=== PATIENT | female | born 1935 | race Caucasian/White ===

== ENCOUNTER 2020-11-15 09:23 | Outpatient (CLI) | payer MEDICARE, SELFPAY ==
[2020-11-15 12:41] LABS: Hemoglobin A1C 5.8 % (<5.7)
== END 2020-11-15 09:24 | disposition home or self-care (01) ==
LOC: ANHLAB 09:34
DX: R73.9 Hyperglycemia, unspecified (principal)
CPT/HCPCS: 36415; 83036

== ENCOUNTER 2021-12-11 09:38 | Emergency (ER) | payer MEDICARE, SELFPAY ==
[2021-12-11 09:46] VITALS: BP 108/72; PULSE 91; RESP 16; TEMP 36.6; O2SAT 99
--- NOTE | 2021-12-11 10:39 | ED.GENADULT ---
HPI - General Adult General Chief complaint: Skin/Abscess/Foreign Body Stated complaint: rash Time Seen by Provider: 12/11/21 10:08 History of Present Illness HPI narrative: Patient is an 86-year-old female presenting with intermittent urticaria. Patient states that for the last several weeks she will randomly develop a couple of itchy hives which she then scratches until they become scabs. Patient states that she was given steroids by her PCP which did not provide relief. Patient was concerned that these lesions are bug bites so she came in for evaluation. She denies fevers or chills, headache, chest pain, shortness of breath, abdominal pain, nausea or vomiting, diarrhea, dysuria, leg swelling. She denies blistering. She denies any new detergents or lotions or other exposures. Patient states that she does have a product coordinator but she has not yet made an appointment with them regarding this issue. Related Data Home Medications Medication Instructions Recorded Confirmed amlodipine 5 mg tablet 5 mg PO DAILY 01/06/19 01/12/19 atorvastatin 20 mg tablet 20 mg PO DAILY 01/06/19 01/06/19 biotin 1,000 mcg chewable tablet 1,000 mcg PO DAILY 01/06/19 01/06/19 clonazepam 0.5 mg tablet 0.5 mg PO BID 01/06/19 01/12/19 duloxetine 60 mg capsule,delayed 60 mg PO BID 01/06/19 01/06/19 release hydrochlorothiazide 12.5 mg capsule 12.5 mg PO DAILY 01/06/19 01/06/19 levothyroxine 50 mcg tablet 50 mcg PO DAILY 01/06/19 01/06/19 (Synthroid) potassium chloride 10 mEq 10 meq PO DAILY 01/06/19 01/06/19 tablet,extended release Allergies Allergy/AdvReac Type Severity Reaction Status Date / Time ciprofloxacin Allergy Intermediate Other Verified 12/11/21 09:46 sulfamethoxazole Allergy Unknown UPSET Verified 12/11/21 09:46 STOMACH trimethoprim Allergy Unknown UPSET Verified 12/11/21 09:46 STOMACH valsartan Allergy Unknown Other Verified 12/11/21 09:46 nitrofurantoin AdvReac Mild Nausea Verified 12/11/21 09:46 MACROBID=V/D Allergy Mild Unknown Uncoded 12/11/21 09:46 Review of Systems Review of Systems: All systems reviewed & are unremarkable except as noted in HPI and below PMFSH Past Medical History Medical History Hyperlipidemia Hypertension Hypothyroid Migraine Spinal stenosis Social History Social History Gender identity (if verbalized by the patient): Female Exam Narrative: GENERAL: Well-appearing, well-nourished, and in no acute distress. HEAD: Normocephalic, atraumatic. EYES: PERRLA and EOMI. ENT: Nares clear, no rhinorrhea or epistaxis. Mucous membranes moist. NECK: Supple. CHEST: Clear to auscultation. No respiratory distress. HEART: Regular rate and rhythm. No murmur heard. Normal peripheral pulses. ABDOMEN: Soft, nontender, nondistended, normal active bowel sounds. EXTREMITIES: Normal range of motion. No edema. SKIN: Small erythematous lesion anterior left thigh that is consistent with urticaria, she has several scattered small scabs on her legs and upper back that she states started as hives, no evidence of surrounding erythema or drainage, no blistering NEURO: No focal deficits. Alert and oriented x3. PSYCH: Normal mood and affect. Course Course Emergency Course: Patient is an 86-year-old female with history as above presenting with intermittent urticaria. Vitals are within normal limits. Patient is well-appearing and in no acute distress. Exam is remarkable for the above. Patient points to a small lesion on her anterior left thigh as an example of how these lesions began. It appears to be a hive. Patient states that they then become scabs after she scratches them. I discussed with the patient about trying to abstain from scratching as much as possible. We will trial some loratadine for symptomatic control. Advised that she follow-up with her product coordinator. Appropriate return precaution
[2021-12-11] MEDS: LORATADINE 10 MG TABLET PO (11:05)
== END 2021-12-11 11:12 | disposition home or self-care (01) ==
PROVIDERS: Emergency Provider Emergency Medicine
DX: L50.9 Urticaria, unspecified (principal); E78.5 Hyperlipidemia, unspecified; I10 Essential (primary) hypertension; E03.9 Hypothyroidism, unspecified
CPT/HCPCS: 99283; A9270

== ENCOUNTER 2022-05-13 07:02 | Emergency (ER) | payer MEDICARE, SELFPAY ==
--- NOTE | ~2022-05-13 | CT_ITS ---
CT head without contrast Indication: Headache Technique: Serial scans were obtained through the brain without the administration of contrast. Dose reduction technique was used on this scan by utilizing automated exposure control and iterative recon struction technique. The dose-length product (DLP) was 605.33 mGy-cm. Findings: There is no evidence of intracranial hemorrhage, mass lesion, or acute infarct. The ventri cles and subarachnoid spaces are dilated, consistent with mild atrophy. Low attenuation regions are seen within the periventricular white matter bilaterally, likely representing changes from chronic mi crovascular ischemic disease. There is no evidence of edema, mass effect or midline shift. The visu alized paranasal sinuses and mastoid air cells are clear. Impression: No intracranial hemorrhage, mass, or acute infarct. Atrophy and chronic white matter changes, as above. Reviewed, dictated and finalized at location . Impression: No intracranial hemorrhage, mass, or acute infarct. Atrophy and chronic white matter changes, as above.
--- NOTE | ~2022-05-13 | CT_ITS ---
Noncontrast CT scan of the cervical spine Technique: Multiple contiguous axial [address] images of the cervical spine were obtained and rec onstructed in 2D sagittal and coronal planes on the acquisition scanner. Dose reduction technique was used on this scan by utilizing automated exposure control, adjustment of the mA and/or kV according to patient size. Clinical History: Pain Findings: No fracture identified. Minimal grade 1 anterolisthesis of C3 over C4 noted. There is advan josephine degenerative change at the articulation of the odontoid process with the anterior arch of C1. The re is moderate degenerative disc narrowing at C4-C5 and C5-C6. There is mild to moderate facet arthro miguel throughout the cervical spine. There is probable right neural foraminal narrowing at C3-C4 and C4-C5. No prevertebral soft tissue swelling. Impression: No fracture. Minimal grade 1 anterolisthesis of C3 over C4. Degenerative spondylosis, as above. Reviewed, dictated and finalized at [facility]. Impression: No fracture. Minimal grade 1 anterolisthesis of C3 over C4. Degenerative spondylosis, as above.
[2022-05-13 07:05] VITALS: BP 128/78; PULSE 80; RESP 16; TEMP 36.4; O2SAT 98
--- NOTE | 2022-05-13 07:15 | ED.GENADULT ---
HPI - General Adult General Chief complaint: Unspecified Stated complaint: neck/head pain History of Present Illness HPI narrative: 87-year-old female with history of chronic lower back pain presented to the emergency department for evaluation of upper back pain and neck pain that radiated to her head. Patient states over the last few weeks she has had lower back pain and has had a follow-up at [facility] for this pain. Patient was unsure of the results of her imaging. Patient has been taking tramadol and aspirin for her pain control. Patient states that last night her back pain radiated up to her upper back and into her neck and posterior scalp. Patient does have a burn to her right forehead that she states was from using a heating pad on her head while she was sleeping. Patient states that she is concerned about having a stroke this morning due to the level of pain so she presented to the emergency department by EMS for evaluation. Patient has no prior history of CVA. Patient denies any recent falls or injuries. Patient denies any cough colds or fevers. Patient reports no associated numbness or weakness with this. Related Data Home Medications Medication Instructions Recorded Confirmed amlodipine 5 mg tablet 5 mg PO DAILY 01/06/19 01/12/19 atorvastatin 20 mg tablet 20 mg PO DAILY 01/06/19 01/06/19 biotin 1,000 mcg chewable tablet 1,000 mcg PO DAILY 01/06/19 01/06/19 clonazepam 0.5 mg tablet 0.5 mg PO BID 01/06/19 01/12/19 duloxetine 60 mg capsule,delayed 60 mg PO BID 01/06/19 01/06/19 release hydrochlorothiazide 12.5 mg capsule 12.5 mg PO DAILY 01/06/19 01/06/19 levothyroxine 50 mcg tablet 50 mcg PO DAILY 01/06/19 01/06/19 (Synthroid) potassium chloride 10 mEq 10 meq PO DAILY 01/06/19 01/06/19 tablet,extended release Allergies Allergy/AdvReac Type Severity Reaction Status Date / Time ciprofloxacin Allergy Intermediate Other Verified 12/11/21 09:46 valsartan Allergy Unknown Other Verified 12/11/21 09:46 nitrofurantoin AdvReac Mild Nausea,Vomiting, Verified 05/13/22 07:14 Diarrhea sulfamethoxazole AdvReac Unknown UPSET Verified 05/13/22 07:14 STOMACH trimethoprim AdvReac Unknown UPSET Verified 05/13/22 07:14 STOMACH Review of Systems Review of Systems: All systems reviewed & are unremarkable except as noted in HPI and below PMFSH Past Medical History Medical History Hyperlipidemia Hypertension Hypothyroid Migraine Spinal stenosis Social History Social History Gender identity (if verbalized by the patient): Female Exam Narrative: APPEARANCE: Well appearing, no pain, no distress, well-nourished. HEAD: normocephalic, atraumatic. EYES: PERRLA/EOMI, conjunctivae clear. NOSE: Normal no drainage EARS:TMS clear with good light reflex. THROAT: Pharynx clear, no exudate. NECK: Supple. No adenopathy, no masses. RESPIRATORY: Airway patent, respirations nonlabored. Clear to auscultation bilaterally, no rales, rhonchi, wheezing. CARDIOVASCULAR: Regular rate and rhythm without murmurs rubs or gallops. ABDOMINAL: Soft, nontender, nondistended, normal bowel sounds MUSCULOSKELETAL: Moves all extremities. Cervical spine tenderness with tenderness of the paraspinal muscles. Tenderness into the right shoulder. NEURO: Alert. Cranial nerves II through XII intact. Good gait. Good coordination. No paresthesias or weakness SKIN: Healing burn to right forehead with associated ecchymosis but no erythema or concern for underlying cellulitis or infection Course Course Emergency Course: 87-year-old female with neck and posterior headache. CT cervical spine and CT brain were ordered to rule out for acute fracture dislocation or intracranial abnormality. CT C-spine did show a minimal grade 1 anterolisthesis of C3 on C4. Patient is neurovascular intact and denies any associated numbness or weakn
[2022-05-13] MEDS: CYCLOBENZAPRINE HCL 10 MG TABLET PO (07:22)
[2022-05-13 10:07] VITALS: BP 103/67; O2SAT 96
[2022-05-13] MEDS: HYDROcodone/acetaminophen (*CRX) 5-325 MG TABLET 1 TAB PO (10:10)
[2022-05-13 10:16] VITALS: BP 118/102; O2SAT 94
[2022-05-13 10:32] VITALS: BP 104/50; O2SAT 97
== END 2022-05-13 10:33 | disposition home or self-care (01) ==
PROVIDERS: Emergency Provider Emergency Medicine
DX: M43.12 Spondylolisthesis, cervical region (principal); M54.2 Cervicalgia; E78.5 Hyperlipidemia, unspecified; I10 Essential (primary) hypertension; E03.9 Hypothyroidism, unspecified; M47.812 Spondylosis without myelopathy or radiculopathy, cervical region
CPT/HCPCS: 70450; 72125; 99284; A9270

== ENCOUNTER 2022-08-03 09:17 | Emergency (ER) | payer MEDICARE, MEDICAID, SELFPAY ==
--- NOTE | ~2022-08-03 | CT_ITS ---
EXAMINATION: CT abdomen pelvis wo con DATE: 08/03/2022 10:44 INDICATION: Right flank pain, dysuria. TECHNIQUE: Computed tomography (CT) of the abdomen and pelvis was performed without intravenous contr ast. Automated exposure control and iterative reconstruction technique were employed. Exam dose: 467 .82 mGy-cm total exam DLP. COMPARISON: None. FINDINGS: There is by basilar atelectasis, primarily involving the lower lobes. Cardiomegaly. No pericardial or pleural effusion. There is some aortic valvular calcification Moderately large sliding hiatal hernia. The gallbladder is apparently surgically absent. No hepatic space-occupying mass lesion or bile duct dilatation. There are some calcified splenic and hepatic granulomas. No splenomegaly. There is pancre atic atrophy. No pancreatic duct dilatation or pancreatic calcification is noted. Normal morphology of the adrenal glands. There is a 6 mm hypodensity exophytic cortical cyst of the l eft kidney with attenuation of the 100 Hounsfield units. No suspicious renal mass lesion is evident o n this limited noncontrast examination. No urinary tract calculus or hydroureteronephrosis. There is prominent diffuse thickening of the urinary bladder wall with prominent perivesical fat stra nding, consistent with cystitis. There are multiple sigmoid colon diverticula. There is increased density in the fat between adjacent sections of the sigmoid colon which may be due to diverticulitis. No bowel obstruction, bowel wall thickening, pneumatosis or intraperitoneal free air is detected. There is extensive calcification of the included descending thoracic aorta as well as the abdominal a kiki, prominent calcification at the origins of the celiac, superior mesenteric and renal arteries in addition to the iliac and femoral artery calcifications. No abdominal aortic aneurysm. No intraperit helm or retroperitoneal or pelvic mass lesion or adenopathy or ascites. Small fat-containing umbilical hernia. There is diffuse osteopenia. There is degenerative change of the lower thoracic spine including particularly severe degenerative d isc disease and mild retrolisthesis at T12-L1. There is prominent degenerative changes apophyseal reymundo nts of the lumbar and lumbosacral spine with associated grade 1 anterolisthesis at L4-5 and to a slig ht extent L3-4. IMPRESSION: Prominent diffuse thickening of the right bladder wall without perivesical fat stranding consistent with cystitis Diverticulosis sigmoid colon with suggestion of sigmoid mild diverticulitis, without abscess Moderately large sliding hiatal hernia Status post cholecystectomy Reviewed, dictated and finalized at [facility]. Reviewed, dictated and finalized at [facility]. IMPRESSION: Prominent diffuse thickening of the right bladder wall without per ivesical fat stranding consistent with cystitis Diverticulosis sigmoid colon with suggestion of sigmoid mild diverticulitis, wi thout abscess Moderately large sliding hiatal hernia Status post cholecystectomy
[2022-08-03 09:31] VITALS: BP 127/60; PULSE 84; RESP 17; TEMP 36.6; O2SAT 97
[2022-08-03 09:54] LABS: Basophils Percent Auto 0.3 % (0.2-1.2); Eosinophils Absolute Auto 0.2 K/mm3 (0-0.3); Hematocrit 38.6 % (37.0-47.0); Immature Granulocyte Absolute 0.07 K/mm3 (0.00-0.031); Immature Granulocyte Percent A 0.6 % (0-0.5); Lymphocytes Absolute Auto 2.54 K/mm3 (0.9-3.2); Lymphocytes Percent Auto 21.7 % (18.3-44.2); Mean Corpuscular HGB Conc 33.7 g/dl (32-36); Mean Corpuscular Hemoglobin 32.2 pg (26-34); Mean Corpuscular Volume 95.5 fl (80-100); Mean Platelet Volume 10.4 fl (7.4-10.4); Monocytes Absolute Auto 1.1 K/mm3 (0.1-0.6); Monocytes Percent Auto 9.1 % (2.6-8.5); Neutrophils Absolute Auto 7.7 K/mm3 (1.3-6.7); Neutrophils Percent Auto 66.3 % (45.5-73.1); Platelet Count Result 215 k/mm3 (150-375); Red Blood Count 4.04 M/mm3 (4.2-5.4); Red Cell Distribution Width 14.3 % (11.5-14.5); White Blood Count 11.7 K/mm3 (4.5-10.0)
[2022-08-03 10:05] LABS: Alanine Aminotransferase 18 U/L (6-35); Alkaline Phosphatase 74 U/L (38-126); Anion Gap 6 mmol/L (8-16); Aspartate Amino Transferase 23 U/L (14-36); Bilirubin,Total 0.9 mg/dL (0.2-1.3); Blood Urea Nitrogen 13 mg/dL (7-17); Calcium 9.3 mg/dL (8.4-10.2); Carbon Dioxide 36 mmol/L (22-30); Chloride 95 mmol/L (98-107); Estimated CRCL calculation 43 ml/min; Estimated Glomerular Filt Rate > 60; Glucose 148 mg/dL (65-110); Lipase 31 U/L (23-300); Sodium 137 mmol/L (137-145)
[2022-08-03 10:14] LABS: Appearance Urine Cloudy (Clear); Bacteria Urine None Seen /hpf; Bilirubin Urine 2+ (Negative); Blood Urine 2+ (Negative); Color Urine Orange (Yellow); Glucose Urine UA Trace mg/dL (Negative); Ketones Urine Negative (Negative); Leukocyte Esterase Ur 2+ LEU/UL (Negative); Need Manual Microscopic Reviewed; Nitrate Urine Positive (Negative); Non Pathogenic Casts 0-2; Protein Urine 4+ mg/dL (Negative); RBC Urine 51-100 /hpf (0-2); Specific Grav Ur 1.026 (1.001-1.035); Squamous Epithelial Cell Urine None seen /hpf (Few); WBC Clumps Urine Present /HPF; WBC Urine >100 /hpf; pH Urine 6.5 (5.0-9.0)
[2022-08-03 10:18] LABS: Add Urine Microscopic? YES
--- NOTE | 2022-08-03 10:21 | ED.FEMALEGU ---
HPI - Female Genitourinary General Chief complaint: Urogenital-Female Stated complaint: URINARY ISSUES Time Seen by Provider: 08/03/22 09:32 Source: patient and RN notes reviewed Mode of arrival: ambulatory Limitations: no limitations History of Present Illness HPI Narrative: This is an 87 year old female with history of hypertension who presents for evaluation of a urinary tract infection. Patient developed burning with urination last night. She has been taking pyridium for her symptoms. She also reports intermittent right lower abdominal pain. She also reports low back pain but she is unsure if this is her chronic back pain. She denies nausea, vomiting, fever or hematuria. She has not been on antibiotics in past 90 days. She denies history of kidney stones. She denies abdominal pain but she took tramadol last night. Related Data Home Medications Medication Instructions Recorded Confirmed amlodipine 5 mg tablet 5 mg PO DAILY 01/06/19 01/12/19 atorvastatin 20 mg tablet 20 mg PO DAILY 01/06/19 01/06/19 biotin 1,000 mcg chewable tablet 1,000 mcg PO DAILY 01/06/19 01/06/19 clonazepam 0.5 mg tablet 0.5 mg PO BID 01/06/19 01/12/19 duloxetine 60 mg capsule,delayed 60 mg PO BID 01/06/19 01/06/19 release hydrochlorothiazide 12.5 mg capsule 12.5 mg PO DAILY 01/06/19 01/06/19 levothyroxine 50 mcg tablet 50 mcg PO DAILY 01/06/19 01/06/19 (Synthroid) potassium chloride 10 mEq 10 meq PO DAILY 01/06/19 01/06/19 tablet,extended release Allergies Allergy/AdvReac Type Severity Reaction Status Date / Time ciprofloxacin Allergy Intermediate Other Verified 08/03/22 09:36 valsartan Allergy Unknown Other Verified 08/03/22 09:36 nitrofurantoin AdvReac Mild Nausea,Vomiting, Verified 08/03/22 09:36 Diarrhea sulfamethoxazole AdvReac Unknown UPSET Verified 08/03/22 09:36 STOMACH trimethoprim AdvReac Unknown UPSET Verified 08/03/22 09:36 STOMACH Review of Systems Constitutional: Constitutional: Denies weakness Cardiovascular: Cardiovascular: Denies syncope, Denies rapid heart rate, Denies irregular heart rhythm, Denies leg edema and Denies dyspnea Respiratory: Respiratory: Denies chest congestion, Denies hemoptysis, Denies excessive phlegm production and Denies dyspnea Gastrointestinal: Gastrointestinal: Reports abdominal pain, Denies hematochezia, Denies diarrhea and Denies vomiting Genitourinary: Genitourinary: Denies hematuria and Reports dysuria Musculoskeletal: Musculoskeletal: Reports back pain (chronic), Denies joint swelling, Denies loss of height and Denies muscle weakness Neurologic: Denies syncope, Denies focal weakness and Denies weakness PMFSH Past Medical History Medical History (Updated 08/03/22 @ 18:00 by Luciana Clemons MD) Hyperlipidemia Hypertension Hypothyroid Migraine Spinal stenosis Surgical History Surgical History (Updated 08/03/22 @ 10:24 by Luciana Clemons MD) History of hysterectomy Social History Social History (Updated 08/03/22 @ 10:25 by Luciana Clemons MD) Smoking status: Never smoker Gender identity (if verbalized by the patient): Female Exam Const: General: no acute distress and alert Nutritional Appearance: well nourished Orientation/consciousness: patient oriented x3 HENMT: Head: normal to inspection Eyes: EOM: EOMs intact bilaterally Neck: Neck: normal visual inspection Chest: Chest palpation & inspection: normal inspection of the chest Resp: Effort & Inspection: normal respiratory effort Auscultation: clear to auscultation bilaterally Cardio: Rate: regular rate Rhythm: regular rhythm Heart sounds: no murmurs GI: GI Palp: Yes Soft to palpation, Yes Tenderness to palpation present (GI) (RLQ, RUQ), No Guarding due to palpation present (GI) and No Rigid due to palpation Auscultation: normal bowel sounds Back/Spine/Pelvis: Back: no CVA tenderness Skin: General skin exam: normal color Rashes: no rashes Wounds: no wounds Neuro: Genera
[2022-08-03 11:14] VITALS: BP 137/88; PULSE 73; RESP 16; O2SAT 96
[2022-08-03] MEDS: POTASSIUM CHLORIDE 20 MEQ TABLET 40 MEQ PO (12:35)
[2022-08-03 12:42] VITALS: BP 102/80; PULSE 77; RESP 18; O2SAT 96
== END 2022-08-03 12:43 | disposition home or self-care (01) ==
PROVIDERS: Emergency Provider General Practice
DX: N30.90 Cystitis, unspecified without hematuria (principal); K57.92 Diverticulitis of intestine, part unspecified, without perforation or abscess without bleeding; E87.6 Hypokalemia; I10 Essential (primary) hypertension; E78.5 Hyperlipidemia, unspecified; E03.9 Hypothyroidism, unspecified
CPT/HCPCS: 36415; 74176; 80053; 81001; 83690; 85025; 87086; 96365; 99284; A9270; J0696

== ENCOUNTER 2022-10-12 12:11 | Emergency (ER) | payer MEDICARE, MEDICAID, SELFPAY ==
[2022-10-12 12:12] VITALS: BP 144/89; PULSE 97; RESP 18; TEMP 36.5; O2SAT 98
--- NOTE | 2022-10-12 13:17 | ED.GENADULT ---
HPI - General Adult General Chief complaint: Skin/Abscess/Foreign Body Stated complaint: rash Time Seen by Provider: 10/12/22 13:09 History of Present Illness HPI narrative: Patient is an 87-year-old female with history of degenerative disc disease, recurrent UTIs following with urology here with a rash. She states that the rash started 2 days ago near her right ear and progress to cover her right face, left forehead and left upper extremity. She notes that the rash has been itchy and she has been using topical treatment only with oil of wintergreen and oil of peppermint which are mildly helping. She denies any hearing changes or ringing of the ears. She denies any outdoor exposure to plants or wildlife. She denies any changes in soaps, detergents, foods or medications. Her only known allergy is to couple of antibiotics which causes her GI upset. She denies chest pain, shortness of breath, throat swelling. No fever or chills. Related Data Home Medications Medication Instructions Recorded Confirmed amlodipine 5 mg tablet 5 mg PO DAILY 01/06/19 01/12/19 atorvastatin 20 mg tablet 20 mg PO DAILY 01/06/19 01/06/19 biotin 1,000 mcg chewable tablet 1,000 mcg PO DAILY 01/06/19 01/06/19 clonazepam 0.5 mg tablet 0.5 mg PO BID 01/06/19 01/12/19 duloxetine 60 mg capsule,delayed 60 mg PO BID 01/06/19 01/06/19 release hydrochlorothiazide 12.5 mg capsule 12.5 mg PO DAILY 01/06/19 01/06/19 levothyroxine 50 mcg tablet 50 mcg PO DAILY 01/06/19 01/06/19 (Synthroid) potassium chloride 10 mEq 10 meq PO DAILY 01/06/19 01/06/19 tablet,extended release Allergies Allergy/AdvReac Type Severity Reaction Status Date / Time ciprofloxacin Allergy Intermediate Other Verified 08/03/22 09:36 valsartan Allergy Unknown Other Verified 08/03/22 09:36 nitrofurantoin AdvReac Mild Nausea,Vomiting, Verified 08/03/22 09:36 Diarrhea sulfamethoxazole AdvReac Unknown UPSET Verified 08/03/22 09:36 STOMACH trimethoprim AdvReac Unknown UPSET Verified 08/03/22 09:36 STOMACH Review of Systems Review of Systems: All systems reviewed & are unremarkable except as noted in HPI and below Constitutional: Constitutional: Reports no additional constitutional complaints Eyes: Comments: no vision changes PMFSH Past Medical History Medical History (Updated 10/12/22 @ 14:23 by Angela Coleman MD) Hyperlipidemia Hypertension Hypothyroid Migraine Spinal stenosis Surgical History Surgical History (Updated 08/03/22 @ 10:24 by Luciana Clemons MD) History of hysterectomy Social History Social History (Updated 08/03/22 @ 10:25 by Luciana Clemons MD) Smoking status: Never smoker Gender identity (if verbalized by the patient): Female Exam Narrative: GENERAL: Well-appearing, well-nourished, and in no acute distress. HEAD: Normocephalic, atraumatic. She has a maculopapular raised rash present posterior to the right ear and over the right face. The rash is also present over the left forehead. No vesicles appreciated EYES: PERRLA and EOMI. ENT: Nares clear. Mucous membranes moist. No lesions appreciated over the TM on the left or right. No nares involvement NECK: Supple. CHEST: Clear to auscultation. No respiratory distress. HEART: Regular rate and rhythm. Normal peripheral pulses. ABDOMEN: Soft, nontender, nondistended. EXTREMITIES: Normal range of motion. No edema. SKIN: Warm, dry. rash over face as described above which is also present in a 4x4 cm patch on her left AC. NEURO: No focal deficits. Alert and oriented x3. PSYCH: Normal mood and affect. Course Course Emergency Course: Chart review performed. Nursing note states that patient is here for a rash on her face right ear and left arm. Triage vitals was grossly within normal limits. Last ED visit note reviewed. She was seen here on 08/03/2022 and diagnosed with cystitis and mild diverticulitis for which she was treated for outpatient. Patient is se
[2022-10-12 13:52] LABS: Basophils Absolute Auto 0.1 K/mm3 (0.0-0.1); Basophils Percent Auto 0.8 % (0.2-1.2); Eosinophils Absolute Auto 0.2 K/mm3 (0-0.3); Eosinophils Percent Auto 3.8 % (0-4.4); Hematocrit 40.1 % (37.0-47.0); Hemoglobin 13.2 g/dL (12.0-15.0); Immature Granulocyte Absolute 0.03 K/mm3 (0.00-0.031); Immature Granulocyte Percent A 0.5 % (0-0.5); Lymphocytes Absolute Auto 1.87 K/mm3 (0.9-3.2); Lymphocytes Percent Auto 30.7 % (18.3-44.2); Mean Corpuscular HGB Conc 32.9 g/dl (32-36); Mean Corpuscular Hemoglobin 32.4 pg (26-34); Mean Corpuscular Volume 98.5 fl (80-100); Mean Platelet Volume 9.8 fl (7.4-10.4); Monocytes Absolute Auto 0.6 K/mm3 (0.1-0.6); Monocytes Percent Auto 9.9 % (2.6-8.5); Neutrophils Absolute Auto 3.3 K/mm3 (1.3-6.7); Neutrophils Percent Auto 54.3 % (45.5-73.1); Platelet Count Result 189 k/mm3 (150-375); Red Blood Count 4.07 M/mm3 (4.2-5.4); Red Cell Distribution Width 13.1 % (11.5-14.5); White Blood Count 6.1 K/mm3 (4.5-10.0)
[2022-10-12 14:03] LABS: Alanine Aminotransferase 19 U/L (6-35); Albumin Level 4.1 g/dL (3.5-5.1); Alkaline Phosphatase 103 U/L (38-126); Anion Gap 4 mmol/L (8-16); Aspartate Amino Transferase 27 U/L (14-36); Bilirubin,Total 0.7 mg/dL (0.2-1.3); Blood Urea Nitrogen 14 mg/dL (7-17); Calcium 8.8 mg/dL (8.4-10.2); Carbon Dioxide 31 mmol/L (22-30); Chloride 98 mmol/L (98-107); Estimated CRCL calculation 49 ml/min; Estimated Glomerular Filt Rate > 60; Glucose 120 mg/dL (65-110); Potassium 3.9 mmol/L (3.4-5.0); Sodium 133 mmol/L (137-145)
[2022-10-12] MEDS: predniSONE 20 MG TABLET 40 MG PO (14:05)
[2022-10-12] MEDS: hydrOXYzine HCL 25 MG TABLET PO (14:05)
[2022-10-12 14:07] LABS: Salicylate < 1.0 mg/dL (2-20)
[2022-10-12 14:34] VITALS: BP 132/78; PULSE 88; RESP 16; TEMP 36.8; O2SAT 98
== END 2022-10-12 14:37 | disposition home or self-care (01) ==
PROVIDERS: Emergency Provider Student in an Organized Health Care Education/Training Program
DX: R21 Rash and other nonspecific skin eruption (principal); E78.5 Hyperlipidemia, unspecified; I10 Essential (primary) hypertension; E03.9 Hypothyroidism, unspecified; Z87.440 Personal history of urinary (tract) infections; Z90.710 Acquired absence of both cervix and uterus; Z79.899 Other long term (current) drug therapy
CPT/HCPCS: 36415; 80053; 80307; 85025; 99283; A9270; J7512

== ENCOUNTER 2023-02-20 13:41 | Emergency (ER) | payer MEDICARE, MEDICAID, SELFPAY ==
--- NOTE | ~2023-02-20 | XR_ITS ---
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 RESULT: Lines, tubes, and devices: Right shoulder arthroplasty. Right axillary surgical clips. Lungs and pleura: Senescent change, minimal basilar scar, otherwise clear. Cardiomediastinal silhouette: Stable. Other: No acute osseous or upper abdominal finding. IMPRESSION: No acute cardiopulmonary process. Reviewed, dictated and finalized at location K. NG AND BORING MACHINE FEEDER
[2023-02-20 13:43] VITALS: BP 114/72; PULSE 93; RESP 16; TEMP 36.4; O2SAT 97
[2023-02-20 15:15] VITALS: BP 125/81; PULSE 77; RESP 16; O2SAT 99
--- NOTE | 2023-02-20 15:33 | ECG_ITS ---
Measurements Intervals [place] Rate: 75 P: 4 RI: 128 QRS: -12 QRSD: 83 T: 95 QT: 327 QTc: 365 Interpretive Statements SINUS RHYTHM NONSPECIFIC ST & T-WAVE ABNORMALITY ABNORMAL ECG NO PREVIOUS ECG AVAILABLE FOR COMPARISON Electronically Signed On 02-20-2023 18:09:49 SLIP COVER MAKER by Pranay Brennan M.D.
--- NOTE | 2023-02-20 15:33 | ED.GENADULT ---
HPI - General Adult General Chief complaint: Recheck/Abnormal Lab/Rx Stated complaint: low BP Time Seen by Provider: 02/20/23 15:24 Source: patient Limitations: no limitations History of Present Illness HPI narrative: this is a 88-year-old who states yesterday she started feeling on the bowel with decreased energy and decreased appetite. Today, she had 2 episodes of nonbloody diarrhea and 1 episode of nonbloody nonbilious emesis. She also has chronic back pain secondary to degenerative disc disease. She had low back pain yesterday that became mid back pain today. She states this is not unusual for her however it has been associated with myalgias. she took her blood pressure and it was low at 8 7/68. She lives alone so she Did not want to take her tramadol. She feels like she has been dehydrated so she has been trying to drink some water. She does endorse occasional cough. She has had some chest pain as well though she can not tell whether it was her back pain radiating to her front. No shortness of breath or fevers. She describes abdominal pain just before diarrhea otherwise not at rest. Related Data Home Medications Medication Instructions Recorded Confirmed amlodipine 5 mg tablet 5 mg PO DAILY 01/06/19 01/12/19 atorvastatin 20 mg tablet 20 mg PO DAILY 01/06/19 01/06/19 biotin 1,000 mcg chewable tablet 1,000 mcg PO DAILY 01/06/19 01/06/19 clonazepam 0.5 mg tablet 0.5 mg PO BID 01/06/19 01/12/19 duloxetine 60 mg capsule,delayed 60 mg PO BID 01/06/19 01/06/19 release hydrochlorothiazide 12.5 mg capsule 12.5 mg PO DAILY 01/06/19 01/06/19 levothyroxine 50 mcg tablet 50 mcg PO DAILY 01/06/19 01/06/19 (Synthroid) potassium chloride 10 mEq 10 meq PO DAILY 01/06/19 01/06/19 tablet,extended release Allergies Allergy/AdvReac Type Severity Reaction Status Date / Time ciprofloxacin Allergy Intermediate Other Verified 08/03/22 09:36 valsartan Allergy Unknown Other Verified 08/03/22 09:36 nitrofurantoin AdvReac Mild Nausea,Vomiting, Verified 08/03/22 09:36 Diarrhea sulfamethoxazole AdvReac Unknown UPSET Verified 08/03/22 09:36 STOMACH trimethoprim AdvReac Unknown UPSET Verified 08/03/22 09:36 STOMACH PMFSH Past Medical History Medical History Degenerative disc disease Hyperlipidemia Hypertension Hypothyroid Migraine Spinal stenosis Surgical History Surgical History (Updated 08/03/22 @ 10:24 by Luciana Clemons MD) History of hysterectomy Social History Social History (Updated 08/03/22 @ 10:25 by Luciana Clemons MD) Smoking status: Never smoker Gender identity (if verbalized by the patient): Female Exam Narrative: GENERAL: Well-appearing, well-nourished, and in no acute distress. HEAD: Normocephalic, atraumatic. EYES: Non injected, non icteric ENT: Nares clear, no rhinorrhea or epistaxis. NECK: Supple. CHEST: Speaking in full sentences. No respiratory distress. HEART: Regular rate and rhythm. . ABDOMEN: Soft, nondistended. EXTREMITIES: Normal range of motion. No edema. SKIN: Warm, dry, no rash. NEURO: No focal deficits. Alert and oriented x3. PSYCH: Normal mood and affect. Course Vital Signs Vital signs: Vital Signs Temperature 97.6 F 02/20/23 13:43 Pulse Rate 93 02/20/23 13:43 Respiratory Rate 16 02/20/23 13:43 Blood Pressure 114/72 02/20/23 13:43 Pulse Oximetry 97 02/20/23 13:43 Oxygen Delivery Room Air 02/20/23 13:43 Temperature 97.6 F 02/20/23 13:43 Pulse Rate 77 02/20/23 15:15 Respiratory Rate 16 02/20/23 15:15 Blood Pressure 129/82 02/20/23 18:39 Pulse Oximetry 99 02/20/23 15:15 Oxygen Delivery Room Air 02/20/23 13:43 Medical Decision Making MDM Narrative Medical decision making narrative: Patient presents with decreased energy, decreased appetite as well as myalgias and an episode of vomiting and diarrhea. VS within normal limits in ED and
[2023-02-20 16:03] LABS: Basophils Percent Auto 0.4 % (0.2-1.2); Eosinophils Absolute Auto 0.1 K/mm3 (0-0.3); Eosinophils Percent Auto 0.9 % (0-4.4); Hematocrit 40.9 % (37.0-47.0); Hemoglobin 13.3 g/dL (12.0-15.0); Immature Granulocyte Absolute 0.03 K/mm3 (0.00-0.031); Immature Granulocyte Percent A 0.3 % (0-0.5); Lymphocytes Absolute Auto 2.61 K/mm3 (0.9-3.2); Lymphocytes Percent Auto 27.3 % (18.3-44.2); Mean Corpuscular HGB Conc 32.5 g/dl (32-36); Mean Corpuscular Hemoglobin 31.4 pg (26-34); Mean Corpuscular Volume 96.5 fl (80-100); Mean Platelet Volume 10.7 fl (7.4-10.4); Monocytes Absolute Auto 0.9 K/mm3 (0.1-0.6); Monocytes Percent Auto 9.3 % (2.6-8.5); Neutrophils Absolute Auto 5.9 K/mm3 (1.3-6.7); Neutrophils Percent Auto 61.8 % (45.5-73.1); Platelet Count Result 200 k/mm3 (150-375); Red Blood Count 4.24 M/mm3 (4.2-5.4); Red Cell Distribution Width 14.1 % (11.5-14.5); White Blood Count 9.6 K/mm3 (4.5-10.0)
[2023-02-20] MEDS: SODIUM CHLORIDE 0.9% IV 1,000 ML 999 ML IV CONT (16:05)
[2023-02-20 16:11] LABS: Alanine Aminotransferase 19 U/L (6-35); Albumin Level 4.2 g/dL (3.5-5.1); Alkaline Phosphatase 78 U/L (38-126); Anion Gap 6 mmol/L (8-16); Aspartate Amino Transferase 34 U/L (14-36); Bilirubin,Total 0.8 mg/dL (0.2-1.3); Blood Urea Nitrogen 16 mg/dL (7-17); Calcium 9.6 mg/dL (8.4-10.2); Carbon Dioxide 32 mmol/L (22-30); Chloride 98 mmol/L (98-107); Creatine Kinase 84 U/L (30-135); Estimated CRCL calculation 42 ml/min; Estimated Glomerular Filt Rate > 60; Glucose 111 mg/dL (65-110); Lipase 47 U/L (23-300); Potassium 3.3 mmol/L (3.4-5.0); Sodium 136 mmol/L (137-145)
[2023-02-20 16:23] LABS: Troponin I < 0.012 ng/mL (0.000-0.034)
[2023-02-20 16:48] LABS: Influenza A QL RT-PCR Negative (Negative); Influenza B QL RT-PCR Negative (Negative); RSV RNA, RT-PCR Negative (Negative); SARS-CoV-2 RNA PCR Negative (Negative)
[2023-02-20] MEDS: ACETAMINOPHEN 500 MG TABLET 1000 MG PO (17:08)
[2023-02-20] MEDS: POTASSIUM PHOS/SODIUM PHOS 250 MG TABLET PO (17:08)
[2023-02-20 18:08] LABS: Appearance Urine Cloudy (Clear); Bacteria Urine None Seen /hpf; Bilirubin Urine Negative (Negative); Color Urine Yellow (Yellow); Glucose Urine UA Negative (Negative); Ketones Urine Negative (Negative); Leukocyte Esterase Ur 3+ LEU/UL (Negative); Nitrate Urine Negative (Negative); Non Pathogenic Casts 0-2; Protein Urine 1+ mg/dL (Negative); RBC Urine 0-2 /hpf (0-2); Specific Grav Ur 1.013 (1.001-1.035); Squamous Epithelial Cell Urine None seen /hpf (Few); WBC Urine >100 /hpf; pH Urine 7.5 (5.0-9.0)
[2023-02-20 18:22] LABS: Add Urine Microscopic? YES
[2023-02-20] MEDS: CEPHALEXIN 500 MG CAPSULE PO (18:31)
[2023-02-20] MEDS: KETOROLAC 15 MG/ML VIAL (*BKC) IV PUSH (18:31)
[2023-02-20 18:39] VITALS: BP 129/82
== END 2023-02-20 18:40 | disposition home or self-care (01) ==
PROVIDERS: Emergency Provider Student in an Organized Health Care Education/Training Program
DX: N39.0 Urinary tract infection, site not specified (principal); E87.6 Hypokalemia; Z20.822 Contact with and (suspected) exposure to COVID-19; E78.5 Hyperlipidemia, unspecified; I10 Essential (primary) hypertension; E03.9 Hypothyroidism, unspecified; M51.36 Other intervertebral disc degeneration, lumbar region; Z90.710 Acquired absence of both cervix and uterus
CPT/HCPCS: 36415; 71046; 80053; 81001; 82550; 83690; 84484; 85025; 87086; 87088; 87637; 93005; 96361; 96374; 99284; A9270; J1885; J7030

== ENCOUNTER 2023-03-26 08:29 | Emergency (ER) | payer MEDICARE, MEDICAID, SELFPAY ==
--- NOTE | ~2023-03-26 | XR_ITS ---
XR shoulder LT min 2V 03/26/2023 10:03 INDICATION: Trauma. Left shoulder pain. PROCEDURE: 4 views left shoulder COMPARISON: No prior studies for comparison. FINDINGS: Fracture, dislocation or subluxation is not identified. The soft tissues appear within norm al limits. No foreign bodies are identified. IMPRESSION: 1: NO ACUTE BONE OR JOINT ABNORMALITY IDENTIFIED. Reviewed, dictated and finalized at location B. PRESIDENT OF MANUFACTURING
--- NOTE | ~2023-03-26 | CT_ITS ---
Noncontrast CT scan of the cervical spine Technique: Multiple contiguous axial [address] images of the cervical spine were obtained and rec onstructed in 2D sagittal and coronal planes on the acquisition scanner. Dose reduction technique was used on this scan by utilizing automated exposure control, adjustment of the mA and/or kV according to patient size. The dose-length product (DLP) was 264.65 mGy-cm. Clinical History: Pain COMPARISON: 05/13/2022 Findings: No fracture identified. If there is stable minimal grade 1 anterolisthesis of C3 over C4. T here is stable degenerative disc changes in the cervical spine. There are stable degenerative change at the articulation of the odontoid process with the anterior arch of C1. There is stable extensive f acet arthropathy throughout cervical spine. There is bilateral neural foraminal narrowing at C3-C4. T here is right neural foraminal narrowing at C5-C6. No prevertebral soft tissue swelling. Impression: No acute fracture. Stable minimal grade 1 anterolisthesis of C3 over C4. Degenerative spondylosis. Reviewed, dictated and finalized at [facility]. R FULFILLMENT SPECIALIST Impression: No acute fracture. Stable minimal grade 1 anterolisthesis of C3 over C4. Degenerative spondylosis.
--- NOTE | ~2023-03-26 | CT_ITS ---
CT head without contrast Indication: Trauma COMPARISON: 05/13/2022 Technique: Serial scans were obtained through the brain without the administration of contrast. Dose reduction technique was used on this scan by utilizing automated exposure control and iterative recon struction technique. The dose-length product (DLP) was 605.33 mGy-cm. Findings: There is no evidence of intracranial hemorrhage, mass lesion, or acute infarct. The ventri cles and subarachnoid spaces are dilated, consistent with mild atrophy. Low attenuation regions are seen within the periventricular white matter bilaterally, likely representing changes from chronic mi crovascular ischemic disease. There is no evidence of edema, mass effect or midline shift. The visu alized paranasal sinuses and mastoid air cells are clear. Impression: No intracranial hemorrhage, mass, or acute infarct. Atrophy and chronic white matter changes, as above. Reviewed, dictated and finalized at [facility]. NICAL SALES REPRESENTATIVES Impression: No intracranial hemorrhage, mass, or acute infarct. Atrophy and chronic white matter changes, as above.
--- NOTE | ~2023-03-26 | XR_ITS ---
XR wrist LT min 3V 03/26/2023 10:03 Indication: Left wrist pain Procedure: 4 views left wrist Comparison: No prior studies for comparison. Findings: There is polyarticular osteoarthritis of the first carpometacarpal and triscaphe joints. Th ere is chondrocalcinosis. Osteopenia. No fracture or traumatic malalignment. No focal soft tissue abn ormality. Impression: 1: Moderate polyarticular osteoarthritis. Reviewed, dictated and finalized at location B. TIVE ART DIRECTOR Impression: 1: Moderate polyarticular osteoarthritis.
[2023-03-26 08:49] VITALS: BP 106/70; PULSE 96; RESP 18; TEMP 36.7; O2SAT 100
--- NOTE | 2023-03-26 09:37 | ED.FALL ---
HPI - Fall General Chief Complaint: Fall Stated Complaint: Fall Time Seen by Provider: 03/26/23 08:54 History of Present Illness HPI Narrative: 88-year-old female presenting to the emergency department for evaluation after having a ground level fall this morning. Patient reports she was attempting to walk to the bathroom and while sitting at edge of the bed at 4:00 a.m. she fell forward and injured her left shoulder. Patient did strike her head but denies any loss of consciousness. Patient is complaining of left shoulder left elbow and head/ neck pain. Patient denies any other pain or injury. Related Data Home Medications Medication Instructions Recorded Confirmed amlodipine 5 mg tablet 5 mg PO DAILY 01/06/19 01/12/19 atorvastatin 20 mg tablet 20 mg PO DAILY 01/06/19 01/06/19 biotin 1,000 mcg chewable tablet 1,000 mcg PO DAILY 01/06/19 01/06/19 clonazepam 0.5 mg tablet 0.5 mg PO BID 01/06/19 01/12/19 duloxetine 60 mg capsule,delayed 60 mg PO BID 01/06/19 01/06/19 release hydrochlorothiazide 12.5 mg capsule 12.5 mg PO DAILY 01/06/19 01/06/19 levothyroxine 50 mcg tablet 50 mcg PO DAILY 01/06/19 01/06/19 (Synthroid) potassium chloride 10 mEq 10 meq PO DAILY 01/06/19 01/06/19 tablet,extended release Allergies Allergy/AdvReac Type Severity Reaction Status Date / Time ciprofloxacin Allergy Intermediate Other Verified 03/26/23 10:04 valsartan Allergy Unknown Other Verified 03/26/23 10:04 nitrofurantoin AdvReac Mild Nausea,Vomiting, Verified 03/26/23 10:04 Diarrhea sulfamethoxazole AdvReac Unknown UPSET Verified 03/26/23 10:04 STOMACH trimethoprim AdvReac Unknown UPSET Verified 03/26/23 10:04 STOMACH Review of Systems Review of Systems: All systems reviewed & are unremarkable except as noted in HPI and below PMFSH Past Medical History Medical History Degenerative disc disease Hyperlipidemia Hypertension Hypothyroid Migraine Spinal stenosis Surgical History Surgical History (Updated 08/03/22 @ 10:24 by Luciana Clemons MD) History of hysterectomy Social History Social History (Updated 08/03/22 @ 10:25 by Luciana Clemons MD) Smoking status: Never smoker Gender identity (if verbalized by the patient): Female Exam Narrative: APPEARANCE: Well appearing, no pain, no distress, well-nourished. HEAD: normocephalic, atraumatic. EYES: PERRLA/EOMI, conjunctivae clear. NOSE: Normal no drainage NECK: Supple. No adenopathy, no masses. RESPIRATORY: Airway patent, respirations nonlabored. Clear to auscultation bilaterally, no rales, rhonchi, wheezing. CARDIOVASCULAR: Regular rate and rhythm without murmurs rubs or gallops. ABDOMINAL: Soft, nontender, nondistended, normal bowel sounds MUSCULOSKELETAL: Decreased range of motion of left shoulder with anterior tenderness to palpation, no crepitus or deformity NEURO: Alert. Cranial nerves II through XII intact. Grossly intact SKIN: Warm, dry. Normal Color Course Course Emergency Course: 88-year-old female presenting to the emergency department for evaluation after having a ground level fall bed. Patient did strike her head had no loss of consciousness. CT head neck was ordered to evaluate for cervical or intracranial injury. Patient is also having decreased range of motion at the left shoulder Prior to discharge patient mentioned concern about a possible urinary tract infection. UA was concerning for UTI and patient was treated with a dose of Keflex in the emergency department discharged home with Keflex. Patient was encouraged to have close follow-up with primary care physician. Vital Signs Vital signs: Vital Signs Temperature 98.1 F 03/26/23 08:49 Pulse Rate 96 03/26/23 08:49 Respiratory Rate 18 03/26/23 08:49 Blood Pressure 106/70 03/26/23 08:49 Pulse Oximetry 100 03/26/23 08:49 Temperature 98.1 F 03/26/23 08:49 Pulse Rate 74 03/26/23 10:52
--- NOTE | 2023-03-26 09:42 | PC.NURSE ---
Pt to Xray
[2023-03-26] MEDS: ACETAMINOPHEN 325 MG TABLET 650 MG PO (10:01)
[2023-03-26 10:02] VITALS: BP 116/73; O2SAT 97
[2023-03-26 10:03] VITALS: BP 116/73; PULSE 74; RESP 18; O2SAT 97
[2023-03-26 10:52] VITALS: BP 121/87; PULSE 74; RESP 18; O2SAT 99
[2023-03-26 11:12] LABS: Appearance Urine Turbid (Clear); Bacteria Urine 4+ /hpf; Bilirubin Urine Negative (Negative); Blood Urine 2+ (Negative); Color Urine Yellow (Yellow); Glucose Urine UA Negative (Negative); Ketones Urine Negative (Negative); Leukocyte Esterase Ur 3+ LEU/UL (Negative); Need Manual Microscopic Reviewed; Nitrate Urine Positive (Negative); Non Pathogenic Casts 0-2; Protein Urine 2+ mg/dL (Negative); Specific Grav Ur 1.013 (1.001-1.035); Squamous Epithelial Cell Urine Occasional /hpf (Few); WBC Urine >100 /hpf; pH Urine 7.5 (5.0-9.0)
[2023-03-26 11:13] LABS: Add Urine Microscopic? YES
[2023-03-26] MEDS: CEPHALEXIN 500 MG CAPSULE PO (11:36)
== END 2023-03-26 11:38 | disposition home or self-care (01) ==
PROVIDERS: Emergency Provider Emergency Medicine
DX: S49.92XA Unspecified injury of left shoulder and upper arm, initial encounter (principal); S09.90XA Unspecified injury of head, initial encounter; M25.532 Pain in left wrist; N39.0 Urinary tract infection, site not specified; E78.5 Hyperlipidemia, unspecified; I10 Essential (primary) hypertension; E03.9 Hypothyroidism, unspecified; W06.XXXA Fall from bed, initial encounter
CPT/HCPCS: 70450; 72125; 73030; 73110; 81001; 87077; 87086; 87186; 99284; A4565; A9270

== ENCOUNTER 2023-11-17 00:12 | Emergency (ER) | payer MEDICARE, MEDICAID, SELFPAY ==
--- NOTE | ~2023-11-17 | XR_ITS ---
Right Shoulder Technique: AP and scapular Y views were obtained. Clinical History: Pain Findings: No fracture or dislocation is seen. Right shoulder arthroplasty in place. No hardware compl ication is evident. Soft tissues are unremarkable. Impression: No acute abnormality. Right shoulder arthroplasty in place. Reviewed, dictated and finalized at location . Impression: No acute abnormality. Right shoulder arthroplasty in place.
--- NOTE | ~2023-11-17 | XR_ITS ---
Portable chest x-ray Comparison: 02/20/2023 Clinical History: Syncope Findings: Possible mild central congestive change. Cardiomediastinal silhouette is otherwise stable . Bones and soft tissues are unremarkable, aside from right shoulder arthroplasty. Impression: Mild central congestive changes. Reviewed, dictated and finalized at [facility]. Impression: Mild central congestive changes.
--- NOTE | ~2023-11-17 | XR_ITS ---
Right elbow Technique: AP, oblique, and lateral views were obtained. Clinical History: Pain Findings: No acute fracture or dislocation is seen. Osseous alignment is anatomic. Joint spaces are p reserved. There is no displacement of the fat pads, and soft tissues are unremarkable. Impression: Unremarkable radiographs. Reviewed, dictated and finalized at location . Impression: Unremarkable radiographs.
--- NOTE | ~2023-11-17 | CT_ITS ---
CT head without contrast Indication: Head injury COMPARISON: 03/26/2023 Technique: Serial scans were obtained through the brain without the administration of contrast. Dose reduction technique was used on this scan by utilizing automated exposure control and iterative recon struction technique. The dose-length product (DLP) was 681.00 mGy-cm. Findings: There is no evidence of intracranial hemorrhage, mass lesion, or acute infarct. The ventri cles and subarachnoid spaces are dilated, consistent with mild atrophy. Low attenuation regions are seen within the periventricular white matter bilaterally, likely representing changes from chronic mi crovascular ischemic disease. There is no evidence of edema, mass effect or midline shift. The visu alized paranasal sinuses and mastoid air cells are clear. Impression: No intracranial hemorrhage, mass, or acute infarct. Atrophy and chronic white matter changes, as above. Reviewed, dictated and finalized at [facility]. Impression: No intracranial hemorrhage, mass, or acute infarct. Atrophy and chronic white matter changes, as above.
--- NOTE | ~2023-11-17 | CT_ITS ---
Noncontrast CT scan of the cervical spine Technique: Multiple contiguous axial [address] images of the cervical spine were obtained and rec onstructed in 2D sagittal and coronal planes on the acquisition scanner. Dose reduction technique was used on this scan by utilizing automated exposure control, adjustment of the mA and/or kV according to patient size. The dose-length product (DLP) was 223.39 mGy-cm. Clinical History: Pain COMPARISON: 03/26/2023 Findings: No fractures or dislocations. There is moderate degenerative disc disease throughout the c ervical spine. There is advanced facet arthropathy throughout cervical spine. There is advanced degen erative change at the articulation of the odontoid process with the anterior arch of C1. There is mil d right neural foraminal narrowing at C2-C3. There is right neural foraminal narrowing at C3-C4. Ther e is right neural foraminal narrowing at C4-C5. There is bilateral neural foraminal narrowing, right worse than left, at C5-C6 and C6-C7. No prevertebral soft tissue swelling. Impression: No fracture or subluxation of the cervical spine. Degenerative change, as above. Reviewed, dictated and finalized at location . Impression: No fracture or subluxation of the cervical spine. Degenerative change, as above.
[2023-11-17 00:13] VITALS: BP 104/63; PULSE 69; RESP 14; TEMP 36.7; O2SAT 97
--- NOTE | 2023-11-17 00:39 | ECG_ITS ---
Test Date: 2023-11-17 01:26:18 Measurements Intervals [place] Rate: 60 P: -21 VT: 116 QRS: 10 QRSD: 93 T: 92 QT: 443 QTc: 443 Interpretive Statements SINUS RHYTHM WITH SHORT VT INTERVAL CONSIDER INFERIOR INFARCT, AGE INDETERMINATE ANTEROSEPTAL INFARCT, AGE INDETERMINATE BORDERLINE ST-T WAVE ABNORMALITY- ANTEROLAT/HIGH LAT LEADS ABNORMAL ECG No previous ECG available for comparison Electronically Signed On 11-17-2023 06:26:24 CDT by Zach Cannon D.O.
[2023-11-17] MEDS: TETANUS,DIPHTHERIA,AC PERTUSSIS ADULT (0.5 ML) BOOSTRIX IM (01:41)
[2023-11-17 01:53] LABS: Basophils Absolute Auto 0.1 K/mm3 (0.0-0.1); Eosinophils Absolute Auto 0.5 K/mm3 (0-0.3); Eosinophils Percent Auto 8.7 % (0-4.4); Hematocrit 38.2 % (37.0-47.0); Hemoglobin 12.5 g/dL (12.0-15.0); Immature Granulocyte Absolute 0.02 K/mm3 (0.00-0.031); Immature Granulocyte Percent A 0.3 % (0-0.5); Lymphocytes Percent Auto 38.7 % (18.3-44.2); Mean Corpuscular HGB Conc 32.7 g/dl (32-36); Mean Corpuscular Hemoglobin 32.2 pg (26-34); Mean Corpuscular Volume 98.5 fl (80-100); Mean Platelet Volume 10.4 fl (7.4-10.4); Monocytes Absolute Auto 0.6 K/mm3 (0.1-0.6); Monocytes Percent Auto 10.6 % (2.6-8.5); Neutrophils Absolute Auto 2.4 K/mm3 (1.3-6.7); Neutrophils Percent Auto 40.7 % (45.5-73.1); Platelet Count Result 187 k/mm3 (150-375); Red Blood Count 3.88 M/mm3 (4.2-5.4); Red Cell Distribution Width 13.2 % (11.5-14.5)
[2023-11-17 01:54] VITALS: BP 136/72; PULSE 74; RESP 16; O2SAT 100
[2023-11-17 02:03] LABS: Alanine Aminotransferase 14 U/L (6-35); Albumin Level 3.8 g/dL (3.5-5.1); Alkaline Phosphatase 63 U/L (38-126); Anion Gap 11 mmol/L (4-12); Aspartate Amino Transferase 27 U/L (14-36); Bilirubin,Total 0.4 mg/dL (0.2-1.3); Blood Urea Nitrogen 16 mg/dL (7-17); Calcium 9.1 mg/dL (8.4-10.2); Carbon Dioxide 28 mmol/L (22-30); Chloride 100 mmol/L (98-107); Estimated CRCL calculation 42 ml/min; Estimated Glomerular Filt Rate > 60; Glucose 105 mg/dL (65-110); Magnesium 1.8 mg/dL (1.6-2.3); Potassium 3.5 mmol/L (3.4-5.0); Sodium 139 mmol/L (137-145)
[2023-11-17 02:05] LABS: Lactic Acid Reflex 1.6 mmol/L (0.7-2.0)
[2023-11-17 02:14] LABS: Troponin I < 0.012 ng/mL (0.000-0.034)
--- NOTE | 2023-11-17 02:25 | ED.GENADULT ---
HPI - General Adult General Chief complaint: Fall Stated complaint: Fall, hit head Time Seen by Provider: 11/17/23 00:34 History of Present Illness HPI narrative: Patient is a 88-year-old female who presents emergency department with chief complaint of fall. The patient reports she was on the toilet and got up she then reports that she fell striking her right forehead reports that she also struck her right arm and shoulder the patient reports a prior shoulder replacement reports that she does not think she lost consciousness but is unsure Related Data Home Medications Medication Instructions Recorded Confirmed amlodipine 5 mg tablet 5 mg PO DAILY 01/06/19 01/12/19 atorvastatin 20 mg tablet 20 mg PO DAILY 01/06/19 01/06/19 biotin 1,000 mcg chewable tablet 1,000 mcg PO DAILY 01/06/19 01/06/19 clonazepam 0.5 mg tablet 0.5 mg PO BID 01/06/19 01/12/19 duloxetine 60 mg capsule,delayed 60 mg PO BID 01/06/19 01/06/19 release hydrochlorothiazide 12.5 mg capsule 12.5 mg PO DAILY 01/06/19 01/06/19 levothyroxine 50 mcg tablet 50 mcg PO DAILY 01/06/19 01/06/19 (Synthroid) potassium chloride 10 mEq 10 meq PO DAILY 01/06/19 01/06/19 tablet,extended release Allergies Allergy/AdvReac Type Severity Reaction Status Date / Time ciprofloxacin Allergy Intermediate Other Verified 11/17/23 00:21 valsartan Allergy Unknown Other Verified 11/17/23 00:21 nitrofurantoin AdvReac Mild Nausea,Vomiting, Verified 11/17/23 00:21 Diarrhea sulfamethoxazole AdvReac Unknown UPSET Verified 11/17/23 00:21 STOMACH trimethoprim AdvReac Unknown UPSET Verified 11/17/23 00:21 STOMACH Review of Systems Review of Systems: A 10 system review of systems was completed on the patient and is negative except for what is stated in the HPI. Nursing and ancillary documentation was reviewed. [facility] Past Medical History Medical History Degenerative disc disease Hyperlipidemia Hypertension Hypothyroid Migraine Spinal stenosis Surgical History Surgical History History of hysterectomy Social History Social History Smoking status: Never smoker Gender identity (if verbalized by the patient): Female Exam Narrative: GENERAL: Well-appearing, well-nourished, and in no acute distress. HEAD: Normocephalic, abrasion present to the right forehead. EYES: PERRLA and EOMI. ENT: Nares clear, no rhinorrhea or epistaxis. Mucous membranes moist. NECK: Supple. CHEST: Clear to auscultation. No respiratory distress. HEART: Regular rate and rhythm. No murmur heard. Normal peripheral pulses. ABDOMEN: Soft, nontender, nondistended tenderness to palpation in the right shoulder and right elbow small skin tear present in the right upper extremity, normal active bowel sounds. EXTREMITIES: Normal range of motion. No edema. SKIN: Warm, dry, no rash. NEURO: No focal deficits. Alert and oriented x3. PSYCH: Normal mood and affect. Course Vital Signs Vital signs: Vital Signs Temperature 36.7 C 11/17/23 00:13 Pulse Rate 69 11/17/23 00:13 Respiratory Rate 14 11/17/23 00:13 Blood Pressure 104/63 11/17/23 00:13 Pulse Oximetry 97 11/17/23 00:13 Oxygen Delivery Room Air 11/17/23 00:13 Temperature 36.7 C 11/17/23 00:13 Pulse Rate 74 11/17/23 01:54 Respiratory Rate 16 11/17/23 01:54 Blood Pressure 136/72 11/17/23 01:54 Pulse Oximetry 100 11/17/23 01:54 Oxygen Delivery Room Air 11/17/23 00:13 Procedures Laceration Laceration 1: Date: 11/17/23 Time: 03:30 Site: face Side (If applicable): right Size (cm): 1 Description: linear Depth: simple, single layer Local Anesthetic: none Pre-repair: wound explored and irrigated ====== Skin Level ====== Skin la
[2023-11-17 02:26] LABS: Add Urine Microscopic? YES; Appearance Urine Clear (Clear); Bacteria Urine None Seen /hpf; Bilirubin Urine Negative (Negative); Blood Urine Negative (Negative); Color Urine Yellow (Yellow); Glucose Urine UA Negative (Negative); Ketones Urine Negative (Negative); Leukocyte Esterase Ur 2+ LEU/UL (Negative); Need Manual Microscopic Reviewed; Nitrate Urine Negative (Negative); Non Pathogenic Casts 0-2; Protein Urine Negative (Negative); RBC Urine 0-2 /hpf (0-2); Specific Grav Ur 1.007 (1.001-1.035); Squamous Epithelial Cell Urine None Seen /hpf (Few); Urobilinogen Urine 0.2 mg/dL (<2.0); WBC Urine 0-5 /hpf (0-3); pH Urine 6.5 (5.0-9.0)
[2023-11-17] MEDS: HYDROcodone/acetaminophen (*CRX) 5-325 MG TABLET 1 TAB PO (02:39)
== END 2023-11-17 04:42 ==
PROVIDERS: Emergency Provider Emergency Medicine
DX: S01.81XA Laceration without foreign body of other part of head, initial encounter (principal); S51.011A Laceration without foreign body of right elbow, initial encounter; R55 Syncope and collapse; Z23 Encounter for immunization; I10 Essential (primary) hypertension; E78.5 Hyperlipidemia, unspecified; E03.9 Hypothyroidism, unspecified; Z90.710 Acquired absence of both cervix and uterus; Z79.899 Other long term (current) drug therapy; Z96.611 Presence of right artificial shoulder joint; R94.31 Abnormal electrocardiogram [ECG] [EKG]; W18.39XA Other fall on same level, initial encounter
CPT/HCPCS: 12011; 36415; 70450; 71045; 72125; 73030; 73080; 80053; 81001; 83605; 83735; 84484; 85025; 87086; 90471; 90715; 93005; 99284; A9270

== ENCOUNTER 2024-08-03 11:23 | Emergency (ER) | payer MEDICARE, MEDICAID, SELFPAY ==
--- OUTSIDE RECORDS SUMMARY | 2024-08-03 11:32 | XMS_ITS | Encounter Summary ---
Author Organization [facility] Healthcare Address [address] [place] [address] Care Team Providers Care University Intern Name Role Phone Matt Painting MD Primary Care Provider [phone] Yesi Cook DPT Unavailable Unavailable Vernon Hernandez RN Unavailable Renetta Pearl MA Unavailable Shanna Oakes CONTRACT NEGOTIATOR Primary Care Provider Tracy Hernández CONTRACT NEGOTIATOR Primary Care Provider [phone] Encounter Details Date Type Department Care Team (Late st Contact Info) Description 06/24/2018 Documentation [facility] Case Management [address] [place] [id number] Opal Marsh MSW Social History Tobacco Use Types Packs/Day Years Used Date Smoking Tobacco: Never Smokeless Tobacco: Never Alcohol Use Standard Drinks/Week Comments No 0 (1 standard drink = 0.6 oz pur e alcohol) Comments No Sex and Gender Information Value Date Recorded Sex Assigned at Not on file Legal Sex Female 11:38 PM OPERATIONS AND INTELLIGENCE ASSISTANT Gender Identity Female 08/02/2019 9:59 AM CDT Sexual Orientation Straight 06/03/2018 6: 51 PM CDT documented as of this encounter Miscellaneous Notes * Plan of Care - Opal Marsh MSW - 06/24/2018 4:17 PM CDT SW called to meet with pt down in the SEC. Pt has surgery scheduled for a LTK on 07/15/[address] Mccauley. Discussed dc planning after surgery. Pt verbalized interest in going to a SNF. SNF list innetwork with pt's insurance provider was provided. Pt encouraged to tour SNFs prior to admission. [facility] Secondary choice is the [facility] in [place]. Pt informed that the referral will be sent upon admission for placement if PT recs SNF. SW will followafter surgery. documented in this encounter Plan of Treatment Not on file documented as of this encounter Visit Diagnoses Not on filedocumented in this encounter Care Teams University Intern Relationship Specialty Start Date End Date Matt Painting MD [address] [facility] [address] [address] PCP - General 05/31/16 12/08/19 Shanna Oakes NP [address] [place] [address] [address] [place] [address] PCP - General Internal Medicine 12/09/19 07/21/24 Tracy Hernández NP [address] [facility] [address] [place] [address] PCP - General Family Medicine 07/22/24 Yesi Cook DPT Physical Therapist Physical Therapy 07/30/17 03/06/20 Vernon Hernandez RN [address] [place], [place] [address]Rafael [address] [address] CJR Outpatient Beauty School Instructor 07/20/18 10/15/18 Renetta Pearl, SONIA [address] [place] [address] ACO Care Program Arranger 07/21/18 07/21/18 documented as of this encounter
--- OUTSIDE RECORDS SUMMARY | 2024-08-03 11:32 | XMS_ITS | Encounter Summary ---
Author Organization [facility] Address [address] [place] [address] Phone Care Team Providers Care Offline Cutter Name Role Phone Matt Painting MD Primary Care Provider [phone] Tyesha Abarca DPT Unavailable Unavailable Yesi Cook DPT Unavailable Unavailable Renetta Pearl MA Unavailable [phone] Vernon Hernandez RN Unavailable [phone] Vernon Hernandez RN Unavailable [phone] Renetta Pearl MA Unavailable [phone] Shanna Oakes SCIENTIFIC SOFTWARE ENGINEER Primary Care Provider [phone] Tracy Hernández SCIENTIFIC SOFTWARE ENGINEER Primary Care Provider [phone] Encounter Details Date Type Department Care Team (Late st Contact Info) Description 04/15/2017 Orders Only [facility] ProviderChente MD [facility] [place] [address] Social History Tobacco Use Types Packs/Day Years Used Date Smoking Tobacco: Never Smokeless Tobacco: Never Alcohol Use Standard Drinks/Week Comments No 0 (1 standard drink = 0.6 oz pur e alcohol) Comments Unknown Sex and Gender Information Value Date Recorded Sex Assigned at Not on file Legal Sex Female 11:38 PM PACKAGING MACHINE SUPPLIES DISTRIBUTOR Gender Identity Female 08/02/2019 9:59 AM CDT Sexual Orientation Straight 06/03/2018 6: 51 PM CDT documented as of this encounter Plan of Treatment Not on file documented as of this encounter Procedures Procedure Name Priority Date/Time Associated Diagnosis Comments DISCHARGE LABORATORY CUMULATIVE REPORT 04/15/2017 12:00 AM PACKAGING MACHINE SUPPLIES DISTRIBUTOR documented in this encounter Results * DISCHARGE LABORATORY CUMULATIVE REPORT (04/15/2017 12:00 AM PACKAGING MACHINE SUPPLIES DISTRIBUTOR) Narrative 04/15/2017 12:00 AM PACKAGING MACHINE SUPPLIES DISTRIBUTOR Ordered by an unspecified provider. us Historical Provider LAB BLOOD ORDERABLES Arline l Result documented in this encounter Visit Diagnoses Not on filedocumented in this encounter Care Teams Offline Cutter Relationship Specialty Start Date End Date Matt Painting MD [address] [facility] [address] [place] [address] PCP - General 05/31/16 12/08/19 Shanna Oakes NP [address] [place] [address] [address] [place] [address] PCP - General Internal Medicine 12/09/19 07/21/24 Tracy Hernández NP [address] [facility] [address] [place] [address] PCP - General Family Medicine 07/22/24 Tyesha Abarca DPT Physical Therapist Physical Therapy 04/30/17 02/08/18 Yesi Cook DPT Physical Therapist Physical Therapy 07/30/17 03/06/20 Renetta Pearl MA [address] [place] [address] [address] [place] [address] ACO Care Felt Hat Pouncing Operator Hand 12/15/17 12/31/17 Vernon Hernandez, OPHELIA [address] [place] [address] [address] [place] [address] Pain Management Physician 01/01/18 02/11/18 Vernon Hernandez RN [address] [facility] [address] [place], [place] [id number] CJR Outpatient House Father 07/20/18 10/15/18 Renetta Pearl MA [address] [facility] [address] [place], [place] [id number] ACO Care Felt Hat Pouncing Operator Hand 07/21/18 07/21/18 documented as of this encounter
--- OUTSIDE RECORDS SUMMARY | 2024-08-03 11:32 | XMS_ITS | Encounter Summary ---
Author Organization [facility] Address [address] [place] [address] Phone Care Team Providers Care Re Dye Hand Name Role Phone Matt Painting MD Primary Care Provider [phone] Tyesha Abarca DPT Unavailable Unavailable Yesi Cook DPT Unavailable Unavailable Renetta Pearl MA Unavailable [phone] Vernon Hernandez RN Unavailable [phone] Vernon Hernandez RN Unavailable [phone] Renetta Pearl MA Unavailable [phone] Shanna Oakes THERMAL CUTTING MACHINE OPERATOR Primary Care Provider [phone] Tracy Hernández THERMAL CUTTING MACHINE OPERATOR Primary Care Provider [phone] Encounter Details Date Type Department Care Team (Late st Contact Info) Description 06/12/2017 Orders Only [facility] ProviderChente MD [facility], [facility] [place] [address] Social History Tobacco Use Types Packs/Day Years Used Date Smoking Tobacco: Never Smokeless Tobacco: Never Alcohol Use Standard Drinks/Week Comments No 0 (1 standard drink = 0.6 oz pur e alcohol) Comments Unknown Sex and Gender Information Value Date Recorded Sex Assigned at Not on file Legal Sex Female 11:38 PM CANCER PROGRAM COORDINATOR Gender Identity Female 08/02/2019 9:59 AM CDT Sexual Orientation Straight 06/03/2018 6: 51 PM CDT documented as of this encounter Plan of Treatment Not on file documented as of this encounter Procedures Procedure Name Priority Date/Time Associated Diagnosis Comments DISCHARGE LABORATORY CUMULATIVE REPORT 06/12/2017 12:00 AM CDT documented in this encounter Results * DISCHARGE LABORATORY CUMULATIVE REPORT (06/12/2017 12:00 AM CDT) Narrative 06/12/2017 12:00 AM CDT Ordered by an unspecified provider. us Historical Provider LAB BLOOD ORDERABLES Arline l Result documented in this encounter Visit Diagnoses Not on filedocumented in this encounter Care Teams Re Dye Hand Relationship Specialty Start Date End Date Matt Painting MD [address] [facility] [address] [place] [address] PCP - General 05/31/16 12/08/19 Shanna Oakes NP [address] [facility] [address] [place] [address] PCP - General Internal Medicine 12/09/19 07/21/24 Tracy Hernández NP [address] [facility] [address] [place] [address] PCP - General Family Medicine 07/22/24 Tyesha Abarca DPT Physical Therapist Physical Therapy 04/30/17 02/08/18 Yesi Cook DPT Physical Therapist Physical Therapy 07/30/17 03/06/20 Renetta Pearl MA [address] [facility] [address] [place] [address] ACO Care Sprinkler Fitter Helper 12/15/17 12/31/17 Vernon Hernandez, OPHELIA [address] [facility] [address] [place] [address] Game Farm Helper 01/01/18 02/11/18 Vernon Hernandez RN [address] [facility] [address] [place] [address] CJR Outpatient Air Vice Marshal 07/20/18 10/15/18 Renetta Pearl MA [address] [facility] [address] [place], [place] [id number] ACO Care Sprinkler Fitter Helper 07/21/18 07/21/18 documented as of this encounter
--- OUTSIDE RECORDS SUMMARY | 2024-08-03 11:32 | XMS_ITS | Encounter Summary ---
Author Organization [facility] Healthcare Address [address] [place] [address] Care Team Providers Care Nutritionists Name Role Phone Tracy Hernández NP Primary Care Provider [phone] Reason for Visit * Reason Onset Date Comments Medical Question/Miscellaneous 07/22/2024 Encounter Details Date Type Department Care Team (Late st Contact Info) Description 07/22/[address] [facility] [address] [facility] [address] [place] [address] Shanna Oakes NP [address] [facility] [address] [address] Medical Question/Miscellaneous Social History Tobacco Use Types Packs/Day Years Used Date Smoking Tobacco: Never Smokeless Tobacco: Never Alcohol Use Standard Drinks/Week Comments No 0 (1 standard drink = 0.6 oz pur e alcohol) PHQ-2 Answer Date Recorded PHQ-2 Total Score (If total score is 3 or more points, staff should administer the PHQ-9) 2 07/22/2024 Comments No Sex and Gender Information Value Date Recorded Sex Assigned at Not on file Legal Sex Female 11:38 PM SHIPYARD LABORER Gender Identity Female 08/02/2019 9:59 AM CDT Sexual Orientation Straight 06/03/2018 6: 51 PM CDT documented as of this encounter Miscellaneous Notes * Telephone Encounter - Shanna Oakes NP - 07/22/2024 1:25 PM CDT Noted. * Telephone Encounter - Betty Thurston - 07/22/2024 10:37 AM CDT Medical Question/Miscellaneous. Caller???s Concern: Patient is calling to give a message to COFFEE WEIGHER Shanna Oakes. She stated I cannot get current dependable transportation to [place]. I have switched to Dr. Hernández through [facility] in [place]. I am sorry I had to change. I love you. Thank you. Does message need to be routed? Yes-Action Needed documented in this encounter Plan of Treatment Not on file documented as of this encounter Visit Diagnoses Not on filedocumented in this encounter Care Teams Nutritionists Relationship Specialty Start Date End Date Tracy Hernández NP [address] [address] PCP - General Family Medicine 07/22/24 documented as of this encounter
--- OUTSIDE RECORDS SUMMARY | 2024-08-03 11:32 | XMS_ITS | Encounter Summary ---
Author Organization [facility] Healthcare Address [address] [place] [address] Care Team Providers Care Quality Control Checker Name Role Phone Yesi Cook DPT Unavailable Unavailable Shanna Oakes NP Primary Care Provider [phone] Tracy Hernández HULL AND DECK REMOVER Primary Care Provider [phone] Encounter Details Date Type Department Care Team (Late st Contact Info) Description 12/28/2019 Telephone [facility] [address] [place] [address] Melanie Del Rio, Social History Tobacco Use Types Packs/Day Years Used Date Smoking Tobacco: Never Smokeless Tobacco: Never Alcohol Use Standard Drinks/Week Comments No 0 (1 standard drink = 0.6 oz pur e alcohol) PHQ-2 Answer Date Recorded PHQ-2 Total Score (If total score is 3 or more points, staff should administer the PHQ-9) 2 12/20/2019 Comments No Sex and Gender Information Value Date Recorded Sex Assigned at Not on file Legal Sex Female 11:38 PM METAL TRIMMER Gender Identity Female 08/02/2019 9:59 AM CDT Sexual Orientation Straight 06/03/2018 6: 51 PM CDT documented as of this encounter Plan of Treatment Not on file documented as of this encounter Visit Diagnoses Not on filedocumented in this encounter Care Teams Quality Control Checker Relationship Specialty Start Date End Date Shanna Oakes NP PCP - General Internal Medicine 12/09/19 07/21/24 Tracy Hernández NP [address] [address] PCP - General Family Medicine 07/22/24 Yesi Cook, VENITAT Physical Therapist Physical Therapy 07/30/17 03/06/20 documented as of this encounter
--- NOTE | 2024-08-03 11:33 | PC.NURSE ---
pt ambulated to bathroom to provide a urine sample at this time, declined a straight cath.
--- OUTSIDE RECORDS SUMMARY | 2024-08-03 11:33 | XMS_ITS | Encounter Summary ---
Author Organization [facility] Healthcare Address [address] [place] [address] Care Team Providers Care Experimental Outboard Motors Mechanic Name Role Phone Shanna Oakes NP Primary Care Provider [phone] Tracy Hernández PROP WORKER Primary Care Provider [phone] Encounter Details Date Type Department Care Team (Late st Contact Info) Description 12/20/2020 Telephone [facility] - Interventional Radiology [address] [place] [address] Juanis Mejia RN Social History Tobacco Use Types Packs/Day Years Used Date Smoking Tobacco: Never Smokeless Tobacco: Never Alcohol Use Standard Drinks/Week Comments No 0 (1 standard drink = 0.6 oz pur e alcohol) PHQ-2 Answer Date Recorded PHQ-2 Total Score (If total score is 3 or more points, staff should administer the PHQ-9) 2 05/23/2020 Comments No Sex and Gender Information Value Date Recorded Sex Assigned at Not on file Legal Sex Female 11:38 PM FLIGHT TOWER DISPATCHER Gender Identity Female 08/02/2019 9:59 AM CDT Sexual Orientation Straight 06/03/2018 6: 51 PM CDT documented as of this encounter Plan of Treatment Not on file documented as of this encounter Visit Diagnoses Not on filedocumented in this encounter Care Teams Experimental Outboard Motors Mechanic Relationship Specialty Start Date End Date Shanna Oakes NP PCP - General Internal Medicine 12/09/19 07/21/24 Tracy Hernández NP [address] [address] PCP - General Family Medicine 07/22/24 documented as of this encounter
--- OUTSIDE RECORDS SUMMARY | 2024-08-03 11:33 | XMS_ITS | Encounter Summary ---
Author Organization [facility] Healthcare Address [address] [place] [address] Care Team Providers Care Export Clerk Name Role Phone Tarcy Hernández NP Primary Care Provider [phone] Reason for Visit * Reason Onset Date Comments Dysuria 08/02/2024 IV Antibiotics 08/02/2024 Encounter Details Date Type Department Care Team (Late st Contact Info) Description 08/02/2024 Nurse Triage [facility] Medical Group Primary Care at [address] [address] Tracy Hernández NP [address] [place] [address] [address] [place] [address] Social History Tobacco Use Types Packs/Day Years [...] on file Legal Sex Female 11:38 PM GEOGRAPHIC INFORMATION SYSTEMS ENGINEER Gender Identity Female 08/02/2019 9:59 AM CDT Sexual Orientation Straight 06/03/2018 6: 51 PM CDT documented as of this encounter Miscellaneous Notes * Telephone Encounter - Yasmine Bolden - 08/03/2024 9:14 AM CDT Call Back Caller???s Concern: Yeimy calling back stating she got disconnected from practice. Warm transferred to practice. Does message need to be routed? No Reason for Warm Transfer: Provider to Provider Calls Practice Accepted the Warm Transfer? Yes Additional Comments If YES above, and no barriers. * Telephone Encounter - Mulu Sanford - 08/03/2024 9:02 AM CDT Medical Question/Miscellaneous Caller???s Concern: Yeimy, staffing operations manager with the [facility], calling in to get further clarification on instructions for patient to go to the ED. Warm transferred. Does message need to be routed? No Reason for Warm Transfer: Symptoms: Patient has Red flag symptoms, calender tender evaluated patient and directed patient to call 911 or go to ED. Patient agreed to do so and called back later indicating they did not follow disposition. OR Patient agrees to go to ED, but is calling back with clarifying questions. Practice Accepted the Warm Transfer? Yes Additional Comments If YES above, and no barriers. * Telephone Encounter - Mulu Alonso MA - 08/03/2024 8:40 AM CDT Called patient and advised she go to the ER. Verbalized understanding. * Telephone Encounter - Tracy Hernández NP - 08/03/2024 8:17 AM CDT She needs to go to the ER * Telephone Encounter - Odette Zimmer RN - 08/02/2024 11:04 AM CDT Reason for Conversation Dysuria and IV Antibiotics Background Latasha Menard calling about ongoing dysuria, frequency and flank pain after completing antibiotic Friday. OV 07/22. Dysuria is still present but is better. Pt however is now having left flank pain 5/10 and is feeling more fatigued and overall weak. Thinks she may be running a low grade fever Pt is getting around with her walker. Pt was out at the store this morning and going out for lunch. Pt states she has been having episodes where she feels she may pass out, last episode this morning. Trying to drink Able to get around with her walker. Sometimes when she is up feels like she is going to pass out, last episode this morning while she was getting dressed. Trying to drink enough water. No office appts available today. Tasking update to the office for advice and follow up with pt about next steps. Home care reviewed. Advised pt to call back if symptoms worsen or with any other concerns/questions. Pt verbalized understanding. Disposition Go to Office Now Reason for Disposition Side (flank) or lower back pain and new-onset since starting antibiotics No Initial Assessment on file. No Additional Information on file. Protocols Used Urinary Tract Infection on Antibiotic Follow-up Call - [id number] * Telephone Encounter - Odette Zimmer RN - 08/02/2024 10:45 AM CDT Regarding: UTI symptoms -Still having frequency and discomfort. Pain in kidney area ----- Message from Lilly Zamudio sent at 08/02/2024 9:33 AM CDT ----- Symptom Based Call Chief Complaint(s): UTI symptoms did not go away after treatment. Still having frequency and discomfort. Pain in kidney area Duration: Over ten days What type of symptom(s) is the patient experiencing? Non-Emergent. Is this a new or reoccurring symptom(s)? Reoccurring What have you tried to help your symptom(s)? Cefdinir Why was appointment not scheduled? Appointment availability did not meet the patient's need. Additional Comments: The patient was seen on 07.22.24 for a UTI and took Cefdinir. Symptoms never went away. She was hoping to be seen but there are no openings this week. Does message need to be routed? Yes-Action Needed documented in this encounter Plan of Treatment Not on file documented as of this encounter Visit Diagnoses Not on filedocumented in this encounter Care Teams Export Clerk Relationship Specialty Start Date End Date Tracy Hernández NP [address] [address] PCP - General Family Medicine 07/22/24 documented as of this encounter
--- OUTSIDE RECORDS SUMMARY | 2024-08-03 11:33 | XMS_ITS | Encounter Summary ---
Author Organization [facility] Healthcare Address [address] [place] [address] Care Team Providers Care Supervisor Packing Room Name Role Phone Matt Painting MD Primary Care Provider [phone] Tyesha Abarca DPT Unavailable Unavailable Yesi Cook DPT Unavailable Unavailable Renetta Pearl MA Unavailable [phone] Vernon Hernandez RN Unavailable [phone] Vernon Hernandez RN Unavailable [phone] Renetta Pearl MA Unavailable [phone] Shanna Oakes DECONTAMINATION TECHNICIAN Primary Care Provider [phone] Tracy Hernández DECONTAMINATION TECHNICIAN Primary Care Provider [phone] Encounter Details Date Type Department Care Team (Late st Contact Info) Description 11/28/2017 Documentation [facility] Case Management [address] [place] [address] Opal Marsh MSW Social History Tobacco Use Types Packs/Day Years Used Date Smoking Tobacco: Never Smokeless Tobacco: Never Alcohol Use Standard Drinks/Week Comments No 0 (1 standard drink = 0.6 oz pur e alcohol) Comments Unknown Sex and Gender Information Value Date Recorded Sex Assigned at Not on file Legal Sex Female 11:38 PM WOUND SPECIALIST Gender Identity Female 08/02/2019 9:59 AM CDT Sexual Orientation Straight 06/03/2018 6: 51 PM CDT documented as of this encounter Miscellaneous Notes * Plan of Care - Opal Marsh MSW - 11/28/2017 4:04 PM CDT SW called to meet with pt down in the SEC today. Pt has surgery scheduled for a Right Shoulder Reveral on 12/10/[address] Murray. Discussed dc planning after surgery. Pt verbalized interest in goingto a SNF. SNF list in network with pt's insurance provider was provided. Pt encouraged to tour SNFsprior to admission. Pt is not sure where she wants to go for therapy, but will call SW with a SNF ch oice. Pt informed that the referral will be sent upon admission for placement if PT recs SNF. SW will follow after surgery. documented in this encounter Plan of Treatment Not on file documented as of this encounter Visit Diagnoses Not on filedocumented in this encounter Care Teams Supervisor Packing Room Relationship Specialty Start Date End Date Matt Painting MD [address] [facility] [address] [address] PCP - General 05/31/16 12/08/19 Shanna Oakes NP [address] [place] [address] [address] [place] [address] PCP - General Internal Medicine 12/09/19 07/21/24 Tracy Hernández NP [address] [facility] [address] [place] [address] PCP - General Family Medicine 07/22/24 Tyesha Abarca, KIMBERLY Physical Therapist Physical Therapy 04/30/17 02/08/18 Joyce, Yesi E., DPT Physical Therapist Physical Therapy 07/30/17 03/06/20 Renetta Pearl MA [address] [facility] [address] [place] [address] ACO Care Lead Database Administrator 12/15/17 12/31/17 Vernon Hernandez RN [address] [place] [address] [address] [place], [place] [id number] Skating Carhop 01/01/18 02/11/18 Vernon Hernandez RN [address] [place] [address] [address] [place], [place] [id number] CJR Outpatient Net Software Architect 07/20/18 10/15/18 Renetta Pearl MA [address] [facility] [address] [place] [address] ACO Care Lead Database Administrator 07/21/18 07/21/18 documented as of this encounter
--- OUTSIDE RECORDS SUMMARY | 2024-08-03 11:33 | XMS_ITS | Clinical Summary ---
Author Organization [facility] Address [address] [place] [address] Care Team Providers Care Water Resource Project Manager Name Role Phone Tracy Hernández NP Primary Care Provider [phone] Allergies Active Allergy Reactions Criticality Noted Date Comments Ciprofloxacin Other (See comments) Low Reaction: LIVER CONTRACTIONS Nitrofurantoin Nausea only Low Nitrofurantoin Monohyd/M-Cryst Other (See comments) Low 11/20/2016 Affects liver per pt Sulfa (Sulfonamide Antibiotics) Other (See comments) Low Reaction: GI macrobid, nitrofurantin, Nausea and tears up my Liver Sulfamethoxazole-Trimet hoprim Valsartan Angioedema High 08/08/2017 Medications aspirin 81 mg enteric coated tabletIndicati ons:Atheroscle rosis of both carotid arteries Take 1 tablet (81 mg total) by mouth daily 30 tablet 11 0 Active mometasone (ELOCON) 0.1 % solution 3 drops to affected ear canal daily for 1 week, then use M-W-F (every other day) 30 mL 1 1 Active triamcinolone (KENALOG) 0.1 % cream APPLY TOPICALLY TO AREAS OF ITCHING WITHOUT RASH TWICE DAILY FOR UP TO 4 WEEKS, THEN TAKE A 2 WEEK BREAK. DO NOT USE ON FACE 3 Active clobetasoL (TEMOVATE) 0.05 % external solution APPLY TO SCALP AND EARS TWICE DAILY NEEDED FOR FLAKING,SCALI NG,OR ITCHING. 3 Active loratadine (Allergy Relief, loratadine,) 10 mg tablet TAKE 1 TABLET BY MOUTH ONCE DAILY NEEDED FOR ALLERGIES 90 tablet 3 4 Active gabapentin (NEURONTIN) 300 mg capsule Take 1 capsule by mouth once daily 90 capsule [address] (CYMBALTA) 60 mg capsule Take 2 capsules by mouth once daily 180 capsule 1 4 Active amLODIPine (NORVASC) 5 mg tablet Take 1 tablet by mouth once daily 90 tablet 1 4 Active atorvastatin (LIPITOR) 40 mg tablet Take 1 tablet by mouth once daily 90 tablet 4 Active omeprazole (PriLOSEC) 20 mg capsule Take 1 capsule by mouth once daily 90 capsule 4 Active potassium chloride ER 20 mEq CR tablet Take 1 tablet by mouth once daily 90 tablet 4 Active hydroCHLOROthi azide (MICROZIDE) 12.5 mg capsule Take 1 capsule by mouth once daily 90 capsule 1 4 Active busPIRone (BUSPAR) 5 mg tabletIndicati ons:Generalize d Anxiety Disorder Take 1 tablet (5 mg total) by mouth 2 (two) times a day 180 tablet 3 5 Active zolpidem CR (AMBIEN CR) 6.25 mg CR tablet TAKE 1 TABLET BY MOUTH AT BEDTIME NEEDED FOR SLEEP 30 tablet 2 5 Active LORazepam (ATIVAN) 0.5 mg tablet TAKE 1 TABLET BY MOUTH TWICE DAILY NEEDED FOR ANXIETY 60 tablet 1 5 Active traMADoL (ULTRAM) 50 mg tablet Take 1 tablet (50 mg total) by mouth every 6 (six) hours as needed for pain 60 tablet 5 Active levothyroxine (SYNTHROID) 100 mcg tablet Take 1 tablet (100 mcg total) by mouth lathe spotter before breakfast 90 tablet 5 Active acetaminophen- codeine (TYLENOL with CODEINE #3) 300-30 mg per tablet Take by mouth every 12 (twelve) hours as needed 3 07/23/19 25 Discontinue d(Therapy completed) methenamine (HIPREX) 1 gram tablet 4 07/23/19 25 Discontinue d(Patient Reported) levothyroxine (SYNTHROID) 75 mcg tablet TAKE 1 TABLET BY MOUTH ONCE DAILY IN THE MORNING BEFORE BREAKFAST 90 tablet 4 07/24/19 25 Discontinue d(Reorder) cefdinir (OMNICEF) 300 mg capsuleIndicat ions:Urinary Tract/Genitour inary Infection Take 1 capsule (300 mg total) by mouth 2 (two) times a day for 5 days 10 capsule 5 07/29/19 25 Active Problems Problem Noted Date Diagnosed Date 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 Assessment & Plan (03/30/2024 12:53 PM [employer]): Stable, continue Zolpidem Assessment & Plan (12/29/2023 1:26 PM CDT): Worse. Will switch to an ER Zolpidem. Dermatochalasis of both upper eyelids 10/15/2022 Assessment & Plan (10/16/2023 4:47 PM CDT): Pt not bothered, monitor Assessment & Plan (10/15/2022 12:55 PM CDT): Not v/s, monitor Atherosclerosis of aorta 05/09/2022 Overview (05/09/2022): 05/09/21- xray Assessment & Plan (03/30/2024 12:52 PM [employer]): Stable, continue aspirin and Atorvastatin Assessment & Plan (09/16/2023 10:46 AM CDT): Stable, continue Atorvastatin and aspirin. Assessment & Plan (01/13/2023 10:31 AM [employer]): Stable, continue aspirin and Atorvastatin Encounter for Medicare annual wellness exam 05/02 Assessment & Plan (03/30/2024 12:49 PM [employer]): Please see below for a list of your medical conditions and recommendations. Assessment & Plan (01/13/2023 10:30 AM [employer]): Please see below for a list of your medical conditions and recommendations. Assessment & Plan (01/03/2022 1:23 PM CDT): Please see below for a list of your medical conditions and recommendations. Assessment & Plan (05/23/2020 10:33 AM CDT): Please see below for a list of your medical conditions and recommendations. Right shoulder pain 02/29/2020 Atherosclerosis of both carotid arteries 020 Assessment & Plan (03/30/2024 12:53 PM [employer]): Stable, continue aspirin and Atorvastatin Assessment & Plan (09/16/2023 10:47 AM CDT): Stable, continue Atorvastatin and aspirin Assessment & Plan (01/13/2023 10:32 AM [employer]): Stable, continue aspirin and Atorvastatin Assessment & Plan (01/03/2022 1:32 PM CDT): Stable, continue aspirin and Atorvastatin. Assessment & Plan (05/03/2021 11:10 AM [employer]): Stable, continue Atorvastatin and aspirin Assessment & Plan (11/08/2020 5:25 PM CDT): Stable, continue Atorvastatin and aspirin Assessment & Plan (05/22/2020 8:02 PM CDT): Stable, continue aspirin and Atorvastatin Assessment & Plan (12/20/2019 9:49 AM CDT): Continue the statin and add aspirin 81mg daily Urinary frequency 04/15/2017 Assessment & Plan (09/10/2022 3:17 PM CDT): Is considering Botox treatments Assessment & Plan (06/12/2017 11:24 AM CDT): Will check UA theresa UTI Assessment & Plan (04/15/2017 12:43 PM [employer]): Having increased urinary frequency but no pain, feels similar to UTIs in the past. UA today with just trace blood, negative for leuks and nitrites Advised to keep hydrated and will send UA for culture BMI 28.0-28.9,adult 04/15/2017 Assessment & Plan (10/08/2017 11:47 AM CDT): Try to cut back on calories. Most people should eat between 8724-1768 calories to lose weight. Decrease your carbohydrate intake to less than 150 grams per day if possible and increase protein to help with hunger. Increase activity to 30 min 4-5 days a week and add strength training 2 times weekly. If you need further help with weight loss please let me know. I would be happy to help. Assessment & Plan (04/15/2017 11:14 AM [employer]): BMI Follow-up includes: nutrition counseling and exercise counseling. Chronic bilateral low back pain with sciatica Assessment & Plan (09/16/2023 10:55 AM CDT): Chronic and unchanged. Seeing Addie Shah NP ortho. Assessment & Plan (09/10/2022 3:20 PM CDT): Chronic and unchanged. Continue Tramadol and is using to be able to participate in her ADLs. Assessment & Plan (01/03/2022 1:31 PM CDT): Chronic and unchanged. Continue injections with pain management. Assessment & Plan (05/03/2021 11:10 AM [employer]): Stable, continue Gabapentin and Duloxetine Assessment & Plan (12/19/2019 7:35 PM CDT): Stable, continue duloxetine Assessment & Plan (06/14/2019 8:10 AM CDT): Requires chronic duloxetine and gabapentin therapy. Does see pain management at times. Assessment & Plan (04/15/2017 12:40 PM [employer]): Improved and using lidocaine patches which help. Suspect this is more from bulging disc than it is from UTI and patient agrees. Major depression single episode, in partial amanda ssion 08/28/2016 Assessment & Plan (03/30/2024 12:53 PM [employer]): Stable, continue Duloxetine Assessment & Plan (12/29/2023 1:26 PM CDT): Stable, continue Duloxetine Assessment & Plan (01/13/2023 10:33 AM [employer]): Stable, continue Duloxetine Assessment & Plan (09/10/2022 3:17 PM CDT): Improved. Continue Duloxetine Assessment & Plan (05/03/2022 2:59 PM [employer]): Stable, continue Duloxetine Assessment & Plan (01/03/2022 1:30 PM CDT): Intermittent. Continue Duloxetine. Assessment & Plan (05/03/2021 11:09 AM [employer]): Chronic and unchanged. Continue Duloxetine Assessment & Plan (11/08/2020 5:24 PM CDT): Stable, continue Duloxetine and Gabapentin Assessment & Plan (05/22/2020 8:00 PM CDT): Stable, continue Duloxetine. There's a great resource for anxiety and depression called The Feeling Good Book by Anthony Pereira. Please let us know if you are feeling worse or need any further support for this. Assessment & Plan (12/19/2019 7:35 PM CDT): Stable, continue Duloxetine Assessment & Plan (02/16/2018 1:25 PM [employer]): Doing well with the clonazepam and duloxetine Assessment & Plan (04/15/2017 12:42 PM [employer]): Still teary in the room over the loss of her last year. 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 Ideally, I want it below 130/80. Will continue with the same prescription medications as prescribed. Salt intake needs to be restricted to keep the sodium level at less than 2000 mg a day. Regular exercise is also important and should be at least four days a week. Continue to manage your stress in a healthy way. Assessment & Plan (12/29/2023 1:24 PM CDT): The blood pressure is adequately controlled. Ideally, I want it below 130/80. Will continue with the same prescription medications as prescribed. Salt intake needs to be restricted to keep the sodium level at less than 2000 mg a day. Regular exercise is also important and should be at least four days a week. Continue to manage your stress in a healthy way. Assessment & Plan (09/16/2023 10:45 AM CDT): The blood pressure is adequately controlled. Ideally, I want it below 130/80. Will continue with the same prescription medications as prescribed. Salt intake needs to be restricted to keep the sodium level at less than 2000 mg a day. Regular exercise is also important and should be at least four days a week. Continue to manage your stress in a healthy way. Assessment & Plan (01/13/2023 10:30 AM [employer]): The blood pressure is adequately controlled. Ideally, I want it below 130/80. Will continue with the same prescription medications as prescribed. Salt intake needs to be restricted to keep the sodium level at less than 2000 mg a day. Regular exercise is also important and should be at least four days a week. Continue to manage your stress in a healthy way. Assessment & Plan (05/03/2022 2:57 PM [employer]): The blood pressure is adequately controlled. Ideally, I want it below 130/80. Will continue with the same prescription medications as prescribed. Salt intake needs to be restricted to keep the sodium level at less than 2000 mg a day. Regular exercise is also important and should be at least four days a week. Continue to manage your stress in a healthy way. Assessment & Plan (01/03/2022 1:28 PM CDT): The blood pressure is adequately controlled. Ideally, I want it below 130/80. Will continue with the same medications as prescribed. Salt intake needs to be restricted to keep the sodium level at less than 2000 mg a day. Regular exercise is also important and should be at least four days a week. Continue to manage your stress in a healthy way. Assessment & Plan (05/03/2021 11:08 AM [employer]): The blood pressure is adequately controlled. Ideally, I want it below 130/80. Will continue with the same medications as prescribed. Salt intake needs to be restricted to keep the sodium level at less than 2000 mg a day. Regular exercise is also important and should be at least four days a week. Continue to manage your stress in a healthy way. Assessment & Plan (11/08/2020 5:23 PM CDT): The blood pressure is adequately controlled. Ideally, I want it below 130/80. Will continue with the same medications as prescribed. Salt intake needs to be restricted to keep the sodium level at less than 2000 mg a day. Regular exercise is also important and should be at least four days a week. Continue to manage your stress in a healthy way. Assessment & Plan (05/22/2020 7:59 PM CDT): The blood pressure is adequately controlled. Ideally, I want it below 130/80. Will continue with the same medications as prescribed. Salt intake needs to be restricted to keep the sodium level at less than 2000 mg a day. Regular exercise is also important and should be at least four days a week. Continue to manage your stress in a healthy way. Assessment & Plan (12/19/2019 7:36 PM CDT): The blood pressure is adequately controlled. Ideally, I want it below 130/80. Will continue with the same medications as prescribed. Salt intake needs to be restricted to keep the sodium level at less than 2000 mg a day. Regular exercise is also important and should be at least four days a week. Continue to manage your stress in a healthy way. Assessment & Plan (06/15/2018 1:59 PM CDT): This is stable. Medications reviewed and will continue. Continue with proper diet and exercise as tolerated with follow up as directed. Hypothyroidism 02/03/2012 Overview (06/07/2016): Hypothyroidism Assessment & Plan (03/30/2024 12:50 PM [employer]): Stable, continue levothyroxine Assessment & Plan (12/29/2023 1:24 PM CDT): Stable, continue levothyroxine Assessment & Plan (09/16/2023 10:46 AM CDT): Stable? Will recheck today. Assessment & Plan (01/13/2023 10:31 AM [employer]): Stable, continue levothyroxine. Assessment & Plan (09/10/2022 3:15 PM CDT): Stable? Will recheck today. Assessment & Plan (05/03/2022 2:57 PM [employer]): Stable? Will recheck today. Assessment & Plan (01/03/2022 1:24 PM CDT): Stable, continue levothyroxine Assessment & Plan (05/03/2021 11:08 AM [employer]): Stable? Continue levothyroxine. Assessment & Plan (11/08/2020 5:23 PM CDT): Stable, continue levothyroxine Assessment & Plan (05/22/2020 7:58 PM CDT): Stable? Will recheck today. Chronic pain 02/03/2012 Overview (06/08/2016): Chronic pain Assessment & Plan (09/10/2022 3:16 PM CDT): Chronic and unchanged. Continue Tramadol as needed. Assessment & Plan (06/12/2017 11:27 AM CDT): On 4 per day from 6 per day after shoulder is better and for athritis In low back pain and continue cutting back Hypercholesterolemia 11/29/2010 Assessment & Plan (07/26/2024 9:28 PM CDT): Lipid abnormalities are stable, reviewed previous lipid levels in [facility]. Continue statin therapy. Lipitor (atorvastatin) Order for lipid panel was given today to be obtained. Pt voiced understanding of lab drawn and continuation of current medication regimen. Assessment & Plan (03/30/2024 12:49 PM [employer]): Continue low fat eating- limit fried foods, white starches, sweets and alcohol if applicable. Try to increase your activity and increase fruits and vegetables to 5 servings a day. Continue prescription medication (if applicable) as prescribed. Assessment & Plan (12/29/2023 1:23 PM CDT): Continue low fat eating- limit fried foods, white starches, sweets and alcohol if applicable. Try to increase your activity and increase fruits and vegetables to 5 servings a day. Continue prescription medication (if applicable) as prescribed. Assessment & Plan (09/16/2023 10:45 AM CDT): Continue low fat eating- limit fried foods, white starches, sweets and alcohol if applicable. Try to increase your activity and increase fruits and vegetables to 5 servings a day. Continue prescription medication (if applicable) as prescribed. Assessment & Plan (01/13/2023 10:30 AM [employer]): Continue low fat eating- limit fried foods, white starches, sweets and alcohol if applicable. Try to increase your activity and increase fruits and vegetables to 5 servings a day. Continue prescription medication (if applicable) as prescribed. Assessment & Plan (09/10/2022 3:16 PM CDT): Continue low fat eating- limit fried foods, white starches, sweets and alcohol if applicable. Try to increase your activity and increase fruits and vegetables to 5 servings a day. Continue prescription medication (if applicable) as prescribed. Assessment & Plan (05/03/2022 2:58 PM [employer]): Continue low fat eating- limit fried foods, white starches, sweets and alcohol if applicable. Try to increase your activity and increase fruits and vegetables to 5 servings a day. Continue prescription medication (if applicable) as prescribed. Assessment & Plan (01/03/2022 1:28 PM CDT): Continue low fat eating- limit fried foods, white starches, sweets and alcohol if applicable. Try to increase your activity and increase fruits and vegetables to 5 servings a day. Assessment & Plan (05/03/2021 11:09 AM [employer]): Continue low fat eating- limit fried foods, white starches, sweets and alcohol if applicable. Try to increase your activity and increase fruits and vegetables to 5 servings a day. Assessment & Plan (11/08/2020 5:23 PM CDT): Continue low fat eating- limit fried foods, white starches, sweets and alcohol if applicable. Try to increase your activity and increase fruits and vegetables to 5 servings a day. Assessment & Plan (05/22/2020 7:59 PM CDT): Continue low fat eating- limit fried foods, white starches, sweets and alcohol if applicable. Try to increase your activity and increase fruits and vegetables to 5 servings a day. Assessment & Plan (12/19/2019 7:33 PM CDT): Continue low fat eating- limit fried foods, white starches, sweets and alcohol if applicable. Try to increase your activity and increase fruits and vegetables to 5 servings a day. Diverticulosis Overview (11/28/2017): per imaging 2018 Generalized anxiety disorder with panic attacks Assessment & Plan (03/30/2024 1:37 PM [employer]): Not controlled, continue Lorazepam as needed Assessment & Plan (01/13/2023 10:32 AM [employer]): Stable, continue Duloxetine and Lorazepam as needed. Assessment & Plan (09/10/2022 3:18 PM CDT): Improved. Continue Duloxetine and uses Lorazepam as needed. Try not take this medication daily or manager long term care is at all possible as it can lead to dependence/addiction/tolerance, memory issues and may cause depression fci. Keep this medication out of the reach of other people. Do not drive or drink alcohol with this medication. Assessment & Plan (05/03/2022 3:00 PM [employer]): Chronic and unchanged. Continue Lorazepam as needed. Assessment & Plan (01/03/2022 1:31 PM CDT): Stable, continue Lorazepam as needed Assessment & Plan (11/08/2020 5:25 PM CDT): Stable, continue Clonazepam Assessment & Plan (05/22/2020 8:01 PM CDT): Stable, continue Clonazepam as needed. Do not take this medication daily or manager long term care is at all possible as it can lead to dependence/addiction/tolerance, memory issues and may cause depression manager long term care. Keep this medication out of the reach of other people. Do not drive or drink alcohol with this medication. Assessment & Plan (06/14/2019 8:09 AM CDT): Present requires chronic clonazepam and duloxetine treatment. Assessment & Plan (12/22/2018 1:32 PM CDT): On clonazepam for control and is doing so Assessment & Plan (06/15/2018 2:00 PM CDT): This is stable. Medications reviewed and will continue. Continue with proper diet and exercise as tolerated with follow up as directed. GERD (gastroesophageal reflux disease) Assessment & Plan (03/30/2024 12:53 PM [employer]): Try to eat smaller more frequent meals. Limit fatty foods which can make reflux worse. Try to stay upright after eating for 30-45 minutes. Avoid foods which cause acid (citrus, tomato based, spicy, coffee, alcohol, chocolate). Achieve a healthy weight. Assessment & Plan (12/29/2023 1:25 PM CDT): Try to eat smaller more frequent meals. Limit fatty foods which can make reflux worse. Try to stay upright after eating for 30-45 minutes. Avoid foods which cause acid (citrus, tomato based, spicy, coffee, alcohol, chocolate). Achieve a healthy weight. Assessment & Plan (01/13/2023 10:32 AM [employer]): Try to eat smaller more frequent meals. Limit fatty foods which can make reflux worse. Try to stay upright after eating for 30-45 minutes. Avoid foods which cause acid (citrus, tomato based, spicy, coffee, alcohol, chocolate). Achieve a healthy weight. Assessment & Plan (09/10/2022 3:17 PM CDT): Try to eat smaller more frequent meals. Limit fatty foods which can make reflux worse. Try to stay upright after eating for 30-45 minutes. Avoid foods which cause acid (citrus, tomato based, spicy, coffee, alcohol, chocolate). Achieve a healthy weight. Assessment & Plan (05/03/2022 2:59 PM [employer]): Try to eat smaller more frequent meals. Limit fatty foods which can make reflux worse. Try to stay upright after eating for 30-45 minutes. Avoid foods which cause acid (citrus, tomato based, spicy, coffee, alcohol, chocolate). Achieve a healthy weight. Assessment & Plan (01/03/2022 1:30 PM CDT): Try to eat smaller more frequent meals. Limit fatty foods which can make reflux worse. Try to stay upright after eating for 30-45 minutes. Avoid foods which cause acid (citrus, tomato based, spicy, coffee, alcohol, chocolate). Achieve a healthy weight. Assessment & Plan (05/03/2021 11:09 AM [employer]): Try to eat smaller more frequent meals. Limit fatty foods which can make reflux worse. Try to stay upright after eating for 30-45 minutes. Avoid foods which cause acid (citrus, tomato based, spicy, coffee, alcohol, chocolate). Achieve a healthy weight. Assessment & Plan (11/08/2020 5:24 PM CDT): Try to eat smaller more frequent meals. Limit fatty foods which can make reflux worse. Try to stay upright after eating for 30-45 minutes. Avoid foods which cause acid (citrus, tomato based, spicy, coffee, alcohol, chocolate). Achieve a healthy weight. Assessment & Plan (05/22/2020 8:01 PM CDT): Try to eat smaller more frequent meals. Limit fatty foods which can make reflux worse. Try to stay upright after eating for 30-45 minutes. Avoid foods which cause acid (citrus, tomato based, spicy, coffee, alcohol, chocolate). Achieve a healthy weight. CKD (chronic kidney disease) stage 3, GFR 30-59 ml/min Assessment & Plan (07/26/2024 9:29 PM CDT): Lab Results Component Value Date GFRNAA 75 07/22/2024 GFRNAA 48 (L) 03/30/2024 GFRNAA 65 12/29/2023 Improved. Gfr rechecked with labs today. Assessment & Plan (03/30/2024 12:53 PM [employer]): Continue to increase water intake. Limit use of NSAIDs including Ibuprofen, Aleve, Motrin, etc. Continue aerobic exercise and maintain a healthy weight. Assessment & Plan (12/29/2023 1:24 PM CDT): Continue to increase water intake. Limit use of NSAIDs including Ibuprofen, Aleve, Motrin, etc. Continue aerobic exercise and maintain a healthy weight. Assessment & Plan (09/16/2023 10:47 AM CDT): Continue to increase water intake. Limit use of NSAIDs including Ibuprofen, Aleve, Motrin, etc. Continue aerobic exercise and maintain a healthy weight. Assessment & Plan (01/13/2023 10:32 AM [employer]): Continue to increase water intake. Limit use of NSAIDs including Ibuprofen, Aleve, Motrin, etc. Continue aerobic exercise and maintain a healthy weight. Assessment & Plan (09/10/2022 3:20 PM CDT): Continue to increase water intake. Limit use of NSAIDs including Ibuprofen, Aleve, Motrin, etc. Continue aerobic exercise and maintain a healthy weight. Assessment & Plan (05/03/2022 3:00 PM [employer]): Continue to increase water intake. Limit use of NSAIDs including Ibuprofen, Aleve, Motrin, etc. Continue aerobic exercise and maintain a healthy weight. Assessment & Plan (01/03/2022 1:31 PM CDT): Continue to increase water intake. Limit use of NSAIDs including Ibuprofen, Aleve, Motrin, etc. Continue aerobic exercise and maintain a healthy weight. Assessment & Plan (05/03/2021 11:10 AM [employer]): Continue to increase water intake. Limit use of NSAIDs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 Trimethoprim with Sulfamethoxazole IN TERPRETATION Susceptible Escherichia coli Meropenem INTERPRETATION Susceptible Escherichia coli Cefepime INTERPRETATION Susceptible Escherichia coli Ciprofloxacin INTERPRETATION Resistant Escherichia coli Ceftazidime INTERPRETATION Susceptible Escherichia coli Ceftriaxone INTERPRETATION Susceptible Escherichia coli Piperacillin/Tazobactam INTERPRETATIO N Susceptible Escherichia coli Cephalexin INTERPRETATION Susceptible Escherichia coli Cefuroxime-axetil INTERPRETATION Susceptible Escherichia coli Cefdinir INTERPRETATION Susceptible us Tracy Hernández NP LAB MICROBIOLOGY - GENERAL OR DERABLES Final Result Performing Organization Address [facility] Co de Phone Number OSMARVIC ALAS [phone] [address] [facility] [place] [address] * T4, free (07/22/2024 10:12 AM CDT) Free T4 1.09 0.90 - 1.70 ng/dL Blood 07/22/2024 10:1 2 AM CDT 07/22/2024 9:30 PM CDT Tracy Hernández NP LAB BLOOD ORDERABLES Final Re sult Performing Organization Address [facility] de Phone Number AAMIR ALAS [address] [address] [facility] [place] [address] * (ABNORMAL) Hemoglobin A1c (07/22/2024 10:12 AM CDT) Hgb A1C 5.9(H) 4.0 - 5.6 % Estimated Average Glucose 123 mg/dL AAMIR ALAS Comment: The ADA recommends reporting an estimated Average Glucose (eAG) with all Hemoglobin A1c results using the equation derived from a study of 507 normal and diabetic adults. Minority populations were underrepresented and children were not included. (Diabetes Care 31:8249-3703, 2008). The eAG is not equivalent to a fasting glucose. Blood 07/22/2024 10:1 2 AM CDT 07/22/2024 9:19 PM CDT Tracy Hernández NP LAB BLOOD ORDERABLES Final Re sult Performing Organization Address [facility] Co de Phone Number OSMARVIC [id number] [address] [facility] [place] [address] * (ABNORMAL) Lipid panel (07/22/2024 10:12 AM CDT) Cholesterol 195 30 - 199 mg/dL Comment: Interpretive Data Ages < or = 19 years Acceptable: <170 mg/dL Borderline high: 170-199 mg/dL High: >or= 200 mg/dL Ages > or = 20 years Desirable: <200 mg/dL Borderline high: 200-239 mg/dL High: >or= 240 mg/dL Literature References: 1. Expert Panel on Integrated Guidelines for Cardiovascular Health and Risk Reduction in Children and Adolescents. Pediatrics 2011;128:S213 2. NCEP Expert Panel. Circulation 2004;110:227 Current Interpretive Data was last revised on 2017. Triglycerides 177(H) <=149 mg/dL AAMIR Comment: Interpretive Data Ages < or = 9 years Acceptable: <75 mg/dL Borderline high: 75-99 mg/dL High: >or= 100 mg/dL Ages 10 to 20 years Acceptable: <90 mg/dL Borderline high: 90-129 mg/dL High: >or= 130 mg/dL Ages > or = 20 years Desirable: <150 mg/dL Borderline high: 150-199 mg/dL High: 200-499 mg/dL Very high: >or= 499 mg/dL Literature References: 1. Expert Panel on Integrated Guidelines for Cardiovascular Health and Risk Reduction in Children and Adolescents. Pediatrics 2011;128:S213 2. NCEP Expert Panel. Circulation 2004;110:227 Current Interpretive Data was last revised on 2017. HDL 69 >=40 mg/dL AAMIR ALAS Comment: Interpretive Data Ages < or = 19 years Acceptable: >45 mg/dL Borderline low: 40-45 mg/dL Low: <40 mg/dL Ages > or = 20 years Desirable: >or= 60 mg/dL Low: <40 mg/dL Literature References: 1. Expert Panel on Integrated Guidelines for Cardiovascular Health and Risk Reduction in Children and Adolescents. Pediatrics 2011;128:S213 2. NCEP Expert Panel. Circulation 2004;110:227 Current Interpretive Data was last revised on 2017. LDL, calculated 96 <=129 mg/dL AAMIR Comment: Interpretive Data Ages < or = 19 years Acceptable: <110 mg/dL Borderline high: 110-129 mg/dL High: >or= 130 mg/dL Ages > or = 20 years Optimal: <100 mg/dL Near optimal: 100-129 mg/dL Borderline high: 130-159 mg/dL High: >160 mg/dL Calculated using the Cabrera LDL-C estimating equation. This equation was implemented on 2023. Prior to this date LDL-C was estimated using the Friedewald equation. Literature References: 1. Expert Panel on Integrated Guidelines for Cardiovascular Health and Risk Reduction in Children and Adolescents. Pediatrics 2011;128:S213 2. NCEP Expert Panel. Circulation 2004;110:227 3. Rick Burgos et al. KANA Cardiol. 2020 July 01;5(5):540-548. doi: 10.1001/jamacardio.2020.0013 Current Interpretive Data was last revised on 2023. Non-HDL Cholesterol 126 mg/dL [facility] Comment: Interpretive Data Ages < or = 19 years Acceptable: <120 mg/dL Borderline high: 120-144 mg/dL High: >145 mg/dL Ages > or = 20 years When triglycerides are >200 mg/dL, Non-HDL cholesterol is a secondary target of therapy with treatment goals that are 30 mg/dL greater than the LDL cholesterol target. Literature References: 1. Expert Panel on Integrated Guidelines for Cardiovascular Health and Risk Reduction in Children and Adolescents. Pediatrics 2011;128:S213 2. NCEP Expert Panel. Circulation 2004;110:227 Current Interpretive Data was last revised on 2017. Chol/HDL ratio 3 [facility] Blood 07/22/2024 10:1 2 AM CDT 07/22/2024 9:19 PM CDT Tracy Hernández NP LAB BLOOD ORDERABLES Final Re sult [facility] [id number] [address] Department [place] [address] * Comprehensive metabolic panel (07/22/2024 10:12 AM CDT) Sodium 140 135 - 145 mmol/L Potassium, pl 3.9 3.3 - 4.9 mmol/L [facility] Chloride 99 97 - 110 mmol/L [facility] CO2 28 22 - 32 mmol/L [facility] Anion gap 13 2 - 15 mmol/L [facility] BUN 14 6 - 25 mg/dL [facility] Creatinine 0.76 0.60 - 1.10 mg/dL [facility] Glucose 107 70 - 199 mg/dL [facility] Comment: Interpretive Data Fasting glucose >/= 126 mg/dl is diagnostic for diabetes. Fasting is defined as no caloric intake for at least 8 hours. Fasting glucose between 100 mg/dl to 125 mg/dl is diagnostic of prediabetes. In a patient with classic symptoms of hyperglycemia or hyperglycemic crisis, a random glucose >/= 200 mg/dl is diagnostic for diabetes. In the absence of unequivocal hyperglycemia, results should be confirmed by repeat testing. The classification and Diagnosis of Diabetes Diabetes Care 2021; 46: S19-S40. Current interpretive data was last revised 2022. Calcium 9.6 8.5 - 10.3 mg/dL [facility] Bilirubin, total 0.6 0.1 - 1.2 mg/dL [facility] Protein, pl 7.3 6.5 - 8.5 g/dL [facility] Albumin 4.2 3.5 - 5.0 g/dL [facility] Alk phos 79 40 - 130 Units/L [facility] ALT 17 7 - 45 Units/L [facility] AST 35 10 - 45 Units/L [facility] Blood 07/22/2024 10:1 2 AM CDT 07/22/2024 9:19 PM CDT Tracy Hernández NP LAB BLOOD ORDERABLES Final Re sult AAMIR ALAS [id number] [address] Department [place] [address] * Dexa Axial Skeleton Bone Density 1 or 2 Site (12/29/2019 9:59 AM CDT) Anatomical Region Laterality Modality Body N/A Other 12/29/2019 10:0 2 AM CDT Impressions 12/29/2019 10:14 AM CDT According to the World Health Organization criteria, based upon the left femoral neck bone mineral density (T score value of -1.2), the patient has low bone mass (osteopenia). In this patient with low bone mass not currently on biphosphonate therapy, the 10 year probability for major osteoporotic fracture is 18% and for hip fracture is 5.1%. According to the World Health Organization, biphosphonate therapy is indicated if 10 year risk for a major osteoporotic fracture is greater than or equal to 20% or the 10 year risk for hip fracture is greater than or equal to 3%. General Recommendations: 1. Consider an evaluation for secondary causes of osteoporosis in patients with low bone density. 2. All patients should be counseled on adequate intake of calcium (1200 mg/day), vitamin D (600-800 IU daily) and exercise. 3. The National Osteoporosis Foundation (NOF) guidelines recommend initiating pharmacological therapy, in addition to calcium, vitamin D and exercise, to reduce fracture risk when: a. T-score less than or equal to -2.5 after secondary causes excluded. b. T-score between -1.0 and -2.5 with secondary causes associated with high risk of fracture. c. 10-year probability of hip fracture more than or equal to 3% (based on FRAX score). d. 10-year probability of major osteoporosis related fracture more than or equal to 20% (based on FRAX score). Followup: People with diagnosed cases of osteoporosis or at high risk for fracture should have regular bone mineral density tests. For patients eligible for Medicare, routine testing is allowed once every 2 years. The testing frequency can be increased to one year for patients who have rapidly progressive disease or those who are receiving long-term steroid therapy. Electronically signed by: Pranay Zavala M.D. Narrative 12/29/2019 10:14 AM CDT STUDY DESCRIPTION: DEXA AXIAL SKELETON BONE DENSITY 1 OR MORE SITES CLINICAL INDICATIONS: Bone density screening, asymptomatic. Postmenopausal COMPARISON: None TECHNIQUE: Dual x-ray absorptiometry (DEXA) was performed using [employer] system. GENERAL GUIDELINES: According to WHO guidelines, a T score of -1.0 or greater is normal, between -1.0 to -2.4 is osteopenia, and -2.5 or less is osteoporosis. Z score (instead of T score) is preferred for pediatric, young adults, premenopausal women and men under age of 50 years. In these patients, a Z score greater than or equal to -2.0 is considered to be in the expected range. FINDINGS: LEFT FEMORAL NECK: T-score -1.2. Bone mineral density 0.715 g/sq/cm. LEFT TOTAL HIP: T-score -0.9. Bone mineral density 0.826 g/sq/cm. LUMBAR SPINE: T-score 0.1. Bone mineral density 1.054 g/sq/cm. Procedure Note Pranay Zavala MD - 12/29/2019 STUDY DESCRIPTION: DEXA AXIAL SKELETON BONE DENSITY 1 OR MORE SITES CLINICAL INDICATIONS: Bone density screening, asymptomatic. Postmenopausal COMPARISON: None TECHNIQUE: Dual x-ray absorptiometry (DEXA) was performed using [employer] system. GENERAL GUIDELINES: According to WHO guidelines, a T score of -1.0 or greater is normal, between -1.0 to -2.4 is osteopenia, and -2.5 or less is osteoporosis. Z score (instead of T score) is preferred for pediatric, young adults, premenopausal women and men under age of 50 years. In these patients, a Z score greater than or equal to -2.0 is considered to be in the expected range. FINDINGS: LEFT FEMORAL NECK: T-score -1.2. Bone mineral density 0.715 g/sq/cm. LEFT TOTAL HIP: T-score -0.9. Bone mineral density 0.826 g/sq/cm. LUMBAR SPINE: T-score 0.1. Bone mineral density 1.054 g/sq/cm. IMPRESSION: According to the World Health Organization criteria, based upon the left femoral neck bone mineral density (T score value of -1.2), the patient has low bone mass (osteopenia). In this patient with low bone mass not currently on biphosphonate therapy, the 10 year probability for major osteoporotic fracture is 18% and for hip fracture is 5.1%. According to the World Health Organization, biphosphonate therapy is indicated if 10 year risk for a major osteoporotic fracture is greater than or equal to 20% or the 10 year risk for hip fracture is greater than or equal to 3%. General Recommendations: 1. Consider an evaluation for secondary causes of osteoporosis in patients with low bone density. 2. All patients should be counseled on adequate intake of calcium (1200 mg/day), vitamin D (600-800 IU daily) and exercise. 3. The National Osteoporosis Foundation (NOF) guidelines recommend initiating pharmacological therapy, in addition to calcium, vitamin D and exercise, to reduce fracture risk when: a. T-score less than or equal to -2.5 after secondary causes excluded. b. T-score between -1.0 and -2.5 with secondary causes associated with high risk of fracture. c. 10-year probability of hip fracture more than or equal to 3% (based on FRAX score). d. 10-year probability of major osteoporosis related fracture more than or equal to 20% (based on FRAX score). Followup: People with diagnosed cases of osteoporosis or at high risk for fracture should have regular bone mineral density tests. For patients eligible for Medicare, routine testing is allowed once every 2 years. The testing frequency can be increased to one year for patients who have rapidly progressive disease or those who are receiving long-term steroid therapy. Electronically signed by: Pranay Zavala M.D. Shanna Oakes NP IMG DXA PROCEDURES Final Resul t from Last 3 Months or Most Recently Relevant to Health Maintenance Insurance MEDICARE COMMERCIAL GENERIC [facility] MEDICARE COMMERCIAL GENERIC MEDICARE COMMERCIAL GENERIC Advance Directives For more information, please contact: [phone] Documents on File Type Date Recorded Patient Cat And Dog Bather Expl anation ADVANCE DIRECTIVE 08/20/2019 2:35 PM Power of Oncology Social Worker-Medical ADVANCE DIRECTIVE 07/15/2018 11:14 AM ADVANCE DIRECTIVE 12/10/2017 10:57 AM ADVANCE DIRECTIVE 11/28/2017 11:12 AM * Full Code (Latest Code Status on File) Date Activated Date Inactivated Comments 07/15/2018 6:28 PM 07/18/2018 4:54 PM * Full Code Date Activated Date Inactivated Comments 04/03/2018 7:41 AM 04/05/2018 8:11 PM * Full Code Date Activated Date Inactivated Comments 12/10/2017 3:25 PM 12/13/2017 4:26 PM Care Teams 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
--- OUTSIDE RECORDS SUMMARY | 2024-08-03 11:33 | XMS_ITS | Referral Summary ---
Author Organization [facility] Address [address] [place] [address] Care Team Providers Care Furniture Assembler And Installer Name Role Phone Tracy Hernández NP Primary Care Provider [phone] Encounters Date Type Department Care Team Description 08/02/2024 Nurse Triage [facility] Medical [facility] Primary Care at [address] [address] Tracy Hernández NP 07/23/2024 Results Follow-Up [facility] Primary Care at [address] [address] Tracy Hernández NP Comprehensive metabolic panel, Thyroid Function [place], Hemoglobin A1c, Additional followed-up results: 8 07/22/2024 10:12 AM CDT - 07/22/2024 11:59 PM CDT Hospital Encounter [facility] [address] [place] [address] Hypertensive renal disease; Acquired hypothyroidism; Elevated glucose; Hypercholesterolemia Discharge Disposition: Discharge to home or self care 07/22/2024 Telephone [facility] [address] [address] Shanna Oakes NP Medical Question/Miscellaneous 07/22/2024 10:15 AM CDT Lab [facility] Outpatient Lab at [address] [address] 07/22/2024 9:30 AM CDT Office Visit [facility] Primary Care at [address] [address] Tracy Hernández NP Acquired hypothyroidism (Primary Dx); Hypertensive renal disease; Hypercholesterolemia; Elevated glucose; Gastroesophageal reflux disease without esophagitis; Stage 3a chronic kidney disease (HCC); Generalized anxiety disorder with panic attacks; Major depression single episode, in partial remission; Primary insomnia 07/05/2024 Telephone [facility] [address] [place] [phone] Shanna Oakes NP Referral Request from Last 3 Months Allergies Active Allergy Reactions Criticality Noted Date [...] 1 tablet (100 mcg total) by mouth manager water wastewater before breakfast 90 tablet 5 Active acetaminophen- codeine (TYLENOL with CODEINE #3) 300-30 mg per tablet Take by mouth every 12 (twelve) hours as needed 3 07/23/19 Discontinue d(Therapy completed) methenamine (HIPREX) 1 gram [...] zolpidem. Assessment & Plan (03/30/2024 12:53 PM COLLAR PADDER BLINDSTITCH): Stable, continue Zolpidem Assessment & Plan (12/29/2023 1:26 PM CDT): Worse. Will switch to an ER Zolpidem. Dermatochalasis of both upper eyelids 10/15/2022 Assessment & Plan (10/16/2023 4:47 PM CDT): Pt not bothered, monitor Assessment & Plan (10/15/2022 12:55 PM CDT): Not v/s, monitor Atherosclerosis of aorta 05/09/2022 Overview (05/09/2022): 05/09/21- xray Assessment & Plan (03/30/2024 12:52 PM COLLAR PADDER BLINDSTITCH): Stable, continue aspirin and Atorvastatin Assessment & Plan (09/16/2023 10:46 AM CDT): Stable, continue Atorvastatin and aspirin. Assessment & Plan (01/13/2023 10:31 AM COLLAR PADDER BLINDSTITCH): Stable, continue aspirin and Atorvastatin Encounter for Medicare annual wellness exam 05/02 Assessment & Plan (03/30/2024 12:49 PM COLLAR PADDER BLINDSTITCH): Please see below for a list of your medical conditions and recommendations. Assessment & Plan (01/13/2023 10:30 AM COLLAR PADDER BLINDSTITCH): Please see below for a list of [...] 020 Assessment & Plan (03/30/2024 12:53 PM COLLAR PADDER BLINDSTITCH): Stable, continue aspirin and Atorvastatin Assessment & Plan (09/16/2023 10:47 AM CDT): Stable, continue Atorvastatin and aspirin Assessment & Plan (01/13/2023 10:32 AM COLLAR PADDER BLINDSTITCH): Stable, continue aspirin and Atorvastatin Assessment & Plan (01/03/2022 1:32 PM CDT): Stable, continue aspirin and Atorvastatin. Assessment & Plan (05/03/2021 11:10 AM COLLAR PADDER BLINDSTITCH): Stable, continue Atorvastatin and aspirin Assessment & [...] UTI Assessment & Plan (04/15/2017 12:43 PM COLLAR PADDER BLINDSTITCH): Having increased urinary frequency but no pain, feels similar to UTIs in the past. UA today with just trace blood, negative for leuks and nitrites Advised to keep hydrated and will send UA for culture BMI 28.0-28.9,adult 04/15/2017 Assessment & Plan (10/08/2017 11:47 AM CDT): Try to cut back on calories. Most people should eat between 2310-4643 calories to lose weight. Decrease your carbohydrate [...] help. Assessment & Plan (04/15/2017 11:14 AM COLLAR PADDER BLINDSTITCH): BMI Follow-up includes: nutrition counseling and exercise counseling. Chronic bilateral low back pain with sciatica Assessment & Plan (09/16/2023 10:55 AM CDT): Chronic and unchanged. Seeing ELLE Fung. Assessment & Plan (09/10/2022 3:20 PM CDT): Chronic and unchanged. Continue Tramadol and is using to be able to participate in her ADLs. Assessment & Plan (01/03/2022 1:31 PM CDT): Chronic and unchanged. Continue injections with pain management. Assessment & Plan (05/03/2021 11:10 AM COLLAR PADDER BLINDSTITCH): Stable, continue Gabapentin and Duloxetine Assessment & Plan (12/19/2019 7:35 PM CDT): Stable, continue duloxetine Assessment & Plan (06/14/2019 8:10 AM CDT): Requires chronic duloxetine and gabapentin therapy. Does see pain management at times. Assessment & Plan (04/15/2017 12:40 PM COLLAR PADDER BLINDSTITCH): Improved and using lidocaine patches which help. Suspect this is more from bulging disc than it is from UTI and patient agrees. Major depression single episode, in partial amanda ssion 08/28/2016 Assessment & Plan (03/30/2024 12:53 PM COLLAR PADDER BLINDSTITCH): Stable, continue Duloxetine Assessment & Plan (12/29/2023 1:26 PM CDT): Stable, continue Duloxetine Assessment & Plan (01/13/2023 10:33 AM COLLAR PADDER BLINDSTITCH): Stable, continue Duloxetine Assessment & Plan (09/10/2022 3:17 PM CDT): Improved. Continue Duloxetine Assessment & Plan (05/03/2022 2:59 PM COLLAR PADDER BLINDSTITCH): Stable, continue Duloxetine Assessment & Plan (01/03/2022 1:30 PM CDT): Intermittent. Continue Duloxetine. Assessment & Plan (05/03/2021 11:09 AM COLLAR PADDER BLINDSTITCH): Chronic and unchanged. Continue Duloxetine Assessment & [...] Duloxetine Assessment & Plan (02/16/2018 1:25 PM COLLAR PADDER BLINDSTITCH): Doing well with the clonazepam and duloxetine Assessment & Plan (04/15/2017 12:42 PM COLLAR PADDER BLINDSTITCH): Still teary in the room over the [...] disease Assessment & Plan (03/30/2024 12:49 PM COLLAR PADDER BLINDSTITCH): The blood pressure is adequately controlled. Ideally, [...] way. Assessment & Plan (01/13/2023 10:30 AM COLLAR PADDER BLINDSTITCH): The blood pressure is adequately controlled. Ideally, [...] way. Assessment & Plan (05/03/2022 2:57 PM COLLAR PADDER BLINDSTITCH): The blood pressure is adequately controlled. Ideally, [...] way. Assessment & Plan (05/03/2021 11:08 AM COLLAR PADDER BLINDSTITCH): The blood pressure is adequately controlled. Ideally, [...] Hypothyroidism Assessment & Plan (03/30/2024 12:50 PM COLLAR PADDER BLINDSTITCH): Stable, continue levothyroxine Assessment & Plan (12/29/2023 1:24 PM CDT): Stable, continue levothyroxine Assessment & Plan (09/16/2023 10:46 AM CDT): Stable? Will recheck today. Assessment & Plan (01/13/2023 10:31 AM COLLAR PADDER BLINDSTITCH): Stable, continue levothyroxine. Assessment & Plan (09/10/2022 3:15 PM CDT): Stable? Will recheck today. Assessment & Plan (05/03/2022 2:57 PM COLLAR PADDER BLINDSTITCH): Stable? Will recheck today. Assessment & Plan (01/03/2022 1:24 PM CDT): Stable, continue levothyroxine Assessment & Plan (05/03/2021 11:08 AM COLLAR PADDER BLINDSTITCH): Stable? Continue levothyroxine. Assessment & Plan (11/08/2020 [...] are stable, reviewed previous lipid levels in [facility]. Continue statin therapy. Lipitor (atorvastatin) Order for lipid panel was given today to be obtained. Pt voiced understanding of lab drawn and continuation of current medication regimen. Assessment & Plan (03/30/2024 12:49 PM COLLAR PADDER BLINDSTITCH): Continue low fat eating- limit fried foods, [...] prescribed. Assessment & Plan (01/13/2023 10:30 AM COLLAR PADDER BLINDSTITCH): Continue low fat eating- limit fried foods, [...] prescribed. Assessment & Plan (05/03/2022 2:58 PM COLLAR PADDER BLINDSTITCH): Continue low fat eating- limit fried foods, [...] day. Assessment & Plan (05/03/2021 11:09 AM COLLAR PADDER BLINDSTITCH): Continue low fat eating- limit fried foods, [...] attacks Assessment & Plan (03/30/2024 1:37 PM COLLAR PADDER BLINDSTITCH): Not controlled, continue Lorazepam as needed Assessment & Plan (01/13/2023 10:32 AM COLLAR PADDER BLINDSTITCH): Stable, continue Duloxetine and Lorazepam as needed. Assessment & Plan (09/10/2022 3:18 PM CDT): Improved. Continue Duloxetine and uses Lorazepam as needed. Try not take this medication daily or snf is at all possible as it can lead to dependence/addiction/tolerance, memory issues and may cause depression buttermaker. Keep this medication out of the reach of other people. Do not drive or drink alcohol with this medication. Assessment & Plan (05/03/2022 3:00 PM COLLAR PADDER BLINDSTITCH): Chronic and unchanged. Continue Lorazepam as needed. Assessment & Plan (01/03/2022 1:31 PM CDT): Stable, continue Lorazepam as needed Assessment & Plan (11/08/2020 5:25 PM CDT): Stable, continue Clonazepam Assessment & Plan (05/22/2020 8:01 PM CDT): Stable, continue Clonazepam as needed. Do not take this medication daily or snf is at all possible as it can lead to dependence/addiction/tolerance, memory issues and may cause depression snf. Keep this medication out of the reach [...] disease) Assessment & Plan (03/30/2024 12:53 PM COLLAR PADDER BLINDSTITCH): Try to eat smaller more frequent meals. [...] weight. Assessment & Plan (01/13/2023 10:32 AM COLLAR PADDER BLINDSTITCH): Try to eat smaller more frequent meals. [...] weight. Assessment & Plan (05/03/2022 2:59 PM COLLAR PADDER BLINDSTITCH): Try to eat smaller more frequent meals. [...] weight. Assessment & Plan (05/03/2021 11:09 AM COLLAR PADDER BLINDSTITCH): Try to eat smaller more frequent meals. [...] today. Assessment & Plan (03/30/2024 12:53 PM COLLAR PADDER BLINDSTITCH): Continue to increase water intake. Limit use [...] weight. Assessment & Plan (01/13/2023 10:32 AM COLLAR PADDER BLINDSTITCH): Continue to increase water intake. Limit use of NSAIDs including Ibuprofen, Aleve, Motrin, etc. Continue aerobic exercise and maintain a healthy weight. Assessment & Plan (09/10/2022 3:20 PM CDT): Continue to increase water intake. Limit use of NSAIDs including Ibuprofen, Aleve, Motrin, etc. Continue aerobic exercise and maintain a healthy weight. Assessment & Plan (05/03/2022 3:00 PM COLLAR PADDER BLINDSTITCH): Continue to increase water intake. Limit use of NSAIDs including Ibuprofen, Aleve, Motrin, etc. Continue aerobic exercise and maintain a healthy weight. Assessment & Plan (01/03/2022 1:31 PM CDT): Continue to increase water intake. Limit use of NSAIDs including Ibuprofen, Aleve, Motrin, etc. Continue aerobic exercise and maintain a healthy weight. Assessment & Plan (05/03/2021 11:10 AM COLLAR PADDER BLINDSTITCH): Continue to increase water intake. Limit use [...] (06/12/2018): Added automatically from request for surgery [id number] Encounter for weight management 06/05/2018 07/22/2024 Dyslipidemia [...] needed Assessment & Plan (04/10/2018 4:07 PM COLLAR PADDER BLINDSTITCH): The patient has done very well overall [...] x-rays. Assessment & Plan (02/18/2018 11:58 AM COLLAR PADDER BLINDSTITCH): Treatment options were discussed. The patient would [...] on calories. Most people should eat between 0875-9332 calories to lose weight. Decrease your carbohydrate [...] on calories. Most people should eat between 4414-2342 calories to lose weight. 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 Rice - doing well; no [...] AM CDT): Stable RTC 1 yr w/ Demetrulius Assessment & Plan (06/05/2018 10:41 AM CDT): Stable RTC 1 yr Acute colitis 12/22/2018 Immunizations Immunization Administration Dates Next Due Influenza, [...] Bi valent, Original/omicron Ba.1 02/16/2024 Tdap 08/22/2020,03/21/2014 Social History Tobacco Use Types Packs/Day Years [...] on file Legal Sex Female 11:38 PM COLLAR PADDER BLINDSTITCH Gender Identity Female 08/02/2019 9:59 AM CDT Sexual Orientation Straight 06/03/2018 6: 51 PM CDT Last Filed Vital Signs Vital Sign Reading [...] 07/22/2024 9:31 AM CDT Plan of Treatment Not on file Medical Devices Implanted Type Area Customer Care Specialist Device Identifier Shelf Expiration Date Model / Serial / Lot [employer] 6191-1-010 Simplex P Radiopaque Full Dose Cement Bone Sterile - [id number] Implanted:Qty: 1 on 07/15/2018 by Irving Mccauley MD at [facility] Bone Cement Left: Knee [employer] 07/31/2020 6191-1-010 / / [id number] [employer] 6191-1-010 Simplex P Radiopaque Full Dose Cement Bone Sterile - [id number] Implanted:Qty: 1 on 07/15/2018 by Irving Mccauley MD at [facility] Bone Cement Left: Knee [employer] 07/31/2020 6191-1-010 / / [id number] Baseplate Shoulder 15mm Length - [id number] Implanted:Qty: 1 on 12/10/2017 by Tayo Murray DO at [facility] Right: Shoulder [employer] Rhea 09/30/2022 GBP-0960-0 30-15 / / [id number] Screw 5.5mm 20mm Length Shoulder - [id number] Implanted:Qty: 1 on 12/10/2017 by Tayo Murray DO at [facility] Right: Shoulder [employer] Rhea 07/29/2022 SCW-0960-0 55-20 / / [id number] Screw And Cap 4.5mm 15mm Shoulder - [id number] Implanted:Qty: 2 on 12/10/2017 by Tayo Murray DO at [facility] Right: Shoulder [employer] Rhea 08/28/2020 SSC-0960-0 45-15 / / [id number] Screw And Cap 4.5mm 20mm Shoulder - [id number] Implanted:Qty: 1 on 12/10/2017 by Tayo Murray DO at [facility] Right: Shoulder [employer] Rhea 06/01/2022 SSC-0960-0 45-20 / / [id number] Screw And Cap 4.5mm 25mm Shoulder - [id number] Implanted:Qty: 1 on 12/10/2017 by Tayo Murray DO at [facility] Right: Shoulder [employer] Rhea 05/30/2022 SSC-0960-0 45-25 / / [id number] Glenosphere Shoulder 5mm Eccentric - [id number] Implanted:Qty: 1 on 12/10/2017 by Tayo Murray DO at [facility] Right: Shoulder [employer] Rhea 11/30/2021 GLS-0960-0 5E / / [id number] [employer] Rhea [id number] 1 Titan 16.5mm 12.1mm 90.4mm Press Fit 12 Spline Modular - [id number] Implanted:Qty: 1 on 12/10/2017 by Tayo Murray DO at [facility] Right: Shoulder [employer] Rhea 09/30/2021 STEM-0920- 025-11 / / [id number] Body Shoulder Small Reverse [id number] - [id number] Implanted:Qty: 1 on 12/10/2017 by Tayo Murray DO at [facility] Right: Shoulder [employer] Rhea 04/02/2022 BBS-0960-2 1SML / / [id number] Liner +0mm 9.6mm Standard 20mm 2.7mm 38.7mm Shoulder Humeral - [id number] - [id number] Implanted:Qty: 1 on 12/10/2017 by Tayo Murray DO at [facility] Right: Shoulder [employer] Rhea 04/30/2021 LNR-0960-0 0S / LNR-0960-0 0S / [id number] [employer]/O rtho [id number] Shannan Ii [id number] Knee Oval Component Patellar Uhmwpe - [id number] Implanted:Qty: 1 on 07/15/2018 by Irving Mccauley MD at [facility] Left: Knee [employer]/ Ortho [id number] 04/25/2028 [id number] / / [id number] [employer]/O rtho [id number] Journey Knee Left 3 Baseplate Tibial - [id number] Implanted:Qty: 1 on 07/15/2018 by Irving Mccauley MD at [facility] Left: Knee [employer]/ Ortho [id number] 09/23/2027 [id number] / / [id number] [employer]/O rtho [id number] Journey Ii Cruciate Retain Knee Left 4 Component Femoral Cocr - [id number] Implanted:Qty: 1 on 07/15/2018 by Irving Mccauley MD at [facility] Left: Knee [employer]/ Ortho [id number] 12/06/2027 [id number] / / [id number] [employer]/O rtho [id number] Journey Ii Left 3-4 Deep [facility] Insert Articular Xlpe - [id number] Implanted:Qty: 1 on 07/15/2018 by Irving Mccauley MD at [facility] Left: Knee [employer]/ Ortho [id number] 03/09/2026 [id number] / / [id number] Explanted Type Area Customer Care Specialist Device Identifier Shelf Expiration Date Model / Serial / Lot [employer] [id number] 2mm 150mm Elbow Shoulder Guide Pin Orthopedic - [id number] Explanted:Qty: 2 on 12/10/2017 at [facility] Right: Shoulder [employer] [id number] / / Procedures Procedure Name Priority [...] NP LAB BLOOD ORDERABLES Final Re sult [facility] [address] Department [place] [address] * (ABNORMAL) Differential, auto (07/22/2024 10:12 AM CDT) Neutrophil abs 4.47 1.50 - 6.50 K/cumm Imm gran abs 0.03 0.00 - 0.10 K/cumm [facility] Lymphocyte abs 2.26 0.80 - 3.30 K/cumm [facility] Monocyte abs 0.86(H) 0.20 - 0.80 K/cumm [facility] Eosinophil abs 0.16 0.00 - 0.50 K/cumm [facility] Basophil abs 0.05 0.00 - 0.10 K/cumm [facility] Neutrophil pct 57.1 % [facility] Comment: Interpretive Data Percent cell count reference ranges are not reported, since discordance with absolute values may lead to misinterpretation of CBC data. Current Interpretive Data was last revised on 2017. Imm gran pct 0.4 % [facility] Comment: Interpretive Data Percent cell count reference ranges are not reported, since discordance with absolute values may lead to misinterpretation of CBC data. Current Interpretive Data was last revised on 2017. Lymphocyte pct 28.9 % [facility] Comment: Interpretive Data Percent cell count reference ranges are not reported, since discordance with absolute values may lead to misinterpretation of CBC data. Current Interpretive Data was last revised on 2017. Monocyte pct 11.0 % [facility] Comment: Interpretive Data Percent cell count reference ranges are not reported, since discordance with absolute values may lead to misinterpretation of CBC data. Current Interpretive Data was last revised on 2017. Eosinophil pct 2.0 % [facility] Comment: Interpretive Data Percent cell count reference ranges are not reported, since discordance with absolute values may lead to misinterpretation of CBC data. Current Interpretive Data was last revised on 2017. Basophil pct 0.6 % [facility] Comment: Interpretive Data Percent cell count reference ranges are not reported, since discordance with absolute values may lead to misinterpretation of CBC data. Current Interpretive Data was last revised on 2017. Blood 07/22/2024 10:1 2 AM CDT 07/22/2024 9:19 PM CDT Tracy Hernández NP LAB BLOOD ORDERABLES Final Re sult Performing Organization Address [facility] Co de Phone Number AAMIR ALAS [phone] [place], [place] [id number] * (ABNORMAL) Thyroid Function [place] (07/22/2024 10:12 AM CDT) TSH 20.00(H) 0.30 - 4.20 mcIUnit/mL Blood 07/22/2024 10:1 2 AM CDT 07/22/2024 9:19 PM CDT Tracy Hernández NP LAB BLOOD ORDERABLES Final Re sult Performing Organization Address City/[facility] Co de Phone Number AAMIR ALAS [phone] [address] [place] [address] * (ABNORMAL) Urinalysis reflex to microscopic and culture Urine, clean voided (07/22/2024 10:12 AM CDT) Color, ur Yellow Yellow Clarity, ur Turbid(A) Clear [facility] Specific gravity, ur 1.013 1.003 - 1.030 [facility] pH, urine 6.5 [facility] Comment: Interpretive Data U rine pH is affected by diet, medications, systemic acid-base disturbances, and renal tubular function. pH may affect urinary stone formation. For example, urine pH below 6.0 may help reduce the tendency for calcium phosphate stones and pH greater than 6.0 may reduce the tendency for uric acid stone formation. Source: [facility] Current Interpretive Data was last revised on [...] Reflex to microscopic UA will be performed. [facility] Urine, clean voided 07/22/2024 10:12 AM CDT 07/22/2024 9:19 PM CDT Tracy Hernández NP LAB MICROBIOLOGY - GENERAL OR DERABLES Final Result [facility] [address] [place] [address] * (ABNORMAL) CBC with auto differential (07/22/2024 10:12 AM CDT) WBC 7.83 3.80 - 9.90 K/cumm Hgb 13.2 11.9 - 15.5 g/dL [facility] Hct 42.3 35.6 - 45.5 % [facility] Plt 212 150 - 400 K/cumm [facility] MPV 10.6 9.1 - 12.3 fL [facility] RBC 4.01 3.90 - 5.20 M/cumm [facility] MCV 105.5(H) 81.3 - 96.4 fL [facility] MCH 32.9 27.1 - 33.3 pg [facility] MCHC 31.2(L) 32.3 - 35.7 g/dL [facility] RDW CV 13.8 11.1 - 14.9 % [facility] RDW SD 54.0(H) 35.7 - 48.1 fL [facility] NRBC abs 0.00 0.00 - 0.01 K/cumm [facility] Blood 07/22/2024 10:1 2 AM CDT 07/22/2024 9:19 PM CDT Tracy Hernández RN HOSPITAL LAB BLOOD ORDERABLES Final Re sult Performing Organization Address [facility] Co de Phone Number AAMIR [phone] [address] [place] [address] * (ABNORMAL) Urinalysis, microscopic only (07/22/2024 10:12 AM CDT) WBC, ur >50(A) 0 - 5 /HPF RBC, ur 21-50(A) 0 - 2 /HPF [facility] Bacteria, ur 4+(A) [facility] Amorphous crystals, ur 1+(A) [facility] Culture Reflex Comment Reflex to urine culture will be performed. [facility] Urine, clean voided 07/22/2024 10:12 AM CDT 07/22/2024 9:19 PM CDT Tracy Hernández NP LAB URINE ORDERABLES Final Re sult Performing Organization Address [facility] de Phone Number AAMIR [phone] [address] Department [place], [place] [id number] * (ABNORMAL) Urine culture Urine, clean voided (07/22/2024 10:12 AM CDT) Report Final Report: Greater than or equal to 100,000 colonies/mL of Escherichia coli Plus growth of clinically insignificant bacterial lashonda. (.) Comment:Testing performed by : [facility], [address], [place]., [address] Organism ESCHERICHIA COLI [facility] Organism PLUS GROWTH OF CLINICALLY INSIGNIFICANT LASHONDA. [facility] Urine, clean voided 07/22/2024 10:12 AM CDT 07/23/2024 2:19 AM CDT Narrative AAMIR ALAS - 07/25/2024 12:17 PM CDT Urine culture reflexed based upon urinalysis results. Testing performed by [facility] Microbiology Laboratory ([phone]) Organism Antibiotic Method Susceptibility Escherichia coli Ampicillin [...] INTERPRETATION Susceptible Escherichia coli Cefdinir INTERPRETATION Susceptible Tracy Hernández NP LAB MICROBIOLOGY - GENERAL OR DERABLES Final Result Performing Organization Address [facility] Co de Phone Number AAMIR [phone] [address] [place] [address] * T4, free (07/22/2024 10:12 AM CDT) Free T4 1.09 0.90 - 1.70 ng/dL Blood 07/22/2024 10:1 2 AM CDT 07/22/2024 9:30 PM CDT Tracy Hernández NP LAB BLOOD ORDERABLES Final Re sult Performing Organization Address [facility] Co de Phone Number AAMIR [phone] [address] [place] [address] * (ABNORMAL) Hemoglobin A1c (07/22/2024 10:12 AM CDT) Hgb A1C 5.9(H) 4.0 - 5.6 % Estimated Average Glucose 123 mg/dL AAMIR ALAS Comment: The ADA recommends reporting an estimated Average Glucose (eAG) with all Hemoglobin A1c results using the equation derived from a study of 507 normal and diabetic adults. Minority populations were underrepresented and children were not included. (Diabetes Care 31:0321-0318, 2008). The eAG is not equivalent to a fasting glucose. Blood 07/22/2024 10:1 2 AM CDT 07/22/2024 9:19 PM CDT us Tracy Hernández NP LAB BLOOD ORDERABLES Final Re sult AAMIR [id number] Department [place] [address] * (ABNORMAL) Lipid panel (07/22/2024 10:12 AM [...] on 2017. Triglycerides 177(H) <=149 mg/dL AAMIR ALAS Comment: Interpretive Data Ages [...] 2017. LDL, calculated 96 <=129 mg/dL AAMIR ALAS Comment: Interpretive Data Ages < or = 19 years Acceptable: <110 mg/dL Borderline high: 110-129 mg/dL High: >or= 130 mg/dL Ages > or = 20 years Optimal: <100 mg/dL Near optimal: 100-129 mg/dL Borderline high: 130-159 mg/dL High: >160 mg/dL Calculated using the Rick LDL-C estimating equation. This equation was implemented on 2023. Prior to this date LDL-C was estimated using the Friedewald equation. Literature References: 1. Expert Panel on Integrated Guidelines for Cardiovascular Health and Risk Reduction in Children and Adolescents. Pediatrics 2011;128:S213 2. NCEP Expert Panel. Circulation 2004;110:227 3. Rick Hanson al. KANA Cardiol. 2019July 01;5(5):540-548. doi: 10.1001/jamacardio.2020.0013 Current Interpretive Data was last revised on 2023. Non-HDL Cholesterol 126 mg/dL AAMIR ALAS Comment: Interpretive Data Ages [...] last revised on 2017. Chol/HDL ratio 3 AAMIR ALAS Blood 07/22/2024 10:1 2 AM CDT 07/22/2024 9:19 PM CDT Tracy Hernández RN HOSPITAL LAB BLOOD ORDERABLES Final [facility] [address] [place] [address] * Comprehensive metabolic panel (07/22/2024 10:12 AM [...] classification and Diagnosis of Diabetes Diabetes Care 202; 46: S19-S40. Current interpretive data was last [...] BLOOD ORDERABLES Final Re sult AAMIR ALAS [address] [place] [address] * Dexa Axial Skeleton Bone Density 1 [...] receiving long-term steroid therapy. Electronically signed by: Gianna Pearson 12/29/2019 10:14 AM CDT STUDY DESCRIPTION: DEXA [...] by: Pranay Zavala M.D. Shanna Oakes NP IM DXA PROCEDURES Final Resul t from Last 3 Months or Most Recently Relevant to Health Maintenance Insurance MEDICARE COMMERCIAL GENERIC IDPR MEDICARE COMMERCIAL GENERIC MEDICARE COMMERCIAL GENERIC Advance Directives For more information, please contact: [phone] Documents on File Type Date Recorded Patient Registration Coordinator Expl anation ADVANCE DIRECTIVE 08/20/2019 2:35 PM Power of Car [employer] ADVANCE DIRECTIVE 07/15/2018 11:14 AM ADVANCE DIRECTIVE [...] 3:25 PM 12/13/2017 4:26 PM Care Teams Furniture Assembler And Installer Relationship Specialty Start Date End Date Tracy Hernández NP [address] [address] PCP - General Family Medicine 07/22/24
[2024-08-03 11:48] VITALS: BP 127/89; PULSE 95; RESP 18; O2SAT 99
[2024-08-03 12:07] LABS: Add Urine Microscopic? YES; Appearance Urine Clear (Clear); Bacteria Urine None Seen /hpf; Bilirubin Urine Negative (Negative); Blood Urine Negative (Negative); Color Urine Yellow (Yellow); Glucose Urine UA Negative (Negative); Ketones Urine Negative (Negative); Leukocyte Esterase Ur 2+ LEU/UL (Negative); Nitrate Urine Negative (Negative); Protein Urine Negative (Negative); RBC Urine 0-2 /hpf (0-2); Specific Grav Ur 1.011 (1.001-1.035); Squamous Epithelial Cell Urine None Seen /hpf (Few); pH Urine 7.5 (5.0-9.0)
[2024-08-03] MEDS: SODIUM CHLORIDE 0.9% IV 1,000 ML 999 ML IV CONT (12:42)
--- OUTSIDE RECORDS SUMMARY | 2024-08-03 12:43 | XMS_ITS | Encounter Summary ---
Author Organization [facility] Address [address] [place] [address] Phone Care Team Providers Care Double End Chucking Machine Operator Name Role Phone Matt Painting MD Primary Care Provider [phone] Tyesha Abarca DPT Unavailable Unavailable Yesi Cook DPT Unavailable Unavailable Renetta Pearl MA Unavailable [phone] Vernon Hernandez RN Unavailable [phone] Vernon Hernandez RN Unavailable [phone] Renetta Pearl MA Unavailable [phone] Shanna Oakes NUT ROASTER HELPER Primary Care Provider [phone] Tracy Hernández NUT ROASTER HELPER Primary Care Provider [phone] Encounter Details Date Type Department Care Team (Late st Contact Info) Description 06/12/2017 Orders Only [facility] ProviderChente MD [facility] [place] [address] Social History Tobacco Use Types Packs/Day Years Used Date Smoking Tobacco: Never Smokeless Tobacco: Never Alcohol Use Standard Drinks/Week Comments No 0 (1 standard drink = 0.6 oz pur e alcohol) Comments Unknown Sex and Gender Information Value Date Recorded Sex Assigned at Not on file Legal Sex Female 11:38 PM LAB REP Gender Identity Female 08/02/2019 9:59 AM CDT [...] on filedocumented in this encounter Care Teams Double End Chucking Machine Operator Relationship Specialty Start Date End Date Matt Painting MD [address] [facility] [address] [place] [address] PCP - General 05/31/16 12/08/19 Shanna Oakes NP [address] [facility] [address] [place] [address] PCP - General Internal Medicine 12/09/19 07/21/24 Tracy Hernández NP [address] [facility] [address] [place] [address] PCP - General Family Medicine 07/22/24 Tyesha Abarca DPT Physical Therapist Physical Therapy 04/30/17 02/08/18 Yesi Cook DPT Physical Therapist Physical Therapy 07/30/17 03/06/20 Renetta Pearl MA [address] [facility] [address] [place] [address] ACO Care Auto Body Repair Technician 12/15/17 12/31/17 Vernon Hernandez, OPHELIA [address] [facility] [address] [place] [address] Research Professor Of Biostatistics 01/01/18 02/11/18 Vernon Hernandez RN [address] [facility] [address] [place] [address] CJR Outpatient Tuber Helper 07/20/18 10/15/18 Renetta Pearl MA [address] [facility] [address] [place], [place] [id number] ACO Care Auto Body Repair Technician 07/21/18 07/21/18 documented as of this encounter
--- OUTSIDE RECORDS SUMMARY | 2024-08-03 12:43 | XMS_ITS | Encounter Summary ---
Author Organization [facility] Healthcare Address [address] [place] [address] Care Team Providers Care Slip Seat Coverer Name Role Phone Yesi Cook DPT Unavailable Unavailable Shanna Oakes NP Primary Care Provider [phone] Tracy Hernández CAN FILLING AND CLOSING MACHINE TENDER Primary Care Provider Encounter Details Date Type Department Care Team (Late st Contact Info) Description 12/28/2019 Telephone [facility] [address] [place] [id number] Melanie Del Rio, Social History Tobacco Use [...] on file Legal Sex Female 11:38 PM BROADCASTER Gender Identity Female 08/02/2019 9:59 AM CDT Sexual Orientation Straight 06/03/2018 6: 51 PM CDT documented as of this encounter Plan of Treatment Not on file documented as of this encounter Visit Diagnoses Not on filedocumented in this encounter Care Teams Slip Seat Coverer Relationship Specialty Start Date End Date Shanna Oakes NP PCP - General Internal Medicine 12/09/19 07/21/24 Tracy Hernández NP [address] [address] PCP - General Family Medicine 07/22/24 Yesi Cook, VENITAT Physical Therapist Physical Therapy 07/30/17 03/06/20 documented as of this encounter
--- OUTSIDE RECORDS SUMMARY | 2024-08-03 12:43 | XMS_ITS | Encounter Summary ---
Author Organization [facility] Address [address] [place] [address] Phone Care Team Providers Care Field Service Poultry Technician Name Role Phone Matt Painting MD Primary Care Provider [phone] Tyesha Abarca DPT Unavailable Unavailable Yesi Cook DPT Unavailable Unavailable Renetta Pearl MA Unavailable [phone] Vernon Hernandez RN Unavailable [phone] Vernon Hernandez RN Unavailable [phone] Renetta Pearl MA Unavailable [phone] Shanna Oakes EPIDEMIOLOGIST Primary Care Provider [phone] Tracy Hernández EPIDEMIOLOGIST Primary Care Provider [phone] Encounter Details Date Type Department Care Team (Late st Contact Info) Description 04/15/2017 Orders Only [facility] ProviderChente MD [facility] [place] [address] Social History Tobacco Use Types Packs/Day Years Used Date Smoking Tobacco: Never Smokeless Tobacco: Never Alcohol Use Standard Drinks/Week Comments No 0 (1 standard drink = 0.6 oz pur e alcohol) Comments Unknown Sex and Gender Information Value Date Recorded Sex Assigned at Not on file Legal Sex Female 11:38 PM SPOT CLEANER Gender Identity Female 08/02/2019 9:59 AM CDT Sexual Orientation Straight 06/03/2018 6: 51 PM CDT documented as of this encounter Plan of Treatment Not on file documented as of this encounter Procedures Procedure Name Priority Date/Time Associated Diagnosis Comments DISCHARGE LABORATORY CUMULATIVE REPORT 04/15/2017 12:00 AM SPOT CLEANER documented in this encounter Results * DISCHARGE LABORATORY CUMULATIVE REPORT (04/15/2017 12:00 AM SPOT CLEANER) Narrative 04/15/2017 12:00 AM SPOT CLEANER Ordered by an unspecified provider. us Historical Provider LAB BLOOD ORDERABLES Arline l Result documented in this encounter Visit Diagnoses Not on filedocumented in this encounter Care Teams Field Service Poultry Technician Relationship Specialty Start Date End Date Matt Painting MD [address] [facility] [address] [place] [address] PCP - General 05/31/16 12/08/19 Shanna Oakes NP [address] [place] [address] [address] [place] [address] PCP - General Internal Medicine 12/09/19 07/21/24 Tracy Hernández NP [address] [facility] [address] [place] [address] PCP - General Family Medicine 07/22/24 Tyesha Abarca DPT Physical Therapist Physical Therapy 04/30/17 02/08/18 Yesi Cook DPT Physical Therapist Physical Therapy 07/30/17 03/06/20 Renetta Pearl MA [address] [place] [address] [address] [place] [address] ACO Care Presser Machine 12/15/17 12/31/17 Vernon Hernandez, OPHELIA [address] [place] [address] [address] [place] [address] Objects Conservator 01/01/18 02/11/18 Vernon Hernandez RN [address] [facility] [address] [place], [place] [id number] CJR Outpatient Sole Rougher 07/20/18 10/15/18 Renetta Pearl MA [address] [facility] [address] [place], [place] [id number] ACO Care Presser Machine 07/21/18 07/21/18 documented as of this encounter
--- OUTSIDE RECORDS SUMMARY | 2024-08-03 12:43 | XMS_ITS | Encounter Summary ---
Author Organization [facility] Healthcare Address [address] [place] [address] Care Team Providers Care Towel Weaver Name Role Phone Tracy Hernández NP Primary Care Provider [phone] Reason for Visit * Reason Onset Date Comments Medical Question/Miscellaneous 07/22/2024 Encounter Details Date Type Department Care Team (Late st Contact Info) Description 07/22/2024 Telephone [facility] [address] [facility] [address] [place] [id number] Shanna Oakes NP [address] [facility] [address] [address] Medical Question/Miscellaneous Social History Tobacco [...] on file Legal Sex Female 11:38 PM BEAVER TRAPPER Gender Identity Female 08/02/2019 9:59 AM CDT Sexual Orientation Straight 06/03/2018 6: 51 PM CDT documented as of this encounter Miscellaneous Notes * Telephone Encounter - Shanna Oakes NP - 07/22/2024 1:25 PM CDT Noted. * Telephone Encounter - Betty Thurston - 07/22/2024 10:37 AM CDT Medical Question/Miscellaneous. Caller???s Concern: Patient is calling to give a message to HEAVY FORGER HELPER Shanna Oakes. She stated I cannot get current dependable transportation to [place]. I have switched to Dr. Hernández through [facility] in [place]. I am sorry I had to change. I love you. Thank you. Does message need to be routed? Yes-Action Needed documented in this encounter Plan of Treatment Not on file documented as of this encounter Visit Diagnoses Not on filedocumented in this encounter Care Teams Towel Weaver Relationship Specialty Start Date End Date Tracy Hernández NP [address] [address] PCP - General Family Medicine 07/22/24 documented as of this encounter
--- OUTSIDE RECORDS SUMMARY | 2024-08-03 12:43 | XMS_ITS | Encounter Summary ---
Author Organization [facility] Healthcare Address [address] [place] [address] Care Team Providers Care Bag Adjuster Name Role Phone Matt Painting MD Primary Care Provider [phone] Yesi Cook DPT Unavailable Unavailable Vernon Hernandez RN Unavailable [phone] Renetta Pearl MA Unavailable Shanna Oakes DISPENSARY ATTENDANT Primary Care Provider [phone] Tracy Hernández DISPENSARY ATTENDANT Primary Care Provider [phone] Encounter Details Date Type Department Care Team (Late st Contact Info) Description 06/24/2018 Documentation [facility] Case Management [address] [place] [id number] Opal Marsh MSW Social History Tobacco Use Types Packs/Day Years Used Date Smoking Tobacco: Never Smokeless Tobacco: Never Alcohol Use Standard Drinks/Week Comments No 0 (1 standard drink = 0.6 oz pur e alcohol) Comments No Sex and Gender Information Value Date Recorded Sex Assigned at Not on file Legal Sex Female 11:38 PM CLASSROOM MONITOR Gender Identity Female 08/02/2019 9:59 AM CDT [...] [facility] a [facility] in [place]. Pt informed that the referral will be sent upon admission for placement if PT recs SNF. SW will followafter surgery. documented in this encounter Plan of Treatment Not on file documented as of this encounter Visit Diagnoses Not on filedocumented in this encounter Care Teams Bag Adjuster Relationship Specialty Start Date End Date Matt Painting MD [address] [facility] [address], [place] [address] PCP - General 05/31/16 12/08/19 Shanna Oakes NP [address] [place] [address] [address] [place] [address] PCP - General Internal Medicine 12/09/19 07/21/24 Tracy Hernández NP [address] [facility] [address] [place] [address] PCP - General Family Medicine 07/22/24 Yesi Cook DPT Physical Therapist Physical Therapy 07/30/17 03/06/20 Vernon Hernandez RN [address] [place], [place] [address] [address] CJR Outpatient Asbestos Abatement Technician 07/20/18 10/15/18 Renetta Pearl, SONIA [address] [place] [address] ACO Care Spray Mixer 07/21/18 07/21/18 documented as of this encounter
--- OUTSIDE RECORDS SUMMARY | 2024-08-03 12:44 | XMS_ITS | Referral Summary ---
Author Organization [facility] Address [address] [place] [address] Care Team Providers Care Umbrella Mender Name Role Phone Tracy Hernández NP Primary Care Provider [phone] Encounters Date Type Department Care Team Description 08/02/2024 Nurse Triage [facility] Medical [facility] Primary Care at [address] [address] Tracy Hernández NP 07/23/2024 Results Follow-Up [facility] Primary Care at [address] [address] Tracy Hernández NP Comprehensive metabolic panel, Thyroid Function [place], Hemoglobin A1c, Additional followed-up results: 8 07/22/2024 10:12 AM CDT - 07/22/2024 11:59 PM CDT Hospital Encounter [facility] [address] [place] [address] Hypertensive renal disease; Acquired hypothyroidism; Elevated glucose; Hypercholesterolemia Discharge Disposition: Discharge to home or self care 07/22/2024 Telephone [facility] [address] [address] Shanna Oakes NP Medical Question/Miscellaneous 07/22/2024 10:15 AM CDT Lab [facility] Outpatient Lab at [address] [address] 07/22/2024 9:30 AM CDT Office Visit [facility] Primary Care at [address] [address] Tracy Hernández NP Acquired hypothyroidism (Primary Dx); Hypertensive renal disease; Hypercholesterolemia; Elevated glucose; Gastroesophageal reflux disease without esophagitis; Stage 3a chronic kidney disease (HCC); Generalized anxiety disorder with panic attacks; Major depression single episode, in partial remission; Primary insomnia 07/05/2024 Telephone [facility] [address] [place] [phone] Shanna Oakes NP Referral Request from [...] 1 tablet (100 mcg total) by mouth slip tender before breakfast 90 tablet 5 Active acetaminophen- [...] zolpidem. Assessment & Plan (03/30/2024 12:53 PM CHUCKING LATHE OPERATOR): Stable, continue Zolpidem Assessment & Plan (12/29/2023 1:26 PM CDT): Worse. Will switch to an ER Zolpidem. Dermatochalasis of both upper eyelids 10/15/2022 Assessment & Plan (10/16/2023 4:47 PM CDT): Pt not bothered, monitor Assessment & Plan (10/15/2022 12:55 PM CDT): Not v/s, monitor Atherosclerosis of aorta 05/09/2022 Overview (05/09/2022): 05/09/21- xray Assessment & Plan (03/30/2024 12:52 PM CHUCKING LATHE OPERATOR): Stable, continue aspirin and Atorvastatin Assessment & Plan (09/16/2023 10:46 AM CDT): Stable, continue Atorvastatin and aspirin. Assessment & Plan (01/13/2023 10:31 AM CHUCKING LATHE OPERATOR): Stable, continue aspirin and Atorvastatin Encounter for Medicare annual wellness exam 05/02 Assessment & Plan (03/30/2024 12:49 PM CHUCKING LATHE OPERATOR): Please see below for a list of your medical conditions and recommendations. Assessment & Plan (01/13/2023 10:30 AM CHUCKING LATHE OPERATOR): Please see below for a list of [...] 020 Assessment & Plan (03/30/2024 12:53 PM CHUCKING LATHE OPERATOR): Stable, continue aspirin and Atorvastatin Assessment & Plan (09/16/2023 10:47 AM CDT): Stable, continue Atorvastatin and aspirin Assessment & Plan (01/13/2023 10:32 AM CHUCKING LATHE OPERATOR): Stable, continue aspirin and Atorvastatin Assessment & Plan (01/03/2022 1:32 PM CDT): Stable, continue aspirin and Atorvastatin. Assessment & Plan (05/03/2021 11:10 AM CHUCKING LATHE OPERATOR): Stable, continue Atorvastatin and aspirin Assessment & [...] UTI Assessment & Plan (04/15/2017 12:43 PM CHUCKING LATHE OPERATOR): Having increased urinary frequency but no pain, feels similar to UTIs in the past. UA today with just trace blood, negative for leuks and nitrites Advised to keep hydrated and will send UA for culture BMI 28.0-28.9,adult 04/15/2017 Assessment & Plan (10/08/2017 11:47 AM CDT): Try to cut back on calories. Most people should eat between 1680-9210 calories to lose weight. Decrease your carbohydrate [...] help. Assessment & Plan (04/15/2017 11:14 AM CHUCKING LATHE OPERATOR): BMI Follow-up includes: nutrition counseling and exercise [...] management. Assessment & Plan (05/03/2021 11:10 AM CHUCKING LATHE OPERATOR): Stable, continue Gabapentin and Duloxetine Assessment & Plan (12/19/2019 7:35 PM CDT): Stable, continue duloxetine Assessment & Plan (06/14/2019 8:10 AM CDT): Requires chronic duloxetine and gabapentin therapy. Does see pain management at times. Assessment & Plan (04/15/2017 12:40 PM CHUCKING LATHE OPERATOR): Improved and using lidocaine patches which help. Suspect this is more from bulging disc than it is from UTI and patient agrees. Major depression single episode, in partial amanda ssion 08/28/2016 Assessment & Plan (03/30/2024 12:53 PM CHUCKING LATHE OPERATOR): Stable, continue Duloxetine Assessment & Plan (12/29/2023 1:26 PM CDT): Stable, continue Duloxetine Assessment & Plan (01/13/2023 10:33 AM CHUCKING LATHE OPERATOR): Stable, continue Duloxetine Assessment & Plan (09/10/2022 3:17 PM CDT): Improved. Continue Duloxetine Assessment & Plan (05/03/2022 2:59 PM CHUCKING LATHE OPERATOR): Stable, continue Duloxetine Assessment & Plan (01/03/2022 1:30 PM CDT): Intermittent. Continue Duloxetine. Assessment & Plan (05/03/2021 11:09 AM CHUCKING LATHE OPERATOR): Chronic and unchanged. Continue Duloxetine Assessment & [...] Duloxetine Assessment & Plan (02/16/2018 1:25 PM CHUCKING LATHE OPERATOR): Doing well with the clonazepam and duloxetine Assessment & Plan (04/15/2017 12:42 PM CHUCKING LATHE OPERATOR): Still teary in the room over the [...] disease Assessment & Plan (03/30/2024 12:49 PM CHUCKING LATHE OPERATOR): The blood pressure is adequately controlled. Ideally, [...] way. Assessment & Plan (01/13/2023 10:30 AM CHUCKING LATHE OPERATOR): The blood pressure is adequately controlled. Ideally, [...] way. Assessment & Plan (05/03/2022 2:57 PM CHUCKING LATHE OPERATOR): The blood pressure is adequately controlled. Ideally, [...] way. Assessment & Plan (05/03/2021 11:08 AM CHUCKING LATHE OPERATOR): The blood pressure is adequately controlled. Ideally, [...] Hypothyroidism Assessment & Plan (03/30/2024 12:50 PM CHUCKING LATHE OPERATOR): Stable, continue levothyroxine Assessment & Plan (12/29/2023 1:24 PM CDT): Stable, continue levothyroxine Assessment & Plan (09/16/2023 10:46 AM CDT): Stable? Will recheck today. Assessment & Plan (01/13/2023 10:31 AM CHUCKING LATHE OPERATOR): Stable, continue levothyroxine. Assessment & Plan (09/10/2022 3:15 PM CDT): Stable? Will recheck today. Assessment & Plan (05/03/2022 2:57 PM CHUCKING LATHE OPERATOR): Stable? Will recheck today. Assessment & Plan (01/03/2022 1:24 PM CDT): Stable, continue levothyroxine Assessment & Plan (05/03/2021 11:08 AM CHUCKING LATHE OPERATOR): Stable? Continue levothyroxine. Assessment & Plan (11/08/2020 [...] stable, reviewed previous lipid levels in [facility]. Continue statin therapy. Lipitor (atorvastatin) Order for lipid panel was given today to be obtained. Pt voiced understanding of lab drawn and continuation of current medication regimen. Assessment & Plan (03/30/2024 12:49 PM CHUCKING LATHE OPERATOR): Continue low fat eating- limit fried foods, [...] prescribed. Assessment & Plan (01/13/2023 10:30 AM CHUCKING LATHE OPERATOR): Continue low fat eating- limit fried foods, [...] prescribed. Assessment & Plan (05/03/2022 2:58 PM CHUCKING LATHE OPERATOR): Continue low fat eating- limit fried foods, [...] day. Assessment & Plan (05/03/2021 11:09 AM CHUCKING LATHE OPERATOR): Continue low fat eating- limit fried foods, [...] attacks Assessment & Plan (03/30/2024 1:37 PM CHUCKING LATHE OPERATOR): Not controlled, continue Lorazepam as needed Assessment & Plan (01/13/2023 10:32 AM CHUCKING LATHE OPERATOR): Stable, continue Duloxetine and Lorazepam as needed. Assessment & Plan (09/10/2022 3:18 PM CDT): Improved. Continue Duloxetine and uses Lorazepam as needed. Try not take this medication daily or longterm is at all possible as it can lead to dependence/addiction/tolerance, memory issues and may cause depression polisher brass. Keep this medication out of the reach of other people. Do not drive or drink alcohol with this medication. Assessment & Plan (05/03/2022 3:00 PM CHUCKING LATHE OPERATOR): Chronic and unchanged. Continue Lorazepam as needed. Assessment & Plan (01/03/2022 1:31 PM CDT): Stable, continue Lorazepam as needed Assessment & Plan (11/08/2020 5:25 PM CDT): Stable, continue Clonazepam Assessment & Plan (05/22/2020 8:01 PM CDT): Stable, continue Clonazepam as needed. Do not take this medication daily or longterm is at all possible as it can lead to dependence/addiction/tolerance, memory issues and may cause depression longterm. Keep this medication out of the reach [...] disease) Assessment & Plan (03/30/2024 12:53 PM CHUCKING LATHE OPERATOR): Try to eat smaller more frequent meals. [...] weight. Assessment & Plan (01/13/2023 10:32 AM CHUCKING LATHE OPERATOR): Try to eat smaller more frequent meals. [...] weight. Assessment & Plan (05/03/2022 2:59 PM CHUCKING LATHE OPERATOR): Try to eat smaller more frequent meals. [...] weight. Assessment & Plan (05/03/2021 11:09 AM CHUCKING LATHE OPERATOR): Try to eat smaller more frequent meals. [...] today. Assessment & Plan (03/30/2024 12:53 PM CHUCKING LATHE OPERATOR): Continue to increase water intake. Limit use [...] weight. Assessment & Plan (01/13/2023 10:32 AM CHUCKING LATHE OPERATOR): Continue to increase water intake. Limit use of NSAIDs including Ibuprofen, Aleve, Motrin, etc. Continue aerobic exercise and maintain a healthy weight. Assessment & Plan (09/10/2022 3:20 PM CDT): Continue to increase water intake. Limit use of NSAIDs including Ibuprofen, Aleve, Motrin, etc. Continue aerobic exercise and maintain a healthy weight. Assessment & Plan (05/03/2022 3:00 PM CHUCKING LATHE OPERATOR): Continue to increase water intake. Limit use of NSAIDs including Ibuprofen, Aleve, Motrin, etc. Continue aerobic exercise and maintain a healthy weight. Assessment & Plan (01/03/2022 1:31 PM CDT): Continue to increase water intake. Limit use of NSAIDs including Ibuprofen, Aleve, Motrin, etc. Continue aerobic exercise and maintain a healthy weight. Assessment & Plan (05/03/2021 11:10 AM CHUCKING LATHE OPERATOR): Continue to increase water intake. Limit use [...] (06/12/2018): Added automatically from request for surgery [id number] Encounter for weight management 06/05/2018 07/22/2024 Dyslipidemia [...] needed Assessment & Plan (04/10/2018 4:07 PM CHUCKING LATHE OPERATOR): The patient has done very well overall [...] x-rays. Assessment & Plan (02/18/2018 11:58 AM CHUCKING LATHE OPERATOR): Treatment options were discussed. The patient would [...] on calories. Most people should eat between 8591-6183 calories to lose weight. Decrease your carbohydrate [...] on calories. Most people should eat between 5319-0721 calories to lose weight. Decrease your carbohydrate [...] 07/22/2024 Assessment & Plan (04/15/2017 12:41 PM CHUCKING LATHE OPERATOR): Will do ambulatory PT as she is [...] on file Legal Sex Female 11:38 PM CHUCKING LATHE OPERATOR Gender Identity Female 08/02/2019 9:59 AM CDT [...] on file Medical Devices Implanted Type Area Spectroscopist Device Identifier Shelf Expiration Date Model / Serial / Lot [employer] 6191-1-010 Simplex P Radiopaque Full Dose Cement Bone Sterile - [id number] Implanted:Qty: 1 on 07/15/2018 by Irving Mccauley MD at [facility] Bone Cement Left: Knee [employer] 07/31/2020 6191-1-010 / / [id number] [employer] 6191-1-010 Simplex P Radiopaque Full Dose Cement Bone Sterile - [id number] Implanted:Qty: 1 on 07/15/2018 by Irving Mccauley MD at [facility] Bone Cement Left: Knee [employer] 07/31/2020 6191-1-010 / / [id number] Baseplate Shoulder 15mm Length - [id number] Implanted:Qty: 1 on 12/10/2017 by Tayo Murray DO at [facility] Right: Shoulder [employer] Rhea 09/30/2022 GBP-0960-0 30-15 / / [id number] Screw 5.5mm 20mm Length Shoulder - [id number] Implanted:Qty: 1 on 12/10/2017 by Tayo Murray DO at [facility] Right: Shoulder [employer] Rhea 07/29/2022 SCW-0960-0 55-20 / / [id number] Screw And Cap 4.5mm 15mm Shoulder - [id number] Implanted:Qty: 2 on 12/10/2017 by Tayo Murray DO at [facility] Right: Shoulder [employer] Rhea 08/28/2020 SSC-0960-0 45-15 / / [id number] Screw And Cap 4.5mm 20mm Shoulder - [id number] Implanted:Qty: 1 on 12/10/2017 by Tayo Murray DO at [facility] Right: Shoulder [employer] R[employer] 06/01/2022 SSC-0960-0 45-20 / / [id number] Screw And Cap 4.5mm 25mm Shoulder - [id number] Implanted:Qty: 1 on 12/10/2017 by Tayo Murray DO at [facility] Right: Shoulder [employer] Rhea 05/30/2022 SSC-0960-0 45-25 / / [id number] Glenosphere Shoulder 5mm Eccentric - [id number] Implanted:Qty: 1 on 12/10/2017 by Tyao Murray DO at [facility] Right: Shoulder [employer] Rhea 11/30/2021 GLS-0960-0 5E / / [id number] [employer] Rhea [id number] 1 Titan 16.5mm 12.1mm 90.4mm Press Fit 12 Spline Modular - [id number] Implanted:Qty: 1 on 12/10/2017 by Tayo Murray DO at [facility] Right: Shoulder [employer] Rhea 09/30/2021 STEM-0920- 025-11 / / [id number] Body Shoulder Small Reverse [id number]-6524-00bup - [id number] Implanted:Qty: 1 on 12/10/2017 by Tayo Murray DO at [facility] Right: Shoulder [employer] 04/02/2022 BBS-0960-2 1SML / / [id number] Liner +0mm 9.6mm Standard 20mm 2.7mm 38.7mm Shoulder Humeral - [id number] - [id number] Implanted:Qty: 1 on 12/10/2017 by Tayo Murray DO at [facility] Right: Shoulder [employer] R[employer] 04/30/2021 LNR-0960-0 0S / LNR-0960-0 0S / [id number] [employer]/O rtho [id number] Shannan Ii [id number] Knee Oval Component Patellar Uhmwpe - [id number] Implanted:Qty: 1 on 07/15/2018 by Irving Mccauley MD at [facility] Left: Knee [employer]/ Ortho [id number] 04/25/2028 [id number] / / [id number] [employer]/O rtho [id number] Journey Knee Left 3 Baseplate Tibial - [id number] Implanted:Qty: 1 on 07/15/2018 by Irving Mccauley MD at [facility] Left: Knee [employer]/ Ortho [id number] 09/23/2027 [id number] / / [id number] [employer]/O rtho [id number] Journey Ii Cruciate Retain Knee Left 4 Component Femoral Cocr - [id number] Implanted:Qty: 1 on 07/15/2018 by Irving Mccauley MD at [facility] Left: Knee [employer]/ Ortho [id number] 12/06/2027 [id number] / / [id number] [employer]/O rtho [id number] Journey Ii Left 3-4 Deep [facility] Insert Articular Xlpe - [id number] Implanted:Qty: 1 on 07/15/2018 by Irving Mccauley MD at [facility] Left: Knee [employer]/ Ortho [id number] 03/09/2026 [id number] / / [id number] Explanted Type Area Spectroscopist Device Identifier Shelf Expiration Date Model / Serial / Lot [employer] [id number] 2mm 150mm Elbow Shoulder Guide Pin Orthopedic - [id number] Explanted:Qty: 2 on 12/10/2017 at [facility] Right: Shoulder [employer] [id number] / / Procedures Procedure Name Priority [...] NP LAB BLOOD ORDERABLES Final Re sult [facility] [id number] Department [place] [address] * (ABNORMAL) Differential, auto (07/22/2024 10:12 AM CDT) Neutrophil abs 4.47 1.50 - 6.50 K/cumm Imm gran abs 0.03 0.00 - 0.10 K/cumm [facility] Lymphocyte abs 2.26 0.80 - 3.30 K/cumm [facility] Monocyte abs 0.86(H) 0.20 - 0.80 K/cumm [facility] Eosinophil abs 0.16 0.00 - 0.50 K/cumm [facility] Basophil abs 0.05 0.00 - 0.10 K/cumm [facility] Neutrophil pct 57.1 % [facility] Comment: Interpretive Data Percent cell count reference ranges are not reported, since discordance with absolute values may lead to misinterpretation of CBC data. Current Interpretive Data was last revised on 2017. Imm gran pct 0.4 % [facility] Comment: Interpretive Data Percent cell count reference ranges are not reported, since discordance with absolute values may lead to misinterpretation of CBC data. Current Interpretive Data was last revised on 2017. Lymphocyte pct 28.9 % [facility] Comment: Interpretive Data Percent cell count reference ranges are not reported, since discordance with absolute values may lead to misinterpretation of CBC data. Current Interpretive Data was last revised on 2017. Monocyte pct 11.0 % [facility] Comment: Interpretive Data Percent cell count reference ranges are not reported, since discordance with absolute values may lead to misinterpretation of CBC data. Current Interpretive Data was last revised on 2017. Eosinophil pct 2.0 % [facility] Comment: Interpretive Data Percent cell count reference ranges are not reported, since discordance with absolute values may lead to misinterpretation of CBC data. Current Interpretive Data was last revised on 2017. Basophil pct 0.6 % [facility] Comment: Interpretive Data Percent cell count reference ranges are not reported, since discordance with absolute values may lead to misinterpretation of CBC data. Current Interpretive Data was last revised on 2017. Blood 07/22/2024 10:1 2 AM CDT 07/22/2024 9:19 PM CDT Tracy Hernández NP LAB BLOOD ORDERABLES Final Re sult Performing Organization Address [facility] Co de Phone Number AAMIR ALAS [address] Department [place], [place] [id number] * (ABNORMAL) Thyroid Function [place] (07/22/2024 10:12 AM CDT) TSH 20.00(H) 0.30 - 4.20 mcIUnit/mL Blood 07/22/2024 10:1 2 AM CDT 07/22/2024 9:19 PM CDT Tracy Hernández NP LAB BLOOD ORDERABLES Final Re sult Performing Organization Address City/[facility] Co de Phone Number AAMIR ALAS [address] [place] [address] * (ABNORMAL) Urinalysis reflex to microscopic and [...] for uric acid stone formation. Source: [facility] Current Interpretive Data was last revised on [...] - GENERAL OR DERABLES Final Result CERNER [address] [place] [address] * (ABNORMAL) CBC with auto differential (07/22/2024 [...] NRBC abs 0.00 0.00 - 0.01 K/cumm [facility] Blood 07/22/2024 10:1 2 AM CDT 07/22/2024 9:19 PM CDT Tracy Hernández CRUSHING FOREMAN LAB BLOOD ORDERABLES Final Re sult Performing Organization Address [facility] Co de Phone Number AAMIR [address] [address] [place] [address] * (ABNORMAL) Urinalysis, microscopic only (07/22/2024 10:12 AM CDT) WBC, ur >50(A) 0 - 5 /HPF RBC, ur 21-50(A) 0 - 2 /HPF [facility] Bacteria, ur 4+(A) CERNER CH Amorphous crystals, ur 1+(A) [facility] Culture Reflex Comment Reflex to urine culture will be performed. [facility] Urine, clean voided 07/22/2024 10:12 AM CDT 07/22/2024 9:19 PM CDT Tracy Hernández NP LAB URINE ORDERABLES Final Re sult Performing Organization Address [facility] de Phone Number AAMIR [address] [address] Department of [place], [place] [id number] * (ABNORMAL) Urine culture Urine, clean voided (07/22/2024 10:12 AM CDT) Report Final Report: Greater than or equal to 100,000 colonies/mL of Escherichia coli Plus growth of clinically insignificant bacterial lashonda. (.) Comment:Testing performed by : [facility], [address], [place]., [address] Organism [facility] Organism PLUS GROWTH OF CLINICALLY INSIGNIFICANT LASHONDA. [facility] Urine, clean voided 07/22/2024 10:12 AM CDT 07/23/2024 2:19 AM CDT Narrative AAMIR ALAS - 07/25/2024 12:17 PM CDT Urine culture reflexed based upon urinalysis results. Testing performed by [facility] Laboratory ([phone]) Organism Antibiotic Method Susceptibility Escherichia coli Ampicillin [...] OR DERABLES Final Result Performing Organization Address [facility] Co de Phone Number AAMIR [address] [address] Department [place] [address] * T4, free (07/22/2024 10:12 AM CDT) Free T4 1.09 0.90 - 1.70 ng/dL Blood 07/22/2024 10:1 2 AM CDT 07/22/2024 9:30 PM CDT Tracy Hernández NP LAB BLOOD ORDERABLES Final Re sult Performing Organization Address [facility] Co de Phone Number AAMIR [address] [address] [place] [address] * (ABNORMAL) Hemoglobin A1c (07/22/2024 10:12 AM CDT) Hgb A1C 5.9(H) 4.0 - 5.6 % Estimated Average Glucose 123 mg/dL AAMIR ALAS Comment: The ADA recommends reporting an estimated Average Glucose (eAG) with all Hemoglobin A1c results using the equation derived from a study of 507 normal and diabetic adults. Minority populations were underrepresented and children were not included. (Diabetes Care 31:3766-5193, 2008). The eAG is not equivalent to a fasting glucose. Blood 07/22/2024 10:1 2 AM CDT 07/22/2024 9:19 PM CDT us Tracy Hernández NP LAB BLOOD ORDERABLES Final Re sult AAMIR [address] [address] [place] [address] * (ABNORMAL) Lipid panel (07/22/2024 10:12 AM [...] revised on 2017. Chol/HDL ratio 3 AAMIR LAAS Blood 07/22/2024 10:1 2 AM CDT 07/22/2024 9:19 PM CDT Tracy Hernández CRUSHING FOREMAN LAB BLOOD ORDERABLES Final Re sult [facility] [address] [address] [place] [address] * Comprehensive metabolic panel (07/22/2024 10:12 AM [...] BLOOD ORDERABLES Final Re sult AAMIR ALAS [address] [address] [place] [address] * Dexa Axial Skeleton Bone Density 1 [...] to Health Maintenance Insurance MEDICARE COMMERCIAL GENERIC IDND MEDICARE COMMERCIAL GENERIC MEDICARE COMMERCIAL GENERIC Advance Directives For more information, please contact: [phone] Documents on File Type Date Recorded Patient General Dentist Expl anation ADVANCE DIRECTIVE 08/20/2019 2:35 PM Power of Pattern Grader C[employer] ADVANCE DIRECTIVE 07/15/2018 11:14 AM ADVANCE DIRECTIVE [...] 3:25 PM 12/13/2017 4:26 PM Care Teams Umbrella Mender Relationship Specialty Start Date End Date Tracy Hernández NP [address] [address] PCP - General Family Medicine 07/22/24
--- OUTSIDE RECORDS SUMMARY | 2024-08-03 12:44 | XMS_ITS | Encounter Summary ---
Author Organization [facility] Address [address] [place] [address] Care Team Providers Care President [place] Name Role Phone Shanna Oakes NP Primary Care Provider [phone] Tracy Hernándze UNDERWATER WELDER Primary Care Provider [phone] Encounter Details Date Type Department Care Team (Late st Contact Info) Description 12/20/2020 Telephone [facility] - Interventional Radiology [address] [place] [address] Juanis Mejia RN Social History [...] on file Legal Sex Female 11:38 PM CORRECTIONS SPECIALIST Gender Identity Female 08/02/2019 9:59 AM CDT Sexual Orientation Straight 06/03/2018 6: 51 PM CDT documented as of this encounter Plan of Treatment Not on file documented as of this encounter Visit Diagnoses Not on filedocumented in this encounter Care Teams President [place] Relationship Specialty Start Date End Date Shanna Oakes NP PCP - General Internal Medicine 12/09/19 07/21/24 Tracy Hernández NP [address] [address] PCP - General Family Medicine 07/22/24 documented as of this encounter
--- OUTSIDE RECORDS SUMMARY | 2024-08-03 12:44 | XMS_ITS | Encounter Summary ---
Author Organization [facility] Healthcare Address [address] [place] [address] Care Team Providers Care Auto Tune Up Mechanic Name Role Phone Tracy Hernández NP Primary Care Provider [phone] Reason for Visit * Reason Onset Date Comments Dysuria 08/02/2024 IV Antibiotics 08/02/2024 Encounter Details Date Type Department Care Team (Late st Contact Info) Description 08/02/2024 Nurse Triage [facility] Medical Group Primary Care at [address] [address] Tracy Hernández NP [address] [place] [address] [address] [place] [address] Social History Tobacco Use Types [...] on file Legal Sex Female 11:38 PM FINANCIAL ADVISOR TRAINEE Gender Identity Female 08/02/2019 9:59 AM CDT [...] AM CDT Medical Question/Miscellaneous Caller???s Concern: Yeimy, curing room worker with the [facility], calling in to get further clarification on instructions for patient to go to the ED. Warm transferred. Does message need to be routed? No Reason for Warm Transfer: Symptoms: Patient has Red flag symptoms, stock shaper evaluated patient and directed patient to call [...] Tract Infection on Antibiotic Follow-up Call - [id number] * Telephone Encounter - Odette Zimmer RN [...] on filedocumented in this encounter Care Teams Auto Tune Up Mechanic Relationship Specialty Start Date End Date Tracy Hernández NP [address] [address] PCP - General Family Medicine 07/22/24 documented as of this encounter
--- OUTSIDE RECORDS SUMMARY | 2024-08-03 12:44 | XMS_ITS | Encounter Summary ---
Author Organization [facility] Healthcare Address [address] [place] [address] Care Team Providers Care Supervisor Harvesting Name Role Phone Matt Painting MD Primary Care Provider [phone] Tyesha Abarca DPT Unavailable Unavailable Yesi Cook DPT Unavailable Unavailable Renetta Pearl MA Unavailable [phone] Vernon Hernandez RN Unavailable [phone] Vernon Hernandez RN Unavailable [phone] Renetta Pearl MA Unavailable [phone] Shanna Oakes MEDICAL EDUCATION COORDINATOR Primary Care Provider [phone] Tracy Hernández MEDICAL EDUCATION COORDINATOR Primary Care Provider [phone] Encounter Details Date Type Department Care Team (Late st Contact Info) Description 11/28/2017 Documentation [facility] Case Management [address] [place] [address] Opal Marsh MSW Social History Tobacco Use Types Packs/Day Years Used Date Smoking Tobacco: Never Smokeless Tobacco: Never Alcohol Use Standard Drinks/Week Comments No 0 (1 standard drink = 0.6 oz pur e alcohol) Comments Unknown Sex and Gender Information Value Date Recorded Sex Assigned at Not on file Legal Sex Female 11:38 PM SUPERVISOR [employer] Gender Identity Female 08/02/2019 9:59 AM CDT [...] filedocumented in this encounter Care Teams Supervisor Harvesting Relationship Specialty Start Date End Date Matt Painting MD [address] [facility] [address], [place] [address] PCP - General 05/31/16 12/08/19 Shanna Oakes NP [address] [place] [address] [address] [place] [address] PCP - General Internal Medicine 12/09/19 07/21/24 Tracy Hernández NP [address] [facility] [facility] [address] [place] [address] PCP - General Family Medicine 07/22/24 Tyesha Abarca, KIMBERLY Physical Therapist Physical Therapy 04/30/17 02/08/18 Joyce, Yesi E., DPT Physical Therapist Physical Therapy 07/30/17 03/06/20 Renetta Pearl MA [address] [place] [address] [employer] Care Washing Machine Installer 12/15/17 12/31/17 Vernon Hernandez RN [address] [place] [address] [address] [place], [place] [id number] Varnish Blender 01/01/18 02/11/18 Vernon Hernandez RN [address] [place] [address] [address] [place], [place] [id number] [employer] Outpatient Newspaper Editor Managing 07/20/18 10/15/18 Renetta Pearl MA [address] [place] [address] ACO Care Washing Machine Installer 07/21/18 07/21/18 documented as of this encounter
--- OUTSIDE RECORDS SUMMARY | 2024-08-03 12:44 | XMS_ITS | Clinical Summary ---
Author Organization [facility] Address [address] [place] [address] Care Team Providers Care Concrete Pouring Supervisor Name Role Phone Tracy Hernández NP Primary Care Provider [phone] Allergies Active Allergy Reactions Criticality Noted Date [...] 1 tablet (100 mcg total) by mouth channel lip wetter before breakfast 90 tablet 5 Active acetaminophen- [...] zolpidem. Assessment & Plan (03/30/2024 12:53 PM VESSEL SCRAPPER HELPER): Stable, continue Zolpidem Assessment & Plan (12/29/2023 1:26 PM CDT): Worse. Will switch to an ER Zolpidem. Dermatochalasis of both upper eyelids 10/15/2022 Assessment & Plan (10/16/2023 4:47 PM CDT): Pt not bothered, monitor Assessment & Plan (10/15/2022 12:55 PM CDT): Not v/s, monitor Atherosclerosis of aorta 05/09/2022 Overview (05/09/2022): 05/09/21- xray Assessment & Plan (03/30/2024 12:52 PM VESSEL SCRAPPER HELPER): Stable, continue aspirin and Atorvastatin Assessment & Plan (09/16/2023 10:46 AM CDT): Stable, continue Atorvastatin and aspirin. Assessment & Plan (01/13/2023 10:31 AM VESSEL SCRAPPER HELPER): Stable, continue aspirin and Atorvastatin Encounter for Medicare annual wellness exam 05/02 Assessment & Plan (03/30/2024 12:49 PM VESSEL SCRAPPER HELPER): Please see below for a list of your medical conditions and recommendations. Assessment & Plan (01/13/2023 10:30 AM VESSEL SCRAPPER HELPER): Please see below for a list of [...] 020 Assessment & Plan (03/30/2024 12:53 PM VESSEL SCRAPPER HELPER): Stable, continue aspirin and Atorvastatin Assessment & Plan (09/16/2023 10:47 AM CDT): Stable, continue Atorvastatin and aspirin Assessment & Plan (01/13/2023 10:32 AM VESSEL SCRAPPER HELPER): Stable, continue aspirin and Atorvastatin Assessment & Plan (01/03/2022 1:32 PM CDT): Stable, continue aspirin and Atorvastatin. Assessment & Plan (05/03/2021 11:10 AM VESSEL SCRAPPER HELPER): Stable, continue Atorvastatin and aspirin Assessment & [...] UTI Assessment & Plan (04/15/2017 12:43 PM VESSEL SCRAPPER HELPER): Having increased urinary frequency but no pain, feels similar to UTIs in the past. UA today with just trace blood, negative for leuks and nitrites Advised to keep hydrated and will send UA for culture BMI 28.0-28.9,adult 04/15/2017 Assessment & Plan (10/08/2017 11:47 AM CDT): Try to cut back on calories. Most people should eat between 2377-5230 calories to lose weight. Decrease your carbohydrate [...] help. Assessment & Plan (04/15/2017 11:14 AM VESSEL SCRAPPER HELPER): BMI Follow-up includes: nutrition counseling and exercise [...] management. Assessment & Plan (05/03/2021 11:10 AM VESSEL SCRAPPER HELPER): Stable, continue Gabapentin and Duloxetine Assessment & Plan (12/19/2019 7:35 PM CDT): Stable, continue duloxetine Assessment & Plan (06/14/2019 8:10 AM CDT): Requires chronic duloxetine and gabapentin therapy. Does see pain management at times. Assessment & Plan (04/15/2017 12:40 PM VESSEL SCRAPPER HELPER): Improved and using lidocaine patches which help. Suspect this is more from bulging disc than it is from UTI and patient agrees. Major depression single episode, in partial amanda ssion 08/28/2016 Assessment & Plan (03/30/2024 12:53 PM VESSEL SCRAPPER HELPER): Stable, continue Duloxetine Assessment & Plan (12/29/2023 1:26 PM CDT): Stable, continue Duloxetine Assessment & Plan (01/13/2023 10:33 AM VESSEL SCRAPPER HELPER): Stable, continue Duloxetine Assessment & Plan (09/10/2022 3:17 PM CDT): Improved. Continue Duloxetine Assessment & Plan (05/03/2022 2:59 PM VESSEL SCRAPPER HELPER): Stable, continue Duloxetine Assessment & Plan (01/03/2022 1:30 PM CDT): Intermittent. Continue Duloxetine. Assessment & Plan (05/03/2021 11:09 AM VESSEL SCRAPPER HELPER): Chronic and unchanged. Continue Duloxetine Assessment & [...] Duloxetine Assessment & Plan (02/16/2018 1:25 PM VESSEL SCRAPPER HELPER): Doing well with the clonazepam and duloxetine Assessment & Plan (04/15/2017 12:42 PM VESSEL SCRAPPER HELPER): Still teary in the room over the [...] disease Assessment & Plan (03/30/2024 12:49 PM VESSEL SCRAPPER HELPER): The blood pressure is adequately controlled. Ideally, [...] way. Assessment & Plan (01/13/2023 10:30 AM VESSEL SCRAPPER HELPER): The blood pressure is adequately controlled. Ideally, [...] way. Assessment & Plan (05/03/2022 2:57 PM VESSEL SCRAPPER HELPER): The blood pressure is adequately controlled. Ideally, [...] way. Assessment & Plan (05/03/2021 11:08 AM VESSEL SCRAPPER HELPER): The blood pressure is adequately controlled. Ideally, [...] Hypothyroidism Assessment & Plan (03/30/2024 12:50 PM VESSEL SCRAPPER HELPER): Stable, continue levothyroxine Assessment & Plan (12/29/2023 1:24 PM CDT): Stable, continue levothyroxine Assessment & Plan (09/16/2023 10:46 AM CDT): Stable? Will recheck today. Assessment & Plan (01/13/2023 10:31 AM VESSEL SCRAPPER HELPER): Stable, continue levothyroxine. Assessment & Plan (09/10/2022 3:15 PM CDT): Stable? Will recheck today. Assessment & Plan (05/03/2022 2:57 PM VESSEL SCRAPPER HELPER): Stable? Will recheck today. Assessment & Plan (01/03/2022 1:24 PM CDT): Stable, continue levothyroxine Assessment & Plan (05/03/2021 11:08 AM VESSEL SCRAPPER HELPER): Stable? Continue levothyroxine. Assessment & Plan (11/08/2020 [...] are stable, reviewed previous lipid levels in [facility]. Continue statin therapy. Lipitor (atorvastatin) Order for lipid panel was given today to be obtained. Pt voiced understanding of lab drawn and continuation of current medication regimen. Assessment & Plan (03/30/2024 12:49 PM VESSEL SCRAPPER HELPER): Continue low fat eating- limit fried foods, [...] prescribed. Assessment & Plan (01/13/2023 10:30 AM VESSEL SCRAPPER HELPER): Continue low fat eating- limit fried foods, [...] prescribed. Assessment & Plan (05/03/2022 2:58 PM VESSEL SCRAPPER HELPER): Continue low fat eating- limit fried foods, [...] day. Assessment & Plan (05/03/2021 11:09 AM VESSEL SCRAPPER HELPER): Continue low fat eating- limit fried foods, [...] attacks Assessment & Plan (03/30/2024 1:37 PM VESSEL SCRAPPER HELPER): Not controlled, continue Lorazepam as needed Assessment & Plan (01/13/2023 10:32 AM VESSEL SCRAPPER HELPER): Stable, continue Duloxetine and Lorazepam as needed. Assessment & Plan (09/10/2022 3:18 PM CDT): Improved. Continue Duloxetine and uses Lorazepam as needed. Try not take this medication daily or terminal block assembler is at all possible as it can lead to dependence/addiction/tolerance, memory issues and may cause depression retirement. Keep this medication out of the reach of other people. Do not drive or drink alcohol with this medication. Assessment & Plan (05/03/2022 3:00 PM VESSEL SCRAPPER HELPER): Chronic and unchanged. Continue Lorazepam as needed. Assessment & Plan (01/03/2022 1:31 PM CDT): Stable, continue Lorazepam as needed Assessment & Plan (11/08/2020 5:25 PM CDT): Stable, continue Clonazepam Assessment & Plan (05/22/2020 8:01 PM CDT): Stable, continue Clonazepam as needed. Do not take this medication daily or terminal block assembler is at all possible as it can lead to dependence/addiction/tolerance, memory issues and may cause depression terminal block assembler. Keep this medication out of the reach [...] disease) Assessment & Plan (03/30/2024 12:53 PM VESSEL SCRAPPER HELPER): Try to eat smaller more frequent meals. [...] weight. Assessment & Plan (01/13/2023 10:32 AM VESSEL SCRAPPER HELPER): Try to eat smaller more frequent meals. [...] weight. Assessment & Plan (05/03/2022 2:59 PM VESSEL SCRAPPER HELPER): Try to eat smaller more frequent meals. [...] weight. Assessment & Plan (05/03/2021 11:09 AM VESSEL SCRAPPER HELPER): Try to eat smaller more frequent meals. [...] today. Assessment & Plan (03/30/2024 12:53 PM VESSEL SCRAPPER HELPER): Continue to increase water intake. Limit use [...] weight. Assessment & Plan (01/13/2023 10:32 AM VESSEL SCRAPPER HELPER): Continue to increase water intake. Limit use of NSAIDs including Ibuprofen, Aleve, Motrin, etc. Continue aerobic exercise and maintain a healthy weight. Assessment & Plan (09/10/2022 3:20 PM CDT): Continue to increase water intake. Limit use of NSAIDs including Ibuprofen, Aleve, Motrin, etc. Continue aerobic exercise and maintain a healthy weight. Assessment & Plan (05/03/2022 3:00 PM VESSEL SCRAPPER HELPER): Continue to increase water intake. Limit use of NSAIDs including Ibuprofen, Aleve, Motrin, etc. Continue aerobic exercise and maintain a healthy weight. Assessment & Plan (01/03/2022 1:31 PM CDT): Continue to increase water intake. Limit use of NSAIDs including Ibuprofen, Aleve, Motrin, etc. Continue aerobic exercise and maintain a healthy weight. Assessment & Plan (05/03/2021 11:10 AM VESSEL SCRAPPER HELPER): Continue to increase water intake. Limit use [...] (06/12/2018): Added automatically from request for surgery [id number] Encounter for weight management 06/05/2018 07/22/2024 Dyslipidemia [...] needed Assessment & Plan (04/10/2018 4:07 PM VESSEL SCRAPPER HELPER): The patient has done very well overall [...] x-rays. Assessment & Plan (02/18/2018 11:58 AM VESSEL SCRAPPER HELPER): Treatment options were discussed. The patient would [...] on calories. Most people should eat between 8455-3645 calories to lose weight. Decrease your carbohydrate [...] on calories. Most people should eat between 9831-1927 calories to lose weight. Decrease your carbohydrate [...] 07/22/2024 Assessment & Plan (04/15/2017 12:41 PM VESSEL SCRAPPER HELPER): Will do ambulatory PT as she is [...] Department Care Team Description 08/02/2024 Nurse Triage [facility] Primary Care at [address] [phone] Tracy Hernández NP 07/23/2024 Results Follow-Up [facility] Primary Care at [address] [phone] Tracy Hernández NP Comprehensive metabolic panel, Thyroid Function [place], Hemoglobin A1c, Additional followed-up results: 8 07/22/2024 10:15 AM CDT Lab [facility] Outpatient Lab at [address] [address] 07/22/2024 10:12 AM CDT - 07/22/2024 11:59 PM CDT Hospital Encounter [address] [id number] Hypertensive renal disease; Acquired hypothyroidism; Elevated glucose; Hypercholesterolemia Discharge Disposition: Discharge to home or self care 07/22/2024 9:30 AM CDT Office Visit [facility] Primary Care at [address] [phone] Tracy Hernández NP Acquired hypothyroidism (Primary Dx); Hypertensive renal disease; Hypercholesterolemia; Elevated glucose; Gastroesophageal reflux disease without esophagitis; Stage 3a chronic kidney disease (HCC); Generalized anxiety disorder with panic attacks; Major depression single episode, in partial remission; Primary insomnia 07/22/[address] [address] Shanna Oakes NP Medical Question/Miscellaneous 07/05/[address] [place] [phone] Shanna Oakes, ELLE Referral Request from Last [...] kidney disease) stage 3, GFR 30-59 ml/min ([facility]) Ocular migraine 03/13/2015 Cataract removed [...] y Miguel age 63 Heart disease Mother Sowmya Cline y Rivera Hypertension Mother Sowmya Cline [...] on file Legal Sex Female 11:38 PM VESSEL SCRAPPER HELPER Gender Identity Female 08/02/2019 9:59 AM CDT [...] history exists Medical Devices Implanted Type Area Crew Member Device Identifier Shelf Expiration Date Model / Serial / Lot [employer] 6191-1-010 Simplex P Radiopaque Full Dose Cement Bone Sterile - [id number] Implanted:Qty: 1 on 07/15/2018 by Irving Mccauley MD at [facility] Bone Cement Left: Knee [employer] 07/31/2020 6191-1-010 / / [id number] [employer] 61911-010 Simplex P Radiopaque Full Dose Cement Bone Sterile - [id number] Implanted:Qty: 1 on 07/15/2018 by Irving Mccauley MD at [facility] Bone Cement Left: Knee [employer] 07/31/2020 6191-1-010 / / [id number] Baseplate Shoulder 15mm Length - [id number] Implanted:Qty: 1 on 12/10/2017 by Tayo Murray DO at [facility] Right: Shoulder [employer] Rhea 09/30/2022 GBP-0960-0 30-15 / / [id number] Screw 5.5mm 20mm Length Shoulder - [id number] Implanted:Qty: 1 on 12/10/2017 by Tayo Murray DO at [facility] Right: Shoulder [employer] Rhea 07/29/2022 SCW-0960-0 55-20 / / [id number] Screw And Cap 4.5mm 15mm Shoulder - [id number] Implanted:Qty: 2 on 12/10/2017 by Tayo Murray DO at [facility] Right: Shoulder [employer] Rhea 08/28/2020 SSC-0960-0 45-15 / / [id number] Screw And Cap 4.5mm 20mm Shoulder - [id number] Implanted:Qty: 1 on 12/10/2017 by Tayo Murray DO at [facility] Right: Shoulder [employer] Rhea 06/01/2022 SSC-0960-0 45-20 / / [id number] Screw And Cap 4.5mm 25mm Shoulder - [id number] Implanted:Qty: 1 on 12/10/2017 by Tayo Murray DO at [facility] Right: Shoulder [employer] Rhea 05/30/2022 SSC-0960-0 45-25 / / [id number] Glenosphere Shoulder 5mm Eccentric - [id number] Implanted:Qty: 1 on 12/10/2017 by Tayo Murray DO at [facility] Right: Shoulder [employer] 11/30/2021 GLS-0960-0 5E / / [id number] [employer] [id number] 1 Titan 16.5mm 12.1mm 90.4mm Press Fit 12 Spline Modular - [id number] Implanted:Qty: 1 on 12/10/2017 by Tayo Murray DO at [facility] Right: Shoulder [employer] R[employer] 09/30/2021 STEM-20- 025-11 / / [id number] Body Shoulder Small Reverse [id number] - [id number] Implanted:Qty: 1 on 12/10/2017 by Tayo Murray DO at [facility] Right: Shoulder [employer] 04/02/2022 BBS-0960-2 1SML / / [id number] Liner +0mm 9.6mm Standard 20mm 2.7mm 38.7mm Shoulder Humeral - [id number] - [id number] Implanted:Qty: 1 on 12/10/2017 by Tayo Murray DO at [facility] Right: Shoulder [employer] R[employer] 04/30/2021 LNR-0960-0 0S / LNR-0960-0 0S / [id number] [employer]/O rtho [id number] Shannan Ii [id number] Knee Oval Component Patellar Uhmwpe - [id number] Implanted:Qty: 1 on 07/15/2018 by Irving Mccauley MD at [facility] Left: Knee [employer]/ Ortho [id number] 04/25/2028 [id number] / / [id number] [employer]/O rtho [id number] Journey Knee Left 3 Baseplate Tibial - [id number] Implanted:Qty: 1 on 07/15/2018 by Irving Mccauley MD at [facility] Left: Knee [employer]/ Ortho [id number] 09/23/2027 [id number] / / [id number] [employer]/O rtho [id number] Journey Ii Cruciate Retain Knee Left 4 Component Femoral Cocr - [id number] Implanted:Qty: 1 on 07/15/2018 by Irving Mccauley MD at [facility] Left: Knee [employer]/ Ortho [id number] 12/06/2027 [id number] / / [id number] [employer]/O rtho [id number] Journey Ii Left 3-4 Deep [facility] Insert Articular Xlpe - [id number] Implanted:Qty: 1 on 07/15/2018 by Irving Mccauley MD at [facility] Left: Knee [employer]/ Ortho [id number] 03/09/2026 [id number] / / [id number] Explanted Type Area Crew Member Device Identifier Shelf Expiration Date Model / Serial / Lot organgir.am [id number] 2mm 150mm Elbow Shoulder Guide Pin Orthopedic - [id number] Explanted:Qty: 2 on 12/10/2017 at [facility] Right: Shoulder organgir.am [id number] / / Procedures Procedure Name Priority [...] LAB BLOOD ORDERABLES Final Re sult AAMIR [address] [facility] [place] [address] * (ABNORMAL) Differential, auto (07/22/2024 10:12 AM CDT) Neutrophil abs 4.47 1.50 - 6.50 K/cumm Imm gran abs 0.03 0.00 - 0.10 K/cumm [facility] Lymphocyte abs 2.26 0.80 - 3.30 K/cumm [facility] Monocyte abs 0.86(H) 0.20 - 0.80 K/cumm [facility] Eosinophil abs 0.16 0.00 - 0.50 K/cumm [facility] Basophil abs 0.05 0.00 - 0.10 K/cumm [facility] Neutrophil pct 57.1 % [facility] Comment: Interpretive Data Percent cell count reference ranges are not reported, since discordance with absolute values may lead to misinterpretation of CBC data. Current Interpretive Data was last revised on 2017. Imm gran pct 0.4 % [facility] Comment: Interpretive Data Percent cell count reference ranges are not reported, since discordance with absolute values may lead to misinterpretation of CBC data. Current Interpretive Data was last revised on 2017. Lymphocyte pct 28.9 % [facility] Comment: Interpretive Data Percent cell count reference ranges are not reported, since discordance with absolute values may lead to misinterpretation of CBC data. Current Interpretive Data was last revised on 2017. Monocyte pct 11.0 % [facility] Comment: Interpretive Data Percent cell count reference ranges are not reported, since discordance with absolute values may lead to misinterpretation of CBC data. Current Interpretive Data was last revised on 2017. Eosinophil pct 2.0 % [facility] Comment: Interpretive Data Percent cell count reference ranges are not reported, since discordance with absolute values may lead to misinterpretation of CBC data. Current Interpretive Data was last revised on 2017. Basophil pct 0.6 % [facility] Comment: Interpretive Data Percent cell count reference ranges are not reported, since discordance with absolute values may lead to misinterpretation of CBC data. Current Interpretive Data was last revised on 2017. Blood 07/22/2024 10:1 2 AM CDT 07/22/2024 9:19 PM CDT Tracy Hernández IAP DISPLAYS ANALYST LAB BLOOD ORDERABLES Final Re sult Performing Organization Address [facility] Co de Phone Number AAMIR ALAS [address] [place] [address] * (ABNORMAL) Thyroid Function [place] (07/22/2024 10:12 AM CDT) TSH 20.00(H) 0.30 - 4.20 mcIUnit/mL Blood 07/22/2024 10:1 2 AM CDT 07/22/2024 9:19 PM CDT Tracy Hernández NP LAB BLOOD ORDERABLES Final Re sult Performing Organization Address [facility] de Phone Number AAMIR ALAS [address] [facility] [place] [place] [address] * (ABNORMAL) Urinalysis reflex to microscopic and [...] tendency for uric acid stone formation. Source: [facility] [employer] Current Interpretive Data was last revised on [...] Reflex to microscopic UA will be performed. [facility] Urine, clean voided 07/22/2024 10:12 AM CDT 07/22/2024 9:19 PM CDT Tracy Hernández NP LAB MICROBIOLOGY - GENERAL OR DERABLES Final Result Performing Organization Address City/[facility]/ZIP Co de Phone Number AAMIR [address] Department [place] [employer] [place] [place] [address] * (ABNORMAL) CBC with auto differential (07/22/2024 10:12 AM CDT) WBC 7.83 3.80 - 9.90 K/cumm Hgb 13.2 11.9 - 15.5 g/dL [facility] Hct 42.3 35.6 - 45.5 % [facility] Plt 212 150 - 400 K/cumm [facility] MPV 10.6 9.1 - 12.3 fL [facility] RBC 4.01 3.90 - 5.20 M/cumm [facility] MCV 105.5(H) 81.3 - 96.4 fL [facility] MCH 32.9 27.1 - 33.3 pg [facility] MCHC 31.2(L) 32.3 - 35.7 g/dL [facility] RDW CV 13.8 11.1 - 14.9 % [facility] RDW SD 54.0(H) 35.7 - 48.1 fL [facility] NRBC abs 0.00 0.00 - 0.01 K/cumm [facility] Blood 07/22/2024 10:1 2 AM CDT 07/22/2024 9:19 PM CDT Tracy Hernández NP LAB BLOOD ORDERABLES Final Re sult Performing Organization Address City/[facility]/ZIP Co de Phone Number AAMIR [address] [facility] Department [place] [employer] [place] [address] * (ABNORMAL) Urinalysis, microscopic only [...] NP LAB URINE ORDERABLES Final Re sult BANNERVIC [address] [address] [place] [address] * (ABNORMAL) Urine culture Urine, clean voided (07/22/2024 10:12 AM CDT) Report Final Report: Greater than or equal to 100,000 colonies/mL of Escherichia coli Plus growth of clinically insignificant bacterial lashonda. (.) Comment:Testing performed by : [facility], [address] [place]., [address] Organism ESCHERICHIA COLI [facility] Organism PLUS GROWTH OF CLINICALLY INSIGNIFICANT LASHONDA. BANNERNER Urine, clean voided 07/22/2024 10:12 AM CDT 07/23/2024 2:19 AM CDT Narrative CERNER CH - 07/25/2024 12:17 PM CDT Urine culture reflexed based upon urinalysis results. Testing performed by [facility] Microbiology Laboratory ([phone]) Organism Antibiotic Method Susceptibility Escherichia coli Ampicillin [...] OR DERABLES Final Result Performing Organization Address [facility] Co de Phone Number OSMARVIC ALAS [address] [facility] [employer] [place] [address] * T4, free (07/22/2024 10:12 AM CDT) Free T4 1.09 0.90 - 1.70 ng/dL Blood 07/22/2024 10:1 2 AM CDT 07/22/2024 9:30 PM CDT Tracy Hernández NP LAB BLOOD ORDERABLES Final Re sult Performing Organization Address [facility] de Phone Number AAMIR ALAS [address] [facility] [employer] [place] [address] * (ABNORMAL) Hemoglobin A1c (07/22/2024 10:12 AM CDT) Hgb A1C 5.9(H) 4.0 - 5.6 % Estimated Average Glucose 123 mg/dL AAMIR ALAS Comment: The ADA recommends reporting an estimated Average Glucose (eAG) with all Hemoglobin A1c results using the equation derived from a study of 507 normal and diabetic adults. Minority populations were underrepresented and children were not included. (Diabetes Care 31:4189-0348, 2008). The eAG is not equivalent to a fasting glucose. Blood 07/22/2024 10:1 2 AM CDT 07/22/2024 9:19 PM CDT Tracy Hernández NP LAB BLOOD ORDERABLES Final Re sult Performing Organization Address [facility] Co de Phone Number OSMARVIC [address] [facility] [employer] [place] [address] * (ABNORMAL) Lipid panel (07/22/2024 10:12 AM [...] NP LAB BLOOD ORDERABLES Final Re sult [facility] [address] [address] [place] [address] * Comprehensive metabolic panel (07/22/2024 [...] BLOOD ORDERABLES Final Re sult AAMIR ALAS [address] [address] [place] [address] * Dexa Axial Skeleton Bone Density 1 [...] Dual x-ray absorptiometry (DEXA) was performed using HoloGoGoPin system. GENERAL GUIDELINES: According to WHO guidelines, [...] to Health Maintenance Insurance MEDICARE COMMERCIAL GENERIC [facility] MEDICARE COMMERCIAL GENERIC MEDICARE COMMERCIAL GENERIC Advance Directives For more information, please contact: [phone] Documents on File Type Date Recorded Patient Lasting Room Machine Operator Expl anation ADVANCE DIRECTIVE 08/20/2019 2:35 PM Power of Renal Dialysis Technician-Medical ADVANCE DIRECTIVE 07/15/2018 11:14 AM ADVANCE DIRECTIVE [...] 3:25 PM 12/13/2017 4:26 PM Care Teams Concrete Pouring Supervisor Relationship Specialty Start Date End Date Tracy Hernández NP [address] [place] [address] PCP - General Family Medicine 07/22/24
--- NOTE | 2024-08-03 13:37 | ED_ITS ---
HPI - Female Genitourinary General Chief complaint: Urogenital-Female Stated complaint: UTI NOT IMPROVING Time Seen by Provider: 08/03/24 11:43 History of Present Illness HPI Narrative: Pt having dysuria, increased frequency, ongoing for almost a month; tried 1wk of cefdinir the but symptoms still persist. She has no flank pain but does report some chills and nausea. Related Data Home Medications ?Medication ?Instructions ?Recorded ?Confirmed ?Last Taken ?Type amlodipine 5 mg tablet 5 mg PO DAILY 01/06/19 07/28/24 01/12/19 05:00 History 5 MG atorvastatin 20 mg tablet 20 mg PO DAILY 01/06/19 07/28/24 Unknown History biotin 1,000 mcg chewable tablet 1,000 mcg PO DAILY 01/06/19 07/28/24 Unknown History clonazepam 0.5 mg tablet 0.5 mg PO BID 01/06/19 07/28/24 01/12/19 05:00 History 0.5MG duloxetine 60 mg capsule,delayed 60 mg PO BID 01/06/19 07/28/24 Unknown History release hydrochlorothiazide 12.5 mg capsule 12.5 mg PO DAILY 01/06/19 07/28/24 Unknown History potassium chloride 10 mEq 10 meq PO DAILY 01/06/19 07/28/24 Unknown History tablet,extended release levothyroxine 50 mcg tablet 100 mcg PO DAILY 07/28/24 07/28/24 Unknown History (Synthroid) Allergies Allergy/AdvReac Type Severity Reaction Status Date / Time ciprofloxacin Allergy Intermediate Other Verified 07/28/24 10:54 valsartan Allergy Unknown Other Verified 07/28/24 10:54 nitrofurantoin AdvReac Mild Nausea,Vomiting, Verified 07/28/24 10:54 Diarrhea sulfamethoxazole AdvReac Unknown UPSET Verified 07/28/24 10:54 STOMACH trimethoprim AdvReac Unknown UPSET Verified 07/28/24 10:54 STOMACH Review of Systems Review of Systems: All systems reviewed & are unremarkable except as noted in HPI and below PMFSH Past Medical History Medical History (Updated 08/03/24 @ 12:22 by Aminata Drew MD) Abdominal pain Bloating Constipation Degenerative disc disease Hypothyroid Hyperlipidemia Migraine Hypertension Spinal stenosis Surgical History Surgical History History of hysterectomy Social History Social History Smoking status: Never smoker Gender identity (if verbalized by the patient): Female Exam Narrative: EXAMINATION OF ORGAN SYSTEMS/BODY AREAS: Constitutional: Vital signs per nursing GENERAL:[No acute distress, non-toxic appearing.] HEAD: Normal with no signs of head trauma. EYES: EOMI, conjunctiva normal ENT: Hearing grossly intact LUNGS: Nonlabored breathing. HEART: [Regular rate and rhythm] ABD: [Soft], [nontender to palpation] EXT: Normal range of motion SKIN: [No rashes or lesions.] NEURO: [Alert and oriented x 3. No gross focal sensory or strength deficits.] PSYCH: Normal affect Course Vital Signs Vital signs: Vital Signs Pulse Rate 95 08/03/24 11:48 Respiratory Rate 18 08/03/24 11:48 Blood Pressure 127/89 08/03/24 11:48 Pulse Oximetry 99 08/03/24 11:48 Pulse Rate 95 08/03/24 11:48 Respiratory Rate 18 08/03/24 11:48 Blood Pressure 127/89 08/03/24 11:48 Pulse Oximetry 99 08/03/24 11:48 MDM - Female Genitourinary MDM Narrative Medical decision making narrative: 89F year-old patient presenting with suprapubic pressure and urinary symptoms consistent with UTI. Urinalysis is obtained and positive for signs of infection. Urine culture sent. I did check prior culture and will give dose of ceftriaxone here, Patient started on Augmentin, and strongly advised to return for any increasing or worsening pain, fevers or vomiting. They expressed understanding of instructions and is discharged in stable condition. Lab Data Labs: Lab Results 08/03/24 Range/Units 11:50 Urine Color Yellow (Yellow) Urine Appearance Clear (Clear) Urine pH 7.5 (5.0-9.0) Ur Specific [place] 1.011 (1.001-1.035) Urine Protein Negative (Negative) mg/dL Urine Glucose (UA) Negative (Negative) mg/dL Urine Ketones Negative (Negative) mg/dL Ur Blood (Man) Negative (Negative) Urine Nitrate Negative (Negative) Urine Bilirubin Negative (Negative) Urine Urobilinogen 1.0 (<2.0) mg/dL Leukocyte Esterase Rfl 2+ H (Negative) MICHELLE/UL Urine RBC 0-2 (0-2) /hpf Urine WBC 11-20 H (0-3) /hpf Ur Squamous Epith Cells None seen (Few) /hpf Urine Bacteria None seen /hpf Urine Casts 3-5 Discharge Plan Discharge Clinical Impression: Urinary tract infection Patient Disposition: Home Condition: Stable Instructions: Antibiotic Form, Urinary Tract Infection in Women (ED) Additional Instructions: Please try taking the antibiotics as prescribed and follow-up with your doctor regarding the results of your urine culture in case we need to switch to a different antibiotic. You can always return to the emergency room for any further issues. Patient Language: Persian Prescriptions: New amoxicillin-pot clavulanate 875-125 mg tablet 1 tablet PO Q12H Qty: 14 0RF No Action linaclotide 72 mcg capsule 72 mcg capsule 0RF atorvastatin 20 mg Tablet 20 mg PO DAILY clonazepam 0.5 mg Tablet 0.5 mg PO BID amlodipine 5 mg Tablet 5 mg PO DAILY potassium chloride 10 mEq Tablet Extended Release 10 meq PO DAILY hydrochlorothiazide 12.5 mg Capsule 12.5 mg PO DAILY duloxetine 60 mg Capsule,Delayed Release(Dr/Ec) 60 mg PO BID biotin 1,000 mcg Tablet,Chewable 1,000 mcg PO DAILY levothyroxine [Synthroid] 50 mcg tablet 100 mcg PO DAILY loratadine 10 mg tablet 10 mg PO DAILY Qty: 20 0RF hydroxyzine HCl 25 mg tablet 25 mg PO BID PRN (Reason: itching) Qty: 14 0RF tramadol 50 mg tablet 50 mg PO Q8H PRN (Reason: pain) Qty: 14 0RF Follow-up/Referrals: Mary,ALEKSANDRA Hunter [Primary Care Provider] -
[2024-08-03 14:23] VITALS: BP 121/81; PULSE 73; RESP 18; O2SAT 97
== END 2024-08-03 14:25 | disposition home or self-care (01) ==
LOC: ANHED 12:41
PROVIDERS: Emergency Provider Emergency Medicine; PCP Nurse Practitioner Family
DX: N39.0 Urinary tract infection, site not specified (principal)
CPT/HCPCS: 81001; 87086; 96361; 96365; 99284; J0696; J7030

== ENCOUNTER 2024-08-12 08:45 | Outpatient (CLI) | payer MEDICARE, MEDICAID, SELFPAY ==
--- NOTE | ~2024-08-12 | XR_ITS ---
XR abdomen/kub 1V Ordering provider: MARIBELL Nuñez History: . K59.00 - Constipation, unspecified . Comparison: None. FINDINGS: BOWEL: Nonobstructive bowel gas pattern. ORGANOMEGALY: None. SIGNIFICANT PATHOLOGIC CALCIFICATIONS: None. OTHER: No free air is seen under the diaphragm. Bilateral hip osteoarthritic changes. Pubic symphysit is. Bilateral sacroiliacs. Degenerative changes of the spine. IMPRESSION: NO ACUTE ABDOMINAL FINDINGS. Reviewed, dictated and finalized at location A.
--- NOTE | ~2024-08-12 | CT_ITS ---
CT of the Abdomen and Pelvis: Indication: Abdominal pain Technique: 2.5 mm axial scans were obtained through the abdomen and pelvis following intravenous adm inistration of 100 cc of Omnipaque 350. Dose reduction technique was used on this scan by utilizing a utomated exposure control and iterative reconstruction technique. The dose-length product (DLP) was 5 23.91 mGy-cm. COMPARISON: 08/03/2022 Findings: Scans through the lung bases are clear. Moderate to large hiatal hernia present. The liver, spleen, pancreas, adrenals and kidneys are within normal limits. Gallbladder absent. There are atherosclerotic calcifications of the aorta. No lymphadenopathy. Questionable mild extensive wall thickening of large bowel. No bowel obstruction. No abscess or free air. Small fat-containing umbilical hernia noted. Images through the pelvis were performed. Urinary bladder unremarkable. Status post hysterectomy. No pelvic mass. No ascites. Impression: Questionable mild infectious/inflammatory colitis. Correlate clinically. Moderate to large hiatal hernia. Small fat-containing umbilical hernia. Reviewed, dictated and finalized at [facility]. Impression: Questionable mild infectious/inflammatory colitis. Correlate clinically. Moderate to large hiatal hernia. Small fat-containing umbilical hernia.
--- OUTSIDE RECORDS SUMMARY | 2024-08-12 09:02 | XMS_ITS | Encounter Summary ---
Author Organization [facility] Healthcare Address [address] [place] [address] Care Team Providers Care Casino Cashier Manager Name Role Phone Tracy Hernández NP Primary Care Provider [phone] Reason for Visit * Reason Onset Date Comments Medical Question/Miscellaneous 07/22/2024 Encounter Details Date Type Department Care Team (Late st Contact Info) Description 07/22/2024 Telephone [facility] [address] [facility] [address] [place] [id number] Shanna Oakes NP [address] [facility] [address] [address] Medical Question/Miscellaneous Social History Tobacco [...] on file Legal Sex Female 11:38 PM 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 * Telephone Encounter - Betty Thurston - 07/22/2024 10:37 AM CDT Medical Question/Miscellaneous. Caller???s Concern: Patient is calling to give a message to CAPITAL EQUIPMENT SPECIALIST Shanna Oakes. She stated I cannot get current dependable transportation to [place]. I have switched to Dr. Hernández through [facility] in [place]. I am sorry I had to change. I love you. Thank you. Does message need to be routed? Yes-Action Needed documented in this encounter Plan of Treatment Not on file documented as of this encounter Visit Diagnoses Not on filedocumented in this encounter Care Teams Casino Cashier Manager Relationship Specialty Start Date End Date Tracy Hernández NP [address] [address] PCP - General Family Medicine 07/22/24 documented as of this encounter
--- OUTSIDE RECORDS SUMMARY | 2024-08-12 09:02 | XMS_ITS | Encounter Summary ---
Author Organization [facility] Address [address] [place] [address] Phone Care Team Providers Care Staffing Director Name Role Phone Matt Painting MD Primary Care Provider [phone] Tyesha Abarca DPT Unavailable Unavailable Yesi Cook DPT Unavailable Unavailable Renetta Pearl MA Unavailable [phone] Vernon Hernandez RN Unavailable [phone] Vernon Hernandez RN Unavailable [phone] Renetta Pearl MA Unavailable [phone] Shanna Oakes GOLF CART ATTENDANT Primary Care Provider [phone] Tracy Hernández GOLF CART ATTENDANT Primary Care Provider [phone] Encounter Details Date Type Department Care Team (Late st Contact Info) Description 04/15/2017 Orders Only [facility] ProviderChente MD [facility] [place] [address] Social History Tobacco Use Types Packs/Day Years Used Date Smoking Tobacco: Never Smokeless Tobacco: Never Alcohol Use Standard Drinks/Week Comments No 0 (1 standard drink = 0.6 oz pur e alcohol) Comments Unknown Sex and Gender Information Value Date Recorded Sex Assigned at Not on file Legal 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 us Historical Provider LAB BLOOD ORDERABLES Arline l Result documented in this encounter Visit Diagnoses Not on filedocumented in this encounter Care Teams Staffing Director Relationship Specialty Start Date End Date Matt Painting MD [address] [facility] [address] [place] [address] PCP - General 05/31/16 12/08/19 Shanna Oakes NP [address] [place] [address] [address] [place] [address] PCP - General Internal Medicine 12/09/19 07/21/24 Tracy Hernández NP [address] [facility] [address] [place] [address] PCP - General Family Medicine 07/22/24 Tyesha Abarca DPT Physical Therapist Physical Therapy 04/30/17 02/08/18 Yesi Cook DPT Physical Therapist Physical Therapy 07/30/17 03/06/20 Renetta Pearl MA [address] [place] [address] [address] [place] [address] ACO Care Band Log Mill And Carriage Operator 12/15/17 12/31/17 Vernon Hernandez, OPHELIA [address] [place] [address] [address] [place] [address] Inspector And Mender 01/01/18 02/11/18 Vernon Hernandez RN [address] [facility] [address] [place], [place] [id number] [facility] Outpatient Artificial Pearl Maker 07/20/18 10/15/18 Renetta Pearl MA [address] [facility] [address] [place], [place] [id number] ACO Care Band Log Mill And Carriage Operator 07/21/18 07/21/18 documented as of this encounter
--- OUTSIDE RECORDS SUMMARY | 2024-08-12 09:02 | XMS_ITS | Encounter Summary ---
Author Organization [facility] Healthcare Address [address] [place] [address] Care Team Providers Care Neurology Teacher Name Role Phone Matt Painting MD Primary Care Provider [phone] Yesi Cook DPT Unavailable Unavailable Vernon Hernandez RN Unavailable Renetta Pearl MA Unavailable Shanna Oakes WATER AND FIRE TECHNICIAN Primary Care Provider Tracy Hernández WATER AND FIRE TECHNICIAN Primary Care Provider [phone] Encounter Details Date Type Department Care Team (Late st Contact Info) Description 06/24/2018 Documentation [facility] Case Management [address] [place] [id number] Opal Marsh MSW Social History Tobacco Use Types Packs/Day Years Used Date Smoking Tobacco: Never Smokeless Tobacco: Never Alcohol Use Standard Drinks/Week Comments No 0 (1 standard drink = 0.6 oz pur e alcohol) Comments No Sex and Gender Information Value Date Recorded Sex Assigned at Not on file Legal Sex Female 11:38 PM WARP DRAWER Gender Identity Female 08/02/2019 9:59 AM CDT [...] [facility] in [place]. Pt informed that the referral will be sent upon admission for placement if PT recs SNF. SW will followafter surgery. documented in this encounter Plan of Treatment Not on file documented as of this encounter Visit Diagnoses Not on filedocumented in this encounter Care Teams Neurology Teacher Relationship Specialty Start Date End Date Matt Painting MD [address] [facility] [address], [place] [address] PCP - General 05/31/16 12/08/19 Shanna Oakes NP [address] [place] [address] [address] [place] [address] PCP - General Internal Medicine 12/09/19 07/21/24 Tracy Hernández NP [address] [facility] [address] [place] [address] PCP - General Family Medicine 07/22/24 Yesi Cook DPT Physical Therapist Physical Therapy 07/30/17 03/06/20 Vernon Hernandez RN [address] [place], [place] [address]R[address] [address] [facility] Outpatient Knitter Machine 07/20/18 10/15/18 Renetta Pearl, SONIA [address] [place] [address] ACO Care Marketing Graphics Specialist 07/21/18 07/21/18 documented as of this encounter
--- OUTSIDE RECORDS SUMMARY | 2024-08-12 09:02 | XMS_ITS | Referral Summary ---
Author Organization [facility] Address [address] [place] [address] Care Team Providers Care Teacher Visually Impaired Name Role Phone Tracy Hernández YOUTH SPECIALIST Primary Care Provider [phone] Encounters Date Type Department Care Team Description 08/09/2024 Orders Only [facility] Primary Care at [address] [phone] Tracy Hernández, YOUTH SPECIALIST 08/02/2024 Nurse Triage [facility] Primary Care at [address] [phone] Tracy Hernández YOUTH SPECIALIST 07/23/2024 Results Follow-Up [facility] Primary Care at [address] [phone] Tracy Hernández YOUTH SPECIALIST Comprehensive metabolic panel, Thyroid Function [place], Hemoglobin A1c, Additional followed-up results: 8 07/22/2024 10:12 AM CDT - 07/22/2024 11:59 PM CDT Hospital Encounter [address] [address] Hypertensive renal disease; Acquired hypothyroidism; Elevated glucose; Hypercholesterolemia Discharge Disposition: Discharge to home or self care 07/22/2024 Telephone [facility] [address], [place] [phone] Shanna Oakes NP Medical Question/Miscellaneous 07/22/2024 10:15 AM CDT Lab [facility] Outpatient Lab at [address] [phone] 07/22/2024 9:30 AM CDT Office Visit [facility] Primary Care at [address] [phone] Tracy Hernández NP Acquired hypothyroidism (Primary Dx); Hypertensive renal disease; Hypercholesterolemia; Elevated glucose; Gastroesophageal reflux disease without esophagitis; Stage 3a chronic kidney disease (HCC); Generalized anxiety disorder with panic attacks; Major depression single episode, in partial remission; Primary insomnia 07/05/2024 Telephone [facility] [address] [phone] Shanna Oakes NP Referral Request from Last [...] a day 180 tablet 3 5 Active LORazepam (ATIVAN) 0.5 mg tablet TAKE 1 TABLET BY MOUTH TWICE DAILY NEEDED FOR ANXIETY 60 tablet 1 5 Active traMADoL (ULTRAM) 50 mg tablet Take 1 tablet (50 mg total) by mouth every 6 (six) hours as needed for pain 60 tablet 5 Active levothyroxine (SYNTHROID) 100 mcg tablet Take 1 tablet (100 mcg total) by mouth composition instructor before breakfast 90 tablet 5 Active zolpidem CR (AMBIEN CR) 6.25 mg CR tabletIndicati ons:Insomnia Take 1 tablet (6.25 mg total) by mouth nightly as needed for sleep 30 tablet 5 5 02/06/20 25 Active acetaminophen- codeine (TYLENOL with CODEINE #3) 300-30 mg per tablet Take by mouth every 12 (twelve) hours as needed 3 07/23/19 25 Discontinue d(Therapy completed) methenamine (HIPREX) 1 gram tablet 4 07/23/19 25 Discontinue d(Patient Reported) levothyroxine (SYNTHROID) 75 mcg tablet TAKE 1 TABLET BY MOUTH ONCE DAILY IN THE MORNING BEFORE BREAKFAST 90 tablet 4 07/24/19 25 Discontinue d(Reorder) zolpidem CR (AMBIEN CR) 6.25 mg CR tablet TAKE 1 TABLET BY MOUTH AT BEDTIME NEEDED FOR SLEEP 30 tablet 2 5 08/10/19 25 Discontinue d(Duplicate order) cefdinir (OMNICEF) 300 mg capsuleIndicat ions:Urinary Tract/Genitour inary Infection Take 1 capsule (300 mg total) by mouth 2 (two) times a day for 5 days 10 capsule 5 07/29/19 25 Active Problems Problem Noted Date Diagnosed Date 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 Assessment & Plan (03/30/2024 12:53 PM FIBERGLASSER): Stable, continue Zolpidem Assessment & Plan (12/29/2023 1:26 PM CDT): Worse. Will switch to an ER Zolpidem. Dermatochalasis of both upper eyelids 10/15/2022 Assessment & Plan (10/16/2023 4:47 PM CDT): Pt not bothered, monitor Assessment & Plan (10/15/2022 12:55 PM CDT): Not v/s, monitor Atherosclerosis of aorta 05/09/2022 Overview (05/09/2022): 05/09/21- xray Assessment & Plan (03/30/2024 12:52 PM FIBERGLASSER): Stable, continue aspirin and Atorvastatin Assessment & Plan (09/16/2023 10:46 AM CDT): Stable, continue Atorvastatin and aspirin. Assessment & Plan (01/13/2023 10:31 AM FIBERGLASSER): Stable, continue aspirin and Atorvastatin Encounter for Medicare annual wellness exam 05/02 Assessment & Plan (03/30/2024 12:49 PM FIBERGLASSER): Please see below for a list of your medical conditions and recommendations. Assessment & Plan (01/13/2023 10:30 AM FIBERGLASSER): Please see below for a list of [...] 020 Assessment & Plan (03/30/2024 12:53 PM FIBERGLASSER): Stable, continue aspirin and Atorvastatin Assessment & Plan (09/16/2023 10:47 AM CDT): Stable, continue Atorvastatin and aspirin Assessment & Plan (01/13/2023 10:32 AM FIBERGLASSER): Stable, continue aspirin and Atorvastatin Assessment & Plan (01/03/2022 1:32 PM CDT): Stable, continue aspirin and Atorvastatin. Assessment & Plan (05/03/2021 11:10 AM FIBERGLASSER): Stable, continue Atorvastatin and aspirin Assessment & [...] UTI Assessment & Plan (04/15/2017 12:43 PM FIBERGLASSER): Having increased urinary frequency but no pain, feels similar to UTIs in the past. UA today with just trace blood, negative for leuks and nitrites Advised to keep hydrated and will send UA for culture BMI 28.0-28.9,adult 04/15/2017 Assessment & Plan (10/08/2017 11:47 AM CDT): Try to cut back on calories. Most people should eat between 7171-9681 calories to lose weight. Decrease your carbohydrate [...] help. Assessment & Plan (04/15/2017 11:14 AM FIBERGLASSER): BMI Follow-up includes: nutrition counseling and exercise [...] management. Assessment & Plan (05/03/2021 11:10 AM FIBERGLASSER): Stable, continue Gabapentin and Duloxetine Assessment & Plan (12/19/2019 7:35 PM CDT): Stable, continue duloxetine Assessment & Plan (06/14/2019 8:10 AM CDT): Requires chronic duloxetine and gabapentin therapy. Does see pain management at times. Assessment & Plan (04/15/2017 12:40 PM FIBERGLASSER): Improved and using lidocaine patches which help. Suspect this is more from bulging disc than it is from UTI and patient agrees. Major depression single episode, in partial amanda ssion 08/28/2016 Assessment & Plan (03/30/2024 12:53 PM FIBERGLASSER): Stable, continue Duloxetine Assessment & Plan (12/29/2023 1:26 PM CDT): Stable, continue Duloxetine Assessment & Plan (01/13/2023 10:33 AM FIBERGLASSER): Stable, continue Duloxetine Assessment & Plan (09/10/2022 3:17 PM CDT): Improved. Continue Duloxetine Assessment & Plan (05/03/2022 2:59 PM FIBERGLASSER): Stable, continue Duloxetine Assessment & Plan (01/03/2022 1:30 PM CDT): Intermittent. Continue Duloxetine. Assessment & Plan (05/03/2021 11:09 AM FIBERGLASSER): Chronic and unchanged. Continue Duloxetine Assessment & [...] Duloxetine Assessment & Plan (02/16/2018 1:25 PM FIBERGLASSER): Doing well with the clonazepam and duloxetine Assessment & Plan (04/15/2017 12:42 PM FIBERGLASSER): Still teary in the room over the [...] disease Assessment & Plan (03/30/2024 12:49 PM FIBERGLASSER): The blood pressure is adequately controlled. Ideally, [...] way. Assessment & Plan (01/13/2023 10:30 AM FIBERGLASSER): The blood pressure is adequately controlled. Ideally, [...] way. Assessment & Plan (05/03/2022 2:57 PM FIBERGLASSER): The blood pressure is adequately controlled. Ideally, [...] way. Assessment & Plan (05/03/2021 11:08 AM FIBERGLASSER): The blood pressure is adequately controlled. Ideally, [...] Hypothyroidism Assessment & Plan (03/30/2024 12:50 PM FIBERGLASSER): Stable, continue levothyroxine Assessment & Plan (12/29/2023 1:24 PM CDT): Stable, continue levothyroxine Assessment & Plan (09/16/2023 10:46 AM CDT): Stable? Will recheck today. Assessment & Plan (01/13/2023 10:31 AM FIBERGLASSER): Stable, continue levothyroxine. Assessment & Plan (09/10/2022 3:15 PM CDT): Stable? Will recheck today. Assessment & Plan (05/03/2022 2:57 PM FIBERGLASSER): Stable? Will recheck today. Assessment & Plan (01/03/2022 1:24 PM CDT): Stable, continue levothyroxine Assessment & Plan (05/03/2021 11:08 AM FIBERGLASSER): Stable? Continue levothyroxine. Assessment & Plan (11/08/2020 [...] are stable, [facility] Continue statin therapy. Lipitor (atorvastatin) Order for lipid panel was given today to be obtained. Pt voiced understanding of lab drawn and continuation of current medication regimen. Assessment & Plan (03/30/2024 12:49 PM FIBERGLASSER): Continue low fat eating- limit fried foods, [...] prescribed. Assessment & Plan (01/13/2023 10:30 AM FIBERGLASSER): Continue low fat eating- limit fried foods, [...] prescribed. Assessment & Plan (05/03/2022 2:58 PM FIBERGLASSER): Continue low fat eating- limit fried foods, [...] day. Assessment & Plan (05/03/2021 11:09 AM FIBERGLASSER): Continue low fat eating- limit fried foods, [...] attacks Assessment & Plan (03/30/2024 1:37 PM FIBERGLASSER): Not controlled, continue Lorazepam as needed Assessment & Plan (01/13/2023 10:32 AM FIBERGLASSER): Stable, continue Duloxetine and Lorazepam as needed. Assessment & Plan (09/10/2022 3:18 PM CDT): Improved. Continue Duloxetine and uses Lorazepam as needed. Try not take this medication daily or intermediate is at all possible as it can lead to dependence/addiction/tolerance, memory issues and may cause depression middle or intermediate school principal. Keep this medication out of the reach of other people. Do not drive or drink alcohol with this medication. Assessment & Plan (05/03/2022 3:00 PM FIBERGLASSER): Chronic and unchanged. Continue Lorazepam as needed. Assessment & Plan (01/03/2022 1:31 PM CDT): Stable, continue Lorazepam as needed Assessment & Plan (11/08/2020 5:25 PM CDT): Stable, continue Clonazepam Assessment & Plan (05/22/2020 8:01 PM CDT): Stable, continue Clonazepam as needed. Do not take this medication daily or middle or intermediate school principal is at all possible as it can lead to dependence/addiction/tolerance, memory issues and may cause depression middle or intermediate school principal. Keep this medication out of the reach [...] disease) Assessment & Plan (03/30/2024 12:53 PM FIBERGLASSER): Try to eat smaller more frequent meals. [...] weight. Assessment & Plan (01/13/2023 10:32 AM FIBERGLASSER): Try to eat smaller more frequent meals. [...] weight. Assessment & Plan (05/03/2022 2:59 PM FIBERGLASSER): Try to eat smaller more frequent meals. [...] weight. Assessment & Plan (05/03/2021 11:09 AM FIBERGLASSER): Try to eat smaller more frequent meals. [...] today. Assessment & Plan (03/30/2024 12:53 PM FIBERGLASSER): Continue to increase water intake. Limit use [...] weight. Assessment & Plan (01/13/2023 10:32 AM FIBERGLASSER): Continue to increase water intake. Limit use of NSAIDs including Ibuprofen, Aleve, Motrin, etc. Continue aerobic exercise and maintain a healthy weight. Assessment & Plan (09/10/2022 3:20 PM CDT): Continue to increase water intake. Limit use of NSAIDs including Ibuprofen, Aleve, Motrin, etc. Continue aerobic exercise and maintain a healthy weight. Assessment & Plan (05/03/2022 3:00 PM FIBERGLASSER): Continue to increase water intake. Limit use of NSAIDs including Ibuprofen, Aleve, Motrin, etc. Continue aerobic exercise and maintain a healthy weight. Assessment & Plan (01/03/2022 1:31 PM CDT): Continue to increase water intake. Limit use of NSAIDs including Ibuprofen, Aleve, Motrin, etc. Continue aerobic exercise and maintain a healthy weight. Assessment & Plan (05/03/2021 11:10 AM FIBERGLASSER): Continue to increase water intake. Limit use [...] (06/12/2018): Added automatically from request for surgery [id number] Encounter for weight management 06/05/2018 07/22/2024 Dyslipidemia [...] needed Assessment & Plan (04/10/2018 4:07 PM FIBERGLASSER): The patient has done very well overall [...] x-rays. Assessment & Plan (02/18/2018 11:58 AM FIBERGLASSER): Treatment options were discussed. The patient would [...] on calories. Most people should eat between 5455-3529 calories to lose weight. Decrease your carbohydrate [...] on calories. Most people should eat between 3371-8387 calories to lose weight. Decrease your carbohydrate [...] 07/22/2024 Assessment & Plan (04/15/2017 12:41 PM FIBERGLASSER): Will do ambulatory PT as she is [...] on file Legal Sex Female 11:38 PM FIBERGLASSER Gender Identity Female 08/02/2019 9:59 AM CDT [...] on file Medical Devices Implanted Type Area Air And Hydronic Balancing Technician Device Identifier Shelf Expiration Date Model / Serial / Lot [employer] 6191-1-010 Simplex P Radiopaque Full Dose Cement Bone Sterile - [id number] Implanted:Qty: 1 on 07/15/2018 by Irving Mccauley MD at [facility] Bone Cement Left: Knee [employer] 07/31/2020 6191-1-010 / / [id number] [employer] 6191-1-010 Simplex P Radiopaque Full Dose Cement Bone Sterile - [id number] Implanted:Qty: 1 on 07/15/2018 by Irving Mccauley MD at [facility] Bone Cement Left: Knee [employer] 07/31/2020 6191-1-010 / / [id number] Baseplate Shoulder 15mm Length - [id number] Implanted:Qty: 1 on 12/10/2017 by Tayo Murray DO at [facility] Right: Shoulder [employer] Rhea 09/30/2022 GBP-0960-0 30-15 / / [id number] Screw 5.5mm 20mm Length Shoulder - [id number] Implanted:Qty: 1 on 12/10/2017 by Tayo Murray DO at [facility] Right: Shoulder [employer] Rhea 07/29/2022 SCW-0960-0 55-20 / / [id number] Screw And Cap 4.5mm 15mm Shoulder - [id number] Implanted:Qty: 2 on 12/10/2017 by Tayo Murray DO at [facility] Right: Shoulder [employer] Rhea 08/28/2020 SSC-0960-0 45-15 / / [id number] Screw And Cap 4.5mm 20mm Shoulder - [id number] Implanted:Qty: 1 on 12/10/2017 by Tayo Murray DO at [facility] Right: Shoulder [employer] Rhea 06/01/2022 SSC-0960-0 45-20 / / [id number] Screw And Cap 4.5mm 25mm Shoulder - [id number] Implanted:Qty: 1 on 12/10/2017 by Tayo Murray DO at [facility] Right: Shoulder [employer] Rhea 05/30/2022 SSC-0960-0 45-25 / / [id number] Glenosphere Shoulder 5mm Eccentric - [id number] Implanted:Qty: 1 on 12/10/2017 by Tayo Murray DO at [facility] Right: Shoulder [employer] Rhea 11/30/2021 GLS-0960-0 5E / / [id number] [employer] Rhea [id number] Titan 16.5mm 12.1mm 90.4mm Press Fit 12 Spline Modular - [id number] Implanted:Qty: 1 on 12/10/2017 by Tayo Murray DO at [facility] Right: Shoulder [employer] Rhea 09/30/2021 STEM-0920- 025-11 / / [id number] Body Shoulder Small Reverse [id number] - [id number] Implanted:Qty: 1 on 12/10/2017 by Tayo Murray DO at [facility] Right: Shoulder [employer] Rhea 04/02/2022 BBS-0960-2 1SML / / [id number] Liner +0mm 9.6mm Standard 20mm 2.7mm 38.7mm Shoulder Humeral - [id number] - [id number] Implanted:Qty: 1 on 12/10/2017 by Tayo Murray DO at [facility] Right: Shoulder Integra [employer] Rhea 04/30/2021 LNR-0960-0 0S / LNR-0960-0 0S / [id number] [employer]hew[employer]Rich[employer]/O rtho [id number] Shannan Ii [id number] Knee Oval Component Patellar Uhmwpe - [id number] Implanted:Qty: 1 on 07/15/2018 by Irving Mccauley MD at [facility] Left: Knee [employer]/ Ortho [id number] 04/25/2028 [id number] / / [id number] [employer]Rich[employer]/O rtho [id number] Journey Knee Left 3 Baseplate Tibial - [id number] Implanted:Qty: 1 on 07/15/2018 by Irving Mccauley MD at [facility] Left: Knee [employer]/ Ortho [id number] 09/23/2027 [id number] / / [id number] [employer]/Rich[employer]/O rtho [id number] Journey Ii Cruciate Retain Knee Left 4 Component Femoral Cocr - [id number] Implanted:Qty: 1 on 07/15/2018 by Irving Mccauley MD at [facility] Left: Knee [employer]/ Ortho [id number] 12/06/2027 [id number] / / [id number] [employer]/O rtho [id number] Journey Ii Left 3-4 Deep [facility] [facility] Insert Articular Xlpe - [id number] Implanted:Qty: 1 on 07/15/2018 by Irving Mccauley MD at [facility] Left: Knee [employer]/ Ortho [id number] 03/09/2026 [id number] / / [id number] Explanted Type Area Air And Hydronic Balancing Technician Device Identifier Shelf Expiration Date Model / Serial / Lot [employer] [id number] 2mm 150mm Elbow Shoulder Guide Pin Orthopedic - [id number] Explanted:Qty: 2 on 12/10/2017 at [facility] Right: Shoulder Integra [employer] [id number] / / Procedures Procedure Name Priority [...] Results * eGFR (07/22/2024 10:12 AM CDT) Pathologist [facility] eGFR 75 >=60 mL/min/1. 73 m2 Comment: [...] NP LAB BLOOD ORDERABLES Final Re sult [facility] [address] Department [place] [address] * (ABNORMAL) Differential, auto (07/22/2024 10:12 AM CDT) Pathologist [facility] Neutrophil abs 4.47 1.50 - 6.50 K/cumm Imm gran abs 0.03 0.00 - 0.10 K/cumm [facility] Lymphocyte abs 2.26 0.80 - 3.30 K/cumm [facility] Monocyte abs 0.86(H) 0.20 - 0.80 K/cumm [facility] Eosinophil abs 0.16 0.00 - 0.50 K/cumm [facility] Basophil abs 0.05 0.00 - 0.10 K/cumm [facility] Neutrophil pct 57.1 % [facility] Comment: Interpretive Data Percent cell count reference ranges are not reported, since discordance with absolute values may lead to misinterpretation of CBC data. Current Interpretive Data was last revised on 2017. Imm gran pct 0.4 % [facility] Comment: Interpretive Data Percent cell count reference ranges are not reported, since discordance with absolute values may lead to misinterpretation of CBC data. Current Interpretive Data was last revised on 2017. Lymphocyte pct 28.9 % [facility] Comment: Interpretive Data Percent cell count reference ranges are not reported, since discordance with absolute values may lead to misinterpretation of CBC data. Current Interpretive Data was last revised on 2017. Monocyte pct 11.0 % [facility] Comment: Interpretive Data Percent cell count reference ranges are not reported, since discordance with absolute values may lead to misinterpretation of CBC data. Current Interpretive Data was last revised on 2017. Eosinophil pct 2.0 % [facility] Comment: Interpretive Data Percent cell count reference ranges are not reported, since discordance with absolute values may lead to misinterpretation of CBC data. Current Interpretive Data was last revised on 2017. Basophil pct 0.6 % [facility] Comment: Interpretive Data Percent cell count reference ranges are not reported, since discordance with absolute values may lead to misinterpretation of CBC data. Current Interpretive Data was last revised on 2017. Blood 07/22/2024 10:1 2 AM CDT 07/22/2024 9:19 PM CDT Tracy Hernández NP LAB BLOOD ORDERABLES Final Re sult [facility] [address] Department of Laboratories [place], [place] [id number] * (ABNORMAL) Thyroid Function [place] (07/22/2024 10:12 AM CDT) TSH 20.00(H) 0.30 - 4.20 mcIUnit/mL Blood 07/22/2024 10:1 2 AM CDT 07/22/2024 9:19 PM CDT Tracy Hernández NP LAB BLOOD ORDERABLES Final Re sult [facility] [address] Department [place] [address] * (ABNORMAL) Urinalysis reflex to microscopic and [...] for uric acid stone formation. Source: [facility] Current Interpretive Data was last revised on [...] MICROBIOLOGY - GENERAL OR DERABLES Final Result [facility] [address] Department [place] [address] * (ABNORMAL) CBC with auto [...] NRBC abs 0.00 0.00 - 0.01 K/cumm [facility] Blood 07/22/2024 10:1 2 AM CDT 07/22/2024 9:19 PM CDT Tracy Hernández NP LAB BLOOD ORDERABLES Final Re sult Performing Organization Address [facility] de Phone Number [facility] ALAS [address] Department [place] [address] * (ABNORMAL) Urinalysis, microscopic only (07/22/2024 10:12 AM CDT) WBC, ur >50(A) 0 - 5 /HPF RBC, ur 21-50(A) 0 - 2 /HPF [facility] Bacteria, ur 4+(A) [facility] Amorphous crystals, ur 1+(A) [facility] CH Culture Reflex Comment Reflex to urine culture will be performed. [facility] Urine, clean voided 07/22/2024 10:12 AM CDT 07/22/2024 9:19 PM CDT Tracy Hernández NP LAB URINE ORDERABLES Final Re sult Performing Organization Address [facility] Co de Phone Number [facility] ALAS [address] Department of [employer] [place], [place] [id number] * (ABNORMAL) Urine culture Urine, clean voided (07/22/2024 10:12 AM CDT) Report Final Report: Greater than or equal to 100,000 colonies/mL of Escherichia coli Plus growth of clinically insignificant bacterial lashonda. (.) Comment:Testing performed by : [facility], [address] [place]., [address] Organism ESCHERICHIA COLI [facility] Organism PLUS GROWTH OF CLINICALLY INSIGNIFICANT LASHONDA. [facility] Urine, clean voided 07/22/2024 10:12 AM CDT 07/23/2024 2:19 AM CDT Narrative [facility] - 07/25/2024 12:17 PM CDT Urine culture reflexed based upon urinalysis results. Testing performed by [facility] ([phone]) Organism Antibiotic Method Susceptibility Escherichia coli Ampicillin [...] INTERPRETATION Susceptible Escherichia coli Cefdinir INTERPRETATION Susceptible Tarcy Hernández NP LAB MICROBIOLOGY - GENERAL OR DERABLES Final Result Performing Organization Address City/[facility]/ZIP Co de Phone Number [facility] ALAS [address] [employer] [place], [place] [id number] * T4, free (07/22/2024 10:12 AM CDT) Free T4 1.09 0.90 - 1.70 ng/dL Blood 07/22/2024 10:1 2 AM CDT 07/22/2024 9:30 PM CDT Tracy Hernández NP LAB BLOOD ORDERABLES Final Re sult Performing Organization Address City/[facility] Co de Phone Number [facility] ALAS [address] [place] [address] * (ABNORMAL) Hemoglobin A1c (07/22/2024 10:12 AM CDT) Hgb A1C 5.9(H) 4.0 - 5.6 % Estimated Average Glucose 123 mg/dL [facility] Comment: The ADA recommends reporting an estimated Average Glucose (eAG) with all Hemoglobin A1c results using the equation derived from a study of 507 normal and diabetic adults. Minority populations were underrepresented and children were not included. (Diabetes Care 31:9373-8907, 2008). The eAG is not equivalent to a fasting glucose. Blood 07/22/2024 10:1 2 AM CDT 07/22/2024 9:19 PM CDT Tracy Hernández NP LAB BLOOD ORDERABLES Final Re sult [facility] [address] Department [place] [address] * (ABNORMAL) Lipid panel (07/22/2024 10:12 AM [...] 2004;110:227 3. Rick Hanson al. KANA Cardiol. 2020 July 01;5(5):540-548. doi: [...] NP LAB BLOOD ORDERABLES Final Re sult [facility] [address] Department [place] [address] * Comprehensive metabolic panel (07/22/2024 10:12 AM [...] BLOOD ORDERABLES Final Re sult [facility] [address] Department [place] [address] * Dexa Axial Skeleton Bone Density 1 [...] Dual x-ray absorptiometry (DEXA) was performed using Vupen system. GENERAL GUIDELINES: According to WHO guidelines, [...] Dual x-ray absorptiometry (DEXA) was performed using Vupen system. GENERAL GUIDELINES: According to WHO guidelines, [...] to Health Maintenance Insurance MEDICARE COMMERCIAL GENERIC [facility] MEDICARE COMMERCIAL GENERIC MEDICARE COMMERCIAL GENERIC Advance Directives For more information, please contact: [phone] Documents on File Type Date Recorded Patient Drafting Clerk Expl anation ADVANCE DIRECTIVE 08/20/2019 2:35 PM Power of Advance [employer] ADVANCE DIRECTIVE 07/15/2018 11:14 AM ADVANCE DIRECTIVE [...] 3:25 PM 12/13/2017 4:26 PM Care Teams Teacher Visually Impaired Relationship Specialty Start Date End Date Tracy Hernández NP [address] [facility] [address] [place] [address] PCP - General Family Medicine 07/22/24
--- OUTSIDE RECORDS SUMMARY | 2024-08-12 09:02 | XMS_ITS | Encounter Summary ---
Author Organization [facility] Healthcare Address [address] [place] [address] Care Team Providers Care White Sugar Pan Tank Operator Name Role Phone Yesi Cook DPT Unavailable Unavailable Shanna Oakes NP Primary Care Provider [phone] Tracy Hernández QC CHEMIST Primary Care Provider [phone] Encounter Details Date Type Department Care Team (Late st Contact Info) Description 12/28/2019 Telephone [facility] [address] [place] [address] Melanie Del Rio, Social History Tobacco Use [...] on file Legal Sex Female 11:38 PM SCIENCES DEAN Gender Identity Female 08/02/2019 9:59 AM CDT Sexual Orientation Straight 06/03/2018 6: 51 PM CDT documented as of this encounter Plan of Treatment Not on file documented as of this encounter Visit Diagnoses Not on filedocumented in this encounter Care Teams White Sugar Pan Tank Operator Relationship Specialty Start Date End Date Shanna Oakes NP PCP - General Internal Medicine 12/09/19 07/21/24 Tracy Hernández NP [address] [address] PCP - General Family Medicine 07/22/24 Yesi Cook, VENITAT Physical Therapist Physical Therapy 07/30/17 03/06/20 documented as of this encounter
--- OUTSIDE RECORDS SUMMARY | 2024-08-12 09:02 | XMS_ITS | Encounter Summary ---
Author Organization [facility] Healthcare Address [address] [place] [address] Care Team Providers Care Wall Attendant Name Role Phone Matt Painting MD Primary Care Provider [phone] Tyesha Abarca DPT Unavailable Unavailable Yesi Cook DPT Unavailable Unavailable Renetta Pearl MA Unavailable [phone] Vernon Hernandez RN Unavailable [phone] Vernon Hernandez RN Unavailable [phone] Renetta Pearl MA Unavailable [phone] Shanna Oakes TILE TRIMMER Primary Care Provider [phone] Tracy Hernández TILE TRIMMER Primary Care Provider [phone] Encounter Details Date Type Department Care Team (Late st Contact Info) Description 11/28/2017 Documentation [facility] Case Management [address] [place] [address] Opal Marsh MSW Social History Tobacco Use Types Packs/Day Years Used Date Smoking Tobacco: Never Smokeless Tobacco: Never Alcohol Use Standard Drinks/Week Comments No 0 (1 standard drink = 0.6 oz pur e alcohol) Comments Unknown Sex and Gender Information Value Date Recorded Sex Assigned at Not on file 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 [place] [address] PCP - General Internal Medicine 12/09/19 07/21/24 Tracy Hernández NP [address] [facility] [address] [place] [address] PCP - General Family Medicine 07/22/24 Tyesha Abarca, KIMBERLY Physical Therapist Physical Therapy 04/30/17 02/08/18 Joyce, Yesi E., DPT Physical Therapist Physical Therapy 07/30/17 03/06/20 Renetta Pearl MA [address] [place] [address] ACO Care Cafeteria Or Lunchroom Checker 12/15/17 12/31/17 Vernon Hernandez RN [address] [place] [address] [address] [place], [place] [id number] Safety Assistant 01/01/18 02/11/18 Vernon Hernandez RN [address] [place] [address] [address] [place], [place] [id number] [facility] Outpatient Trade Mark Examiner 07/20/18 10/15/18 Renetta Pearl MA [address] [place] [address] ACO Care Cafeteria Or Lunchroom Checker 07/21/18 07/21/18 documented as of this encounter
--- OUTSIDE RECORDS SUMMARY | 2024-08-12 09:02 | XMS_ITS | Encounter Summary ---
Author Organization [facility] Healthcare Address [address] [place] [address] Care Team Providers Care Gum Maker Name Role Phone Tracy Hernández NP Primary Care Provider Reason for Visit * Reason Onset Date Comments Dysuria 08/02/2024 IV Antibiotics 08/02/2024 Encounter Details Date Type Department Care Team (Late st Contact Info) Description 08/02/[address] 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 Warm transferred. Does message need to be routed? No Reason for Warm Transfer: Symptoms: Patient has Red flag symptoms, surveyor oil well directional evaluated patient and directed patient to call [...] for Conversation Dysuria and IV Antibiotics Background Latsaha Menard calling about ongoing dysuria, frequency and [...] Tract Infection on Antibiotic Follow-up Call - [id number] * Telephone Encounter - Odette Zimmer RN [...] on filedocumented in this encounter Care Teams Gum Maker Relationship Specialty Start Date End Date Tracy Hernández NP [address] [address] PCP - General Family Medicine 07/22/24 documented as of this encounter
--- OUTSIDE RECORDS SUMMARY | 2024-08-12 09:02 | XMS_ITS | Encounter Summary ---
Author Organization [facility] Address [address] [place] [address] Phone Care Team Providers Care Museum Specialist Name Role Phone Matt Painting MD Primary Care Provider [phone] Tyesha Abarca DPT Unavailable Unavailable Yesi Cook DPT Unavailable Unavailable Renetta Pearl MA Unavailable [phone] Vernon Hernandez RN Unavailable [phone] Vernon Hernandez RN Unavailable [phone] Renetta Pearl MA Unavailable [phone] Shanna Oakes CORNICE MAKER Primary Care Provider [phone] Tracy Hernández CORNICE MAKER Primary Care Provider [phone] Encounter Details Date Type Department Care Team (Late st Contact Info) Description 06/12/2017 Orders Only [facility] ProviderChente MD [facility] [place] [address] Social History Tobacco Use Types Packs/Day Years Used Date Smoking Tobacco: Never Smokeless Tobacco: Never Alcohol Use Standard Drinks/Week Comments No 0 (1 standard drink = 0.6 oz pur e alcohol) Comments Unknown Sex and Gender Information Value Date Recorded Sex Assigned at Not on file 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 [address] [place] [address] PCP - General 05/31/16 12/08/19 Shanna Oakes NP [address] [facility] [address] [place] [address] PCP - General Internal Medicine 12/09/19 07/21/24 Tracy Hernández NP [address] [facility] [address] [place] [address] PCP - General Family Medicine 07/22/24 Tyesha Abarca DPT Physical Therapist Physical Therapy 04/30/17 02/08/18 Yesi Cook DPT Physical Therapist Physical Therapy 07/30/17 03/06/20 Renetta Pearl MA [address] [facility] [address] [place] [address] ACO Care Traveling Plant Operator 12/15/17 12/31/17 Vernon Hernandez, OPHELIA [address] [facility] [address] [place] [address] Quitline Counselor 01/01/18 02/11/18 Vernon Hernandez RN [address] [facility] [address] [place] [address] [facility] Outpatient Jewel Bearing Turner 07/20/18 10/15/18 Renetta Pearl MA [address] [facility] [address] [place], [place] [id number] ACO Care Traveling Plant Operator 07/21/18 07/21/18 documented as of this encounter
--- OUTSIDE RECORDS SUMMARY | 2024-08-12 09:02 | XMS_ITS | Encounter Summary ---
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
--- OUTSIDE RECORDS SUMMARY | 2024-08-12 09:02 | XMS_ITS | Clinical Summary ---
Author Organization [facility] Address [address] [place] [address] Care Team Providers Care Dipping Machine Operator Name Role Phone Tracy Hernández NP Primary Care Provider [phone] Allergies Active Allergy Reactions Criticality Noted Date [...] 1 tablet (100 mcg total) by mouth calender roll press operator before breakfast 90 tablet 5 Active zolpidem [...] zolpidem. Assessment & Plan (03/30/2024 12:53 PM METAL BONDER): Stable, continue Zolpidem Assessment & Plan (12/29/2023 1:26 PM CDT): Worse. Will switch to an ER Zolpidem. Dermatochalasis of both upper eyelids 10/15/2022 Assessment & Plan (10/16/2023 4:47 PM CDT): Pt not bothered, monitor Assessment & Plan (10/15/2022 12:55 PM CDT): Not v/s, monitor Atherosclerosis of aorta 05/09/2022 Overview (05/09/2022): 05/09/21- xray Assessment & Plan (03/30/2024 12:52 PM METAL BONDER): Stable, continue aspirin and Atorvastatin Assessment & Plan (09/16/2023 10:46 AM CDT): Stable, continue Atorvastatin and aspirin. Assessment & Plan (01/13/2023 10:31 AM METAL BONDER): Stable, continue aspirin and Atorvastatin Encounter for Medicare annual wellness exam 05/02 Assessment & Plan (03/30/2024 12:49 PM METAL BONDER): Please see below for a list of your medical conditions and recommendations. Assessment & Plan (01/13/2023 10:30 AM METAL BONDER): Please see below for a list of [...] 020 Assessment & Plan (03/30/2024 12:53 PM METAL BONDER): Stable, continue aspirin and Atorvastatin Assessment & Plan (09/16/2023 10:47 AM CDT): Stable, continue Atorvastatin and aspirin Assessment & Plan (01/13/2023 10:32 AM METAL BONDER): Stable, continue aspirin and Atorvastatin Assessment & Plan (01/03/2022 1:32 PM CDT): Stable, continue aspirin and Atorvastatin. Assessment & Plan (05/03/2021 11:10 AM METAL BONDER): Stable, continue Atorvastatin and aspirin Assessment & [...] UTI Assessment & Plan (04/15/2017 12:43 PM METAL BONDER): Having increased urinary frequency but no pain, feels similar to UTIs in the past. UA today with just trace blood, negative for leuks and nitrites Advised to keep hydrated and will send UA for culture BMI 28.0-28.9,adult 04/15/2017 Assessment & Plan (10/08/2017 11:47 AM CDT): Try to cut back on calories. Most people should eat between 4037-3044 calories to lose weight. Decrease your carbohydrate [...] help. Assessment & Plan (04/15/2017 11:14 AM METAL BONDER): BMI Follow-up includes: nutrition counseling and exercise [...] management. Assessment & Plan (05/03/2021 11:10 AM METAL BONDER): Stable, continue Gabapentin and Duloxetine Assessment & Plan (12/19/2019 7:35 PM CDT): Stable, continue duloxetine Assessment & Plan (06/14/2019 8:10 AM CDT): Requires chronic duloxetine and gabapentin therapy. Does see pain management at times. Assessment & Plan (04/15/2017 12:40 PM METAL BONDER): Improved and using lidocaine patches which help. Suspect this is more from bulging disc than it is from UTI and patient agrees. Major depression single episode, in partial amanda ssion 08/28/2016 Assessment & Plan (03/30/2024 12:53 PM METAL BONDER): Stable, continue Duloxetine Assessment & Plan (12/29/2023 1:26 PM CDT): Stable, continue Duloxetine Assessment & Plan (01/13/2023 10:33 AM METAL BONDER): Stable, continue Duloxetine Assessment & Plan (09/10/2022 3:17 PM CDT): Improved. Continue Duloxetine Assessment & Plan (05/03/2022 2:59 PM METAL BONDER): Stable, continue Duloxetine Assessment & Plan (01/03/2022 1:30 PM CDT): Intermittent. Continue Duloxetine. Assessment & Plan (05/03/2021 11:09 AM METAL BONDER): Chronic and unchanged. Continue Duloxetine Assessment & [...] Duloxetine Assessment & Plan (02/16/2018 1:25 PM METAL BONDER): Doing well with the clonazepam and duloxetine Assessment & Plan (04/15/2017 12:42 PM METAL BONDER): Still teary in the room over the [...] disease Assessment & Plan (03/30/2024 12:49 PM METAL BONDER): The blood pressure is adequately controlled. Ideally, [...] way. Assessment & Plan (01/13/2023 10:30 AM METAL BONDER): The blood pressure is adequately controlled. Ideally, [...] way. Assessment & Plan (05/03/2022 2:57 PM METAL BONDER): The blood pressure is adequately controlled. Ideally, [...] way. Assessment & Plan (05/03/2021 11:08 AM METAL BONDER): The blood pressure is adequately controlled. Ideally, [...] Hypothyroidism Assessment & Plan (03/30/2024 12:50 PM METAL BONDER): Stable, continue levothyroxine Assessment & Plan (12/29/2023 1:24 PM CDT): Stable, continue levothyroxine Assessment & Plan (09/16/2023 10:46 AM CDT): Stable? Will recheck today. Assessment & Plan (01/13/2023 10:31 AM METAL BONDER): Stable, continue levothyroxine. Assessment & Plan (09/10/2022 3:15 PM CDT): Stable? Will recheck today. Assessment & Plan (05/03/2022 2:57 PM METAL BONDER): Stable? Will recheck today. Assessment & Plan (01/03/2022 1:24 PM CDT): Stable, continue levothyroxine Assessment & Plan (05/03/2021 11:08 AM METAL BONDER): Stable? Continue levothyroxine. Assessment & Plan (11/08/2020 [...] are stable, reviewed previous lipid levels in [facility]. Continue statin therapy. Lipitor (atorvastatin) Order for lipid panel was given today to be obtained. Pt voiced understanding of lab drawn and continuation of current medication regimen. Assessment & Plan (03/30/2024 12:49 PM METAL BONDER): Continue low fat eating- limit fried foods, [...] prescribed. Assessment & Plan (01/13/2023 10:30 AM METAL BONDER): Continue low fat eating- limit fried foods, [...] prescribed. Assessment & Plan (05/03/2022 2:58 PM METAL BONDER): Continue low fat eating- limit fried foods, [...] day. Assessment & Plan (05/03/2021 11:09 AM METAL BONDER): Continue low fat eating- limit fried foods, [...] attacks Assessment & Plan (03/30/2024 1:37 PM METAL BONDER): Not controlled, continue Lorazepam as needed Assessment & Plan (01/13/2023 10:32 AM METAL BONDER): Stable, continue Duloxetine and Lorazepam as needed. Assessment & Plan (09/10/2022 3:18 PM CDT): Improved. Continue Duloxetine and uses Lorazepam as needed. Try not take this medication daily or shelter is at all possible as it can lead to dependence/addiction/tolerance, memory issues and may cause depression shelter. Keep this medication out of the reach of other people. Do not drive or drink alcohol with this medication. Assessment & Plan (05/03/2022 3:00 PM METAL BONDER): Chronic and unchanged. Continue Lorazepam as needed. Assessment & Plan (01/03/2022 1:31 PM CDT): Stable, continue Lorazepam as needed Assessment & Plan (11/08/2020 5:25 PM CDT): Stable, continue Clonazepam Assessment & Plan (05/22/2020 8:01 PM CDT): Stable, continue Clonazepam as needed. Do not take this medication daily or superintendent container terminal is at all possible as it can lead to dependence/addiction/tolerance, memory issues and may cause depression superintendent container terminal. Keep this medication out of the reach [...] disease) Assessment & Plan (03/30/2024 12:53 PM METAL BONDER): Try to eat smaller more frequent meals. [...] weight. Assessment & Plan (01/13/2023 10:32 AM METAL BONDER): Try to eat smaller more frequent meals. [...] weight. Assessment & Plan (05/03/2022 2:59 PM METAL BONDER): Try to eat smaller more frequent meals. [...] weight. Assessment & Plan (05/03/2021 11:09 AM METAL BONDER): Try to eat smaller more frequent meals. [...] today. Assessment & Plan (03/30/2024 12:53 PM METAL BONDER): Continue to increase water intake. Limit use [...] weight. Assessment & Plan (01/13/2023 10:32 AM METAL BONDER): Continue to increase water intake. Limit use of NSAIDs including Ibuprofen, Aleve, Motrin, etc. Continue aerobic exercise and maintain a healthy weight. Assessment & Plan (09/10/2022 3:20 PM CDT): Continue to increase water intake. Limit use of NSAIDs including Ibuprofen, Aleve, Motrin, etc. Continue aerobic exercise and maintain a healthy weight. Assessment & Plan (05/03/2022 3:00 PM METAL BONDER): Continue to increase water intake. Limit use of NSAIDs including Ibuprofen, Aleve, Motrin, etc. Continue aerobic exercise and maintain a healthy weight. Assessment & Plan (01/03/2022 1:31 PM CDT): Continue to increase water intake. Limit use of NSAIDs including Ibuprofen, Aleve, Motrin, etc. Continue aerobic exercise and maintain a healthy weight. Assessment & Plan (05/03/2021 11:10 AM METAL BONDER): Continue to increase water intake. Limit use [...] (06/12/2018): Added automatically from request for surgery [id number] Encounter for weight management 06/05/2018 07/22/2024 Dyslipidemia [...] needed Assessment & Plan (04/10/2018 4:07 PM METAL BONDER): The patient has done very well overall [...] x-rays. Assessment & Plan (02/18/2018 11:58 AM METAL BONDER): Treatment options were discussed. The patient would [...] on calories. Most people should eat between 1289-7407 calories to lose weight. Decrease your carbohydrate [...] on calories. Most people should eat between 2861-5949 calories to lose weight. Decrease your carbohydrate [...] 07/22/2024 Assessment & Plan (04/15/2017 12:41 PM METAL BONDER): Will do ambulatory PT as she is [...] Department Care Team Description 08/09/2024 Orders Only [facility] Primary Care at [address] [phone] Tarcy Hernández NP 08/02/2024 Nurse Triage [facility] Primary Care at [address] [phone] Tracy Hernández NP 07/23/2024 Results Follow-Up [facility] Primary Care at [address] [phone] Tracy Hernández NP Comprehensive metabolic panel, Thyroid Function [place], Hemoglobin A1c, Additional followed-up results: 8 07/22/2024 10:15 AM CDT Lab [facility] Outpatient Lab at [address] [phone] 07/22/2024 10:12 AM CDT - 07/22/2024 11:59 PM CDT Hospital Encounter [address] [address] Hypertensive renal disease; Acquired hypothyroidism; Elevated glucose; Hypercholesterolemia Discharge Disposition: Discharge to home or self care 07/22/2024 9:30 AM CDT Office Visit [facility] Primary Care at [address] [phone] Tracy Hernández NP Acquired hypothyroidism (Primary Dx); Hypertensive renal disease; Hypercholesterolemia; Elevated glucose; Gastroesophageal reflux disease without esophagitis; Stage 3a chronic kidney disease (HCC); Generalized anxiety disorder with panic attacks; Major depression single episode, in partial remission; Primary insomnia 07/22/2024 Telephone [facility] [address] [address] Shanna Oakes TRAVELIFT OPERATOR Medical Question/Miscellaneous 07/05/[address] [address] Shanna Oakes NP Referral Request from Last 3 Months Immunizations [...] SINUS SURGERY 03/03/1992 - 03/02/1993 CATARACT EXTRACTION 2004, 2005 HYSTERECTOMY OVARIAN CYSTECTOMY 1982, 2003 ERCP 03/03/2002 - 03/02/2003 x 2 EYE [...] with panic attacks GERD (gastroesophageal reflux disease) 2016 CKD (chronic kidney disease) stage 3, GFR 30-59 ml/min ([facility]) Ocular migraine 03/13/2015 Cataract removed Brain concussion [...] Baljit Oral Rivera Arthritis Maternal Grandfather Raúl Kennymathieu Diabetes Maternal Grandmother Daisha Saba Heart attack [...] living age 57 Alzheimer's disease Son 3 anageovani webber jr. Relation Name Status Comments Father Baljit Oral Rivera Maternal Grandfather Raúl Kennymathieu Alive Maternal Grandmother Daisha Saba Alive Mother Sowmya Rivera Other Paternal Grandfather Costa Rivera Alive Paternal Grandmother Stephany Mercedez Rivera Alive Son 1 Alive Son 2 Alive Son 3 anageovani webber jr. Alive Social History Tobacco Use Types Packs/Day [...] file Legal Sex Female 11:38 PM METAL BONDER Gender Identity Female 08/02/2019 9:59 AM CDT [...] 02/06/1953 Zoster Vaccine (1 of 2) 02/06/1986 Osteoporosis Screening-Bone Density Scan 12/28/2021 12/29/2019, 04/01/2014, 04/01/2014 Covid-19 Vaccine (7 - 2023-2 5 season) 2024 02/16/2024, 02/16/2024, 01/20/2023, Additional history exists Well Visit 65+ 03/30/2025 03/30/2024, 01/01, 01/03/2022, Additional history exists Depression Screening 07/22/2025 07/22/2024, 03/30/2024, 01/13/2023, Additional history exists Fall Risk Assessment 07/22/2025 07/22/2024, 01/13/2023, 01/03/2022, Additional history exists DTaP/Tdap/Td Vaccine (3 - Td or Tdap) 08/22/2030 08/22/2020, 03/21/2014 Pneumococcal vaccine 65+ Completed 12/22/2014, 05/01 Influenza Vaccine Completed 12/29/2023, , 01/03/2022, Additional history exists Medical Devices Implanted Type Area Mobile Home Lot Utility Worker Device Identifier Shelf Expiration Date Model / Serial / Lot [employer] 6191-1-010 Simplex P Radiopaque Full Dose Cement Bone Sterile - [id number] Implanted:Qty: 1 on 07/15/2018 by Irving Mccauley MD at [facility] Bone Cement Left: Knee [employer] 07/31/2020 6191-1-010 / / [id number] [employer] 6191-1-010 Simplex P Radiopaque Full Dose Cement Bone Sterile - [id number] Implanted:Qty: 1 on 07/15/2018 by Irving Mccauley MD at [facility] Bone Cement Left: Knee [employer] 07/31/2020 6191-1-010 / / [id number] Baseplate Shoulder 15mm Length - [id number] Implanted:Qty: 1 on 12/10/2017 by Tayo Murray DO at [facility] Right: Shoulder [employer] Rhea 09/30/2022 GBP-0960-0 30-15 / / [id number] Screw 5.5mm 20mm Length Shoulder - [id number] Implanted:Qty: 1 on 12/10/2017 by Tayo Murray DO at [facility] Right: Shoulder [employer] Rhea 07/29/2022 SCW-0960-0 55-20 / / [id number] Screw And Cap 4.5mm 15mm Shoulder - [id number] Implanted:Qty: 2 on 12/10/2017 by Tayo Murray DO at [facility] Right: Shoulder [employer] Rhea 08/28/2020 SSC-0960-0 45-15 / / [id number] Screw And Cap 4.5mm 20mm Shoulder - [id number] Implanted:Qty: 1 on 12/10/2017 by Tayo Murray DO at [facility] Right: Shoulder [employer] Rhea 06/01/2022 SSC-0960-0 45-20 / / [id number] Screw And Cap 4.5mm 25mm Shoulder - [id number] Implanted:Qty: 1 on 12/10/2017 by Tayo Murray DO at [facility] Right: Shoulder [employer] Rhea 05/30/2022 SSC-0960-0 45-25 / / [id number] Glenosphere Shoulder 5mm Eccentric - [id number] Implanted:Qty: 1 on 12/10/2017 by Tayo Murray DO at [facility] Right: Shoulder [employer] Rhea 11/30/2021 GLS-0960-0 5E / / [id number] [employer] Rhea [id number] 1 Titan 16.5mm 12.1mm 90.4mm Press Fit 12 Spline Modular - [id number] Implanted:Qty: 1 on 12/10/2017 by Tayo Murray DO at [facility] Right: Shoulder [employer] Rhea 09/30/2021 STEM-0920- 025-11 / / [id number] Body Shoulder Small Reverse [id number] - [id number] Implanted:Qty: 1 on 12/10/2017 by Tayo Murray DO at [facility] Right: Shoulder [employer] Rhea 04/02/2022 BBS-0960-2 1SML / / [id number] Liner +0mm 9.6mm Standard 20mm 2.7mm 38.7mm Shoulder Humeral - [id number] - [id number] Implanted:Qty: 1 on 12/10/2017 by Tayo Murray DO at [facility] Right: Shoulder [employer]gra [employer] Rhea 04/30/2021 LNR-0960-0 0S / LNR-0960-0 0S / [id number] [employer]Rich[employer]/O rtho [id number] Shannan Ii [id number] Knee Oval Component Patellar Uhmwpe - [id number] Implanted:Qty: 1 on 07/15/2018 by Irving Mccauley MD at [facility] Left: Knee [employer]/ Ortho [id number] 04/25/2028 [id number] / / [id number] [employer]/O rtho [id number] Journey Knee Left 3 Baseplate Tibial - [id number] Implanted:Qty: 1 on 07/15/2018 by Irving Mccauley MD at [facility] Left: Knee [employer]/ Ortho [id number] 09/23/2027 [id number] / / [id number] [employer]/Rich[employer]/O rtho [id number] [facility] Ii Cruciate Retain Knee Left 4 Component Femoral Cocr - [id number] Implanted:Qty: 1 on 07/15/2018 by Irving Mccauley MD at [facility] Left: Knee [employer]/ Ortho [id number] 12/06/2027 [id number] / / [id number] [employer]/O rtho [id number] [facility] Ii Left 3-4 Deep [facility] Insert Articular Xlpe - [id number] Implanted:Qty: 1 on 07/15/2018 by Irving Mccauley MD at [facility] Left: Knee [employer]/ Ortho [id number] 03/09/2026 [id number] / / [id number] Explanted Type Area Mobile Home Lot Utility Worker Device Identifier Shelf Expiration Date Model / Serial / Lot [employer] [id number] 2mm 150mm Elbow Shoulder Guide Pin Orthopedic - [id number] Explanted:Qty: 2 on 12/10/2017 at [facility] Right: Shoulder Integra [employer] [id number] / / Procedures Procedure Name Priority [...] NP LAB BLOOD ORDERABLES Final Re sult [facility] [address] [address] Department [place] [address] * (ABNORMAL) Differential, auto (07/22/2024 10:12 AM CDT) Neutrophil abs 4.47 1.50 - 6.50 K/cumm Imm gran abs 0.03 0.00 - 0.10 K/cumm [facility] Lymphocyte abs 2.26 0.80 - 3.30 K/cumm [facility] Monocyte abs 0.86(H) 0.20 - 0.80 K/cumm [facility] Eosinophil abs 0.16 0.00 - 0.50 K/cumm [facility] Basophil abs 0.05 0.00 - 0.10 K/cumm [facility] Neutrophil pct 57.1 % [facility] Comment: Interpretive Data Percent cell count reference ranges are not reported, since discordance with absolute values may lead to misinterpretation of CBC data. Current Interpretive Data was last revised on 2017. Imm gran pct 0.4 % [facility] Comment: Interpretive Data Percent cell count reference ranges are not reported, since discordance with absolute values may lead to misinterpretation of CBC data. Current Interpretive Data was last revised on 2017. Lymphocyte pct 28.9 % [facility] Comment: Interpretive Data Percent cell count reference ranges are not reported, since discordance with absolute values may lead to misinterpretation of CBC data. Current Interpretive Data was last revised on 2017. Monocyte pct 11.0 % [facility] Comment: Interpretive Data Percent cell count reference ranges are not reported, since discordance with absolute values may lead to misinterpretation of CBC data. Current Interpretive Data was last revised on 2017. Eosinophil pct 2.0 % [facility] Comment: Interpretive Data Percent cell count reference ranges are not reported, since discordance with absolute values may lead to misinterpretation of CBC data. Current Interpretive Data was last revised on 2017. Basophil pct 0.6 % [facility] Comment: Interpretive Data Percent cell count reference ranges are not reported, since discordance with absolute values may lead to misinterpretation of CBC data. Current Interpretive Data was last revised on 2017. Blood 07/22/2024 10:1 2 AM CDT 07/22/2024 9:19 PM CDT Tracy Hernández NP LAB BLOOD ORDERABLES Final Re sult Performing Organization Address [facility] Co de Phone Number AAMIR [address] [address] [place] [address] * (ABNORMAL) Thyroid Function [place] (07/22/2024 10:12 AM CDT) TSH 20.00(H) 0.30 - 4.20 mcIUnit/mL Blood 07/22/2024 10:1 2 AM CDT 07/22/2024 9:19 PM CDT Tracy Hernández NP LAB BLOOD ORDERABLES Final Re sult Performing Organization Address [facility] Co de Phone Number AAMIR [address] [address] [place] [address] * (ABNORMAL) Urinalysis reflex to microscopic and culture Urine, clean voided (07/22/2024 10:12 AM CDT) Color, ur Yellow Yellow Clarity, ur Turbid(A) Clear [facility] Specific gravity, ur 1.013 1.003 - 1.030 [facility] pH, urine 6.5 [facility] Comment: Interpretive Data U rine pH is affected by diet, medications, systemic acid-base disturbances, and renal tubular function. pH may affect urinary stone formation. For example, urine pH below 6.0 may help reduce the tendency for calcium phosphate stones and pH greater than 6.0 may reduce the tendency for uric acid stone formation. Source: [facility] Current Interpretive Data was last revised on [...] MICROBIOLOGY - GENERAL OR DERABLES Final Result [facility] [address] [address] Department [place] [address] * (ABNORMAL) CBC with auto differential (07/22/2024 10:12 AM CDT) WBC 7.83 3.80 - 9.90 K/cumm Hgb 13.2 11.9 - 15.5 g/dL [facility] Hct 42.3 35.6 - 45.5 % [facility] Plt 212 150 - 400 K/cumm [facility] MPV 10.6 9.1 - 12.3 fL [facility] RBC 4.01 3.90 - 5.20 M/cumm [facility] MCV 105.5(H) 81.3 - 96.4 fL [facility] MCH 32.9 27.1 - 33.3 pg [facility] MCHC 31.2(L) 32.3 - 35.7 g/dL [facility] CH RDW CV 13.8 11.1 - 14.9 % [facility] CH RDW SD 54.0(H) 35.7 - 48.1 fL [facility] CH NRBC abs 0.00 0.00 - 0.01 K/cumm [facility] Blood 07/22/2024 10:1 2 AM CDT 07/22/2024 9:19 PM CDT Tracy Hernández NP LAB BLOOD ORDERABLES Final Re sult Performing Organization Address [facility] de Phone Number AAMIR ALAS [address] [address] [facility] [place] [address] * (ABNORMAL) Urinalysis, microscopic only (07/22/2024 10:12 AM CDT) WBC, ur >50(A) 0 - 5 /HPF RBC, ur 21-50(A) 0 - 2 /HPF [facility] CH Bacteria, ur 4+(A) [facility] CH Amorphous crystals, ur 1+(A) [facility] CH Culture Reflex Comment Reflex to urine culture will be performed. [facility] Urine, clean voided 07/22/2024 10:12 AM CDT 07/22/2024 9:19 PM CDT Tracy Hernández NP LAB URINE ORDERABLES Final Re sult Performing Organization Address [facility] de Phone Number AAMIR ALAS [address] [address] [place] [address] * (ABNORMAL) Urine culture Urine, clean voided (07/22/2024 10:12 AM CDT) Report Final Report: Greater than or equal to 100,000 colonies/mL of Escherichia coli Plus growth of clinically insignificant bacterial lashonda. (.) Comment:Testing performed by : [facility], [address] [place]., [address] Organism ESCHERICHIA COLI [facility] Organism PLUS GROWTH OF CLINICALLY INSIGNIFICANT LASHONDA. [facility] Urine, clean voided 07/22/2024 10:12 AM CDT 07/23/2024 2:19 AM CDT Narrative [facility] CH - 07/25/2024 12:17 PM CDT Urine culture reflexed based upon urinalysis results. Testing performed by [facility] ([phone]) Organism Antibiotic Method Susceptibility Escherichia coli Ampicillin [...] OR DERABLES Final Result Performing Organization Address [facility] Co de Phone Number [facility] [address] [address] [place] [address] * T4, free (07/22/2024 10:12 AM CDT) Free T4 1.09 0.90 - 1.70 ng/dL Blood 07/22/2024 10:1 2 AM CDT 07/22/2024 9:30 PM CDT Tracy Hernández NP LAB BLOOD ORDERABLES Final Re sult Performing Organization Address [facility] Phone Number [facility] [address] [address] [place] [address] * (ABNORMAL) Hemoglobin A1c (07/22/2024 10:12 AM CDT) Hgb A1C 5.9(H) 4.0 - 5.6 % Estimated Average Glucose 123 mg/dL AAMIR ALAS Comment: The ADA recommends reporting an estimated Average Glucose (eAG) with all Hemoglobin A1c results using the equation derived from a study of 507 normal and diabetic adults. Minority populations were underrepresented and children were not included. (Diabetes Care 31:9732-7634, 2008). The eAG is not equivalent to a fasting glucose. Blood 07/22/2024 10:1 2 AM CDT 07/22/2024 9:19 PM CDT Tracy Hernández NP LAB BLOOD ORDERABLES Final Re sult [facility] [address] [address] Department [place] [address] * (ABNORMAL) Lipid panel (07/22/2024 10:12 AM [...] 3. Rick Burgos et al. KANA Cardiol. 2019July 01;5(5):540-548. doi: 10.1001/[email or web address] [...] revised on 2017. Chol/HDL ratio 3 AAMIR Blood 07/22/2024 10:1 2 AM CDT 07/22/2024 9:19 PM CDT Tracy Hernández NP LAB BLOOD ORDERABLES Final Re sult AAMIR [address] Department [place] [address] * Comprehensive metabolic panel (07/22/2024 10:12 AM [...] BLOOD ORDERABLES Final Re sult AAMIR ALAS [address] [address] Department [place] [address] * Dexa Axial Skeleton Bone Density 1 [...] Dual x-ray absorptiometry (DEXA) was performed using [employer] system. GENERAL GUIDELINES: According to WHO guidelines, [...] Dual x-ray absorptiometry (DEXA) was performed using [employer] system. GENERAL GUIDELINES: According to WHO guidelines, [...] to Health Maintenance Insurance MEDICARE COMMERCIAL GENERIC IDDE MEDICARE COMMERCIAL GENERIC MEDICARE COMMERCIAL GENERIC Advance Directives For more information, please contact: [phone] Documents on File Type Date Recorded Patient Interior Assemblies Installer Expl anation ADVANCE DIRECTIVE 08/20/2019 2:35 PM Power of Metal Flow Coordinator-Medical ADVANCE DIRECTIVE 07/15/2018 11:14 AM ADVANCE DIRECTIVE [...] 3:25 PM 12/13/2017 4:26 PM Care Teams Dipping Machine Operator Relationship Specialty Start Date End Date Tracy Heránndez NP [address] [facility] [address] [place] [address] PCP - General Family Medicine 07/22/24
[2024-08-12 09:15] LABS: Estimated Glomerular Filt Rate 59
== END 2024-08-12 08:46 | disposition home or self-care (01) ==
PROVIDERS: PCP Nurse Practitioner Family; Visit Provider Nurse Practitioner Family
DX: K44.9 Diaphragmatic hernia without obstruction or gangrene (principal); K59.00 Constipation, unspecified
CPT/HCPCS: 74018; 74177; Q9967

== ENCOUNTER 2024-08-16 10:05 | Outpatient (CLI) | payer MEDICARE, MEDICAID, SELFPAY ==
[2024-08-16 10:30] LABS: Hematocrit 39.4 % (37.0-47.0); Mean Corpuscular Hemoglobin 32.9 pg (26-34); Mean Corpuscular Volume 99.7 fl (80-100); Mean Platelet Volume 10.3 fl (7.4-10.4); Platelet Count Result 190 k/mm3 (150-375); Red Blood Count 3.95 M/mm3 (4.2-5.4); Red Cell Distribution Width 13.3 % (11.5-14.5); White Blood Count 8.2 K/mm3 (4.5-10.0)
[2024-08-16 10:54] LABS: Alanine Aminotransferase 21 U/L (6-35); Albumin Level 4.2 g/dL (3.5-5.1); Alkaline Phosphatase 71 U/L (38-126); Aspartate Amino Transferase 38 U/L (14-36); Bilirubin,Total 0.7 mg/dL (0.2-1.3); Blood Urea Nitrogen 18 mg/dL (7-17); CRP < 0.5 mg/dL (<1.0); Calcium 9.5 mg/dL (8.4-10.2); Carbon Dioxide 27 mmol/L (22-30); Chloride 100 mmol/L (98-107); Estimated Glomerular Filt Rate > 60; Glucose 146 mg/dL (65-110); Potassium 3.8 mmol/L (3.4-5.0); Total Protein 7.3 g/dL (6.3-8.2)
--- OUTSIDE RECORDS SUMMARY | 2024-08-16 10:56 | XMS_ITS | Encounter Summary ---
Author Organization [facility] Healthcare Address [address] [place] [address] Care Team Providers Care Process Safety Engineering Technologist Name Role Phone Tracy Hernández NP Primary Care Provider [phone] Reason for Visit * Reason Onset Date Comments Medical Question/Miscellaneous 07/22/2024 Encounter Details Date Type Department Care Team (Late st Contact Info) Description 07/22/[address] [facility] [address] [facility] [address] [place] [id number] Shanna Oakes NP [address] [facility] [address], [place] [address] Medical Question/Miscellaneous Social History Tobacco [...] on file Legal Sex Female 11:38 PM LICENSE EXAMINER Gender Identity Female 08/02/2019 9:59 AM CDT Sexual Orientation Straight 06/03/2018 6: 51 PM CDT documented as of this encounter Miscellaneous Notes * Telephone Encounter - Shanna Oakes NP - 07/22/2024 1:25 PM CDT Noted. * Telephone Encounter - Betty Thurston - 07/22/2024 10:37 AM CDT Medical Question/Miscellaneous. Caller???s Concern: Patient is calling to give a message to WATCH ASSEMBLER Shanna Oakes. She stated I cannot get current dependable transportation to [place]. I have switched to Dr. Hernández through [facility] in [place]. I am sorry I had to change. I love you. Thank you. Does message need to be routed? Yes-Action Needed documented in this encounter Plan of Treatment Not on file documented as of this encounter Visit Diagnoses Not on filedocumented in this encounter Care Teams Process Safety Engineering Technologist Relationship Specialty Start Date End Date Tracy Hernández NP [address] [address] PCP - General Family Medicine 07/22/24 documented as of this encounter
--- OUTSIDE RECORDS SUMMARY | 2024-08-16 10:56 | XMS_ITS | Encounter Summary ---
Author Organization [facility] Address [address] [place] [address] Phone Care Team Providers Care Returned Telephone Equipment Appraiser Name Role Phone Matt Painting MD Primary Care Provider [phone] Tyesha Abarca DPT Unavailable Unavailable Yesi Cook DPT Unavailable Unavailable Renetta Pearl MA Unavailable [phone] Vernon Hernandez RN Unavailable [phone] Vernon Hernandez RN Unavailable [phone] Renetta Pearl MA Unavailable [phone] Shanna Oakes MEDICAL FEE CLERK Primary Care Provider [phone] Tracy Hernández MEDICAL FEE CLERK Primary Care Provider [phone] Encounter Details Date Type Department Care Team (Late st Contact Info) Description 06/12/2017 Orders Only [facility] ProviderChente MD [facility] [place] [address] Social History Tobacco Use Types Packs/Day Years Used Date Smoking Tobacco: Never Smokeless Tobacco: Never Alcohol Use Standard Drinks/Week Comments No 0 (1 standard drink = 0.6 oz pur e alcohol) Comments Unknown Sex and Gender Information Value Date Recorded Sex Assigned at Not on file Legal Sex Female 11:38 PM CHANGE RELEASE MANAGER Gender Identity Female 08/02/2019 9:59 AM CDT [...] on filedocumented in this encounter Care Teams Returned Telephone Equipment Appraiser Relationship Specialty Start Date End Date Matt Painting MD [address] [facility] [address] [place] [address] PCP - General 05/31/16 12/08/19 Shanna Oakes NP [address] [facility] [address] [place] [address] PCP - General Internal Medicine 12/09/19 07/21/24 Tracy Hernández NP [address] [facility] [address] [place] [address] PCP - General Family Medicine 07/22/24 Tyesha Abarca DPT Physical Therapist Physical Therapy 04/30/17 02/08/18 Yesi Cook DPT Physical Therapist Physical Therapy 07/30/17 03/06/20 Renetta Pearl MA [address] [facility] [address] [facility] [address] [place] [address] ACO Care Field Administrative Assistant 12/15/17 12/31/17 Vernon Hernandez, OPHELIA [address] [facility] [address] [place] [address] Railway Signal Operator 01/01/18 02/11/18 Vernon Hernandez RN [address] [facility] [address] [place] [address] [facility] Outpatient Fast Food Fry Cook 07/20/18 10/15/18 Renetta Pearl MA [address] [facility] [address] [place], [place] [id number] ACO Care Field Administrative Assistant 07/21/18 07/21/18 documented as of this encounter
--- OUTSIDE RECORDS SUMMARY | 2024-08-16 10:56 | XMS_ITS | Encounter Summary ---
Author Organization [facility] Healthcare Address [address] [place] [address] Care Team Providers Care Hay Stacker Operator Name Role Phone Yesi Cook DPT Unavailable Unavailable Shanna Oakes NP Primary Care Provider [phone] Tracy Hernández HR ADMINISTRATOR Primary Care Provider [phone] Encounter Details Date Type Department Care Team (Late st Contact Info) Description 12/28/2019 Telephone [facility] [address] [place] [id number] Melanie Del [place], Social History Tobacco Use [...] on file Legal Sex Female 11:38 PM RISK ADJUSTMENT SPECIALIST Gender Identity Female 08/02/2019 9:59 AM CDT Sexual Orientation Straight 06/03/2018 6: 51 PM CDT documented as of this encounter Plan of Treatment Not on file documented as of this encounter Visit Diagnoses Not on filedocumented in this encounter Care Teams Hay Stacker Operator Relationship Specialty Start Date End Date Shanna Oakes NP PCP - General Internal Medicine 12/09/19 07/21/24 Tracy Hernández NP [address] [address] PCP - General Family Medicine 07/22/24 Yesi Cook, VENITAT Physical Therapist Physical Therapy 07/30/17 03/06/20 documented as of this encounter
--- OUTSIDE RECORDS SUMMARY | 2024-08-16 10:56 | XMS_ITS | Encounter Summary ---
Author Organization [facility] Address [address] [place] [address] Phone Care Team Providers Care Warpman Name Role Phone Matt Painting MD Primary Care Provider [phone] Tyesha Abarca DPT Unavailable Unavailable Yesi Cook DPT Unavailable Unavailable Renetta Pearl MA Unavailable [phone] Vernon Hernandez RN Unavailable [phone] Vernon Hernandez RN Unavailable [phone] Renetta Pearl MA Unavailable [phone] Shanna Oakes RING PACKER Primary Care Provider [phone] Tracy Hernández RING PACKER Primary Care Provider [phone] Encounter Details Date Type Department Care Team (Late st Contact Info) Description 04/15/2017 Orders Only [facility] ProviderChente MD [facility] [place] [address] Social History Tobacco Use Types Packs/Day Years Used Date Smoking Tobacco: Never Smokeless Tobacco: Never Alcohol Use Standard Drinks/Week Comments No 0 (1 standard drink = 0.6 oz pur e alcohol) Comments Unknown Sex and Gender Information Value Date Recorded Sex Assigned at Not on file Legal Sex Female 11:38 PM CUPOLA TAPPER HELPER Gender Identity Female 08/02/2019 9:59 AM CDT Sexual Orientation Straight 06/03/2018 6: 51 PM CDT documented as of this encounter Plan of Treatment Not on file documented as of this encounter Procedures Procedure Name Priority Date/Time Associated Diagnosis Comments DISCHARGE LABORATORY CUMULATIVE REPORT 04/15/2017 12:00 AM CUPOLA TAPPER HELPER documented in this encounter Results * DISCHARGE LABORATORY CUMULATIVE REPORT (04/15/2017 12:00 AM CUPOLA TAPPER HELPER) Narrative 04/15/2017 12:00 AM CUPOLA TAPPER HELPER Ordered by an unspecified provider. us Historical Provider LAB BLOOD ORDERABLES Arline l Result documented in this encounter Visit Diagnoses Not on filedocumented in this encounter Care Teams Warpman Relationship Specialty Start Date End Date Matt Painting MD [address] [facility] [address] [place] [address] PCP - General 05/31/16 12/08/19 Shanna Oakes NP [address] [place] [address] [address] [place] [address] PCP - General Internal Medicine 12/09/19 07/21/24 Tracy Hernández NP [address] [facility] [address] [place] [address] PCP - General Family Medicine 07/22/24 Tyesha Abarca DPT Physical Therapist Physical Therapy 04/30/17 02/08/18 Yesi Cook DPT Physical Therapist Physical Therapy 07/30/17 03/06/20 Renetta Pearl MA [address] [place] [address] [address] [place] [address] ACO Care Waiter/Waitress Cafeteria 12/15/17 12/31/17 Vernon Hernandez, OPHELIA [address] [place] [address] [address] [place] [address] Diesel Technician Mechanic 01/01/18 02/11/18 Vernon Hernandez RN [address] [facility] [address] [place], [place] [id number] [facility] Outpatient Supervisor Twisting Department 07/20/18 10/15/18 Renetta Pearl MA [address] [facility] [address] [place], [place] [id number] ACO Care Waiter/Waitress Cafeteria 07/21/18 07/21/18 documented as of this encounter
--- OUTSIDE RECORDS SUMMARY | 2024-08-16 10:56 | XMS_ITS | Encounter Summary ---
Author Organization [facility] Healthcare Address [address] [place] [address] Care Team Providers Care Mortar Mixer Operator Name Role Phone Matt Painting MD Primary Care Provider Yesi Cook DPT Unavailable Unavailable Vernon Hernandez RN Unavailable Renetta Pearl MA Unavailable Shanna Oakes BIOMASS POWER PLANT SUPERINTENDENT Primary Care Provider Tracy Hernández BIOMASS POWER PLANT SUPERINTENDENT Primary Care Provider [phone] Encounter Details Date Type Department Care Team (Late st Contact Info) Description 06/24/2018 Documentation [facility] Case Management [address] [place] [id number] Opal Marsh MSW Social History Tobacco Use Types Packs/Day Years Used Date Smoking Tobacco: Never Smokeless Tobacco: Never Alcohol Use Standard Drinks/Week Comments No 0 (1 standard drink = 0.6 oz pur e alcohol) Comments No Sex and Gender Information Value Date Recorded Sex Assigned at Not on file Legal Sex Female 11:38 PM MUSIC ENGRAVER Gender Identity Female 08/02/2019 9:59 AM CDT [...] [facility] a [facility] Secondary choice is the [facility] in [place]. Pt informed that the referral will be sent upon admission for placement if PT recs SNF. SW will followafter surgery. documented in this encounter Plan of Treatment Not on file documented as of this encounter Visit Diagnoses Not on filedocumented in this encounter Care Teams Mortar Mixer Operator Relationship Specialty Start Date End Date Matt Painting MD [address] [facility] [address] [address] PCP - General 05/31/16 12/08/19 Shanna Oakes NP [address] [place] [address] [address] [place] [address] PCP - General Internal Medicine 12/09/19 07/21/24 Tracy Hernández NP [address] [facility] [address] [place] [address] PCP - General Family Medicine 07/22/24 Yesi Cook DPT Physical Therapist Physical Therapy 07/30/17 03/06/20 Vernon Hernandez RN [address] [place], [place] [address]R[address] [address] [facility] Outpatient Mortgage Lender 07/20/18 10/15/18 Renetta Pearl, SONIA [address] [place] [address] ACO Care Shadowgraph Scale Operator 07/21/18 07/21/18 documented as of this encounter
--- OUTSIDE RECORDS SUMMARY | 2024-08-16 10:57 | XMS_ITS | Referral Summary ---
Author Organization [facility] Address [address] [place] [address] Care Team Providers Care Architectural Design Lecturer Name Role Phone Tracy Hernández EXECUTIVE MANAGER Primary Care Provider [phone] Encounters Date Type Department Care Team Description 08/12/2024 Telephone [facility] Primary Care at [address] [phone] Tracy Hernández NP Symptom Based Call; Medical Question/Miscellaneous 08/09/2024 Orders Only [facility] Primary Care at [address] [address] Tracy Hernández NP 08/02/2024 Nurse Triage [facility] Primary Care at [address] [phone] Tracy Hernández EXECUTIVE MANAGER 07/23/2024 Results Follow-Up [facility] Primary Care at [address] [phone] Tracy Hernández NP Comprehensive metabolic panel, Thyroid Function Flathead, Hemoglobin A1c, Additional followed-up results: 8 07/22/2024 10:12 AM CDT - 07/22/2024 11:59 PM CDT Hospital Encounter [address] [place] [address] Hypertensive renal disease; Acquired hypothyroidism; Elevated glucose; Hypercholesterolemia Discharge Disposition: Discharge to home or self care 07/22/2024 Telephone [facility] [address] [place] [phone] Shanna Oakes NP Medical Question/Miscellaneous 07/22/2024 10:15 AM CDT Lab [facility] Outpatient Lab at [address] [phone] 07/22/2024 9:30 AM CDT Office Visit [facility] Primary Care at [address] [phone] Tracy Hernández NP Acquired hypothyroidism (Primary Dx); Hypertensive renal disease; Hypercholesterolemia; Elevated glucose; Gastroesophageal reflux disease without esophagitis; Stage 3a chronic kidney disease (HCC); Generalized anxiety disorder with panic attacks; Major depression single episode, in partial remission; Primary insomnia 07/05/2024 Telephone [facility] [address] [place] [phone] Shanna Oakes NP Referral Request from [...] 1 tablet (100 mcg total) by mouth organic search lead before breakfast 90 tablet 5 Active zolpidem [...] zolpidem. Assessment & Plan (03/30/2024 12:53 PM [employer]ORT INTER[employer]IP): Stable, continue Zolpidem Assessment & Plan (12/29/2023 1:26 PM CDT): Worse. Will switch to an ER Zolpidem. Dermatochalasis of both upper eyelids 10/15/2022 Assessment & Plan (10/16/2023 4:47 PM CDT): Pt not bothered, monitor Assessment & Plan (10/15/2022 12:55 PM CDT): Not v/s, monitor Atherosclerosis of aorta 05/09/2022 Overview (05/09/2022): 05/09/21- xray Assessment & Plan (03/30/2024 12:52 PM [employer]): Stable, continue aspirin and Atorvastatin Assessment & Plan (09/16/2023 10:46 AM CDT): Stable, continue Atorvastatin and aspirin. Assessment & Plan (01/13/2023 10:31 AM [employer]): Stable, continue aspirin and Atorvastatin Encounter for Medicare annual wellness exam 05/02 Assessment & Plan (03/30/2024 12:49 PM [employer]): Please see below for a list of your medical conditions and recommendations. Assessment & Plan (01/13/2023 10:30 AM [employer]IP): Please see below for a list of [...] 020 Assessment & Plan (03/30/2024 12:53 PM [employer]IP): Stable, continue aspirin and Atorvastatin Assessment & Plan (09/16/2023 10:47 AM CDT): Stable, continue Atorvastatin and aspirin Assessment & Plan (01/13/2023 10:32 AM [employer]IP): Stable, continue aspirin and Atorvastatin Assessment & Plan (01/03/2022 1:32 PM CDT): Stable, continue aspirin and Atorvastatin. Assessment & Plan (05/03/2021 11:10 AM [employer]IP): Stable, continue Atorvastatin and aspirin Assessment & [...] UTI Assessment & Plan (04/15/2017 12:43 PM [employer]): Having increased urinary frequency but no pain, feels similar to UTIs in the past. UA today with just trace blood, negative for leuks and nitrites Advised to keep hydrated and will send UA for culture BMI 28.0-28.9,adult 04/15/2017 Assessment & Plan (10/08/2017 11:47 AM CDT): Try to cut back on calories. Most people should eat between 1892-6057 calories to lose weight. Decrease your carbohydrate [...] help. Assessment & Plan (04/15/2017 11:14 AM [employer]): BMI Follow-up includes: nutrition counseling and exercise [...] management. Assessment & Plan (05/03/2021 11:10 AM [employer]): Stable, continue Gabapentin and Duloxetine Assessment & Plan (12/19/2019 7:35 PM CDT): Stable, continue duloxetine Assessment & Plan (06/14/2019 8:10 AM CDT): Requires chronic duloxetine and gabapentin therapy. Does see pain management at times. Assessment & Plan (04/15/2017 12:40 PM [employer]): Improved and using lidocaine patches which help. Suspect this is more from bulging disc than it is from UTI and patient agrees. Major depression single episode, in partial amanda ssion 08/28/2016 Assessment & Plan (03/30/2024 12:53 PM [employer]): Stable, continue Duloxetine Assessment & Plan (12/29/2023 1:26 PM CDT): Stable, continue Duloxetine Assessment & Plan (01/13/2023 10:33 AM [employer]): Stable, continue Duloxetine Assessment & Plan (09/10/2022 3:17 PM CDT): Improved. Continue Duloxetine Assessment & Plan (05/03/2022 2:59 PM [employer]): Stable, continue Duloxetine Assessment & Plan (01/03/2022 1:30 PM CDT): Intermittent. Continue Duloxetine. Assessment & Plan (05/03/2021 11:09 AM [employer]): Chronic and unchanged. Continue Duloxetine Assessment & [...] Duloxetine Assessment & Plan (02/16/2018 1:25 PM [employer]): Doing well with the clonazepam and duloxetine Assessment & Plan (04/15/2017 12:42 PM [employer]IP): Still teary in the room over the [...] disease Assessment & Plan (03/30/2024 12:49 PM [employer]IP): The blood pressure is adequately controlled. Ideally, [...] way. Assessment & Plan (01/13/2023 10:30 AM [employer]IP): The blood pressure is adequately controlled. Ideally, [...] way. Assessment & Plan (05/03/2022 2:57 PM [employer]IP): The blood pressure is adequately controlled. Ideally, [...] way. Assessment & Plan (05/03/2021 11:08 AM [employer]IP): The blood pressure is adequately controlled. Ideally, [...] Hypothyroidism Assessment & Plan (03/30/2024 12:50 PM [employer]): Stable, continue levothyroxine Assessment & Plan (12/29/2023 1:24 PM CDT): Stable, continue levothyroxine Assessment & Plan (09/16/2023 10:46 AM CDT): Stable? Will recheck today. Assessment & Plan (01/13/2023 10:31 AM [employer]): Stable, continue levothyroxine. Assessment & Plan (09/10/2022 3:15 PM CDT): Stable? Will recheck today. Assessment & Plan (05/03/2022 2:57 PM [employer]): Stable? Will recheck today. Assessment & Plan (01/03/2022 1:24 PM CDT): Stable, continue levothyroxine Assessment & Plan (05/03/2021 11:08 AM [employer]): Stable? Continue levothyroxine. Assessment & Plan (11/08/2020 [...] are stable, reviewed previous lipid [facility] in [facility]. Continue statin therapy. Lipitor (atorvastatin) Order for lipid panel was given today to be obtained. Pt voiced understanding of lab drawn and continuation of current medication regimen. Assessment & Plan (03/30/2024 12:49 PM [employer]IP): Continue low fat eating- limit fried foods, [...] prescribed. Assessment & Plan (01/13/2023 10:30 AM [employer]IP): Continue low fat eating- limit fried foods, [...] prescribed. Assessment & Plan (05/03/2022 2:58 PM [employer]IP): Continue low fat eating- limit fried foods, [...] day. Assessment & Plan (05/03/2021 11:09 AM [employer]IP): Continue low fat eating- limit fried foods, [...] attacks Assessment & Plan (03/30/2024 1:37 PM [employer]IP): Not controlled, continue Lorazepam as needed Assessment & Plan (01/13/2023 10:32 AM [employer]IP): Stable, continue Duloxetine and Lorazepam as needed. Assessment & Plan (09/10/2022 3:18 PM CDT): Improved. Continue Duloxetine and uses Lorazepam as needed. Try not take this medication daily or snf is at all possible as it can lead to dependence/addiction/tolerance, memory issues and may cause depression extermination inspector. Keep this medication out of the reach of other people. Do not drive or drink alcohol with this medication. Assessment & Plan (05/03/2022 3:00 PM [employer]): Chronic and unchanged. Continue Lorazepam as needed. Assessment & Plan (01/03/2022 1:31 PM CDT): Stable, continue Lorazepam as needed Assessment & Plan (11/08/2020 5:25 PM CDT): Stable, continue Clonazepam Assessment & Plan (05/22/2020 8:01 PM CDT): Stable, continue Clonazepam as needed. Do not take this medication daily or extermination inspector is at all possible as it can [...] disease) Assessment & Plan (03/30/2024 12:53 PM [employer]IP): Try to eat smaller more frequent meals. [...] weight. Assessment & Plan (01/13/2023 10:32 AM [employer] INTER[employer]IP): Try to eat smaller more frequent meals. [...] weight. Assessment & Plan (05/03/2022 2:59 PM [employer] INTER[employer]HIP): Try to eat smaller more frequent meals. [...] weight. Assessment & Plan (05/03/2021 11:09 AM [employer] INTER[employer]HIP): Try to eat smaller more frequent meals. [...] today. Assessment & Plan (03/30/2024 12:53 PM [employer] INTER[employer]HIP): Continue to increase water intake. Limit use [...] weight. Assessment & Plan (01/13/2023 10:32 AM [employer]HIP): Continue to increase water intake. Limit use of NSAIDs including Ibuprofen, Aleve, Motrin, etc. Continue aerobic exercise and maintain a healthy weight. Assessment & Plan (09/10/2022 3:20 PM CDT): Continue to increase water intake. Limit use of NSAIDs including Ibuprofen, Aleve, Motrin, etc. Continue aerobic exercise and maintain a healthy weight. Assessment & Plan (05/03/2022 3:00 PM SPORT INTERNSHIP): Continue to increase water intake. Limit use of NSAIDs including Ibuprofen, Aleve, Motrin, etc. Continue aerobic exercise and maintain a healthy weight. Assessment & Plan (01/03/2022 1:31 PM CDT): Continue to increase water intake. Limit use of NSAIDs including Ibuprofen, Aleve, Motrin, etc. Continue aerobic exercise and maintain a healthy weight. Assessment & Plan (05/03/2021 11:10 AM SPORT INTERNSHIP): Continue to increase water intake. Limit use [...] (06/12/2018): Added automatically from request for surgery [id number] Encounter for weight management 06/05/2018 07/22/2024 Dyslipidemia [...] needed Assessment & Plan (04/10/2018 4:07 PM [employer]): The patient has done very well overall [...] x-rays. Assessment & Plan (02/18/2018 11:58 AM [employer]HIP): Treatment options were discussed. The patient would [...] on calories. Most people should eat between 7195-2515 calories to lose weight. Decrease your carbohydrate [...] on calories. Most people should eat between 6721-8985 calories to lose weight. Decrease your carbohydrate [...] 07/22/2024 Assessment & Plan (04/15/2017 12:41 PM [employer]): Will do ambulatory PT as she is [...] bilateral medial rectus recess [address] iRce - doing well; no diplopia -follow Asteatosis [...] on file Legal Sex Female 11:38 PM [employer] Gender Identity Female 08/02/2019 9:59 AM CDT [...] on file Medical Devices Implanted Type Area Paralegal Legal Secretary Device Identifier Shelf Expiration Date Model / Serial / Lot [employer] 6191-1-010 Simplex P Radiopaque Full Dose Cement Bone Sterile - [id number] Implanted:Qty: 1 on 07/15/2018 by Irving Mccauley MD at [facility] Bone Cement Left: Knee [employer] 07/31/2020 6191-1-010 / / [id number] [employer] 6191-1-010 Simplex P Radiopaque Full Dose Cement Bone Sterile - [id number] Implanted:Qty: 1 on 07/15/2018 by Irving Mccauley MD at [facility] Bone Cement Left: Knee [employer] 07/31/2020 6191-1-010 / / [id number] Baseplate Shoulder 15mm Length - [id number] Implanted:Qty: 1 on 12/10/2017 by Tayo Murray DO at [facility] Right: Shoulder [employer] Rhea 09/30/2022 GBP-0960-0 30-15 / / [id number] Screw 5.5mm 20mm Length Shoulder - [id number] Implanted:Qty: 1 on 12/10/2017 by Tayo Murray DO at [facility] Right: Shoulder [employer] Rhea 07/29/2022 SCW-0960-0 55-20 / / [id number] Screw And Cap 4.5mm 15mm Shoulder - [id number] Implanted:Qty: 2 on 12/10/2017 by Tayo Murray DO at [facility] Right: Shoulder [employer] Rhea 08/28/2020 SSC-0960-0 45-15 / / [id number] Screw And Cap 4.5mm 20mm Shoulder - [id number] Implanted:Qty: 1 on 12/10/2017 by Tayo Murray DO at [facility] Right: Shoulder [employer] Rhea 06/01/2022 SSC-0960-0 45-20 / / [id number] Screw And Cap 4.5mm 25mm Shoulder - [id number] Implanted:Qty: 1 on 12/10/2017 by Tayo Murray DO at [facility] Right: Shoulder [employer] Rhea 05/30/2022 SSC-0960-0 45-25 / / [id number] Glenosphere Shoulder 5mm Eccentric - [id number] Implanted:Qty: 1 on 12/10/2017 by Tayo Murray DO at [facility] Right: Shoulder [employer] Rhea 11/30/2021 GLS-0960-0 5E / / [id number] Inte[employer] Rhea [id number] Titan 16.5mm 12.1mm 90.4mm Press Fit 12 Spline Modular - [id number] Implanted:Qty: 1 on 12/10/2017 by Tayo Murray DO at [facility] Right: Shoulder [employer] Rhea 09/30/2021 STEM-0920- 025-11 / / [id number] Body Shoulder Small Reverse [id number] - [id number] Implanted:Qty: 1 on 12/10/2017 by Tayo Murray DO at [facility] Right: Shoulder [employer] Rhea 04/02/2022 BBS-0960-2 1SML / / [id number] Liner +0mm 9.6mm Standard 20mm 2.7mm 38.7mm Shoulder Humeral - [id number] - [id number] Implanted:Qty: 1 on 12/10/2017 by Tayo Murray DO at [facility] Right: Shoulder Integra [employer] Rhea 04/30/2021 LNR-0960-0 0S / LNR-0960-0 0S / [id number] [employer]/O rtho [id number] Shannan Ii [id number] Knee Oval Component Patellar Uhmwpe - [id number] Implanted:Qty: 1 on 07/15/2018 by Irving Mccauley MD at [facility] Left: Knee [employer]/ Ortho [id number] 04/25/2028 [id number] / / [id number] [employer]/O rtho [id number] Journey Knee Left 3 Baseplate Tibial - [id number] Implanted:Qty: 1 on 07/15/2018 by Irving Mccauley MD at [facility] Left: Knee [employer]/ Ortho [id number] 09/23/2027 [id number] / / [id number] [employer]/O rtho [id number] Journey Ii Cruciate Retain Knee Left 4 Component Femoral Cocr - [id number] Implanted:Qty: 1 on 07/15/2018 by Irving Mccauley MD at [facility] Left: Knee [employer]/ Ortho [id number] 12/06/2027 [id number] / / [id number] [employer]/O rtho [id number] Journey Ii Left 3-4 Deep [facility] Insert Articular Xlpe - [id number] Implanted:Qty: 1 on 07/15/2018 by Irving Mccauley MD at [facility] Left: Knee [employer]/ Ortho [id number] 03/09/2026 [id number] / / [id number] Explanted Type Area Paralegal Legal Secretary Device Identifier Shelf Expiration Date Model / Serial / Lot Integra [employer] [id number] 2mm 150mm Elbow Shoulder Guide Pin Orthopedic - [id number] Explanted:Qty: 2 on 12/10/2017 at [facility] Right: Shoulder [employer] [id number] / / Procedures Procedure Name Priority [...] BLOOD ORDERABLES Final Re sult AAMIR ALAS [address] Department [place] [address] * (ABNORMAL) Differential, auto (07/22/2024 10:12 AM CDT) Neutrophil abs 4.47 1.50 - 6.50 K/cumm Imm gran abs 0.03 0.00 - 0.10 K/cumm [facility] Lymphocyte abs 2.26 0.80 - 3.30 K/cumm [facility] Monocyte abs 0.86(H) 0.20 - 0.80 K/cumm [facility] Eosinophil abs 0.16 0.00 - 0.50 K/cumm [facility] Basophil abs 0.05 0.00 - 0.10 K/cumm [facility] Neutrophil pct 57.1 % [facility] Comment: Interpretive Data Percent cell count reference ranges are not reported, since discordance with absolute values may lead to misinterpretation of CBC data. Current Interpretive Data was last revised on 2017. Imm gran pct 0.4 % [facility] Comment: Interpretive Data Percent cell count reference ranges are not reported, since discordance with absolute values may lead to misinterpretation of CBC data. Current Interpretive Data was last revised on 2017. Lymphocyte pct 28.9 % [facility] Comment: Interpretive Data Percent cell count reference ranges are not reported, since discordance with absolute values may lead to misinterpretation of CBC data. Current Interpretive Data was last revised on 2017. Monocyte pct 11.0 % [facility] Comment: Interpretive Data Percent cell count reference ranges are not reported, since discordance with absolute values may lead to misinterpretation of CBC data. Current Interpretive Data was last revised on 2017. Eosinophil pct 2.0 % [facility] Comment: Interpretive Data Percent cell count reference ranges are not reported, since discordance with absolute values may lead to misinterpretation of CBC data. Current Interpretive Data was last revised on 2017. Basophil pct 0.6 % [facility] Comment: Interpretive Data Percent cell count reference ranges are not reported, since discordance with absolute values may lead to misinterpretation of CBC data. Current Interpretive Data was last revised on 2017. Blood 07/22/2024 10:1 2 AM CDT 07/22/2024 9:19 PM CDT us Tracy Hernández NP LAB BLOOD ORDERABLES Final Re sult AAMIR EVETTE [address] Department [place] [address] * (ABNORMAL) Thyroid Function Flathead (07/22/2024 10:12 AM CDT) TSH 20.00(H) 0.30 - 4.20 mcIUnit/mL Blood 07/22/2024 10:1 2 AM CDT 07/22/2024 9:19 PM CDT Tracy Hernández NP LAB BLOOD ORDERABLES Final Re sult Performing Organization Address City/[facility]/ZIP Co de Phone Number AAMIR [address] [address] Department [place] [address] * (ABNORMAL) Urinalysis reflex to microscopic and [...] tendency for uric acid stone formation. Source: [facility] M2M Solution Current Interpretive Data was last revised on [...] OR DERABLES Final Result Performing Organization Address City/[facility]/ZIP Co de Phone Number AAMIR ALAS [address] Department [place] [address] * (ABNORMAL) CBC with auto differential (07/22/2024 [...] BLOOD ORDERABLES Final Re sult AAMIR ALAS [address] Department [place] [address] * (ABNORMAL) Urinalysis, microscopic only (07/22/2024 10:12 AM CDT) Pathologist [facility] WBC, ur >50(A) 0 - 5 /HPF RBC, ur 21-50(A) 0 - 2 /HPF [facility] Bacteria, ur 4+(A) [facility] Amorphous crystals, ur 1+(A) [facility] Culture Reflex Comment Reflex to urine culture will be performed. [facility] Urine, clean voided 07/22/2024 10:12 AM CDT 07/22/2024 9:19 PM CDT us Tracy Hernández NP LAB URINE ORDERABLES Final Re sult AAMIR ALAS [address] Department [place] [address] * (ABNORMAL) Urine culture Urine, clean voided (07/22/2024 10:12 AM CDT) Report Final Report: Greater than or equal to 100,000 colonies/mL of Escherichia coli Plus growth of clinically insignificant bacterial lashonda. (.) Comment:Testing performed by : [facility], [address] [place]., [address] Organism ESCHERICHIA COLI AAMIR Organism PLUS GROWTH OF CLINICALLY INSIGNIFICANT LASHONDA. AAMIR Urine, clean voided 07/22/2024 10:12 AM CDT 07/23/2024 2:19 AM CDT Narrative AAMIR - 07/25/2024 12:17 PM CDT Urine culture reflexed based upon urinalysis results. Testing performed by [facility] ([phone]) Organism Antibiotic Method Susceptibility Escherichia coli Ampicillin [...] GENERAL OR DERABLES Final Result AAMIR ALAS [address] Department [place] [address] * T4, free (07/22/2024 10:12 AM CDT) Free T4 1.09 0.90 - 1.70 ng/dL Blood 07/22/2024 10:1 2 AM CDT 07/22/2024 9:30 PM CDT Tracy Hernández NP LAB BLOOD ORDERABLES Final Re sult Performing Organization Address [facility] de Phone Number AAMIR ALAS [address] [address] [facility] [place] [address] * (ABNORMAL) Hemoglobin A1c (07/22/2024 10:12 AM CDT) Hgb A1C 5.9(H) 4.0 - 5.6 % Estimated Average Glucose 123 mg/dL AAMIR ALAS Comment: The ADA recommends reporting an estimated Average Glucose (eAG) with all Hemoglobin A1c results using the equation derived from a study of 507 normal and diabetic adults. Minority populations were underrepresented and children were not included. (Diabetes Care 31:2988-6351, 2008). The eAG is not equivalent to a fasting glucose. Blood 07/22/2024 10:1 2 AM CDT 07/22/2024 9:19 PM CDT Tracy Hernández NP LAB BLOOD ORDERABLES Final Re sult Performing Organization Address [facility] de Phone Number AAMIR ALAS [address] [facility] [place] [address] * (ABNORMAL) Lipid panel (07/22/2024 10:12 AM [...] on 2017. HDL 69 >=40 mg/dL AAMIR Comment: Interpretive Data Ages < [...] on 2023. Non-HDL Cholesterol 126 mg/dL AAMIR Comment: Interpretive Data Ages < [...] NP LAB BLOOD ORDERABLES Final Re sult [facility] [address] [address] Department [place] [address] * Comprehensive metabolic panel (07/22/2024 10:12 AM CDT) Sodium 140 135 - 145 mmol/L Potassium, pl 3.9 3.3 - 4.9 mmol/L [facility] Chloride 99 97 - 110 mmol/L [facility] CO2 28 22 - 32 mmol/L [facility] Anion gap 13 2 - 15 mmol/L [facility] BUN 14 6 - 25 mg/dL [facility] Creatinine 0.76 0.60 - 1.10 mg/dL [facility] Glucose 107 70 - 199 mg/dL [facility] Comment: Interpretive Data Fasting glucose >/= 126 [...] BLOOD ORDERABLES Final Re sult AAMIR ALAS [address] Department [place] [address] * Dexa Axial Skeleton Bone Density 1 [...] Dual x-ray absorptiometry (DEXA) was performed using [employer] system. GENERAL GUIDELINES: According to WHO guidelines, [...] Dual x-ray absorptiometry (DEXA) was performed using [employer] system. GENERAL GUIDELINES: According to WHO guidelines, [...] signed by: Pranay Zavala M.D. Shanna Oakes EXECUTIVE MANAGER IMG DXA PROCEDURES Final Resul t from Last 3 Months or Most Recently Relevant to Health Maintenance Insurance MEDICARE COMMERCIAL GENERIC [facility] MEDICARE COMMERCIAL GENERIC MEDICARE COMMERCIAL GENERIC Advance Directives For more information, please contact: [phone] Documents on File Type Date Recorded Patient School Based Therapist Expl anation ADVANCE DIRECTIVE 08/20/2019 2:35 PM Power of [employer] Driver-Medical ADVANCE DIRECTIVE 07/15/2018 11:14 AM ADVANCE DIRECTIVE [...] 3:25 PM 12/13/2017 4:26 PM Care Teams Architectural Design Lecturer Relationship Specialty Start Date End Date Tracy Hernández NP [address] [facility] [address] [place] [address] PCP - General Family Medicine 07/22/24
--- OUTSIDE RECORDS SUMMARY | 2024-08-16 10:57 | XMS_ITS | Encounter Summary ---
Author Organization [facility] Healthcare Address [address] [place] [address] Care Team Providers Care Acetylene Torch Burner Name Role Phone Shanna Oakes NP Primary Care Provider [phone] Tracy Hernández HELPER DRIVER Primary Care Provider [phone] Encounter Details Date Type Department Care Team (Late st Contact Info) Description 12/20/[address] [facility] - Interventional Radiology [address] [place] [address] Juanis Mejia RN Social History [...] on file Legal Sex Female 11:38 PM SHIP OFFICER Gender Identity Female 08/02/2019 9:59 AM CDT Sexual Orientation Straight 06/03/2018 6: 51 PM CDT documented as of this encounter Plan of Treatment Not on file documented as of this encounter Visit Diagnoses Not on filedocumented in this encounter Care Teams Acetylene Torch Burner Relationship Specialty Start Date End Date Shanna Oakes NP PCP - General Internal Medicine 12/09/19 07/21/24 Tracy Hernández NP [address] [address] PCP - General Family Medicine 07/22/24 documented as of this encounter
--- OUTSIDE RECORDS SUMMARY | 2024-08-16 10:57 | XMS_ITS | Encounter Summary ---
Author Organization [facility] Healthcare Address [address] [place] [address] Care Team Providers Care Tire Man Name Role Phone Matt Painting MD Primary Care Provider [phone] Tyesha Abarca DPT Unavailable Unavailable Yesi Cook DPT Unavailable Unavailable Renetta Pearl MA Unavailable [phone] Vernon Hernandez RN Unavailable [phone] Vernon Hernandez RN Unavailable [phone] Renetta Pearl MA Unavailable [phone] Shanna Oakes MUFFLE OPERATOR Primary Care Provider [phone] Tracy Hernández MUFFLE OPERATOR Primary Care Provider [phone] Encounter Details Date Type Department Care Team (Late st Contact Info) Description 11/28/2017 Documentation [facility] Case Management [address] [place] [address] Opal Marsh MSW Social History Tobacco Use Types Packs/Day Years Used Date Smoking Tobacco: Never Smokeless Tobacco: Never Alcohol Use Standard Drinks/Week Comments No 0 (1 standard drink = 0.6 oz pur e alcohol) Comments Unknown Sex and Gender Information Value Date Recorded Sex Assigned at Not on file 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 [place] [address] PCP - General Internal Medicine 12/09/19 07/21/24 Tracy Hernández NP [address] [facility] [address] [place] [address] PCP - General Family Medicine 07/22/24 Tyesha Abarca, KIMBERLY Physical Therapist Physical Therapy 04/30/17 02/08/18 Joyce, Yesi E., DPT Physical Therapist Physical Therapy 07/30/17 03/06/20 Renetta Pearl MA [address] [place] [address] ACO Care Credit Report Checker 12/15/17 12/31/17 Vernon Hernandez RN [address] [place] [address] [address] [place], [place] [id number] Associate Director Of Sales 01/01/18 02/11/18 Vernon Hernandez RN [address] [place] [address] [address] [place], [place] [id number] CJR Outpatient Coal Digger 07/20/18 10/15/18 Renetta Pearl MA [address] [place] [address] ACO Care Credit Report Checker 07/21/18 07/21/18 documented as of this encounter
--- OUTSIDE RECORDS SUMMARY | 2024-08-16 10:57 | XMS_ITS | Encounter Summary ---
Author Organization [facility] Healthcare Address [address] [place] [address] Care Team Providers Care Compliance Analyst Name Role Phone Tracy Hernández NP Primary Care Provider [phone] Reason for Visit * Reason Onset Date Comments Symptom Based Call 08/12/2024 Medical Question/Miscellaneous 08/12/2024 Encounter Details Date Type Department Care Team (Late st Contact Info) Description 08/12/2024 Telephone [facility] Medical Group Primary Care at [address] [address] Tracy Hernández NP [address] [place] [address] [address] [place] [address] Symptom Based Call; Medical Question/Miscellaneous Social History Tobacco Use Types [...] on file 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 Does message need to be routed? Yes-FYI Only * Telephone Encounter - Tracy Hernández NP - 08/12/2024 10:18 AM CDT Who does she see? Can we try to reach out to them? Call her urologist. Does she have an appointment? I think she use to be on a preventative and now she's not? * Telephone Encounter - Mulu Alonso MA - 08/12/2024 9:44 AM CDT Patient has a urologist through [facility] it looks like * Telephone Encounter - Timothy Donahue - 08/12/2024 9:37 AM CDT Symptom Based Call Chief Complaint(s): UTI and dehydration Duration: 4 weeks What type of symptom(s) is the patient experiencing? Red Flag. Is the patient concerned they are experiencing a medical emergency requiring an ambulance? No Additional Comments: Patient prescribed antibiotics several times and still has the same UTI symptoms as noted in Nurse Triage message dated 08/02/24. She is requesting cristina back to discuss next steps or lab orders Sending high priority request Does message need to be routed? Yes-Action Needed documented in this encounter Plan of Treatment Not on file documented as of this encounter Visit Diagnoses Not on filedocumented in this encounter Care Teams Compliance Analyst Relationship Specialty Start Date End Date Tracy Hernández NP [address] [facility] [address] [place] [address] PCP - General Family Medicine 07/22/24 documented as of this encounter
--- OUTSIDE RECORDS SUMMARY | 2024-08-16 10:57 | XMS_ITS | Encounter Summary ---
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 Warm transferred. Does message need to be routed? No Reason for Warm Transfer: Symptoms: Patient has Red flag symptoms, shed hand evaluated patient and directed patient to call [...] Tract Infection on Antibiotic Follow-up Call - [id number] * Telephone Encounter - Odette Zimmer RN [...] on filedocumented in this encounter Care Teams Director Physical Therapy Relationship Specialty Start Date End Date Tracy Hernández NP [address] [address] PCP - General Family Medicine 07/22/24 documented as of this encounter
--- OUTSIDE RECORDS SUMMARY | 2024-08-16 10:57 | XMS_ITS | Clinical Summary ---
Author Organization [facility] Address [address] [place] [address] Care Team Providers Care Taxation Economist Name Role Phone Tracy Hernández NP Primary Care Provider [phone] Allergies Active Allergy Reactions Criticality Noted Date [...] 1 tablet (100 mcg total) by mouth game author before breakfast 90 tablet 5 Active zolpidem [...] zolpidem. Assessment & Plan (03/30/2024 12:53 PM FORMS ANALYSIS MANAGER): Stable, continue Zolpidem Assessment & Plan (12/29/2023 1:26 PM CDT): Worse. Will switch to an ER Zolpidem. Dermatochalasis of both upper eyelids 10/15/2022 Assessment & Plan (10/16/2023 4:47 PM CDT): Pt not bothered, monitor Assessment & Plan (10/15/2022 12:55 PM CDT): Not v/s, monitor Atherosclerosis of aorta 05/09/2022 Overview (05/09/2022): 05/09/21- xray Assessment & Plan (03/30/2024 12:52 PM FORMS ANALYSIS MANAGER): Stable, continue aspirin and Atorvastatin Assessment & Plan (09/16/2023 10:46 AM CDT): Stable, continue Atorvastatin and aspirin. Assessment & Plan (01/13/2023 10:31 AM FORMS ANALYSIS MANAGER): Stable, continue aspirin and Atorvastatin Encounter for Medicare annual wellness exam 05/02 Assessment & Plan (03/30/2024 12:49 PM FORMS ANALYSIS MANAGER): Please see below for a list of your medical conditions and recommendations. Assessment & Plan (01/13/2023 10:30 AM FORMS ANALYSIS MANAGER): Please see below for a list of [...] 020 Assessment & Plan (03/30/2024 12:53 PM FORMS ANALYSIS MANAGER): Stable, continue aspirin and Atorvastatin Assessment & Plan (09/16/2023 10:47 AM CDT): Stable, continue Atorvastatin and aspirin Assessment & Plan (01/13/2023 10:32 AM FORMS ANALYSIS MANAGER): Stable, continue aspirin and Atorvastatin Assessment & Plan (01/03/2022 1:32 PM CDT): Stable, continue aspirin and Atorvastatin. Assessment & Plan (05/03/2021 11:10 AM FORMS ANALYSIS MANAGER): Stable, continue Atorvastatin and aspirin Assessment & [...] UTI Assessment & Plan (04/15/2017 12:43 PM FORMS ANALYSIS MANAGER): Having increased urinary frequency but no pain, feels similar to UTIs in the past. UA today with just trace blood, negative for leuks and nitrites Advised to keep hydrated and will send UA for culture BMI 28.0-28.9,adult 04/15/2017 Assessment & Plan (10/08/2017 11:47 AM CDT): Try to cut back on calories. Most people should eat between 2537-3095 calories to lose weight. Decrease your carbohydrate [...] help. Assessment & Plan (04/15/2017 11:14 AM FORMS ANALYSIS MANAGER): BMI Follow-up includes: nutrition counseling and exercise [...] management. Assessment & Plan (05/03/2021 11:10 AM FORMS ANALYSIS MANAGER): Stable, continue Gabapentin and Duloxetine Assessment & Plan (12/19/2019 7:35 PM CDT): Stable, continue duloxetine Assessment & Plan (06/14/2019 8:10 AM CDT): Requires chronic duloxetine and gabapentin therapy. Does see pain management at times. Assessment & Plan (04/15/2017 12:40 PM FORMS ANALYSIS MANAGER): Improved and using lidocaine patches which help. Suspect this is more from bulging disc than it is from UTI and patient agrees. Major depression single episode, in partial amanda ssion 08/28/2016 Assessment & Plan (03/30/2024 12:53 PM FORMS ANALYSIS MANAGER): Stable, continue Duloxetine Assessment & Plan (12/29/2023 1:26 PM CDT): Stable, continue Duloxetine Assessment & Plan (01/13/2023 10:33 AM FORMS ANALYSIS MANAGER): Stable, continue Duloxetine Assessment & Plan (09/10/2022 3:17 PM CDT): Improved. Continue Duloxetine Assessment & Plan (05/03/2022 2:59 PM FORMS ANALYSIS MANAGER): Stable, continue Duloxetine Assessment & Plan (01/03/2022 1:30 PM CDT): Intermittent. Continue Duloxetine. Assessment & Plan (05/03/2021 11:09 AM FORMS ANALYSIS MANAGER): Chronic and unchanged. Continue Duloxetine Assessment & [...] Duloxetine Assessment & Plan (02/16/2018 1:25 PM FORMS ANALYSIS MANAGER): Doing well with the clonazepam and duloxetine Assessment & Plan (04/15/2017 12:42 PM FORMS ANALYSIS MANAGER): Still teary in the room over the [...] disease Assessment & Plan (03/30/2024 12:49 PM FORMS ANALYSIS MANAGER): The blood pressure is adequately controlled. Ideally, [...] way. Assessment & Plan (01/13/2023 10:30 AM FORMS ANALYSIS MANAGER): The blood pressure is adequately controlled. Ideally, [...] way. Assessment & Plan (05/03/2022 2:57 PM FORMS ANALYSIS MANAGER): The blood pressure is adequately controlled. Ideally, [...] way. Assessment & Plan (05/03/2021 11:08 AM FORMS ANALYSIS MANAGER): The blood pressure is adequately controlled. Ideally, [...] Hypothyroidism Assessment & Plan (03/30/2024 12:50 PM FORMS ANALYSIS MANAGER): Stable, continue levothyroxine Assessment & Plan (12/29/2023 1:24 PM CDT): Stable, continue levothyroxine Assessment & Plan (09/16/2023 10:46 AM CDT): Stable? Will recheck today. Assessment & Plan (01/13/2023 10:31 AM FORMS ANALYSIS MANAGER): Stable, continue levothyroxine. Assessment & Plan (09/10/2022 3:15 PM CDT): Stable? Will recheck today. Assessment & Plan (05/03/2022 2:57 PM FORMS ANALYSIS MANAGER): Stable? Will recheck today. Assessment & Plan (01/03/2022 1:24 PM CDT): Stable, continue levothyroxine Assessment & Plan (05/03/2021 11:08 AM FORMS ANALYSIS MANAGER): Stable? Continue levothyroxine. Assessment & Plan (11/08/2020 [...] are stable, reviewed previous lipid levels in [facility]. Continue statin therapy. Lipitor (atorvastatin) Order for lipid panel was given today to be obtained. Pt voiced understanding of lab drawn and continuation of current medication regimen. Assessment & Plan (03/30/2024 12:49 PM FORMS ANALYSIS MANAGER): Continue low fat eating- limit fried foods, [...] prescribed. Assessment & Plan (01/13/2023 10:30 AM FORMS ANALYSIS MANAGER): Continue low fat eating- limit fried foods, [...] prescribed. Assessment & Plan (05/03/2022 2:58 PM FORMS ANALYSIS MANAGER): Continue low fat eating- limit fried foods, [...] day. Assessment & Plan (05/03/2021 11:09 AM FORMS ANALYSIS MANAGER): Continue low fat eating- limit fried foods, [...] attacks Assessment & Plan (03/30/2024 1:37 PM FORMS ANALYSIS MANAGER): Not controlled, continue Lorazepam as needed Assessment & Plan (01/13/2023 10:32 AM FORMS ANALYSIS MANAGER): Stable, continue Duloxetine and Lorazepam as needed. Assessment & Plan (09/10/2022 3:18 PM CDT): Improved. Continue Duloxetine and uses Lorazepam as needed. Try not take this medication daily or assisted is at all possible as it can lead to dependence/addiction/tolerance, memory issues and may cause depression assisted. Keep this medication out of the reach of other people. Do not drive or drink alcohol with this medication. Assessment & Plan (05/03/2022 3:00 PM FORMS ANALYSIS MANAGER): Chronic and unchanged. Continue Lorazepam as needed. Assessment & Plan (01/03/2022 1:31 PM CDT): Stable, continue Lorazepam as needed Assessment & Plan (11/08/2020 5:25 PM CDT): Stable, continue Clonazepam Assessment & Plan (05/22/2020 8:01 PM CDT): Stable, continue Clonazepam as needed. 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 Keep this medication out of the reach [...] disease) Assessment & Plan (03/30/2024 12:53 PM FORMS ANALYSIS MANAGER): Try to eat smaller more frequent meals. [...] weight. Assessment & Plan (01/13/2023 10:32 AM FORMS ANALYSIS MANAGER): Try to eat smaller more frequent meals. [...] weight. Assessment & Plan (05/03/2022 2:59 PM FORMS ANALYSIS MANAGER): Try to eat smaller more frequent meals. [...] weight. Assessment & Plan (05/03/2021 11:09 AM FORMS ANALYSIS MANAGER): Try to eat smaller more frequent meals. [...] today. Assessment & Plan (03/30/2024 12:53 PM FORMS ANALYSIS MANAGER): Continue to increase water intake. Limit use [...] weight. Assessment & Plan (01/13/2023 10:32 AM FORMS ANALYSIS MANAGER): Continue to increase water intake. Limit use of NSAIDs including Ibuprofen, Aleve, Motrin, etc. Continue aerobic exercise and maintain a healthy weight. Assessment & Plan (09/10/2022 3:20 PM CDT): Continue to increase water intake. Limit use of NSAIDs including Ibuprofen, Aleve, Motrin, etc. Continue aerobic exercise and maintain a healthy weight. Assessment & Plan (05/03/2022 3:00 PM FORMS ANALYSIS MANAGER): Continue to increase water intake. Limit use of NSAIDs including Ibuprofen, Aleve, Motrin, etc. Continue aerobic exercise and maintain a healthy weight. Assessment & Plan (01/03/2022 1:31 PM CDT): Continue to increase water intake. Limit use of NSAIDs including Ibuprofen, Aleve, Motrin, etc. Continue aerobic exercise and maintain a healthy weight. Assessment & Plan (05/03/2021 11:10 AM FORMS ANALYSIS MANAGER): Continue to increase water intake. Limit use [...] (06/12/2018): Added automatically from request for surgery [id number] Encounter for weight management 06/05/2018 07/22/2024 Dyslipidemia [...] needed Assessment & Plan (04/10/2018 4:07 PM FORMS ANALYSIS MANAGER): The patient has done very well overall [...] x-rays. Assessment & Plan (02/18/2018 11:58 AM FORMS ANALYSIS MANAGER): Treatment options were discussed. The patient would [...] on calories. Most people should eat between 4978-7187 calories to lose weight. Decrease your carbohydrate [...] on calories. Most people should eat between 9192-1426 calories to lose weight. Decrease your carbohydrate [...] 07/22/2024 Assessment & Plan (04/15/2017 12:41 PM FORMS ANALYSIS MANAGER): Will do ambulatory PT as she is [...] Type Department Care Team Description 08/12/2024 Telephone [facility] Primary Care at [address] [phone] Tracy Hernández NP Symptom Based Call; Medical Question/Miscellaneous 08/09/2024 Orders Only [facility] Primary Care at [address] [phone] Tracy Hernández, HOTEL DIRECTOR 08/02/2024 Nurse Triage [facility] Primary Care at [address] [phone] Tracy Hernández, HOTEL DIRECTOR 07/23/2024 Results Follow-Up [facility] Primary Care at [address] [phone] Tracy Hernández HOTEL DIRECTOR Comprehensive metabolic panel, Thyroid Function [place], Hemoglobin A1c, Additional followed-up results: 8 07/22/2024 10:15 AM CDT Lab [facility] Outpatient Lab at [address] [phone] 07/22/2024 10:12 AM CDT - 07/22/2024 11:59 PM CDT Hospital Encounter [address] [address] Hypertensive renal disease; Acquired hypothyroidism; Elevated glucose; Hypercholesterolemia Discharge Disposition: Discharge to home or self care 07/22/2024 9:30 AM CDT Office Visit [facility] Primary Care at [address] [phone] Tracy Hernández NP Acquired hypothyroidism (Primary Dx); Hypertensive renal disease; Hypercholesterolemia; Elevated glucose; Gastroesophageal reflux disease without esophagitis; Stage 3a chronic kidney disease (HCC); Generalized anxiety disorder with panic attacks; Major depression single episode, in partial remission; Primary insomnia 07/22/2024 Telephone [facility] [address] [facility] [address] [place] [phone] Shanna Oakes NP Medical Question/Miscellaneous 07/05/[address] [place] [phone] Shanna Oakes NP Referral Request from [...] SURGERY 03/03/1992 - 03/02/1993 CATARACT EXTRACTION 2003, 2005 HYSTERECTOMY OVARIAN CYSTECTOMY 1981, 2002 ERCP 03/03/2002 [...] disease) stage 3, GFR 30-59 ml/min ([facility]) Ocular migraine 03/13/2015 Cataract removed [...] Miguel age 62 Heart disease Mother Sowmya Fraile y Rivera Hypertension Mother Sowmya Fraile y Rivera Alzheimer's disease Other Paternal aunt/uncle with Alzheimer's Cancer Paternal Grandfather Costa Rivera Kidney disease Paternal Grandmother Stephany Rivera Alzheimer's disease Son 1 living a ge 61 No Known Problems Son 2 living age 57 Alzheimer's disease Son 3 ana webber jr. Relation Name Status Comments Father Baljit Oral Rivera Maternal Grandfather Raúl Saba Alive Maternal Grandmother Daisha Saba Alive Mother Sowmya Rivera Other Paternal Grandfather Costa Rivera Alive Paternal Grandmother Stephany Rivera Alive Son 1 Alive Son 2 Alive Son 3 ana webber jr. Alive Social History Tobacco Use [...] on file Legal Sex Female 11:38 PM FORMS ANALYSIS MANAGER Gender Identity Female 08/02/2019 9:59 AM [...] Scan 12/28/2021 12/29/2019, 04/01/2014, 04/01/2014 Covid-19 Vaccine (2023-2 5 season) 2024 02/16/2024, [...] history exists Medical Devices Implanted Type Area Nutritional Health Coach Device Identifier Shelf Expiration Date Model / Serial / Lot [employer] 6191-1-010 Simplex P Radiopaque Full Dose Cement Bone Sterile - [id number] Implanted:Qty: 1 on 07/15/2018 by Irving Mccauley MD at [facility] Bone Cement Left: Knee [employer] 07/31/2020 6191-1-010 / / [id number] [employer] 6191-1-010 Simplex P Radiopaque Full Dose Cement Bone Sterile - [id number] Implanted:Qty: 1 on 07/15/2018 by Irving Mccauley MD at [facility] Bone Cement Left: Knee [employer] 07/31/2020 6191-1-010 / / [id number] Baseplate Shoulder 15mm Length - [id number] Implanted:Qty: 1 on 12/10/2017 by Tayo Murray DO at [facility] Right: Shoulder [employer] Rhea 09/30/2022 GBP-0960-0 30-15 / / [id number] Screw 5.5mm 20mm Length Shoulder - [id number] Implanted:Qty: 1 on 12/10/2017 by Tayo Murray DO at [facility] Right: Shoulder [employer] Rhea 07/29/2022 SCW-0960-0 55-20 / / [id number] Screw And Cap 4.5mm 15mm Shoulder - [id number] Implanted:Qty: 2 on 12/10/2017 by Tayo Murray DO at [facility] Right: Shoulder [employer] Rhea 08/28/2020 SSC-0960-0 45-15 / / [id number] Screw And Cap 4.5mm 20mm Shoulder - [id number] Implanted:Qty: 1 on 12/10/2017 by Tayo Murray DO at [facility] Right: Shoulder [employer] Rhea 06/01/2022 SSC-0960-0 45-20 / / [id number] Screw And Cap 4.5mm 25mm Shoulder - [id number] Implanted:Qty: 1 on 12/10/2017 by Tayo Murray DO at [facility] Right: Shoulder [employer] Rhea 05/30/2022 SSC-0960-0 45-25 / / [id number] Glenosphere Shoulder 5mm Eccentric - [id number] Implanted:Qty: 1 on 12/10/2017 by Tayo Murray DO at [facility] Right: Shoulder [employer] Rhea 11/30/2021 GLS-0960-0 5E / / [id number] [employer] Rhea [id number] 1 Titan 16.5mm 12.1mm 90.4mm Press Fit 12 Spline Modular - [id number] Implanted:Qty: 1 on 12/10/2017 by Tayo Murray DO at [facility] Right: Shoulder [employer] Rhea 09/30/2021 STEM-0920- 025-11 / / [id number] Body Shoulder Small Reverse [id number] - [id number] Implanted:Qty: 1 on 12/10/2017 by Tayo Murray DO at [facility] Right: Shoulder [employer] Rhea 04/02/2022 BBS-0960-2 1SML / / [id number] Liner +0mm 9.6mm Standard 20mm 2.7mm 38.7mm Shoulder Humeral - [id number] - [id number] Implanted:Qty: 1 on 12/10/2017 by Tayo Murray DO at [facility] Right: Shoulder [employer] Rhea 04/30/2021 LNR-0960-0 0S / LNR-0960-0 0S / [id number] [employer]Rich[employer]/O rtho [id number] Shannan Ii 75ftb0ed Knee Oval Component Patellar Uhmwpe - [id number] Implanted:Qty: 1 on 07/15/2018 by Irving Mccauley MD at [facility] Left: Knee [employer]/ Ortho [id number] 04/25/2028 [id number] / / [id number] [employer]/O rtho [id number] Journey Knee Left 3 Baseplate Tibial - [id number] Implanted:Qty: 1 on 07/15/2018 by Irving Mccauley MD at [facility] Left: Knee [employer]/ Ortho [id number] 09/23/2027 [id number] / / [id number] [employer]Rich[employer]/O rtho [id number] Journey Ii Cruciate Retain Knee Left 4 Component Femoral Cocr - [id number] Implanted:Qty: 1 on 07/15/2018 by Irving Mccauley MD at [facility] Left: Knee [employer]/ Ortho [id number] 12/06/2027 [id number] / / [id number] [employer]Rich[employer]/O rtho [id number] Journey Ii Left 3-4 Deep [facility] Insert Articular Xlpe - [id number] Implanted:Qty: 1 on 07/15/2018 by Irving Mccauley MD at [facility] Left: Knee [employer]/ Ortho [id number] 03/09/2026 [id number] / / [id number] Explanted Type Area Nutritional Health Coach Device Identifier Shelf Expiration Date Model / Serial / Lot [employer] Rhea [id number] 2mm 150mm Elbow Shoulder Guide Pin Orthopedic - [id number] Explanted:Qty: 2 on 12/10/2017 at [facility] Right: Shoulder [employer] [id number] / / Procedures Procedure Name Priority [...] LAB BLOOD ORDERABLES Final Re sult AAMIR [id number] [place] [address] * (ABNORMAL) Differential, auto (07/22/2024 10:12 AM CDT) Neutrophil abs 4.47 1.50 - 6.50 K/cumm Imm gran abs 0.03 0.00 - 0.10 K/cumm [facility] Lymphocyte abs 2.26 0.80 - 3.30 K/cumm [facility] Monocyte abs 0.86(H) 0.20 - 0.80 K/cumm [facility] Eosinophil abs 0.16 0.00 - 0.50 K/cumm [facility] Basophil abs 0.05 0.00 - 0.10 K/cumm [facility] Neutrophil pct 57.1 % AAMIR Comment: Interpretive Data Percent cell [...] revised on 2017. Monocyte pct 11.0 % [facility] Comment: Interpretive Data Percent cell count reference ranges are not reported, since discordance with absolute values may lead to misinterpretation of CBC data. Current Interpretive Data was last revised on 2017. Eosinophil pct 2.0 % [facility] Comment: Interpretive Data Percent cell count reference ranges are not reported, since discordance with absolute values may lead to misinterpretation of CBC data. Current Interpretive Data was last revised on 2017. Basophil pct 0.6 % [facility] Comment: Interpretive Data Percent cell count reference ranges are not reported, since discordance with absolute values may lead to misinterpretation of CBC data. Current Interpretive Data was last revised on 2017. Blood 07/22/2024 10:1 2 AM CDT 07/22/2024 9:19 PM CDT Tracy Hernández NP LAB BLOOD ORDERABLES Final Re sult Performing Organization Address [facility] de Phone Number AAMIR [id number] [place] [address] * (ABNORMAL) Thyroid Function [place] (07/22/2024 10:12 AM CDT) Pathologist [facility] TSH 20.00(H) 0.30 - 4.20 mcIUnit/mL Blood 07/22/2024 10:1 2 AM CDT 07/22/2024 9:19 PM CDT Tracy Hernández NP LAB BLOOD ORDERABLES Final Re sult Performing Organization Address [facility] de Phone Number AAMIR [phone] [place] [address] * (ABNORMAL) Urinalysis reflex to microscopic and culture Urine, clean voided (07/22/2024 10:12 AM CDT) Color, ur Yellow Yellow Clarity, ur Turbid(A) Clear [facility] Specific gravity, ur 1.013 1.003 - [...] tendency for uric acid stone formation. Source: [facility] Current Interpretive Data was last revised [...] Reflex to microscopic UA will be performed. [facility] Urine, clean voided 07/22/2024 10:12 AM CDT 07/22/2024 9:19 PM CDT Tracy Hernández NP LAB MICROBIOLOGY - GENERAL OR DERABLES Final Result [facility] [id number] [place] [address] * (ABNORMAL) CBC with auto [...] MCHC 31.2(L) 32.3 - 35.7 g/dL [facility] RDW CV 13.8 11.1 - 14.9 % [facility] CH RDW SD 54.0(H) 35.7 - 48.1 fL [facility] NRBC abs 0.00 0.00 - 0.01 K/cumm [facility] CH Blood 07/22/2024 10:1 2 AM CDT 07/22/2024 9:19 PM CDT Tracy Hernández NP LAB BLOOD ORDERABLES Final Re sult Performing Organization Address [facility] Co de Phone Number AAMIR ALAS [address] [place] [address] * (ABNORMAL) Urinalysis, microscopic only (07/22/2024 10:12 AM CDT) WBC, ur >50(A) 0 - 5 /HPF RBC, ur 21-50(A) 0 - 2 /HPF [facility] Bacteria, ur 4+(A) [facility] Amorphous crystals, ur 1+(A) [facility] CH Culture Reflex Comment Reflex to urine culture will be performed. [facility]IR Urine, clean voided 07/22/2024 10:12 AM CDT 07/22/2024 9:19 PM CDT Tracy Hernández HOTEL DIRECTOR LAB URINE ORDERABLES Final Re sult Performing Organization Address [facility] de Phone Number AAMIR ALAS [address] [place] [address] * (ABNORMAL) Urine culture Urine, clean voided (07/22/2024 10:12 AM CDT) Report Final Report: Greater than or equal to 100,000 colonies/mL of Escherichia coli Plus growth of clinically insignificant bacterial lashonda. (.) Comment:Testing performed by : [facility], [address] [facility], [place]., [address] Organism [facility]ERICHIA COL[facility] Organism PLUS GROWTH OF CLINICALLY INSIGNIFICANT LASHONDA. [facility] Urine, clean voided 07/22/2024 10:12 AM CDT 07/23/2024 2:19 AM CDT Narrative AAMIR - 07/25/2024 12:17 PM CDT Urine culture reflexed based upon urinalysis results. Testing performed by [facility] Microbiology Laboratory ([phone]) Organism Antibiotic Method Susceptibility Escherichia coli Ampicillin [...] OR DERABLES Final Result Performing Organization Address City/[facility]/ZIP Co de Phone Number AAMIR [address] [place] [address] * T4, free (07/22/2024 10:12 AM CDT) Free T4 1.09 0.90 - 1.70 ng/dL Blood 07/22/2024 10:1 2 AM CDT 07/22/2024 9:30 PM CDT Tracy Hernández NP LAB BLOOD ORDERABLES Final Re sult Performing Organization Address [facility] Co de Phone Number AAMIR [phone] [place] [address] * (ABNORMAL) Hemoglobin A1c (07/22/2024 10:12 AM CDT) Hgb A1C 5.9(H) 4.0 - 5.6 % Estimated Average Glucose 123 mg/dL AAMIR ALAS Comment: The ADA recommends reporting an estimated Average Glucose (eAG) with all Hemoglobin A1c results using the equation derived from a study of 507 normal and diabetic adults. Minority populations were underrepresented and children were not included. (Diabetes Care 31:6886-4069, 2008). The eAG is not equivalent to a fasting glucose. Blood 07/22/2024 10:1 2 AM CDT 07/22/2024 9:19 PM CDT Tracy Hernández NP LAB BLOOD ORDERABLES Final Re sult AAMIR [address] [place] [address] * (ABNORMAL) Lipid panel (07/22/2024 10:12 AM [...] Re sult Performing Organization Address [facility]/ZIP Co de Phone Number AAMIR ALAS [address] [place] [address] * Comprehensive metabolic panel (07/22/2024 10:12 AM [...] ORDERABLES Final Re sult Performing Organization Address City/[facility]/ZIP Co de Phone Number AAMIR ALAS [address] [place] [address] * Dexa Axial Skeleton Bone Density 1 [...] Dual x-ray absorptiometry (DEXA) was performed using HoloeTobb system. GENERAL GUIDELINES: According to WHO guidelines, [...] Dual x-ray absorptiometry (DEXA) was performed using Nala system. GENERAL GUIDELINES: According to WHO guidelines, [...] to Health Maintenance Insurance MEDICARE COMMERCIAL GENERIC [facility] MEDICARE COMMERCIAL GENERIC MEDICARE COMMERCIAL GENERIC Advance Directives For more information, please contact: [phone] Documents on File Type Date Recorded Patient [place] Expl anation ADVANCE DIRECTIVE 08/20/2019 2:35 PM Power of Principal Gifts Officer-Medical ADVANCE DIRECTIVE 07/15/2018 11:14 AM ADVANCE DIRECTIVE [...] 3:25 PM 12/13/2017 4:26 PM Care Teams Taxation Economist Relationship Specialty Start Date End Date Tracy Hernández NP [address] JIMENEZ [address] [address] PCP - General Family Medicine 07/22/24
[2024-08-16 11:30] LABS: Anion Gap 10 mmol/L (4-12); Sodium 137 mmol/L (137-145)
[2024-08-16 11:42] LABS: Erythrocyte Sedimentation Rate 22 mm/hr (0-20)
== END 2024-08-16 10:06 | disposition home or self-care (01) ==
LOC: ANHLAB 10:09
PROVIDERS: PCP Nurse Practitioner Family; Visit Provider Nurse Practitioner Family
DX: R93.89 Abnormal findings on diagnostic imaging of other specified body structures (principal); K59.00 Constipation, unspecified; R19.4 Change in bowel habit
CPT/HCPCS: 36415; 80053; 85027; 85652; 86140

== ENCOUNTER 2024-08-19 13:52 | Outpatient (CLI) | payer MEDICARE, MEDICAID, SELFPAY ==
[2024-08-26 23:52] LABS: Calprotectin, Stool. 650 mcg/g
== END 2024-08-19 13:53 | disposition home or self-care (01) ==
LOC: ANHLAB 13:53
PROVIDERS: PCP Nurse Practitioner Family; Visit Provider Nurse Practitioner Family
DX: R93.89 Abnormal findings on diagnostic imaging of other specified body structures (principal)
CPT/HCPCS: 83993; 87045; 87177; 87209; 87269; 87427; 87449

== ENCOUNTER 2024-08-23 09:34 | Emergency (ER) | payer MEDICARE, MEDICAID, SELFPAY ==
[2024-08-23 09:55] VITALS: BP 132/80; PULSE 101; RESP 20; TEMP 36.2; O2SAT 97
--- NOTE | 2024-08-23 12:47 | ED.FEMALEGU ---
HPI - Female Genitourinary General Chief complaint: Urogenital-Female Stated complaint: uti, urinary retention Time Seen by Provider: 08/23/24 12:01 History of Present Illness HPI Narrative: Pt says she has been battling a UTI for a month. Pt recently completed course of augmentin but says the symptoms have remained. Pt thinks she has felt warm at night but temp is 98. Pt denies chills or vomiting. Culture from 08/03 shows no growth. Pt has dysuria and frequency and some episodes of incontinence. Related Data Home Medications ?Medication ?Instructions ?Recorded ?Confirmed ?Last Taken ?Type amlodipine 5 mg tablet 5 mg PO DAILY 01/06/19 07/28/24 01/12/19 05:00 History 5 MG atorvastatin 20 mg tablet 20 mg PO DAILY 01/06/19 07/28/24 Unknown History biotin 1,000 mcg chewable tablet 1,000 mcg PO DAILY 01/06/19 07/28/24 Unknown History clonazepam 0.5 mg tablet 0.5 mg PO BID 01/06/19 07/28/24 01/12/19 05:00 History 0.5MG duloxetine 60 mg capsule,delayed 60 mg PO BID 01/06/19 07/28/24 Unknown History release hydrochlorothiazide 12.5 mg capsule 12.5 mg PO DAILY 01/06/19 07/28/24 Unknown History potassium chloride 10 mEq 10 meq PO DAILY 01/06/19 07/28/24 Unknown History tablet,extended release levothyroxine 50 mcg tablet 100 mcg PO DAILY 07/28/24 07/28/24 Unknown History (Synthroid) Allergies Allergy/AdvReac Type Severity Reaction Status Date / Time ciprofloxacin Allergy Intermediate Other Verified 08/23/24 12:41 valsartan Allergy Unknown Other Verified 08/23/24 12:41 nitrofurantoin AdvReac Mild Nausea,Vomiting, Verified 08/23/24 12:41 Diarrhea sulfamethoxazole AdvReac Unknown UPSET Verified 08/23/24 12:41 STOMACH trimethoprim AdvReac Unknown UPSET Verified 08/23/24 12:41 STOMACH Review of Systems Review of Systems: All systems reviewed & are unremarkable except as noted in HPI and below PMFSH Past Medical History Medical History (Updated 08/23/24 @ 15:47 by Antony Castanon III, DO) Abnormal CT scan Abdominal pain Bloating Constipation Degenerative disc disease Hypothyroid Hyperlipidemia Migraine Hypertension Spinal stenosis Surgical History Surgical History History of hysterectomy Social History Social History Smoking status: Never smoker Gender identity (if verbalized by the patient): Female Exam Const: General: healthy appearing and no acute distress Nutritional Appearance: well nourished Orientation/consciousness: patient oriented x3 Limitations: no limitations Resp: Effort & Inspection: normal respiratory effort Auscultation: clear to auscultation bilaterally Cardio: Rate: regular rate Rhythm: regular rhythm GI: GI Palp: Yes Soft to palpation and No Tenderness to palpation present (GI) Auscultation: normal bowel sounds : General: Yes bladder normal to palpation Back/Spine/Pelvis: Back: no CVA tenderness Skin: General skin exam: normal color Rashes: no rashes Neuro: General: patient oriented x3, moves all extremities and no focal motor deficits Extrem: General: normal to inspection and no clubbing, cyanosis or edema Psych: Appearance: grossly normal Mental Status: mental status grossly normal Affect: normal affect Attitude: cooperative Course Vital Signs Vital signs: Vital Signs Temperature 97.2 F L 08/23/24 09:55 Pulse Rate 101 H 08/23/24 09:55 Respiratory Rate 20 08/23/24 09:55 Blood Pressure 132/80 08/23/24 09:55 Pulse Oximetry 97 08/23/24 09:55 Temperature 98.4 F 08/23/24 16:02 Pulse Rate 91 08/23/24 16:02 Respiratory Rate 20 08/23/24 16:02 Blood Pressure 120/77 08/23/24 16:02 Pulse Oximetry 97 08/23/24 16:02 MDM - Female Genitourinary MDM Narrative Medical decision making narrative: Pt says she has been fighting UTI for a month. Pt still has dysuria and frequency. Old records reviewed that pt got shot of rocephin last time here and sent home on augmentin, urine cx no growth. Pt allergic to cipro but it was really nausea. her CT which was ordered outpatient shows some inflammation or infection of colon. pt thinks she is dehydrated and is requesting IV fluids. will give liter of fluids and will give levaquin IV and zofran for nausea. If tolerated will send home on levaquin and clinda. med stolerated well home on clinda and levaquin and pyridium Lab Data Labs: Lab Results 08/23/24 Range/Units 12:40 Urine Color Dark yellow (Yellow) Urine Appearance Turbid H (Clear) Urine pH 6.0 (5.0-9.0) Ur Specific [place] 1.020 (1.001-1.035) Urine Protein 3+ H (Negative) mg/dL Urine Glucose (UA) Negative (Negative) mg/dL Urine Ketones Trace H (Negative) mg/dL Ur Blood (Man) 2+ H (Negative) Urine Nitrate Positive H (Negative) Urine Bilirubin Negative (Negative) Urine Urobilinogen 1.0 (<2.0) mg/dL Leukocyte Esterase Rfl 3+ H (Negative) MICHELLE/UL Urine RBC 51-100 H (0-2) /hpf Urine WBC >100 H (0-3) /hpf Ur Squamous Epith Cells None seen (Few) /hpf Urine Bacteria 4+ /hpf Urine Casts 3-5 Discharge Plan Discharge Clinical Impression: Urinary tract infection, Colitis Patient Disposition: Home Condition: Improved Instructions: Antibiotic Form, Urinary Tract Infection in Women (ED) Patient Language: Grenadian Prescriptions: New levofloxacin 500 mg tablet 500 mg PO DAILY Qty: 14 0RF phenazopyridine [Pyridium] 100 mg tablet 100 mg PO TID Qty: 6 0RF clindamycin HCl [Cleocin HCl] 150 mg capsule 150 mg PO Q6H Qty: 40 0RF No Action linaclotide 72 mcg capsule 72 mcg capsule 0RF atorvastatin 20 mg Tablet 20 mg PO DAILY clonazepam 0.5 mg Tablet 0.5 mg PO BID amlodipine 5 mg Tablet 5 mg PO DAILY potassium chloride 10 mEq Tablet Extended Release 10 meq PO DAILY hydrochlorothiazide 12.5 mg Capsule 12.5 mg PO DAILY duloxetine 60 mg Capsule,Delayed Release(Dr/Ec) 60 mg PO BID biotin 1,000 mcg Tablet,Chewable 1,000 mcg PO DAILY levothyroxine [Synthroid] 50 mcg tablet 100 mcg PO DAILY loratadine 10 mg tablet 10 mg PO DAILY Qty: 20 0RF hydroxyzine HCl 25 mg tablet 25 mg PO BID PRN (Reason: itching) Qty: 14 0RF tramadol 50 mg tablet 50 mg PO Q8H PRN (Reason: pain) Qty: 14 0RF amoxicillin-pot clavulanate 875-125 mg tablet 1 tablet PO Q12H Qty: 14 0RF Follow-up/Referrals: Betty,Tracy Jimenez, LAUNDRY EQUIPMENT OPERATOR [Primary Care Provider] -
[2024-08-23 12:58] LABS: Add Urine Microscopic? YES; Appearance Urine Turbid (Clear); Bacteria Urine 4+ /hpf; Bilirubin Urine Negative (Negative); Blood Urine 2+ (Negative); Color Urine Dark Yellow (Yellow); Glucose Urine UA Negative (Negative); Ketones Urine Trace mg/dL (Negative); Leukocyte Esterase Ur 3+ LEU/UL (Negative); Nitrate Urine Positive (Negative); Protein Urine 3+ mg/dL (Negative); RBC Urine 51-100 /hpf (0-2); Squamous Epithelial Cell Urine None Seen /hpf (Few); WBC Urine >100 /hpf (0-3)
[2024-08-23] MEDS: SODIUM CHLORIDE 0.9% IV 1,000 ML 999 ML IV CONT (13:49)
[2024-08-23] MEDS: ONDANSETRON INJ 4 MG/2 ML VIAL IV PUSH (13:50)
[2024-08-23] MEDS: levoFLOXacin 500 MG/D5W 100 ML 500 MG/100 ML BAG 100 MG IVPB (13:53)
[2024-08-23 16:02] VITALS: BP 120/77; PULSE 91; RESP 20; TEMP 36.9; O2SAT 97
== END 2024-08-23 16:04 | disposition home or self-care (01) ==
PROVIDERS: Emergency Provider Emergency Medicine; PCP Nurse Practitioner Family
DX: N39.0 Urinary tract infection, site not specified (principal); K52.9 Noninfective gastroenteritis and colitis, unspecified
CPT/HCPCS: 81001; 87086; 87186; 96365; 96375; 99284; J1956; J2003; J2405; J7030

== ENCOUNTER 2024-09-28 13:13 | Emergency (ER) | payer MEDICARE, MEDICAID, SELFPAY ==
[2024-09-28 13:16] VITALS: BP 116/78; PULSE 67; RESP 20; TEMP 36.4; O2SAT 99
--- OUTSIDE RECORDS SUMMARY | 2024-09-28 13:21 | XMS_ITS | Encounter Summary ---
Author Organization 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
--- OUTSIDE RECORDS SUMMARY | 2024-09-28 13:21 | XMS_ITS | Encounter Summary ---
Author Organization [facility] Healthcare Address [address] [place] [address] Care Team Providers Care Recording Artist Name Role Phone Tracy Hernández NP Primary Care Provider [phone] Reason for Visit * Reason Onset Date Comments Med Refill 08/30/2024 Encounter Details Date Type Department Care Team (Late st Contact Info) Description 08/30/2024 Telephone [facility] Primary Care at [address] [address] Tracy Hernández NP [address] [place] [address] [address] [place] [address] Med Refill Social History Tobacco Use Types Packs/Day Years [...] on file 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 Verbalized understanding. * Telephone Encounter - Tracy Hernández NP - 08/30/2024 2:33 PM CDT I renewed the tramadol 50mg twice daily which is as it has always been ordered. I will not increaseit. * Telephone Encounter - Tri Faust - 08/30/2024 1:52 PM CDT Medication Question/Clarification Medication Name(s)/Dose: traMADoL (ULTRAM) 50 mg tablet What is the question or clarification needed? Patient has been out of medication for 5 days. Sending HP. Patient is needing Rx sent as soon as possible. If needed, Pharmacy(s) medication(s) should be sent to: [address] [address] Additional Comments: Patient says she is needing an increased dosage of the medication. She is needing Rx sent as soon as possible. Patient needs PCP to take over Rx. Does message need to be routed? Yes-Action Needed documented in this encounter Plan of Treatment Not on file documented as of this encounter Visit Diagnoses Not on filedocumented in this encounter Care Teams Recording Artist Relationship Specialty Start Date End Date Tracy Hernández NP [address] [facility] [address] [place] [address] PCP - General Family Medicine 07/22/24 documented as of this encounter
--- OUTSIDE RECORDS SUMMARY | 2024-09-28 13:21 | XMS_ITS | Encounter Summary ---
Author Organization [facility] Address [address] [place] [address] Phone Care Team Providers Care Software Development Engineer Name Role Phone Matt Painting MD Primary Care Provider [phone] Tyesha Abarca DPT Unavailable Unavailable Yesi Cook DPT Unavailable Unavailable Renetta Pearl MA Unavailable [phone] Vernon Hernandez RN Unavailable [phone] Vernon Hernandez RN Unavailable [phone] Renetta Pearl MA Unavailable [phone] Shanna Oakes HEMATOLOGIST Primary Care Provider [phone] Tracy Hernández HEMATOLOGIST Primary Care Provider [phone] Encounter Details Date Type Department Care Team (Late st Contact Info) Description 06/12/2017 Orders Only [facility] ProviderChente MD [facility] [place] [address] Social History Tobacco Use Types Packs/Day Years Used Date Smoking Tobacco: Never Smokeless Tobacco: Never Alcohol Use Standard Drinks/Week Comments No 0 (1 standard drink = 0.6 oz pur e alcohol) Comments Unknown Sex and Gender Information Value Date Recorded Sex Assigned at Not on file 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 [place] [address] PCP - General Internal Medicine 12/09/19 07/21/24 Tracy Hernández NP [address] [facility] [address] [place] [address] PCP - General Family Medicine 07/22/24 Tyesha Abarca DPT Physical Therapist Physical Therapy 04/30/17 02/08/18 Yesi Cook DPT Physical Therapist Physical Therapy 07/30/17 03/06/20 Renetta Pearl MA [address] [place] [address] ACO Care Drafter Directional Survey 12/15/17 12/31/17 Vernon Hernandez, OPHELIA [address] [facility] [address] [place] [address] Med Dir 01/01/18 02/11/18 Vernon Hernandez RN [address] [facility] [address] [place] [address] [facility] Outpatient Tea Plantation Worker 07/20/18 10/15/18 Renetta Pearl MA [address] [place], [place] [id number] ACO Care Drafter Directional Survey 07/21/18 07/21/18 documented as of this encounter
--- OUTSIDE RECORDS SUMMARY | 2024-09-28 13:21 | XMS_ITS | Encounter Summary ---
Author Organization [facility] Healthcare Address [address] [place] [address] Care Team Providers Care Chef Assistant Name Role Phone Matt Painting MD Primary Care Provider [phone] Yesi Cook DPT Unavailable Unavailable Vernon Hernandez RN Unavailable Renetta Pearl MA Unavailable [phone] Shanna Oakes TIP STITCHER Primary Care Provider [phone] Tracy Hernández TIP STITCHER Primary Care Provider Encounter Details Date Type Department Care Team (Late st Contact Info) Description 06/24/2018 Documentation [facility] [address] [place] [id number] Opal Marsh MSW Social History Tobacco Use Types Packs/Day Years Used Date Smoking Tobacco: Never Smokeless Tobacco: Never Alcohol Use Standard Drinks/Week Comments No 0 (1 standard drink = 0.6 oz pur e alcohol) Comments No Sex and Gender Information Value Date Recorded Sex Assigned at Not on file 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 Secondary choice is [facility] [place]. Pt informed that the referral will be sent upon admission for placement if PT recs SNF. SW will followafter surgery. documented in this encounter Plan of Treatment Not on file documented as of this encounter Visit Diagnoses Not on filedocumented in this encounter Care Teams Chef Assistant Relationship Specialty Start Date End Date Matt Painting MD [address] [facility] [address], [place] [address] PCP - General 05/31/16 12/08/19 Shanna Oakes NP [address] [place] [address] [address] [place] [address] PCP - General Internal Medicine 12/09/19 07/21/24 Tracy Hernández NP [address] [facility] [address] [place] [address] PCP - General Family Medicine 07/22/24 Yesi Cook DPT Physical Therapist Physical Therapy 07/30/17 03/06/20 Vernon Hernandez RN [address] [place], [place] [address]R[place] [address] [address] [facility] Outpatient Tack Puller Machine 07/20/18 10/15/18 Renetta Pearl, SONIA [address] [place] [address] ACO Care Ventilation Mechanic 07/21/18 07/21/18 documented as of this encounter
--- OUTSIDE RECORDS SUMMARY | 2024-09-28 13:21 | XMS_ITS | Clinical Summary ---
Author Organization [facility] Address [address] [place] [address] Care Team Providers Care Debridging Machine Operator Name Role Phone Tracy Hernández NP Primary Care Provider [phone] Allergies Active Allergy Reactions Criticality Noted Date Comments Nitrofurantoin Nausea only Low Nitrofurantoin Monohyd/M-Cryst Other (See comments) Low 11/20/2016 Affects liver per pt Sulfa (Sulfonamide Antibiotics) Other (See comments) Low Reaction: GI macrobid, nitrofurantin, Nausea and tears up my Liver Sulfamethoxazole-Trimeth oprim Valsartan Angioedema High 08/08/2017 Medications aspirin 81 mg enteric coated tabletIndicati ons:Atheroscle rosis of both carotid arteries Take 1 tablet (81 mg total) by mouth daily 30 tablet 11 12/20/19 20 Active mometasone (ELOCON) 0.1 % solution 3 drops to affected ear canal daily for 1 week, then use M-W-F (every other day) 30 mL 1 02/13/20 21 Active triamcinolone (KENALOG) 0.1 % cream APPLY TOPICALLY TO AREAS OF ITCHING WITHOUT RASH TWICE DAILY FOR UP TO 4 WEEKS, THEN TAKE A 2 WEEK BREAK. DO NOT USE ON FACE 12/12/19 23 Active clobetasoL (TEMOVATE) 0.05 % external solution APPLY TO SCALP AND EARS TWICE DAILY NEEDED FOR FLAKING,SCALI NG,OR ITCHING. 12/28/19 23 Active loratadine (Allergy Relief, loratadine,) 10 mg tablet TAKE 1 TABLET BY MOUTH ONCE DAILY NEEDED FOR ALLERGIES 90 tablet 3 06/05/19 24 Active gabapentin (NEURONTIN) 300 mg capsule Take 1 capsule by mouth once daily 90 capsule 07/29/[address] (CYMBALTA) 60 mg capsule Take 2 capsules by mouth once daily 180 capsule 1 08/08/19 24 Active amLODIPine (NORVASC) 5 mg tablet Take 1 tablet by mouth once daily 90 tablet 1 08/08/19 24 Active atorvastatin (LIPITOR) 40 mg tablet Take 1 tablet by mouth once daily 90 tablet 08/29/19 24 Active omeprazole (PriLOSEC) 20 mg capsule Take 1 capsule by mouth once daily 90 capsule 08/29/19 24 Active potassium chloride ER 20 mEq CR tablet Take 1 tablet by mouth once daily 90 tablet 09/22/19 24 Active hydroCHLOROthi azide (MICROZIDE) 12.5 mg capsule Take 1 capsule by mouth once daily 90 capsule 1 10/06/19 24 Active busPIRone (BUSPAR) 5 mg tabletIndicati ons:Generalize d Anxiety Disorder Take 1 tablet (5 mg total) by mouth 2 (two) times a day 180 tablet 3 03/30/19 25 Active LORazepam (ATIVAN) 0.5 mg tablet TAKE 1 TABLET BY MOUTH TWICE DAILY NEEDED FOR ANXIETY 60 tablet 1 06/22/19 25 Active levothyroxine (SYNTHROID) 100 mcg tablet Take 1 tablet (100 mcg total) by mouth paragliding instructor before breakfast 90 tablet 07/24/19 25 Active zolpidem CR (AMBIEN CR) 6.25 mg CR tabletIndicati ons:Insomnia Take 1 tablet (6.25 mg total) by mouth nightly as needed for sleep 30 tablet 5 08/10/19 25 025 Active clindamycin (CLEOCIN) 150 mg capsule Take 1 capsule (150 mg total) by mouth 4 (four) times a day 08/24/19 25 Active metroNIDAZOLE (FLAGYL) 500 mg tablet Take 1 tablet (500 mg total) by mouth 2 (two) times a day 08/28/19 25 Active Linzess 72 mcg capsule 09/10/19 25 Active traMADoL (ULTRAM) 50 mg tablet Take 1 tablet (50 mg total) by mouth 2 (two) times a day as needed for pain 60 tablet 09/22/19 25 Active traMADoL (ULTRAM) 50 mg tablet Take 1 tablet (50 mg total) by mouth every 6 (six) hours as needed for pain 60 tablet 07/01/19 25 025 Discontinued(Re order) traMADoL (ULTRAM) 50 mg tablet Take 1 tablet (50 mg total) by mouth every 6 (six) hours as needed for pain 60 tablet 08/31/19 25 025 Discontinued ciprofloxacin (CIPRO) 500 mg tablet Take 1 tablet (500 mg total) by mouth 2 (two) times a day for 5 days 10 tablet 09/21/19 25 025 Active Problems Problem Noted Date Diagnosed Date 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 Assessment & Plan (03/30/2024 12:53 PM ENGINE SPECIALIST): Stable, continue Zolpidem Assessment & Plan (12/29/2023 1:26 PM CDT): Worse. Will switch to an ER Zolpidem. Dermatochalasis of both upper eyelids 10/15/2022 Assessment & Plan (10/16/2023 4:47 PM CDT): Pt not bothered, monitor Assessment & Plan (10/15/2022 12:55 PM CDT): Not v/s, monitor Atherosclerosis of aorta 05/09/2022 Overview (05/09/2022): 05/09/21- xray Assessment & Plan (03/30/2024 12:52 PM ENGINE SPECIALIST): Stable, continue aspirin and Atorvastatin Assessment & Plan (09/16/2023 10:46 AM CDT): Stable, continue Atorvastatin and aspirin. Assessment & Plan (01/13/2023 10:31 AM ENGINE SPECIALIST): Stable, continue aspirin and Atorvastatin Encounter for Medicare annual wellness exam 05/02 Assessment & Plan (03/30/2024 12:49 PM ENGINE SPECIALIST): Please see below for a list of your medical conditions and recommendations. Assessment & Plan (01/13/2023 10:30 AM ENGINE SPECIALIST): Please see below for a list of [...] 020 Assessment & Plan (03/30/2024 12:53 PM ENGINE SPECIALIST): Stable, continue aspirin and Atorvastatin Assessment & Plan (09/16/2023 10:47 AM CDT): Stable, continue Atorvastatin and aspirin Assessment & Plan (01/13/2023 10:32 AM ENGINE SPECIALIST): Stable, continue aspirin and Atorvastatin Assessment & Plan (01/03/2022 1:32 PM CDT): Stable, continue aspirin and Atorvastatin. Assessment & Plan (05/03/2021 11:10 AM ENGINE SPECIALIST): Stable, continue Atorvastatin and aspirin Assessment & [...] UTI Assessment & Plan (04/15/2017 12:43 PM ENGINE SPECIALIST): Having increased urinary frequency but no pain, feels similar to UTIs in the past. UA today with just trace blood, negative for leuks and nitrites Advised to keep hydrated and will send UA for culture BMI 28.0-28.9,adult 04/15/2017 Assessment & Plan (10/08/2017 11:47 AM CDT): Try to cut back on calories. Most people should eat between 6241-1148 calories to lose weight. Decrease your carbohydrate [...] help. Assessment & Plan (04/15/2017 11:14 AM ENGINE SPECIALIST): BMI Follow-up includes: nutrition counseling and exercise [...] management. Assessment & Plan (05/03/2021 11:10 AM ENGINE SPECIALIST): Stable, continue Gabapentin and Duloxetine Assessment & Plan (12/19/2019 7:35 PM CDT): Stable, continue duloxetine Assessment & Plan (06/14/2019 8:10 AM CDT): Requires chronic duloxetine and gabapentin therapy. Does see pain management at times. Assessment & Plan (04/15/2017 12:40 PM ENGINE SPECIALIST): Improved and using lidocaine patches which help. Suspect this is more from bulging disc than it is from UTI and patient agrees. Major depression single episode, in partial amanda ssion 08/28/2016 Assessment & Plan (03/30/2024 12:53 PM ENGINE SPECIALIST): Stable, continue Duloxetine Assessment & Plan (12/29/2023 1:26 PM CDT): Stable, continue Duloxetine Assessment & Plan (01/13/2023 10:33 AM ENGINE SPECIALIST): Stable, continue Duloxetine Assessment & Plan (09/10/2022 3:17 PM CDT): Improved. Continue Duloxetine Assessment & Plan (05/03/2022 2:59 PM ENGINE SPECIALIST): Stable, continue Duloxetine Assessment & Plan (01/03/2022 1:30 PM CDT): Intermittent. Continue Duloxetine. Assessment & Plan (05/03/2021 11:09 AM ENGINE SPECIALIST): Chronic and unchanged. Continue Duloxetine Assessment & [...] Duloxetine Assessment & Plan (02/16/2018 1:25 PM ENGINE SPECIALIST): Doing well with the clonazepam and duloxetine Assessment & Plan (04/15/2017 12:42 PM ENGINE SPECIALIST): Still teary in the room over the [...] disease Assessment & Plan (03/30/2024 12:49 PM ENGINE SPECIALIST): The blood pressure is adequately controlled. Ideally, [...] way. Assessment & Plan (01/13/2023 10:30 AM ENGINE SPECIALIST): The blood pressure is adequately controlled. Ideally, [...] way. Assessment & Plan (05/03/2022 2:57 PM ENGINE SPECIALIST): The blood pressure is adequately controlled. Ideally, [...] way. Assessment & Plan (05/03/2021 11:08 AM ENGINE SPECIALIST): The blood pressure is adequately controlled. Ideally, [...] 02/03/2012 Overview (06/07/2016): Hypothyroidism Assessment & Plan (09/16/2024 2:56 PM CDT): Orders: TSH; Future Assessment & Plan (03/30/2024 12:50 PM ENGINE SPECIALIST): Stable, continue levothyroxine Assessment & Plan (12/29/2023 1:24 PM CDT): Stable, continue levothyroxine Assessment & Plan (09/16/2023 10:46 AM CDT): Stable? Will recheck today. Assessment & Plan (01/13/2023 10:31 AM ENGINE SPECIALIST): Stable, continue levothyroxine. Assessment & Plan (09/10/2022 3:15 PM CDT): Stable? Will recheck today. Assessment & Plan (05/03/2022 2:57 PM ENGINE SPECIALIST): Stable? Will recheck today. Assessment & Plan (01/03/2022 1:24 PM CDT): Stable, continue levothyroxine Assessment & Plan (05/03/2021 11:08 AM ENGINE SPECIALIST): Stable? Continue levothyroxine. Assessment & Plan (11/08/2020 [...] are stable, reviewed previous lipid levels in [facility]. Continue statin therapy. Lipitor (atorvastatin) Order for lipid panel was given today to be obtained. Pt voiced understanding of lab drawn and continuation of current medication regimen. Assessment & Plan (03/30/2024 12:49 PM ENGINE SPECIALIST): Continue low fat eating- limit fried foods, [...] prescribed. Assessment & Plan (01/13/2023 10:30 AM ENGINE SPECIALIST): Continue low fat eating- limit fried foods, [...] prescribed. Assessment & Plan (05/03/2022 2:58 PM ENGINE SPECIALIST): Continue low fat eating- limit fried foods, [...] day. Assessment & Plan (05/03/2021 11:09 AM ENGINE SPECIALIST): Continue low fat eating- limit fried foods, [...] attacks Assessment & Plan (03/30/2024 1:37 PM ENGINE SPECIALIST): Not controlled, continue Lorazepam as needed Assessment & Plan (01/13/2023 10:32 AM ENGINE SPECIALIST): Stable, continue Duloxetine and Lorazepam as needed. Assessment & Plan (09/10/2022 3:18 PM CDT): Improved. Continue Duloxetine and uses Lorazepam as needed. Try not take this medication daily or mcc is at all possible as it can lead to dependence/addiction/tolerance, memory issues and may cause depression terminal clerk. Keep this medication out of the reach of other people. Do not drive or drink alcohol with this medication. Assessment & Plan (05/03/2022 3:00 PM ENGINE SPECIALIST): Chronic and unchanged. Continue Lorazepam as needed. Assessment & Plan (01/03/2022 1:31 PM CDT): Stable, continue Lorazepam as needed Assessment & Plan (11/08/2020 5:25 PM CDT): Stable, continue Clonazepam Assessment & Plan (05/22/2020 8:01 PM CDT): Stable, continue Clonazepam as needed. Do not take this medication daily or terminal clerk is at all possible as it can lead to dependence/addiction/tolerance, memory issues and may cause depression terminal clerk. Keep this medication out of the reach [...] disease) Assessment & Plan (03/30/2024 12:53 PM ENGINE SPECIALIST): Try to eat smaller more frequent meals. [...] weight. Assessment & Plan (01/13/2023 10:32 AM ENGINE SPECIALIST): Try to eat smaller more frequent meals. [...] weight. Assessment & Plan (05/03/2022 2:59 PM ENGINE SPECIALIST): Try to eat smaller more frequent meals. [...] weight. Assessment & Plan (05/03/2021 11:09 AM ENGINE SPECIALIST): Try to eat smaller more frequent meals. [...] 3, GFR 30-59 ml/min Assessment & Plan (09/16/2024 2:56 PM CDT): Orders: Basic metabolic panel; Future Assessment & Plan (07/26/2024 9:29 PM CDT): Lab Results Component Value Date GFRNAA 75 07/22/2024 GFRNAA 48 (L) 03/30/2024 GFRNAA 65 12/29/2023 Improved. Gfr rechecked with labs today. Assessment & Plan (03/30/2024 12:53 PM ENGINE SPECIALIST): Continue to increase water intake. Limit use [...] weight. Assessment & Plan (01/13/2023 10:32 AM ENGINE SPECIALIST): Continue to increase water intake. Limit use of NSAIDs including Ibuprofen, Aleve, Motrin, etc. Continue aerobic exercise and maintain a healthy weight. Assessment & Plan (09/10/2022 3:20 PM CDT): Continue to increase water intake. Limit use of NSAIDs including Ibuprofen, Aleve, Motrin, etc. Continue aerobic exercise and maintain a healthy weight. Assessment & Plan (05/03/2022 3:00 PM ENGINE SPECIALIST): Continue to increase water intake. Limit use of NSAIDs including Ibuprofen, Aleve, Motrin, etc. Continue aerobic exercise and maintain a healthy weight. Assessment & Plan (01/03/2022 1:31 PM CDT): Continue to increase water intake. Limit use of NSAIDs including Ibuprofen, Aleve, Motrin, etc. Continue aerobic exercise and maintain a healthy weight. Assessment & Plan (05/03/2021 11:10 AM ENGINE SPECIALIST): Continue to increase water intake. Limit use [...] (06/12/2018): Added automatically from request for surgery [id number] Encounter for weight management 06/05/2018 07/22/2024 Dyslipidemia [...] needed Assessment & Plan (04/10/2018 4:07 PM ENGINE SPECIALIST): The patient has done very well overall [...] x-rays. Assessment & Plan (02/18/2018 11:58 AM ENGINE SPECIALIST): Treatment options were discussed. The patient would [...] on calories. Most people should eat between 8637-3120 calories to lose weight. Decrease your carbohydrate [...] on calories. Most people should eat between 0773-1270 calories to lose weight. Decrease your carbohydrate [...] 07/22/2024 Assessment & Plan (04/15/2017 12:41 PM ENGINE SPECIALIST): Will do ambulatory PT as she is [...] Encounters Date Type Department Care Team Description 09/20/2024 Orders Only [facility] Primary Care at [address] [phone] Tracy Hernández NP 09/20/[address] [facility] [address], [address] [facility] [place] [address] Jackie Mckeon, OD Encounter for observation for other suspected diseases and conditions ruled out (Primary Dx) 09/17/2024 12:32 PM CDT - 09/17/2024 11:59 PM CDT Hospital Encounter [facility] [id number] [place] [address] Frequent UTI Discharge Disposition: Discharge to home or self care 09/17/2024 12:30 PM CDT Lab [facility] Outpatient Lab at [address] [phone] 09/17/2024 Results Follow-Up [facility] Primary Care at [address] [phone] Tracy Hernández, WOODEN FRAME BUILDER Basic metabolic panel, TSH, eGFR, Urine culture Urine, clean voided 09/16/2024 3:06 PM CDT - 09/16/2024 11:59 PM CDT Hospital Encounter [facility] [address] [place] [address] Stage 3a chronic kidney disease (HCC); Acquired hypothyroidism Discharge Disposition: Discharge to home or self care 09/16/2024 3:00 PM CDT Lab [facility] Outpatient Lab at [address] [phone] 09/16/2024 2:00 PM CDT Office Visit [facility] Primary Care at [address] [phone] Tracy Hernández NP Stage 3a chronic kidney disease (HCC) (Primary Dx); Frequent UTI; Acquired hypothyroidism 08/30/2024 Nurse Triage [facility] Primary Care at [address] [phone] Tracy Hernández NP 08/30/2024 Orders Only [facility] Primary Care at [address] [phone] Tracy Hernández NP 08/30/2024 Telephone [facility] Primary Care at [address] [phone] Tracy Hernández NP Med Refill 08/30/2024 Telephone [facility] [address], [place] [address] Shanna Oakes NP 08/27/2024 Telephone [facility] [address] [place] [address] Manuela Shah NP 08/12/2024 Telephone [facility] Primary Care at [address] [phone] Tracy Hernández NP Symptom Based Call; Medical Question/Miscellaneou s 08/09/2024 Orders Only [facility] Primary Care at [address] [phone] Tracy Hernández NP 08/02/2024 Nurse Triage [facility] Primary Care at [address] [phone] Tracy Hernández NP 07/23/2024 Results Follow-Up [facility] Primary Care at [address] [phone] Tracy Hernández NP Comprehensive metabolic panel, Thyroid Function [place], Hemoglobin A1c, Additional followed-up results: 8 07/22/2024 10:15 AM CDT Lab [facility] Outpatient Lab at [address] [phone] 07/22/2024 10:12 AM CDT - 07/22/2024 11:59 PM CDT Hospital Encounter [address] [address] Hypertensive renal disease; Acquired hypothyroidism; Elevated glucose; Hypercholesterolemia Discharge Disposition: Discharge to home or self care 07/22/2024 9:30 AM CDT Office Visit [facility] Primary Care at [address] [phone] Tracy Hernández NP Acquired hypothyroidism (Primary Dx); Hypertensive renal disease; Hypercholesterolemia; Elevated glucose; Gastroesophageal reflux disease without esophagitis; Stage 3a chronic kidney disease (HCC); Generalized anxiety disorder with panic attacks; Major depression single episode, in partial remission; Primary insomnia 07/22/[address] [address] Shanna Oakes NP Medical Question/Miscellaneou s 07/05/[address] [address] Shanna Oakes NP Referral Request [...] kidney disease) stage 3, GFR 30-59 ml/min ([facility]) Ocular migraine 03/13/2015 Cataract removed Brain concussion History of strabismus surgery 10/16/2023 History of reverse total rep lacement of right shoulder joint 02/17/2018 Family History Medical History Relation Name Comments Abdominal Aortic Aneurysm Father Baljit Ayon Rivera s/p repair AAA age 55, of ruptured AAA age 65 Depression Father Baljit Oral Rivera Heart attack Father Baljit Oral Rivera Heart disease Father Baljit Oral Rivera Hypertension Father Baljit Oral Rivera Arthritis Maternal Grandfather Raúl Saba Diabetes Maternal Grandmother Daisha Saba Heart attack Mother Sowmya Cline y Rivera age 62 Heart disease Mother Sowmya Cline [...] Alive Son 2 Alive Son 3 ana artur webber jr. Alive Social History Tobacco Use [...] on file Legal Sex Female 11:38 PM ENGINE SPECIALIST Gender Identity Female 08/02/2019 9:59 AM CDT Sexual Orientation Straight 06/03/2018 6: 51 PM CDT Obstetrics History Last Filed Vital Signs Vital Sign Reading Time Taken Comments Blood Pressure 138/86 09/16/2024 2:21 PM CDT Pulse 102 09/16/2024 2:21 PM CDT Temperature 36.3 C (97.4 F) 09/16/2024 2:21 PM CDT Respiratory Rate 18 09/16/2024 2:21 PM CDT Oxygen Saturation 95% 09/16/2024 2:21 PM CDT Inhaled Oxygen Concentration - - Weight 75.3 kg (166 lb 1.6 oz) 09/16/2024 2:21 P M CDT Height 162.6 cm (5' 4) 09/16/2024 2:21 PM CDT Body Mass Index 28.51 09/16/2024 2:21 PM CDT Plan of Treatment Health Maintenance Due Date Last Done Comments Hepatitis B Screening 02/06/1953 Zoster Vaccine (1 of 2) 02/06/1986 Osteoporosis Screening-Bone Density Scan 12/28/2021 12/29/2019, 04/01/2014, 04/01/2014 Covid-19 Vaccine (2023-2 5 season) 2024 02/16/2024, 02/16/2024, 01/20/2023, Additional history exists Influenza Vaccine (#1) 2024 , 01/13/2023, 01/03/2022, Additional history exists Well Visit 65+ 03/30/2025 03/30/2024, 01/01, 01/03/2022, Additional history exists Depression Screening 07/22/2025 07/22/2024, 03/30/2024, 01/13/2023, Additional history exists Fall Risk Assessment 07/22/2025 07/22/2024, 01/13/2023, 01/03/2022, Additional history exists DTaP/Tdap/Td Vaccine (3 - Td or Tdap) 08/22/2030 08/22/2020, 03/21/2014 Pneumococcal vaccine 65+ Completed 12/22/2014, 05/01 Medical Devices Implanted Type Area Pelota Maker Device Identifier Shelf Expiration Date Model / Serial / Lot [employer] 6191-1-010 Simplex P Radiopaque Full Dose Cement Bone Sterile - [id number] Implanted:Qty: 1 on 07/15/2018 by Irving Mccauley MD at [facility] Bone Cement Left: Knee [employer] 07/31/2020 6191-1-010 / / [id number] [employer] 6191-1-010 Simplex P Radiopaque Full Dose Cement Bone Sterile - [id number] Implanted:Qty: 1 on 07/15/2018 by Irving Mccauley MD at [facility] Bone Cement Left: Knee [employer] 07/31/2020 6191-1-010 / / [id number] Baseplate Shoulder 15mm Length - [id number] Implanted:Qty: 1 on 12/10/2017 by Tayo Murray DO at [facility] Right: Shoulder [employer]hea 09/30/2022 GBP-0960-0 30-15 / / [id number] Screw 5.5mm 20mm Length Shoulder - [id number] Implanted:Qty: 1 on 12/10/2017 by Tayo Murray DO at [facility] Right: Shoulder [employer] Rhea 07/29/2022 SCW-0960-0 55-20 / / [id number] Screw And Cap 4.5mm 15mm Shoulder - [id number] Implanted:Qty: 2 on 12/10/2017 by Tayo Murray DO at [facility] Right: Shoulder [employer] Rhea 08/28/2020 SSC-0960-0 45-15 / / [id number] Screw And Cap 4.5mm 20mm Shoulder - [id number] Implanted:Qty: 1 on 12/10/2017 by Tayo Murray DO at [facility] Right: Shoulder [employer] R[employer] 06/01/2022 SSC-0960-0 45-20 / / [id number] Screw And Cap 4.5mm 25mm Shoulder - [id number] Implanted:Qty: 1 on 12/10/2017 by Tayo Murray DO at [facility] Right: Shoulder [employer] R[employer] 05/30/2022 SSC-0960-0 45-25 / / [id number] Glenosphere Shoulder 5mm Eccentric - [id number] Implanted:Qty: 1 on 12/10/2017 by Tayo Murray DO at [facility] Right: Shoulder [employer] 11/30/2021 GLS-0960-0 5E / / [id number] [employer] [id number] 1 Titan 16.5mm 12.1mm 90.4mm Press Fit 12 Spline Modular - [id number] Implanted:Qty: 1 on 12/10/2017 by Tayo Murray DO at [facility] Right: Shoulder [employer] R[employer] 09/30/2021 STEM-0920- 025-11 / / [id number] Body Shoulder Small Reverse [id number] - [id number] Implanted:Qty: 1 on 12/10/2017 by Tayo Murray DO at [facility] Right: Shoulder [employer] 04/02/2022 BBS-0960-2 1SML / / [id number] Liner +0mm 9.6mm Standard 20mm 2.7mm 38.7mm Shoulder Humeral - [id number] - [id number] Implanted:Qty: 1 on 12/10/2017 by Tayo Murray DO at [facility] Right: Shoulder [employer] 04/30/2021 LNR-0960-0 0S / LNR-0960-0 0S / [id number] [employer]/O rtho [id number] Shannan Ii [id number] Knee Oval Component Patellar Uhmwpe - [id number] Implanted:Qty: 1 on 07/15/2018 by Irving Mccauley MD at [facility] Left: Knee [employer]/ Ortho [id number] 04/25/2028 [id number] / / [id number] [employer]/O rtho [id number] Journey Knee Left 3 Baseplate Tibial - [id number] Implanted:Qty: 1 on 07/15/2018 by Irving Mccauley MD at [facility] Left: Knee [employer]/ Ortho [id number] 09/23/2027 [id number] / / [id number] [employer]/O rtho [id number] Journey Ii Cruciate Retain Knee Left 4 Component Femoral Cocr - [id number] Implanted:Qty: 1 on 07/15/2018 by Irving Mccauley MD at [facility] Left: Knee [employer]/ Ortho [id number] 12/06/2027 [id number] / / [id number] [employer]/O rtho [id number] Journey Ii Left 3-4 Deep [employer] Insert Articular Xlpe - [id number] Implanted:Qty: 1 on 07/15/2018 by Irving Mccauley MD at [facility] Left: Knee [employer]/ Ortho [id number] 03/09/2026 [id number] / / [id number] Explanted Type Area Pelota Maker Device Identifier Shelf Expiration Date Model / Serial / Lot [employer] 99Presents [id number] 2mm 150mm Elbow Shoulder Guide Pin Orthopedic - [id number] Explanted:Qty: 2 on 12/10/2017 at [facility] Right: Shoulder [employer]resents [id number] / / Procedures Procedure Name Priority Date/Time Associated Diagnosis Comments URINE CULTURE Routine 09/17/2024 12:32 PM CDT Frequent UTI EGFR Routine 09/16/2024 3:06 PM CDT Stage 3a chronic kidney disease (HCC) TSH Routine 09/16/2024 3:06 PM CDT Acquired hypothyroidism BASIC METABOLIC PANEL Routine 09/16/2024 3:06 PM CDT Stage 3a chronic kidney disease (HCC) URINALYSIS, MICROSCOPIC ONLY Routine 07/22/2024 10:12 AM [...] Recently Relevant to Health Maintenance Results * (ABNORMAL) Urine culture Urine, clean voided (09/17/2024 12:32 PM CDT) Report Final Report: Greater than or equal to 100,000 colonies/mL of Citrobacter freundii complex Plus growth of clinically insignificant bacterial lashonda. (.) Comment:Testing performed by : [facility], [address] [facility]., [address] Organism CITROBACTER FREUNDII [employer]PLEX [facility] Organism PLUS GROWTH OF CLINICALLY INSIGNIFICANT LASHONDA. [facility] Urine, clean voided 09/17/2024 12:32 PM CDT 09/18/2024 12:16 AM CDT Narrative [facility] - 09/19/2024 3:50 PM CDT Testing performed by [facility] Microbiology Laboratory ([phone]) Organism Antibiotic Method Susceptibility Citrobacter freundii complex Ampicillin INTERPRETATION Resistant Citrobacter freundii complex Cefazolin INTERPRETATION Resistant Citrobacter freundii complex Nitrofurantoin INTERPRETATION Susceptible Citrobacter freundii complex Gentamicin INTERPRETATION Susceptible Citrobacter freundii complex Trimethoprim with Sulfamethoxazole INTERPRETATION Susceptible Citrobacter freundii complex Meropenem INTERPRETATION Susceptible Citrobacter freundii complex Cefepime INTERPRETATION Susceptible Citrobacter freundii complex Ciprofloxacin INTERPRETATION Susceptible Citrobacter freundii complex Ceftazidime INTERPRETATION Resistant Citrobacter freundii complex Ceftriaxone INTERPRETATION Resistant Citrobacter freundii complex Piperacillin/Tazobactam INTERPRETATION Resistant Tracy Hernández NP LAB MICROBIOLOGY - GENERAL OR DERABLES Final Result Performing Organization Address City/[facility]/ZIP Co de Phone Number AAMIR ALAS [address] [place] [address] * eGFR (09/16/2024 3:06 PM CDT) eGFR 78 >=60 mL/min/1. 73 m2 Comment: Interpretive Data [...] interpretive data was last reviewed 2021. Blood 09/16/2024 3:06 PM CDT 09/16/2024 10:43 PM CDT Tracy Hernández NP LAB BLOOD ORDERABLES Final Re sult Performing Organization Address City/[facility]/ZIP Co de Phone Number AAMIR ALAS [address] [address] [place] [address] * TSH (09/16/2024 3:06 PM CDT) Thyroid Stimulating Hormone 3.35 0.30 - 4.20 mcIUnit/mL Blood 09/16/2024 3:06 PM CDT 09/16/2024 10:39 PM CDT Tracy Hernández NP LAB BLOOD ORDERABLES Final Re sult Performing Organization Address City/[facility] Co de Phone [place] [address] [address] [place] [address] * Basic metabolic panel (09/16/2024 3:06 PM CDT) Pathologist [facility] Sodium 139 135 - 145 mmol/L Potassium, pl 4.1 3.3 - 4.9 mmol/L [facility] Chloride 100 97 - 110 mmol/L [facility] CO2 26 22 - 32 mmol/L [facility] Anion gap 13 2 - 15 mmol/L [facility] BUN 24 6 - 25 mg/dL [facility] Creatinine 0.74 0.60 - 1.10 mg/dL [facility] Glucose 136 70 - 199 mg/dL [facility] Comment: [...] interpretive data was last revised 2022. Calcium 8.8 8.5 - 10.3 mg/dL [facility] Blood 09/16/2024 3:06 PM CDT 09/16/2024 10:39 PM CDT Tracy Hernández NP LAB BLOOD ORDERABLES Final Re sult Performing Organization Address City/[facility]/ZIP Co de Phone Number [facility] [address] [address] [place] [address] * eGFR (07/22/2024 10:12 AM CDT) Pathologist [facility] eGFR 75 >=60 mL/min/1. 73 m2 [...] NP LAB BLOOD ORDERABLES Final Re sult [facility] [address] [address] [place] [address] * (ABNORMAL) Differential, auto (07/22/2024 10:12 AM CDT) Pathologist [facility] Neutrophil abs 4.47 1.50 - 6.50 K/cumm Imm gran abs 0.03 0.00 - 0.10 K/cumm [facility] Lymphocyte abs 2.26 0.80 - 3.30 K/cumm [facility] Monocyte abs 0.86(H) 0.20 - 0.80 K/cumm [facility] Eosinophil abs 0.16 0.00 - 0.50 K/cumm [facility] Basophil abs 0.05 0.00 - 0.10 K/cumm [facility] Neutrophil pct 57.1 % [facility] Comment: Interpretive Data Percent cell count reference ranges are not reported, since discordance with absolute values may lead to misinterpretation of CBC data. Current Interpretive Data was last revised on 2017. Imm gran pct 0.4 % [facility] Comment: Interpretive Data Percent cell count reference ranges are not reported, since discordance with absolute values may lead to misinterpretation of CBC data. Current Interpretive Data was last revised on 2017. Lymphocyte pct 28.9 % [facility] Comment: Interpretive Data Percent cell count reference ranges are not reported, since discordance with absolute values may lead to misinterpretation of CBC data. Current Interpretive Data was last revised on 2017. Monocyte pct 11.0 % [facility] Comment: Interpretive Data Percent cell [...] revised on 2017. Basophil pct 0.6 % [facility] Comment: Interpretive Data Percent cell count reference ranges are not reported, since discordance with absolute values may lead to misinterpretation of CBC data. Current Interpretive Data was last revised on 2017. Blood 07/22/2024 10:1 2 AM CDT 07/22/2024 9:19 PM CDT us Tracy Hernándze NP LAB BLOOD ORDERABLES Final Re sult [facility] [address] [address] [place] [address] * (ABNORMAL) Thyroid Function [place] (07/22/2024 10:12 AM CDT) TSH 20.00(H) 0.30 - 4.20 mcIUnit/mL Blood 07/22/2024 10:1 2 AM CDT 07/22/2024 9:19 PM CDT us Tracy Hernández NP LAB BLOOD ORDERABLES Final Re sult AAMIR ALAS [address] [address] [place] [address] * (ABNORMAL) Urinalysis reflex to microscopic and [...] tendency for uric acid stone formation. Source: [facility] Current Interpretive Data was last [...] GENERAL OR DERABLES Final Result AAMIR ALAS [address] [address] [place] [address] * (ABNORMAL) CBC with auto differential (07/22/2024 [...] NRBC abs 0.00 0.00 - 0.01 K/cumm [facility] Blood 07/22/2024 10:1 2 AM CDT 07/22/2024 9:19 PM CDT Tracy Hernández NP LAB BLOOD ORDERABLES Final Re sult Performing Organization Address [facility] de Phone Number AAMIR ALAS [address] [address] [place] [address] * (ABNORMAL) Urinalysis, microscopic only (07/22/2024 10:12 AM CDT) WBC, ur >50(A) 0 - 5 /HPF RBC, ur 21-50(A) 0 - 2 /HPF [facility] Bacteria, ur 4+(A) [facility] Amorphous crystals, ur 1+(A) [facility] Culture Reflex Comment Reflex to urine culture will be performed. [facility] Urine, clean voided 07/22/2024 10:12 AM CDT 07/22/2024 9:19 PM CDT Tracy Hernández NP LAB URINE ORDERABLES Final Re sult Performing Organization Address [facility] Co de Phone Number AAMIR ALAS [address] [address] [facility] [place], [place] [id number] * (ABNORMAL) Urine culture Urine, clean voided (07/22/2024 10:12 AM CDT) Report Final Report: Greater than or equal to 100,000 colonies/mL of Escherichia coli Plus growth of clinically insignificant bacterial lashonda. (.) Comment:Testing performed by : [facility], [address] [place]., [address] Organism ESCHERICHIA COLI [facility] Organism PLUS GROWTH OF CLINICALLY INSIGNIFICANT LASHONDA. [facility] Urine, clean voided 07/22/2024 10:12 AM CDT 07/23/2024 2:19 AM CDT Narrative [facility] - 07/25/2024 12:17 PM CDT Urine culture reflexed based upon urinalysis results. Testing performed by [facility] Microbiology Laboratory ([phone]) Organism Antibiotic Method Susceptibility Escherichia coli Ampicillin [...] OR DERABLES Final Result Performing Organization Address City/[facility]/ZIP Co de Phone Number AAMIR ALAS [address] [address] [place] [address] * T4, free (07/22/2024 10:12 AM CDT) Free T4 1.09 0.90 - 1.70 ng/dL Blood 07/22/2024 10:1 2 AM CDT 07/22/2024 9:30 PM CDT Tracy Hernández NP LAB BLOOD ORDERABLES Final Re sult Performing Organization Address City/[facility]/ZIP Co de Phone Number AAMIR ALAS [address] [address] [place] [address] * (ABNORMAL) Hemoglobin A1c (07/22/2024 10:12 AM CDT) Hgb A1C 5.9(H) 4.0 - 5.6 % Estimated Average Glucose 123 mg/dL AAMIR ALAS Comment: The ADA recommends reporting an estimated Average Glucose (eAG) with all Hemoglobin A1c results using the equation derived from a study of 507 normal and diabetic adults. Minority populations were underrepresented and children were not included. (Diabetes Care 31:6876-1959, 2008). The eAG is not equivalent to a fasting glucose. Blood 07/22/2024 10:1 2 AM CDT 07/22/2024 9:19 PM CDT Tracy Hernández NP LAB BLOOD ORDERABLES Final Re sult AAMIR [address] [address] [place] [address] * (ABNORMAL) Lipid panel (07/22/2024 10:12 AM [...] revised on 2017. Triglycerides 177(H) <=149 mg/dL [facility]R ALAS Comment: Interpretive Data Ages < or [...] NP LAB BLOOD ORDERABLES Final Re sult [facility] [address] [place] [address] * Comprehensive metabolic panel (07/22/2024 [...] BLOOD ORDERABLES Final Re sult AAMIR ALAS [address] [address] [place] [address] * Dexa Axial Skeleton Bone Density 1 [...] Dual x-ray absorptiometry (DEXA) was performed using [employer] system. GENERAL GUIDELINES: According to WHO guidelines, [...] Dual x-ray absorptiometry (DEXA) was performed using [employer] system. GENERAL GUIDELINES: According to WHO guidelines, [...] to Health Maintenance Insurance MEDICARE COMMERCIAL GENERIC [facility] MEDICARE COMMERCIAL GENERIC MEDICARE COMMERCIAL GENERIC Advance Directives For more information, please contact: [phone] Documents on File Type Date Recorded Patient Executive Chairman Of The Board Expl anation ADVANCE DIRECTIVE 08/20/2019 2:35 PM Power of Drupal Developer-Medical ADVANCE DIRECTIVE 07/15/2018 11:14 AM ADVANCE DIRECTIVE [...] 3:25 PM 12/13/2017 4:26 PM Care Teams Debridging Machine Operator Relationship Specialty Start Date End Date Tracy Hernández NP [address] [address] PCP - General Family Medicine 07/22/24
--- OUTSIDE RECORDS SUMMARY | 2024-09-28 13:21 | XMS_ITS | Encounter Summary ---
Author Organization [facility] Address [address] [place] [address] Phone Care Team Providers Care Mill Manager Name Role Phone Matt Painting MD Primary Care Provider [phone] Tyesha Abarca DPT Unavailable Unavailable Yesi Cook DPT Unavailable Unavailable Renetta Pearl MA Unavailable [phone] Vernon Hernandez RN Unavailable [phone] Vernon Hernandez RN Unavailable [phone] Renetta Pearl MA Unavailable [phone] Shanna Oakes SENIOR IT BUSINESS ANALYST Primary Care Provider [phone] Tracy Hernández SENIOR IT BUSINESS ANALYST Primary Care Provider [phone] Encounter Details Date Type Department Care Team (Late st Contact Info) Description 04/15/2017 Orders Only [facility] ProviderChente MD [facility] [place] [address] Social History Tobacco Use Types Packs/Day Years Used Date Smoking Tobacco: Never Smokeless Tobacco: Never Alcohol Use Standard Drinks/Week Comments No 0 (1 standard drink = 0.6 oz pur e alcohol) Comments Unknown Sex and Gender Information Value Date Recorded Sex Assigned at Not on file Legal Sex Female 11:38 PM DENTAL 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 us Historical Provider LAB BLOOD ORDERABLES Arline l Result documented in this encounter Visit Diagnoses Not on filedocumented in this encounter Care Teams Mill Manager Relationship Specialty Start Date End Date Matt Painting MD [address] [facility] [[email or web address] [address] [place] [address] PCP - General 05/31/16 12/08/19 Shanna Oakes NP [address] [place] [address] [address] [place] [address] PCP - General Internal Medicine 12/09/19 07/21/24 Tracy Hernández NP [address] [facility] [[email or web address] [address] [place] [address] PCP - General Family Medicine 07/22/24 Tyesha Abarca DPT Physical Therapist Physical Therapy 04/30/17 02/08/18 Yesi Cook DPT Physical Therapist Physical Therapy 07/30/17 03/06/20 Renetta Pearl MA [address] [place] [address] [address] [place] [address] ACO Care Cytometry Technologist 12/15/17 12/31/17 Vernon Hernandez, OPHELIA [address] [place] [address] [address] [place] [address] Cloth Examiner Hand 01/01/18 02/11/18 Vernon Hernandez RN [address] [facility] [address] [place], [place] [id number] [facility] Outpatient Deli Bakery Clerk 07/20/18 10/15/18 Renetta Pearl MA [address] [facility] [address] [place], [place] [id number] ACO Care Cytometry Technologist 07/21/18 07/21/18 documented as of this encounter
--- OUTSIDE RECORDS SUMMARY | 2024-09-28 13:22 | XMS_ITS | Encounter Summary ---
Author Organization [facility] Address [address] [place] [address] Care Team Providers Care Radiation Oncologist Name Role Phone Matt Painting MD Primary Care Provider [phone] Tyesha Abarca DPT Unavailable Unavailable Yesi Cook DPT Unavailable Unavailable Renetta Pearl MA Unavailable [phone] Vernon Hernandez RN Unavailable [phone] Vernon Hernandez RN Unavailable [phone] Renetta Pearl MA Unavailable [phone] Shanna Oakes CDL DEDICATED TRUCK DRIVER Primary Care Provider [phone] Tracy Hernández CDL DEDICATED TRUCK DRIVER Primary Care Provider [phone] Encounter Details Date Type Department Care Team (Late st Contact Info) Description 11/28/2017 Documentation [facility] [address] [place] [address] Opal Marsh MSW Social History Tobacco Use Types Packs/Day Years Used Date Smoking Tobacco: Never Smokeless Tobacco: Never Alcohol Use Standard Drinks/Week Comments No 0 (1 standard drink = 0.6 oz pur e alcohol) Comments Unknown Sex and Gender Information Value Date Recorded Sex Assigned at Not on file Legal Sex Female 11:38 PM LOW PRESSURE KETTLE OPERATOR Gender Identity Female 08/02/2019 9:59 AM [...] on filedocumented in this encounter Care Teams Radiation Oncologist Relationship Specialty Start Date End Date Matt Painting MD [address] [facility] [address], [place] [address] PCP - General 05/31/16 12/08/19 Shanna Oakes NP [address] [place] [address] [address] [place] [address] PCP - General Internal Medicine 12/09/19 07/21/24 Tracy Hernández NP [address] [facility] [address] [place] [address] PCP - General Family Medicine 07/22/24 Tyesha Abarca, KIMBERLY Physical Therapist Physical Therapy 04/30/17 02/08/18 Joyce, Yesi E., DPT Physical Therapist Physical Therapy 07/30/17 03/06/20 Renetta Pearl MA [address] [place] [address] ACO Care Senior Science Consultant 12/15/17 12/31/17 Vernon Hernandez RN [address] [place] [address] [address] [place], [place] [id number] Law Firm Partner 01/01/18 02/11/18 Vernon Hernandez RN [address] [place] [address] [address] [place], [place] [id number] [facility] Outpatient Classroom Instructional Aide 07/20/18 10/15/18 Renetta Pearl MA [address] [place] [address] ACO Care Senior Science Consultant 07/21/18 07/21/18 documented as of this encounter
--- OUTSIDE RECORDS SUMMARY | 2024-09-28 13:22 | XMS_ITS | Referral Summary ---
Author Organization [facility] Address [address] [place] [address] Care Team Providers Care Preparation Room Manager Name Role Phone Tracy Hernández NP Primary Care Provider [phone] Encounters Date Type Department Care Team Description 09/20/2024 Orders Only [facility] Primary Care at [address] [phone] Tracy Hernández NP 09/20/2024 Orders Only [facility] Ophthalmology [address] 6th [address], [address] [place] [address] Jackie Mckeon OD Encounter for observation for other suspected diseases and conditions ruled out (Primary Dx) 09/17/2024 12:32 PM CDT - 09/17/2024 11:59 PM CDT Hospital Encounter [facility] [address] [place], [place] [phone] Frequent UTI Discharge Disposition: Discharge to home or self care 09/17/2024 Results Follow-Up [facility] Primary Care at [address] [phone] Tracy Hernández PILE TRIMMER Basic metabolic panel, TSH, eGFR, Urine culture Urine, clean voided 09/17/2024 12:30 PM CDT Lab [facility] Outpatient Lab at [address] [phone] 09/16/2024 3:06 PM CDT - 09/16/2024 11:59 PM CDT Hospital Encounter [facility] [address] [place] [address] Stage 3a chronic kidney disease (HCC); Acquired hypothyroidism Discharge Disposition: Discharge to home or self care 09/16/2024 3:00 PM CDT Lab [facility] Outpatient Lab at [address] [phone] 09/16/2024 2:00 PM CDT Office Visit [facility] Primary Care at [address] [phone] Tracy Hernández NP Stage 3a chronic kidney disease (HCC) (Primary Dx); Frequent UTI; Acquired hypothyroidism 08/30/2024 Nurse Triage [facility] Primary Care at [address] [phone] Tracy Hernández NP 08/30/2024 Orders Only [facility] Primary Care at [address] [phone] Tracy Hernández, PILE TRIMMER 08/30/2024 Telephone [facility] Primary Care at [address] [phone] Tracy Hernández, PILE TRIMMER Med Refill 08/30/2024 Telephone [facility] [address], [place] [address] Shanna Oakes NP 08/27/2024 Telephone [facility] [address] [place] [address] Manuela Shah NP 08/12/2024 Telephone [facility] Primary Care at [address] [phone] Hernández, Tracy A., PILE TRIMMER Symptom Based Call; Medical Question/Miscellaneou s 08/09/2024 Orders Only [facility] Primary Care at [address] [phone] Tracy Hernández NP 08/02/2024 Nurse Triage [facility] Primary Care at [address] [phone] Tracy Hernández NP 07/23/2024 Results Follow-Up [facility] Primary Care at [address] [phone] Tracy Hernández NP Comprehensive metabolic panel, Thyroid Function [place], Hemoglobin A1c, Additional followed-up results: 8 07/22/2024 10:12 AM CDT - 07/22/2024 11:59 PM CDT Hospital Encounter [address] [address] Hypertensive renal disease; Acquired hypothyroidism; Elevated glucose; Hypercholesterolemia Discharge Disposition: Discharge to home or self care 07/22/[address] [place] [phone] Shanna Oakes NP Medical Question/Miscellaneou s 07/22/2024 10:15 AM CDT Lab [facility] Outpatient Lab at [address] [phone] 07/22/2024 9:30 AM CDT Office Visit [facility] Primary Care at [address] [phone] Tracy Hernández NP Acquired hypothyroidism (Primary Dx); Hypertensive renal disease; Hypercholesterolemia; Elevated glucose; Gastroesophageal reflux disease without esophagitis; Stage 3a chronic kidney disease (HCC); Generalized anxiety disorder with panic attacks; Major depression single episode, in partial remission; Primary insomnia 07/05/2024 Telephone [place] [address] [facility] [address] [place] [phone] Shanna Oakes NP Referral Request from [...] 1 tablet (100 mcg total) by mouth hvac installer before breakfast 90 tablet 07/24/19 25 Active [...] zolpidem. Assessment & Plan (03/30/2024 12:53 PM RN NEONATAL): Stable, continue Zolpidem Assessment & Plan (12/29/2023 1:26 PM CDT): Worse. Will switch to an ER Zolpidem. Dermatochalasis of both upper eyelids 10/15/2022 Assessment & Plan (10/16/2023 4:47 PM CDT): Pt not bothered, monitor Assessment & Plan (10/15/2022 12:55 PM CDT): Not v/s, monitor Atherosclerosis of aorta 05/09/2022 Overview (05/09/2022): 05/09/21- xray Assessment & Plan (03/30/2024 12:52 PM RN NEONATAL): Stable, continue aspirin and Atorvastatin Assessment & Plan (09/16/2023 10:46 AM CDT): Stable, continue Atorvastatin and aspirin. Assessment & Plan (01/13/2023 10:31 AM RN NEONATAL): Stable, continue aspirin and Atorvastatin Encounter for Medicare annual wellness exam 05/02 Assessment & Plan (03/30/2024 12:49 PM RN NEONATAL): Please see below for a list of your medical conditions and recommendations. Assessment & Plan (01/13/2023 10:30 AM RN NEONATAL): Please see below for a list of [...] 020 Assessment & Plan (03/30/2024 12:53 PM RN NEONATAL): Stable, continue aspirin and Atorvastatin Assessment & Plan (09/16/2023 10:47 AM CDT): Stable, continue Atorvastatin and aspirin Assessment & Plan (01/13/2023 10:32 AM RN NEONATAL): Stable, continue aspirin and Atorvastatin Assessment & Plan (01/03/2022 1:32 PM CDT): Stable, continue aspirin and Atorvastatin. Assessment & Plan (05/03/2021 11:10 AM RN NEONATAL): Stable, continue Atorvastatin and aspirin Assessment & [...] UTI Assessment & Plan (04/15/2017 12:43 PM RN NEONATAL): Having increased urinary frequency but no pain, feels similar to UTIs in the past. UA today with just trace blood, negative for leuks and nitrites Advised to keep hydrated and will send UA for culture BMI 28.0-28.9,adult 04/15/2017 Assessment & Plan (10/08/2017 11:47 AM CDT): Try to cut back on calories. Most people should eat between 6220-9860 calories to lose weight. Decrease your carbohydrate [...] help. Assessment & Plan (04/15/2017 11:14 AM RN NEONATAL): BMI Follow-up includes: nutrition counseling and exercise [...] management. Assessment & Plan (05/03/2021 11:10 AM RN NEONATAL): Stable, continue Gabapentin and Duloxetine Assessment & Plan (12/19/2019 7:35 PM CDT): Stable, continue duloxetine Assessment & Plan (06/14/2019 8:10 AM CDT): Requires chronic duloxetine and gabapentin therapy. Does see pain management at times. Assessment & Plan (04/15/2017 12:40 PM RN NEONATAL): Improved and using lidocaine patches which help. Suspect this is more from bulging disc than it is from UTI and patient agrees. Major depression single episode, in partial amanda ssion 08/28/2016 Assessment & Plan (03/30/2024 12:53 PM RN NEONATAL): Stable, continue Duloxetine Assessment & Plan (12/29/2023 1:26 PM CDT): Stable, continue Duloxetine Assessment & Plan (01/13/2023 10:33 AM RN NEONATAL): Stable, continue Duloxetine Assessment & Plan (09/10/2022 3:17 PM CDT): Improved. Continue Duloxetine Assessment & Plan (05/03/2022 2:59 PM RN NEONATAL): Stable, continue Duloxetine Assessment & Plan (01/03/2022 1:30 PM CDT): Intermittent. Continue Duloxetine. Assessment & Plan (05/03/2021 11:09 AM RN NEONATAL): Chronic and unchanged. Continue Duloxetine Assessment & [...] Duloxetine Assessment & Plan (02/16/2018 1:25 PM RN NEONATAL): Doing well with the clonazepam and duloxetine Assessment & Plan (04/15/2017 12:42 PM RN NEONATAL): Still teary in the room over the [...] disease Assessment & Plan (03/30/2024 12:49 PM RN NEONATAL): The blood pressure is adequately controlled. Ideally, [...] way. Assessment & Plan (01/13/2023 10:30 AM RN NEONATAL): The blood pressure is adequately controlled. Ideally, [...] way. Assessment & Plan (05/03/2022 2:57 PM RN NEONATAL): The blood pressure is adequately controlled. Ideally, [...] way. Assessment & Plan (05/03/2021 11:08 AM RN NEONATAL): The blood pressure is adequately controlled. Ideally, [...] Future Assessment & Plan (03/30/2024 12:50 PM RN NEONATAL): Stable, continue levothyroxine Assessment & Plan (12/29/2023 1:24 PM CDT): Stable, continue levothyroxine Assessment & Plan (09/16/2023 10:46 AM CDT): Stable? Will recheck today. Assessment & Plan (01/13/2023 10:31 AM RN NEONATAL): Stable, continue levothyroxine. Assessment & Plan (09/10/2022 3:15 PM CDT): Stable? Will recheck today. Assessment & Plan (05/03/2022 2:57 PM RN NEONATAL): Stable? Will recheck today. Assessment & Plan (01/03/2022 1:24 PM CDT): Stable, continue levothyroxine Assessment & Plan (05/03/2021 11:08 AM RN NEONATAL): Stable? Continue levothyroxine. Assessment & Plan (11/08/2020 [...] regimen. Assessment & Plan (03/30/2024 12:49 PM RN NEONATAL): Continue low fat eating- limit fried foods, [...] prescribed. Assessment & Plan (01/13/2023 10:30 AM RN NEONATAL): Continue low fat eating- limit fried foods, [...] prescribed. Assessment & Plan (05/03/2022 2:58 PM RN NEONATAL): Continue low fat eating- limit fried foods, [...] day. Assessment & Plan (05/03/2021 11:09 AM RN NEONATAL): Continue low fat eating- limit fried foods, [...] attacks Assessment & Plan (03/30/2024 1:37 PM RN NEONATAL): Not controlled, continue Lorazepam as needed Assessment & Plan (01/13/2023 10:32 AM RN NEONATAL): Stable, continue Duloxetine and Lorazepam as needed. Assessment & Plan (09/10/2022 3:18 PM CDT): Improved. Continue Duloxetine and uses Lorazepam as needed. Try not take this medication daily or emt intermediate is at all possible as it can lead to dependence/addiction/tolerance, memory issues and may cause depression emt intermediate. Keep this medication out of the reach of other people. Do not drive or drink alcohol with this medication. Assessment & Plan (05/03/2022 3:00 PM RN NEONATAL): Chronic and unchanged. Continue Lorazepam as needed. Assessment & Plan (01/03/2022 1:31 PM CDT): Stable, continue Lorazepam as needed Assessment & Plan (11/08/2020 5:25 PM CDT): Stable, continue Clonazepam Assessment & Plan (05/22/2020 8:01 PM CDT): Stable, continue Clonazepam as needed. Do not take this medication daily or residential is at all possible as it can lead to dependence/addiction/tolerance, memory issues and may cause depression emt intermediate. Keep this medication out of the reach [...] disease) Assessment & Plan (03/30/2024 12:53 PM RN NEONATAL): Try to eat smaller more frequent meals. [...] weight. Assessment & Plan (01/13/2023 10:32 AM RN NEONATAL): Try to eat smaller more frequent meals. [...] weight. Assessment & Plan (05/03/2022 2:59 PM RN NEONATAL): Try to eat smaller more frequent meals. [...] weight. Assessment & Plan (05/03/2021 11:09 AM RN NEONATAL): Try to eat smaller more frequent meals. [...] today. Assessment & Plan (03/30/2024 12:53 PM RN NEONATAL): Continue to increase water intake. Limit use [...] weight. Assessment & Plan (01/13/2023 10:32 AM RN NEONATAL): Continue to increase water intake. Limit use of NSAIDs including Ibuprofen, Aleve, Motrin, etc. Continue aerobic exercise and maintain a healthy weight. Assessment & Plan (09/10/2022 3:20 PM CDT): Continue to increase water intake. Limit use of NSAIDs including Ibuprofen, Aleve, Motrin, etc. Continue aerobic exercise and maintain a healthy weight. Assessment & Plan (05/03/2022 3:00 PM RN NEONATAL): Continue to increase water intake. Limit use of NSAIDs including Ibuprofen, Aleve, Motrin, etc. Continue aerobic exercise and maintain a healthy weight. Assessment & Plan (01/03/2022 1:31 PM CDT): Continue to increase water intake. Limit use of NSAIDs including Ibuprofen, Aleve, Motrin, etc. Continue aerobic exercise and maintain a healthy weight. Assessment & Plan (05/03/2021 11:10 AM RN NEONATAL): Continue to increase water intake. Limit use [...] (06/12/2018): Added automatically from request for surgery [id number] Encounter for weight management 06/05/2018 07/22/2024 Dyslipidemia [...] needed Assessment & Plan (04/10/2018 4:07 PM RN NEONATAL): The patient has done very well overall [...] x-rays. Assessment & Plan (02/18/2018 11:58 AM RN NEONATAL): Treatment options were discussed. The patient would [...] on calories. Most people should eat between 3257-2280 calories to lose weight. Decrease your carbohydrate [...] on calories. Most people should eat between 0111-6009 calories to lose weight. Decrease your carbohydrate [...] 07/22/2024 Assessment & Plan (04/15/2017 12:41 PM RN NEONATAL): Will do ambulatory PT as she is [...] vascular dysfunction 02/27/2015 07/22/2024 Secondary cataract 11/11/2014 Ulcerative blepharitis 11/11/201407/22 Assessment & Plan (09/28/2019 [...] on file Legal Sex Female 11:38 PM RN NEONATAL Gender Identity Female 08/02/2019 9:59 AM CDT [...] 09/16/2024 2:21 PM CDT Plan of Treatment Not on file Medical Devices Implanted Type Area Auto Radiator Specialist Device Identifier Shelf Expiration Date Model / Serial / Lot [employer] 6191-1-010 Simplex P Radiopaque Full Dose Cement Bone Sterile - [id number] Implanted:Qty: 1 on 07/15/2018 by Irving Mccauley MD at [facility] Bone Cement Left: Knee [employer] 07/31/2020 6191-1-010 / / [id number] [employer] 6191-1-010 Simplex P Radiopaque Full Dose Cement Bone Sterile - [id number] Implanted:Qty: 1 on 07/15/2018 by Irving Mccauley MD at [facility] Bone Cement Left: Knee [employer] 07/31/2020 6191-1-010 / / [id number] Baseplate Shoulder 15mm Length - [id number] Implanted:Qty: 1 on 12/10/2017 by Tayo Murray DO at [facility] Right: Shoulder [employer] Rhea 09/30/2022 GBP-0960-0 30-15 / / [id number] Screw 5.5mm 20mm Length Shoulder - [id number] Implanted:Qty: 1 on 12/10/2017 by Tayo Murray DO at [facility] Right: Shoulder [employer] Rhea 07/29/2022 SCW-0960-0 55-20 / / [id number] Screw And Cap 4.5mm 15mm Shoulder - [id number] Implanted:Qty: 2 on 12/10/2017 by Tayo Murray DO at [facility] Right: Shoulder [employer] Rhea 08/28/2020 SSC-0960-0 45-15 / / [id number] Screw And Cap 4.5mm 20mm Shoulder - [id number] Implanted:Qty: 1 on 12/10/2017 by Tayo Murray DO at [facility] Right: Shoulder [employer] Rhea 06/01/2022 SSC-0960-0 45-20 / / [id number] Screw And Cap 4.5mm 25mm Shoulder - [id number] Implanted:Qty: 1 on 12/10/2017 by Tayo Murray DO at [facility] Right: Shoulder [employer] Rhea 05/30/2022 SSC-0960-0 45-25 / / [id number] [employer]osphere Shoulder 5mm Eccentric - [id number] Implanted:Qty: 1 on 12/10/2017 by Tayo Murray DO at [facility] Right: Shoulder [employer] Rhea 11/30/2021 GLS-0960-0 5E / / [id number] [employer] R[employer] [id number] 1 Titan 16.5mm 12.1mm 90.4mm Press Fit 12 Spline Modular - [id number] Implanted:Qty: 1 on 12/10/2017 by Tayo Murray DO at [facility] Right: Shoulder [employer] Rhea 09/30/2021 STEM-0920- 025-11 / / [id number] Body Shoulder Small Reverse Sip-[id number] - [id number] Implanted:Qty: 1 on 12/10/2017 by Tayo Murray DO at [facility] Right: Shoulder [employer] Rhea 04/02/2022 BBS-0960-2 1SML / / [id number] Liner +0mm 9.6mm Standard 20mm 2.7mm 38.7mm Shoulder Humeral - [id number] - [id number] Implanted:Qty: 1 on 12/10/2017 by Tayo Murray DO at [facility] Right: Shoulder Inte[employer] Rhea 04/30/2021 LNR-0960-0 0S / LNR-0960-0 0S / [id number] [employer]O rtho [id number] Shannan Ii [id number] Knee Oval Component Patellar Uhmwpe - [id number] Implanted:Qty: 1 on 07/15/2018 by Irving Mccauley MD at [facility] Left: Knee [employer]/ Ortho [id number] 04/25/2028 [id number] / / [id number] [employer]/O rtho [id number] Journey Knee Left 3 Baseplate Tibial - [id number] Implanted:Qty: 1 on 07/15/2018 by Irving Mccauley MD at [facility] Left: Knee [employer]/ Ortho [id number] 09/23/2027 [id number] / / [id number] [employer]/O rtho [id number] Journey Ii Cruciate Retain Knee Left 4 Component Femoral Cocr - [id number] Implanted:Qty: 1 on 07/15/2018 by Irving Mccauley MD at [facility] Left: Knee [employer]/ Ortho [id number] 12/06/2027 [id number] / / [id number] [employer]/O rtho [id number] Journey Ii Left 3-4 Deep [facility] Insert Articular Xlpe - [id number] Implanted:Qty: 1 on 07/15/2018 by Irving Mccauley MD at [facility] Left: Knee [employer]/ Ortho [id number] 03/09/2026 [id number] / / [id number] Explanted Type Area Auto Radiator Specialist Device Identifier Shelf Expiration Date Model / Serial / Lot Integra [employer] Rhea [id number] 2mm 150mm Elbow Shoulder Guide Pin Orthopedic - [id number] Explanted:Qty: 2 on 12/10/2017 at [facility] Right: Shoulder Dec[employer] [id number] / / Procedures Procedure Name Priority [...] bacterial lashonda. (.) Comment:Testing performed by : [facility], [address] [facility], [place]., [address] Organism CITROBACTER FREUNDII COMPLEX AAMIR ALAS Organism PLUS GROWTH OF CLINICALLY INSIGNIFICANT LASHONDA. AAMIR ALAS Urine, clean voided 09/17/2024 12:32 PM CDT 09/18/2024 12:16 AM CDT Narrative AAMIR ALAS - 09/19/2024 3:50 PM CDT Testing performed by [facility] Microbiology Laboratory ([phone]) Organism Antibiotic Method Susceptibility Citrobacter freundii complex [...] GENERAL OR DERABLES Final Result AAMIR ALAS [address] [address] Department [place] [address] * eGFR (09/16/2024 3:06 PM CDT) eGFR [...] Inclusion of Race in Diagnosing Kidney Disease, [place] 2020). The CKD-EPI equation should not be used for patients with unstable renal function and has not been validated in children and those over 70. Current interpretive data was last reviewed 2021. Blood 09/16/2024 3:06 PM CDT 09/16/2024 10:43 PM CDT Tracy Hernández NP LAB BLOOD ORDERABLES Final Re sult Performing Organization Address [facility] Co de Phone Number AAMIR [address] [address] [place] [address] * TSH (09/16/2024 3:06 PM CDT) Thyroid Stimulating Hormone 3.35 0.30 - 4.20 mcIUnit/mL Blood 09/16/2024 3:06 PM CDT 09/16/2024 10:39 PM CDT Tracy Hernández NP LAB BLOOD ORDERABLES Final Re sult Performing Organization Address [facility] de Phone Number [facility] [address] [address] [facility] [place] [employer] [place] [address] * Basic metabolic panel (09/16/2024 3:06 PM CDT) Sodium 139 135 - 145 mmol/L Potassium, pl 4.1 3.3 - 4.9 mmol/L [facility] Chloride 100 97 - 110 mmol/L [facility] CO2 26 22 - 32 mmol/L [facility] Anion gap 13 2 - 15 mmol/L [facility] BUN 24 6 - 25 mg/dL [facility] Creatinine 0.74 0.60 - 1.10 mg/dL [facility] Glucose 136 70 - 199 mg/dL [facility] Comment: Interpretive Data Fasting glucose >/= 126 [...] 2022. Calcium 8.8 8.5 - 10.3 mg/dL AAMIR ALAS Blood 09/16/2024 3:06 PM CDT 09/16/2024 10:39 PM CDT Tracy Hernández NP LAB BLOOD ORDERABLES Final Re sult Performing Organization Address [facility] Co de Phone Number [facility] [address] [address] [place] [address] * eGFR (07/22/2024 10:12 AM CDT) eGFR [...] ORDERABLES Final Re sult Performing Organization Address [facility] Co de Phone Number [facility] [address] [address] [address] * (ABNORMAL) Differential, auto (07/22/2024 10:12 AM CDT) Neutrophil abs 4.47 1.50 - 6.50 K/cumm Imm gran abs 0.03 0.00 - 0.10 K/cumm [facility] Lymphocyte abs 2.26 0.80 - 3.30 K/cumm [facility] Monocyte abs 0.86(H) 0.20 - 0.80 K/cumm [facility] Eosinophil abs 0.16 0.00 - 0.50 K/cumm [facility] Basophil abs 0.05 0.00 - 0.10 K/cumm [facility] CH Neutrophil pct 57.1 % C[facility]ER Comment: Interpretive Data Percent cell [...] revised on 2017. Basophil pct 0.6 % [facility] Comment: Interpretive Data Percent cell count reference ranges are not reported, since discordance with absolute values may lead to misinterpretation of CBC data. Current Interpretive Data was last revised on 2017. Blood 07/22/2024 10:1 2 AM CDT 07/22/2024 9:19 PM CDT Tracy Hernández NP LAB BLOOD ORDERABLES Final Re sult Performing Organization Address [facility] Co de Phone Number AAMIR ALAS [address] [place] [address] * (ABNORMAL) Thyroid Function [place] (07/22/2024 10:12 AM CDT) TSH 20.00(H) 0.30 - 4.20 mcIUnit/mL Blood 07/22/2024 10:1 2 AM CDT 07/22/2024 9:19 PM CDT Tracy Hernández NP LAB BLOOD ORDERABLES Final Re sult Performing Organization Address [facility] de Phone Number AAMIR ALAS [address] [address] [facility] [place] [employer] [place] [address] * (ABNORMAL) Urinalysis reflex to microscopic and culture Urine, clean voided (07/22/2024 10:12 AM CDT) Color, ur Yellow Yellow Clarity, ur Turbid(A) Clear [facility] Specific gravity, ur 1.013 1.003 - 1.030 [...] tendency for uric acid stone formation. Source: [facility] [employer] Current Interpretive Data was last revised on [...] to microscopic UA will be performed. [facility] CH Urine, clean voided 07/22/2024 10:12 AM CDT 07/22/2024 9:19 PM CDT Tracy Hernández NP LAB MICROBIOLOGY - GENERAL OR DERABLES Final Result Performing Organization Address [facility] Co de Phone Number AAMIR [address] Department [place] [employer] [place] [address] * (ABNORMAL) CBC with auto differential (07/22/2024 10:12 AM CDT) WBC 7.83 3.80 - 9.90 K/cumm Hgb 13.2 11.9 - 15.5 g/dL [facility] Hct 42.3 35.6 - 45.5 % [facility] Plt 212 150 - 400 K/cumm [facility] MPV 10.6 9.1 - 12.3 fL [facility] RBC 4.01 3.90 - 5.20 M/cumm [facility] MCV 105.5(H) 81.3 - 96.4 fL [facility] MCH 32.9 27.1 - 33.3 pg [facility] MCHC 31.2(L) 32.3 - 35.7 g/dL [facility] RDW CV 13.8 11.1 - 14.9 % [facility] RDW SD 54.0(H) 35.7 - 48.1 fL [facility] NRBC abs 0.00 0.00 - 0.01 K/cumm [facility] Blood 07/22/2024 10:1 2 AM CDT 07/22/2024 9:19 PM CDT Tracy Hernández NP LAB BLOOD ORDERABLES Final Re sult Performing Organization Address [facility] Co de Phone Number AAMIR ALAS [address] [address] [place] [employer] [place] [address] * (ABNORMAL) Urinalysis, microscopic only [...] LAB URINE ORDERABLES Final Re sult AAMIR [address] [address] Department [place] [address] * (ABNORMAL) Urine culture Urine, clean voided (07/22/2024 10:12 AM CDT) Report Final Report: Greater than or equal to 100,000 colonies/mL of Escherichia coli Plus growth of clinically insignificant bacterial lashonda. (.) Comment:Testing performed by : [facility], [address] [place]., [address] Organism ESCHERICHIA COLI [facility] Organism PLUS GROWTH OF CLINICALLY INSIGNIFICANT LASHONDA. [facility] Urine, clean voided 07/22/2024 10:12 AM CDT 07/23/2024 2:19 AM CDT Narrative [facility] - 07/25/2024 12:17 PM CDT Urine culture reflexed based upon urinalysis results. Testing performed by [facility] Microbiology Laboratory ([phone]) Organism Antibiotic Method Susceptibility Escherichia coli Ampicillin [...] GENERAL OR DERABLES Final Result AAMIR ALAS [address] [address] [facility] [place] [place] [address] * T4, free (07/22/2024 10:12 AM CDT) Free T4 1.09 0.90 - 1.70 ng/dL Blood 07/22/2024 10:1 2 AM CDT 07/22/2024 9:30 PM CDT Tracy Hernández NP LAB BLOOD ORDERABLES Final Re sult Performing Organization Address [facility] Co de Phone Number AAMIR ALAS [phone] [address] [facility] [place] [place] [address] * (ABNORMAL) Hemoglobin A1c (07/22/2024 10:12 AM CDT) Pathologist [facility] Hgb A1C 5.9(H) 4.0 - 5.6 % Estimated Average Glucose 123 mg/dL AAMIR ALAS Comment: The ADA recommends reporting an estimated Average Glucose (eAG) with all Hemoglobin A1c results using the equation derived from a study of 507 normal and diabetic adults. Minority populations were underrepresented and children were not included. (Diabetes Care 31:0419-4736, 2008). The eAG is not equivalent to a fasting glucose. Blood 07/22/2024 10:1 2 AM CDT 07/22/2024 9:19 PM CDT Tracy Hernández NP LAB BLOOD ORDERABLES Final Re sult Performing Organization Address [facility] Co de Phone Number AAMIR ALAS [id number] [address] [place] [address] * (ABNORMAL) Lipid panel (07/22/2024 10:12 AM CDT) Pathologist [facility] Cholesterol 195 30 - 199 mg/dL Comment: [...] NCEP Expert Panel. Circulation 2004;110:227 3. Rick M et al. KANA Cardiol. 2020 July 01;5(5):540-548. [...] NP LAB BLOOD ORDERABLES Final Re sult [facility] [address] [address] Department of Laboratories [place], [place] [id number] * Comprehensive metabolic panel (07/22/2024 10:12 AM CDT) Sodium 140 135 - 145 mmol/L Potassium, pl 3.9 3.3 - 4.9 mmol/L CERNER Chloride 99 97 - 110 mmol/L CERNER [...] LAB BLOOD ORDERABLES Final Re sult AAMIR [address] [address] [place] [address] * Dexa Axial Skeleton Bone Density 1 [...] Dual x-ray absorptiometry (DEXA) was performed using HoloBetter Walk system. GENERAL GUIDELINES: According to WHO guidelines, [...] Dual x-ray absorptiometry (DEXA) was performed using HoloBetter Walk system. GENERAL GUIDELINES: According to WHO guidelines, [...] to Health Maintenance Insurance MEDICARE COMMERCIAL GENERIC [place] MEDICARE COMMERCIAL GENERIC MEDICARE COMMERCIAL GENERIC Advance Directives For more information, please contact: [phone] Documents on File Type Date Recorded Patient Cover Seamer Expl anation ADVANCE DIRECTIVE 08/20/2019 2:35 PM Power of Automatic Quilling Machine Operator-Medical ADVANCE DIRECTIVE 07/15/2018 11:14 AM ADVANCE DIRECTIVE [...] 3:25 PM 12/13/2017 4:26 PM Care Teams Preparation Room Manager Relationship Specialty Start Date End Date Tracy Hernández NP [address] [place] [address] PCP - General Family Medicine 07/22/24
--- OUTSIDE RECORDS SUMMARY | 2024-09-28 13:22 | XMS_ITS | Encounter Summary ---
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
--- OUTSIDE RECORDS SUMMARY | 2024-09-28 13:22 | XMS_ITS | Encounter Summary ---
Author Organization [facility] Healthcare Address [address] [place] [address] Care Team Providers Care Editing Computer Publisher Name Role Phone Tracy Hernández NP Primary Care Provider [phone] Reason for Visit * Reason Onset Date Comments Dysuria 08/02/2024 IV Antibiotics 08/02/2024 Encounter Details Date Type Department Care Team (Late st Contact Info) Description 08/02/2024 Nurse Triage [facility] Primary Care at [address] [address] Tracy Hernández NP [address] [place] [address] [address] [place] [address] Social History Tobacco Use Types [...] on file 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 Warm transferred. Does message need to be routed? No Reason for Warm Transfer: Symptoms: Patient has Red flag symptoms, quality eng evaluated patient and directed patient to call [...] Tract Infection on Antibiotic Follow-up Call - [id number] * Telephone Encounter - Odette Zimmer RN [...] on filedocumented in this encounter Care Teams Editing Computer Publisher Relationship Specialty Start Date End Date Tracy Hernández NP [address] [address] PCP - General Family Medicine 07/22/24 documented as of this encounter
--- NOTE | 2024-09-28 15:15 | ED.FEMALEGU ---
HPI - Female Genitourinary General Chief complaint: Urogenital-Female <Priscilla Rosario PA-C - Last Filed: 09/28/24 19:17> Stated complaint: uti symptoms <Priscilla Rosario PA-C - Last Filed: 09/28/24 19:17> Time Seen by Provider: 09/28/24 15:21 <Priscilla Rosario PA-C - Last Filed: 09/28/24 19:17> Focused HPI: 89 y/o F presents to the ED for lower back pain x1 week. Patient states the pain is throughout her low back. No injury or trauma. She notes that she is recently been battling a urinary tract infection as well as several antibiotics. She does feel that her urinary symptoms have improved. She denies dysuria or hematuria. Is endorsing low-grade fevers. No vomiting or abdominal pain. GENERAL: Well-appearing, well-nourished, and in no acute distress. HEAD: Normocephalic, atraumatic. CHEST: ?No respiratory distress. HEART: Regular rate and rhythm.? NEURO: ?Alert and oriented x3. Patient screened in triage and initial orders placed.? ?Additional care and disposition to be based upon?diagnostic testing and treatment. <Priscilla Rosario PA-C - Last Filed: 09/28/24 19:17> History of Present Illness HPI Narrative: Agree with HPI <Tim Medellin MD - Last Filed: 09/28/24 17:16> Related Data Home medications: Home Medications ?Medication ?Instructions ?Recorded ?Confirmed ?Last Taken ?Type amlodipine 5 mg tablet 5 mg PO DAILY 01/06/19 09/09/24 01/12/19 05:00 History 5 MG atorvastatin 20 mg tablet 20 mg PO DAILY 01/06/19 09/09/24 Unknown History biotin 1,000 mcg chewable tablet 1,000 mcg PO DAILY 01/06/19 09/09/24 Unknown History duloxetine 60 mg capsule,delayed 60 mg PO BID 01/06/19 09/09/24 Unknown History release hydrochlorothiazide 12.5 mg capsule 12.5 mg PO DAILY 01/06/19 09/09/24 Unknown History potassium chloride 10 mEq 10 meq PO DAILY 01/06/19 09/09/24 Unknown History tablet,extended release levothyroxine 50 mcg tablet 100 mcg PO DAILY 07/28/24 09/09/24 Unknown History (Synthroid) zolpidem 10 mg tablet 10 mg PO QHS 09/09/24 Unknown History <Priscilla Rosario PA-C - Last Filed: 09/28/24 19:17> Allergies/Adverse reactions: Allergies Allergy/AdvReac Type Severity Reaction Status Date / Time ciprofloxacin Allergy Intermediate Other Verified 09/09/24 10:24 valsartan Allergy Unknown Other Verified 09/09/24 10:24 nitrofurantoin AdvReac Mild Nausea,Vomiting, Verified 09/09/24 10:24 Diarrhea sulfamethoxazole AdvReac Unknown UPSET Verified 09/09/24 10:24 STOMACH trimethoprim AdvReac Unknown UPSET Verified 09/09/24 10:24 STOMACH <Priscilla Rosario PA-C - Last Filed: 09/28/24 19:17> Review of Systems Review of Systems: All systems reviewed & are unremarkable except as noted in HPI and below <Tim Medellin MD - Last Filed: 09/28/24 17:16> Constitutional: Constitutional: Reports no additional constitutional complaints <Tim Medellin MD - Last Filed: 09/28/24 17:16> Gastrointestinal: Gastrointestinal: Reports no additional gastrointestinal complaints <Tim Medellin MD - Last Filed: 09/28/24 17:16> Genitourinary: Genitourinary: Reports no additional female genitourinary complaints <Tim Medellin MD - Last Filed: 09/28/24 17:16> Musculoskeletal: Musculoskeletal: Reports no additional musculoskeletal complaints <Tim Medellin MD - Last Filed: 09/28/24 17:16> [facility] Past Medical History Medical History: Medical History (Updated 09/28/24 @ 17:14 by Tim Medellin MD) History of recurrent UTIs Elevated fecal calprotectin Abnormal CT scan Abdominal pain Bloating Constipation Degenerative disc disease Hypothyroid Hyperlipidemia Migraine Hypertension Spinal stenosis <Priscilla Rosario PA-C - Last Filed: 09/28/24 19:17> Surgical History Surgical History: Surgical History History of hysterectomy <Priscilla Rosario PA-C - Last Filed: 09/28/24 19:17> Social History Social History: Social History Smoking status: Never smoker Gender identity (if verbalized by the patient): Female <Priscilla Rosario PA-C - Last Filed: 09/28/24 19:17> Exam Narrative: GENERAL: Well-appearing, well-nourished, and in no acute distress. HEAD: Normocephalic, atraumatic. ENT: Mucous membranes moist. CHEST: Clear to auscultation. No respiratory distress. HEART: Regular rate and rhythm. Normal peripheral pulses. ABDOMEN: Soft, nontender, nondistended. Back: No midline tenderness the T/L-spine. No significant reproducible tenderness the paraspinal musculature of the back or buttock. No rash/bruising. EXTREMITIES: Normal range of motion. No edema. SKIN: Warm, dry, no rash. NEURO: Alert and oriented x3. PSYCH: Normal mood and affect. <Tim Medellin MD - Last Filed: 09/28/24 17:16> Course Course Emergency Course: No UTI or pyelonephritis. Suspect back pain is muscular in nature. Discharge home. Follow-up with PCP. <Tim Medellin MD - Last Filed: 09/28/24 17:16> Vital Signs Vital signs: Vital Signs Temperature 97.6 F 09/28/24 13:16 Pulse Rate 67 09/28/24 13:16 Respiratory Rate 09/28/24 13:16 Blood Pressure 116/78 09/28/24 13:16 Pulse Oximetry 99 09/28/24 13:16 Temperature 97.6 F 09/28/24 13:16 Pulse Rate 67 09/28/24 13:16 Respiratory Rate 20 09/28/24 13:16 Blood Pressure 116/78 09/28/24 13:16 Pulse Oximetry 99 09/28/24 13:16 <Priscilla Rosario PA-C - Last Filed: 09/28/24 19:17> Vital Signs Temperature 97.6 F 09/28/24 13:16 Pulse Rate 09/28/24 13:16 Respiratory Rate 09/28/24 13:16 Blood Pressure 116/78 09/28/24 13:16 Pulse Oximetry 99 09/28/24 13:16 Temperature 97.6 F 09/28/24 13:16 Pulse Rate 67 09/28/24 13:16 Respiratory Rate 20 09/28/24 13:16 Blood Pressure 116/78 09/28/24 13:16 Pulse Oximetry 99 09/28/24 13:16 <Tim Medellin MD - Last Filed: 09/28/24 17:16> MDM - Female Genitourinary Lab Data Labs: Lab Results 09/28/24 Range/Units 16:36 Urine Color Yellow (Yellow) Urine Appearance Clear (Clear) Urine pH 7.5 (5.0-9.0) Ur Specific [place] 1.010 (1.001-1.035) Urine Protein Trace (Negative) mg/dL Urine Glucose (UA) Negative (Negative) mg/dL Urine Ketones Negative (Negative) mg/dL Ur Blood (Man) Negative (Negative) Urine Nitrate Negative (Negative) Urine Bilirubin Negative (Negative) Urine Urobilinogen 0.2 (<2.0) mg/dL Leukocyte Esterase Rfl Negative (Negative) MICHELLE/UL Urine RBC 0-2 (0-2) /hpf Urine WBC 0-5 (0-3) /hpf Ur Squamous Epith Cells None seen (Few) /hpf Urine Bacteria None seen /hpf Urine Casts 3-5 <Priscilla Rosario PA-C - Last Filed: 09/28/24 19:17> Lab Results 09/28/24 Range/Units 16:36 Urine Color Yellow (Yellow) Urine Appearance Clear (Clear) Urine pH 7.5 (5.0-9.0) Ur Specific [place] 1.010 (1.001-1.035) Urine Protein Trace (Negative) mg/dL Urine Glucose (UA) Negative (Negative) mg/dL Urine Ketones Negative (Negative) mg/dL Ur Blood (Man) Negative (Negative) Urine Nitrate Negative (Negative) Urine Bilirubin Negative (Negative) Urine Urobilinogen 0.2 (<2.0) mg/dL Leukocyte Esterase Rfl Negative (Negative) MICHELLE/UL Urine RBC 0-2 (0-2) /hpf Urine WBC 0-5 (0-3) /hpf Ur Squamous Epith Cells None seen (Few) /hpf Urine Bacteria None seen /hpf Urine Casts 3-5 <Tim Medellin MD - Last Filed: 09/28/24 17:16> Discharge Plan Discharge Clinical Impression: Low back pain <Priscilla Rosario PA-C - Last Filed: 09/28/24 19:17> Patient Disposition: Home <Priscilla Rosario PA-C - Last Filed: 09/28/24 19:17> Condition: Stable <Priscilla Rosario PA-C - Last Filed: 09/28/24 19:17> Instructions: Back Pain (ED) <Priscilla Rosario PA-C - Last Filed: 09/28/24 19:17> Additional Instructions: Please return to the emergency department if you develop severe pain that is not controlled by pain medications or if you are unable to walk because of pain or weakness. Return to the emergency department immediately if you develop fevers, loss of bowel or bladder control (dribbling of urine or having accidents you wouldn't normally have), inability to urinate, numbness of your genital or anal area, or weakness/numbness of your legs or arms as these could all be signs of a serious medical emergency. <Priscilla Rosario PA-C - Last Filed: 09/28/24 19:17> Patient Language: Moroccan <Priscilla Rosario PA-C - Last Filed: 09/28/24 19:17> Prescriptions: New ibuprofen 400 mg tablet 400 mg PO TID Qty: 14 0RF No Action Linzess 72 mcg capsule 72 mcg PO DAILY 30 Days Qty: 30 5RF linaclotide 72 mcg capsule 72 mcg capsule 0RF zolpidem 10 mg tablet 10 mg PO QHS atorvastatin 20 mg Tablet 20 mg PO DAILY amlodipine 5 mg Tablet 5 mg PO DAILY potassium chloride 10 mEq Tablet Extended Release 10 meq PO DAILY hydrochlorothiazide 12.5 mg Capsule 12.5 mg PO DAILY duloxetine 60 mg Capsule,Delayed Release(Dr/Ec) 60 mg PO BID biotin 1,000 mcg Tablet,Chewable 1,000 mcg PO DAILY levothyroxine [Synthroid] 50 mcg tablet 100 mcg PO DAILY loratadine 10 mg tablet 10 mg PO DAILY Qty: 20 0RF hydroxyzine HCl 25 mg tablet 25 mg PO BID PRN (Reason: itching) Qty: 14 0RF tramadol 50 mg tablet 50 mg PO Q8H PRN (Reason: pain) Qty: 14 0RF <Priscilla Rosario PA-C - Last Filed: 09/28/24 19:17> Follow-up/Referrals: Betty,Tracy Jimenez SURGICAL DENTAL ASSISTANT [Primary Care Provider] - 1 Week <Priscilla Rosario PA-C - Last Filed: 09/28/24 19:17>
--- OUTSIDE RECORDS SUMMARY | 2024-09-28 15:44 | XMS_ITS | Referral Summary ---
Author Organization [facility] Address [address] [place] [address] Care Team Providers Care Dub Room Engineer Name Role Phone Tracy Hernández NP Primary Care Provider Encounters Date Type Department Care Team Description 09/20/2024 Orders Only [facility] Primary Care at [address] [phone] Tracy Hernández NP 09/20/2024 Orders Only [facility] Ophthalmology [address] 6[address], [address] [facility] [place] [address] Jackie Mckeon OD Encounter for observation for other suspected diseases and conditions ruled out (Primary Dx) 09/17/2024 12:32 PM CDT - 09/17/2024 11:59 PM CDT Hospital Encounter [facility] [address] [place], [place] [id number] Frequent UTI Discharge Disposition: Discharge to home or self care 09/17/2024 Results Follow-Up [facility] Primary Care at [address] [phone] Tracy Hernández MEDICAL DIRECTOR/HEAD TEAM PHYSICIAN Basic metabolic panel, TSH, eGFR, Urine culture Urine, clean voided 09/17/2024 12:30 PM CDT Lab [facility] Outpatient Lab at [address] [phone] 09/16/2024 3:06 PM CDT - 09/16/2024 11:59 PM CDT Hospital Encounter [facility] [address] [place] [address] Stage 3a chronic kidney disease (HCC); Acquired hypothyroidism Discharge Disposition: Discharge to home or self care 09/16/2024 3:00 PM CDT Lab [facility] Outpatient Lab at [address] [phone] 09/16/2024 2:00 PM CDT Office Visit [facility] Primary Care at [address] [phone] Tracy Hernández NP Stage 3a chronic kidney disease (HCC) (Primary Dx); Frequent UTI; Acquired hypothyroidism 08/30/2024 Nurse Triage [facility] Primary Care at [address] [phone] Tracy Hernández NP 08/30/2024 Orders Only [facility] Primary Care at [address] [phone] Tracy Hernández, MEDICAL DIRECTOR/HEAD TEAM PHYSICIAN 08/30/2024 Telephone [facility] Primary Care at [address] [phone] Tracy Hernández, MEDICAL DIRECTOR/HEAD TEAM PHYSICIAN Med Refill 08/30/2024 Telephone [facility] [address] [address] Shanna Oakes NP 08/27/2024 Telephone [facility] [address] [place] [address] [place] [address] Manuela Shah NP 08/12/2024 Telephone [facility] Primary Care at [address] [phone] Hernández, Tracy A., MEDICAL DIRECTOR/HEAD TEAM PHYSICIAN Symptom Based Call; Medical Question/Miscellaneou s 08/09/2024 Orders Only [facility] Primary Care at [address] [phone] Tracy Hernández NP 08/02/2024 Nurse Triage [facility] Primary Care at [address] [phone] Tracy Hernández NP 07/23/2024 Results Follow-Up [facility] Primary Care at [address] [phone] Tracy Hernánedz NP Comprehensive metabolic panel, Thyroid Function [place], Hemoglobin A1c, Additional followed-up results: 8 07/22/2024 10:12 AM CDT - 07/22/2024 11:59 PM CDT Hospital Encounter [address] [address] Hypertensive renal disease; Acquired hypothyroidism; Elevated glucose; Hypercholesterolemia Discharge Disposition: Discharge to home or self care 07/22/[address] [place] [address] Shanna Oakes NP Medical Question/Miscellaneou s 07/22/2024 10:15 AM CDT Lab [facility] Outpatient Lab at [address] [phone] 07/22/2024 9:30 AM CDT Office Visit [facility] Primary Care at [address] [phone] Tracy Hernández NP Acquired hypothyroidism (Primary Dx); Hypertensive renal disease; Hypercholesterolemia; Elevated glucose; Gastroesophageal reflux disease without esophagitis; Stage 3a chronic kidney disease (HCC); Generalized anxiety disorder with panic attacks; Major depression single episode, in partial remission; Primary insomnia 07/05/2024 Telephone [place] [id number] [place] [phone] Shanna Oakes NP Referral Request from [...] 1 tablet (100 mcg total) by mouth plant health manager before breakfast 90 tablet 07/24/19 25 Active [...] zolpidem. Assessment & Plan (03/30/2024 12:53 PM KEY PERSON): Stable, continue Zolpidem Assessment & Plan (12/29/2023 1:26 PM CDT): Worse. Will switch to an ER Zolpidem. Dermatochalasis of both upper eyelids 10/15/2022 Assessment & Plan (10/16/2023 4:47 PM CDT): Pt not bothered, monitor Assessment & Plan (10/15/2022 12:55 PM CDT): Not v/s, monitor Atherosclerosis of aorta 05/09/2022 Overview (05/09/2022): 05/09/21- xray Assessment & Plan (03/30/2024 12:52 PM KEY PERSON): Stable, continue aspirin and Atorvastatin Assessment & Plan (09/16/2023 10:46 AM CDT): Stable, continue Atorvastatin and aspirin. Assessment & Plan (01/13/2023 10:31 AM KEY PERSON): Stable, continue aspirin and Atorvastatin Encounter for Medicare annual wellness exam 05/02 Assessment & Plan (03/30/2024 12:49 PM KEY PERSON): Please see below for a list of your medical conditions and recommendations. Assessment & Plan (01/13/2023 10:30 AM KEY PERSON): Please see below for a list of [...] 020 Assessment & Plan (03/30/2024 12:53 PM KEY PERSON): Stable, continue aspirin and Atorvastatin Assessment & Plan (09/16/2023 10:47 AM CDT): Stable, continue Atorvastatin and aspirin Assessment & Plan (01/13/2023 10:32 AM KEY PERSON): Stable, continue aspirin and Atorvastatin Assessment & Plan (01/03/2022 1:32 PM CDT): Stable, continue aspirin and Atorvastatin. Assessment & Plan (05/03/2021 11:10 AM KEY PERSON): Stable, continue Atorvastatin and aspirin Assessment & [...] UTI Assessment & Plan (04/15/2017 12:43 PM KEY PERSON): Having increased urinary frequency but no pain, feels similar to UTIs in the past. UA today with just trace blood, negative for leuks and nitrites Advised to keep hydrated and will send UA for culture BMI 28.0-28.9,adult 04/15/2017 Assessment & Plan (10/08/2017 11:47 AM CDT): Try to cut back on calories. Most people should eat between 6430-3253 calories to lose weight. Decrease your carbohydrate [...] help. Assessment & Plan (04/15/2017 11:14 AM KEY PERSON): BMI Follow-up includes: nutrition counseling and exercise [...] management. Assessment & Plan (05/03/2021 11:10 AM KEY PERSON): Stable, continue Gabapentin and Duloxetine Assessment & Plan (12/19/2019 7:35 PM CDT): Stable, continue duloxetine Assessment & Plan (06/14/2019 8:10 AM CDT): Requires chronic duloxetine and gabapentin therapy. Does see pain management at times. Assessment & Plan (04/15/2017 12:40 PM KEY PERSON): Improved and using lidocaine patches which help. Suspect this is more from bulging disc than it is from UTI and patient agrees. Major depression single episode, in partial amanda ssion 08/28/2016 Assessment & Plan (03/30/2024 12:53 PM KEY PERSON): Stable, continue Duloxetine Assessment & Plan (12/29/2023 1:26 PM CDT): Stable, continue Duloxetine Assessment & Plan (01/13/2023 10:33 AM KEY PERSON): Stable, continue Duloxetine Assessment & Plan (09/10/2022 3:17 PM CDT): Improved. Continue Duloxetine Assessment & Plan (05/03/2022 2:59 PM KEY PERSON): Stable, continue Duloxetine Assessment & Plan (01/03/2022 1:30 PM CDT): Intermittent. Continue Duloxetine. Assessment & Plan (05/03/2021 11:09 AM KEY PERSON): Chronic and unchanged. Continue Duloxetine Assessment & [...] Duloxetine Assessment & Plan (02/16/2018 1:25 PM KEY PERSON): Doing well with the clonazepam and duloxetine Assessment & Plan (04/15/2017 12:42 PM KEY PERSON): Still teary in the room over the [...] disease Assessment & Plan (03/30/2024 12:49 PM KEY PERSON): The blood pressure is adequately controlled. Ideally, [...] way. Assessment & Plan (01/13/2023 10:30 AM KEY PERSON): The blood pressure is adequately controlled. Ideally, [...] way. Assessment & Plan (05/03/2022 2:57 PM KEY PERSON): The blood pressure is adequately controlled. Ideally, [...] way. Assessment & Plan (05/03/2021 11:08 AM KEY PERSON): The blood pressure is adequately controlled. Ideally, [...] Future Assessment & Plan (03/30/2024 12:50 PM KEY PERSON): Stable, continue levothyroxine Assessment & Plan (12/29/2023 1:24 PM CDT): Stable, continue levothyroxine Assessment & Plan (09/16/2023 10:46 AM CDT): Stable? Will recheck today. Assessment & Plan (01/13/2023 10:31 AM KEY PERSON): Stable, continue levothyroxine. Assessment & Plan (09/10/2022 3:15 PM CDT): Stable? Will recheck today. Assessment & Plan (05/03/2022 2:57 PM KEY PERSON): Stable? Will recheck today. Assessment & Plan (01/03/2022 1:24 PM CDT): Stable, continue levothyroxine Assessment & Plan (05/03/2021 11:08 AM KEY PERSON): Stable? Continue levothyroxine. Assessment & Plan (11/08/2020 [...] are stable, reviewed previous lipid levels in [facility]. Continue statin therapy. Lipitor (atorvastatin) Order for lipid panel was given today to be obtained. Pt voiced understanding of lab drawn and continuation of current medication regimen. Assessment & Plan (03/30/2024 12:49 PM KEY PERSON): Continue low fat eating- limit fried foods, [...] prescribed. Assessment & Plan (01/13/2023 10:30 AM KEY PERSON): Continue low fat eating- limit fried foods, [...] prescribed. Assessment & Plan (05/03/2022 2:58 PM KEY PERSON): Continue low fat eating- limit fried foods, [...] day. Assessment & Plan (05/03/2021 11:09 AM KEY PERSON): Continue low fat eating- limit fried foods, [...] attacks Assessment & Plan (03/30/2024 1:37 PM KEY PERSON): Not controlled, continue Lorazepam as needed Assessment & Plan (01/13/2023 10:32 AM KEY PERSON): Stable, continue Duloxetine and Lorazepam as needed. Assessment & Plan (09/10/2022 3:18 PM CDT): Improved. Continue Duloxetine and uses Lorazepam as needed. Try not take this medication daily or termite control servicer is at all possible as it can lead to dependence/addiction/tolerance, memory issues and may cause depression termite control servicer. Keep this medication out of the reach of other people. Do not drive or drink alcohol with this medication. Assessment & Plan (05/03/2022 3:00 PM KEY PERSON): Chronic and unchanged. Continue Lorazepam as needed. Assessment & Plan (01/03/2022 1:31 PM CDT): Stable, continue Lorazepam as needed Assessment & Plan (11/08/2020 5:25 PM CDT): Stable, continue Clonazepam Assessment & Plan (05/22/2020 8:01 PM CDT): Stable, continue Clonazepam as needed. Do not take this medication daily or nursing home is at all possible as it can lead to dependence/addiction/tolerance, memory issues and may cause depression termite control servicer. Keep this medication out of the reach [...] disease) Assessment & Plan (03/30/2024 12:53 PM KEY PERSON): Try to eat smaller more frequent meals. [...] weight. Assessment & Plan (01/13/2023 10:32 AM KEY PERSON): Try to eat smaller more frequent meals. [...] weight. Assessment & Plan (05/03/2022 2:59 PM KEY PERSON): Try to eat smaller more frequent meals. [...] weight. Assessment & Plan (05/03/2021 11:09 AM KEY PERSON): Try to eat smaller more frequent meals. [...] today. Assessment & Plan (03/30/2024 12:53 PM KEY PERSON): Continue to increase water intake. Limit use [...] weight. Assessment & Plan (01/13/2023 10:32 AM KEY PERSON): Continue to increase water intake. Limit use of NSAIDs including Ibuprofen, Aleve, Motrin, etc. Continue aerobic exercise and maintain a healthy weight. Assessment & Plan (09/10/2022 3:20 PM CDT): Continue to increase water intake. Limit use of NSAIDs including Ibuprofen, Aleve, Motrin, etc. Continue aerobic exercise and maintain a healthy weight. Assessment & Plan (05/03/2022 3:00 PM KEY PERSON): Continue to increase water intake. Limit use of NSAIDs including Ibuprofen, Aleve, Motrin, etc. Continue aerobic exercise and maintain a healthy weight. Assessment & Plan (01/03/2022 1:31 PM CDT): Continue to increase water intake. Limit use of NSAIDs including Ibuprofen, Aleve, Motrin, etc. Continue aerobic exercise and maintain a healthy weight. Assessment & Plan (05/03/2021 11:10 AM KEY PERSON): Continue to increase water intake. Limit use [...] (06/12/2018): Added automatically from request for surgery [id number] Encounter for weight management 06/05/2018 07/22/2024 Dyslipidemia [...] needed Assessment & Plan (04/10/2018 4:07 PM KEY PERSON): The patient has done very well overall [...] x-rays. Assessment & Plan (02/18/2018 11:58 AM KEY PERSON): Treatment options were discussed. The patient would [...] on calories. Most people should eat between 8175-9126 calories to lose weight. Decrease your carbohydrate [...] on calories. Most people should eat between 6145-6732 calories to lose weight. Decrease your carbohydrate [...] 07/22/2024 Assessment & Plan (04/15/2017 12:41 PM KEY PERSON): Will do ambulatory PT as she is [...] on file Legal Sex Female 11:38 PM KEY PERSON Gender Identity Female 08/02/2019 9:59 AM CDT [...] on file Medical Devices Implanted Type Area Aboriginal Education Teacher Device Identifier Shelf Expiration Date Model / Serial / Lot [employer] 6191-1-010 Simplex P Radiopaque Full Dose Cement Bone Sterile - [id number] Implanted:Qty: 1 on 07/15/2018 by Irving Mccauley MD at [facility] Bone Cement Left: Knee [employer] 07/31/2020 6191-1-010 / / [id number] [employer] 6191-1-010 Simplex P Radiopaque Full Dose Cement Bone Sterile - [id number] Implanted:Qty: 1 on 07/15/2018 by Irving Mccauley MD at [facility] Bone Cement Left: Knee [employer] 07/31/2020 6191-1-010 / / [id number] Baseplate Shoulder 15mm Length - [id number] Implanted:Qty: 1 on 12/10/2017 by Tayo Murray DO at [facility] Right: Shoulder [employer] Rhea 09/30/2022 GBP-0960-0 30-15 / / [id number] Screw 5.5mm 20mm Length Shoulder - [id number] Implanted:Qty: 1 on 12/10/2017 by Tayo Murray DO at [facility] Right: Shoulder [employer] Rhea 07/29/2022 SCW-0960-0 55-20 / / [id number] Screw And Cap 4.5mm 15mm Shoulder - [id number] Implanted:Qty: 2 on 12/10/2017 by Tayo Murray DO at [facility] Right: Shoulder [employer] Rhea 08/28/2020 SSC-0960-0 45-15 / / [id number] Screw And Cap 4.5mm 20mm Shoulder - [id number] Implanted:Qty: 1 on 12/10/2017 by Tayo Murray DO at [facility] Right: Shoulder [employer] Rhea 06/01/2022 SSC-0960-0 45-20 / / [id number] Screw And Cap 4.5mm 25mm Shoulder - [id number] Implanted:Qty: 1 on 12/10/2017 by Tayo Murray DO at [facility] Right: Shoulder [employer] Rhea 05/30/2022 SSC-0960-0 45-25 / / [id number] Glenosphere Shoulder 5mm Eccentric - [id number] Implanted:Qty: 1 on 12/10/2017 by Tayo Murray DO at [facility] Right: Shoulder [employer] Rhea 11/30/2021 GLS-0960-0 5E / / [id number] [employer] Rhea [id number] 1 Titan 16.5mm 12.1mm 90.4mm Press Fit 12 Spline Modular - [id number] Implanted:Qty: 1 on 12/10/2017 by Tayo Murray DO at [facility] Right: Shoulder [employer] Rhea 09/30/2021 STEM-0920- 025-11 / / [id number] Body Shoulder Small Reverse [id number] - [id number] Implanted:Qty: 1 on 12/10/2017 by Tayo Murray DO at [facility] Right: Shoulder [employer] Rhea 04/02/2022 BBS-0960-2 1SML / / [id number] Liner +0mm 9.6mm Standard 20mm 2.7mm 38.7mm Shoulder Humeral - [id number] - [id number] Implanted:Qty: 1 on 12/10/2017 by Tayo Murray DO at [facility] Right: Shoulder Integra [employer] Rhea 04/30/2021 LNR-0960-0 0S / LNR-0960-0 0S / [id number] [employer]/O rtho [id number] Shannan Ii [id number] Knee Oval Component Patellar Uhmwpe - [id number] Implanted:Qty: 1 on 07/15/2018 by Irving Mccauley MD at [facility] Left: Knee [employer]/ Ortho [id number] 04/25/2028 [id number] / / [id number] [employer]/O rtho [id number] Journey Knee Left 3 Baseplate Tibial - [id number] Implanted:Qty: 1 on 07/15/2018 by Irving Mccauley MD at [facility] Left: Knee [employer]/ Ortho [id number] 09/23/2027 [id number] / / [id number] [employer]Rich[employer]/O rtho [id number] Journey Ii Cruciate Retain Knee Left 4 Component Femoral Cocr - [id number] Implanted:Qty: 1 on 07/15/2018 by Irving Mccauley MD at [facility] Left: Knee [employer]/ Ortho [id number] 12/06/2027 [id number] / / [id number] [employer]/O rtho [id number] Journey Ii Left 3-4 Deep [facility] Insert Articular Xlpe - [id number] Implanted:Qty: 1 on 07/15/2018 by Irivng Mccauley MD at [facility] Left: Knee [employer]/ Ortho [id number] 03/09/2026 [id number] / / [id number] Explanted Type Area Aboriginal Education Teacher Device Identifier Shelf Expiration Date Model / Serial / Lot Integra [employer] Rhea [id number] 2mm 150mm Elbow Shoulder Guide Pin Orthopedic - [id number] Explanted:Qty: 2 on 12/10/2017 at [facility] Right: Shoulder [employer] [id number] / / Procedures Procedure Name Priority [...] bacterial lashonda. (.) Comment:Testing performed by : [facility], [address], [place]., [address] Organism CITROBACTER FREUNDII COMPLEX AAMIR ALAS Organism PLUS GROWTH OF CLINICALLY INSIGNIFICANT LASHONDA. AAMIR ALAS Urine, clean voided 09/17/2024 12:32 PM CDT 09/18/2024 12:16 AM CDT Narrative AAMIR ALAS - 09/19/2024 3:50 PM CDT Testing performed by [facility] Microbiology Laboratory ([phone]) Organism Antibiotic Method Susceptibility Citrobacter freundii complex [...] GENERAL OR DERABLES Final Result AAMIR ALAS [address] Department [place] [address] * eGFR (09/16/2024 3:06 PM CDT) eGFR [...] ORDERABLES Final Re sult Performing Organization Address [facility] Co de Phone Number AAMIR [address] [place] [address] * TSH (09/16/2024 3:06 PM CDT) Thyroid Stimulating Hormone 3.35 0.30 - 4.20 mcIUnit/mL Blood 09/16/2024 3:06 PM CDT 09/16/2024 10:39 PM CDT Tracy Hernández NP LAB BLOOD ORDERABLES Final Re sult Performing Organization Address [facility] de Phone Number [facility] [address] [facility] [place] [address] * Basic metabolic panel (09/16/2024 3:06 PM CDT) Sodium 139 135 - 145 mmol/L Potassium, pl 4.1 3.3 - 4.9 mmol/L [facility] Chloride 100 97 - 110 mmol/L [facility] CO2 26 22 - 32 mmol/L [facility] Anion gap 13 2 - 15 mmol/L [facility] BUN 24 6 - 25 mg/dL [facility] Creatinine 0.74 0.60 - 1.10 mg/dL [facility] Glucose 136 70 - 199 mg/dL [facility] Comment: Interpretive Data Fasting glucose >/= [...] ORDERABLES Final Re sult Performing Organization Address [facility] Co de Phone Number [facility] [address] [address] [place] [address] * eGFR (07/22/2024 10:12 AM [...] ORDERABLES Final Re sult Performing Organization Address City/[facility] Co de Phone Number [facility] [address] [address] [place] [address] * (ABNORMAL) Differential, auto (07/22/2024 10:12 AM [...] ORDERABLES Final Re sult Performing Organization Address City/[facility] Co de Phone Number AAMIR ALAS [address] [place] [address] * (ABNORMAL) Thyroid Function [place] (07/22/2024 10:12 AM CDT) TSH 20.00(H) 0.30 - 4.20 mcIUnit/mL Blood 07/22/2024 10:1 2 AM CDT 07/22/2024 9:19 PM CDT Tracy Hernández NP LAB BLOOD ORDERABLES Final Re sult Performing Organization Address [facility] de Phone Number AAMIR ALAS [address] [address] [facility] [place] [address] * (ABNORMAL) Urinalysis reflex to microscopic and [...] tendency for uric acid stone formation. Source: [facility] Geni Current Interpretive Data was last revised on [...] OR DERABLES Final Result Performing Organization Address [facility] Co de Phone Number AAMIR [address] [place] [address] * (ABNORMAL) CBC with auto differential (07/22/2024 10:12 AM CDT) WBC 7.83 3.80 - 9.90 K/cumm Hgb 13.2 11.9 - 15.5 g/dL [facility] Hct 42.3 35.6 - 45.5 % [facility] Plt 212 150 - 400 K/cumm [facility] MPV 10.6 9.1 - 12.3 fL [facility] RBC 4.01 3.90 - 5.20 M/cumm [facility] MCV 105.5(H) 81.3 - 96.4 fL [facility] MCH 32.9 27.1 - 33.3 pg [facility] MCHC 31.2(L) 32.3 - 35.7 g/dL [facility] RDW CV 13.8 11.1 - 14.9 % [facility] RDW SD 54.0(H) 35.7 - 48.1 fL [facility] NRBC abs 0.00 0.00 - 0.01 K/cumm [facility] Blood 07/22/2024 10:1 2 AM CDT 07/22/2024 9:19 PM CDT Tracy Hernández NP LAB BLOOD ORDERABLES Final Re sult Performing Organization Address City/[facility] Co de Phone Number AAMIR ALAS [address] [address] [place] [address] * (ABNORMAL) Urinalysis, microscopic only [...] LAB URINE ORDERABLES Final Re sult AAMIR [address] [address] Department [place] [address] * (ABNORMAL) Urine culture Urine, clean voided (07/22/2024 10:12 AM CDT) Report Final Report: Greater than or equal to 100,000 colonies/mL of Escherichia coli Plus growth of clinically insignificant bacterial lashonda. (.) Comment:Testing performed by : [facility], [address] [place]., [address] Organism ESCHERICHIA COLI [facility] Organism PLUS GROWTH OF CLINICALLY INSIGNIFICANT LASHONDA. [facility] Urine, clean voided 07/22/2024 10:12 AM CDT 07/23/2024 2:19 AM CDT Narrative [employer] [facility] [employer] - 07/25/2024 12:17 PM CDT Urine culture reflexed based upon urinalysis results. Testing performed by [facility] ([phone]) Organism Antibiotic Method Susceptibility Escherichia coli Ampicillin [...] GENERAL OR DERABLES Final Result AAMIR ALAS [address] [facility] [place] [address] * T4, free (07/22/2024 10:12 AM CDT) Free T4 1.09 0.90 - 1.70 ng/dL Blood 07/22/2024 10:1 2 AM CDT 07/22/2024 9:30 PM CDT Tracy Hernández NP LAB BLOOD ORDERABLES Final Re sult Performing Organization Address [facility] Co de Phone Number AAMIR ALAS [address] [address] [facility] [place] [address] * (ABNORMAL) Hemoglobin A1c (07/22/2024 10:12 AM CDT) Pathologist [facility] Hgb A1C 5.9(H) 4.0 - 5.6 % Estimated Average Glucose 123 mg/dL AAMIR ALAS Comment: The ADA recommends reporting an estimated Average Glucose (eAG) with all Hemoglobin A1c results using the equation derived from a study of 507 normal and diabetic adults. Minority populations were underrepresented and children were not included. (Diabetes Care 31:1926-0365, 2008). The eAG is not equivalent to a fasting glucose. Blood 07/22/2024 10:1 2 AM CDT 07/22/2024 9:19 PM CDT Tracy Hernández NP LAB BLOOD ORDERABLES Final Re sult Performing Organization Address [facility] Co de Phone Number AAMIR ALAS [address] [address] [place] [address] * (ABNORMAL) Lipid panel (07/22/2024 10:12 AM CDT) Pathologist [facility] Cholesterol 195 30 - 199 mg/dL [...] NP LAB BLOOD ORDERABLES Final Re sult [facility] [address] Department of Laboratories [place], [place] [id number] * Comprehensive metabolic panel (07/22/2024 10:12 AM [...] LAB BLOOD ORDERABLES Final Re sult [facility] [address] [address] Department [place] [address] * Dexa Axial Skeleton Bone Density 1 [...] Dual x-ray absorptiometry (DEXA) was performed using HoloThe Echo Nest system. GENERAL GUIDELINES: According to WHO guidelines, [...] Dual x-ray absorptiometry (DEXA) was performed using HoloThe Echo Nest system. GENERAL GUIDELINES: According to WHO guidelines, [...] to Health Maintenance Insurance MEDICARE COMMERCIAL GENERIC [place] MEDICARE COMMERCIAL GENERIC MEDICARE COMMERCIAL GENERIC Advance Directives For more information, please contact: [phone] Documents on File Type Date Recorded Patient Roller Setter Expl anation ADVANCE DIRECTIVE 08/20/2019 2:35 PM Power of Commercial Insulator-Medical ADVANCE DIRECTIVE 07/15/2018 11:14 AM ADVANCE DIRECTIVE [...] 3:25 PM 12/13/2017 4:26 PM Care Teams Dub Room Engineer Relationship Specialty Start Date End Date Tracy Hernández NP [facility] [facility] [address] [place] [address] PCP - General Family Medicine 07/22/24
--- OUTSIDE RECORDS SUMMARY | 2024-09-28 15:44 | XMS_ITS | Encounter Summary ---
Author Organization [facility] Healthcare Address [address] [place] [address] Care Team Providers Care Shank Faker Name Role Phone Matt Painting MD Primary Care Provider [phone] Tyesha Abarca DPT Unavailable Unavailable Yesi Cook DPT Unavailable Unavailable Renetta Pearl MA Unavailable [phone] Vernon Hernandez RN Unavailable [phone] Vernon Hernandez RN Unavailable [phone] Renetta Pearl MA Unavailable [phone] Shanna Oakes CASTING MACHINE ADJUSTER Primary Care Provider [phone] Tracy Hernández CASTING MACHINE ADJUSTER Primary Care Provider [phone] Encounter Details Date Type Department Care Team (Late st Contact Info) Description 11/28/2017 Documentation [facility] Case Management [address] [place] [address] Opal Marsh MSW Social History Tobacco Use Types Packs/Day Years Used Date Smoking Tobacco: Never Smokeless Tobacco: Never Alcohol Use Standard Drinks/Week Comments No 0 (1 standard drink = 0.6 oz pur e alcohol) Comments Unknown Sex and Gender Information Value Date Recorded Sex Assigned at Not on file Legal Sex Female 11:38 PM PROBATION OFFICER Gender Identity Female 08/02/2019 9:59 AM [...] on filedocumented in this encounter Care Teams Shank Faker Relationship Specialty Start Date End Date Matt Painting MD [address] [facility] [address], [place] [address] PCP - General 05/31/16 12/08/19 Shanna Oakes NP [address] [place] [address] [address] [place] [address] PCP - General Internal Medicine 12/09/19 07/21/24 Tracy Hernández NP [address] [facility] [address] [place] [address] PCP - General Family Medicine 07/22/24 Tyesha Abarca, KIMBERLY Physical Therapist Physical Therapy 04/30/17 02/08/18 Joyce, Yesi E., DPT Physical Therapist Physical Therapy 07/30/17 03/06/20 Renetta Pearl MA [address] [facility] [address] [place] [address] ACO Care Scaling Machine Operator 12/15/17 12/31/17 Vernon Hernandez RN [address] [place] [address] [address] [place], [place] [id number] Auto Body Repair Teacher 01/01/18 02/11/18 Vernon Hernandez RN [address] [place] [address] [address] [place], [place] [id number] CJR Outpatient Document Imaging Specialist 07/20/18 10/15/18 Renetta Pearl MA [address] [place] [address] ACO Care Scaling Machine Operator 07/21/18 07/21/18 documented as of this encounter
--- OUTSIDE RECORDS SUMMARY | 2024-09-28 15:44 | XMS_ITS | Encounter Summary ---
Author Organization [facility] Healthcare Address [address] [place] [address] Care Team Providers Care Lawn Sprinkler Installer Name Role Phone Matt Painting MD Primary Care Provider [phone] Yesi Cook DPT Unavailable Unavailable Vernon Hernandez RN Unavailable Renetta Pearl MA Unavailable Shanna Oakes SENIOR ARCHITECT Primary Care Provider Tracy Hernández SENIOR ARCHITECT Primary Care Provider [phone] Encounter Details Date Type Department Care Team (Late st Contact Info) Description 06/24/2018 Documentation [facility] Case Management [address] [place] [id number] Opal Marsh MSW Social History Tobacco Use Types Packs/Day Years Used Date Smoking Tobacco: Never Smokeless Tobacco: Never Alcohol Use Standard Drinks/Week Comments No 0 (1 standard drink = 0.6 oz pur e alcohol) Comments No Sex and Gender Information Value Date Recorded Sex Assigned at Not on file Legal Sex Female 11:38 PM INVASIVE PHYSICIAN Gender Identity Female 08/02/2019 9:59 AM CDT [...] Pt requested a [facility]. Secondary choice is the [facility] in [place]. Pt informed that the referral will be sent upon admission for placement if PT recs SNF. SW will followafter surgery. documented in this encounter Plan of Treatment Not on file documented as of this encounter Visit Diagnoses Not on filedocumented in this encounter Care Teams Lawn Sprinkler Installer Relationship Specialty Start Date End Date Matt Painting MD [address] [facility] [address], [place] [address] PCP - General 05/31/16 12/08/19 Shanna Oakes NP [address] [place] [address] [address] [place] [address] PCP - General Internal Medicine 12/09/19 07/21/24 Tracy Hernández NP [address] [facility] [address] [place] [address] PCP - General Family Medicine 07/22/24 Yesi Cook DPT Physical Therapist Physical Therapy 07/30/17 03/06/20 Vernon Hernandez RN [address] [place], [place] [address]Raf[address] [address] CJR Outpatient Instructor Private 07/20/18 10/15/18 Renetta Pearl, SONIA [address] [place] [address] ACO Care Rouge Sifter 07/21/18 07/21/18 documented as of this encounter
--- OUTSIDE RECORDS SUMMARY | 2024-09-28 15:44 | XMS_ITS | Encounter Summary ---
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 She is needing Rx sent as soon as possible. Patient needs PCP to take over Rx. Does message need to be routed? Yes-Action Needed documented in this encounter Plan of Treatment Not on file documented as of this encounter Visit Diagnoses Not on filedocumented in this encounter Care Teams Betting Clerks Relationship Specialty Start Date End Date Tracy Hernández NP [address] [facility] [address] [place] [address] PCP - General Family Medicine 07/22/24 documented as of this encounter
--- OUTSIDE RECORDS SUMMARY | 2024-09-28 15:44 | XMS_ITS | Encounter Summary ---
Author Organization [facility] Address [address] [place] [address] Phone Care Team Providers Care Transport Corps Officer Name Role Phone Matt Painting MD Primary Care Provider [phone] Tyesha Abarca DPT Unavailable Unavailable Yesi Cook DPT Unavailable Unavailable Renetta Pearl MA Unavailable [phone] Vernon Hernandez RN Unavailable [phone] Vernon Hernandez RN Unavailable [phone] Renetta Pearl MA Unavailable [phone] Shanna Oakes HRIS COORDINATOR Primary Care Provider [phone] Tracy Hernández HRIS COORDINATOR Primary Care Provider [phone] Encounter Details Date Type Department Care Team (Late st Contact Info) Description 04/15/2017 Orders Only [facility] ProviderChente MD [facility] [place] [address] Social History Tobacco Use Types Packs/Day Years Used Date Smoking Tobacco: Never Smokeless Tobacco: Never Alcohol Use Standard Drinks/Week Comments No 0 (1 standard drink = 0.6 oz pur e alcohol) Comments Unknown Sex and Gender Information Value Date Recorded Sex Assigned at Not on file Legal Sex Female 11:[address] JUDGE Gender Identity Female 08/02/2019 9:59 AM CDT Sexual Orientation Straight 06/03/2018 6: 51 PM CDT documented as of this encounter Plan of Treatment Not on file documented as of this encounter Procedures Procedure Name Priority Date/Time Associated Diagnosis Comments DISCHARGE LABORATORY CUMULATIVE REPORT 04/15/2017 12:[address] JUDGE documented in this encounter Results * DISCHARGE LABORATORY CUMULATIVE REPORT (04/15/2017 12:[address] JUDGE) Narrative 04/15/2017 12:[address] JUDGE Ordered by an unspecified provider. us Historical Provider LAB BLOOD ORDERABLES Arline l Result documented in this encounter Visit Diagnoses Not on filedocumented in this encounter Care Teams Transport Corps Officer Relationship Specialty Start Date End Date Matt Painting MD [address] [facility] [address] [place] [address] PCP - General 05/31/16 12/08/19 Shanna Oakes NP [address] [place] [address] [address] [place] [address] PCP - General Internal Medicine 12/09/19 07/21/24 Tracy Hernández NP [address] [facility] [address] [place] [address] PCP - General Family Medicine 07/22/24 Tyesha Abarca DPT Physical Therapist Physical Therapy 04/30/17 02/08/18 Yesi Cook DPT Physical Therapist Physical Therapy 07/30/17 03/06/20 Renetta Pearl MA [address] [place] [address] [address] [place] [address] ACO Care Manager Marketing Communications 12/15/17 12/31/17 Vernon Hernandez, OPHELIA [address] [place] [address] [address] [place] [address] Soft Tile Setter 01/01/18 02/11/18 Vernon Hernandez RN [address] [facility] [address] [place], [place] [id number] CJR Outpatient Gang Tailer 07/20/18 10/15/18 Renetta Pearl MA [address] [facility] [address] [place], [place] [id number] ACO Care Manager Marketing Communications 07/21/18 07/21/18 documented as of this encounter
--- OUTSIDE RECORDS SUMMARY | 2024-09-28 15:44 | XMS_ITS | Encounter Summary ---
Author Organization [facility] Healthcare Address [address] [place] [address] Care Team Providers Care Car Tester Name Role Phone Tracy Hernández NP Primary Care Provider [phone] Reason for Visit * Reason Onset Date Comments Dysuria 08/02/2024 IV Antibiotics 08/02/2024 Encounter Details Date Type Department Care Team (Late st Contact Info) Description 08/02/2024 Nurse Triage [facility] Medical Group Primary Care at [address] [address] Tracy Hernández NP [address] [place] [address] [address] [place] [address] Social History Tobacco Use Types [...] on file Legal Sex Female 11:38 PM SEAM RUBBING MACHINE OPERATOR Gender Identity Female 08/02/2019 9:59 [...] AM CDT Medical Question/Miscellaneous Caller???s Concern: Yeimy, expressive art therapist with the [facility], calling in to get further clarification on instructions for patient to go to the ED. Warm transferred. Does message need to be routed? No Reason for Warm Transfer: Symptoms: Patient has Red flag symptoms, painter and body mechanic apprentice evaluated patient and directed patient to call [...] Tract Infection on Antibiotic Follow-up Call - [id number] * Telephone Encounter - Odette Zimmer RN [...] on filedocumented in this encounter Care Teams Car Tester Relationship Specialty Start Date End Date Tracy Hernández NP [address] [address] PCP - General Family Medicine 07/22/24 documented as of this encounter
--- OUTSIDE RECORDS SUMMARY | 2024-09-28 15:44 | XMS_ITS | Encounter Summary ---
Author Organization [facility] Healthcare Address [address] [place] [address] Care Team Providers Care Material Worker Name Role Phone Shanna Oakes NP Primary Care Provider [phone] Tracy Hernández SHOP HELPER Primary Care Provider [phone] Encounter Details Date Type Department Care Team (Late st Contact Info) Description 12/20/2020 Telephone [facility] - Interventional Radiology [address] [place] [address] Juanis Mejia RN Social History [...] on file Legal Sex Female 11:38 PM APPEALS ANALYST Gender Identity Female 08/02/2019 9:59 AM CDT Sexual Orientation Straight 06/03/2018 6: 51 PM CDT documented as of this encounter Plan of Treatment Not on file documented as of this encounter Visit Diagnoses Not on filedocumented in this encounter Care Teams Material Worker Relationship Specialty Start Date End Date Shanna Oakes NP PCP - General Internal Medicine 12/09/19 07/21/24 Tracy Hernández NP [address] [address] PCP - General Family Medicine 07/22/24 documented as of this encounter
--- OUTSIDE RECORDS SUMMARY | 2024-09-28 15:44 | XMS_ITS | Encounter Summary ---
Author Organization [facility] Address [address] [place] [address] Phone Care Team Providers Care Balance And Hairspring Assembler Name Role Phone Matt Painting MD Primary Care Provider [phone] Tyesha Abarca DPT Unavailable Unavailable Yesi Cook DPT Unavailable Unavailable Renetta Pearl MA Unavailable [phone] Vernon Hernandez RN Unavailable [phone] Vernon Hernandez RN Unavailable [phone] Renetta Pearl MA Unavailable [phone] Shanna Oakes CONSERVATION WORKER Primary Care Provider [phone] Tracy Hernández CONSERVATION WORKER Primary Care Provider [phone] Encounter Details Date Type Department Care Team (Late st Contact Info) Description 06/12/2017 Orders Only [facility] ProviderChente MD [facility] [place] [address] Social History Tobacco Use Types Packs/Day Years Used Date Smoking Tobacco: Never Smokeless Tobacco: Never Alcohol Use Standard Drinks/Week Comments No 0 (1 standard drink = 0.6 oz pur e alcohol) Comments Unknown Sex and Gender Information Value Date Recorded Sex Assigned at Not on file Legal Sex Female 11:38 PM CLASSIFIER OPERATOR Gender Identity Female 08/02/2019 9:59 AM [...] on filedocumented in this encounter Care Teams Balance And Hairspring Assembler Relationship Specialty Start Date End Date Matt Painting MD [address] [facility] [address] [place] [address] PCP - General 05/31/16 12/08/19 Shanna Oakes NP [address] [facility] [address] [place] [address] PCP - General Internal Medicine 12/09/19 07/21/24 Tracy Hernández NP [address] [facility] [address] [place] [address] PCP - General Family Medicine 07/22/24 Tyesha Abarca DPT Physical Therapist Physical Therapy 04/30/17 02/08/18 Yesi Cook DPT Physical Therapist Physical Therapy 07/30/17 03/06/20 Renetta Pearl MA [address] [facility] [address] [place] [address] ACO Care Hospital Orderly 12/15/17 12/31/17 Vernon Hernandez, OPHELIA [address] [facility] [address] [place] [address] Test Tube Maker 01/01/18 02/11/18 Vernon Hernandez RN [address] [facility] [address] [place] [address] CJR Outpatient Wash Tub Machine Operator 07/20/18 10/15/18 Renetta Pearl MA [address] [facility] [address] [facility] [address] [place], [place] [id number] A[facility] Care [facility] Orderly 07/21/18 07/21/18 documented as of this encounter
--- OUTSIDE RECORDS SUMMARY | 2024-09-28 15:44 | XMS_ITS | Clinical Summary ---
Author Organization [facility] Address [address] [place] [address] Care Team Providers Care Director Of Content Marketing Name Role Phone Tracy Hernández NP Primary Care Provider [phone] Allergies Active Allergy Reactions Criticality Noted Date [...] 1 tablet (100 mcg total) by mouth student outreach coordinator before breakfast 90 tablet 07/24/19 25 Active [...] zolpidem. Assessment & Plan (03/30/2024 12:53 PM SOLE RUFFER): Stable, continue Zolpidem Assessment & Plan (12/29/2023 1:26 PM CDT): Worse. Will switch to an ER Zolpidem. Dermatochalasis of both upper eyelids 10/15/2022 Assessment & Plan (10/16/2023 4:47 PM CDT): Pt not bothered, monitor Assessment & Plan (10/15/2022 12:55 PM CDT): Not v/s, monitor Atherosclerosis of aorta 05/09/2022 Overview (05/09/2022): 05/09/21- xray Assessment & Plan (03/30/2024 12:52 PM SOLE RUFFER): Stable, continue aspirin and Atorvastatin Assessment & Plan (09/16/2023 10:46 AM CDT): Stable, continue Atorvastatin and aspirin. Assessment & Plan (01/13/2023 10:31 AM SOLE RUFFER): Stable, continue aspirin and Atorvastatin Encounter for Medicare annual wellness exam 05/02 Assessment & Plan (03/30/2024 12:49 PM SOLE RUFFER): Please see below for a list of your medical conditions and recommendations. Assessment & Plan (01/13/2023 10:30 AM SOLE RUFFER): Please see below for a list of [...] 020 Assessment & Plan (03/30/2024 12:53 PM SOLE RUFFER): Stable, continue aspirin and Atorvastatin Assessment & Plan (09/16/2023 10:47 AM CDT): Stable, continue Atorvastatin and aspirin Assessment & Plan (01/13/2023 10:32 AM SOLE RUFFER): Stable, continue aspirin and Atorvastatin Assessment & Plan (01/03/2022 1:32 PM CDT): Stable, continue aspirin and Atorvastatin. Assessment & Plan (05/03/2021 11:10 AM SOLE RUFFER): Stable, continue Atorvastatin and aspirin Assessment & [...] UTI Assessment & Plan (04/15/2017 12:43 PM SOLE RUFFER): Having increased urinary frequency but no pain, feels similar to UTIs in the past. UA today with just trace blood, negative for leuks and nitrites Advised to keep hydrated and will send UA for culture BMI 28.0-28.9,adult 04/15/2017 Assessment & Plan (10/08/2017 11:47 AM CDT): Try to cut back on calories. Most people should eat between 8161-4234 calories to lose weight. Decrease your carbohydrate [...] help. Assessment & Plan (04/15/2017 11:14 AM SOLE RUFFER): BMI Follow-up includes: nutrition counseling and exercise [...] management. Assessment & Plan (05/03/2021 11:10 AM SOLE RUFFER): Stable, continue Gabapentin and Duloxetine Assessment & Plan (12/19/2019 7:35 PM CDT): Stable, continue duloxetine Assessment & Plan (06/14/2019 8:10 AM CDT): Requires chronic duloxetine and gabapentin therapy. Does see pain management at times. Assessment & Plan (04/15/2017 12:40 PM SOLE RUFFER): Improved and using lidocaine patches which help. Suspect this is more from bulging disc than it is from UTI and patient agrees. Major depression single episode, in partial amanda ssion 08/28/2016 Assessment & Plan (03/30/2024 12:53 PM SOLE RUFFER): Stable, continue Duloxetine Assessment & Plan (12/29/2023 1:26 PM CDT): Stable, continue Duloxetine Assessment & Plan (01/13/2023 10:33 AM SOLE RUFFER): Stable, continue Duloxetine Assessment & Plan (09/10/2022 3:17 PM CDT): Improved. Continue Duloxetine Assessment & Plan (05/03/2022 2:59 PM SOLE RUFFER): Stable, continue Duloxetine Assessment & Plan (01/03/2022 1:30 PM CDT): Intermittent. Continue Duloxetine. Assessment & Plan (05/03/2021 11:09 AM SOLE RUFFER): Chronic and unchanged. Continue Duloxetine Assessment & [...] Duloxetine Assessment & Plan (02/16/2018 1:25 PM SOLE RUFFER): Doing well with the clonazepam and duloxetine Assessment & Plan (04/15/2017 12:42 PM SOLE RUFFER): Still teary in the room over the [...] disease Assessment & Plan (03/30/2024 12:49 PM SOLE RUFFER): The blood pressure is adequately controlled. Ideally, [...] way. Assessment & Plan (01/13/2023 10:30 AM SOLE RUFFER): The blood pressure is adequately controlled. Ideally, [...] way. Assessment & Plan (05/03/2022 2:57 PM SOLE RUFFER): The blood pressure is adequately controlled. Ideally, [...] way. Assessment & Plan (05/03/2021 11:08 AM SOLE RUFFER): The blood pressure is adequately controlled. Ideally, [...] Future Assessment & Plan (03/30/2024 12:50 PM SOLE RUFFER): Stable, continue levothyroxine Assessment & Plan (12/29/2023 1:24 PM CDT): Stable, continue levothyroxine Assessment & Plan (09/16/2023 10:46 AM CDT): Stable? Will recheck today. Assessment & Plan (01/13/2023 10:31 AM SOLE RUFFER): Stable, continue levothyroxine. Assessment & Plan (09/10/2022 3:15 PM CDT): Stable? Will recheck today. Assessment & Plan (05/03/2022 2:57 PM SOLE RUFFER): Stable? Will recheck today. Assessment & Plan (01/03/2022 1:24 PM CDT): Stable, continue levothyroxine Assessment & Plan (05/03/2021 11:08 AM SOLE RUFFER): Stable? Continue levothyroxine. Assessment & Plan (11/08/2020 [...] are stable, reviewed previous lipid levels in [facility]. Continue statin therapy. Lipitor (atorvastatin) Order for lipid panel was given today to be obtained. Pt voiced understanding of lab drawn and continuation of current medication regimen. Assessment & Plan (03/30/2024 12:49 PM SOLE RUFFER): Continue low fat eating- limit fried foods, [...] prescribed. Assessment & Plan (01/13/2023 10:30 AM SOLE RUFFER): Continue low fat eating- limit fried foods, [...] prescribed. Assessment & Plan (05/03/2022 2:58 PM SOLE RUFFER): Continue low fat eating- limit fried foods, [...] day. Assessment & Plan (05/03/2021 11:09 AM SOLE RUFFER): Continue low fat eating- limit fried foods, [...] attacks Assessment & Plan (03/30/2024 1:37 PM SOLE RUFFER): Not controlled, continue Lorazepam as needed Assessment & Plan (01/13/2023 10:32 AM SOLE RUFFER): Stable, continue Duloxetine and Lorazepam as needed. Assessment & Plan (09/10/2022 3:18 PM CDT): Improved. Continue Duloxetine and uses Lorazepam as needed. Try not take this medication daily or fpc is at all possible as it can lead to dependence/addiction/tolerance, memory issues and may cause depression long term care administrator. Keep this medication out of the reach of other people. Do not drive or drink alcohol with this medication. Assessment & Plan (05/03/2022 3:00 PM SOLE RUFFER): Chronic and unchanged. Continue Lorazepam as needed. Assessment & Plan (01/03/2022 1:31 PM CDT): Stable, continue Lorazepam as needed Assessment & Plan (11/08/2020 5:25 PM CDT): Stable, continue Clonazepam Assessment & Plan (05/22/2020 8:01 PM CDT): Stable, continue Clonazepam as needed. Do not take this medication daily or long term care administrator is at all possible as it can lead to dependence/addiction/tolerance, memory issues and may cause depression long term care administrator. Keep this medication out of the reach [...] disease) Assessment & Plan (03/30/2024 12:53 PM SOLE RUFFER): Try to eat smaller more frequent meals. [...] weight. Assessment & Plan (01/13/2023 10:32 AM SOLE RUFFER): Try to eat smaller more frequent meals. [...] weight. Assessment & Plan (05/03/2022 2:59 PM SOLE RUFFER): Try to eat smaller more frequent meals. [...] weight. Assessment & Plan (05/03/2021 11:09 AM SOLE RUFFER): Try to eat smaller more frequent meals. [...] today. Assessment & Plan (03/30/2024 12:53 PM SOLE RUFFER): Continue to increase water intake. Limit use [...] weight. Assessment & Plan (01/13/2023 10:32 AM SOLE RUFFER): Continue to increase water intake. Limit use of NSAIDs including Ibuprofen, Aleve, Motrin, etc. Continue aerobic exercise and maintain a healthy weight. Assessment & Plan (09/10/2022 3:20 PM CDT): Continue to increase water intake. Limit use of NSAIDs including Ibuprofen, Aleve, Motrin, etc. Continue aerobic exercise and maintain a healthy weight. Assessment & Plan (05/03/2022 3:00 PM SOLE RUFFER): Continue to increase water intake. Limit use of NSAIDs including Ibuprofen, Aleve, Motrin, etc. Continue aerobic exercise and maintain a healthy weight. Assessment & Plan (01/03/2022 1:31 PM CDT): Continue to increase water intake. Limit use of NSAIDs including Ibuprofen, Aleve, Motrin, etc. Continue aerobic exercise and maintain a healthy weight. Assessment & Plan (05/03/2021 11:10 AM SOLE RUFFER): Continue to increase water intake. Limit use [...] (06/12/2018): Added automatically from request for surgery [id number] Encounter for weight management 06/05/2018 07/22/2024 Dyslipidemia [...] needed Assessment & Plan (04/10/2018 4:07 PM SOLE RUFFER): The patient has done very well overall [...] x-rays. Assessment & Plan (02/18/2018 11:58 AM SOLE RUFFER): Treatment options were discussed. The patient would [...] on calories. Most people should eat between 2506-6437 calories to lose weight. Decrease your carbohydrate [...] on calories. Most people should eat between 3989-3880 calories to lose weight. Decrease your carbohydrate [...] 07/22/2024 Assessment & Plan (04/15/2017 12:41 PM SOLE RUFFER): Will do ambulatory PT as she is [...] Department Care Team Description 09/20/2024 Orders Only [facility] Primary Care at [address] [phone] Tracy Hernández NP 09/20/2024 Orders Only [facility] [address] 6th [address], [address] [facility] [place] [address] Jackie Mckeon, OD Encounter for observation for other suspected diseases and conditions ruled out (Primary Dx) 09/17/2024 12:32 PM CDT - 09/17/2024 11:59 PM CDT Hospital Encounter [id number] [place] [address] Frequent UTI Discharge Disposition: Discharge to home or self care 09/17/2024 12:30 PM CDT Lab [facility] Outpatient Lab at [address] [phone] 09/17/2024 Results Follow-Up [facility] Primary Care at [address] [phone] Tracy Hernández, COMPUTER PROCESSING SCHEDULER Basic metabolic panel, TSH, eGFR, Urine culture Urine, clean voided 09/16/2024 3:06 PM CDT - 09/16/2024 11:59 PM CDT Hospital Encounter [address] [place] [address] Stage 3a chronic kidney disease (HCC); Acquired hypothyroidism Discharge Disposition: Discharge to home or self care 09/16/2024 3:00 PM CDT Lab [facility] Outpatient Lab at [address] [phone] 09/16/2024 2:00 PM CDT Office Visit [facility] Primary Care at [address] [phone] Tracy Hernández NP Stage 3a chronic kidney disease (HCC) (Primary Dx); Frequent UTI; Acquired hypothyroidism 08/30/2024 Nurse Triage [facility] Primary Care at [address] [phone] Tracy Hernández NP 08/30/2024 Orders Only [facility] Primary Care at [address] [phone] Tracy Hernández NP 08/30/2024 Telephone [facility] Primary Care at [address] [phone] Tracy Hernández NP Med Refill 08/30/2024 Telephone [facility] [address] [address] Shanna Oakes NP 08/27/2024 Telephone [facility] [address] [place] [address] Manuela Shah NP 08/12/2024 Telephone [facility] Primary Care at [address] [phone] Tracy Hernández NP Symptom Based Call; Medical Question/Miscellaneou s 08/09/2024 Orders Only [facility] Primary Care at [address] [phone] Tracy Hernández NP 08/02/2024 Nurse Triage [facility] Primary Care at [address] [phone] Tracy Hernández NP 07/23/2024 Results Follow-Up [facility] Primary Care at [address] [phone] Tracy Hernández NP Comprehensive metabolic panel, Thyroid Function Marathon, Hemoglobin A1c, Additional followed-up results: 8 07/22/2024 10:15 AM CDT Lab [facility] Outpatient Lab at [address] [phone] 07/22/2024 10:12 AM CDT - 07/22/2024 11:59 PM CDT Hospital Encounter [address] [address] Hypertensive renal disease; Acquired hypothyroidism; Elevated glucose; Hypercholesterolemia Discharge Disposition: Discharge to home or self care 07/22/2024 9:30 AM CDT Office Visit [facility] Primary Care at [address] [phone] Tracy Hernández NP Acquired hypothyroidism (Primary Dx); Hypertensive renal disease; Hypercholesterolemia; Elevated glucose; Gastroesophageal reflux disease without esophagitis; Stage 3a chronic kidney disease (HCC); Generalized anxiety disorder with panic attacks; Major depression single episode, in partial remission; Primary insomnia 07/22/[address] [address] Shanna Oakes NP Medical Question/Miscellaneou s 07/05/[address] [address] Shanna Oakes NP Referral Request [...] on file Legal Sex Female 11:38 PM SOLE RUFFER Gender Identity Female 08/02/2019 9:59 AM CDT [...] 12/22/2014, 05/01 Medical Devices Implanted Type Area Cad Manager Device Identifier Shelf Expiration Date Model / Serial / Lot [employer] 6191-1-010 Simplex P Radiopaque Full Dose Cement Bone Sterile - [id number] Implanted:Qty: 1 on 07/15/2018 by Irving Mccauley MD at [facility] Bone Cement Left: Knee [employer] 07/31/2020 6191-1-010 / / [id number] [employer] 6191-1-010 Simplex P Radiopaque Full Dose Cement Bone Sterile - [id number] Implanted:Qty: 1 on 07/15/2018 by Irving Mccauley MD at [facility] Bone Cement Left: Knee [employer] 07/31/2020 6191-1-010 / / [id number] Baseplate Shoulder 15mm Length - [id number] Implanted:Qty: 1 on 12/10/2017 by Tayo Murray DO at [facility] Right: Shoulder [employer]hea 09/30/2022 GBP-0960-0 30-15 / / [id number] Screw 5.5mm 20mm Length Shoulder - [id number] Implanted:Qty: 1 on 12/10/2017 by Tayo Murray DO at [facility] Right: Shoulder [employer] Rhea 07/29/2022 SCW-0960-0 55-20 / / [id number] Screw And Cap 4.5mm 15mm Shoulder - [id number] Implanted:Qty: 2 on 12/10/2017 by Tayo Murray DO at [facility] Right: Shoulder [employer] Rhea 08/28/2020 SSC-0960-0 45-15 / / [id number] Screw And Cap 4.5mm 20mm Shoulder - [id number] Implanted:Qty: 1 on 12/10/2017 by Tayo Murray DO at [facility] Right: Shoulder [employer] 06/01/2022 SSC-0960-0 45-20 / / [id number] Screw And Cap 4.5mm 25mm Shoulder - [id number] Implanted:Qty: 1 on 12/10/2017 by Tayo Murray DO at [facility] Right: Shoulder [employer] 05/30/2022 SSC-0960-0 45-25 / / [id number] Glenosphere Shoulder 5mm Eccentric - [id number] Implanted:Qty: 1 on 12/10/2017 by Tayo Murray DO at [facility] Right: Shoulder [employer] 11/30/2021 GLS-0960-0 5E / / [id number] [employer] Bepa-5905-924-1 1 Titan 16.5mm 12.1mm 90.4mm Press Fit 12 Spline Modular - [id number] Implanted:Qty: 1 on 12/10/2017 by Tayo Murray DO at [facility] Right: Shoulder [employer] 09/30/2021 STEM-0920- 025-11 / / [id number] Body Shoulder Small Reverse Obv-7019-60mlx - [id number] Implanted:Qty: 1 on 12/10/2017 by Tayo Murray DO at [facility] Right: Shoulder [employer] 04/02/2022 BBS-0960-2 1SML / / [id number] Liner +0mm 9.6mm Standard 20mm 2.7mm 38.7mm Shoulder Humeral - [id number]-[id number] - [id number] Implanted:Qty: 1 on 12/10/2017 by Tayo Murray DO at [facility] Right: Shoulder [employer] 04/30/2021 LNR-0960-0 0S / LNR-0960-0 0S / [id number] [employer]/O rtho [id number] Shannan Ii [id number] Knee Oval Component Patellar Uhmwpe - [id number] Implanted:Qty: 1 on 07/15/2018 by Irving Mccauley MD at [facility] Left: Knee [employer]/ Ortho [id number] 04/25/2028 [id number] / / [id number] [employer]/O rtho [id number] Journey Knee Left 3 Baseplate Tibial - [id number] Implanted:Qty: 1 on 07/15/2018 by Irving Mccauley MD at [facility] Left: Knee [employer]/ Ortho [id number] 09/23/2027 [id number] / / [id number] [employer]/O rtho [id number] Journey Ii Cruciate Retain Knee Left 4 Component Femoral Cocr - [id number] Implanted:Qty: 1 on 07/15/2018 by Irving Mccauley MD at [facility] Left: Knee [employer]/ Ortho [id number] 12/06/2027 [id number] / / [id number] [employer]/O rtho [id number] Journey Ii Left 3-4 Deep [facility] Insert Articular Xlpe - [id number] Implanted:Qty: 1 on 07/15/2018 by Irving Mccauley MD at [facility] Left: Knee [employer]/ Ortho [id number] 03/09/2026 [id number] / / [id number] Explanted Type Area Cad Manager Device Identifier Shelf Expiration Date Model / Serial / Lot [employer]ol[employer] Cognitive Code [id number] 2mm 150mm Elbow Shoulder Guide Pin Orthopedic - [id number] Explanted:Qty: 2 on 12/10/2017 at [facility] Right: Shoulder [employer] Cognitive Code [id number] / / Procedures Procedure Name Priority [...] bacterial lashonda. (.) Comment:Testing performed by : [facility], [address] [place]., [address] Organism CITROBACTER FREUNDII COMPLEX [facility] Organism PLUS GROWTH OF CLINICALLY INSIGNIFICANT LASHONDA. [facility] Urine, clean voided 09/17/2024 12:32 PM CDT 09/18/2024 12:16 AM CDT Narrative [facility] - 09/19/2024 3:50 PM CDT Testing performed by [facility] Microbiology Laboratory ([phone]) Organism Antibiotic Method Susceptibility Citrobacter freundii complex [...] OR DERABLES Final Result Performing Organization Address City/[facility]/ZIP Co de Phone Number AAMIR ALAS [address] [address] [place] [address] * eGFR (09/16/2024 3:06 PM CDT) eGFR [...] ORDERABLES Final Re sult Performing Organization Address City/[facility]/ZIP Co de Phone Number AAMIR ALAS [address] [address] [place] [address] * TSH (09/16/2024 3:06 PM CDT) Thyroid Stimulating Hormone 3.35 0.30 - 4.20 mcIUnit/mL Blood 09/16/2024 3:06 PM CDT 09/16/2024 10:39 PM CDT Tracy Hernández NP LAB BLOOD ORDERABLES Final Re sult Performing Organization Address City/[facility] [place] [address] [address] [place] [address] * Basic metabolic panel (09/16/2024 3:06 PM CDT) Pathologist [facility] Sodium 139 135 - 145 mmol/L Potassium, [...] ORDERABLES Final Re sult Performing Organization Address City/[facility]/ZIP Co de Phone Number [facility] [address] [address] [place] [address] * eGFR (07/22/2024 10:12 AM CDT) Pathologist [facility] [place] eGFR 75 >=60 mL/min/1. 73 m2 Comment: [...] LAB BLOOD ORDERABLES Final Re sult [facility] [address] [address] [place] [address] * (ABNORMAL) Differential, auto (07/22/2024 10:12 AM CDT) Pathologist [facility] Neutrophil abs 4.47 1.50 - 6.50 K/cumm Imm gran abs 0.03 0.00 - 0.10 K/cumm [facility] Lymphocyte abs 2.26 0.80 - 3.30 K/cumm [facility] Monocyte abs 0.86(H) 0.20 - 0.80 K/cumm [facility] Eosinophil abs 0.16 0.00 - 0.50 K/cumm [facility] Basophil abs 0.05 0.00 - 0.10 K/cumm [facility] Neutrophil pct 57.1 % [facility] Comment: Interpretive Data Percent cell count reference [...] revised on 2017. Basophil pct 0.6 % [facility] Comment: Interpretive Data Percent cell count reference ranges are not reported, since discordance with absolute values may lead to misinterpretation of CBC data. Current Interpretive Data was last revised on 2017. Blood 07/22/2024 10:1 2 AM CDT 07/22/2024 9:19 PM CDT us Tracy Hernández NP LAB BLOOD ORDERABLES Final Re sult [facility] [address] [address] [place] [address] * (ABNORMAL) Thyroid Function Marathon (07/22/2024 10:12 AM CDT) TSH 20.00(H) 0.30 - 4.20 mcIUnit/mL Blood 07/22/2024 10:1 2 AM CDT 07/22/2024 9:19 PM CDT us Tracy Hernández NP LAB BLOOD ORDERABLES Final Re sult AAMIR ALAS [address] [address] [place] [address] * (ABNORMAL) Urinalysis reflex to microscopic and [...] tendency for uric acid stone formation. Source: [facility] Current Interpretive Data was last revised on [...] GENERAL OR DERABLES Final Result AAMIR ALAS [address] [address] [place] [address] * (ABNORMAL) CBC with auto differential (07/22/2024 [...] NRBC abs 0.00 0.00 - 0.01 K/cumm [facility] Blood 07/22/2024 10:1 2 AM CDT 07/22/2024 9:19 PM CDT Tracy Hernández NP LAB BLOOD ORDERABLES Final Re sult Performing Organization Address [facility] de Phone Number AAMIR ALAS [address] [address] [place] [address] * (ABNORMAL) Urinalysis, microscopic only (07/22/2024 10:12 AM CDT) WBC, ur >50(A) 0 - 5 /HPF RBC, ur 21-50(A) 0 - 2 /HPF [facility] Bacteria, ur 4+(A) [facility] Amorphous crystals, ur 1+(A) [facility] Culture Reflex Comment Reflex to urine culture will be performed. [facility] Urine, clean voided 07/22/2024 10:12 AM CDT 07/22/2024 9:19 PM CDT Tracy Hernández NP LAB URINE ORDERABLES Final Re sult Performing Organization Address [facility] Co de Phone Number AAMIR ALAS [address] [address] Department [place], [place] [id number] * (ABNORMAL) Urine culture Urine, clean voided (07/22/2024 10:12 AM CDT) Report Final Report: Greater than or equal to 100,000 colonies/mL of Escherichia coli Plus growth of clinically insignificant bacterial lashonda. (.) Comment:Testing performed by : [facility], [address] [place]., [address] Organism ESCHERICHIA COLI [facility] Organism PLUS GROWTH OF CLINICALLY INSIGNIFICANT LASHONDA. [facility] Urine, clean voided 07/22/2024 10:12 AM CDT 07/23/2024 2:19 AM CDT Narrative [facility] - 07/25/2024 12:17 PM CDT Urine culture reflexed based upon urinalysis results. Testing performed by [facility] Microbiology Laboratory ([phone]) Organism Antibiotic Method Susceptibility Escherichia coli Ampicillin [...] OR DERABLES Final Result Performing Organization Address City/[facility]/ZIP Co de Phone Number AAMIR ALAS [address] [address] [place] [address] * T4, free (07/22/2024 10:12 AM CDT) Free T4 1.09 0.90 - 1.70 ng/dL Blood 07/22/2024 10:1 2 AM CDT 07/22/2024 9:30 PM CDT Tracy Hernández NP LAB BLOOD ORDERABLES Final Re sult Performing Organization Address City/[facility]/ZIP Co de Phone Number AAMIR ALAS [address] [address] [place] [address] * (ABNORMAL) Hemoglobin A1c (07/22/2024 10:12 AM CDT) Hgb A1C 5.9(H) 4.0 - 5.6 % Estimated Average Glucose 123 mg/dL AAMIR ALAS Comment: The ADA recommends reporting an estimated Average Glucose (eAG) with all Hemoglobin A1c results using the equation derived from a study of 507 normal and diabetic adults. Minority populations were underrepresented and children were not included. (Diabetes Care 31:8029-7704, 2008). The eAG is not equivalent to a fasting glucose. Blood 07/22/2024 10:1 2 AM CDT 07/22/2024 9:19 PM CDT Tracy Hernández NP LAB BLOOD ORDERABLES Final Re sult AAMIR [address] Department [place] [address] * (ABNORMAL) Lipid panel (07/22/2024 10:12 AM [...] LAB BLOOD ORDERABLES Final Re sult CERNER [address] [place] [address] * Comprehensive metabolic panel (07/22/2024 [...] BLOOD ORDERABLES Final Re sult AAMIR ALAS [address] [place] [address] * Dexa Axial Skeleton Bone Density 1 [...] Dual x-ray absorptiometry (DEXA) was performed using [employer] system. GENERAL GUIDELINES: According to WHO guidelines, [...] Dual x-ray absorptiometry (DEXA) was performed using [employer] system. GENERAL GUIDELINES: According to WHO guidelines, [...] Health Maintenance Insurance MEDICARE COMMERCIAL GENERIC [facility] MEDICARE COMMERCIAL GENERIC MEDICARE COMMERCIAL GENERIC Advance Directives For more information, please contact: [phone] Documents on File Type Date Recorded Patient Oyster Culler Expl anation ADVANCE DIRECTIVE 08/20/2019 2:35 PM Power of Flat Optical Element Maker-Medical ADVANCE DIRECTIVE 07/15/2018 11:14 AM ADVANCE DIRECTIVE [...] 3:25 PM 12/13/2017 4:26 PM Care Teams Director Of Content Marketing Relationship Specialty Start Date End Date Tracy Hernández NP [address] [address] PCP - General Family Medicine 07/22/24
--- OUTSIDE RECORDS SUMMARY | 2024-09-28 15:44 | XMS_ITS | Encounter Summary ---
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
[2024-09-28 16:44] LABS: Add Urine Microscopic? YES; Appearance Urine Clear (Clear); Glucose Urine UA Negative (Negative); Leukocyte Esterase Ur Negative LEU/UL (Negative); Nitrate Urine Negative (Negative); Specific Grav Ur 1.010 (1.001-1.035)
== END 2024-09-28 17:33 | disposition home or self-care (01) ==
PROVIDERS: Physician Assistant; Emergency Provider Emergency Medicine; PCP Nurse Practitioner Family
DX: M54.50 Low back pain, unspecified (principal); E03.9 Hypothyroidism, unspecified; E78.5 Hyperlipidemia, unspecified; I10 Essential (primary) hypertension
CPT/HCPCS: 81001; 99283

== ENCOUNTER 2024-10-14 13:46 | Emergency (ER) | payer MEDICARE, MEDICAID, SELFPAY ==
--- NOTE | ~2024-10-14 | US_ITS ---
EXAMINATION: US venous doppler LE RT DATE: 10/14/2024 14:45 INDICATION: Pain and swelling TECHNIQUE: Grayscale ultrasound images without and with compression and Doppler ultrasound images of the right lower extremity veins were obtained. COMPARISON: None. FINDINGS: The visualized portions of right common femoral vein, profunda (deep) femoral vein, femoral vein, pop liteal vein, peroneal veins, posterior tibial veins, and greater saphenous vein outflow are patent. IMPRESSION: 1. No deep venous thrombosis. Reviewed, dictated and finalized at location A.
--- NOTE | ~2024-10-14 | XR_ITS ---
Exam: X-ray right knee 4 views Comparisons: None. TECHNIQUE: 4 images of the right knee were obtained. CLINICAL HISTORY: Right knee pain and swelling. FINDINGS: Bone mineralization is within normal limits. Small suprapatellar effusion. Soft tissue swelling about the right knee. No fracture. No dislocation. Mild joint space narrowing in the patellofemoral joint. IMPRESSION: 1. No acute bony abnormality identified. If symptoms persist or worsen, consider a short-term follow-up study or additional imaging for furthe r assessment. Reviewed, dictated and finalized at location A. IMPRESSION: 1. No acute bony abnormality identified. If symptoms persist or worsen, consider a short-term follow-up study or additio nal imaging for further assessment.
--- OUTSIDE RECORDS SUMMARY | 2024-10-14 13:48 | XMS_ITS | Encounter Summary ---
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
--- OUTSIDE RECORDS SUMMARY | 2024-10-14 13:48 | XMS_ITS | Encounter Summary ---
Author Organization [facility] Healthcare Address [address] [place] [address] Care Team Providers Care Passenger Elevator Operator Name Role Phone Yesi Cook DPT Unavailable Unavailable Shanna Oakes NP Primary Care Provider [phone] Tracy Hernández PACKER AND CARRY OUT Primary Care Provider [phone] Encounter Details Date Type Department Care Team (Late st Contact Info) Description 12/28/2019 Telephone [facility] [address] [place] [address] Melanie Del Rio, Social History Tobacco Use [...] on file 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
--- OUTSIDE RECORDS SUMMARY | 2024-10-14 13:48 | XMS_ITS | Encounter Summary ---
Author Organization [facility] Address [address] [place] [address] Phone Care Team Providers Care Computer Aide Name Role Phone Matt Painting MD Primary Care Provider [phone] Tyesha Abarca DPT Unavailable Unavailable Yesi Cook DPT Unavailable Unavailable Renetta Pearl MA Unavailable [phone] Vernon Hernandez RN Unavailable [phone] Vernon Hernandez RN Unavailable [phone] Renetta Pearl MA Unavailable [phone] Sahnna Oakes QUALITY ENGINEER MEDICAL DEVICE Primary Care Provider [phone] Tracy Hernández QUALITY ENGINEER MEDICAL DEVICE Primary Care Provider [phone] Encounter Details Date Type Department Care Team (Late st Contact Info) Description 06/12/2017 Orders 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 [place] [address] PCP - General Internal Medicine 12/09/19 07/21/24 Tracy Hernández NP [address] [facility] [address] [place] [address] PCP - General Family Medicine 07/22/24 Tyesha Abarca DPT Physical Therapist Physical Therapy 04/30/17 02/08/18 Yesi Cook DPT Physical Therapist Physical Therapy 07/30/17 03/06/20 Renetta Pearl MA [address] [facility] [address] [place] [address] ACO Care Dining Room Busser 12/15/17 12/31/17 Vernon Hernandez, OPHELIA [address] [facility] [address] [place] [address] Communications Editor 01/01/18 02/11/18 Vernon Hernandez RN [address] [facility] [address] [place] [address] CJR Outpatient Lead Manufacturing Technician 07/20/18 10/15/18 Renetta Pearl MA [address] [facility] [address] [place], [place] [id number] ACO Care Dining Room Busser 07/21/18 07/21/18 documented as of this encounter
--- OUTSIDE RECORDS SUMMARY | 2024-10-14 13:48 | XMS_ITS | Encounter Summary ---
Author Organization [facility] Healthcare Address [address] [place] [address] Care Team Providers Care Geothermal System Installer Name Role Phone Matt Painting MD Primary Care Provider [phone] Tyesha Abarca DPT Unavailable Unavailable Yesi Cook DPT Unavailable Unavailable Renetta Pearl MA Unavailable [phone] Vernon Hernandez RN Unavailable [phone] Vernon Hernandez RN Unavailable [phone] Renetta Pearl MA Unavailable [phone] Shanna Oakes MEDICAL ASSISTANT PER DIEM Primary Care Provider [phone] Tracy Hernández MEDICAL ASSISTANT PER DIEM Primary Care Provider [phone] Encounter Details Date Type Department Care Team (Late st Contact Info) Description 11/28/2017 Documentation [facility] Case Management [address] [place] [address] Opal Marsh MSW Social History Tobacco Use Types Packs/Day Years Used Date Smoking Tobacco: Never Smokeless Tobacco: Never Alcohol Use Standard Drinks/Week Comments No 0 (1 standard drink = 0.6 oz pur e alcohol) Comments Unknown Sex and Gender Information Value Date Recorded Sex Assigned at Not on file Legal 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 [place] [address] PCP - General Internal Medicine 12/09/19 07/21/24 Tracy Hernández NP [address] [facility] [address] [place] [address] PCP - General Family Medicine 07/22/24 Tyesha Abarca, KIMBERLY Physical Therapist Physical Therapy 04/30/17 02/08/18 Joyce, Yesi E., DPT Physical Therapist Physical Therapy 07/30/17 03/06/20 Renetta Pearl MA [address] [facility] [address] [place] [address] ACO Care Venetian Blind Assembler 12/15/17 12/31/17 Vernon Hernandez RN [address] [place] [address] [address] [place], [place] [id number] Traffic Incident Management Manager 01/01/18 02/11/18 Vernon Hernandez RN [address] [place] [address] [address] [place], [place] [id number] CJR Outpatient Studio Grip 07/20/18 10/15/18 Renetta Pearl MA [address] [facility] [address] [place] [address] ACO Care Venetian Blind Assembler 07/21/18 07/21/18 documented as of this encounter
--- OUTSIDE RECORDS SUMMARY | 2024-10-14 13:48 | XMS_ITS | Encounter Summary ---
Author Organization [facility] Address [address] [place] [address] Phone Care Team Providers Care Security Monitor Name Role Phone Matt Painting MD Primary Care Provider [phone] Tyesha Abarca DPT Unavailable Unavailable Yesi Cook DPT Unavailable Unavailable Renetta Pearl MA Unavailable [phone] Vernon Hernandez RN Unavailable [phone] Vernon Hernandez RN Unavailable [phone] Renetta Pearl MA Unavailable [phone] Shanna Oakes PLUM PACKER Primary Care Provider [phone] Tracy Hernández PLUM PACKER Primary Care Provider [phone] Encounter Details Date Type Department Care Team (Late st Contact Info) Description 04/15/2017 Orders Only [facility] ProviderChente [place] [address] Social History Tobacco Use Types Packs/Day Years Used Date Smoking Tobacco: Never Smokeless Tobacco: Never Alcohol Use Standard Drinks/Week Comments No 0 (1 standard drink = 0.6 oz pur e alcohol) Comments Unknown Sex and Gender Information Value Date Recorded Sex Assigned at Not on file Legal Sex Female 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 us Historical Provider LAB BLOOD ORDERABLES Arline l Result documented in this encounter Visit Diagnoses Not on filedocumented in this encounter Care Teams Security Monitor Relationship Specialty Start Date End Date Matt Painting MD [address] [facility] [address] [place] [address] PCP - General 05/31/16 12/08/19 Shanna Oakes NP [address] [place] [address] [address] [place] [address] PCP - General Internal Medicine 12/09/19 07/21/24 Tracy Hernández NP [address] [facility] [address] [place] [address] PCP - General Family Medicine 07/22/24 Tyesha Abarca DPT Physical Therapist Physical Therapy 04/30/17 02/08/18 Yesi Cook DPT Physical Therapist Physical Therapy 07/30/17 03/06/20 Renetta Pearl MA [address] [place] [address] [address] [place] [address] ACO Care Associate Software Application Engineer 12/15/17 12/31/17 Vernon Hernandez, OPHELIA [address] [place] [address] [address] [place] [address] Lumber Driver 01/01/18 02/11/18 Vernon Hernandez RN [address] [facility] [address] [place], [place] [id number] CJR Outpatient Research Development Manager 07/20/18 10/15/18 Renetta Pearl MA [address] [facility] [address] [place], [place] [id number] ACO Care Associate Software Application Engineer 07/21/18 07/21/18 documented as of this encounter
--- OUTSIDE RECORDS SUMMARY | 2024-10-14 13:48 | XMS_ITS | Encounter Summary ---
Author Organization [facility] Healthcare Address [address] [place] [address] Care Team Providers Care Car Shagger Name Role Phone Matt Painting MD Primary Care Provider [phone] Yesi Cook DPT Unavailable Unavailable Vernon Hernandez RN Unavailable Renetta Pearl MA Unavailable [phone] Shanna Oakes VP CUSTOMER DEVELOPMENT Primary Care Provider Tracy Hernández VP CUSTOMER DEVELOPMENT Primary Care Provider [phone] Encounter Details Date Type Department Care Team (Late st Contact Info) Description 06/24/2018 Documentation [facility] Case Management [address] [place] [address] Opal Marsh MSW Social History Tobacco Use Types Packs/Day Years Used Date Smoking Tobacco: Never Smokeless Tobacco: Never Alcohol Use Standard Drinks/Week Comments No 0 (1 standard drink = 0.6 oz pur e alcohol) Comments No Sex and Gender Information Value Date Recorded Sex Assigned at Not on file Legal 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 the [facility] in [place]. Pt informed that the referral will be sent upon admission for placement if PT recs SNF. SW will followafter surgery. documented in this encounter Plan of Treatment Not on file documented as of this encounter Visit Diagnoses Not on filedocumented in this encounter Care Teams Car Shagger Relationship Specialty Start Date End Date Matt Painting MD [address] [facility] [address], [place] [address] PCP - General 05/31/16 12/08/19 Shanna Oakes NP [address] [place] [address] [address] [place] [address] PCP - General Internal Medicine 12/09/19 07/21/24 Tracy Hernández NP [address] [facility] [facility] [address] [place] [address] PCP - General Family Medicine 07/22/24 Yesi Cook DPT Physical Therapist Physical Therapy 07/30/17 03/06/20 Vernon Hernandez RN [address] [place], [place] [address] [address] CJR Outpatient Tin Worker 07/20/18 10/15/18 Renetta Pearl, SONIA [address] [place] [address] ACO Care Driver Medic 07/21/18 07/21/18 documented as of this encounter
--- OUTSIDE RECORDS SUMMARY | 2024-10-14 13:48 | XMS_ITS | Encounter Summary ---
Author Organization [facility] Healthcare Address [address] [place] [address] Care Team Providers Care Brands Editor Name Role Phone Tracy Hernández NP Primary Care Provider [phone] Reason for Visit * Reason Onset Date Comments Dysuria 08/02/2024 IV Antibiotics 08/02/2024 Encounter Details Date Type Department Care Team (Late st Contact Info) Description 08/02/[address] [facility] Medical Group Primary Care at [address] [address] Tracy Hernández NP [address] [place] [address] [address] [place] [address] Social History Tobacco Use Types [...] on file Legal Sex Female 11:38 PM TIRE SPOTTER Gender Identity Female 08/02/2019 9:59 AM CDT [...] AM CDT Medical Question/Miscellaneous Caller???s Concern: Yeimy, bench manager with the [facility], calling in to get further clarification on instructions for patient to go to the ED. Warm transferred. Does message need to be routed? No Reason for Warm Transfer: Symptoms: Patient has Red flag symptoms, shovel operator evaluated patient and directed patient to call [...] Tract Infection on Antibiotic Follow-up Call - [id number] * Telephone Encounter - Odette Zimmer RN [...] on filedocumented in this encounter Care Teams Brands Editor Relationship Specialty Start Date End Date Tracy Hernández NP [address] [address] PCP - General Family Medicine 07/22/24 documented as of this encounter
--- OUTSIDE RECORDS SUMMARY | 2024-10-14 13:48 | XMS_ITS | Clinical Summary ---
Author Organization [facility] Address [address] [place] [address] Care Team Providers Care Automation Machine Builder Name Role Phone Tracy Hernández NP Primary Care Provider [phone] Allergies Active Allergy Reactions Criticality Noted Date [...] ANXIETY 60 tablet 1 06/22/19 25 Active zolpidem CR (AMBIEN CR) 6.25 [...] for pain 60 tablet 09/22/19 25 Active levothyroxine (SYNTHROID) 100 mcg tablet TAKE 1 TABLET BY MOUTH DAILY BEFORE BREAKFAST 90 tablet 10/13/19 25 Active levothyroxine (SYNTHROID) 100 mcg tablet Take 1 tablet (100 mcg total) by mouth clinical laboratory aides teacher before breakfast 90 tablet 07/24/19 25 025 Discontinued traMADoL (ULTRAM) 50 mg tablet Take 1 [...] zolpidem. Assessment & Plan (03/30/2024 12:53 PM PROCESS CONTROL PROGRAMMER): Stable, continue Zolpidem Assessment & Plan (12/29/2023 1:26 PM CDT): Worse. Will switch to an ER Zolpidem. Dermatochalasis of both upper eyelids 10/15/2022 Assessment & Plan (10/16/2023 4:47 PM CDT): Pt not bothered, monitor Assessment & Plan (10/15/2022 12:55 PM CDT): Not v/s, monitor Atherosclerosis of aorta 05/09/2022 Overview (05/09/2022): 05/09/21- xray Assessment & Plan (03/30/2024 12:52 PM PROCESS CONTROL PROGRAMMER): Stable, continue aspirin and Atorvastatin Assessment & Plan (09/16/2023 10:46 AM CDT): Stable, continue Atorvastatin and aspirin. Assessment & Plan (01/13/2023 10:31 AM PROCESS CONTROL PROGRAMMER): Stable, continue aspirin and Atorvastatin Encounter for Medicare annual wellness exam 05/02 Assessment & Plan (03/30/2024 12:49 PM PROCESS CONTROL PROGRAMMER): Please see below for a list of your medical conditions and recommendations. Assessment & Plan (01/13/2023 10:30 AM PROCESS CONTROL PROGRAMMER): Please see below for a list of [...] 020 Assessment & Plan (03/30/2024 12:53 PM PROCESS CONTROL PROGRAMMER): Stable, continue aspirin and Atorvastatin Assessment & Plan (09/16/2023 10:47 AM CDT): Stable, continue Atorvastatin and aspirin Assessment & Plan (01/13/2023 10:32 AM PROCESS CONTROL PROGRAMMER): Stable, continue aspirin and Atorvastatin Assessment & Plan (01/03/2022 1:32 PM CDT): Stable, continue aspirin and Atorvastatin. Assessment & Plan (05/03/2021 11:10 AM PROCESS CONTROL PROGRAMMER): Stable, continue Atorvastatin and aspirin Assessment & [...] UTI Assessment & Plan (04/15/2017 12:43 PM PROCESS CONTROL PROGRAMMER): Having increased urinary frequency but no pain, feels similar to UTIs in the past. UA today with just trace blood, negative for leuks and nitrites Advised to keep hydrated and will send UA for culture BMI 28.0-28.9,adult 04/15/2017 Assessment & Plan (10/08/2017 11:47 AM CDT): Try to cut back on calories. Most people should eat between 9587-0395 calories to lose weight. Decrease your carbohydrate [...] help. Assessment & Plan (04/15/2017 11:14 AM PROCESS CONTROL PROGRAMMER): BMI Follow-up includes: nutrition counseling and exercise [...] management. Assessment & Plan (05/03/2021 11:10 AM PROCESS CONTROL PROGRAMMER): Stable, continue Gabapentin and Duloxetine Assessment & Plan (12/19/2019 7:35 PM CDT): Stable, continue duloxetine Assessment & Plan (06/14/2019 8:10 AM CDT): Requires chronic duloxetine and gabapentin therapy. Does see pain management at times. Assessment & Plan (04/15/2017 12:40 PM PROCESS CONTROL PROGRAMMER): Improved and using lidocaine patches which help. Suspect this is more from bulging disc than it is from UTI and patient agrees. Major depression single episode, in partial amanda ssion 08/28/2016 Assessment & Plan (03/30/2024 12:53 PM PROCESS CONTROL PROGRAMMER): Stable, continue Duloxetine Assessment & Plan (12/29/2023 1:26 PM CDT): Stable, continue Duloxetine Assessment & Plan (01/13/2023 10:33 AM PROCESS CONTROL PROGRAMMER): Stable, continue Duloxetine Assessment & Plan (09/10/2022 3:17 PM CDT): Improved. Continue Duloxetine Assessment & Plan (05/03/2022 2:59 PM PROCESS CONTROL PROGRAMMER): Stable, continue Duloxetine Assessment & Plan (01/03/2022 1:30 PM CDT): Intermittent. Continue Duloxetine. Assessment & Plan (05/03/2021 11:09 AM PROCESS CONTROL PROGRAMMER): Chronic and unchanged. Continue Duloxetine Assessment & [...] Duloxetine Assessment & Plan (02/16/2018 1:25 PM PROCESS CONTROL PROGRAMMER): Doing well with the clonazepam and duloxetine Assessment & Plan (04/15/2017 12:42 PM PROCESS CONTROL PROGRAMMER): Still teary in the room over the [...] disease Assessment & Plan (03/30/2024 12:49 PM PROCESS CONTROL PROGRAMMER): The blood pressure is adequately controlled. Ideally, [...] way. Assessment & Plan (01/13/2023 10:30 AM PROCESS CONTROL PROGRAMMER): The blood pressure is adequately controlled. Ideally, [...] way. Assessment & Plan (05/03/2022 2:57 PM PROCESS CONTROL PROGRAMMER): The blood pressure is adequately controlled. Ideally, [...] way. Assessment & Plan (05/03/2021 11:08 AM PROCESS CONTROL PROGRAMMER): The blood pressure is adequately controlled. Ideally, [...] Future Assessment & Plan (03/30/2024 12:50 PM PROCESS CONTROL PROGRAMMER): Stable, continue levothyroxine Assessment & Plan (12/29/2023 1:24 PM CDT): Stable, continue levothyroxine Assessment & Plan (09/16/2023 10:46 AM CDT): Stable? Will recheck today. Assessment & Plan (01/13/2023 10:31 AM PROCESS CONTROL PROGRAMMER): Stable, continue levothyroxine. Assessment & Plan (09/10/2022 3:15 PM CDT): Stable? Will recheck today. Assessment & Plan (05/03/2022 2:57 PM PROCESS CONTROL PROGRAMMER): Stable? Will recheck today. Assessment & Plan (01/03/2022 1:24 PM CDT): Stable, continue levothyroxine Assessment & Plan (05/03/2021 11:08 AM PROCESS CONTROL PROGRAMMER): Stable? Continue levothyroxine. Assessment & Plan (11/08/2020 [...] are stable, reviewed previous lipid levels in epic. Continue statin therapy. Lipitor (atorvastatin) Order for lipid panel was given today to be obtained. Pt voiced understanding of lab drawn and continuation of current medication regimen. Assessment & Plan (03/30/2024 12:49 PM PROCESS CONTROL PROGRAMMER): Continue low fat eating- limit fried foods, [...] prescribed. Assessment & Plan (01/13/2023 10:30 AM PROCESS CONTROL PROGRAMMER): Continue low fat eating- limit fried foods, [...] prescribed. Assessment & Plan (05/03/2022 2:58 PM PROCESS CONTROL PROGRAMMER): Continue low fat eating- limit fried foods, [...] day. Assessment & Plan (05/03/2021 11:09 AM PROCESS CONTROL PROGRAMMER): Continue low fat eating- limit fried foods, [...] attacks Assessment & Plan (03/30/2024 1:37 PM PROCESS CONTROL PROGRAMMER): Not controlled, continue Lorazepam as needed Assessment & Plan (01/13/2023 10:32 AM PROCESS CONTROL PROGRAMMER): Stable, continue Duloxetine and Lorazepam as needed. Assessment & Plan (09/10/2022 3:18 PM CDT): Improved. Continue Duloxetine and uses Lorazepam as needed. Try not take this medication daily or residential is at all possible as it can lead to dependence/addiction/tolerance, memory issues and may cause depression watermelon inspector. Keep this medication out of the reach of other people. Do not drive or drink alcohol with this medication. Assessment & Plan (05/03/2022 3:00 PM PROCESS CONTROL PROGRAMMER): Chronic and unchanged. Continue Lorazepam as needed. Assessment & Plan (01/03/2022 1:31 PM CDT): Stable, continue Lorazepam as needed Assessment & Plan (11/08/2020 5:25 PM CDT): Stable, continue Clonazepam Assessment & Plan (05/22/2020 8:01 PM CDT): Stable, continue Clonazepam as needed. Do not take this medication daily or watermelon inspector is at all possible as it can lead to dependence/addiction/tolerance, memory issues and may cause depression watermelon inspector. Keep this medication out of the [...] disease) Assessment & Plan (03/30/2024 12:53 PM PROCESS CONTROL PROGRAMMER): Try to eat smaller more frequent meals. [...] weight. Assessment & Plan (01/13/2023 10:32 AM PROCESS CONTROL PROGRAMMER): Try to eat smaller more frequent meals. [...] weight. Assessment & Plan (05/03/2022 2:59 PM PROCESS CONTROL PROGRAMMER): Try to eat smaller more frequent meals. [...] weight. Assessment & Plan (05/03/2021 11:09 AM PROCESS CONTROL PROGRAMMER): Try to eat smaller more frequent meals. [...] today. Assessment & Plan (03/30/2024 12:53 PM PROCESS CONTROL PROGRAMMER): Continue to increase water intake. Limit use [...] weight. Assessment & Plan (01/13/2023 10:32 AM PROCESS CONTROL PROGRAMMER): Continue to increase water intake. Limit use of NSAIDs including Ibuprofen, Aleve, Motrin, etc. Continue aerobic exercise and maintain a healthy weight. Assessment & Plan (09/10/2022 3:20 PM CDT): Continue to increase water intake. Limit use of NSAIDs including Ibuprofen, Aleve, Motrin, etc. Continue aerobic exercise and maintain a healthy weight. Assessment & Plan (05/03/2022 3:00 PM PROCESS CONTROL PROGRAMMER): Continue to increase water intake. Limit use of NSAIDs including Ibuprofen, Aleve, Motrin, etc. Continue aerobic exercise and maintain a healthy weight. Assessment & Plan (01/03/2022 1:31 PM CDT): Continue to increase water intake. Limit use of NSAIDs including Ibuprofen, Aleve, Motrin, etc. Continue aerobic exercise and maintain a healthy weight. Assessment & Plan (05/03/2021 11:10 AM PROCESS CONTROL PROGRAMMER): Continue to increase water intake. Limit use [...] (06/12/2018): Added automatically from request for surgery [id number] Encounter for weight management 06/05/2018 07/22/2024 Dyslipidemia [...] needed Assessment & Plan (04/10/2018 4:07 PM PROCESS CONTROL PROGRAMMER): The patient has done very well overall [...] x-rays. Assessment & Plan (02/18/2018 11:58 AM PROCESS CONTROL PROGRAMMER): Treatment options were discussed. The patient would [...] on calories. Most people should eat between 8867-1541 calories to lose weight. Decrease your carbohydrate [...] on calories. Most people should eat between 2597-4534 calories to lose weight. Decrease your carbohydrate [...] 07/22/2024 Assessment & Plan (04/15/2017 12:41 PM PROCESS CONTROL PROGRAMMER): Will do ambulatory PT as she is [...] CDT): Stable RTC 1 yr w/ Dr. Valdovinosetrulius Assessment & Plan (06/05/2018 10:41 AM CDT): Stable RTC 1 yr Acute colitis 12/22/2018 Encounters Date Type Department Care Team Description 09/20/2024 Orders Only [facility] Primary Care at [address] [phone] Tracy Hernández NP 09/20/2024 Orders Only [facility] [address], [address] [place] [facility] [place] [address] Jackie Mckeon, OD Encounter for observation for other suspected diseases and conditions ruled out (Primary Dx) 09/17/2024 12:32 PM CDT - 09/17/2024 11:59 PM CDT Hospital Encounter [address] [address] Frequent UTI Discharge Disposition: Discharge to home or self care 09/17/2024 12:30 PM CDT Lab [facility] Outpatient Lab at [address] [phone] 09/17/2024 Results Follow-Up [facility] Primary Care at [address] [phone] Tracy Hernández, TRAINING MGR Basic metabolic panel, TSH, eGFR, Urine culture Urine, clean voided 09/16/2024 3:06 PM CDT - 09/16/2024 11:59 PM CDT Hospital Encounter [id number] [place] [address] Stage 3a chronic kidney disease (HCC); Acquired hypothyroidism Discharge Disposition: Discharge to home or self care 09/16/2024 3:00 PM CDT Lab [facility] Outpatient Lab at [address] [phone] 09/16/2024 2:00 PM CDT Office Visit [facility] Primary Care at [address] [phone] Tracy Hernández NP Stage 3a chronic kidney disease (HCC) (Primary Dx); Frequent UTI; Acquired hypothyroidism 08/30/2024 Nurse Triage [facility] Primary Care at [address] [phone] Tracy Hernández TRAINING MGR 08/30/2024 Orders Only [facility] Primary Care at [address] [phone] Tracy Hernández NP 08/30/2024 Telephone [facility] Primary Care at [address] [phone] Tracy Hernández NP Med Refill 08/30/2024 Telephone [facility] [address] [phone] Shanna Oakes NP 08/27/2024 Telephone [facility] [address] [place] [address] Manuela Shah NP 08/12/2024 Telephone [facility] Primary Care at [address] [phone] Tracy Hernández NP Symptom Based Call; Medical Question/Miscellaneou s 08/09/2024 Orders Only [facility] Primary Care at [address] [phone] Tracy Hernández NP 08/02/2024 Nurse Triage [facility] Primary Care at [address] [phone] Tracy Hernández NP 07/23/2024 Results Follow-Up [facility] Primary Care at [address] [phone] Tracy Hernández NP Comprehensive metabolic panel, Thyroid Function [place], Hemoglobin A1c, Additional followed-up results: 8 07/22/2024 10:15 AM CDT Lab [facility] Outpatient Lab at [address] [phone] 07/22/2024 10:12 AM CDT - 07/22/2024 11:59 PM CDT Hospital Encounter [address] [address] Hypertensive renal disease; Acquired hypothyroidism; Elevated glucose; Hypercholesterolemia Discharge Disposition: Discharge to home or self care 07/22/2024 9:30 AM CDT Office Visit [facility] Primary Care at [address] [phone] Tracy Hernández NP Acquired hypothyroidism (Primary Dx); Hypertensive renal disease; Hypercholesterolemia; Elevated glucose; Gastroesophageal reflux disease without esophagitis; Stage 3a chronic kidney disease (HCC); Generalized anxiety disorder with panic attacks; Major depression single episode, in partial remission; Primary insomnia 07/22/2024 Telephone [facility] [address] [place] [phone] Shanna Oakes NP Medical Question/Miscellaneou s from Last 3 Months Immunizations Immunization Administration [...] kidney disease) stage 3, GFR 30-59 ml/min ([facility]) Ocular migraine 03/13/2015 Cataract removed Brain [...] Grandfather Raúl Saba Diabetes Maternal Grandmother Daisha Flora Kennyey Heart attack Mother Sowmya Sims age 62 Heart disease Mother Sowmya Cline y Miguel Hypertension Mother Sowmya Cline y Miguel Alzheimer's disease Other Paternal aunt/uncle with Alzheimer's Cancer Paternal Grandfather Costa Rivera Kidney disease Paternal Grandmother Stephany Rivera Alzheimer's disease Son 1 living a ge 61 No Known Problems Son 2 living age 57 Alzheimer's disease Son 3 ana artur webber jr. Relation Name Status Comments Father Baljit Rivera Maternal Grandfather Raúl Saba Alive Maternal Grandmother Daisha Saba Alive Mother Sowmya Rivera Other Paternal Grandfather Costa Rivera Alive Paternal Grandmother Stephany Rivera Alive Son 1 Alive Son 2 Alive Son 3 ana siddiqui derian medina Alive Social History Tobacco Use Types Packs/Day [...] on file Legal Sex Female 11:38 PM PROCESS CONTROL PROGRAMMER Gender Identity Female 08/02/2019 9:59 AM CDT [...] 12/22/2014, 05/01 Medical Devices Implanted Type Area Computer Systems Design Analyst Device Identifier Shelf Expiration Date Model / Serial / Lot [employer] 6191-1-010 Simplex P Radiopaque Full Dose Cement Bone Sterile - [id number] Implanted:Qty: 1 on 07/15/2018 by Irving Mccauley MD at [facility] Bone Cement Left: Knee [employer] 07/31/2020 6191-1-010 / / [id number] [employer] 6191-1-010 Simplex P Radiopaque Full Dose Cement Bone Sterile - [id number] Implanted:Qty: 1 on 07/15/2018 by Irving Mccauley MD at [facility] Bone Cement Left: Knee [employer] 07/31/2020 6191-1-010 / / [id number] Baseplate Shoulder 15mm Length - [id number] Implanted:Qty: 1 on 12/10/2017 by Tayo Murray DO at [facility] Right: Shoulder [employer] Rhea 09/30/2022 GBP-0960-0 30-15 / / [id number] Screw 5.5mm 20mm Length Shoulder - [id number] Implanted:Qty: 1 on 12/10/2017 by Tayo Murray DO at [facility] Right: Shoulder [employer] Rhea 07/29/2022 SCW-0960-0 55-20 / / [id number] Screw And Cap 4.5mm 15mm Shoulder - [id number] Implanted:Qty: 2 on 12/10/2017 by Tayo Murray DO at [facility] Right: Shoulder [employer] Rhea 08/28/2020 SSC-0960-0 45-15 / / [id number] Screw And Cap 4.5mm 20mm Shoulder - [id number] Implanted:Qty: 1 on 12/10/2017 by Tayo Murray DO at [facility] Right: Shoulder [employer] Rhea 06/01/2022 SSC-0960-0 45-20 / / [id number] Screw And Cap 4.5mm 25mm Shoulder - [id number] Implanted:Qty: 1 on 12/10/2017 by Tayo Murray DO at [facility] Right: Shoulder [employer] Rhea 05/30/2022 SSC-0960-0 45-25 / / [id number] Glenosphere Shoulder 5mm Eccentric - [id number] Implanted:Qty: 1 on 12/10/2017 by Tayo Murray DO at [facility] Right: Shoulder [employer] Rhea 11/30/2021 GLS-0960-0 5E / / [id number] [employer] Rhea [id number] 1 Titan 16.5mm 12.1mm 90.4mm Press Fit 12 Spline Modular - [id number] Implanted:Qty: 1 on 12/10/2017 by Tayo Murray DO at [facility] Right: Shoulder [employer] Rhea 09/30/2021 STEM-0920- 025-11 / / [id number] Body Shoulder Small Reverse [id number]-[id number] - [id number] Implanted:Qty: 1 on 12/10/2017 by Tayo Murray DO at [facility] Right: Shoulder [employer] Rhea 04/02/2022 BBS-0960-2 1SML / / [id number] Liner +0mm 9.6mm Standard 20mm 2.7mm 38.7mm Shoulder Humeral - [id number] - [id number] Implanted:Qty: 1 on 12/10/2017 by Tayo Murray DO at [facility] Right: Shoulder [employer] Rhea 04/30/2021 LNR-0960-0 0S / LNR-0960-0 0S / [id number] [employer]Rich[employer]/O rtho [id number] Shannan Ii [id number] Knee Oval Component Patellar Uhmwpe - [id number] Implanted:Qty: 1 on 07/15/2018 by Irving Mccauley MD at [facility] Left: Knee [employer]/ Ortho [id number] 04/25/2028 [id number] / / [id number] [employer]/O rtho [id number] Journey Knee Left 3 Baseplate Tibial - [id number] Implanted:Qty: 1 on 07/15/2018 by Irving Mccauley MD at [facility] Left: Knee [employer]/ Ortho [id number] 09/23/2027 [id number] / / [id number] [employer]/O rtho [id number] Journey Ii Cruciate Retain Knee Left 4 Component Femoral Cocr - [id number] Implanted:Qty: 1 on 07/15/2018 by Irving Mccauley MD at [facility] Left: Knee [employer]/ Ortho [id number] 12/06/2027 [id number] / / [id number] [employer]/O rtho [id number] Journey Ii Left 3-4 Deep [facility] Insert Articular Xlpe - [id number] Implanted:Qty: 1 on 07/15/2018 by Irving Mccauley MD at [facility] Left: Knee [employer]/ Ortho [id number] 03/09/2026 [id number] / / [id number] Explanted Type Area Computer Systems Design Analyst Device Identifier Shelf Expiration Date Model / Serial / Lot [employer]osh[employer] [id number] 2mm 150mm Elbow Shoulder Guide Pin Orthopedic - [id number] Explanted:Qty: 2 on 12/10/2017 at [facility] Right: Shoulder Integra [employer] [id number] / / Procedures Procedure Name Priority [...] bacterial lashonda. (.) Comment:Testing performed by : [facility], [address] [place]., [address] Organism CITROBACTER FREUNDII COMPLEX [facility] Organism PLUS GROWTH OF CLINICALLY INSIGNIFICANT LASHONDA. [facility] Urine, clean voided 09/17/2024 12:32 PM CDT 09/18/2024 12:16 AM CDT Narrative [facility] - 09/19/2024 3:50 PM CDT Testing performed by [facility] Microbiology Laboratory ([phone]) Organism Antibiotic Method Susceptibility Citrobacter freundii complex [...] DERABLES Final Result Performing Organization Address City/[facility] Co de Phone Number AAMIR ALAS [address] [address] Department [employer] [place], [place] [id number] * eGFR (09/16/2024 3:06 PM CDT) eGFR [...] Final Re sult Performing Organization Address City/[facility]/ZIP Co de Phone Number AAMIR ALAS [address] [address] Department [place] [place] [address] * TSH (09/16/2024 3:06 PM CDT) Thyroid Stimulating Hormone 3.35 0.30 - 4.20 mcIUnit/mL Blood 09/16/2024 3:06 PM CDT 09/16/2024 10:39 PM CDT Tracy Hernández NP LAB BLOOD ORDERABLES Final Re sult AAMIR ALAS [address] [address] [place] [place] [address] * Basic metabolic panel (09/16/2024 3:06 PM CDT) Sodium 139 135 - 145 mmol/L Potassium, pl 4.1 3.3 - 4.9 mmol/L [facility] Chloride 100 97 - 110 mmol/L [facility] CO2 26 22 - 32 mmol/L [facility] Anion gap 13 2 - 15 mmol/L [facility] BUN 24 6 - 25 mg/dL [facility] Creatinine 0.74 0.60 - 1.10 mg/dL [facility] Glucose 136 70 - 199 mg/dL [facility] Comment: Interpretive Data Fasting glucose >/= 126 [...] 2022. Calcium 8.8 8.5 - 10.3 mg/dL [facility] Blood 09/16/2024 3:06 PM CDT 09/16/2024 10:39 PM CDT Tracy Hernández NP LAB BLOOD ORDERABLES Final Re sult AAMIR ALAS [address] [address] Department [place] [address] * eGFR (07/22/2024 10:12 AM CDT) eGFR [...] NP LAB BLOOD ORDERABLES Final Re sult [facility] [address] [address] Department [place] [address] * (ABNORMAL) Differential, auto (07/22/2024 10:12 AM CDT) Neutrophil abs 4.47 1.50 - 6.50 K/cumm Imm gran abs 0.03 0.00 - 0.10 K/cumm [facility] Lymphocyte abs 2.26 0.80 - 3.30 K/cumm [facility] Monocyte abs 0.86(H) 0.20 - 0.80 K/cumm [facility] Eosinophil abs 0.16 0.00 - 0.50 K/cumm [facility] Basophil abs 0.05 0.00 - 0.10 K/cumm [facility] Neutrophil pct 57.1 % [facility] Comment: Interpretive Data Percent cell count [...] ORDERABLES Final Re sult Performing Organization Address [facility] Co de Phone Number [facility] [address] [address] Department [employer] [place], [place] [id number] * (ABNORMAL) Thyroid Function [place] (07/22/2024 10:12 AM CDT) TSH 20.00(H) 0.30 - 4.20 mcIUnit/mL Blood 07/22/2024 10:1 2 AM CDT 07/22/2024 9:19 PM CDT Tracy Hernández NP LAB BLOOD ORDERABLES Final Re sult Performing Organization Address [facility] Co de Phone Number [facility] [address] [address] [place] [place] [address] * (ABNORMAL) Urinalysis reflex to microscopic and [...] tendency for uric acid stone formation. Source: [facility] Current Interpretive Data was last revised [...] Reflex to microscopic UA will be performed. [facility] Urine, clean voided 07/22/2024 10:12 AM CDT 07/22/2024 9:19 PM CDT Tracy Hernández NP LAB MICROBIOLOGY - GENERAL OR DERABLES Final Result [facility] [address] [address] Department [place] [address] * (ABNORMAL) CBC with auto [...] ORDERABLES Final Re sult Performing Organization Address [facility] Co de Phone Number AAMIR ALAS [address] [address] Department [place] [address] * (ABNORMAL) Urinalysis, microscopic only (07/22/2024 10:12 AM CDT) WBC, ur >50(A) 0 - 5 /HPF RBC, ur 21-50(A) 0 - 2 /HPF [facility] Bacteria, ur 4+(A) [facility] Amorphous crystals, ur 1+(A) [facility] Culture Reflex Comment Reflex to urine culture will be performed. [facility] Urine, clean voided 07/22/2024 10:12 AM CDT 07/22/2024 9:19 PM CDT Tracy Hernández TRAINING MGR LAB URINE ORDERABLES Final Re sult Performing Organization Address [facility] [facility] Co de Phone Number AAMIR ALAS [address] [address] Department [place] [address] * (ABNORMAL) Urine culture Urine, clean voided (07/22/2024 10:12 AM CDT) Report Final Report: Greater than or equal to 100,000 colonies/mL of Escherichia coli Plus growth of clinically insignificant bacterial lashonda. (.) Comment:Testing performed by : [facility], [address] [place]., [address] Organism [facility] Organism PLUS GROWTH OF CLINICALLY INSIGNIFICANT LASHONDA. AAMIR Urine, clean voided 07/22/2024 10:12 AM CDT 07/23/2024 2:19 AM CDT Narrative AAMIR - 07/25/2024 12:17 PM CDT Urine culture reflexed based upon urinalysis results. Testing performed by [facility] Microbiology Laboratory ([phone]) Organism Antibiotic Method Susceptibility Escherichia coli Ampicillin [...] DERABLES Final Result Performing Organization Address City/[facility] Co de Phone Number AAMIR [address] [address] [place] [address] * T4, free (07/22/2024 10:12 AM CDT) Free T4 1.09 0.90 - 1.70 ng/dL Blood 07/22/2024 10:1 2 AM CDT 07/22/2024 9:30 PM CDT Tracy Hernández NP LAB BLOOD ORDERABLES Final Re sult Performing Organization Address City/[facility] Co de Phone Number AAMIR [address] [address] Department [employer] [place], [place] [id number] * (ABNORMAL) Hemoglobin A1c (07/22/2024 10:12 AM CDT) Hgb A1C 5.9(H) 4.0 - 5.6 % Estimated Average Glucose 123 mg/dL AAMIR ALAS Comment: The ADA recommends reporting an estimated Average Glucose (eAG) with all Hemoglobin A1c results using the equation derived from a study of 507 normal and diabetic adults. Minority populations were underrepresented and children were not included. (Diabetes Care 31:0727-4648, 2008). The eAG is not equivalent to a fasting glucose. Blood 07/22/2024 10:1 2 AM CDT 07/22/2024 9:19 PM CDT Tracy Hernández NP LAB BLOOD ORDERABLES Final Re sult AAMIR [address] Department [place] [address] * (ABNORMAL) Lipid panel (07/22/2024 10:12 AM [...] CDT 07/22/2024 9:19 PM CDT Tracy Hernández TRAINING MGR LAB BLOOD ORDERABLES Final Re sult CERNER [address] [address] Department [place] [address] * Comprehensive metabolic panel (07/22/2024 10:12 AM [...] BLOOD ORDERABLES Final Re sult AAMIR ALAS [address] [address] Department [place] [address] * Dexa Axial Skeleton Bone Density 1 [...] Dual x-ray absorptiometry (DEXA) was performed using [employer] system. GENERAL GUIDELINES: According to WHO guidelines, [...] Dual x-ray absorptiometry (DEXA) was performed using [employer] system. GENERAL GUIDELINES: According to WHO guidelines, [...] to Health Maintenance Insurance MEDICARE COMMERCIAL GENERIC [facility] MEDICARE COMMERCIAL GENERIC MEDICARE COMMERCIAL GENERIC Advance Directives For more information, please contact: [phone] Documents on File Type Date Recorded Patient Agricultural Production Engineer Expl anation ADVANCE DIRECTIVE 08/20/2019 2:35 PM Power of Knitting Machine Mechanic-Medical ADVANCE DIRECTIVE 07/15/2018 11:14 AM ADVANCE DIRECTIVE [...] 3:25 PM 12/13/2017 4:26 PM Care Teams Automation Machine Builder Relationship Specialty Start Date End Date Tracy Hernández NP [address] [facility] [address] [place] [address] PCP - General Family Medicine 07/22/24
--- OUTSIDE RECORDS SUMMARY | 2024-10-14 13:48 | XMS_ITS | Continuity of Care Document ---
Author Organization [facility] Address [address] [place] [address] Phone Care Team Providers Care Window Repairer Name Role Phone Lee Wright MD Unavailable Unavailable Procedures Procedure Date INJ SPINE CERV/THOR W/ IMAGING GUIDANCE SURGICAL TRAY LOW OSMOLAR CONTRAST (200 TO 299 MG IODI NE) Injection, Triamcinolone Acetonide, 10mg Advance Directives Directive Yes / No Effective Date File Name No Information Encounters Encounter Description Practice Location Reason(s) For Visit Diagnoses Date Provider Providers Copied on Encounter [facility], [address], [place], [place], [address], tel:[phone] [facility] No Information Kyle Julian [address] [place], [place], [id number], . tel:[phone] [facility], [address], [place], [place], [address], tel:[phone] [facility] No Information Kyle Julian [address] [place], [place], [address], . tel:[phone] Referring Provider: Manuela Shah [address] [place] [address], [place], [address]. tel:[phone] Family History Family Member Type Diagnosis Age At Onset No Information Payers Payer name Insurance type Covered green party ID Authoriza tion(s) MEDICARE [id number] [facility] [id number] Social History Type Description Quantity Date Captured [...]
[2024-10-14 13:55] VITALS: BP 134/81; PULSE 95; RESP 18; TEMP 36.3; O2SAT 100
--- NOTE | 2024-10-14 14:01 | ED_ITS ---
HPI - Extremity Problem General Chief complaint: Extremity Problem,Nontraumatic Stated complaint: R. knee swelling x 1 day Time Seen by Provider: 10/14/24 14:01 Focused HPI: Patient is an 89-year-old female who presents to the ER through right knee swelling and right lower extremity pain. She reports the pain started yesterday. Patient denies any trauma to the area. Patient reports the pain is worse when she puts pressure on her leg or tries to stand on it. She endorses a history of chronic urinary tract infections, high blood pressure, and thyroid disorder. Patient denies any history of blood clots or recent fevers. GENERAL: Well-appearing, well-nourished, and in no acute distress. HEAD: Normocephalic, atraumatic. CHEST: Clear to auscultation. ?No respiratory distress. HEART: Regular rate and rhythm.? NEURO: ?Alert and oriented x3. Patient screened in triage and initial orders placed.? ?Additional care and disposition to be based upon?diagnostic testing and treatment. Related Data Home Medications ?Medication ?Instructions ?Recorded ?Confirmed ?Last Taken ?Type amlodipine 5 mg tablet 5 mg PO DAILY 01/06/19 09/09/24 01/12/19 05:00 History 5 MG atorvastatin 20 mg tablet 20 mg PO DAILY 01/06/19 09/09/24 Unknown History biotin 1,000 mcg chewable tablet 1,000 mcg PO DAILY 01/06/19 09/09/24 Unknown History duloxetine 60 mg capsule,delayed 60 mg PO BID 01/06/19 09/09/24 Unknown History release hydrochlorothiazide 12.5 mg capsule 12.5 mg PO DAILY 01/06/19 09/09/24 Unknown History potassium chloride 10 mEq 10 meq PO DAILY 01/06/19 09/09/24 Unknown History tablet,extended release levothyroxine 50 mcg tablet 100 mcg PO DAILY 07/28/24 09/09/24 Unknown History (Synthroid) zolpidem 10 mg tablet 10 mg PO QHS 09/09/24 Unknown History Allergies Allergy/AdvReac Type Severity Reaction Status Date / Time ciprofloxacin Allergy Intermediate Other Verified 09/09/24 10:24 valsartan Allergy Unknown Other Verified 09/09/24 10:24 nitrofurantoin AdvReac Mild Nausea,Vomiting, Verified 09/09/24 10:24 Diarrhea sulfamethoxazole AdvReac Unknown UPSET Verified 09/09/24 10:24 STOMACH trimethoprim AdvReac Unknown UPSET Verified 09/09/24 10:24 STOMACH PMFSH Past Medical History Medical History (Updated 10/14/24 @ 15:39 by Tio Durán MD) History of recurrent UTIs Elevated fecal calprotectin Abnormal CT scan Abdominal pain Bloating Constipation Degenerative disc disease Hypothyroid Hyperlipidemia Migraine Hypertension Spinal stenosis Surgical History Surgical History History of hysterectomy Social History Social History Smoking status: Never smoker Gender identity (if verbalized by the patient): Female Course Vital Signs Vital signs: Vital Signs Temperature 36.3 C L 10/14/24 13:55 Pulse Rate 95 10/14/24 13:55 Respiratory Rate 18 10/14/24 13:55 Blood Pressure 134/81 10/14/24 13:55 Pulse Oximetry 100 10/14/24 13:55 Oxygen Delivery Room Air 10/14/24 13:55 Temperature 36.3 C L 10/14/24 13:55 Pulse Rate 80 10/14/24 16:02 Respiratory Rate 16 10/14/24 16:02 Blood Pressure 123/86 10/14/24 16:02 Pulse Oximetry 97 10/14/24 16:02 Oxygen Delivery Room Air 10/14/24 13:55 Discharge Plan Discharge Clinical Impression: Chronic knee pain Patient Disposition: Home Condition: Stable Instructions: Antibiotic Form, Knee Pain (ED) Additional Instructions: You were seen in the emergency department for knee pain. Please take Tylenol for pain. Use oxycodone or tramadol for breakthrough pain. Please call Dr. Garcia's clinic 1st thing tomorrow morning to arrange follow-up within 1 week. If you develop severe pain, fevers or any new or worsening symptoms please return to ED for re-evaluation. Patient Language: Icelandic Prescriptions: New acetaminophen 500 mg capsule 1,000 mg PO Q6H PRN (Reason: pain) Qty: 60 0RF oxycodone 5 mg tablet 5 mg PO Q4H PRN (Reason: pain) Qty: 14 0RF No Action Linzess 72 mcg capsule 72 mcg PO DAILY 30 Days Qty: 30 5RF linaclotide 72 mcg capsule 72 mcg capsule 0RF zolpidem 10 mg tablet 10 mg PO QHS atorvastatin 20 mg Tablet 20 mg PO DAILY amlodipine 5 mg Tablet 5 mg PO DAILY potassium chloride 10 mEq Tablet Extended Release 10 meq PO DAILY hydrochlorothiazide 12.5 mg Capsule 12.5 mg PO DAILY duloxetine 60 mg Capsule,Delayed Release(Dr/Ec) 60 mg PO BID biotin 1,000 mcg Tablet,Chewable 1,000 mcg PO DAILY levothyroxine [Synthroid] 50 mcg tablet 100 mcg PO DAILY ibuprofen 400 mg tablet 400 mg PO TID Qty: 14 0RF loratadine 10 mg tablet 10 mg PO DAILY Qty: 20 0RF hydroxyzine HCl 25 mg tablet 25 mg PO BID PRN (Reason: itching) Qty: 14 0RF tramadol 50 mg tablet 50 mg PO Q8H PRN (Reason: pain) Qty: 14 0RF Follow-up/Referrals: Anthony Garcia MD [Physician] - 1 Week (Knee pain ) Betty,ALEKSANDRA Hunter [Primary Care Provider] -
--- OUTSIDE RECORDS SUMMARY | 2024-10-14 14:18 | XMS_ITS | Encounter Summary ---
Author Organization [facility] Healthcare Address [address] [place] [address] Care Team Providers Care Shading Painter Name Role Phone Yesi Cook DPT Unavailable Unavailable Shanna Oakes NP Primary Care Provider [phone] Tracy Hernández MECHANICAL ADJUSTER Primary Care Provider [phone] Encounter Details Date Type Department Care Team (Late st Contact Info) Description 12/28/2019 Telephone [facility] [address] [place] [address] Melanie Del Rio, Social History Tobacco Use [...] on file Legal Sex Female 11:38 PM HEAVY EQUIPMENT SUPERVISOR Gender Identity Female 08/02/2019 9:59 AM CDT Sexual Orientation Straight 06/03/2018 6: 51 PM CDT documented as of this encounter Plan of Treatment Not on file documented as of this encounter Visit Diagnoses Not on filedocumented in this encounter Care Teams Shading Painter Relationship Specialty Start Date End Date Shanna Oakes NP PCP - General Internal Medicine 12/09/19 07/21/24 Tracy Hernández NP [address] [address] PCP - General Family Medicine 07/22/24 Yesi Cook, VENITAT Physical Therapist Physical Therapy 07/30/17 03/06/20 documented as of this encounter
--- OUTSIDE RECORDS SUMMARY | 2024-10-14 14:18 | XMS_ITS | Encounter Summary ---
Author Organization [facility] Address [address] [place] [address] Phone Care Team Providers Care Bookkeeping Machine Operator Name Role Phone Matt Painting MD Primary Care Provider [phone] Tyesha Abarca DPT Unavailable Unavailable Yesi Cook DPT Unavailable Unavailable Renetta Pearl MA Unavailable [phone] Vernon Hernandez RN Unavailable [phone] Vernon Hernandez RN Unavailable [phone] Renetta Pearl MA Unavailable [phone] Shanna Oakes MATERIAL SPECIALIST Primary Care Provider [phone] Tracy Hernández MATERIAL SPECIALIST Primary Care Provider [phone] Encounter Details Date Type Department Care Team (Late st Contact Info) Description 04/15/2017 Orders Only [facility] ProviderChente MD [facility] [place] [address] Social History Tobacco Use Types Packs/Day Years Used Date Smoking Tobacco: Never Smokeless Tobacco: Never Alcohol Use Standard Drinks/Week Comments No 0 (1 standard drink = 0.6 oz pur e alcohol) Comments Unknown Sex and Gender Information Value Date Recorded Sex Assigned at Not on file Legal Sex Female 11:38 PM DAMPER WORKER Gender Identity Female 08/02/2019 9:59 AM CDT Sexual Orientation Straight 06/03/2018 6: 51 PM CDT documented as of this encounter Plan of Treatment Not on file documented as of this encounter Procedures Procedure Name Priority Date/Time Associated Diagnosis Comments DISCHARGE LABORATORY CUMULATIVE REPORT 04/15/2017 12:00 AM DAMPER WORKER documented in this encounter Results * DISCHARGE LABORATORY CUMULATIVE REPORT (04/15/2017 12:00 AM DAMPER WORKER) Narrative 04/15/2017 12:00 AM DAMPER WORKER Ordered by an unspecified provider. us Historical Provider LAB BLOOD ORDERABLES Arline l Result documented in this encounter Visit Diagnoses Not on filedocumented in this encounter Care Teams Bookkeeping Machine Operator Relationship Specialty Start Date End Date Matt Painting MD [address] [facility] [address] [place] [address] PCP - General 05/31/16 12/08/19 Shanna Oakes NP [address] [place] [address] [address] [place] [address] PCP - General Internal Medicine 12/09/19 07/21/24 Tracy Hernández NP [address] [facility] [address] [place] [address] PCP - General Family Medicine 07/22/24 Tyesha Abarca DPT Physical Therapist Physical Therapy 04/30/17 02/08/18 Yesi Cook DPT Physical Therapist Physical Therapy 07/30/17 03/06/20 Renetta Pearl MA [address] [place] [address] [address] [place] [address] ACO Care Router Tender 12/15/17 12/31/17 Vernon Hernandez, OPHELIA [address] [place] [address] [address] [place] [address] Silverlight Developer 01/01/18 02/11/18 Vernon Hernandez RN [address] [facility] [address] [place], [place] [id number] [facility] Outpatient Liquid Floor And Wall Applier 07/20/18 10/15/18 Renetta Pearl MA [address] [facility] [address] [place], [place] [id number] ACO Care Router Tender 07/21/18 07/21/18 documented as of this encounter
--- OUTSIDE RECORDS SUMMARY | 2024-10-14 14:18 | XMS_ITS | Encounter Summary ---
Author Organization [facility] Address [address] [place] [address] Care Team Providers Care Line Repairer Name Role Phone Matt Painting MD Primary Care Provider [phone] Yesi Cook DPT Unavailable Unavailable Vernon Hernandez RN Unavailable [phone] Renetta Pearl MA Unavailable [phone] Shanna Oakes AUGER MILL OPERATOR Primary Care Provider Tracy Hernández AUGER MILL OPERATOR Primary Care Provider [phone] Encounter Details Date Type Department Care Team (Late st Contact Info) Description 06/24/2018 Documentation [facility] Case Management [address] [place] [id number] Opal Marsh MSW Social History Tobacco Use Types Packs/Day Years Used Date Smoking Tobacco: Never Smokeless Tobacco: Never Alcohol Use Standard Drinks/Week Comments No 0 (1 standard drink = 0.6 oz pur e alcohol) Comments No Sex and Gender Information Value Date Recorded Sex Assigned at Not on file Legal Sex Female 11:38 PM RESERVATIONS AGENT Gender Identity Female 08/02/2019 9:59 AM [...] [facility] a [facility] Secondary choice is the [facility] in [place]. Pt informed that the referral will be sent upon admission for placement if PT recs SNF. SW will followafter surgery. documented in this encounter Plan of Treatment Not on file documented as of this encounter Visit Diagnoses Not on filedocumented in this encounter Care Teams Line Repairer Relationship Specialty Start Date End Date Matt Painting MD [address] [facility] [address] [address] PCP - General 05/31/16 12/08/19 Shanna Oakes NP [address] [place] [address] [address] [place] [address] PCP - General Internal Medicine 12/09/19 07/21/24 Tracy Hernández NP [address] [facility] [address] [place] [address] PCP - General Family Medicine 07/22/24 Yesi Cook DPT Physical Therapist Physical Therapy 07/30/17 03/06/20 Vernon Hernandez RN [address] [place], [place] [address]R[address] [address] [facility] Outpatient Bottom Sander 07/20/18 10/15/18 Renetta Pearl, SONIA [address] [place] [address] ACO Care Ripsaw Grader 07/21/18 07/21/18 documented as of this encounter
--- OUTSIDE RECORDS SUMMARY | 2024-10-14 14:18 | XMS_ITS | Encounter Summary ---
Author Organization [facility] Address [address] [place] [address] Phone Care Team Providers Care Sheet Metal Duct Installer Name Role Phone Matt Painting MD Primary Care Provider [phone] Tyesha Abarca DPT Unavailable Unavailable Yesi Cook DPT Unavailable Unavailable Renetta Pearl MA Unavailable [phone] Vernon Hernandez RN Unavailable [phone] Vernon Hernandez RN Unavailable [phone] Renetta Pearl MA Unavailable [phone] Shanna Oakes CROP ROLLER Primary Care Provider [phone] Tracy Hernández CROP ROLLER Primary Care Provider [phone] Encounter Details Date Type Department Care Team (Late st Contact Info) Description 06/12/2017 Orders Only [facility] ProviderChente [place] [address] Social History Tobacco Use Types Packs/Day Years Used Date Smoking Tobacco: Never Smokeless Tobacco: Never Alcohol Use Standard Drinks/Week Comments No 0 (1 standard drink = 0.6 oz pur e alcohol) Comments Unknown Sex and Gender Information Value Date Recorded Sex Assigned at Not on file Legal Sex Female 11:38 PM LOG SORTER Gender Identity Female 08/02/2019 9:59 AM CDT [...] on filedocumented in this encounter Care Teams Sheet Metal Duct Installer Relationship Specialty Start Date End Date Matt Painting MD [address] [facility] [address] [place] [address] PCP - General 05/31/16 12/08/19 Shanna Oakes NP [address] [facility] [address] [place] [address] PCP - General Internal Medicine 12/09/19 07/21/24 Tracy Hernández NP [address] [facility] [address] [place] [address] PCP - General Family Medicine 07/22/24 Tyesha Abarca DPT Physical Therapist Physical Therapy 04/30/17 02/08/18 Yesi Cook DPT Physical Therapist Physical Therapy 07/30/17 03/06/20 Renetta Pearl MA [address] [facility] [address] [place] [address] ACO Care Customer Professional 12/15/17 12/31/17 Vernon Hernandez, OPHELIA [address] [facility] [address] [place] [address] Staff Toxicologist 01/01/18 02/11/18 Vernon Hernandez RN [address] [facility] [address] [place] [address] [facility] Outpatient Vehicle Service Attendant 07/20/18 10/15/18 Renetta Pearl MA [address] [facility] [address] [place], [place] [id number] ACO Care Customer Professional 07/21/18 07/21/18 documented as of this encounter
--- OUTSIDE RECORDS SUMMARY | 2024-10-14 14:18 | XMS_ITS | Continuity of Care Document ---
Author Organization [facility] Address [address] [place] [address] Phone Care Team Providers Care Home Theatre Technician Name Role Phone Lee Wright MD Unavailable Unavailable Procedures Procedure Date INJ SPINE CERV/THOR W/ IMAGING GUIDANCE SURGICAL TRAY LOW OSMOLAR CONTRAST (200 TO 299 MG IODI NE) Injection, Triamcinolone Acetonide, 10mg Advance Directives Directive Yes / No Effective Date File Name No Information Encounters Encounter Description Practice Location Reason(s) For Visit Diagnoses Date Provider Providers Copied on Encounter [facility], [address], [place], [place], [address], tel:[phone] [facility] No Information Kyle Julian [address] [place], [place], [id number], . tel:[phone] [facility], [address], [place], [place], [address], tel:[phone] [facility] No Information Kyle Julian [address] [place], [place], [address], . tel:[phone] Referring Provider: Manuela Shah [address] [place] [address], [place], [address]. tel:[phone] Family History Family Member Type Diagnosis Age At Onset No Information Payers Payer name Insurance type Covered republican ID Authoriza tion(s) MEDICARE [id number] [facility] [id number] Social History Type Description Quantity Date Captured [...]
--- OUTSIDE RECORDS SUMMARY | 2024-10-14 14:19 | XMS_ITS | Encounter Summary ---
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 Warm transferred. Does message need to be routed? No Reason for Warm Transfer: Symptoms: Patient has Red flag symptoms, flat folder evaluated patient and directed patient to call [...] Tract Infection on Antibiotic Follow-up Call - [id number] * Telephone Encounter - Odette Zimmer RN [...] on filedocumented in this encounter Care Teams Patrol Mother Relationship Specialty Start Date End Date Tracy Hernández NP [address] [address] PCP - General Family Medicine 07/22/24 documented as of this encounter
--- OUTSIDE RECORDS SUMMARY | 2024-10-14 14:19 | XMS_ITS | Encounter Summary ---
Author Organization [facility] Healthcare Address [address] [place] [address] Care Team Providers Care Rail Tractor Operator Name Role Phone Matt Painting MD Primary Care Provider [phone] Tyesha Abarca DPT Unavailable Unavailable Yesi Cook DPT Unavailable Unavailable Renetta Pearl MA Unavailable [phone] Vernon Hernandez RN Unavailable [phone] Vernon Hernandez RN Unavailable [phone] Renetta Pearl MA Unavailable [phone] Shanna Oakes FACILITIES SUPERVISOR Primary Care Provider [phone] Tracy Hernández FACILITIES SUPERVISOR Primary Care Provider [phone] Encounter Details Date Type Department Care Team (Late st Contact Info) Description 11/28/2017 Documentation [facility] Case Management [address] [place] [address] Opal Marsh MSW Social History Tobacco Use Types Packs/Day Years Used Date Smoking Tobacco: Never Smokeless Tobacco: Never Alcohol Use Standard Drinks/Week Comments No 0 (1 standard drink = 0.6 oz pur e alcohol) Comments Unknown Sex and Gender Information Value Date Recorded Sex Assigned at Not on file Legal Sex Female 11:38 PM PALM AND BACK FORGER Gender Identity Female 08/02/2019 9:59 AM CDT [...] on filedocumented in this encounter Care Teams Rail Tractor Operator Relationship Specialty Start Date End Date Matt Painting MD [address] [facility] [address], [place] [address] PCP - General 05/31/16 12/08/19 Shanna Oakes NP [address] [place] [address] [address] [place] [address] PCP - General Internal Medicine 12/09/19 07/21/24 Tracy Hernández NP [address] [facility] [address] [place] [address] PCP - General Family Medicine 07/22/24 Tyesha Abarca, KIMBERLY Physical Therapist Physical Therapy 04/30/17 02/08/18 Joyce, Yesi E., DPT Physical Therapist Physical Therapy 07/30/17 03/06/20 Renetta Pearl MA [address] [place] [address] [employer] Care Tube Depatcher 12/15/17 12/31/17 Vernon Hernandez RN [address] [place] [address] [address] [place], [place] [id number] Insulation Board Back Tender 01/01/18 02/11/18 Vernon Hernandez RN [address] [place] [address] [address] [place], [place] [id number] [facility] Outpatient Emergency Planning And Response Manager 07/20/18 10/15/18 Renetta Pearl MA [address] [place] [address] ACO Care Tube Depatcher 07/21/18 07/21/18 documented as of this encounter
--- OUTSIDE RECORDS SUMMARY | 2024-10-14 14:19 | XMS_ITS | Clinical Summary ---
Author Organization [facility] Address [address] [place] [address] Care Team Providers Care Reefer Truck Driver Name Role Phone Tracy Hernández NP Primary Care Provider [phone] Allergies Active Allergy Reactions Criticality Noted Date [...] 1 tablet (100 mcg total) by mouth apprise counselor before breakfast 90 tablet 07/24/19 25 025 [...] zolpidem. Assessment & Plan (03/30/2024 12:53 PM POULTRY FEED SUPERVISOR): Stable, continue Zolpidem Assessment & Plan (12/29/2023 1:26 PM CDT): Worse. Will switch to an ER Zolpidem. Dermatochalasis of both upper eyelids 10/15/2022 Assessment & Plan (10/16/2023 4:47 PM CDT): Pt not bothered, monitor Assessment & Plan (10/15/2022 12:55 PM CDT): Not v/s, monitor Atherosclerosis of aorta 05/09/2022 Overview (05/09/2022): 05/09/21- xray Assessment & Plan (03/30/2024 12:52 PM POULTRY FEED SUPERVISOR): Stable, continue aspirin and Atorvastatin Assessment & Plan (09/16/2023 10:46 AM CDT): Stable, continue Atorvastatin and aspirin. Assessment & Plan (01/13/2023 10:31 AM POULTRY FEED SUPERVISOR): Stable, continue aspirin and Atorvastatin Encounter for Medicare annual wellness exam 05/02 Assessment & Plan (03/30/2024 12:49 PM POULTRY FEED SUPERVISOR): Please see below for a list of your medical conditions and recommendations. Assessment & Plan (01/13/2023 10:30 AM POULTRY FEED SUPERVISOR): Please see below for a list of [...] 020 Assessment & Plan (03/30/2024 12:53 PM POULTRY FEED SUPERVISOR): Stable, continue aspirin and Atorvastatin Assessment & Plan (09/16/2023 10:47 AM CDT): Stable, continue Atorvastatin and aspirin Assessment & Plan (01/13/2023 10:32 AM POULTRY FEED SUPERVISOR): Stable, continue aspirin and Atorvastatin Assessment & Plan (01/03/2022 1:32 PM CDT): Stable, continue aspirin and Atorvastatin. Assessment & Plan (05/03/2021 11:10 AM POULTRY FEED SUPERVISOR): Stable, continue Atorvastatin and aspirin Assessment & [...] UTI Assessment & Plan (04/15/2017 12:43 PM POULTRY FEED SUPERVISOR): Having increased urinary frequency but no pain, feels similar to UTIs in the past. UA today with just trace blood, negative for leuks and nitrites Advised to keep hydrated and will send UA for culture BMI 28.0-28.9,adult 04/15/2017 Assessment & Plan (10/08/2017 11:47 AM CDT): Try to cut back on calories. Most people should eat between 9444-1578 calories to lose weight. Decrease your carbohydrate [...] help. Assessment & Plan (04/15/2017 11:14 AM POULTRY FEED SUPERVISOR): BMI Follow-up includes: nutrition counseling and exercise [...] management. Assessment & Plan (05/03/2021 11:10 AM POULTRY FEED SUPERVISOR): Stable, continue Gabapentin and Duloxetine Assessment & Plan (12/19/2019 7:35 PM CDT): Stable, continue duloxetine Assessment & Plan (06/14/2019 8:10 AM CDT): Requires chronic duloxetine and gabapentin therapy. Does see pain management at times. Assessment & Plan (04/15/2017 12:40 PM POULTRY FEED SUPERVISOR): Improved and using lidocaine patches which help. Suspect this is more from bulging disc than it is from UTI and patient agrees. Major depression single episode, in partial amanda ssion 08/28/2016 Assessment & Plan (03/30/2024 12:53 PM POULTRY FEED SUPERVISOR): Stable, continue Duloxetine Assessment & Plan (12/29/2023 1:26 PM CDT): Stable, continue Duloxetine Assessment & Plan (01/13/2023 10:33 AM POULTRY FEED SUPERVISOR): Stable, continue Duloxetine Assessment & Plan (09/10/2022 3:17 PM CDT): Improved. Continue Duloxetine Assessment & Plan (05/03/2022 2:59 PM POULTRY FEED SUPERVISOR): Stable, continue Duloxetine Assessment & Plan (01/03/2022 1:30 PM CDT): Intermittent. Continue Duloxetine. Assessment & Plan (05/03/2021 11:09 AM POULTRY FEED SUPERVISOR): Chronic and unchanged. Continue Duloxetine Assessment & [...] Duloxetine Assessment & Plan (02/16/2018 1:25 PM POULTRY FEED SUPERVISOR): Doing well with the clonazepam and duloxetine Assessment & Plan (04/15/2017 12:42 PM POULTRY FEED SUPERVISOR): Still teary in the room over the [...] disease Assessment & Plan (03/30/2024 12:49 PM POULTRY FEED SUPERVISOR): The blood pressure is adequately controlled. Ideally, [...] way. Assessment & Plan (01/13/2023 10:30 AM POULTRY FEED SUPERVISOR): The blood pressure is adequately controlled. Ideally, [...] way. Assessment & Plan (05/03/2022 2:57 PM POULTRY FEED SUPERVISOR): The blood pressure is adequately controlled. Ideally, [...] way. Assessment & Plan (05/03/2021 11:08 AM POULTRY FEED SUPERVISOR): The blood pressure is adequately controlled. Ideally, [...] Future Assessment & Plan (03/30/2024 12:50 PM POULTRY FEED SUPERVISOR): Stable, continue levothyroxine Assessment & Plan (12/29/2023 1:24 PM CDT): Stable, continue levothyroxine Assessment & Plan (09/16/2023 10:46 AM CDT): Stable? Will recheck today. Assessment & Plan (01/13/2023 10:31 AM POULTRY FEED SUPERVISOR): Stable, continue levothyroxine. Assessment & Plan (09/10/2022 3:15 PM CDT): Stable? Will recheck today. Assessment & Plan (05/03/2022 2:57 PM POULTRY FEED SUPERVISOR): Stable? Will recheck today. Assessment & Plan (01/03/2022 1:24 PM CDT): Stable, continue levothyroxine Assessment & Plan (05/03/2021 11:08 AM POULTRY FEED SUPERVISOR): Stable? Continue levothyroxine. Assessment & Plan (11/08/2020 [...] regimen. Assessment & Plan (03/30/2024 12:49 PM POULTRY FEED SUPERVISOR): Continue low fat eating- limit fried foods, [...] prescribed. Assessment & Plan (01/13/2023 10:30 AM POULTRY FEED SUPERVISOR): Continue low fat eating- limit fried foods, [...] prescribed. Assessment & Plan (05/03/2022 2:58 PM POULTRY FEED SUPERVISOR): Continue low fat eating- limit fried foods, [...] day. Assessment & Plan (05/03/2021 11:09 AM POULTRY FEED SUPERVISOR): Continue low fat eating- limit fried foods, [...] attacks Assessment & Plan (03/30/2024 1:37 PM POULTRY FEED SUPERVISOR): Not controlled, continue Lorazepam as needed Assessment & Plan (01/13/2023 10:32 AM POULTRY FEED SUPERVISOR): Stable, continue Duloxetine and Lorazepam as needed. Assessment & Plan (09/10/2022 3:18 PM CDT): Improved. Continue Duloxetine and uses Lorazepam as needed. Try not take this medication daily or mcfp is at all possible as it can lead to dependence/addiction/tolerance, memory issues and may cause depression terminal clerk. Keep this medication out of the reach of other people. Do not drive or drink alcohol with this medication. Assessment & Plan (05/03/2022 3:00 PM POULTRY FEED SUPERVISOR): Chronic and unchanged. Continue Lorazepam as needed. [...] disease) Assessment & Plan (03/30/2024 12:53 PM POULTRY FEED SUPERVISOR): Try to eat smaller more frequent meals. [...] weight. Assessment & Plan (01/13/2023 10:32 AM POULTRY FEED SUPERVISOR): Try to eat smaller more frequent meals. [...] weight. Assessment & Plan (05/03/2022 2:59 PM POULTRY FEED SUPERVISOR): Try to eat smaller more frequent meals. [...] weight. Assessment & Plan (05/03/2021 11:09 AM POULTRY FEED SUPERVISOR): Try to eat smaller more frequent meals. [...] today. Assessment & Plan (03/30/2024 12:53 PM POULTRY FEED SUPERVISOR): Continue to increase water intake. Limit use [...] weight. Assessment & Plan (01/13/2023 10:32 AM POULTRY FEED SUPERVISOR): Continue to increase water intake. Limit use of NSAIDs including Ibuprofen, Aleve, Motrin, etc. Continue aerobic exercise and maintain a healthy weight. Assessment & Plan (09/10/2022 3:20 PM CDT): Continue to increase water intake. Limit use of NSAIDs including Ibuprofen, Aleve, Motrin, etc. Continue aerobic exercise and maintain a healthy weight. Assessment & Plan (05/03/2022 3:00 PM POULTRY FEED SUPERVISOR): Continue to increase water intake. Limit use of NSAIDs including Ibuprofen, Aleve, Motrin, etc. Continue aerobic exercise and maintain a healthy weight. Assessment & Plan (01/03/2022 1:31 PM CDT): Continue to increase water intake. Limit use of NSAIDs including Ibuprofen, Aleve, Motrin, etc. Continue aerobic exercise and maintain a healthy weight. Assessment & Plan (05/03/2021 11:10 AM POULTRY FEED SUPERVISOR): Continue to increase water intake. Limit use [...] (06/12/2018): Added automatically from request for surgery [id number] Encounter for weight management 06/05/2018 07/22/2024 Dyslipidemia [...] needed Assessment & Plan (04/10/2018 4:07 PM POULTRY FEED SUPERVISOR): The patient has done very well overall [...] x-rays. Assessment & Plan (02/18/2018 11:58 AM POULTRY FEED SUPERVISOR): Treatment options were discussed. The patient would [...] on calories. Most people should eat between 5586-0103 calories to lose weight. Decrease your carbohydrate [...] on calories. Most people should eat between 5001-1240 calories to lose weight. Decrease your carbohydrate [...] 07/22/2024 Assessment & Plan (04/15/2017 12:41 PM POULTRY FEED SUPERVISOR): Will do ambulatory PT as she is [...] Department Care Team Description 09/20/2024 Orders Only [facility] Primary Care at [address] [phone] Tracy Hernández NP 09/20/2024 Orders Only [facility] Ophthalmology [address], [address] Pender for [facility] [place] [address] Jackie Mckeon, OD Encounter for observation for other suspected diseases and conditions ruled out (Primary Dx) 09/17/2024 12:32 PM CDT - 09/17/2024 11:59 PM CDT Hospital Encounter [address] [address] Frequent UTI Discharge Disposition: Discharge to home or self care 09/17/2024 12:30 PM CDT Lab [facility] Outpatient Lab at [address] [phone] 09/17/2024 Results Follow-Up [facility] Primary Care at [address] [phone] Tracy Hernández, TUBING OILER Basic metabolic panel, TSH, eGFR, Urine culture Urine, clean voided 09/16/2024 3:06 PM CDT - 09/16/2024 11:59 PM CDT Hospital Encounter [id number] [place] [address] Stage 3a chronic kidney disease (HCC); Acquired hypothyroidism Discharge Disposition: Discharge to home or self care 09/16/2024 3:00 PM CDT Lab [facility] Outpatient Lab at [address] [phone] 09/16/2024 2:00 PM CDT Office Visit [facility] Primary Care at [address] [phone] Tracy Hernández NP Stage 3a chronic kidney disease (HCC) (Primary Dx); Frequent UTI; Acquired hypothyroidism 08/30/2024 Nurse Triage [facility] Primary Care at [address] [phone] Tracy Hernández TUBING OILER 08/30/2024 Orders Only [facility] Primary Care at [address] [phone] Tracy Hernández NP 08/30/2024 Telephone [facility] Primary Care at [address] [phone] Tracy Hernández NP Med Refill 08/30/2024 Telephone [facility] [address], [place] [phone] Shanna Oakes NP 08/27/2024 Telephone [facility] [address] [place] [address] Manuela Shah NP 08/12/2024 Telephone [facility] Primary Care at [address] [phone] Tracy Hernández NP Symptom Based Call; Medical Question/Miscellaneou s 08/09/2024 Orders Only [facility] Primary Care at [address] [phone] Tracy Hernández NP 08/02/2024 Nurse Triage [facility] Primary Care at [address] [phone] Tracy Hernández NP 07/23/2024 Results Follow-Up [facility] at [address] [phone] Tracy Hernández NP Comprehensive metabolic panel, Thyroid Function Posey, Hemoglobin A1c, Additional followed-up results: 8 07/22/2024 10:15 AM CDT Lab [facility] Outpatient Lab at [address] [phone] 07/22/2024 10:12 AM CDT - 07/22/2024 11:59 PM CDT Hospital Encounter [address] [address] Hypertensive renal disease; Acquired hypothyroidism; Elevated glucose; Hypercholesterolemia Discharge Disposition: Discharge to home or self care 07/22/2024 9:30 AM CDT Office Visit [facility] Primary Care at [address] [phone] Tracy Hernández NP Acquired hypothyroidism (Primary Dx); Hypertensive renal disease; Hypercholesterolemia; Elevated glucose; Gastroesophageal reflux disease without esophagitis; Stage 3a chronic kidney disease (HCC); Generalized anxiety disorder with panic attacks; Major depression single episode, in partial remission; Primary insomnia 07/22/2024 Telephone [facility] [address] [place] [phone] Shanna Oakes NP Medical Question/Miscellaneou s [...] kidney disease) stage 3, GFR 30-59 ml/min ([facility]) Ocular migraine 03/13/2015 Cataract removed Brain [...] on file Legal Sex Female 11:38 PM POULTRY FEED SUPERVISOR Gender Identity Female 08/02/2019 9:59 AM [...] 12/22/2014, 05/01 Medical Devices Implanted Type Area Gastroenterology Nurse Practitioner Device Identifier Shelf Expiration Date Model / Serial / Lot [employer] 6191-1-010 Simplex P Radiopaque Full Dose Cement Bone Sterile - [id number] Implanted:Qty: 1 on 07/15/2018 by Irving Mccauley MD at [facility] Bone Cement Left: Knee [employer] 07/31/2020 6191-1-010 / / [id number] [employer] 6191-1-010 Simplex P Radiopaque Full Dose Cement Bone Sterile - [id number] Implanted:Qty: 1 on 07/15/2018 by Irving Mccauley MD at [facility] Bone Cement Left: Knee [employer] 07/31/2020 6191-1-010 / / [id number] Baseplate Shoulder 15mm Length - [id number] Implanted:Qty: 1 on 12/10/2017 by Tayo Murray DO at [facility] Right: Shoulder [employer] Rhea 09/30/2022 GBP-0960-0 30-15 / / [id number] Screw 5.5mm 20mm Length Shoulder - [id number] Implanted:Qty: 1 on 12/10/2017 by Tayo Murray DO at [facility] Right: Shoulder [employer] Rhea 07/29/2022 SCW-0960-0 55-20 / / [id number] Screw And Cap 4.5mm 15mm Shoulder - [id number] Implanted:Qty: 2 on 12/10/2017 by Tayo Murray DO at [facility] Right: Shoulder [employer] Rhea 08/28/2020 SSC-0960-0 45-15 / / [id number] Screw And Cap 4.5mm 20mm Shoulder - [id number] Implanted:Qty: 1 on 12/10/2017 by Tayo Murray DO at [facility] Right: Shoulder [employer] R[employer] 06/01/2022 SSC-0960-0 45-20 / / [id number] Screw And Cap 4.5mm 25mm Shoulder - [id number] Implanted:Qty: 1 on 12/10/2017 by Tayo Murray DO at [facility] Right: Shoulder [employer] Rhea 05/30/2022 SSC-0960-0 45-25 / / [id number] [employer] Shoulder 5mm Eccentric - [id number] Implanted:Qty: 1 on 12/10/2017 by Tayo Murray DO at [facility] Right: Shoulder [employer] R[employer] 11/30/2021 GLS-0960-0 5E / / [id number] [employer] Rhea [id number] 1 Titan 16.5mm 12.1mm 90.4mm Press Fit 12 Spline Modular - [id number] Implanted:Qty: 1 on 12/10/2017 by Tayo Murray DO at [facility] Right: Shoulder [employer] 09/30/2021 STEM-0920- 025-11 / / [id number] Body Shoulder Small Reverse Gsu-3338-77tpi - [id number] Implanted:Qty: 1 on 12/10/2017 by Tayo Murray DO at [facility] Right: Shoulder [employer] 04/02/2022 BBS-0960-2 1SML / / [id number] Liner +0mm 9.6mm Standard 20mm 2.7mm 38.7mm Shoulder Humeral - [id number] - [id number] Implanted:Qty: 1 on 12/10/2017 by Tayo Murray DO at [facility] Right: Shoulder [employer] 04/30/2021 LNR-0960-0 0S / LNR-0960-0 0S / [id number] [employer]/O rtho [id number] Shannan Ii [id number] Knee Oval Component Patellar Uhmwpe - [id number] Implanted:Qty: 1 on 07/15/2018 by Irving Mccauley MD at [facility] Left: Knee [employer]/ Ortho [id number] 04/25/2028 [id number] / / [id number] [employer]/O rtho [id number] Journey Knee Left 3 Baseplate Tibial - [id number] Implanted:Qty: 1 on 07/15/2018 by Irving Mccauley MD at [facility] Left: Knee [employer]/ Ortho [id number] 09/23/2027 [id number] / / [id number] [employer]/O rtho [id number] Journey Ii Cruciate Retain Knee Left 4 Component Femoral Cocr - [id number] Implanted:Qty: 1 on 07/15/2018 by Irving Mccauley MD at [facility] Left: Knee [employer]/ Ortho [id number] 12/06/2027 [id number] / / [id number] [employer]/O rtho [id number] Journey Ii Left 3-4 Deep [facility] Insert Articular Xlpe - [id number] Implanted:Qty: 1 on 07/15/2018 by Irving Mccauley MD at [facility] Left: Knee [employer]/ Ortho [id number] 03/09/2026 [id number] / / [id number] Explanted Type Area Gastroenterology Nurse Practitioner Device Identifier Shelf Expiration Date Model / Serial / Lot [employer] Lab42 [id number] 2mm 150mm Elbow Shoulder Guide Pin Orthopedic - [id number] Explanted:Qty: 2 on 12/10/2017 at [facility] Right: Shoulder Integra Lab42 [id number] / / Procedures Procedure Name Priority [...] bacterial lashonda. (.) Comment:Testing performed by : [facility], [address]., [address] Organism CITROBACTER FREUNDII COMPLEX [facility] Organism PLUS GROWTH OF CLINICALLY INSIGNIFICANT LASHONDA. [facility] Urine, clean voided 09/17/2024 12:32 PM CDT 09/18/2024 12:16 AM CDT Narrative [facility] - 09/19/2024 3:50 PM CDT Testing performed by [facility] Microbiology Laboratory ([phone]) Organism Antibiotic Method Susceptibility Citrobacter freundii complex [...] OR DERABLES Final Result Performing Organization Address City/[facility] Co de Phone Number AAMIR ALAS [address] [employer] [place], [place] [id number] * eGFR (09/16/2024 3:06 PM CDT) eGFR [...] ORDERABLES Final Re sult Performing Organization Address City/[facility]/ZIP Co de Phone Number AAMIR ALAS [address] [address] [place] [address] * TSH (09/16/2024 3:06 PM CDT) Thyroid Stimulating Hormone 3.35 0.30 - 4.20 mcIUnit/mL Blood 09/16/2024 3:06 PM CDT 09/16/2024 10:39 PM CDT Tracy Hernández NP LAB BLOOD ORDERABLES Final Re sult AAMIR ALAS [address] [place] [address] * Basic metabolic panel (09/16/2024 3:06 PM CDT) Sodium 139 135 - 145 mmol/L Potassium, pl 4.1 3.3 - 4.9 mmol/L [facility] Chloride 100 97 - 110 mmol/L [facility] CO2 26 22 - 32 mmol/L [facility] Anion gap 13 2 - 15 mmol/L [facility] BUN 24 6 - 25 mg/dL [facility] Creatinine 0.74 0.60 - 1.10 mg/dL [facility] Glucose 136 70 - 199 mg/dL [facility] Comment: Interpretive Data Fasting glucose >/= 126 [...] 2022. Calcium 8.8 8.5 - 10.3 mg/dL [facility] Blood 09/16/2024 3:06 PM CDT 09/16/2024 10:39 PM CDT Tracy Hernández NP LAB BLOOD ORDERABLES Final Re sult AAMIR ALAS [address] [place] [address] * eGFR (07/22/2024 10:12 AM CDT) eGFR [...] NP LAB BLOOD ORDERABLES Final Re sult [facility] [address] [address] Department [place] [address] * (ABNORMAL) Differential, auto (07/22/2024 10:12 AM CDT) Neutrophil abs 4.47 1.50 - 6.50 K/cumm Imm gran abs 0.03 0.00 - 0.10 K/cumm [facility] Lymphocyte abs 2.26 0.80 - 3.30 K/cumm [facility] Monocyte abs 0.86(H) 0.20 - 0.80 K/cumm [facility] Eosinophil abs 0.16 0.00 - 0.50 K/cumm [facility] Basophil abs 0.05 0.00 - 0.10 K/cumm [facility] Neutrophil pct 57.1 % [facility] Comment: Interpretive Data Percent cell [...] ORDERABLES Final Re sult Performing Organization Address [facility] Co de Phone Number [facility] [address] [address] Department [employer] [place], [place] [id number] * (ABNORMAL) Thyroid Function Posey (07/22/2024 10:12 AM CDT) TSH 20.00(H) 0.30 - 4.20 mcIUnit/mL Blood 07/22/2024 10:1 2 AM CDT 07/22/2024 9:19 PM CDT Tracy Hernández NP LAB BLOOD ORDERABLES Final Re sult Performing Organization Address [facility] Co de Phone Number [facility] [address] [address] [place] [address] * (ABNORMAL) Urinalysis reflex to microscopic and [...] tendency for uric acid stone formation. Source: [facility] Current Interpretive Data was last revised [...] Reflex to microscopic UA will be performed. [facility] Urine, clean voided 07/22/2024 10:12 AM CDT 07/22/2024 9:19 PM CDT Tracy Hernández NP LAB MICROBIOLOGY - GENERAL OR DERABLES Final Result [facility] [address] [address] Department [place] [address] * (ABNORMAL) CBC with auto [...] ORDERABLES Final Re sult Performing Organization Address [facility] Co de Phone Number AAMIR ALAS [address] [place] [address] * (ABNORMAL) Urinalysis, microscopic only (07/22/2024 10:12 AM CDT) WBC, ur >50(A) 0 - 5 /HPF RBC, ur 21-50(A) 0 - 2 /HPF [facility] Bacteria, ur 4+(A) [facility] Amorphous crystals, ur 1+(A) [facility] Culture Reflex Comment Reflex to urine culture will be performed. [facility] Urine, clean voided 07/22/2024 10:12 AM CDT 07/22/2024 9:19 PM CDT Tracy Hernández TUBING OILER LAB URINE ORDERABLES Final Re sult Performing Organization Address [facility] Co de Phone Number AAMIR ALAS [address] [address] [place] [address] * (ABNORMAL) Urine culture Urine, clean voided (07/22/2024 10:12 AM CDT) Report Final Report: Greater than or equal to 100,000 colonies/mL of Escherichia coli Plus growth of clinically insignificant bacterial lashonda. (.) Comment:Testing performed by : [facility], [address] [place]., [address] Organism ESCHERICHIA COLI [facility] Organism PLUS GROWTH OF CLINICALLY INSIGNIFICANT LASHONDA. AAMIR Urine, clean voided 07/22/2024 10:12 AM CDT 07/23/2024 2:19 AM CDT Narrative AAMIR - 07/25/2024 12:17 PM CDT Urine culture reflexed based upon urinalysis results. Testing performed by [facility] Microbiology Laboratory ([phone]) Organism Antibiotic Method Susceptibility Escherichia coli Ampicillin [...] OR DERABLES Final Result Performing Organization Address City/[facility] Co de Phone Number AAMIR [address] [address] [place] [address] * T4, free (07/22/2024 10:12 AM CDT) Free T4 1.09 0.90 - 1.70 ng/dL Blood 07/22/2024 10:1 2 AM CDT 07/22/2024 9:30 PM CDT Tracy Hernández NP LAB BLOOD ORDERABLES Final Re sult Performing Organization Address City/[facility] Co de Phone Number AAMIR [address] [address] [place], [place] [id number] * (ABNORMAL) Hemoglobin A1c (07/22/2024 10:12 AM CDT) Hgb A1C 5.9(H) 4.0 - 5.6 % Estimated Average Glucose 123 mg/dL AAMIR ALAS Comment: The ADA recommends reporting an estimated Average Glucose (eAG) with all Hemoglobin A1c results using the equation derived from a study of 507 normal and diabetic adults. Minority populations were underrepresented and children were not included. (Diabetes Care 31:3739-5946, 2008). The eAG is not equivalent to a fasting glucose. Blood 07/22/2024 10:1 2 AM CDT 07/22/2024 9:19 PM CDT Tracy Hernández NP LAB BLOOD ORDERABLES Final Re sult AAMIR [address] Department [place] [address] * (ABNORMAL) Lipid panel (07/22/2024 10:12 AM [...] CDT 07/22/2024 9:19 PM CDT Tracy Hernández TUBING OILER LAB BLOOD ORDERABLES Final Re sult CERNER [address] Department [place] [address] * Comprehensive metabolic panel (07/22/2024 10:12 AM [...] BLOOD ORDERABLES Final Re sult AAMIR ALAS [address] [address] [place] [address] * Dexa Axial Skeleton Bone Density 1 [...] Dual x-ray absorptiometry (DEXA) was performed using I AND [employer] system. GENERAL GUIDELINES: According to WHO guidelines, [...] Dual x-ray absorptiometry (DEXA) was performed using I AND [employer] system. GENERAL GUIDELINES: According to WHO guidelines, [...] to Health Maintenance Insurance MEDICARE COMMERCIAL GENERIC [facility] MEDICARE COMMERCIAL GENERIC MEDICARE COMMERCIAL GENERIC Advance Directives For more information, please contact: [phone] Documents on File Type Date Recorded Patient Md Allergy Immunology Expl anation ADVANCE DIRECTIVE 08/20/2019 2:35 PM Power of Media Relations Manager-Medical ADVANCE DIRECTIVE 07/15/2018 11:14 AM ADVANCE DIRECTIVE [...] 3:25 PM 12/13/2017 4:26 PM Care Teams Reefer Truck Driver Relationship Specialty Start Date End Date Tracy Hernández NP [address] [facility] [address] [place] [address] PCP - General Family Medicine 07/22/24
--- OUTSIDE RECORDS SUMMARY | 2024-10-14 14:19 | XMS_ITS | Encounter Summary ---
Author Organization [facility] Healthcare Address [address] [place] [address] Care Team Providers Care Raw Shellfish Preparer Name Role Phone Shanna Oakes NP Primary Care Provider [phone] Tracy Hernández MANUAL PLATE FILLER Primary Care Provider [phone] Encounter Details Date Type Department Care Team (Late st Contact Info) Description 12/20/2020 Telephone [facility] - Interventional Radiology [address] [place] [address] Juanis Mejia RN Social History [...] on file Legal Sex Female 11:38 PM REGROOVER Gender Identity Female 08/02/2019 9:59 AM CDT Sexual Orientation Straight 06/03/2018 6: 51 PM CDT documented as of this encounter Plan of Treatment Not on file documented as of this encounter Visit Diagnoses Not on filedocumented in this encounter Care Teams Raw Shellfish Preparer Relationship Specialty Start Date End Date Shanna Oakes NP PCP - General Internal Medicine 12/09/19 07/21/24 Tracy Hernández NP [address] [address] PCP - General Family Medicine 07/22/24 documented as of this encounter
--- NOTE | 2024-10-14 15:36 | ED_ITS ---
HPI - General Adult General Chief complaint: Extremity Problem,Nontraumatic Stated complaint: R. knee swelling x 1 day Time Seen by Provider: 10/14/24 14:01 History of Present Illness HPI narrative: This is an 89-year-old female presenting with right knee pain. Patient says she has been having worsening knee pain over the last 3 months. She has been taking tramadol with mild relief. She now notes that it is swollen. She does not have any fevers. No redness or warmth to the joint. She has not seen an orthopedic surgeon for this. Patient's left knee has been replaced previously. Related Data Home Medications ?Medication ?Instructions ?Recorded ?Confirmed ?Last Taken ?Type amlodipine 5 mg tablet 5 mg PO DAILY 01/06/19 09/09/24 01/12/19 05:00 History 5 MG atorvastatin 20 mg tablet 20 mg PO DAILY 01/06/19 09/09/24 Unknown History biotin 1,000 mcg chewable tablet 1,000 mcg PO DAILY 01/06/19 09/09/24 Unknown History duloxetine 60 mg capsule,delayed 60 mg PO BID 01/06/19 09/09/24 Unknown History release hydrochlorothiazide 12.5 mg capsule 12.5 mg PO DAILY 01/06/19 09/09/24 Unknown History potassium chloride 10 mEq 10 meq PO DAILY 01/06/19 09/09/24 Unknown History tablet,extended release levothyroxine 50 mcg tablet 100 mcg PO DAILY 07/28/24 09/09/24 Unknown History (Synthroid) zolpidem 10 mg tablet 10 mg PO QHS 09/09/24 Unknown History Allergies Allergy/AdvReac Type Severity Reaction Status Date / Time ciprofloxacin Allergy Intermediate Other Verified 09/09/24 10:24 valsartan Allergy Unknown Other Verified 09/09/24 10:24 nitrofurantoin AdvReac Mild Nausea,Vomiting, Verified 09/09/24 10:24 Diarrhea sulfamethoxazole AdvReac Unknown UPSET Verified 09/09/24 10:24 STOMACH trimethoprim AdvReac Unknown UPSET Verified 09/09/24 10:24 STOMACH PMFSH Past Medical History Medical History (Updated 10/14/24 @ 15:39 by Tio Durán MD) History of recurrent UTIs Elevated fecal calprotectin Abnormal CT scan Abdominal pain Bloating Constipation Degenerative disc disease Hypothyroid Hyperlipidemia Migraine Hypertension Spinal stenosis Surgical History Surgical History History of hysterectomy Social History Social History Smoking status: Never smoker Gender identity (if verbalized by the patient): Female Exam Narrative: APPEARANCE: No apparent distress. Head: atraumatic. EYES: EOMI, NOSE: Atraumatic NECK: Trachea midline RESPIRATORY: No increased rate of breathing clear to auscultation CARDIOVASCULAR: RRR, ABDOMINAL: Non-distended MUSCULOSKELETAl: Focal exam of the left knee showed very mild swelling. No warmth or skin changes. Minimal pain on active and passive range of motion. Strength intact. +2 dp and tp pulses. NEURO: Alert. Moving 4/4 extremities SKIN:: Warm, dry. Normal color PSYCHIATRIC: Normal affect Course Vital Signs Vital signs: Vital Signs Temperature 97.3 F L 10/14/24 13:55 Pulse Rate 95 10/14/24 13:55 Respiratory Rate 18 10/14/24 13:55 Blood Pressure 134/81 10/14/24 13:55 Pulse Oximetry 100 10/14/24 13:55 Oxygen Delivery Room Air 10/14/24 13:55 Temperature 97.3 F L 10/14/24 13:55 Pulse Rate 95 10/14/24 13:55 Respiratory Rate 18 10/14/24 13:55 Blood Pressure 134/81 10/14/24 13:55 Pulse Oximetry 100 10/14/24 13:55 Oxygen Delivery Room Air 10/14/24 13:55 Medical Decision Making [facility] Narrative Medical decision making narrative: 81-year-old female presenting with 3 months of right knee pain. Physical exam showed a normal appearing knee with no significant effusion or warmth. No concern for septic arthritis. X-ray showed degenerative changes. Venous ultrasound negative. Patient treated with Tylenol and oxycodone. Discharged orthopedic follow-up. Given return precautions. Differential diagnosis, osteoarthritis, inflammatory arthritis, septic arthritis Vital Signs Vital Signs: Vital Signs Temperature 97.3 F L 10/14/24 13:55 Pulse Rate 95 10/14/24 13:55 Respiratory Rate 18 10/14/24 13:55 Blood Pressure 134/81 10/14/24 13:55 Pulse Oximetry 100 10/14/24 13:55 Oxygen Delivery Room Air 10/14/24 13:55 Temperature 97.3 F L 10/14/24 13:55 Pulse Rate 95 10/14/24 13:55 Respiratory Rate 18 10/14/24 13:55 Blood Pressure 134/81 10/14/24 13:55 Pulse Oximetry 100 10/14/24 13:55 Oxygen Delivery Room Air 10/14/24 13:55 Discharge Plan Discharge Clinical Impression: Chronic knee pain Patient Disposition: Home Condition: Stable Instructions: Antibiotic Form, Knee Pain (ED) Additional Instructions: You were seen in the emergency department for knee pain. Please take Tylenol for pain. Use oxycodone or tramadol for breakthrough pain. Please call Dr. Garcia's clinic 1st thing tomorrow morning to arrange follow-up within 1 week. If you develop severe pain, fevers or any new or worsening symptoms please return to ED for re-evaluation. Patient Language: Barbadian Prescriptions: New acetaminophen 500 mg capsule 1,000 mg PO Q6H PRN (Reason: pain) Qty: 60 0RF oxycodone 5 mg tablet 5 mg PO Q4H PRN (Reason: pain) Qty: 14 0RF No Action Linzess 72 mcg capsule 72 mcg PO DAILY 30 Days Qty: 30 5RF linaclotide 72 mcg capsule 72 mcg capsule 0RF zolpidem 10 mg tablet 10 mg PO QHS atorvastatin 20 mg Tablet 20 mg PO DAILY amlodipine 5 mg Tablet 5 mg PO DAILY potassium chloride 10 mEq Tablet Extended Release 10 meq PO DAILY hydrochlorothiazide 12.5 mg Capsule 12.5 mg PO DAILY duloxetine 60 mg Capsule,Delayed Release(Dr/Ec) 60 mg PO BID biotin 1,000 mcg Tablet,Chewable 1,000 mcg PO DAILY levothyroxine [Synthroid] 50 mcg tablet 100 mcg PO DAILY ibuprofen 400 mg tablet 400 mg PO TID Qty: 14 0RF loratadine 10 mg tablet 10 mg PO DAILY Qty: 20 0RF hydroxyzine HCl 25 mg tablet 25 mg PO BID PRN (Reason: itching) Qty: 14 0RF tramadol 50 mg tablet 50 mg PO Q8H PRN (Reason: pain) Qty: 14 0RF Follow-up/Referrals: Anthony Garcia MD [Physician] - 1 Week (Knee pain ) Betty,ALEKSANDRA Hunter [Primary Care Provider] -
[2024-10-14] MEDS: ACETAMINOPHEN 500 MG TABLET 1000 MG PO (15:53)
[2024-10-14] MEDS: oxyCODONE HCL (*CRX) 5 MG TAB IR PO (15:53)
[2024-10-14 16:02] VITALS: BP 123/86; PULSE 80; RESP 16; O2SAT 97
== END 2024-10-14 16:03 | disposition home or self-care (01) ==
PROVIDERS: Emergency Provider Emergency Medicine; PCP Nurse Practitioner Family
DX: M25.561 Pain in right knee (principal); G89.29 Other chronic pain; I10 Essential (primary) hypertension; E78.5 Hyperlipidemia, unspecified; E03.9 Hypothyroidism, unspecified; Z87.440 Personal history of urinary (tract) infections; Z90.710 Acquired absence of both cervix and uterus; Z79.899 Other long term (current) drug therapy
CPT/HCPCS: 73564; 93971; 99284; A9270

== ENCOUNTER 2024-11-10 16:51 | Outpatient (CLI) | payer MEDICARE, MEDICAID, SELFPAY ==
--- OUTSIDE RECORDS SUMMARY | 2022-07-02 09:38 | XMS_ITS | Continuity of Care Document ---
Author Organization [facility] Address [address] [place] [address] Phone Care Team Providers Care Flight Attendant Ramp Name Role Phone Lee Wright MD Unavailable Unavailable Procedures Procedure Date INJ SPINE CERV/THOR W/ IMAGING GUIDANCE SURGICAL TRAY LOW OSMOLAR CONTRAST (200 TO 299 MG IODI NE) Injection, Triamcinolone Acetonide, 10mg Advance Directives Directive Yes / No Effective Date File Name No Information Encounters Encounter Description Practice Location Reason(s) For Visit Diagnoses Date Provider Providers Copied on Encounter [facility], [address], [place], [place], [id number], tel:[phone] [facility] No Information Kyle Julian [address] [place], [place], [id number], . tel:[phone] [facility], [address], [place], [place], [address], tel:[phone] [facility] No Information Kyle Julian [address] [place], [place], [id number], . tel:[phone] Referring Provider: Manuela Shah [address] [place] [address], [place], [address]. tel:[phone] Family History Family Member Type Diagnosis Age At Onset No Information Payers Payer name Insurance type Covered libertarian ID Authoriza tion(s) MEDICARE [id number] [facility] [id number] Social History Type Description Quantity Date Captured Comments Sex Female Smoking Status No Information Chief Complaint And Reason For Visit No Information Reason For Referral Reason For Referral No Information History Of Present Illness Encounter Date Complaint History Of Prese nt Illness No Information Functional Status Date Functional Assessmen t No Information Instructions Date Instruction Additional Infor mation No Information Assessments Type Assessment Date No Information Patient Care Teams Name Effective Dates (start - stop) Status Members No Information
--- NOTE | ~2024-11-10 | CT_ITS ---
EXAMINATION: CT abdomen pelvis wo pam, 11/10/2024 17:19 CDT HISTORY: right flank pain COMPARISON: No comparisons available. TECHNIQUE: CT scan of the abdomen and pelvis was performed without IV contrast. One or more of the following dose reduction techniques were used: automated exposure control, adjustment of the mA and/or kV according to patient size, use of iterative reconstruction technique. Unless otherwise stated, incidental findings do not require dedicated follow up imaging FINDINGS: CT abdomen: LUNG BASES: Lung bases chronic changes. LIVER: Punctate calcified liver granulomas. SPLEEN: Punctate calcified splenic granulomas.. KIDNEYS: Right Kidney: Unremarkable. No calculi. No hydronephrosis. Left Kidney: Left kidney superior pole probable subcentimeter hemorrhagic renal cyst but too small to characterize, outpatient with ultrasound is suggested. ADRENAL GLANDS: Unremarkable. PANCREAS: Moderate pancreatic atrophy. GALLBLADDER/BILIARY: Gallbladder not identified. STOMACH AND ESOPHAGUS: Large hiatal hernia. BOWEL/MESENTERY: Duodenal diverticulum 1.5 x 1.5 cm. Moderate fecal content. Mild diverticulosis. No colitis or diverticulitis. Appendix not identified. Mesentery is normal. Small bowel normal. ADENOPATHY/RETROPERITONEUM: No lymphadenopathy. AORTA/VASCULATURE: Normal caliber aorta. FREE FLUID OR FREE AIR: No free fluid.. CT pelvis: SOLID ORGANS/REPRODUCTIVE: Post hysterectomy. No adnexal mass. BLADDER: Within normal limits. OSSEOUS STRUCTURES: No acute osseous abnormality.No suspicious lesions. OVERLYING SOFT TISSUES: Unremarkable. IMPRESSION: 1. No etiology to explain the patient's pain. Incidental findings above Reviewed, dictated and finalized at location A.
--- OUTSIDE RECORDS SUMMARY | 2024-11-10 16:54 | XMS_ITS | Encounter Summary ---
Author Organization [facility] Address [address] [place] [address] Phone Care Team Providers Care Senior Microsoft Consultant Name Role Phone Matt Painting MD Primary Care Provider [phone] Tyesha Abarca DPT Unavailable Unavailable Yesi Cook DPT Unavailable Unavailable Renetta Pearl MA Unavailable [phone] Vernon Hernandez RN Unavailable [phone] Vernon Hernandez RN Unavailable [phone] Renetta Pearl MA Unavailable [phone] Shanna Oakes CIRCUS AGENT Primary Care Provider [phone] Tracy Hernández CIRCUS AGENT Primary Care Provider [phone] Encounter Details Date Type Department Care Team (Late st Contact Info) Description 06/12/2017 Orders Only [facility] ProviderChente MD [facility] [place] [address] Social History Tobacco Use Types Packs/Day Years Used Date Smoking Tobacco: Never Smokeless Tobacco: Never Alcohol Use Standard Drinks/Week Comments No 0 (1 standard drink = 0.6 oz pur e alcohol) Comments Unknown Sex and Gender Information Value Date Recorded Sex Assigned at Not on file Legal Sex Female 11:38 PM COMPUTER PROCESSING SCHEDULER Gender Identity Female 08/02/2019 9:59 AM CDT [...] on filedocumented in this encounter Care Teams Senior Microsoft Consultant Relationship Specialty Start Date End Date Matt Painting MD [address] [facility] [address] [place] [address] PCP - General 05/31/16 12/08/19 Shanna Oakes NP [address] [facility] [address] [place] [address] PCP - General Internal Medicine 12/09/19 07/21/24 Tracy Hernández NP [address] [facility] [address] [place] [address] PCP - General Family Medicine 07/22/24 Tyesha Abarca DPT Physical Therapist Physical Therapy 04/30/17 02/08/18 Yesi Cook DPT Physical Therapist Physical Therapy 07/30/17 03/06/20 Renetta Pearl MA [address] [facility] [address] [facility] [address] [place] [address] ACO Care Radio Repairer Domestic 12/15/17 12/31/17 Vernon Hernandez, OPHELIA [address] [facility] [address] [place] [address] Detasseling Crew Supervisor 01/01/18 02/11/18 Vernon Hernandez RN [address] [facility] [address] [place] [address] CJR Outpatient Boat Cleaning Supervisor 07/20/18 10/15/18 Renetta Pearl MA [address] [facility] [address] [place], [place] [id number] ACO Care Radio Repairer Domestic 07/21/18 07/21/18 documented as of this encounter
--- OUTSIDE RECORDS SUMMARY | 2024-11-10 16:54 | XMS_ITS | Encounter Summary ---
Author Organization [facility] Address [address] [place] [address] Phone Care Team Providers Care Track Grinder Operator Name Role Phone Matt Painting MD Primary Care Provider [phone] Tyesha Abarca DPT Unavailable Unavailable Yesi Cook DPT Unavailable Unavailable Renetat Pearl MA Unavailable [phone] Venron Hernandez RN Unavailable [phone] Vernon Hernandez RN Unavailable [phone] Renetta Pearl MA Unavailable [phone] Shanna Oakes COLOR MAKER DYER Primary Care Provider [phone] Tracy Hernández COLOR MAKER DYER Primary Care Provider Encounter Details Date Type Department Care Team (Late st Contact Info) Description 04/15/2017 Orders Only [facility] ProviderChente MD [facility] [place] [address] Social History Tobacco Use Types Packs/Day Years Used Date Smoking Tobacco: Never Smokeless Tobacco: Never Alcohol Use Standard Drinks/Week Comments No 0 (1 standard drink = 0.6 oz pur e alcohol) Comments Unknown Sex and Gender Information Value Date Recorded Sex Assigned at Not on file Legal Sex Female 11:38 PM LUTE PACKER OR APPLIER Gender Identity Female 08/02/2019 9:59 AM CDT Sexual Orientation Straight 06/03/2018 6: 51 PM CDT documented as of this encounter Plan of Treatment Not on file documented as of this encounter Procedures Procedure Name Priority Date/Time Associated Diagnosis Comments DISCHARGE LABORATORY CUMULATIVE REPORT 04/15/2017 12:00 AM LUTE PACKER OR APPLIER documented in this encounter Results * DISCHARGE LABORATORY CUMULATIVE REPORT (04/15/2017 12:00 AM LUTE PACKER OR APPLIER) Narrative 04/15/2017 12:00 AM LUTE PACKER OR APPLIER Ordered by an unspecified provider. us Historical Provider LAB BLOOD ORDERABLES Arline l Result documented in this encounter Visit Diagnoses Not on filedocumented in this encounter Care Teams Track Grinder Operator Relationship Specialty Start Date End Date Matt Painting MD [address] [facility] [address] [place] [address] PCP - General 05/31/16 12/08/19 Shanna Oakes NP [address] [place] [address] [address] [place] [address] PCP - General Internal Medicine 12/09/19 07/21/24 Tracy Hernández NP [address] [facility] [address] [place] [address] PCP - General Family Medicine 07/22/24 Tyesha Abarca DPT Physical Therapist Physical Therapy 04/30/17 02/08/18 Yesi Cook DPT Physical Therapist Physical Therapy 07/30/17 03/06/20 Renetta Pearl MA [address] [place] [address] [address] [place] [address] ACO Care Trolley Car Overhauler 12/15/17 12/31/17 Vernon Hernandez, OPHELIA [address] [place] [address] [address] [place] [address] Foot Cutter 01/01/18 02/11/18 Vernon Hernandez RN [address] [facility] [address] [place], [place] [id number] CJR Outpatient Food And Beverage Operations Manager 07/20/18 10/15/18 Renetta Pearl MA [address] [place], [place] [id number] ACO Care Trolley Car Overhauler 07/21/18 07/21/18 documented as of this encounter
--- OUTSIDE RECORDS SUMMARY | 2024-11-10 16:55 | XMS_ITS | Encounter Summary ---
Author Organization [facility] Healthcare Address [address] [place] [address] Care Team Providers Care Foxing Cutting Machine Operator Name Role Phone Tracy Hernández NP Primary Care Provider Reason for Visit * Reason Onset Date Comments Dysuria 08/02/2024 IV Antibiotics 08/02/2024 Encounter Details Date Type Department Care Team (Late st Contact Info) Description 08/02/2024 Nurse Triage [facility] Primary Care at [address] [address] Tracy Hernández NP [address] [place] [address] [address] [place] [address] Social History Tobacco Use Types [...] on file Legal Sex Female 11:38 PM RIVET HEATER Gender Identity Female 08/02/2019 9:59 AM CDT [...] AM CDT Medical Question/Miscellaneous Caller???s Concern: Yeimy, air and water filler with the [facility], calling in to get further clarification on instructions for patient to go to the ED. Warm transferred. Does message need to be routed? No Reason for Warm Transfer: Symptoms: Patient has Red flag symptoms, stationary engineer supervisor evaluated patient and directed patient to call [...] Tract Infection on Antibiotic Follow-up Call - [id number] * Telephone Encounter - Odette Zimmer RN [...] on filedocumented in this encounter Care Teams Foxing Cutting Machine Operator Relationship Specialty Start Date End Date Tracy Hernández NP [address] [address] PCP - General Family Medicine 07/22/24 documented as of this encounter
--- OUTSIDE RECORDS SUMMARY | 2024-11-10 16:55 | XMS_ITS | Encounter Summary ---
Author Organization [facility] Healthcare Address [address] [place] [address] Care Team Providers Care Manager Chemical Name Role Phone Shanna Oakes NP Primary Care Provider [phone] Tracy Hernández GEAR INSPECTOR Primary Care Provider [phone] Encounter Details Date Type Department Care Team (Late st Contact Info) Description 12/20/2020 Telephone [facility] - Interventional Radiology [address] [place] [address] Juanis Mejia RN Social History [...] on file Legal Sex Female 11:38 PM CLEANER CARPET AND UPHOLSTERY Gender Identity Female 08/02/2019 9:59 AM CDT Sexual Orientation Straight 06/03/2018 6: 51 PM CDT documented as of this encounter Plan of Treatment Not on file documented as of this encounter Visit Diagnoses Not on filedocumented in this encounter Care Teams Manager Chemical Relationship Specialty Start Date End Date Shanna Oakes NP PCP - General Internal Medicine 12/09/19 07/21/24 Tracy Hernández NP [address] [address] PCP - General Family Medicine 07/22/24 documented as of this encounter
--- OUTSIDE RECORDS SUMMARY | 2024-11-10 16:55 | XMS_ITS | Patient Health Record ---
Author Organization [facility] Address [address] [facility] [address] [place] [address] Care Team Providers Care Dental Hygienist Name Role Phone Irving Thomas Unavailable [phone] Reason For Referral No Information Medications Medication SIG (Take, Route, Frequency, Duration) Notes Start Date End Date Status DULoxetine HCl 60 MG take 1 capsule (60 mg) by oral route once daily Oral 1 Active Levothyroxine Sodium 75 MCG take 1 capsu le (75 mcg) by oral route once daily Oral 1 Active Aspirin Adult Low Strength 8 1 MG take 1 tablet (81 mg) by oral route once daily Oral 1 Active hydroCHLOROthiazide 12.5 MG take 1 table t (12.5 mg) by oral route once daily Oral 1 Active Gabapentin 300 MG take 1 capsule by oral route daily Oral 1 Active Zolpidem Tartrate 5 MG take 1 tablet (5 mg) by oral route once daily at bedtime Oral 1 Active clonazePAM 0.5 MG take 1 tablet (0.5 mg) by oral route 2 times per day Oral 2 Active traMADol HCl 50 MG take 1 tablet (50 mg ) by oral route every 6 hours as needed Oral 4 12/22/2020 Active amLODIPine Besylate 5 MG take 1 tablet ( 5 mg) by oral route once daily Oral 1 Active Atorvastatin Calcium 20 MG take 1 tablet (20 mg) by oral route once daily Oral 1 Active Clobetasol Propionate 0.05 % apply to th e affected scalp area by topical route 2 times per day in the morning and evening External 2 Active Omeprazole 20 MG take 1 capsule (20 mg) by oral route once daily before a meal Oral 1 Active Trospium Chloride 20 MG take 1 tablet (2 0 mg) by oral route 2 times per day at least 1 hour before or 2 hours after meals Oral 2 Active Klor-Con 20 mEq take 1 packet (20 meq) dissolved in 4-6 ounces of cold water or juice by oral route 2 times per day Oral 2 Active Problems Problem Type SNOMED Code ICD Code Onset Dates Problem Status W/U Status Risk Notes Problem Joint pain (32612981) Pain in unspecified joint (M25.50) Active confirmed Plan Of Treatment No Information Insurance Providers Payer Name Payer Address Payer Phone Subscriber Number Group Number Insured Name Patient Relationship to Insured Coverage Start Date Coverage End Date DO NOT USE AR [id number] Latasha Menard Self - patient is the insured DO NOT USE [id number] Latasha Menard Self - patient is the insured Medical (General) History Surgical History Surgery Date(Month/Year) Hysterectomy; 2020-12-04 Shoulder surgery; 2020-12-04 cataract; 2020-12-04 Hernia Repair; 2020-12-04 Knee surgery; 2020-12-04 ACL tear; 2020-12-04 Sinus Surgery; 2020-12-04
--- OUTSIDE RECORDS SUMMARY | 2024-11-10 16:55 | XMS_ITS | Encounter Summary ---
Author Organization [facility] Healthcare Address [address] [place] [address] Care Team Providers Care Electrical Appliance Mechanic Name Role Phone Matt Painting MD Primary Care Provider [phone] Tyesha Abarca DPT Unavailable Unavailable Yesi Cook DPT Unavailable Unavailable Renetta Pearl MA Unavailable [phone] Vernon Hernandez RN Unavailable [phone] Vernon Hernandez RN Unavailable [phone] Renetta Pearl MA Unavailable [phone] Shanna Oakes AEROGRAPHER Primary Care Provider [phone] Tracy Hernández AEROGRAPHER Primary Care Provider [phone] Encounter Details Date Type Department Care Team (Late st Contact Info) Description 11/28/2017 Documentation [facility] Case Management [address] [place] [address] Opal Marsh MSW Social History Tobacco Use Types Packs/Day Years Used Date Smoking Tobacco: Never Smokeless Tobacco: Never Alcohol Use Standard Drinks/Week Comments No 0 (1 standard drink = 0.6 oz pur e alcohol) Comments Unknown Sex and Gender Information Value Date Recorded Sex Assigned at Not on file Legal Sex Female 11:38 PM FILM DRYING MACHINE OPERATOR Gender Identity Female 08/02/2019 9:59 [...] on filedocumented in this encounter Care Teams Electrical Appliance Mechanic Relationship Specialty Start Date End Date Matt Painting MD [address] [facility] [address], [place] [address] PCP - General 05/31/16 12/08/19 Shanna Oakes NP [address] [place] [address] [address] [place] [address] PCP - General Internal Medicine 12/09/19 07/21/24 Tracy Hernández NP [address] [facility] [address] [place] [address] PCP - General Family Medicine 07/22/24 Tyesha Abarca, KIMBERLY Physical Therapist Physical Therapy 04/30/17 02/08/18 Joyce, Yesi E., DPT Physical Therapist Physical Therapy 07/30/17 03/06/20 Renetta Pearl MA [address] [facility] [address] [place] [address] ACO Care Telephone Directory Distributor Driver 12/15/17 12/31/17 Vernon Hernandez RN [address] [place] [address] [address] [place], [place] [id number] Bundle Cutter 01/01/18 02/11/18 Vernon Hernandez RN [address] [place] [address] [address] [place], [place] [id number] CJR Outpatient Water Plant Pump Operator Supervisor 07/20/18 10/15/18 Renetta Pearl MA [address] [place] [address] ACO Care Telephone Directory Distributor Driver 07/21/18 07/21/18 documented as of this encounter
--- OUTSIDE RECORDS SUMMARY | 2024-11-10 16:55 | XMS_ITS | Encounter Summary ---
Author Organization [facility] Healthcare Address [address] [place] [address] Care Team Providers Care Pastry Assistant Name Role Phone Matt Painting MD Primary Care Provider [phone] Yesi Cook DPT Unavailable Unavailable Vernon Hernandez RN Unavailable Renetta Pearl MA Unavailable Shanna Oakes OUTBOARD MOTORBOAT OPERATOR Primary Care Provider Tracy Hernández OUTBOARD MOTORBOAT OPERATOR Primary Care Provider [phone] Encounter Details Date Type Department Care Team (Late st Contact Info) Description 06/24/2018 Documentation [facility] Case Management [address] [place] [id number] Opal Marsh MSW Social History Tobacco Use Types Packs/Day Years Used Date Smoking Tobacco: Never Smokeless Tobacco: Never Alcohol Use Standard Drinks/Week Comments No 0 (1 standard drink = 0.6 oz pur e alcohol) Comments No Sex and Gender Information Value Date Recorded Sex Assigned at Not on file Legal Sex Female 11:38 PM LIAISON ENGINEER Gender Identity Female 08/02/2019 9:59 AM [...] [facility] Secondary choice [facility] the [facility] in [place]. Pt informed that the referral will be sent upon admission for placement if PT recs SNF. SW will followafter surgery. documented in this encounter Plan of Treatment Not on file documented as of this encounter Visit Diagnoses Not on filedocumented in this encounter Care Teams Pastry Assistant Relationship Specialty Start Date End Date Matt Painting MD [address] [facility] [address] [address] PCP - General 05/31/16 12/08/19 Shanna Oakes NP [address] [place] [address] Drive [address] [place] [address] PCP - General Internal Medicine 12/09/19 07/21/24 Tracy Hernández NP [address] [facility] [address] [place] [address] PCP - General Family Medicine 07/22/24 Yesi Cook DPT Physical Therapist Physical Therapy 07/30/17 03/06/20 Vernon Hernandez RN [address] [place], [place] [address]R[place] [address] [facility] Outpatient Resource Recovery Specialist 07/20/18 10/15/18 Renetta Pearl, SONIA [address] [place] [address] ACO Care Farm Equipment Maintenance Supervisor 07/21/18 07/21/18 documented as of this encounter
--- OUTSIDE RECORDS SUMMARY | 2024-11-10 16:55 | XMS_ITS | Clinical Summary ---
Author Organization [facility] Address [address] [place] [address] Care Team Providers Care Ventilated Rib Fitter Name Role Phone Tracy Hernández NP Primary Care Provider [phone] Allergies Active Allergy Reactions Criticality Noted Date Comments Nitrofurantoin Nausea only Low Nitrofurantoin Monohyd/M-Cryst Other (See comments) Low 11/20/2016 Affects liver per pt Sulfa (Sulfonamide Antibiotics) Other (See comments) Low Reaction: GI macrobid, nitrofurantin, Nausea and tears up my Liver Sulfamethoxazole-Trimeth oprim Trimethoprim Stomach upset Low 09/09/2024 Valsartan Angioedema High 08/08/2017 Medications aspirin 81 mg enteric coated tabletIndicati ons:Atheroscle rosis of both carotid arteries Take 1 tablet (81 mg total) by mouth daily 30 tablet 11 12/20/19 20 Active busPIRone (BUSPAR) 5 mg tabletIndicati ons:Generalize d Anxiety Disorder Take 1 tablet (5 mg total) by mouth 2 (two) times a day 180 tablet 3 03/30/19 25 Active zolpidem CR (AMBIEN CR) 6.25 mg CR tabletIndicati ons:Insomnia Take 1 tablet (6.25 mg total) by mouth nightly as needed for sleep 30 tablet 5 08/10/19 25 025 Active Linzess 72 mcg capsule 09/10/19 Active levothyroxine (SYNTHROID) 100 mcg tablet TAKE 1 TABLET BY MOUTH DAILY BEFORE BREAKFAST 90 tablet 10/13/19 Active LORazepam (ATIVAN) 0.5 mg tablet TAKE 1 TABLET BY MOUTH TWICE DAILY NEEDED FOR ANXIETY 60 tablet 10/16/19 25 Active amLODIPine (NORVASC) 5 mg tablet TAKE 1 TABLET BY MOUTH ONCE DAILY 30 tablet 1 10/16/19 25 Active traMADoL (ULTRAM) 50 mg tablet Take 1 tablet by mouth twice daily as needed for pain must last 30 days 60 tablet 1 10/21/19 25 Active gabapentin (NEURONTIN) 300 mg capsule Take 1 capsule (300 mg total) by mouth daily 90 capsule 1 10/26/19 25 Active atorvastatin (LIPITOR) 40 mg tablet Take 1 tablet (40 mg total) by mouth daily 90 tablet 3 10/26/[address] (CYMBALTA) 60 mg capsule Take 2 capsules (120 mg total) by mouth daily 180 capsule 1 10/26/19 25 Active hydroCHLOROthi azide 12.5 mg tablet Take 1 tablet/capsul e (12.5 mg total) by mouth daily 90 tablet/caps ule 1 10/26/19 25 Active omeprazole (PriLOSEC) 20 mg capsule Take 1 capsule (20 mg total) by mouth daily 90 capsule 10/26/19 Active potassium chloride ER 20 mEq CR tablet Take 1 tablet (20 mEq total) by mouth daily 90 tablet 3 10/26/19 25 Active mometasone (ELOCON) 0.1 % solution 3 drops to affected ear canal daily for 1 week, then use M-W-F (every other day) 30 mL 1 02/13/20 21 025 Discontinued( erapy completed) triamcinolone (KENALOG) 0.1 % cream APPLY TOPICALLY TO AREAS OF ITCHING WITHOUT RASH TWICE DAILY FOR UP TO 4 WEEKS, THEN TAKE A 2 WEEK BREAK. DO NOT USE ON FACE 12/12/19 025 Discontinued( erapy completed) clobetasoL (TEMOVATE) 0.05 % external solution APPLY TO SCALP AND EARS TWICE DAILY NEEDED FOR FLAKING,SCALI NG,OR ITCHING. 12/28/19 025 Discontinued( erapy completed) loratadine (Allergy Relief, loratadine,) 10 mg tablet TAKE 1 TABLET BY MOUTH ONCE DAILY NEEDED FOR ALLERGIES 90 tablet 3 06/05/19 24 025 Discontinued( erapy completed) gabapentin (NEURONTIN) 300 mg capsule Take 1 capsule by mouth once daily 90 capsule 07/29/19 24 025 Discontinued(Re order) DULoxetine DR (CYMBALTA) 60 mg capsule Take 2 capsules by mouth once daily 180 capsule 1 08/08/19 025 Discontinued(Re order) amLODIPine (NORVASC) 5 mg tablet Take 1 tablet by mouth once daily 90 tablet 1 08/08/19 24 025 Discontinued atorvastatin (LIPITOR) 40 mg tablet Take 1 tablet by mouth once daily 90 tablet 08/29/19 24 025 Discontinued(Re order) omeprazole (PriLOSEC) 20 mg capsule Take 1 capsule by mouth once daily 90 capsule 08/29/19 24 025 Discontinued(Re order) potassium chloride ER 20 mEq CR tablet Take 1 tablet by mouth once daily 90 tablet 09/22/19 24 025 Discontinued(Re order) hydroCHLOROthi azide (MICROZIDE) 12.5 mg capsule Take 1 capsule by mouth once daily 90 capsule 1 10/06/19 24 025 Discontinued(Re order) LORazepam (ATIVAN) 0.5 mg tablet TAKE 1 TABLET BY MOUTH TWICE DAILY NEEDED FOR ANXIETY 60 tablet 1 06/22/19 025 Discontinued levothyroxine (SYNTHROID) 100 mcg tablet Take 1 tablet (100 mcg total) by mouth base wad 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 adjuster before breakfast 90 tablet 07/24/19 25 025 Discontinued clindamycin (CLEOCIN) 150 mg capsule Take 1 capsule (150 mg total) by mouth 4 (four) times a day 08/24/19 25 025 Discontinued( erapy completed) metroNIDAZOLE (FLAGYL) 500 mg tablet Take 1 tablet (500 mg total) by mouth 2 (two) times a day 08/28/19 25 025 Discontinued( erapy completed) traMADoL (ULTRAM) 50 mg tablet Take 1 tablet (50 mg total) by mouth 2 (two) times a day as needed for pain 60 tablet 09/22/19 25 025 Discontinued Active Problems Problem Noted Date Diagnosed Date Wears hearing aid 10/25/2024 Sensorineural hearing loss of combined sites, bi lateral 10/25/2024 Constipation 10/25/2024 Assessment & Plan (10/25/2024 2:55 PM CDT): Has followed up with GI and Linzess has improved the chronic constipation. 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 Will continue Ambien at bedtime p.r.n. Assessment & Plan (07/26/2024 9:29 PM CDT): Continues on zolpidem. Assessment & Plan (03/30/2024 12:53 PM VICE PRESIDENT QUALITY ASSURANCE): Stable, continue Zolpidem Assessment & Plan (12/29/2023 1:26 PM CDT): Worse. Will switch to an ER Zolpidem. Dermatochalasis of both upper eyelids 10/15/2022 Assessment & Plan (10/16/2023 4:47 PM CDT): Pt not bothered, monitor Assessment & Plan (10/15/2022 12:55 PM CDT): Not v/s, monitor Atherosclerosis of aorta 05/09/2022 Overview (05/09/2022): 05/09/21- xray Assessment & Plan (03/30/2024 12:52 PM VICE PRESIDENT QUALITY ASSURANCE): Stable, continue aspirin and Atorvastatin Assessment & Plan (09/16/2023 10:46 AM CDT): Stable, continue Atorvastatin and aspirin. Assessment & Plan (01/13/2023 10:31 AM VICE PRESIDENT QUALITY ASSURANCE): Stable, continue aspirin and Atorvastatin Encounter for Medicare annual wellness exam 05/02 Assessment & Plan (03/30/2024 12:49 PM VICE PRESIDENT QUALITY ASSURANCE): Please see below for a list of your medical conditions and recommendations. Assessment & Plan (01/13/2023 10:30 AM VICE PRESIDENT QUALITY ASSURANCE): Please see below for a list of your medical conditions and recommendations. Assessment & Plan (01/03/2022 1:23 PM CDT): Please see below for a list of your medical conditions and recommendations. Assessment & Plan (05/23/2020 10:33 AM CDT): Please see below for a list of your medical conditions and recommendations. Atherosclerosis of both carotid arteries 020 Assessment & Plan (03/30/2024 12:53 PM VICE PRESIDENT QUALITY ASSURANCE): Stable, continue aspirin and Atorvastatin Assessment & Plan (09/16/2023 10:47 AM CDT): Stable, continue Atorvastatin and aspirin Assessment & Plan (01/13/2023 10:32 AM VICE PRESIDENT QUALITY ASSURANCE): Stable, continue aspirin and Atorvastatin Assessment & Plan (01/03/2022 1:32 PM CDT): Stable, continue aspirin and Atorvastatin. Assessment & Plan (05/03/2021 11:10 AM VICE PRESIDENT QUALITY ASSURANCE): Stable, continue Atorvastatin and aspirin Assessment & [...] UTI Assessment & Plan (04/15/2017 12:43 PM VICE PRESIDENT QUALITY ASSURANCE): Having increased urinary frequency but no pain, feels similar to UTIs in the past. UA today with just trace blood, negative for leuks and nitrites Advised to keep hydrated and will send UA for culture BMI 28.0-28.9,adult 04/15/2017 Assessment & Plan (10/08/2017 11:47 AM CDT): Try to cut back on calories. Most people should eat between 2261-9817 calories to lose weight. Decrease your carbohydrate [...] help. Assessment & Plan (04/15/2017 11:14 AM VICE PRESIDENT QUALITY ASSURANCE): BMI Follow-up includes: nutrition counseling and exercise [...] management. Assessment & Plan (05/03/2021 11:10 AM VICE PRESIDENT QUALITY ASSURANCE): Stable, continue Gabapentin and Duloxetine Assessment & Plan (12/19/2019 7:35 PM CDT): Stable, continue duloxetine Assessment & Plan (06/14/2019 8:10 AM CDT): Requires chronic duloxetine and gabapentin therapy. Does see pain management at times. Assessment & Plan (04/15/2017 12:40 PM VICE PRESIDENT QUALITY ASSURANCE): Improved and using lidocaine patches which help. Suspect this is more from bulging disc than it is from UTI and patient agrees. Major depression single episode, in partial amanda ssion 08/28/2016 Assessment & Plan (10/25/2024 2:55 PM CDT): Stable, chronic. Continue duloxetine Assessment & Plan (03/30/2024 12:53 PM VICE PRESIDENT QUALITY ASSURANCE): Stable, continue Duloxetine Assessment & Plan (12/29/2023 1:26 PM CDT): Stable, continue Duloxetine Assessment & Plan (01/13/2023 10:33 AM VICE PRESIDENT QUALITY ASSURANCE): Stable, continue Duloxetine Assessment & Plan (09/10/2022 3:17 PM CDT): Improved. Continue Duloxetine Assessment & Plan (05/03/2022 2:59 PM VICE PRESIDENT QUALITY ASSURANCE): Stable, continue Duloxetine Assessment & Plan (01/03/2022 1:30 PM CDT): Intermittent. Continue Duloxetine. Assessment & Plan (05/03/2021 11:09 AM VICE PRESIDENT QUALITY ASSURANCE): Chronic and unchanged. Continue Duloxetine Assessment & [...] Duloxetine Assessment & Plan (02/16/2018 1:25 PM VICE PRESIDENT QUALITY ASSURANCE): Doing well with the clonazepam and duloxetine Assessment & Plan (04/15/2017 12:42 PM VICE PRESIDENT QUALITY ASSURANCE): Still teary in the room over the [...] CDT): NPAT [facility]U prn Seborrheic eczema 07/19/2013 Hypothyroidism 02/03/2012 Overview (06/07/2016): Hypothyroidism Assessment & Plan (10/25/2024 2:55 PM CDT): Euthyroid. Repeat TSH in August was within normal limits. Will continue on levothyroxine 100 mcg Assessment & Plan (09/16/2024 2:56 PM CDT): Orders: TSH; Future Assessment & Plan (03/30/2024 12:50 PM VICE PRESIDENT QUALITY ASSURANCE): Stable, continue levothyroxine Assessment & Plan (12/29/2023 1:24 PM CDT): Stable, continue levothyroxine Assessment & Plan (09/16/2023 10:46 AM CDT): Stable? Will recheck today. Assessment & Plan (01/13/2023 10:31 AM VICE PRESIDENT QUALITY ASSURANCE): Stable, continue levothyroxine. Assessment & Plan (09/10/2022 3:15 PM CDT): Stable? Will recheck today. Assessment & Plan (05/03/2022 2:57 PM VICE PRESIDENT QUALITY ASSURANCE): Stable? Will recheck today. Assessment & Plan (01/03/2022 1:24 PM CDT): Stable, continue levothyroxine Assessment & Plan (05/03/2021 11:08 AM VICE PRESIDENT QUALITY ASSURANCE): Stable? Continue levothyroxine. Assessment & Plan (11/08/2020 5:23 PM CDT): Stable, continue levothyroxine Assessment & Plan (05/22/2020 7:58 PM CDT): Stable? Will recheck today. Chronic pain 02/03/2012 Overview (06/08/2016): Chronic pain Assessment & Plan (10/25/2024 2:55 PM CDT): Chronic low back pain and chronic knee pain. Continue tramadol. If knee pain worsens again she may asked to see Orthopedics here in [place] Assessment & Plan (09/10/2022 3:16 PM CDT): Chronic and unchanged. Continue Tramadol as needed. Assessment & Plan (06/12/2017 11:27 AM CDT): On 4 per day from 6 per day after shoulder is better and for athritis In low back pain and continue cutting back Hypercholesterolemia 11/29/2010 Assessment & Plan (07/26/2024 9:28 PM CDT): Lipid abnormalities are stable, reviewed previous lipid levels in [facility]. Continue statin therapy. Lipitor (atorvastatin) Order for lipid panel was given today to be obtained. Pt voiced understanding of lab drawn and continuation of current medication regimen. Assessment & Plan (03/30/2024 12:49 PM VICE PRESIDENT QUALITY ASSURANCE): Continue low fat eating- limit fried foods, [...] prescribed. Assessment & Plan (01/13/2023 10:30 AM VICE PRESIDENT QUALITY ASSURANCE): Continue low fat eating- limit fried foods, [...] prescribed. Assessment & Plan (05/03/2022 2:58 PM VICE PRESIDENT QUALITY ASSURANCE): Continue low fat eating- limit fried foods, [...] day. Assessment & Plan (05/03/2021 11:09 AM VICE PRESIDENT QUALITY ASSURANCE): Continue low fat eating- limit fried foods, [...] disorder with panic attacks Assessment & Plan (10/25/2024 2:55 PM CDT): Anxiety has stabilized. She feels like she is doing well at assisted-living [facility] here in [place]. Continues on the duloxetine and lorazepam daily. Assessment & Plan (03/30/2024 1:37 PM VICE PRESIDENT QUALITY ASSURANCE): Not controlled, continue Lorazepam as needed Assessment & Plan (01/13/2023 10:32 AM VICE PRESIDENT QUALITY ASSURANCE): Stable, continue Duloxetine and Lorazepam as needed. Assessment & Plan (09/10/2022 3:18 PM CDT): Improved. Continue Duloxetine and uses Lorazepam as needed. 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 Keep this medication out of the reach of other people. Do not drive or drink alcohol with this medication. Assessment & Plan (05/03/2022 3:00 PM VICE PRESIDENT QUALITY ASSURANCE): Chronic and unchanged. Continue Lorazepam as needed. 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 Keep this medication out of the reach [...] disease) Assessment & Plan (03/30/2024 12:53 PM VICE PRESIDENT QUALITY ASSURANCE): Try to eat smaller more frequent meals. [...] weight. Assessment & Plan (01/13/2023 10:32 AM VICE PRESIDENT QUALITY ASSURANCE): Try to eat smaller more frequent meals. [...] weight. Assessment & Plan (05/03/2022 2:59 PM VICE PRESIDENT QUALITY ASSURANCE): Try to eat smaller more frequent meals. [...] weight. Assessment & Plan (05/03/2021 11:09 AM VICE PRESIDENT QUALITY ASSURANCE): Try to eat smaller more frequent meals. [...] coffee, alcohol, chocolate). Achieve a healthy weight. Resolved Problems Problem Noted Date Diagnosed Date Resolved Date Bloating 10/25/2024 10/25/[address] scan 10/25/2024 10/25/2024 Abdominal pain 10/25/2024 10/25/2024 History of strabismus surgery 10/16/2023 07/22/2024 Localized edema 09/16/2023 07/22/2024 Right shoulder pain 02/29/2020 10/26/19 Primary osteoarthritis of left knee 06/12/2018 07/22/2024 Overview (06/12/2018): Added automatically from request for surgery [id number] Encounter for weight management 06/05/2018 07/22/2024 Dyslipidemia [...] needed Assessment & Plan (04/10/2018 4:07 PM VICE PRESIDENT QUALITY ASSURANCE): The patient has done very well overall [...] x-rays. Assessment & Plan (02/18/2018 11:58 AM VICE PRESIDENT QUALITY ASSURANCE): Treatment options were discussed. The patient would [...] on calories. Most people should eat between 5559-6486 calories to lose weight. Decrease your carbohydrate [...] on calories. Most people should eat between 4506-0685 calories to lose weight. Decrease your carbohydrate [...] 07/22/2024 Assessment & Plan (04/15/2017 12:41 PM VICE PRESIDENT QUALITY ASSURANCE): Will do ambulatory PT as she is [...] Rice - doing well; no diplopia -follow Hypertensive renal disease 07/02/2012 0 10/25/2024 Overview (06/07/2016): Hypertensive chronic kidney disease Assessment & Plan (03/30/2024 12:49 PM VICE PRESIDENT QUALITY ASSURANCE): The blood pressure is adequately controlled. Ideally, [...] way. Assessment & Plan (01/13/2023 10:30 AM VICE PRESIDENT QUALITY ASSURANCE): The blood pressure is adequately controlled. Ideally, [...] way. Assessment & Plan (05/03/2022 2:57 PM VICE PRESIDENT QUALITY ASSURANCE): The blood pressure is adequately controlled. Ideally, [...] way. Assessment & Plan (05/03/2021 11:08 AM VICE PRESIDENT QUALITY ASSURANCE): The blood pressure is adequately controlled. Ideally, [...] as tolerated with follow up as directed. 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 Gfr rechecked with labs today. Assessment & Plan (03/30/2024 12:53 PM VICE PRESIDENT QUALITY ASSURANCE): Continue to increase water intake. Limit use [...] weight. Assessment & Plan (01/13/2023 10:32 AM VICE PRESIDENT QUALITY ASSURANCE): Continue to increase water intake. Limit use of NSAIDs including Ibuprofen, Aleve, Motrin, etc. Continue aerobic exercise and maintain a healthy weight. Assessment & Plan (09/10/2022 3:20 PM CDT): Continue to increase water intake. Limit use of NSAIDs including Ibuprofen, Aleve, Motrin, etc. Continue aerobic exercise and maintain a healthy weight. Assessment & Plan (05/03/2022 3:00 PM VICE PRESIDENT QUALITY ASSURANCE): Continue to increase water intake. Limit use of NSAIDs including Ibuprofen, Aleve, Motrin, etc. Continue aerobic exercise and maintain a healthy weight. Assessment & Plan (01/03/2022 1:31 PM CDT): Continue to increase water intake. Limit use of NSAIDs including Ibuprofen, Aleve, Motrin, etc. Continue aerobic exercise and maintain a healthy weight. Assessment & Plan (05/03/2021 11:10 AM VICE PRESIDENT QUALITY ASSURANCE): Continue to increase water intake. Limit use [...] but no more than 3200 mg daily. Acute colitis 12/22/2018 Encounters Date Type Department Care Team Description 10/25/2024 2:00 PM CDT Office Visit [facility] at [address] [phone] Tracy Hernández NP Post-menopausal (Primary Dx); Drug-induced constipation; Other chronic pain; Chronic pain of right knee; Primary insomnia; Acquired hypothyroidism; Generalized anxiety disorder with panic attacks; Major depression single episode, in partial remission 10/18/2024 Orders Only [facility] at [address] [phone] ProviderChente MD 09/20/2024 Orders Only [facility] at [address] [phone] Tracy Hernández NP 09/20/2024 Orders Only [facility] [address] [place] [address] [address] Floor, [address] [place] [address] Jackie Mckeon OD Encounter for observation for other suspected diseases and conditions ruled out (Primary Dx) 09/17/2024 12:32 PM CDT - 09/17/2024 11:59 PM CDT Hospital Encounter [address] [address] Frequent UTI Discharge Disposition: Discharge to home or self care 09/17/2024 12:30 PM CDT Lab [facility] at [address] [phone] 09/17/2024 Results Follow-Up [facility] at [address] [phone] Tracy Hernández NP Basic metabolic panel, TSH, eGFR, Urine culture Urine, clean voided 09/16/2024 3:06 PM CDT - 09/16/2024 11:59 PM CDT Hospital Encounter [address] [address] Stage 3a chronic kidney disease (HCC); Acquired hypothyroidism Discharge Disposition: Discharge to home or self care 09/16/2024 3:00 PM CDT Lab [facility] at [address] [phone] 09/16/2024 2:00 PM CDT Office Visit [facility] at [address] [phone] Tracy Hernández NP Stage 3a chronic kidney disease (HCC) (Primary Dx); Frequent UTI; Acquired hypothyroidism 08/30/2024 Nurse Triage [facility] at [address] [phone] Tracy Hernández, ASSESSMENT RN 08/30/2024 Orders Only [facility] at [address] [phone] Tracy Hernández, ASSESSMENT RN 08/30/2024 Telephone [facility] at [address] [phone] Tracy Hernández NP Med Refill 08/30/2024 Telephone [facility] [address], [place] [address] Shanna Oakes NP 08/27/2024 Telephone [facility] [address] [place] [address] Manuela Shah NP 08/12/2024 Telephone [facility] at [address] [phone] Tracy Hernández NP Symptom Based Call; Medical Question/Miscellaneou s from Last 3 Months [...] Mrna, Bi valent, Original/omicron Ba.1 02/16/2024 Tdap 11/17/2023,08/22/2020,03/21/2014 Surgical History Surgery Date Site/Laterality Comments CHOLECYSTECTOMY [...] kidney disease) stage 3, GFR 30-59 ml/min ([facility]) Ocular migraine 03/13/2015 Cataract removed Brain concussion [...] Grandmother Daisha Saba Heart attack Mother Sowmya Sims age 62 Heart disease Mother Sowmya Cline y Rivera Hypertension Mother Sowmya Cline y [place] Alzheimer's disease Other Paternal aunt/uncle with Alzheimer's Cancer Paternal Grandfather Costa Rivera Kidney disease Paternal Grandmother Stephany Rivera Alzheimer's disease Son 1 living a ge 61 No Known Problems Son 2 living age 57 Alzheimer's disease Son 3 ana webber . Relation Name Status Comments Father Baljit Rivera [...] points, staff should administer the PHQ-9) 2 10/25/2024 Comments No Sex and Gender Information Value Date Recorded Sex Assigned at Not on file Legal Sex Female 11:38 PM VICE PRESIDENT QUALITY ASSURANCE Gender Identity Female 08/02/2019 9:59 AM CDT Sexual Orientation Straight 06/03/2018 6: 51 PM CDT Obstetrics History Last Filed Vital Signs Vital Sign Reading Time Taken Comments Blood Pressure 96/60 10/25/2024 2:09 PM CDT Pulse 90 10/25/2024 2:09 PM CDT Temperature 36.3 C (97.4 F) 10/25/2024 2:09 PM CDT Respiratory Rate 18 10/25/2024 2:09 PM CDT Oxygen Saturation 95% 10/25/2024 2:09 PM CDT Inhaled Oxygen Concentration - - Weight 72.8 kg (160 lb 9.6 oz) 10/25/2024 2:09 P M CDT Height 162.6 cm (5' 4) 10/25/2024 2:09 PM CDT Body Mass Index 27.57 10/25/2024 2:09 PM CDT Plan of Treatment Health Maintenance Due Date Last Done Comments Hepatitis B Screening 02/06/1953 Zoster Vaccine (1 of 2) 02/06/1986 Osteoporosis Screening-Bone Density Scan 12/28/2021 12/29/2019, 04/01/2014, 04/01/2014 Covid-19 Vaccine (7 - 2024-2 5 season) 2024 02/16/2024, 02/16/2024, 01/20/2023, Additional history exists Influenza Vaccine (#1) 2024 , 01/13/2023, 01/03/2022, Additional history exists Well Visit 65+ 03/30/2025 03/30/2024, 01/01, 01/03/2022, Additional history exists Fall Risk Assessment 07/22/2025 07/22/2024, 01/13/2023, 01/03/2022, Additional history exists Depression Screening 10/25/2025 10/25/2024, 07/22/2024, 03/30/2024, Additional history exists DTaP/Tdap/Td Vaccine (4 - Td or Tdap) 11/16/2033 11/17/2023, 08/22/2020, 03/21/2014 Pneumococcal vaccine 65+ Completed 12/22/2014, 05/01 Medical Devices Implanted Type Area Janitor Helper Device Identifier Shelf Expiration Date Model / Serial / Lot [employer] 6191-1-010 Simplex P Radiopaque Full Dose Cement Bone Sterile - [id number] Implanted:Qty: 1 on 07/15/2018 by Irving Mccauley MD at [facility] Bone Cement Left: Knee [employer] 07/31/2020 6191-1-010 / / [id number] [employer] 6191-1-010 Simplex P Radiopaque Full Dose Cement Bone Sterile - [id number] Implanted:Qty: 1 on 07/15/2018 by Irving Mccauley MD at [facility] Bone Cement Left: Knee [employer] 07/31/2020 6191-1-010 / / [id number] Baseplate Shoulder 15mm Length - [id number] Implanted:Qty: 1 on 12/10/2017 by Tayo Murray DO at [facility] Right: Shoulder [employer] 09/30/2022 [id number]-0960-0 30-15 / / [id number] Screw 5.5mm 20mm Length Shoulder - [id number] Implanted:Qty: 1 on 12/10/2017 by Tayo Murray DO at [facility] Right: Shoulder [employer] Rhea 07/29/2022 [id number]-0960-0 55-20 / / [id number] Screw And Cap 4.5mm 15mm Shoulder - [id number] Implanted:Qty: 2 on 12/10/2017 by Tayo Murray DO at [facility] Right: Shoulder [employer] 08/28/2020 [id number]-0960-0 45-15 / / [id number] Screw And Cap 4.5mm 20mm Shoulder - [id number] Implanted:Qty: 1 on 12/10/2017 by Tayo Murray DO at [facility] Right: Shoulder [employer] 06/01/2022 [id number]-0960-0 45-20 / / [id number] Screw And Cap 4.5mm 25mm Shoulder - [id number] Implanted:Qty: 1 on 12/10/2017 by Tayo Murray DO at [facility] Right: Shoulder Integra [employer] Rhea 05/30/2022 SSC-0960-0 45-25 / / [id number] Glenosphere Shoulder 5mm Eccentric - [id number] Implanted:Qty: 1 on 12/10/2017 by Tayo Murray DO at [facility] Right: Shoulder Integra [employer] Rhea 11/30/2021 GLS-0960-0 5E / / [id number] Integra [employer] Rhea [id number] 1 Titan 16.5mm 12.1mm 90.4mm Press Fit 12 Spline Modular - [id number] Implanted:Qty: 1 on 12/10/2017 by Tayo Murray DO at [facility] Right: Shoulder Integra [employer] Rhea 09/30/2021 STEM-0920- 025-11 / / [id number] Body Shoulder Small Reverse [id number] - [id number] Implanted:Qty: 1 on 12/10/2017 by Tayo Murray DO at [facility] Right: Shoulder Integra [employer] Rhea 04/02/2022 BBS-0960-2 1SML / / [id number] Liner +0mm 9.6mm Standard 20mm 2.7mm 38.7mm Shoulder Humeral - [id number] - [id number] Implanted:Qty: 1 on 12/10/2017 by Tayo Murray DO at [facility] Right: Shoulder Integra [employer] Rhea 04/30/2021 LNR-0960-0 0S / LNR-0960-0 0S / [id number] [employer] Nephew/Richco/O rtho [id number] Shannan Ii [id number] Knee Oval Component Patellar Uhmwpe - [id number] Implanted:Qty: 1 on 07/15/2018 by Irving Mccauley MD at [facility] Left: Knee [employer]/ Ortho [id number] 04/25/2028 [id number] / / [id number] [employer]/Richco/O rtho [id number] Journey Knee Left 3 Baseplate Tibial - [id number] Implanted:Qty: 1 on 07/15/2018 by Irving Mccauley MD at [facility] Left: Knee [employer]Rich[employer]/ Ortho [id number] 09/23/2027 [id number] / / [id number] [employer]/Richco/O rtho [id number] Journey Ii Cruciate Retain Knee Left 4 Component Femoral Cocr - [id number] Implanted:Qty: 1 on 07/15/2018 by Irving Mccauley MD at [facility] Left: Knee [employer]Rich[employer]/ Ortho [id number] 12/06/2027 [id number] / / [id number] [employer]/Richco/O rtho [id number] Journey Ii Left 3-4 Deep [facility] Insert Articular Xlpe - [id number] Implanted:Qty: 1 on 07/15/2018 by Irving Mccauley MD at [facility] Left: Knee [employer]Rich[employer]/ Ortho [id number] 03/09/2026 [id number] / / [id number] Explanted Type Area Janitor Helper Device Identifier Shelf Expiration Date Model / Serial / Lot [employer] [id number] 2mm 150mm Elbow Shoulder Guide Pin Orthopedic - [id number] Explanted:Qty: 2 on 12/10/2017 at [facility] Right: Shoulder Integra [employer] [id number] / / Procedures Procedure Name Priority Date/Time Associated Diagnosis Comments US VEIN DUPLEX LOWER EXTREMITY RIGHT LIMITED Schedule Routine, Read Routine (OP Routine) 10/18/2024 10:48 AM CDT XR KNEE RIGHT 4 OR MORE VIEWS Schedule Routine, Read Routine (OP Routine) 10/18/2024 10:47 AM CDT URINE CULTURE Routine 09/17/2024 12:32 PM CDT Frequent UTI EGFR Routine 09/16/2024 3:06 PM CDT Stage 3a chronic kidney disease (HCC) TSH Routine 09/16/2024 3:06 PM CDT Acquired hypothyroidism BASIC METABOLIC PANEL Routine 09/16/2024 3:06 PM CDT Stage 3a chronic kidney disease (HCC) DEXA AXIAL SKELETON BONE DENSITY 1 OR MORE SITES Schedule Routine, Read Routine (OP Routine) 12/29/2019 9:59 AM CDT Postmenopause from Last 3 Months or Most Recently Relevant to Health Maintenance Results * US Vein Duplex Lower Extremity Right Limited (10/18/2024 10:48 AM CDT) Anatomical Region Laterality Modality Vascular Right Ultrasound us Historical Provider MD PIPER US PROCEDURES Final R esult * XR Knee Right 4 or More Views (10/18/2024 10:47 AM CDT) Anatomical Region Laterality Modality Lower Extremities, Knee Right Radiogra phic Imaging Historical Provider MD PIPER XR PROCEDURES Final R esult * (ABNORMAL) Urine culture Urine, clean voided (09/17/2024 12:32 PM CDT) Report Final Report: Greater than or equal to 100,000 colonies/mL of Citrobacter freundii complex Plus growth of clinically insignificant bacterial lashonda. (.) Comment:Testing performed by : [facility], [address] [place]., [address] Organism CITROBACTER FREUNDII COMPLEX AAMIR Organism PLUS GROWTH OF CLINICALLY INSIGNIFICANT LASHONDA. AAMIR Urine, clean voided 09/17/2024 12:32 PM CDT 09/18/2024 12:16 AM CDT Narrative [facility] - 09/19/2024 3:50 PM CDT Testing performed by [facility] ([phone]) Organism Antibiotic Method Susceptibility Citrobacter freundii complex [...] - GENERAL OR DERABLES Final Result AAMIR [address] [address] Department [place] [address] * eGFR (09/16/2024 3:06 PM CDT) eGFR [...] ORDERABLES Final Re sult Performing Organization Address [facility] Co de Phone Number [facility] [address] [place] [address] * TSH (09/16/2024 3:06 PM CDT) Thyroid Stimulating Hormone 3.35 0.30 - 4.20 mcIUnit/mL Blood 09/16/2024 3:06 PM CDT 09/16/2024 10:39 PM CDT Tracy Hernández NP LAB BLOOD ORDERABLES Final Re sult Performing Organization Address City/[facility]/ZIP Co de Phone Number AAMIR [address] [address] [facility] [place] [address] * Basic metabolic panel (09/16/2024 3:06 PM CDT) Sodium 139 135 - 145 mmol/L Potassium, pl 4.1 3.3 - 4.9 mmol/L [facility] Chloride 100 97 - 110 mmol/L [facility] CO2 26 22 - 32 mmol/L [facility] Anion gap 13 2 - 15 mmol/L [facility] BUN 24 6 - 25 mg/dL [facility] Creatinine 0.74 0.60 - 1.10 mg/dL [facility] Glucose 136 70 - 199 mg/dL [facility] Comment: Interpretive Data Fasting glucose [...] 2022. Calcium 8.8 8.5 - 10.3 mg/dL [facility] Blood 09/16/2024 3:06 PM CDT 09/16/2024 10:39 PM CDT us Tracy Hernández NP LAB BLOOD ORDERABLES Final Re sult [facility] [id number] [address] Department [place] [address] * Dexa Axial Skeleton Bone [...] Dual x-ray absorptiometry (DEXA) was performed using Holo[employer] system. GENERAL GUIDELINES: According to WHO guidelines, [...] Bone mineral density 1.054 g/sq/cm. Procedure Note Prnaay Zavala MD - 12/29/2019 STUDY DESCRIPTION: DEXA AXIAL SKELETON BONE DENSITY 1 OR MORE SITES CLINICAL INDICATIONS: Bone density screening, asymptomatic. Postmenopausal COMPARISON: None TECHNIQUE: Dual x-ray absorptiometry (DEXA) was performed using [email or web address] system. 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
--- OUTSIDE RECORDS SUMMARY | 2024-11-10 16:55 | XMS_ITS | Encounter Summary ---
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
== END 2024-11-10 16:52 | disposition home or self-care (01) ==
PROVIDERS: PCP Nurse Practitioner Family; Visit Provider Nurse Practitioner Family
DX: R10.9 Unspecified abdominal pain (principal)
CPT/HCPCS: 74176

== ENCOUNTER 2024-11-11 13:10 | Outpatient (CLI) | payer MEDICARE, MEDICAID, SELFPAY ==
--- OUTSIDE RECORDS SUMMARY | 2022-07-02 09:38 | XMS_ITS | Continuity of Care Document ---
Author Organization [facility] Address [address] [place] [address] Phone Care Team Providers Care Copy Lathe Tender Name Role Phone Lee Wright MD Unavailable Unavailable Procedures Procedure Date INJ SPINE CERV/THOR W/ IMAGING GUIDANCE SURGICAL TRAY LOW OSMOLAR CONTRAST (200 TO 299 MG IODI NE) Injection, Triamcinolone Acetonide, 10mg Advance Directives Directive Yes / No Effective Date File Name No Information Encounters Encounter Description Practice Location Reason(s) For Visit Diagnoses Date Provider Providers Copied on Encounter [facility], [address], [place], [place], [address], tel:[phone] [facility] No Information Kyle Julian [address] [place], [place], [id number], . tel:[phone] [facility], [address], [place], [place], [address], tel:[phone] [facility] No Information Kyle Julian [address] [place], [place], [address], . tel:[phone] Referring Provider: Manuela Shah [address] [place] [address], [place], [address]. tel:[phone] Family History Family Member Type Diagnosis Age At Onset No Information Payers Payer name Insurance type Covered republican ID Authoriza tion(s) MEDICARE [id number] [facility] [id number] Social History Type Description Quantity Date Captured [...]
--- OUTSIDE RECORDS SUMMARY | 2024-11-11 14:57 | XMS_ITS | Clinical Summary ---
Author Organization [facility] Address [address] [place] [address] Care Team Providers Care Datastage Consultant Name Role Phone Tracy Hernández NP Primary Care Provider Allergies Active Allergy Reactions Criticality Noted Date [...] once daily 180 capsule 1 08/08/19 24 025 Discontinued(Re order) amLODIPine (NORVASC) 5 mg [...] mouth once daily 90 capsule 1 10/06/19 025 Discontinued(Re order) LORazepam (ATIVAN) 0.5 mg tablet TAKE 1 TABLET BY MOUTH TWICE DAILY NEEDED FOR ANXIETY 60 tablet 1 06/22/19 025 Discontinued clindamycin (CLEOCIN) 150 mg capsule Take 1 capsule (150 mg total) by mouth 4 (four) times a day 08/24/19 25 025 Discontinued( erapy completed) metroNIDAZOLE (FLAGYL) 500 mg tablet Take 1 tablet (500 mg total) by mouth 2 (two) times a day 08/28/19 025 Discontinued( erapy completed) traMADoL (ULTRAM) 50 [...] CDT): Has followed up with GI and Mau has improved the chronic constipation. 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 Will continue Ambien at bedtime p.r.n. Assessment & Plan (07/26/2024 9:29 PM CDT): Continues on zolpidem. Assessment & Plan (03/30/2024 12:53 PM SUPERVISOR OPERATIONS): Stable, continue Zolpidem Assessment & Plan (12/29/2023 1:26 PM CDT): Worse. Will switch to an ER Zolpidem. Dermatochalasis of both upper eyelids 10/15/2022 Assessment & Plan (10/16/2023 4:47 PM CDT): Pt not bothered, monitor Assessment & Plan (10/15/2022 12:55 PM CDT): Not v/s, monitor Atherosclerosis of aorta 05/09/2022 Overview (05/09/2022): 05/09/21- xray Assessment & Plan (03/30/2024 12:52 PM SUPERVISOR OPERATIONS): Stable, continue aspirin and Atorvastatin Assessment & Plan (09/16/2023 10:46 AM CDT): Stable, continue Atorvastatin and aspirin. Assessment & Plan (01/13/2023 10:31 AM SUPERVISOR OPERATIONS): Stable, continue aspirin and Atorvastatin Encounter for Medicare annual wellness exam 05/02 Assessment & Plan (03/30/2024 12:49 PM SUPERVISOR OPERATIONS): Please see below for a list of your medical conditions and recommendations. Assessment & Plan (01/13/2023 10:30 AM SUPERVISOR OPERATIONS): Please see below for a list of your medical conditions and recommendations. Assessment & Plan (01/03/2022 1:23 PM CDT): Please see below for a list of your medical conditions and recommendations. Assessment & Plan (05/23/2020 10:33 AM CDT): Please see below for a list of your medical conditions and recommendations. Atherosclerosis of both carotid arteries 020 Assessment & Plan (03/30/2024 12:53 PM SUPERVISOR OPERATIONS): Stable, continue aspirin and Atorvastatin Assessment & Plan (09/16/2023 10:47 AM CDT): Stable, continue Atorvastatin and aspirin Assessment & Plan (01/13/2023 10:32 AM SUPERVISOR OPERATIONS): Stable, continue aspirin and Atorvastatin Assessment & Plan (01/03/2022 1:32 PM CDT): Stable, continue aspirin and Atorvastatin. Assessment & Plan (05/03/2021 11:10 AM SUPERVISOR OPERATIONS): Stable, continue Atorvastatin and aspirin Assessment & [...] Assessment & Plan (04/15/2017 12:43 PM SUPERVISOR OPERATIONS): Having increased urinary frequency but no pain, feels similar to UTIs in the past. UA today with just trace blood, negative for leuks and nitrites Advised to keep hydrated and will send UA for culture BMI 28.0-28.9,adult 04/15/2017 Assessment & Plan (10/08/2017 11:47 AM CDT): Try to cut back on calories. Most people should eat between 3138-0799 calories to lose weight. Decrease your carbohydrate [...] Assessment & Plan (04/15/2017 11:14 AM SUPERVISOR OPERATIONS): BMI Follow-up includes: nutrition counseling and exercise [...] Assessment & Plan (05/03/2021 11:10 AM SUPERVISOR OPERATIONS): Stable, continue Gabapentin and Duloxetine Assessment & Plan (12/19/2019 7:35 PM CDT): Stable, continue duloxetine Assessment & Plan (06/14/2019 8:10 AM CDT): Requires chronic duloxetine and gabapentin therapy. Does see pain management at times. Assessment & Plan (04/15/2017 12:40 PM SUPERVISOR OPERATIONS): Improved and using lidocaine patches which help. Suspect this is more from bulging disc than it is from UTI and patient agrees. Major depression single episode, in partial amanda ssion 08/28/2016 Assessment & Plan (10/25/2024 2:55 PM CDT): Stable, chronic. Continue duloxetine Assessment & Plan (03/30/2024 12:53 PM SUPERVISOR OPERATIONS): Stable, continue Duloxetine Assessment & Plan (12/29/2023 1:26 PM CDT): Stable, continue Duloxetine Assessment & Plan (01/13/2023 10:33 AM SUPERVISOR OPERATIONS): Stable, continue Duloxetine Assessment & Plan (09/10/2022 3:17 PM CDT): Improved. Continue Duloxetine Assessment & Plan (05/03/2022 2:59 PM SUPERVISOR OPERATIONS): Stable, continue Duloxetine Assessment & Plan (01/03/2022 1:30 PM CDT): Intermittent. Continue Duloxetine. Assessment & Plan (05/03/2021 11:09 AM SUPERVISOR OPERATIONS): Chronic and unchanged. Continue Duloxetine Assessment & [...] Assessment & Plan (02/16/2018 1:25 PM SUPERVISOR OPERATIONS): Doing well with the clonazepam and duloxetine Assessment & Plan (04/15/2017 12:42 PM SUPERVISOR OPERATIONS): Still teary in the room over the [...] Future Assessment & Plan (03/30/2024 12:50 PM SUPERVISOR OPERATIONS): Stable, continue levothyroxine Assessment & Plan (12/29/2023 1:24 PM CDT): Stable, continue levothyroxine Assessment & Plan (09/16/2023 10:46 AM CDT): Stable? Will recheck today. Assessment & Plan (01/13/2023 10:31 AM SUPERVISOR OPERATIONS): Stable, continue levothyroxine. Assessment & Plan (09/10/2022 3:15 PM CDT): Stable? Will recheck today. Assessment & Plan (05/03/2022 2:57 PM SUPERVISOR OPERATIONS): Stable? Will recheck today. Assessment & Plan (01/03/2022 1:24 PM CDT): Stable, continue levothyroxine Assessment & Plan (05/03/2021 11:08 AM SUPERVISOR OPERATIONS): Stable? Continue levothyroxine. Assessment & Plan (11/08/2020 5:23 PM CDT): Stable, continue levothyroxine Assessment & Plan (05/22/2020 7:58 PM CDT): Stable? Will recheck today. Chronic pain 02/03/2012 Overview (06/08/2016): Chronic pain Assessment & Plan (10/25/2024 2:55 PM CDT): Chronic low back pain and chronic knee pain. Continue tramadol. If knee pain worsens again she may asked to see Orthopedics here in [place] Assessment & Plan (09/10/2022 3:16 PM CDT): Chronic and unchanged. Continue Tramadol as needed. Assessment & Plan (06/12/2017 11:27 AM CDT): On 4 per day from 6 per day after shoulder is better and for athritis In low back pain and continue cutting back Hypercholesterolemia 11/29/2010 Assessment & Plan (07/26/2024 9:28 PM CDT): Lipid abnormalities are stable, reviewed previous lipid levels in [facility]. Continue statin therapy. Lipitor (atorvastatin) Order for lipid panel was given today to be obtained. Pt voiced understanding of lab drawn and continuation of current medication regimen. Assessment & Plan (03/30/2024 12:49 PM SUPERVISOR OPERATIONS): Continue low fat eating- limit fried foods, [...] Assessment & Plan (01/13/2023 10:30 AM SUPERVISOR OPERATIONS): Continue low fat eating- limit fried foods, [...] Assessment & Plan (05/03/2022 2:58 PM SUPERVISOR OPERATIONS): Continue low fat eating- limit fried foods, [...] Assessment & Plan (05/03/2021 11:09 AM SUPERVISOR OPERATIONS): Continue low fat eating- limit fried foods, [...] like she is doing well at assisted-living [facility] here in [place]. Continues on the duloxetine and lorazepam daily. Assessment & Plan (03/30/2024 1:37 PM SUPERVISOR OPERATIONS): Not controlled, continue Lorazepam as needed Assessment & Plan (01/13/2023 10:32 AM SUPERVISOR OPERATIONS): Stable, continue Duloxetine and Lorazepam as needed. [...] Assessment & Plan (05/03/2022 3:00 PM SUPERVISOR OPERATIONS): Chronic and unchanged. Continue Lorazepam as needed. [...] Assessment & Plan (03/30/2024 12:53 PM SUPERVISOR OPERATIONS): Try to eat smaller more frequent meals. [...] Assessment & Plan (01/13/2023 10:32 AM SUPERVISOR OPERATIONS): Try to eat smaller more frequent meals. [...] Assessment & Plan (05/03/2022 2:59 PM SUPERVISOR OPERATIONS): Try to eat smaller more frequent meals. [...] Assessment & Plan (05/03/2021 11:09 AM SUPERVISOR OPERATIONS): Try to eat smaller more frequent meals. [...] (06/12/2018): Added automatically from request for surgery [id number] Encounter for weight management 06/05/2018 07/22/2024 Dyslipidemia [...] Assessment & Plan (04/10/2018 4:07 PM SUPERVISOR OPERATIONS): The patient has done very well overall [...] Assessment & Plan (02/18/2018 11:58 AM SUPERVISOR OPERATIONS): Treatment options were discussed. The patient would [...] on calories. Most people should eat between 6384-4897 calories to lose weight. Decrease your carbohydrate [...] on calories. Most people should eat between 9381-5502 calories to lose weight. Decrease your carbohydrate [...] Assessment & Plan (04/15/2017 12:41 PM SUPERVISOR OPERATIONS): Will do ambulatory PT as she is [...] Assessment & Plan (03/30/2024 12:49 PM SUPERVISOR OPERATIONS): The blood pressure is adequately controlled. Ideally, [...] Assessment & Plan (01/13/2023 10:30 AM SUPERVISOR OPERATIONS): The blood pressure is adequately controlled. Ideally, [...] Assessment & Plan (05/03/2022 2:57 PM SUPERVISOR OPERATIONS): The blood pressure is adequately controlled. Ideally, [...] Assessment & Plan (05/03/2021 11:08 AM SUPERVISOR OPERATIONS): The blood pressure is adequately controlled. Ideally, [...] Assessment & Plan (03/30/2024 12:53 PM SUPERVISOR OPERATIONS): Continue to increase water intake. Limit use [...] Assessment & Plan (01/13/2023 10:32 AM SUPERVISOR OPERATIONS): Continue to increase water intake. Limit use of NSAIDs including Ibuprofen, Aleve, Motrin, etc. Continue aerobic exercise and maintain a healthy weight. Assessment & Plan (09/10/2022 3:20 PM CDT): Continue to increase water intake. Limit use of NSAIDs including Ibuprofen, Aleve, Motrin, etc. Continue aerobic exercise and maintain a healthy weight. Assessment & Plan (05/03/2022 3:00 PM SUPERVISOR OPERATIONS): Continue to increase water intake. Limit use of NSAIDs including Ibuprofen, Aleve, Motrin, etc. Continue aerobic exercise and maintain a healthy weight. Assessment & Plan (01/03/2022 1:31 PM CDT): Continue to increase water intake. Limit use of NSAIDs including Ibuprofen, Aleve, Motrin, etc. Continue aerobic exercise and maintain a healthy weight. Assessment & Plan (05/03/2021 11:10 AM SUPERVISOR OPERATIONS): Continue to increase water intake. Limit use [...] Description 10/25/2024 2:00 PM CDT Office Visit [facility] at [address] [phone] Tracy Hernández NP Post-menopausal (Primary Dx); Drug-induced constipation; Other chronic pain; Chronic pain of right knee; Primary insomnia; Acquired hypothyroidism; Generalized anxiety disorder with panic attacks; Major depression single episode, in partial remission 10/18/2024 Orders Only [facility] at [address] [phone] ProviderChente MD 09/20/2024 Orders Only [facility] Care at [address] [phone] Tracy Hernández NP 09/20/[address] [facility] [place] [facility] [address], [address] [place] [address] Jackie Mckeon OD Encounter for observation for other suspected diseases and conditions ruled out (Primary Dx) 09/17/2024 12:32 PM CDT - 09/17/2024 11:59 PM CDT Hospital Encounter [address] [address] Frequent UTI Discharge Disposition: Discharge to home or self care 09/17/2024 12:30 PM CDT Lab [facility] at [address] [phone] 09/17/2024 Results Follow-Up [facility] at [address] [phone] Tracy Hernández NP Basic metabolic panel, TSH, eGFR, Urine culture Urine, clean voided 09/16/2024 3:06 PM CDT - 09/16/2024 11:59 PM CDT Hospital Encounter [address] [address] Stage 3a chronic kidney disease (HCC); Acquired hypothyroidism Discharge Disposition: Discharge to home or self care 09/16/2024 3:00 PM CDT Lab [facility] Lab at [address] [phone] 09/16/2024 2:00 PM CDT Office Visit [facility] at [address] [phone] Tracy Hernández NP Stage 3a chronic kidney disease (HCC) (Primary Dx); Frequent UTI; Acquired hypothyroidism 08/30/2024 Nurse Triage [facility] at [address] [phone] Tracy Hernández, RN NEUROSURGICAL 08/30/2024 Orders Only [facility] at [address] [phone] Tracy Hernández NP 08/30/2024 Telephone [facility] at [address] [phone] Trayc Hernández NP Med Refill 08/30/2024 Telephone [facility] [address] [address] Shanna Oakes NP 08/27/2024 Telephone [facility] [address] [place] [address] Manuela Shah NP 08/12/2024 Telephone [facility] at [address] [phone] Tracy Hernández NP Symptom [...] disease) stage 3, GFR 30-59 ml/min ([facility]) Ocular migraine 03/13/2015 Cataract removed Brain concussion [...] Baljit Oral Rivera Arthritis Maternal Grandfather Raúl Kennyey Diabetes Maternal Grandmother Daisha Flora siu Frailey Heart attack Mother Sowmya Zoyajg y Miguel age 62 Heart disease Mother [...] file Legal Sex Female 11:38 PM SUPERVISOR OPERATIONS Gender Identity Female 08/02/2019 9:59 AM CDT [...] 12/22/2014, 05/01 Medical Devices Implanted Type Area Drum Sander Offbearer Device Identifier Shelf Expiration Date Model / Serial / Lot [employer] 6191-1-010 Simplex P Radiopaque Full Dose Cement Bone Sterile - [id number] Implanted:Qty: 1 on 07/15/2018 by Irving Mccauley MD at [facility] Bone Cement Left: Knee [employer] 07/31/2020 6191-1-010 / / [id number] [employer] 6191-1-010 Simplex P Radiopaque Full Dose Cement Bone Sterile - [id number] Implanted:Qty: 1 on 07/15/2018 by Irving Mccauley MD at [facility] Bone Cement Left: Knee [employer] 07/31/2020 6191-1-010 / / [id number] Baseplate Shoulder 15mm Length - [id number] Implanted:Qty: 1 on 12/10/2017 by Tayo Murray DO at [facility] Right: Shoulder [employer] Rhea 09/30/2022 GBP-0960-0 30-15 / / [id number] Screw 5.5mm 20mm Length Shoulder - [id number] Implanted:Qty: 1 on 12/10/2017 by Tayo Murray DO at [facility] Right: Shoulder [employer] Rhea 07/29/2022 SCW-0960-0 55-20 / / [id number] Screw And Cap 4.5mm 15mm Shoulder - [id number] Implanted:Qty: 2 on 12/10/2017 by Tayo Murray DO at [facility] Right: Shoulder [employer] Rhea 08/28/2020 SSC-0960-0 45-15 / / [id number] Screw And Cap 4.5mm 20mm Shoulder - [id number] Implanted:Qty: 1 on 12/10/2017 by Tayo Murray DO at [facility] Right: Shoulder [employer] Rhea 06/01/2022 SSC-0960-0 45-20 / / [id number] Screw And Cap 4.5mm 25mm Shoulder - [id number] Implanted:Qty: 1 on 12/10/2017 by Tayo Murray DO at [facility] Right: Shoulder [employer] Rhea 05/30/2022 SSC-0960-0 45-25 / / [id number] Glenosphere Shoulder 5mm Eccentric - [id number] Implanted:Qty: 1 on 12/10/2017 by Tayo Murray DO at [facility] Right: Shoulder [employer] Rhea 11/30/2021 GLS-0960-0 5E / / [id number] [employer] Rhea [id number] 1 Titan 16.5mm 12.1mm 90.4mm Press Fit 12 Spline Modular - [id number] Implanted:Qty: 1 on 12/10/2017 by Tayo Murray DO at [facility] Right: Shoulder [employer] Rhea 09/30/2021 STEM-0920- 025-11 / / [id number] Body Shoulder Small Reverse [id number] - [id number] Implanted:Qty: 1 on 12/10/2017 by Tayo Murray DO at [facility] Right: Shoulder [employer] Rhea 04/02/2022 BBS-0960-2 1SML / / [id number] Liner +0mm 9.6mm Standard 20mm 2.7mm 38.7mm Shoulder Humeral - [id number] - [id number] Implanted:Qty: 1 on 12/10/2017 by Tayo Murray DO at [facility] Right: Shoulder [employer] Rhea 04/30/2021 LNR-0960-0 0S / LNR-0960-0 0S / [id number] [employer]/O rtho [id number] Shannan Ii [id number] Knee Oval Component Patellar Uhmwpe - [id number] Implanted:Qty: 1 on 07/15/2018 by Irving Mccauley MD at [facility] Left: Knee [employer]/ Ortho [id number] 04/25/2028 [id number] / / [id number] [employer]/O rtho [id number] Journey Knee Left 3 Baseplate Tibial - [id number] Implanted:Qty: 1 on 07/15/2018 by Irving Mccauley MD at [facility] Left: Knee [employer]/ Ortho [id number] 09/23/2027 [id number] / / [id number] [employer]/O rtho [id number] Journey Ii Cruciate Retain Knee Left 4 Component Femoral Cocr - [id number] Implanted:Qty: 1 on 07/15/2018 by Irving Mccauley MD at [facility] Left: Knee [employer]/ Ortho [id number] 12/06/2027 [id number] / / [id number] [employer]/O rtho [id number] Journey Ii Left 3-4 Deep [facility] Insert Articular Xlpe - [id number] Implanted:Qty: 1 on 07/15/2018 by Irving Mccauley MD at [facility] Left: Knee [employer]/ Ortho [id number] 03/09/2026 [id number] / / [id number] Explanted Type Area Drum Sander Offbearer Device Identifier Shelf Expiration Date Model / Serial / Lot Integra [employer] Rhea [id number] 2mm 150mm Elbow Shoulder Guide Pin Orthopedic - [id number] Explanted:Qty: 2 on 12/10/2017 at [facility] Right: Shoulder Integra [employer] [id number] / / Procedures Procedure Name Priority [...] Lower Extremities, Knee Right Radiogra phic Imaging us Historical Provider MD PIPER XR PROCEDURES Final R esult * (ABNORMAL) Urine culture Urine, clean voided (09/17/2024 12:32 PM CDT) Report Final Report: Greater than or equal to 100,000 colonies/mL of Citrobacter freundii complex Plus growth of clinically insignificant bacterial lashonda. (.) Comment:Testing performed by : [facility], [address] [place]., [address] Organism CITROBACTER FREUNDII COMPLEX [facility] Organism PLUS GROWTH OF CLINICALLY INSIGNIFICANT LASHONDA. [facility] Urine, clean voided 09/17/2024 12:32 PM CDT 09/18/2024 12:16 AM CDT Narrative [facility] - 09/19/2024 3:50 PM CDT Testing performed by [facility] Microbiology Laboratory ([phone]) Organism Antibiotic Method Susceptibility Citrobacter freundii complex [...] - GENERAL OR DERABLES Final Result AAMIR [address] [address] Department [place] [address] * eGFR (09/16/2024 3:06 PM CDT) eGFR [...] ORDERABLES Final Re sult Performing Organization Address [facility] Co de Phone Number AAMIR [phone] [address] [employer] [place], [place] [id number] * TSH (09/16/2024 3:06 PM CDT) Thyroid Stimulating Hormone 3.35 0.30 - 4.20 mcIUnit/mL Blood 09/16/2024 3:06 PM CDT 09/16/2024 10:39 PM CDT Tracy Hernández NP LAB BLOOD ORDERABLES Final Re sult Performing Organization Address City/[facility]/ZIP Co de Phone Number [facility] [address] [address] [facility] [place] [address] * Basic metabolic panel (09/16/2024 3:06 PM CDT) Sodium 139 135 - 145 mmol/L Potassium, pl 4.1 3.3 - 4.9 mmol/L [facility] Chloride 100 97 - 110 mmol/L [facility] CH CO2 26 22 - 32 mmol/L [facility] Anion gap 13 2 - 15 mmol/L [facility] BUN 24 6 - 25 mg/dL [facility] Creatinine 0.74 0.60 - 1.10 mg/dL [facility] Glucose 136 70 - 199 mg/dL [facility] Comment: Interpretive Data Fasting glucose >/= [...] 2022. Calcium 8.8 8.5 - 10.3 mg/dL [facility] Blood 09/16/2024 3:06 PM CDT 09/16/2024 10:39 PM CDT us Tracy Hernández NP LAB BLOOD ORDERABLES Final Re sult [facility] [address] [address] Department [place] [address] * Dexa Axial Skeleton Bone Density 1 [...] Dual x-ray absorptiometry (DEXA) was performed using [employer] system. GENERAL GUIDELINES: According to WHO guidelines, [...] Dual x-ray absorptiometry (DEXA) was performed using [email or web address] system. GENERAL GUIDELINES: According to WHO guidelines, [...] Recently Relevant to Health Maintenance Insurance MEDICARE [facility] Address: [address] [address] [place] [address] COMMERCIAL GENERIC [facility] MEDICARE [facility] COMMERCIAL GENERIC MEDICARE COMMERCIAL GENERIC Advance Directives For more information, please contact: [phone] Documents on File Type Date Recorded Patient Hospice Clinical Manager Expl anation ADVANCE DIRECTIVE 08/20/2019 2:35 PM Power of Retanner-Medical ADVANCE DIRECTIVE 07/15/2018 11:14 AM ADVANCE DIRECTIVE [...] 3:25 PM 12/13/2017 4:26 PM Care Teams Datastage Consultant Relationship Specialty Start Date End Date Tracy Hernández NP [address] [facility] [address] [place] [address] PCP - General Family Medicine 07/22/24
--- OUTSIDE RECORDS SUMMARY | 2024-11-11 14:57 | XMS_ITS | Encounter Summary ---
Author Organization [facility] Healthcare Address [address] [place] [address] Care Team Providers Care Geometry Professor Name Role Phone Matt Painting MD Primary Care Provider [phone] Yesi Cook DPT Unavailable Unavailable Vernon Hernandez RN Unavailable Renetta Pearl MA Unavailable Shanna Oakes FITTER TYPE BAR AND SEGMENT Primary Care Provider [phone] Tracy Hernández FITTER TYPE BAR AND SEGMENT Primary Care Provider [phone] Encounter Details Date Type Department Care Team (Late st Contact Info) Description 06/24/[address] 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 Secondary choice is the [place] [facility] [place]. Pt informed that the referral will be sent upon admission for placement if PT recs SNF. SW will followafter surgery. documented in this encounter Plan of Treatment Not on file documented as of this encounter Visit Diagnoses Not on filedocumented in this encounter Care Teams Geometry Professor Relationship Specialty Start Date End Date Matt Painting MD [address] [facility] [address], [place] [address] PCP - General 05/31/16 12/08/19 Shanna Oakes NP [address] [place] [address] [address] [place] [address] PCP - General Internal Medicine 12/09/19 07/21/24 Tracy Hernández NP [address] [address] [place] [address] PCP - General Family Medicine 07/22/24 Yesi Cook DPT Physical Therapist Physical Therapy 07/30/17 03/06/20 Vernon Hernandez RN [address] [place], [place] [address]Rafael [address] [address] [facility] Outpatient Patient Navigator 07/20/18 10/15/18 Renetta Pearl, SONIA [address] [place] [address] [employer] Care [employer] Helicopter Pilot 07/21/18 07/21/18 documented as of this encounter
--- OUTSIDE RECORDS SUMMARY | 2024-11-11 14:57 | XMS_ITS | Encounter Summary ---
Author Organization [facility] Healthcare Address [address] [place] [address] Care Team Providers Care Store Gift Wrap Associate Name Role Phone Tracy Hernández NP Primary Care Provider [phone] Reason for Visit * Reason Onset Date Comments Dysuria 08/02/2024 IV Antibiotics 08/02/2024 Encounter Details Date Type Department Care Team (Late st Contact Info) Description 08/02/2024 Nurse Triage [facility] Primary Care at [address] [address] Tracy Hernández NP [address] [place] [address] [address] [place] [address] Social History Tobacco Use Types [...] on file 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 Warm transferred. Does message need to be routed? No Reason for Warm Transfer: Symptoms: Patient has Red flag symptoms, senior environmental consultant evaluated patient and directed patient to call [...] Tract Infection on Antibiotic Follow-up Call - [facility] * Telephone Encounter - Odette Zimmer RN [...] on filedocumented in this encounter Care Teams Store Gift Wrap Associate Relationship Specialty Start Date End Date Tracy Hernández NP [address] [address] PCP - General Family Medicine 07/22/24 documented as of this encounter
--- OUTSIDE RECORDS SUMMARY | 2024-11-11 14:57 | XMS_ITS | Encounter Summary ---
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
--- OUTSIDE RECORDS SUMMARY | 2024-11-11 14:57 | XMS_ITS | Patient Health Record ---
Author Organization [facility] Address [address] [facility] [address] [place] [address] Care Team Providers Care Snap Attacher Name Role Phone Irving Thomas Unavailable [phone] Reason For Referral No Information Medications Medication [...] W/U Status Risk Notes Problem Joint pain (28096028) Pain in unspecified joint (M25.50) Active confirmed Plan Of Treatment No Information Insurance Providers Payer Name Payer Address Payer Phone Subscriber Number Group Number Insured Name Patient Relationship to Insured Coverage Start Date Coverage End Date DO NOT USE AR [id number] Latasha Menard Self - patient is the insured DO NOT USE [id number] Latasha Menard Self - patient is the insured Medical (General) History Surgical History Surgery Date(Month/Year) Hysterectomy; 2020-12-04 Shoulder surgery; 2020-12-04 cataract; 2020-12-04 Hernia Repair; 2020-12-04 Knee surgery; 2020-12-04 ACL tear; 2020-12-04 Sinus Surgery; 2020-12-04
--- OUTSIDE RECORDS SUMMARY | 2024-11-11 14:57 | XMS_ITS | Encounter Summary ---
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
--- OUTSIDE RECORDS SUMMARY | 2024-11-11 14:57 | XMS_ITS | Encounter Summary ---
Author Organization [facility] Healthcare Address [address] [place] [address] Care Team Providers Care Apprentice Painter Neckties Name Role Phone Matt Painting MD Primary Care Provider [phone] Tyesha Abarca DPT Unavailable Unavailable Yesi oCok DPT Unavailable Unavailable Renetta Pearl MA Unavailable [phone] Vernon Hernandez RN Unavailable [phone] Vernon Hernandez RN Unavailable [phone] Renetta Pearl MA Unavailable [phone] Shanna Oakes ACCOUNTS MANAGER Primary Care Provider [phone] Tracy Hernández ACCOUNTS MANAGER Primary Care Provider [phone] Encounter Details Date Type Department Care Team (Late st Contact Info) Description 11/28/2017 Documentation [facility] Case Management [address] [place] [address] Opal Marsh MSW Social History Tobacco Use Types Packs/Day Years Used Date Smoking Tobacco: Never Smokeless Tobacco: Never Alcohol Use Standard Drinks/Week Comments No 0 (1 standard drink = 0.6 oz pur e alcohol) Comments Unknown Sex and Gender Information Value Date Recorded Sex Assigned at Not on file Legal Sex Female 11:38 PM RISK DEVELOPER Gender Identity Female 08/02/2019 9:59 AM CDT [...] on filedocumented in this encounter Care Teams Apprentice Painter Neckties Relationship Specialty Start Date End Date Matt Painting MD [address] [facility] [address], [place] [address] PCP - General 05/31/16 12/08/19 Shanna Oakes NP [address] [place] [address] [address] [place] [address] PCP - General Internal Medicine 12/09/19 07/21/24 Tracy Hernández NP [address] [facility] [address] [place] [address] PCP - General Family Medicine 07/22/24 Tyesha Abarca, KIMBERLY Physical Therapist Physical Therapy 04/30/17 02/08/18 Joyce, Yesi E., DPT Physical Therapist Physical Therapy 07/30/17 03/06/20 Renetta Pearl MA [address] [place] [address] ACO Care Editorial Writer 12/15/17 12/31/17 Vernon Hernandez RN [address] [place] [address] [address] [place], [place] [id number] Straightening Press Operator 01/01/18 02/11/18 Vernon Hernandez RN [address] [place] [address] [address] [place], [place] [id number] CJR Outpatient Plant Pathologist 07/20/18 10/15/18 Renetta Pearl MA [address] [place] [address] ACO Care Editorial Writer 07/21/18 07/21/18 documented as of this encounter
--- OUTSIDE RECORDS SUMMARY | 2024-11-11 14:57 | XMS_ITS | Encounter Summary ---
Author Organization [facility] Address [address] [place] [address] Phone Care Team Providers Care Second Hand Name Role Phone Matt Painting MD Primary Care Provider [phone] Tyesha Abarca DPT Unavailable Unavailable Yesi Cook DPT Unavailable Unavailable Renetta Pearl MA Unavailable [phone] Vernon Hernandez RN Unavailable [phone] Vernon Hernandez RN Unavailable [phone] Renetta Pearl MA Unavailable [phone] Shanna Oakes PRECAST WORKER Primary Care Provider [phone] Tracy Hernández PRECAST WORKER Primary Care Provider [phone] Encounter Details Date Type Department Care Team (Late st Contact Info) Description 06/12/2017 Orders Only [facility] ProviderChente MD [facility] [place] [address] Social History Tobacco Use Types Packs/Day Years Used Date Smoking Tobacco: Never Smokeless Tobacco: Never Alcohol Use Standard Drinks/Week Comments No 0 (1 standard drink = 0.6 oz pur e alcohol) Comments Unknown Sex and Gender Information Value Date Recorded Sex Assigned at Not on file Legal Sex Female 11:38 PM TUBING DRIER Gender Identity Female 08/02/2019 9:59 AM CDT [...] on filedocumented in this encounter Care Teams Second Hand Relationship Specialty Start Date End Date Matt Painting MD [address] [facility] [address] [place] [address] PCP - General 05/31/16 12/08/19 Shanna Oakes NP [address] [facility] [address] [place] [address] PCP - General Internal Medicine 12/09/19 07/21/24 Tracy Hernández NP [address] [facility] [address] [place] [address] PCP - General Family Medicine 07/22/24 Tyesha Abarca DPT Physical Therapist Physical Therapy 04/30/17 02/08/18 Yesi Cook DPT Physical Therapist Physical Therapy 07/30/17 03/06/20 Renetta Pearl MA [address] [facility] [address] [place] [address] ACO Care Chair Upholsterer 12/15/17 12/31/17 Vernon Hernandez, OPHELIA [address] [facility] [address] [place] [address] Box Toe Maker 01/01/18 02/11/18 Vernon Hernandez RN [address] [facility] [address] [place] [address] CJR Outpatient Heating Mechanic 07/20/18 10/15/18 Renetta Pearl MA [address] [facility] [address] [place], [place] [id number] ACO Care Chair Upholsterer 07/21/18 07/21/18 documented as of this encounter
--- OUTSIDE RECORDS SUMMARY | 2024-11-11 14:57 | XMS_ITS | Encounter Summary ---
Author Organization [facility] Address [address] [place] [address] Phone Care Team Providers Care Burglar Alarm Superintendent Name Role Phone Matt Painting MD Primary Care Provider [phone] Tyesha Abarca DPT Unavailable Unavailable Yesi Cook DPT Unavailable Unavailable Renetta Pearl MA Unavailable [phone] Vernon Hernandez RN Unavailable [phone] Vernon Hernandez RN Unavailable [phone] Renetta Pearl MA Unavailable [phone] Shanna Oakes LUNCHEONETTE OPERATOR Primary Care Provider [phone] Tracy Hernández LUNCHEONETTE OPERATOR Primary Care Provider [phone] Encounter Details Date Type Department Care Team (Late st Contact Info) Description 04/15/2017 Orders Only [facility] ProviderChente MD [facility] [place] [address] Social History Tobacco Use Types Packs/Day Years Used Date Smoking Tobacco: Never Smokeless Tobacco: Never Alcohol Use Standard Drinks/Week Comments No 0 (1 standard drink = 0.6 oz pur e alcohol) Comments Unknown Sex and Gender Information Value Date Recorded Sex Assigned at Not on file 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 us Historical Provider LAB BLOOD ORDERABLES Arline l Result documented in this encounter Visit Diagnoses Not on filedocumented in this encounter Care Teams Burglar Alarm Superintendent Relationship Specialty Start Date End Date Matt Painting MD [address] [facility] [address] [place] [address] PCP - General 05/31/16 12/08/19 Shanna Oakes NP [address] [place] [address] [address] [place] [address] PCP - General Internal Medicine 12/09/19 07/21/24 Tracy Hernández NP [address] [facility] [address] [place] [address] PCP - General Family Medicine 07/22/24 Tyesha Abarca DPT Physical Therapist Physical Therapy 04/30/17 02/08/18 Yesi Cook DPT Physical Therapist Physical Therapy 07/30/17 03/06/20 Renetta Pearl MA [address] [place] [address] [address] [place] [address] ACO Care Installer Soft Top 12/15/17 12/31/17 Vernon Hernandez, OPHELIA [address] [place] [address] [address] [place] [address] Learning And Development Associate 01/01/18 02/11/18 Vernon Hernandez RN [address] [facility] [address] [place], [place] [id number] CJR Outpatient Switchboard Troubleshooter 07/20/18 10/15/18 Renetta Pearl MA [address] [facility] [address] [place], [place] [phone] ACO Care Installer Soft Top 07/21/18 07/21/18 documented as of this encounter
[2024-11-16 07:09] LABS: Calprotectin, Fecal 604 ug/g (0-120)
== END 2024-11-11 13:11 | disposition home or self-care (01) ==
PROVIDERS: PCP Nurse Practitioner Family; Visit Provider Nurse Practitioner Family
DX: R19.4 Change in bowel habit (principal); R10.9 Unspecified abdominal pain; R19.5 Other fecal abnormalities
CPT/HCPCS: 83993

== ENCOUNTER 2024-12-03 09:48 | Inpatient (IN) | payer MEDICARE, MEDICAID, SELFPAY ==
--- OUTSIDE RECORDS SUMMARY | 2022-07-02 09:38 | XMS_ITS | Continuity of Care Document ---
Author Organization [facility] Address [address] [place] [address] Phone Care Team Providers Care Net Coordinator Name Role Phone Lee Wright MD Unavailable Unavailable Procedures Procedure Date INJ SPINE CERV/THOR W/ IMAGING GUIDANCE SURGICAL TRAY LOW OSMOLAR CONTRAST (200 TO 299 MG IODI NE) Injection, Triamcinolone Acetonide, 10mg Advance Directives Directive Yes / No Effective Date File Name No Information Encounters Encounter Description Practice Location Reason(s) For Visit Diagnoses Date Provider Providers Copied on Encounter [facility], [address], [place], [place], [id number], tel:[phone] [facility] No Information Kyle Julian [address], [place], [id number], . tel:[phone] [facility], [address], [place], [place], [address], tel:[phone] [facility] No Information Kyle Julian [address], [place], [address], . tel:[phone] Referring Provider: Manuela Shah [address] [place] [address], [place], [address]. tel:[phone] Family History Family Member Type Diagnosis Age At Onset No Information Payers Payer name Insurance type Covered alliance party ID Authoriza tion(s) MEDICARE [id number] [facility] [id number] Social History Type Description Quantity Date Captured [...]
--- OUTSIDE RECORDS SUMMARY | 2022-07-02 09:38 | XMS_ITS | Continuity of Care Document ---
Author Organization [facility] Address [address] [place] [address] Phone Care Team Providers Care Utilization Management Manager Name Role Phone Lee Wright MD Unavailable Unavailable Procedures Procedure Date INJ SPINE CERV/THOR W/ IMAGING GUIDANCE SURGICAL TRAY LOW OSMOLAR CONTRAST (200 TO 299 MG IODI NE) Injection, Triamcinolone Acetonide, 10mg Advance Directives Directive Yes / No Effective Date File Name No Information Encounters Encounter Description Practice Location Reason(s) For Visit Diagnoses Date Provider Providers Copied on Encounter [facility], [address], [place], [place], [address], tel:[phone] [facility] No Information Kyle Julian [address] [place], [place], [id number], . tel:[phone] [facility], [address], [place], [place], [address], tel:[phone] [facility] No Information Kyle Julian [address] [place], [place], [id number], . tel:[phone] Referring Provider: Manuela Shah [address] [place] [address], [place], [address]. tel:[phone] Family History Family Member Type Diagnosis Age At Onset No Information Payers Payer name Insurance type Covered green party ID Authoriza tion(s) MEDICARE [id number] [facility] [id number] Social History Type Description Quantity Date Captured [...]
--- NOTE | ~2024-12-03 | CT_ITS ---
Latasha Menard EXAMINATION: CT abdomen pelvis w con COMPARISON: None HISTORY: left lower quadrant abdominal pain/pelvic pain TECHNIQUE: Axial images were obtained through the abdomen, pelvis post administration of IV contrast. Oral contrast was also administered. Coronal reconstruction images were obtained from the axial views. CT scan performed using dose optimization techniques including the following automated exposure control; adjustment of mA and/or kV; use of iterative reconstruction technique. Automatic exposure control was used to reduce radiation dose. Permanent radiation dose record is archived to PACS. FINDINGS: CT abdomen: LUNG BASES: The lung bases are clear. The visualized portions of the heart and pericardium are unremarkable. LIVER: Mild hepatic steatosis. Portal vein patent. No intrahepatic biliary duct dilatation. SPLEEN: Unremarkable. KIDNEYS: Right Kidney: Right kidney subcentimeter probable renal cysts. Left Kidney: Left kidney subcentimeter probable renal cysts. ADRENAL GLANDS: Unremarkable. PANCREAS: Severe atrophy of the pancreas. GALLBLADDER/BILIARY: Gallbladder not identified. STOMACH AND ESOPHAGUS: Large hiatal hernia. Hyperemia of the gastric mucosa. BOWEL/MESENTERY: Duodenal diverticulum 2.5 x 2 cm. Moderate diverticulosis, no colitis or diverticulitis. Moderate fecal content. Appendix not clearly identified. No stranding within the mesentery. There are thickened or dilated loops of small bowel. There are some dilated loops of large bowel maximally measuring 8.9 cm. ADENOPATHY/RETROPERITONEUM: No lymphadenopathy. AORTA/VASCULATURE: Normal caliber aorta. FREE FLUID OR FREE AIR: No free fluid.. CT pelvis: SOLID ORGANS/REPRODUCTIVE: Post hysterectomy. No adnexal mass. BLADDER: Circumferential thickening of the bladder wall with mild areas of hyperemia. OSSEOUS STRUCTURES: No acute osseous abnormality.No suspicious lesions. OVERLYING SOFT TISSUES: Unremarkable. IMPRESSION: 1. Nonspecific probable colonic ileus. Follow-up suggested to assess resolution. 2. Cystitis. 3. Mild gastritis. 4. Incidental findings above Reviewed, dictated and finalized at location P. IMPRESSION: 1. Nonspecific probable colonic ileus. Follow-up suggested to assess resolution . 2. Cystitis. 3. Mild gastritis. 4. Incidental findings above
--- OUTSIDE RECORDS SUMMARY | 2024-12-03 09:54 | XMS_ITS | Encounter Summary ---
Author Organization [facility] Address [address] [place] [address] Phone Care Team Providers Care Information Technology Analyst Name Role Phone Matt Painting MD Primary Care Provider [phone] Tyesha Abarca DPT Unavailable Unavailable Yesi Cook DPT Unavailable Unavailable Renetta Pearl MA Unavailable [phone] Vernon Hernandez RN Unavailable [phone] Vernon Hernandez RN Unavailable [phone] Renetta Pearl MA Unavailable [phone] Shanna Oakes YARD RIGGER Primary Care Provider [phone] Tracy Hernández YARD RIGGER Primary Care Provider [phone] Encounter Details Date Type Department Care Team (Late st Contact Info) Description 04/15/2017 Orders Only [facility] ProviderCehnte MD [facility] [place] [address] Social History Tobacco Use Types Packs/Day Years Used Date Smoking Tobacco: Never Smokeless Tobacco: Never Alcohol Use Standard Drinks/Week Comments No 0 (1 standard drink = 0.6 oz pur e alcohol) Comments Unknown Sex and Gender Information Value Date Recorded Sex Assigned at Not on file Legal Sex Female 11:38 PM 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 us Historical Provider LAB BLOOD ORDERABLES Arline l Result documented in this encounter Visit Diagnoses Not on filedocumented in this encounter Care Teams Information Technology Analyst Relationship Specialty Start Date End Date Matt Painting MD [address] [facility] [address] [place] [address] PCP - General 05/31/16 12/08/19 Shanna Oakes NP [address] [place] [address] [address] [place] [address] PCP - General Internal Medicine 12/09/19 07/21/24 Tracy Hernández NP [address] [facility] [address] [place] [address] PCP - General Family Medicine 07/22/24 Tyesha Abarca DPT Physical Therapist Physical Therapy 04/30/17 02/08/18 Yesi Cook DPT Physical Therapist Physical Therapy 07/30/17 03/06/20 Renetta Pearl MA [address] [place] [address] [address] [place] [address] ACO Care Material Engineer 12/15/17 12/31/17 Vernon Hernandez, OPHELIA [address] [place] [address] [address] [place] [address] Meter Attendant 01/01/18 02/11/18 Vernon Hernandez RN [address] [facility] [address] [place], [place] [phone] CJR Outpatient Supervisor Electronic Testing 07/20/18 10/15/18 Renetta Pearl MA [address] [facility] [address] [place], [place] [phone] ACO Care Material Engineer 07/21/18 07/21/18 documented as of this encounter
--- OUTSIDE RECORDS SUMMARY | 2024-12-03 09:54 | XMS_ITS | Encounter Summary ---
Author Organization [facility] Address [address] [place] [address] Phone Care Team Providers Care Pet Care Technician Name Role Phone Matt Painting MD Primary Care Provider [phone] Tyesha Abarca DPT Unavailable Unavailable Yesi Cook DPT Unavailable Unavailable Renetta Pearl MA Unavailable [phone] Vernon Hernandez RN Unavailable [phone] Vernon Hernandez RN Unavailable [phone] Renetta Pearl MA Unavailable [phone] Shanna Oakes BROADCAST SYSTEMS ENGINEER Primary Care Provider [phone] Tracy Hernández BROADCAST SYSTEMS ENGINEER Primary Care Provider [phone] Encounter Details Date Type Department Care Team (Late st Contact Info) Description 06/12/2017 Orders Only [facility] ProviderChente MD [facility] [place] [address] Social History Tobacco Use Types Packs/Day Years Used Date Smoking Tobacco: Never Smokeless Tobacco: Never Alcohol Use Standard Drinks/Week Comments No 0 (1 standard drink = 0.6 oz pur e alcohol) Comments Unknown Sex and Gender Information Value Date Recorded Sex Assigned at Not on file Legal Sex Female 11:38 PM ROUTE SALES MANAGER Gender Identity Female 08/02/2019 9:59 AM [...] on filedocumented in this encounter Care Teams Pet Care Technician Relationship Specialty Start Date End Date Matt Painting MD [address] [facility] [address] [place] [address] PCP - General 05/31/16 12/08/19 Shanna Oakes NP [address] [facility] [address] [place] [address] PCP - General Internal Medicine 12/09/19 07/21/24 Tracy Hernández NP [address] [facility] [address] [place] [address] PCP - General Family Medicine 07/22/24 Tyesha Abarca DPT Physical Therapist Physical Therapy 04/30/17 02/08/18 Yesi Cook DPT Physical Therapist Physical Therapy 07/30/17 03/06/20 Renetta Pearl MA [address] [facility] [address] [place] [address] ACO Care Flooring Sales Manager 12/15/17 12/31/17 Vernon Hernandez, OPHELIA [address] [facility] [address] [place] [address] Instructor Programmable Controllers 01/01/18 02/11/18 Vernon Hernandez RN [address] [facility] [address] [place] [address] CJR Outpatient Lead Sprinkler 07/20/18 10/15/18 Renetta Pearl MA [address] [facility] [address] [place], [place] [phone] ACO Care Flooring Sales Manager 07/21/18 07/21/18 documented as of this encounter
--- OUTSIDE RECORDS SUMMARY | 2024-12-03 09:55 | XMS_ITS | Clinical Summary ---
Author Organization [facility] Address [address] [place] [address] Care Team Providers Care Lineman A Class Name Role Phone Tracy Hernández NP Primary Care Provider [phone] Allergies Active Allergy Reactions Criticality Noted Date Comments Nitrofurantoin Nausea only Low Nitrofurantoin Monohyd/M-Cryst Other (See comments) Low 11/20/2016 Affects liver per pt Sulfa (Sulfonamide Antibiotics) Other (See comments) Low Reaction: GI macrobid, nitrofurantin, Nausea and tears up my Liver Sulfamethoxazole-Trimeth oprim Trimethoprim Stomach upset Low 09/09/2024 Valsartan Angioedema High 08/08/2017 Medications aspirin 81 mg enteric coated tabletIndicatio ns:Atherosclero sis of both carotid arteries Take 1 tablet (81 mg total) by mouth daily 30 tablet 11 0 Active busPIRone (BUSPAR) 5 mg tabletIndicatio ns:Generalized Anxiety Disorder Take 1 tablet (5 mg total) by mouth 2 (two) times a day 180 tablet 3 5 Active zolpidem CR (AMBIEN CR) 6.25 mg CR tabletIndicatio ns:Insomnia Take 1 tablet (6.25 mg total) by mouth nightly as needed for sleep 30 tablet 5 0602/06/20 Active Linzess 72 mcg capsule Active levothyroxine (SYNTHROID) 100 mcg tablet TAKE 1 TABLET BY MOUTH DAILY BEFORE BREAKFAST 90 tablet Active LORazepam (ATIVAN) 0.5 mg tablet TAKE 1 TABLET BY MOUTH TWICE DAILY NEEDED FOR ANXIETY 60 tablet Active amLODIPine (NORVASC) 5 mg tablet TAKE 1 TABLET BY MOUTH ONCE DAILY 30 tablet 1 Active traMADoL (ULTRAM) 50 mg tablet Take 1 tablet by mouth twice daily as needed for pain must last 30 days 60 tablet 1 Active gabapentin (NEURONTIN) 300 mg capsule Take 1 capsule (300 mg total) by mouth daily 90 capsule 1 Active atorvastatin (LIPITOR) 40 mg tablet Take 1 tablet (40 mg total) by mouth daily 90 tablet [address] (CYMBALTA) 60 mg capsule Take 2 capsules (120 mg total) by mouth daily 180 capsule 1 Active hydroCHLOROthia zide 12.5 mg tablet Take 1 tablet/capsule (12.5 mg total) by mouth daily 90 tablet/capsul e 1 Active omeprazole (PriLOSEC) 20 mg capsule Take 1 capsule (20 mg total) by mouth daily 90 capsule 3 Active potassium chloride ER 20 mEq CR tablet Take 1 tablet (20 mEq total) by mouth daily 90 tablet 3 Active Active Problems Problem Noted Date Diagnosed Date [...] zolpidem. Assessment & Plan (03/30/2024 12:53 PM RETAIL WIRELESS SALES CONSULTANT): Stable, continue Zolpidem Assessment & Plan (12/29/2023 1:26 PM CDT): Worse. Will switch to an ER Zolpidem. Dermatochalasis of both upper eyelids 10/15/2022 Assessment & Plan (10/16/2023 4:47 PM CDT): Pt not bothered, monitor Assessment & Plan (10/15/2022 12:55 PM CDT): Not v/s, monitor Atherosclerosis of aorta 05/09/2022 Overview (05/09/2022): 05/09/21- xray Assessment & Plan (03/30/2024 12:52 PM RETAIL WIRELESS SALES CONSULTANT): Stable, continue aspirin and Atorvastatin Assessment & Plan (09/16/2023 10:46 AM CDT): Stable, continue Atorvastatin and aspirin. Assessment & Plan (01/13/2023 10:31 AM RETAIL WIRELESS SALES CONSULTANT): Stable, continue aspirin and Atorvastatin Encounter for Medicare annual wellness exam 05/02 Assessment & Plan (03/30/2024 12:49 PM RETAIL WIRELESS SALES CONSULTANT): Please see below for a list of your medical conditions and recommendations. Assessment & Plan (01/13/2023 10:30 AM RETAIL WIRELESS SALES CONSULTANT): Please see below for a list of your medical conditions and recommendations. Assessment & Plan (01/03/2022 1:23 PM CDT): Please see below for a list of your medical conditions and recommendations. Assessment & Plan (05/23/2020 10:33 AM CDT): Please see below for a list of your medical conditions and recommendations. Atherosclerosis of both carotid arteries 020 Assessment & Plan (03/30/2024 12:53 PM RETAIL WIRELESS SALES CONSULTANT): Stable, continue aspirin and Atorvastatin Assessment & Plan (09/16/2023 10:47 AM CDT): Stable, continue Atorvastatin and aspirin Assessment & Plan (01/13/2023 10:32 AM RETAIL WIRELESS SALES CONSULTANT): Stable, continue aspirin and Atorvastatin Assessment & Plan (01/03/2022 1:32 PM CDT): Stable, continue aspirin and Atorvastatin. Assessment & Plan (05/03/2021 11:10 AM RETAIL WIRELESS SALES CONSULTANT): Stable, continue Atorvastatin and aspirin Assessment & [...] UTI Assessment & Plan (04/15/2017 12:43 PM RETAIL WIRELESS SALES CONSULTANT): Having increased urinary frequency but no pain, feels similar to UTIs in the past. UA today with just trace blood, negative for leuks and nitrites Advised to keep hydrated and will send UA for culture BMI 28.0-28.9,adult 04/15/2017 Assessment & Plan (10/08/2017 11:47 AM CDT): Try to cut back on calories. Most people should eat between 8827-8642 calories to lose weight. Decrease your carbohydrate [...] help. Assessment & Plan (04/15/2017 11:14 AM RETAIL WIRELESS SALES CONSULTANT): BMI Follow-up includes: nutrition counseling and exercise [...] management. Assessment & Plan (05/03/2021 11:10 AM RETAIL WIRELESS SALES CONSULTANT): Stable, continue Gabapentin and Duloxetine Assessment & Plan (12/19/2019 7:35 PM CDT): Stable, continue duloxetine Assessment & Plan (06/14/2019 8:10 AM CDT): Requires chronic duloxetine and gabapentin therapy. Does see pain management at times. Assessment & Plan (04/15/2017 12:40 PM RETAIL WIRELESS SALES CONSULTANT): Improved and using lidocaine patches which help. Suspect this is more from bulging disc than it is from UTI and patient agrees. Major depression single episode, in partial amanda ssion 08/28/2016 Assessment & Plan (10/25/2024 2:55 PM CDT): Stable, chronic. Continue duloxetine Assessment & Plan (03/30/2024 12:53 PM RETAIL WIRELESS SALES CONSULTANT): Stable, continue Duloxetine Assessment & Plan (12/29/2023 1:26 PM CDT): Stable, continue Duloxetine Assessment & Plan (01/13/2023 10:33 AM RETAIL WIRELESS SALES CONSULTANT): Stable, continue Duloxetine Assessment & Plan (09/10/2022 3:17 PM CDT): Improved. Continue Duloxetine Assessment & Plan (05/03/2022 2:59 PM RETAIL WIRELESS SALES CONSULTANT): Stable, continue Duloxetine Assessment & Plan (01/03/2022 1:30 PM CDT): Intermittent. Continue Duloxetine. Assessment & Plan (05/03/2021 11:09 AM RETAIL WIRELESS SALES CONSULTANT): Chronic and unchanged. Continue Duloxetine Assessment & [...] Duloxetine Assessment & Plan (02/16/2018 1:25 PM RETAIL WIRELESS SALES CONSULTANT): Doing well with the clonazepam and duloxetine Assessment & Plan (04/15/2017 12:42 PM RETAIL WIRELESS SALES CONSULTANT): Still teary in the room over the [...] Future Assessment & Plan (03/30/2024 12:50 PM RETAIL WIRELESS SALES CONSULTANT): Stable, continue levothyroxine Assessment & Plan (12/29/2023 1:24 PM CDT): Stable, continue levothyroxine Assessment & Plan (09/16/2023 10:46 AM CDT): Stable? Will recheck today. Assessment & Plan (01/13/2023 10:31 AM RETAIL WIRELESS SALES CONSULTANT): Stable, continue levothyroxine. Assessment & Plan (09/10/2022 3:15 PM CDT): Stable? Will recheck today. Assessment & Plan (05/03/2022 2:57 PM RETAIL WIRELESS SALES CONSULTANT): Stable? Will recheck today. Assessment & Plan (01/03/2022 1:24 PM CDT): Stable, continue levothyroxine Assessment & Plan (05/03/2021 11:08 AM RETAIL WIRELESS SALES CONSULTANT): Stable? Continue levothyroxine. Assessment & Plan (11/08/2020 5:23 PM CDT): Stable, continue levothyroxine Assessment & Plan (05/22/2020 7:58 PM CDT): Stable? Will recheck today. Chronic pain 02/03/2012 Overview (06/08/2016): Chronic pain Assessment & Plan (10/25/2024 2:55 PM CDT): Chronic low back pain and chronic knee pain. Continue tramadol. If knee pain worsens again she may asked to see Orthopedics here in [place] Assessment & Plan (09/10/2022 3:16 PM CDT): Chronic and unchanged. Continue Tramadol as needed. Assessment & Plan (06/12/2017 11:27 AM CDT): On 4 per day from 6 per day after shoulder is better and for athritis In low back pain and continue cutting back Hypercholesterolemia 11/29/2010 Assessment & Plan (07/26/2024 9:28 PM CDT): Lipid abnormalities are stable, reviewed previous lipid levels in [facility]. Continue statin therapy. Lipitor (atorvastatin) Order for lipid panel was given today to be obtained. Pt voiced understanding of lab drawn and continuation of current medication regimen. Assessment & Plan (03/30/2024 12:49 PM RETAIL WIRELESS SALES CONSULTANT): Continue low fat eating- limit fried foods, [...] prescribed. Assessment & Plan (01/13/2023 10:30 AM RETAIL WIRELESS SALES CONSULTANT): Continue low fat eating- limit fried foods, [...] prescribed. Assessment & Plan (05/03/2022 2:58 PM RETAIL WIRELESS SALES CONSULTANT): Continue low fat eating- limit fried foods, [...] day. Assessment & Plan (05/03/2021 11:09 AM RETAIL WIRELESS SALES CONSULTANT): Continue low fat eating- limit fried foods, [...] like she is doing well at assisted-living [facility] here in [place]. Continues on the duloxetine and lorazepam daily. Assessment & Plan (03/30/2024 1:37 PM RETAIL WIRELESS SALES CONSULTANT): Not controlled, continue Lorazepam as needed Assessment & Plan (01/13/2023 10:32 AM RETAIL WIRELESS SALES CONSULTANT): Stable, continue Duloxetine and Lorazepam as needed. Assessment & Plan (09/10/2022 3:18 PM CDT): Improved. Continue Duloxetine and uses Lorazepam as needed. Try not take this medication daily or intermission coordinator is at all possible as it can lead to dependence/addiction/tolerance, memory issues and may cause depression senior care. Keep this medication out of the reach of other people. Do not drive or drink alcohol with this medication. Assessment & Plan (05/03/2022 3:00 PM RETAIL WIRELESS SALES CONSULTANT): Chronic and unchanged. Continue Lorazepam as needed. Assessment & Plan (01/03/2022 1:31 PM CDT): Stable, continue Lorazepam as needed Assessment & Plan (11/08/2020 5:25 PM CDT): Stable, continue Clonazepam Assessment & Plan (05/22/2020 8:01 PM CDT): Stable, continue Clonazepam as needed. Do not take this medication daily or intermission coordinator is at all possible as it can lead to dependence/addiction/tolerance, memory issues and may cause depression senior care. Keep this medication out of the [...] disease) Assessment & Plan (03/30/2024 12:53 PM RETAIL WIRELESS SALES CONSULTANT): Try to eat smaller more frequent meals. [...] weight. Assessment & Plan (01/13/2023 10:32 AM RETAIL WIRELESS SALES CONSULTANT): Try to eat smaller more frequent meals. [...] weight. Assessment & Plan (05/03/2022 2:59 PM RETAIL WIRELESS SALES CONSULTANT): Try to eat smaller more frequent meals. [...] weight. Assessment & Plan (05/03/2021 11:09 AM RETAIL WIRELESS SALES CONSULTANT): Try to eat smaller more frequent meals. [...] (06/12/2018): Added automatically from request for surgery [id number] Encounter for weight management 06/05/2018 07/22/2024 Dyslipidemia [...] needed Assessment & Plan (04/10/2018 4:07 PM RETAIL WIRELESS SALES CONSULTANT): The patient has done very well overall [...] x-rays. Assessment & Plan (02/18/2018 11:58 AM RETAIL WIRELESS SALES CONSULTANT): Treatment options were discussed. The patient would [...] on calories. Most people should eat between 0744-7975 calories to lose weight. Decrease your carbohydrate [...] on calories. Most people should eat between 8545-5253 calories to lose weight. Decrease your carbohydrate [...] 07/22/2024 Assessment & Plan (04/15/2017 12:41 PM RETAIL WIRELESS SALES CONSULTANT): Will do ambulatory PT as she is [...] disease Assessment & Plan (03/30/2024 12:49 PM RETAIL WIRELESS SALES CONSULTANT): The blood pressure is adequately controlled. Ideally, [...] way. Assessment & Plan (01/13/2023 10:30 AM RETAIL WIRELESS SALES CONSULTANT): The blood pressure is adequately controlled. Ideally, [...] way. Assessment & Plan (05/03/2022 2:57 PM RETAIL WIRELESS SALES CONSULTANT): The blood pressure is adequately controlled. Ideally, [...] way. Assessment & Plan (05/03/2021 11:08 AM RETAIL WIRELESS SALES CONSULTANT): The blood pressure is adequately controlled. Ideally, [...] today. Assessment & Plan (03/30/2024 12:53 PM RETAIL WIRELESS SALES CONSULTANT): Continue to increase water intake. Limit use [...] weight. Assessment & Plan (01/13/2023 10:32 AM RETAIL WIRELESS SALES CONSULTANT): Continue to increase water intake. Limit use of NSAIDs including Ibuprofen, Aleve, Motrin, etc. Continue aerobic exercise and maintain a healthy weight. Assessment & Plan (09/10/2022 3:20 PM CDT): Continue to increase water intake. Limit use of NSAIDs including Ibuprofen, Aleve, Motrin, etc. Continue aerobic exercise and maintain a healthy weight. Assessment & Plan (05/03/2022 3:00 PM RETAIL WIRELESS SALES CONSULTANT): Continue to increase water intake. Limit use of NSAIDs including Ibuprofen, Aleve, Motrin, etc. Continue aerobic exercise and maintain a healthy weight. Assessment & Plan (01/03/2022 1:31 PM CDT): Continue to increase water intake. Limit use of NSAIDs including Ibuprofen, Aleve, Motrin, etc. Continue aerobic exercise and maintain a healthy weight. Assessment & Plan (05/03/2021 11:10 AM RETAIL WIRELESS SALES CONSULTANT): Continue to increase water intake. Limit use [...] Description 10/25/2024 2:00 PM CDT Office Visit [facility] Primary Care at [address] [phone] Tracy Hernández NP Post-menopausal (Primary Dx); Drug-induced constipation; Other chronic pain; Chronic pain of right knee; Primary insomnia; Acquired hypothyroidism; Generalized anxiety disorder with panic attacks; Major depression single episode, in partial remission 10/18/[address] [facility] Primary Care at [address] [phone] Chente Palmer MD 09/20/[address] [facility] Primary Care at [address] [phone] Tracy Hernández NP 09/20/2024 Orders Only [facility] Ophthalmology [address]th [address], [address] [facility] for [facility] [place] [address] Jackie Mckeon, HAFSA Encounter for observation for other suspected diseases and conditions ruled out (Primary Dx) 09/17/2024 12:32 PM CDT - 09/17/2024 11:59 PM CDT Hospital Encounter [address] [address] Frequent UTI Discharge Disposition: Discharge to home or self care 09/17/2024 12:[address] [facility] Outpatient Lab at [address] [phone] 09/17/2024 Results Follow-Up [facility] Primary Care at [address] [phone] Tracy Hernández NP Basic metabolic panel, TSH, eGFR, Urine culture Urine, clean voided 09/16/2024 3:06 PM CDT - 09/16/2024 11:59 PM CDT Hospital Encounter [address] [address] Stage 3a chronic kidney disease (HCC); Acquired hypothyroidism Discharge Disposition: Discharge to home or self care 09/16/2024 3:[address] [facility] Medical [facility] Outpatient Lab at [address] [phone] 09/16/2024 2:00 PM CDT Office Visit [facility] Primary Care at [address] [phone] Tracy Hernández NP Stage 3a chronic kidney disease (HCC) (Primary Dx); Frequent UTI; Acquired hypothyroidism from Last 3 Months Immunizations Immunization Administration [...] age 57 Alzheimer's disease Son 3 ana camachocayetano webber jr. Relation Name Status Comments Father Baljit Oral Rivera Maternal Grandfather Raúl Saba Alive Maternal Grandmother Daisha Saba Alive Mother Sowmya Rivera Other Paternal Grandfather Costa Rivera Alive Paternal Grandmother Stephany Rivera Alive Son 1 Alive Son 2 Alive Son 3 ana camachocayetano webber jr. Alive Social History Tobacco Use [...] on file Legal Sex Female 11:38 PM RETAIL WIRELESS SALES CONSULTANT Gender Identity Female 08/02/2019 9:59 AM [...] Scan 12/28/2021 12/29/2019, 04/01/2014, 04/01/2014 Covid-19 Vaccine (2024-2 6 season) 2024 02/16/2024, 02/16/2024, 01/20/2023, Additional history [...] 12/22/2014, 05/01 Medical Devices Implanted Type Area Station Tender Device Identifier Shelf Expiration Date Model / Serial / Lot [employer] 6191-1-010 Simplex P Radiopaque Full Dose Cement Bone Sterile - [id number] Implanted:Qty: 1 on 07/15/2018 by Irving Mccauley MD at [facility] Bone Cement Left: Knee [employer] 07/31/2020 6191-1-010 / / [id number] [employer] 6191-1-010 Simplex P Radiopaque Full Dose Cement Bone Sterile - [id number] Implanted:Qty: 1 on 07/15/2018 by Irving Mccauley MD at [facility] Bone Cement Left: Knee [employer] 07/31/2020 6191-1-010 / / [id number] Baseplate Shoulder 15mm Length - [id number] Implanted:Qty: 1 on 12/10/2017 by Tayo Murray DO at [facility] Right: Shoulder [employer] Rhea 09/30/2022 GBP-0960-0 30-15 / / [id number] Screw 5.5mm 20mm Length Shoulder - [id number] Implanted:Qty: 1 on 12/10/2017 by Tayo Murray DO at [facility] Right: Shoulder [employer] Rhea 07/29/2022 SCW-0960-0 55-20 / / [id number] Screw And Cap 4.5mm 15mm Shoulder - [id number] Implanted:Qty: 2 on 12/10/2017 by Tayo Murray DO at [facility] Right: Shoulder [employer] Rhea 08/28/2020 SSC-0960-0 45-15 / / [id number] Screw And Cap 4.5mm 20mm Shoulder - [id number] Implanted:Qty: 1 on 12/10/2017 by Tayo Murray DO at [facility] Right: Shoulder [employer] Rhea 06/01/2022 SSC-0960-0 45-20 / / [id number] Screw And Cap 4.5mm 25mm Shoulder - [id number] Implanted:Qty: 1 on 12/10/2017 by Tayo Murray DO at [facility] Right: Shoulder [employer] Rhea 05/30/2022 SSC-0960-0 45-25 / / [id number] Glenosphere Shoulder 5mm Eccentric - [id number] Implanted:Qty: 1 on 12/10/2017 by Tayo Murray DO at [facility] Right: Shoulder [employer] Rhea 11/30/2021 GLS-0960-0 5E / / [id number] [employer] Rhea [id number] Titan 16.5mm 12.1mm 90.4mm Press Fit 12 Spline Modular - [id number] Implanted:Qty: 1 on 12/10/2017 by Tayo Murray DO at [facility] Right: Shoulder [employer] Rhea 09/30/2021 STEM-0920- 025-11 / / [id number] Body Shoulder Small Reverse [id number] - [id number] Implanted:Qty: 1 on 12/10/2017 by Tayo Murray DO at [facility] Right: Shoulder [employer] Rhea 04/02/2022 BBS-0960-2 1SML / / [id number] Liner +0mm 9.6mm Standard 20mm 2.7mm 38.7mm Shoulder Humeral - [id number] - [id number] Implanted:Qty: 1 on 12/10/2017 by Tayo Murray DO at [facility] Right: Shoulder [employer] Rhea 04/30/2021 LNR-0960-0 0S / LNR-0960-0 0S / [id number] [employer]/O rtho [id number] Shannan Ii [id number] Knee Oval Component Patellar Uhmwpe - [id number] Implanted:Qty: 1 on 07/15/2018 by Irving Mccauley MD at [facility] Left: Knee [employer]/ Ortho [id number] 04/25/2028 [id number] / / [id number] [employer]/O rtho [id number] Journey Knee Left 3 Baseplate Tibial - [id number] Implanted:Qty: 1 on 07/15/2018 by Irving Mccauley MD at [facility] Left: Knee [employer]/ Ortho [id number] 09/23/2027 [id number] / / [id number] [employer]/O rtho [id number] Journey Ii Cruciate Retain Knee Left 4 Component Femoral Cocr - [id number] Implanted:Qty: 1 on 07/15/2018 by Irving Mccauley MD at [facility] Left: Knee [employer]/ Ortho [id number] 12/06/2027 [id number] / / [id number] [employer]/O rtho [id number] Journey Ii Left 3-4 Deep [facility] Insert Articular Xlpe - [id number] Implanted:Qty: 1 on 07/15/2018 by Irving Mccauley MD at [facility] Left: Knee [employer]/ Ortho [id number] 03/09/2026 [id number] / / [id number] Explanted Type Area Station Tender Device Identifier Shelf Expiration Date Model / Serial / Lot Integra [employer] [id number] 2mm 150mm Elbow Shoulder Guide Pin Orthopedic - [id number] Explanted:Qty: 2 on 12/10/2017 at [facility] Right: Shoulder Integra [employer] [id number] / / Procedures Procedure Name Priority Date/Time Associated Diagnosis Comments CT ABDOMEN PELVIS WO CONTRAST Schedule Routine, Read Routine (OP Routine) 11/10/2024 9:12 AM CDT US VEIN DUPLEX LOWER EXTREMITY RIGHT LIMITED [...] Recently Relevant to Health Maintenance Results * CT Abdomen Pelvis WO Contrast (11/10/2024 9:12 AM CDT) Anatomical Region Laterality Modality Body N/A Computed Tomogra phy Historical Provider MD PIPER CT PROCEDURES Final R esult * US Vein Duplex Lower Extremity Right Limited (10/18/2024 10:48 AM CDT) Anatomical Region Laterality Modality Vascular Right Ultrasound Historical Provider MD PIPER US PROCEDURES Final [...] [email or web address]. (.) Comment:Testing performed by : [facility], [address] [place]., [address] Organism CITROBACTER FREUNDII COMPLEX CERNER Organism PLUS GROWTH OF CLINICALLY INSIGNIFICANT LASHONDA. CERNER Urine, clean voided 09/17/2024 12:32 PM CDT 09/18/2024 12:16 AM CDT Narrative CERNER CH - 09/19/2024 3:50 PM CDT Testing performed by [facility] Microbiology Laboratory ([phone]) Organism Antibiotic Method Susceptibility Citrobacter freundii complex [...] Resistant Citrobacter freundii complex Piperacillin/Tazobactam INTERPRETATION Resistant us Tracy Hernández NP LAB MICROBIOLOGY - GENERAL OR DERABLES Final Result AAMIR ALAS [address] [address] [facility] [place] [address] * eGFR (09/16/2024 3:06 PM CDT) [...] BLOOD ORDERABLES Final Re sult AAMIR ALAS [address] [address] [facility] [email or web address] [address] * TSH (09/16/2024 3:06 PM CDT) Thyroid Stimulating Hormone 3.35 0.30 - 4.20 mcIUnit/mL Blood 09/16/2024 3:06 PM CDT 09/16/2024 10:39 PM CDT Tracy Hernández NP LAB BLOOD ORDERABLES Final Re sult Performing Organization Address [place]/[facility]/ZIP Co de Phone Number AAMIR [address] [address] Department [place] [address] * Basic metabolic panel (09/16/2024 3:06 PM CDT) Sodium 139 135 - 145 mmol/L Potassium, pl 4.1 3.3 - 4.9 mmol/L [facility] Chloride 100 97 - 110 mmol/L [facility] CO2 26 22 - 32 mmol/L [facility] Anion gap 13 2 - 15 mmol/L [facility] BUN 24 6 - 25 mg/dL [facility] Creatinine 0.74 0.60 - 1.10 mg/dL [facility] Glucose 136 70 - 199 mg/dL [facility] [...] ORDERABLES Final Re sult Performing Organization Address City/[facility]/ZIP Co de Phone Number AAMIR [id number] [address] Department [place] [address] * Dexa Axial Skeleton Bone Density 1 [...] Dual x-ray absorptiometry (DEXA) was performed using [employer] system. GENERAL GUIDELINES: According to WHO guidelines, [...] Dual x-ray absorptiometry (DEXA) was performed using [employer] system. GENERAL GUIDELINES: According to WHO guidelines, [...] Maintenance Insurance MEDICARE COMMERCIAL GENERIC IDPA MEDICARE IDPA COMMERCIAL GENERIC MEDICARE COMMERCIAL GENERIC Advance Directives For more information, please contact: [phone] Documents on File Type Date Recorded Patient Application Systems Administrator Expl anation ADVANCE DIRECTIVE 08/20/2019 2:35 PM Power of Teacher Asst-Medical ADVANCE DIRECTIVE 07/15/2018 11:14 AM ADVANCE DIRECTIVE [...] 3:25 PM 12/13/2017 4:26 PM Care Teams Lineman A Class Relationship Specialty Start Date End Date Tracy Hernández NP [address] [facility] [address] [place], [place] [id number] PCP - General Family Medicine 07/22/24
--- OUTSIDE RECORDS SUMMARY | 2024-12-03 09:55 | XMS_ITS | Encounter Summary ---
Author Organization [facility] Healthcare Address [address] [place] [address] Care Team Providers Care Hotel Or Motel Manager Name Role Phone Matt Painting MD Primary Care Provider [phone] Yesi Cook DPT Unavailable Unavailable Vernon Hernandez RN Unavailable Renetta Pearl MA Unavailable [phone] Shanna Oakes SCREENER AND BLENDER OPERATOR Primary Care Provider [phone] Tracy Hernández SCREENER AND BLENDER OPERATOR Primary Care Provider [phone] Encounter Details Date Type Department Care Team (Late st Contact Info) Description 06/24/2018 Documentation [facility] Case Management [address] [place] [id number] Opal Marsh MSW Social History Tobacco Use Types Packs/Day Years Used Date Smoking Tobacco: Never Smokeless Tobacco: Never Alcohol Use Standard Drinks/Week Comments No 0 (1 standard drink = 0.6 oz pur e alcohol) Comments No Sex and Gender Information Value Date Recorded Sex Assigned at Not on file Legal Sex Female 11:38 PM TAPE EDGE MACHINE 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 Secondary choice is the [facility] in [place]. Pt informed that the referral will be sent upon admission for placement if PT recs SNF. SW will followafter surgery. documented in this encounter Plan of Treatment Not on file documented as of this encounter Visit Diagnoses Not on filedocumented in this encounter Care Teams Hotel Or Motel Manager Relationship Specialty Start Date End Date Matt Painting MD [address] [facility] [address], [place] [address] PCP - General 05/31/16 12/08/19 Shanna Oakes NP [address] [place] [address] [address] [place] [address] PCP - General Internal Medicine 12/09/19 07/21/24 Tracy Hernández NP [address] [facility] [address] [place] [address] PCP - General Family Medicine 07/22/24 Yesi Cook DPT Physical Therapist Physical Therapy 07/30/17 03/06/20 Vernon Hernandez RN [address] [place], [place] [address]Rafael [address] [address] [facility] Outpatient Spot Facer 07/20/18 10/15/18 Renetta Pearl, SONIA [address] [place] [address] ACO Care Drywall Metal Stud Worker 07/21/18 07/21/18 documented as of this encounter
--- OUTSIDE RECORDS SUMMARY | 2024-12-03 09:55 | XMS_ITS | Encounter Summary ---
Author Organization [facility] Healthcare Address [address] [place] [address] Care Team Providers Care Jewel Bearing Polisher Name Role Phone Matt Painting MD Primary Care Provider [phone] Tyesha Abarca DPT Unavailable Unavailable Yesi Cook DPT Unavailable Unavailable Renetta Pearl MA Unavailable [phone] Vernon Hernandez RN Unavailable [phone] Vernon Hernandez RN Unavailable [phone] Renetta Pearl MA Unavailable [phone] Shanna Oakes SUPERVISOR GAS METER REPAIR Primary Care Provider [phone] Tracy Hernández SUPERVISOR GAS METER REPAIR Primary Care Provider [phone] Encounter Details Date Type Department Care Team (Late st Contact Info) Description 11/28/[address] 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 [place] [address] PCP - General Internal Medicine 12/09/19 07/21/24 Tracy Hernández NP [address] [facility] [address] [place] [address] PCP - General Family Medicine 07/22/24 Tyesha Abarca, KIMBERLY Physical Therapist Physical Therapy 04/30/17 02/08/18 Joyce, Yesi E., DPT Physical Therapist Physical Therapy 07/30/17 03/06/20 Renetta Pearl MA [address] [facility] [address] [place] [address] ACO Care Crusher Machine Operator 12/15/17 12/31/17 Vernon Hernandez RN [address] [place] [address] [address] [place], [place] [id number] Entry Level Management 01/01/18 02/11/18 Vernon Hernandez RN [address] [place] [address] [address] [place], [place] [id number] C[facility] Outpatient Zoogler 07/20/18 10/15/18 Renetta Pearl MA [address] [facility] [address] [place] [address] ACO Care Crusher Machine Operator 07/21/18 07/21/18 documented as of this encounter
--- OUTSIDE RECORDS SUMMARY | 2024-12-03 09:55 | XMS_ITS | Encounter Summary ---
Author Organization [facility] Healthcare Address [address] [place] [address] Care Team Providers Care Surgery Center Administrator Name Role Phone Shanna Oakes NP Primary Care Provider [phone] Tracy Hernádnez JACQUARD PLATE MAKER Primary Care Provider [phone] Encounter Details Date Type Department Care Team (Late st Contact Info) Description 12/20/2020 Telephone [facility] - Interventional Radiology [address] [place] [address] Juanis Mejia RN Social History [...] on file Legal Sex Female 11:38 PM STORE CLERK Gender Identity Female 08/02/2019 9:59 AM CDT Sexual Orientation Straight 06/03/2018 6: 51 PM CDT documented as of this encounter Plan of Treatment Not on file documented as of this encounter Visit Diagnoses Not on filedocumented in this encounter Care Teams Surgery Center Administrator Relationship Specialty Start Date End Date Shanna Oakes NP PCP - General Internal Medicine 12/09/19 07/21/24 Tracy Hernández NP [address] [address] PCP - General Family Medicine 07/22/24 documented as of this encounter
--- OUTSIDE RECORDS SUMMARY | 2024-12-03 09:55 | XMS_ITS | Patient Health Record ---
Author Organization [facility] Address [address] [facility] [address] [place] [address] Care Team Providers Care Machine Heel Seat Laster Name Role Phone Irving Thomas Unavailable [phone] Reason For Referral No Information Medications Medication [...] W/U Status Risk Notes Problem Joint pain (65214497) Pain in unspecified joint (M25.50) Active confirmed Plan Of Treatment No Information Insurance Providers Payer Name Payer Address Payer Phone Subscriber Number Group Number Insured Name Patient Relationship to Insured Coverage Start Date Coverage End Date DO NOT USE AR [id number] Latasha Menard Self - patient is the insured DO NOT USE [id number] Latasha Menard Self - patient is the insured Medical (General) History Surgical History Surgery Date(Month/Year) Hysterectomy; 2020-12-04 Shoulder surgery; 2020-12-04 cataract; 2020-12-04 Hernia Repair; 2020-12-04 Knee surgery; 2020-12-04 ACL tear; 2020-12-04 Sinus Surgery; 2020-12-04
--- OUTSIDE RECORDS SUMMARY | 2024-12-03 09:55 | XMS_ITS | Encounter Summary ---
Author Organization [facility] Healthcare Address [address] [place] [address] Care Team Providers Care Awnings Mechanic Name Role Phone Yesi Cook DPT Unavailable Unavailable Shnana Oakes NP Primary Care Provider [phone] Tracy Hernándze MOLD MOVER Primary Care Provider [phone] Encounter Details Date Type Department Care Team (Late st Contact Info) Description 12/28/2019 Telephone [facility] [address] [place] [id number] Melanie Del Rio, Social History Tobacco Use [...] on file Legal Sex Female 11:38 PM HIM DIRECTOR Gender Identity Female 08/02/2019 9:59 AM CDT Sexual Orientation Straight 06/03/2018 6: 51 PM CDT documented as of this encounter Plan of Treatment Not on file documented as of this encounter Visit Diagnoses Not on filedocumented in this encounter Care Teams Awnings Mechanic Relationship Specialty Start Date End Date Shanna Oakes NP PCP - General Internal Medicine 12/09/19 07/21/24 Tracy Hernández NP [address] [address] PCP - General Family Medicine 07/22/24 Yesi Cook, VENITAT Physical Therapist Physical Therapy 07/30/17 03/06/20 documented as of this encounter
[2024-12-03 10:00] VITALS: BP 112/90; PULSE 82; RESP 15; O2SAT 96
--- NOTE | 2024-12-03 10:17 | ED.GENADULT ---
HPI - General Adult General Chief complaint: Urogenital-Female Stated complaint: possible uti Time Seen by Provider: 12/03/24 09:52 History of Present Illness HPI narrative: 81-year-old female presents to the emergency department for evaluation for urinary symptoms that have been ongoing for approximately the last week. Patient states she has had some burning with urination but last night the symptoms worsened and patient was having increased urinary frequency. Patient also states she has been running a ?low-grade fever?. Patient states she typically runs about 97 but has been running 98.8. Patient denies any nausea vomiting but does report she has been having some issues with constipation. Related Data Home Medications ?Medication ?Instructions ?Recorded ?Confirmed ?Last Taken ?Type amlodipine 5 mg tablet 5 mg PO DAILY 01/06/19 12/03/24 12/02/24 History atorvastatin 20 mg tablet 20 mg PO DAILY 01/06/19 12/03/24 12/02/24 History duloxetine 60 mg capsule,delayed 120 mg PO DAILY 01/06/19 12/03/24 12/02/24 History release hydrochlorothiazide 12.5 mg capsule 12.5 mg PO DAILY 01/06/19 12/03/24 12/02/24 History potassium chloride 10 mEq 20 meq PO DAILY 01/06/19 12/03/24 12/02/24 History tablet,extended release levothyroxine 50 mcg tablet 100 mcg PO DAILY 07/28/24 12/03/24 12/03/24 History (Synthroid) zolpidem 10 mg tablet 6.25 mg PO QHS 09/09/24 12/03/24 12/02/24 History aspirin 81 mg tablet,delayed 81 mg PO DAILY 12/03/24 12/03/24 12/02/24 History release (Adult Aspirin Regimen) gabapentin 300 mg capsule 300 mg PO DAILY 12/03/24 12/03/24 12/02/24 History lorazepam 0.5 mg tablet 0.5 mg PO BID PRN anxiety 12/03/24 12/03/24 12/02/24 History omeprazole 20 mg capsule,delayed 20 mg PO DAILY 12/03/24 12/03/24 12/02/24 History release tramadol 50 mg tablet 50 mg PO BID PRN pain 12/03/24 12/03/24 12/02/24 History Allergies Allergy/AdvReac Type Severity Reaction Status Date / Time ciprofloxacin Allergy Intermediate Other Verified 11/16/24 10:45 valsartan Allergy Unknown Other Verified 11/16/24 10:45 nitrofurantoin AdvReac Mild Nausea,Vomiting, Verified 11/16/24 10:45 Diarrhea sulfamethoxazole AdvReac Unknown UPSET Verified 11/16/24 10:45 STOMACH trimethoprim AdvReac Unknown UPSET Verified 11/16/24 10:45 STOMACH Review of Systems Review of Systems: All systems reviewed & are unremarkable except as noted in HPI and below PMFSH Past Medical History Medical History History of recurrent UTIs Elevated fecal calprotectin Abnormal CT scan Abdominal pain Bloating Constipation Degenerative disc disease Hypothyroid Hyperlipidemia Migraine Hypertension Spinal stenosis Surgical History Surgical History History of hysterectomy Family History Family History (Updated 12/03/24 @ 14:09 by Christi Pride RN) Father Acute myocardial infarction Mother Acute myocardial infarction Social History Social History Smoking status: Never smoker Alcohol intake: current Drinks per week: 14 Substance use: never Substance use type: does not use Lack of Transportation: No Lack of Food: Never True Current Housing: I Have Housing Concerned About Future Housing: No Difficulty Paying Gas/Electric Bills: No Difficulty Paying for Meds: No Currently Unemployed: No Education: Associate Degree Difficulty w/ Childcare or Family Care: No Gender identity (if verbalized by the patient): Female Spiritual care concerns: No Exam Narrative: APPEARANCE: Ill-appearing HEAD: normocephalic, atraumatic. EYES: PERRLA/EOMI, conjunctivae clear. NOSE: Normal no drainage EARS:TMS clear with good light reflex. THROAT: Pharynx clear, no exudate. NECK: Supple. No adenopathy, no masses. RESPIRATORY: Airway patent, respirations nonlabored. Clear to auscultation bilaterally, no rales, rhonchi, wheezing. CARDIOVASCULAR: Regular rate and rhythm without murmurs rubs or gallops. ABDOMINAL: Soft, nontender, nondistended, normal bowel sounds MUSCULOSKELETAL: Moves all extremities. Strength/ROM intact, No edema, No calf tenderness. NEURO: Alert. Cranial nerves II through XII intact. Good gait. Good coordination SKIN: Warm, dry. Normal Color Course Vital Signs Vital signs: Vital Signs Pulse Rate 82 12/03/24 10:00 Respiratory Rate 15 12/03/24 10:00 Blood Pressure 112/90 12/03/24 10:00 Pulse Oximetry 96 12/03/24 10:00 Oxygen Delivery Room Air 12/03/24 10:00 Temperature 97.3 F L 12/03/24 14:00 Pulse Rate 81 12/03/24 14:00 Respiratory Rate 16 12/03/24 14:00 Blood Pressure 132/73 12/03/24 14:00 Pulse Oximetry 100 12/03/24 14:00 Oxygen Delivery Room Air 12/03/24 14:16 Medical Decision Making MDM Narrative Medical decision making narrative: 89-year-old female presents emergency department for evaluation for increased generalized weakness and urinary symptoms. Patient is currently afebrile no leukocytosis hemoglobin of 13.4. INR of 1.0. No acute abnormalities on her CMP UA was significant for urinary tract infection. Patient was initially convincing that she preferred to be discharged to home in so she was started on oral antibiotics, cephalexin. Urine culture was ordered. On re-evaluation patient states she does feel too weak to be discharged home at prefers to be admitted. Case was discussed with hospitalist patient was accepted for admission. Differential Diagnosis Differential Diagnosis: COVID, RSV influenza, UTI, sepsis, ureteral calculi Vital Signs Vital Signs: Vital Signs Pulse Rate 82 12/03/24 10:00 Respiratory Rate 15 12/03/24 10:00 Blood Pressure 112/90 12/03/24 10:00 Pulse Oximetry 96 12/03/24 10:00 Oxygen Delivery Room Air 12/03/24 10:00 Temperature 97.3 F L 12/03/24 14:00 Pulse Rate 81 12/03/24 14:00 Respiratory Rate 16 12/03/24 14:00 Blood Pressure 132/73 12/03/24 14:00 Pulse Oximetry 100 12/03/24 14:00 Oxygen Delivery Room Air 12/03/24 14:16 Lab Data Lab results reviewed: Yes I reviewed the patient's lab results. 12/03/24 12:11 12/03/24 12:11 Labs: Lab Results 10/03/25 10/03/25 Range/Units 10:24 12:11 WBC 7.6 (4.5-10.0) K/mm3 RBC 4.10 L (4.2-5.4) M/mm3 Hgb 13.4 (12.0-15.0) g/dL Hct 40.1 (37.0-47.0) % MCV 97.8 (80-100) fl MCH 32.7 (26-34) pg MCHC 33.4 (32-36) g/dl RDW 13.1 (11.5-14.5) % Plt Count 188 (150-375) k/mm3 MPV 10.0 (7.4-10.4) fl Immature Gran % (Auto) 0.3 (0-0.5) % Neut % (Auto) 59.2 (45.5-73.1) % Lymph % (Auto) 27.3 (18.3-44.2) % Warren % (Auto) 11.1 H (2.6-8.5) % Eos % (Auto) 1.6 (0-4.4) % Baso % (Auto) 0.5 (0.2-1.2) % Lymph # (Auto) 2.07 (0.9-3.2) K/mm3 Warren # (Auto) 0.8 H (0.1-0.6) K/mm3 Eos # (Auto) 0.1 (0-0.3) K/mm3 Baso # (Auto) 0.0 (0.0-0.1) K/mm3 Abs Immat Gran (auto) 0.02 (0.00-0.031) K/mm3 Absolute Neuts (auto) 4.5 (1.3-6.7) K/mm3 Absolute Nucleated RBC 0.000 (0.0-0.012) K/mm3 Nucleated RBC % 0.0 (0.0-0.2) % PT 13.4 (11.1-14.7) Seconds INR 1.0 APTT 28.3 (22.3-36.8) Seconds Sodium 135 L (137-145) mmol/L Potassium 3.6 (3.4-5.0) mmol/L Chloride 95 L (98-107) mmol/L Carbon Dioxide 31 H (22-30) mmol/L Anion Gap 9 (4-12) mmol/L BUN 16 (7-17) mg/dL Creatinine 0.59 L (0.7-1.0) mg/dL Estim Creat Clear Calc 55 ml/min Estimated GFR > 60 (59 - ) Glucose 95 (65-110) mg/dL Calcium 9.3 (8.4-10.2) mg/dL Total Bilirubin 0.6 (0.2-1.3) mg/dL AST 29 (14-36) U/L ALT 16 (6-35) U/L Alkaline Phosphatase 92 (38-126) U/L Total Protein 7.6 (6.3-8.2) g/dL Albumin 4.2 (3.5-5.1) g/dL TSH (Reflex) 0.832 (0.465-4.68) uIU/mL Urine Color Yellow (Yellow) Urine Appearance Cloudy H (Clear) Urine pH 7.0 (5.0-9.0) Ur Specific Linch 1.012 (1.001-1.035) Urine Protein 2+ H (Negative) mg/dL Urine Glucose (UA) Negative (Negative) mg/dL Urine Ketones Negative (Negative) mg/dL Ur Blood (Man) Trace (Negative) Urine Nitrate Negative (Negative) Urine Bilirubin Negative (Negative) Urine Urobilinogen 0.2 (<2.0) mg/dL Add Ur Microanalysis Reviewed Leukocyte Esterase Rfl 3+ H (Negative) MICHELLE/UL Urine RBC 0-2 (0-2) /hpf Urine WBC >100 H (0-3) /hpf Ur Squamous Epith Cells None seen (Few) /hpf Urine Bacteria None seen /hpf Urine Casts 0-2 Discharge Plan Discharge Clinical Impression: Acute UTI Patient Disposition: Home Condition: Stable
--- OUTSIDE RECORDS SUMMARY | 2024-12-03 11:04 | XMS_ITS | Clinical Summary ---
Author Organization [facility] Address [address] [place] [address] Care Team Providers Care Motorcycle Sales Associate Name Role Phone Tracy Hernández NP Primary Care Provider [phone] Allergies Active Allergy Reactions Criticality Noted Date [...] zolpidem. Assessment & Plan (03/30/2024 12:53 PM TENTER FRAME OPERATOR): Stable, continue Zolpidem Assessment & Plan (12/29/2023 1:26 PM CDT): Worse. Will switch to an ER Zolpidem. Dermatochalasis of both upper eyelids 10/15/2022 Assessment & Plan (10/16/2023 4:47 PM CDT): Pt not bothered, monitor Assessment & Plan (10/15/2022 12:55 PM CDT): Not v/s, monitor Atherosclerosis of aorta 05/09/2022 Overview (05/09/2022): 05/09/21- xray Assessment & Plan (03/30/2024 12:52 PM TENTER FRAME OPERATOR): Stable, continue aspirin and Atorvastatin Assessment & Plan (09/16/2023 10:46 AM CDT): Stable, continue Atorvastatin and aspirin. Assessment & Plan (01/13/2023 10:31 AM TENTER FRAME OPERATOR): Stable, continue aspirin and Atorvastatin Encounter for Medicare annual wellness exam 05/02 Assessment & Plan (03/30/2024 12:49 PM TENTER FRAME OPERATOR): Please see below for a list of your medical conditions and recommendations. Assessment & Plan (01/13/2023 10:30 AM TENTER FRAME OPERATOR): Please see below for a list of your medical conditions and recommendations. Assessment & Plan (01/03/2022 1:23 PM CDT): Please see below for a list of your medical conditions and recommendations. Assessment & Plan (05/23/2020 10:33 AM CDT): Please see below for a list of your medical conditions and recommendations. Atherosclerosis of both carotid arteries 020 Assessment & Plan (03/30/2024 12:53 PM TENTER FRAME OPERATOR): Stable, continue aspirin and Atorvastatin Assessment & Plan (09/16/2023 10:47 AM CDT): Stable, continue Atorvastatin and aspirin Assessment & Plan (01/13/2023 10:32 AM TENTER FRAME OPERATOR): Stable, continue aspirin and Atorvastatin Assessment & Plan (01/03/2022 1:32 PM CDT): Stable, continue aspirin and Atorvastatin. Assessment & Plan (05/03/2021 11:10 AM TENTER FRAME OPERATOR): Stable, continue Atorvastatin and aspirin Assessment [...] UTI Assessment & Plan (04/15/2017 12:43 PM TENTER FRAME OPERATOR): Having increased urinary frequency but no pain, feels similar to UTIs in the past. UA today with just trace blood, negative for leuks and nitrites Advised to keep hydrated and will send UA for culture BMI 28.0-28.9,adult 04/15/2017 Assessment & Plan (10/08/2017 11:47 AM CDT): Try to cut back on calories. Most people should eat between 5291-6538 calories to lose weight. Decrease your carbohydrate [...] help. Assessment & Plan (04/15/2017 11:14 AM TENTER FRAME OPERATOR): BMI Follow-up includes: nutrition counseling and [...] management. Assessment & Plan (05/03/2021 11:10 AM TENTER FRAME OPERATOR): Stable, continue Gabapentin and Duloxetine Assessment & Plan (12/19/2019 7:35 PM CDT): Stable, continue duloxetine Assessment & Plan (06/14/2019 8:10 AM CDT): Requires chronic duloxetine and gabapentin therapy. Does see pain management at times. Assessment & Plan (04/15/2017 12:40 PM TENTER FRAME OPERATOR): Improved and using lidocaine patches which help. Suspect this is more from bulging disc than it is from UTI and patient agrees. Major depression single episode, in partial amanda ssion 08/28/2016 Assessment & Plan (10/25/2024 2:55 PM CDT): Stable, chronic. Continue duloxetine Assessment & Plan (03/30/2024 12:53 PM TENTER FRAME OPERATOR): Stable, continue Duloxetine Assessment & Plan (12/29/2023 1:26 PM CDT): Stable, continue Duloxetine Assessment & Plan (01/13/2023 10:33 AM TENTER FRAME OPERATOR): Stable, continue Duloxetine Assessment & Plan (09/10/2022 3:17 PM CDT): Improved. Continue Duloxetine Assessment & Plan (05/03/2022 2:59 PM TENTER FRAME OPERATOR): Stable, continue Duloxetine Assessment & Plan (01/03/2022 1:30 PM CDT): Intermittent. Continue Duloxetine. Assessment & Plan (05/03/2021 11:09 AM TENTER FRAME OPERATOR): Chronic and unchanged. Continue Duloxetine Assessment [...] Duloxetine Assessment & Plan (02/16/2018 1:25 PM TENTER FRAME OPERATOR): Doing well with the clonazepam and duloxetine Assessment & Plan (04/15/2017 12:42 PM TENTER FRAME OPERATOR): Still teary in the room over [...] Future Assessment & Plan (03/30/2024 12:50 PM TENTER FRAME OPERATOR): Stable, continue levothyroxine Assessment & Plan (12/29/2023 1:24 PM CDT): Stable, continue levothyroxine Assessment & Plan (09/16/2023 10:46 AM CDT): Stable? Will recheck today. Assessment & Plan (01/13/2023 10:31 AM TENTER FRAME OPERATOR): Stable, continue levothyroxine. Assessment & Plan (09/10/2022 3:15 PM CDT): Stable? Will recheck today. Assessment & Plan (05/03/2022 2:57 PM TENTER FRAME OPERATOR): Stable? Will recheck today. Assessment & Plan (01/03/2022 1:24 PM CDT): Stable, continue levothyroxine Assessment & Plan (05/03/2021 11:08 AM TENTER FRAME OPERATOR): Stable? Continue levothyroxine. Assessment & Plan (11/08/2020 5:23 PM CDT): Stable, continue levothyroxine Assessment & Plan (05/22/2020 7:58 PM CDT): Stable? Will recheck today. Chronic pain 02/03/2012 Overview (06/08/2016): Chronic pain Assessment & Plan (10/25/2024 2:55 PM CDT): Chronic low back pain and chronic knee pain. Continue tramadol. If knee pain worsens again she may asked to see Orthopedics here in [place] Assessment & Plan (09/10/2022 3:16 PM CDT): Chronic and unchanged. Continue Tramadol as needed. Assessment & Plan (06/12/2017 11:27 AM CDT): On 4 per day from 6 per day after shoulder is better and for athritis In low back pain and continue cutting back Hypercholesterolemia 11/29/2010 Assessment & Plan (07/26/2024 9:28 PM CDT): Lipid abnormalities are stable, reviewed previous lipid levels in [facility]. Continue statin therapy. Lipitor (atorvastatin) Order for lipid panel was given today to be obtained. Pt voiced understanding of lab drawn and continuation of current medication regimen. Assessment & Plan (03/30/2024 12:49 PM TENTER FRAME OPERATOR): Continue low fat eating- limit fried [...] prescribed. Assessment & Plan (01/13/2023 10:30 AM TENTER FRAME OPERATOR): Continue low fat eating- limit fried [...] prescribed. Assessment & Plan (05/03/2022 2:58 PM TENTER FRAME OPERATOR): Continue low fat eating- limit fried [...] day. Assessment & Plan (05/03/2021 11:09 AM TENTER FRAME OPERATOR): Continue low fat eating- limit fried [...] like she is doing well at assisted-living [facility] here in [place]. Continues on the duloxetine and lorazepam daily. Assessment & Plan (03/30/2024 1:37 PM TENTER FRAME OPERATOR): Not controlled, continue Lorazepam as needed Assessment & Plan (01/13/2023 10:32 AM TENTER FRAME OPERATOR): Stable, continue Duloxetine and Lorazepam as needed. Assessment & Plan (09/10/2022 3:18 PM CDT): Improved. Continue Duloxetine and uses Lorazepam as needed. Try not take this medication daily or terminal worker is at all possible as it can lead to dependence/addiction/tolerance, memory issues and may cause depression alf. Keep this medication out of the reach of other people. Do not drive or drink alcohol with this medication. Assessment & Plan (05/03/2022 3:00 PM TENTER FRAME OPERATOR): Chronic and unchanged. Continue Lorazepam as needed. Assessment & Plan (01/03/2022 1:31 PM CDT): Stable, continue Lorazepam as needed Assessment & Plan (11/08/2020 5:25 PM CDT): Stable, continue Clonazepam Assessment & Plan (05/22/2020 8:01 PM CDT): Stable, continue Clonazepam as needed. Do not take this medication daily or terminal worker is at all possible as it can lead to dependence/addiction/tolerance, memory issues and may cause depression alf. Keep this medication out of the reach [...] disease) Assessment & Plan (03/30/2024 12:53 PM TENTER FRAME OPERATOR): Try to eat smaller more frequent [...] weight. Assessment & Plan (01/13/2023 10:32 AM TENTER FRAME OPERATOR): Try to eat smaller more frequent [...] weight. Assessment & Plan (05/03/2022 2:59 PM TENTER FRAME OPERATOR): Try to eat smaller more frequent [...] weight. Assessment & Plan (05/03/2021 11:09 AM TENTER FRAME OPERATOR): Try to eat smaller more frequent [...] (06/12/2018): Added automatically from request for surgery [id number] Encounter for weight management 06/05/2018 07/22/2024 Dyslipidemia [...] needed Assessment & Plan (04/10/2018 4:07 PM TENTER FRAME OPERATOR): The patient has done very well [...] x-rays. Assessment & Plan (02/18/2018 11:58 AM TENTER FRAME OPERATOR): Treatment options were discussed. The patient [...] on calories. Most people should eat between 8369-0274 calories to lose weight. Decrease your carbohydrate [...] on calories. Most people should eat between 0713-7003 calories to lose weight. Decrease your carbohydrate [...] 07/22/2024 Assessment & Plan (04/15/2017 12:41 PM TENTER FRAME OPERATOR): Will do ambulatory PT as she [...] disease Assessment & Plan (03/30/2024 12:49 PM TENTER FRAME OPERATOR): The blood pressure is adequately controlled. [...] way. Assessment & Plan (01/13/2023 10:30 AM TENTER FRAME OPERATOR): The blood pressure is adequately controlled. [...] way. Assessment & Plan (05/03/2022 2:57 PM TENTER FRAME OPERATOR): The blood pressure is adequately controlled. [...] way. Assessment & Plan (05/03/2021 11:08 AM TENTER FRAME OPERATOR): The blood pressure is adequately controlled. [...] today. Assessment & Plan (03/30/2024 12:53 PM TENTER FRAME OPERATOR): Continue to increase water intake. Limit [...] weight. Assessment & Plan (01/13/2023 10:32 AM TENTER FRAME OPERATOR): Continue to increase water intake. Limit use of NSAIDs including Ibuprofen, Aleve, Motrin, etc. Continue aerobic exercise and maintain a healthy weight. Assessment & Plan (09/10/2022 3:20 PM CDT): Continue to increase water intake. Limit use of NSAIDs including Ibuprofen, Aleve, Motrin, etc. Continue aerobic exercise and maintain a healthy weight. Assessment & Plan (05/03/2022 3:00 PM TENTER FRAME OPERATOR): Continue to increase water intake. Limit use of NSAIDs including Ibuprofen, Aleve, Motrin, etc. Continue aerobic exercise and maintain a healthy weight. Assessment & Plan (01/03/2022 1:31 PM CDT): Continue to increase water intake. Limit use of NSAIDs including Ibuprofen, Aleve, Motrin, etc. Continue aerobic exercise and maintain a healthy weight. Assessment & Plan (05/03/2021 11:10 AM TENTER FRAME OPERATOR): Continue to increase water intake. Limit [...] Description 10/25/2024 2:00 PM CDT Office Visit [facility] Primary Care at [address] [phone] Tracy Hernández NP Post-menopausal (Primary Dx); Drug-induced constipation; Other chronic pain; Chronic pain of right knee; Primary insomnia; Acquired hypothyroidism; Generalized anxiety disorder with panic attacks; Major depression single episode, in partial remission 10/18/2024 Orders Only [facility] Primary Care at [address] [phone] Chente Palmer MD 09/20/2024 Orders Only [facility] Primary Care at [address] [phone] Tracy Hernández NP 09/20/2024 Orders Only [facility] Medicine Ophthalmology [address] [facility] ([place], [place]) 6th Floor, [address] [place] for [facility] [place] [address] Jackie Mckeon, HAFSA Encounter for observation for other suspected diseases and conditions ruled out (Primary Dx) 09/17/2024 12:32 PM CDT - 09/17/2024 11:59 PM CDT Hospital Encounter [address] [address] Frequent UTI Discharge Disposition: Discharge to home or self care 09/17/2024 12:30 PM CDT Lab [facility] Outpatient Lab at [address] [phone] 09/17/2024 Results Follow-Up [facility] Primary Care at [address] [phone] Tracy Hernández NP Basic metabolic panel, TSH, eGFR, Urine culture Urine, clean voided 09/16/2024 3:06 PM CDT - 09/16/2024 11:59 PM CDT Hospital Encounter [address] [address] Stage 3a chronic kidney disease (HCC); Acquired hypothyroidism Discharge Disposition: Discharge to home or self care 09/16/2024 3:00 PM CDT Lab [facility] Medical [facility] Outpatient Lab at [address] [phone] 09/16/2024 2:00 PM CDT Office Visit [facility] Primary Care at [address] [phone] Tracy Hernández NP Stage 3a chronic kidney [...] disease) stage 3, GFR 30-59 ml/min ([facility]) Ocular migraine 03/13/2015 Cataract removed Brain [...] on file Legal Sex Female 11:38 PM TENTER FRAME OPERATOR Gender Identity Female 08/02/2019 9:59 AM [...] 12/22/2014, 05/01 Medical Devices Implanted Type Area Complex Human Resources Manager Device Identifier Shelf Expiration Date Model / Serial / Lot [employer] 6191-1-010 Simplex P Radiopaque Full Dose Cement Bone Sterile - [id number] Implanted:Qty: 1 on 07/15/2018 by Irving Mccauley MD at [facility] Bone Cement Left: Knee [employer] 07/31/2020 6191-1-010 / / [id number] [employer] 6191-1-010 Simplex P Radiopaque Full Dose Cement Bone Sterile - [id number] Implanted:Qty: 1 on 07/15/2018 by Irving Mccauley MD at [facility] Bone Cement Left: Knee [employer] 07/31/2020 6191-1-010 / / [id number] Baseplate Shoulder 15mm Length - [id number] Implanted:Qty: 1 on 12/10/2017 by Tayo Murray DO at [facility] Right: Shoulder Integra [employer] Rhea 09/30/2022 GBP-0960-0 30-15 / / [id number] Screw 5.5mm 20mm Length Shoulder - [id number] Implanted:Qty: 1 on 12/10/2017 by Tayo Murray DO at [facility] Right: Shoulder Integra [employer] Rhea 07/29/2022 SCW-0960-0 55-20 / / [id number] Screw And Cap 4.5mm 15mm Shoulder - [id number] Implanted:Qty: 2 on 12/10/2017 by Tayo Murray DO at [facility] Right: Shoulder Integra [employer] Rhea 08/28/2020 SSC-0960-0 45-15 / / [id number] Screw And Cap 4.5mm 20mm Shoulder - [id number] Implanted:Qty: 1 on 12/10/2017 by Tayo Murray DO at [facility] Right: Shoulder Integra [employer] Rhea 06/01/2022 SSC-0960-0 45-20 / / [id number] Screw And Cap 4.5mm 25mm Shoulder - [id number] Implanted:Qty: 1 on 12/10/2017 by Tayo Murray DO at [facility] Right: Shoulder Integra [employer] Rhea 05/30/2022 SSC-0960-0 45-25 / / [id number] Glenosphere Shoulder 5mm Eccentric - [id number] Implanted:Qty: 1 on 12/10/2017 by Tayo Murray DO at [facility] Right: Shoulder Integra [employer] Rhea 11/30/2021 GLS-0960-0 5E / / [id number] [employer] Rhea [id number] 1 Titan 16.5mm 12.1mm 90.4mm Press Fit 12 Spline Modular - [id number] Implanted:Qty: 1 on 12/10/2017 by Tayo Murray DO at [facility] Right: Shoulder Integra [employer] Rhea 09/30/2021 STEM-0920- 025-11 / / [id number] Body Shoulder Small Reverse [id number] - [id number] Implanted:Qty: 1 on 12/10/2017 by Tayo Murray DO at [facility] Right: Shoulder Integra [employer] Rhea 04/02/2022 BBS-0960-2 1SML / / [id number] Liner +0mm 9.6mm Standard 20mm 2.7mm 38.7mm Shoulder Humeral - [id number] - [id number] Implanted:Qty: 1 on 12/10/2017 by Tayo Murray DO at [facility] Right: Shoulder Integra [employer] Rhea 04/30/2021 LNR-0960-0 0S / LNR-0960-0 0S / [id number] [employer]Richco/O rtho [id number] Shannan Ii [id number] Knee Oval Component Patellar Uhmwpe - [id number] Implanted:Qty: 1 on 07/15/2018 by Irving Mccauley MD at [facility] Left: Knee [employer]/ Ortho [id number] 04/25/2028 [id number] / / [id number] [employer]Rich[employer]/O rtho [id number] Journey Knee Left 3 Baseplate Tibial - [id number] Implanted:Qty: 1 on 07/15/2018 by Irving Mccauley MD at [facility] Left: Knee [employer]/ Ortho [id number] 09/23/2027 [id number] / / [id number] [employer]/Rich[employer]/O rtho [id number] Journey Ii Cruciate Retain Knee Left 4 Component Femoral Cocr - [id number] Implanted:Qty: 1 on 07/15/2018 by Irving Mccauley MD at [facility] Left: Knee [employer]/ Ortho [id number] 12/06/2027 [id number] / / [id number] [employer]Rich[employer]/O rtho [id number] Journey Ii Left 3-4 Deep [facility] Insert Articular Xlpe - [id number] Implanted:Qty: 1 on 07/15/2018 by Irving Mccauley MD at [facility] Left: Knee [employer]/ Ortho [id number] 03/09/2026 [id number] / / [id number] Explanted Type Area Complex Human Resources Manager Device Identifier Shelf Expiration Date Model / Serial / Lot Integra [employer] [id number] 2mm 150mm Elbow Shoulder Guide Pin Orthopedic - [id number] Explanted:Qty: 2 on 12/10/2017 at [facility] Right: Shoulder Integra [employer] [id number] / / Procedures Procedure Name Priority [...] bacterial lashonda. (.) Comment:Testing performed by : [facility], [address] [place]., [address] Organism CITROBACTER FREUNDII COMPLEX CERNER Organism PLUS GROWTH OF CLINICALLY INSIGNIFICANT LASHONDA. CERNER Urine, clean voided 09/17/2024 12:32 PM CDT 09/18/2024 12:16 AM CDT Narrative CERNER CH - 09/19/2024 3:50 PM CDT Testing performed by [facility] Microbiology Laboratory ([phone]) Organism Antibiotic Method Susceptibility Citrobacter freundii complex [...] GENERAL OR DERABLES Final Result AAMIR ALAS [address] [facility] [place] [address] * eGFR (09/16/2024 3:06 PM [...] BLOOD ORDERABLES Final Re sult AAMIR ALAS [address] [facility] [place] [address] * TSH (09/16/2024 3:06 PM CDT) Thyroid Stimulating Hormone 3.35 0.30 - 4.20 mcIUnit/mL Blood 09/16/2024 3:06 PM CDT 09/16/2024 10:39 PM CDT Tracy Hernández NP LAB BLOOD ORDERABLES Final Re sult Performing Organization Address [facility]/ZIP Co de Phone Number AAMIR [address] [address] Department [place] [address] * Basic metabolic panel (09/16/2024 3:06 PM CDT) Sodium 139 135 - 145 mmol/L Potassium, pl 4.1 3.3 - 4.9 mmol/L [facility] Chloride 100 97 - 110 mmol/L [facility] CO2 26 22 - 32 mmol/L [facility] Anion gap 13 2 - 15 mmol/L [facility] BUN 24 6 - 25 mg/dL [facility] Creatinine 0.74 0.60 - 1.10 mg/dL [facility] Glucose 136 70 - 199 mg/dL [facility] [...] Final Re sult Performing Organization Address City/[facility]/ZIP Co de Phone Number AAMIR [phone] [address] Department [place] [address] * Dexa Axial Skeleton Bone Density 1 [...] Dual x-ray absorptiometry (DEXA) was performed using ePantry system. GENERAL GUIDELINES: According to WHO guidelines, [...] Dual x-ray absorptiometry (DEXA) was performed using HoloTriporati system. GENERAL GUIDELINES: According to WHO guidelines, [...] Advance Directives For more information, please contact: [phone] Documents on File Type Date Recorded Patient Education Professor Expl anation ADVANCE DIRECTIVE 08/20/2019 2:35 PM Power of Disaster Director-Medical ADVANCE DIRECTIVE 07/15/2018 11:14 AM ADVANCE DIRECTIVE [...] 3:25 PM 12/13/2017 4:26 PM Care Teams Motorcycle Sales Associate Relationship Specialty Start Date End Date Tracy Hernández NP [address] [facility] [address] [place], [place] [id number] PCP - General Family Medicine 07/22/24
--- OUTSIDE RECORDS SUMMARY | 2024-12-03 11:04 | XMS_ITS | Encounter Summary ---
Author Organization [facility] Address [address] [place] [address] Phone Care Team Providers Care Grader Green Meat Name Role Phone Matt Painting MD Primary Care Provider [phone] Tyesha Abarca DPT Unavailable Unavailable Yesi Cook DPT Unavailable Unavailable Renetta Pearl MA Unavailable [phone] Vernon Hernandez RN Unavailable [phone] Vernon Hernandez RN Unavailable [phone] Renetta Pearl MA Unavailable [phone] Shanna Oakes DIRECTOR INVESTOR RELATIONS Primary Care Provider [phone] Tracy Hernández DIRECTOR INVESTOR RELATIONS Primary Care Provider [phone] Encounter Details Date Type Department Care Team (Late st Contact Info) Description 06/12/[address] [facility] ProviderChente [place] [address] Social History Tobacco Use Types Packs/Day Years Used Date Smoking Tobacco: Never Smokeless Tobacco: Never Alcohol Use Standard Drinks/Week Comments No 0 (1 standard drink = 0.6 oz pur e alcohol) Comments Unknown Sex and Gender Information Value Date Recorded Sex Assigned at Not on file Legal Sex Female 11:38 PM PROJECTION PRINTER Gender Identity Female 08/02/2019 9:59 AM CDT [...] on filedocumented in this encounter Care Teams Grader Green Meat Relationship Specialty Start Date End Date Matt Painting MD [address] [facility] [address] [place] [address] PCP - General 05/31/16 12/08/19 Shanna Oakes NP [address] [facility] [address] [place] [address] PCP - General Internal Medicine 12/09/19 07/21/24 Tracy Hernández NP [address] [facility] [address] [place] [address] PCP - General Family Medicine 07/22/24 Tyesha Abarca DPT Physical Therapist Physical Therapy 04/30/17 02/08/18 Yesi Cook DPT Physical Therapist Physical Therapy 07/30/17 03/06/20 Renetta Pearl MA [address] [facility] [address] [place] [address] ACO Care Hair Designer 12/15/17 12/31/17 Vernon Hernandez, OPHELIA [address] [facility] [address] [place] [address] Corpsman 01/01/18 02/11/18 Vernon Hernandez RN [address] [facility] [address] [place] [address] [employer] Outpatient Estimator Printing 07/20/18 10/15/18 Renetta Pearl MA [address] [facility] [address] [place], [place] [id number] ACO Care Hair Designer 07/21/18 07/21/18 documented as of this encounter
--- OUTSIDE RECORDS SUMMARY | 2024-12-03 11:04 | XMS_ITS | Encounter Summary ---
Author Organization [facility] Address [address] [place] [address] Care Team Providers Care Color Developer Name Role Phone Shanna Oakes NP Primary Care Provider Tracy Hernández NETWORK AND THREAT SUPPORT SPECIALIST Primary Care Provider [phone] Encounter Details Date Type Department Care Team (Late st Contact Info) Description 12/20/2020 Telephone [facility] - Interventional Radiology [address] [place] [address] Juanis Mejia RN Social History [...] on file Legal Sex Female 11:38 PM BUSINESS SERVICES SPECIALIST SALES Gender Identity Female 08/02/2019 9:59 AM CDT Sexual Orientation Straight 06/03/2018 6: 51 PM CDT documented as of this encounter Plan of Treatment Not on file documented as of this encounter Visit Diagnoses Not on filedocumented in this encounter Care Teams Color Developer Relationship Specialty Start Date End Date Shanna Oakes NP PCP - General Internal Medicine 12/09/19 07/21/24 Tracy Hernández NP [address] [address] PCP - General Family Medicine 07/22/24 documented as of this encounter
--- OUTSIDE RECORDS SUMMARY | 2024-12-03 11:04 | XMS_ITS | Encounter Summary ---
Author Organization [facility] Healthcare Address [address] [place] [address] Care Team Providers Care Sawmill Or Timber Yard Worker Name Role Phone Yesi Cook DPT Unavailable Unavailable Shanna Oakes NP Primary Care Provider [phone] Tracy Hernández EMBOSSING TOOL SETTER Primary Care Provider [phone] Encounter Details Date Type Department Care Team (Late st Contact Info) Description 12/28/2019 Telephone [facility] [address] [place] [id number] Melanie Del Rio, Social History Tobacco Use [...] on file Legal Sex Female 11:38 PM ACTIVITY LEADER Gender Identity Female 08/02/2019 9:59 AM CDT Sexual Orientation Straight 06/03/2018 6: 51 PM CDT documented as of this encounter Plan of Treatment Not on file documented as of this encounter Visit Diagnoses Not on filedocumented in this encounter Care Teams Sawmill Or Timber Yard Worker Relationship Specialty Start Date End Date Shanna Oakes NP PCP - General Internal Medicine 12/09/19 07/21/24 Tracy Hernández NP [address] [address] PCP - General Family Medicine 07/22/24 Yesi Cook, VENITAT Physical Therapist Physical Therapy 07/30/17 03/06/20 documented as of this encounter
--- OUTSIDE RECORDS SUMMARY | 2024-12-03 11:04 | XMS_ITS | Encounter Summary ---
Author Organization [facility] Address [address] [place] [address] Phone Care Team Providers Care Restaurant General Manager Name Role Phone Matt Painting MD Primary Care Provider [phone] Tyesha Abarca DPT Unavailable Unavailable Yesi Cook DPT Unavailable Unavailable Renetta Pearl MA Unavailable [phone] Vernon Hernandez RN Unavailable [phone] Vernon Hernandez RN Unavailable [phone] Renetta Pearl MA Unavailable [phone] Shanna Oakes WAIT STAFF Primary Care Provider [phone] Tracy Hernández WAIT STAFF Primary Care Provider [phone] Encounter Details Date Type Department Care Team (Late st Contact Info) Description 04/15/2017 Orders Only [facility] ProviderChente [place] [address] Social History Tobacco Use Types Packs/Day Years Used Date Smoking Tobacco: Never Smokeless Tobacco: Never Alcohol Use Standard Drinks/Week Comments No 0 (1 standard drink = 0.6 oz pur e alcohol) Comments Unknown Sex and Gender Information Value Date Recorded Sex Assigned at Not on file Legal Sex Female 11:38 PM BACKROOM ASSOCIATE Gender Identity Female 08/02/2019 9:59 AM CDT Sexual Orientation Straight 06/03/2018 6: 51 PM CDT documented as of this encounter Plan of Treatment Not on file documented as of this encounter Procedures Procedure Name Priority Date/Time Associated Diagnosis Comments DISCHARGE LABORATORY CUMULATIVE REPORT 04/15/2017 12:00 AM BACKROOM ASSOCIATE documented in this encounter Results * DISCHARGE LABORATORY CUMULATIVE REPORT (04/15/2017 12:00 AM BACKROOM ASSOCIATE) Narrative 04/15/2017 12:00 AM BACKROOM ASSOCIATE Ordered by an unspecified provider. us Historical Provider LAB BLOOD ORDERABLES Arline l Result documented in this encounter Visit Diagnoses Not on filedocumented in this encounter Care Teams Restaurant General Manager Relationship Specialty Start Date End Date Matt Painting MD [address] [facility] [address] [place] [address] PCP - General 05/31/16 12/08/19 Shanna Oakes NP [address] [place] [address] [address] [place] [address] PCP - General Internal Medicine 12/09/19 07/21/24 Tracy Hernández NP [address] [facility] [address] [place] [address] PCP - General Family Medicine 07/22/24 Tyesha Abarca DPT Physical Therapist Physical Therapy 04/30/17 02/08/18 Yesi Cook DPT Physical Therapist Physical Therapy 07/30/17 03/06/20 Renetta Pearl MA [address] [place] [address] [address] [place] [address] ACO Care Medical Review Coordinator 12/15/17 12/31/17 Vernon Hernandez, OPHELIA [address] [place] [address] [address] [place] [address] Putter In 01/01/18 02/11/18 Vernon Hernandez RN [address] [facility] [address] [place], [place] [id number] [facility] Outpatient Quartz Cutter 07/20/18 10/15/18 Renetta Pearl MA [address] [facility] [address] [place], [place] [id number] ACO Care Medical Review Coordinator 07/21/18 07/21/18 documented as of this encounter
--- OUTSIDE RECORDS SUMMARY | 2024-12-03 11:04 | XMS_ITS | Encounter Summary ---
Author Organization [facility] Healthcare Address [address] [place] [address] Care Team Providers Care High Density Finishing Operator Name Role Phone Matt Painting MD Primary Care Provider [phone] Yesi Cook DPT Unavailable Unavailable Vernon Hernandez RN Unavailable Renetta Pearl MA Unavailable Shanna Oakes CALL CENTER SUPERVISOR Primary Care Provider [phone] Tracy Hernández CALL CENTER SUPERVISOR Primary Care Provider [phone] Encounter Details Date Type Department Care Team (Late st Contact Info) Description 06/24/2018 Documentation [facility] Case Management [address] [place] [id number] Opal Marsh MSW Social History Tobacco Use Types Packs/Day Years Used Date Smoking Tobacco: Never Smokeless Tobacco: Never Alcohol Use Standard Drinks/Week Comments No 0 (1 standard drink = 0.6 oz pur e alcohol) Comments No Sex and Gender Information Value Date Recorded Sex Assigned at Not on file Legal Sex Female 11:38 PM COLOR PRINT INSPECTOR Gender Identity Female 08/02/2019 9:59 AM CDT [...] Pt [facility] a [facility]. Secondary choice is the [facility] in [place]. Pt informed that the referral will be sent upon admission for placement if PT recs SNF. SW will followafter surgery. documented in this encounter Plan of Treatment Not on file documented as of this encounter Visit Diagnoses Not on filedocumented in this encounter Care Teams High Density Finishing Operator Relationship Specialty Start Date End Date Matt Painting MD [address] [facility] [address], [place] [address] PCP - General 05/31/16 12/08/19 Shanna Oakes NP [address] [place] [address] [address] [place] [address] PCP - General Internal Medicine 12/09/19 07/21/24 Tracy Hernández NP [address] [facility] [address] [place] [address] PCP - General Family Medicine 07/22/24 Yesi Cook DPT Physical Therapist Physical Therapy 07/30/17 03/06/20 Vernon Hernandez RN [address] [place], [place] [address]R[address] [address] [facility] Outpatient Asbestos Wire Finisher 07/20/18 10/15/18 Renetta Pearl, SONIA [address] [place] [address] ACO Care Certified Activities Director 07/21/18 07/21/18 documented as of this encounter
--- OUTSIDE RECORDS SUMMARY | 2024-12-03 11:04 | XMS_ITS | Encounter Summary ---
Author Organization [facility] Healthcare Address [address] [place] [address] Care Team Providers Care Geosciences Faculty Member Name Role Phone Matt Painting MD Primary Care Provider [phone] Tyesha Abarca DPT Unavailable Unavailable Yesi Cook DPT Unavailable Unavailable Renetta Pearl MA Unavailable [phone] Vernon Hernandez RN Unavailable [phone] Vernon Hernandez RN Unavailable [phone] Renetta Pearl MA Unavailable [phone] Shanna Oakes PROGRAM AIDE Primary Care Provider [phone] Tracy Hernández PROGRAM AIDE Primary Care Provider [phone] Encounter Details Date Type Department Care Team (Late st Contact Info) Description 11/28/2017 Documentation [facility] Case Management [address] [place] [address] Opal Marsh MSW Social History Tobacco Use Types Packs/Day Years Used Date Smoking Tobacco: Never Smokeless Tobacco: Never Alcohol Use Standard Drinks/Week Comments No 0 (1 standard drink = 0.6 oz pur e alcohol) Comments Unknown Sex and Gender Information Value Date Recorded Sex Assigned at Not on file Legal Sex Female 11:38 PM COMPENSATION ADVISOR Gender Identity Female 08/02/2019 9:59 AM [...] on filedocumented in this encounter Care Teams Geosciences Faculty Member Relationship Specialty Start Date End Date Matt Painting MD [address] [facility] [address] [address] PCP - General 05/31/16 12/08/19 Shanna Oakes NP [address] [place] [address] [address] [place] [address] PCP - General Internal Medicine 12/09/19 07/21/24 Tracy Hernández NP [address] [facility] [address] [place] [address] PCP - General Family Medicine 07/22/24 Tyesha Abarca, KIMBERLY Physical Therapist Physical Therapy 04/30/17 02/08/18 Joyce, Yesi E., DPT Physical Therapist Physical Therapy 07/30/17 03/06/20 Renetta Pearl MA [address] [facility] [address] [place] [address] ACO Care Block Mechanic 12/15/17 12/31/17 Vernon Hernandez RN [address] [place] [address] [address] [place], [place] [id number] Glass Crusher 01/01/18 02/11/18 Vernon Hernandez RN [address] [place] [address] [address] [place], [place] [id number] [facility] Outpatient Peanut Vendor 07/20/18 10/15/18 Renetta Pearl MA [address] [facility] [address] [place] [address] ACO Care Block Mechanic 07/21/18 07/21/18 documented as of this encounter
[2024-12-03 11:22] LABS: Add Urine Microscopic? YES; Appearance Urine Cloudy (Clear); Glucose Urine UA Negative (Negative); Leukocyte Esterase Ur 3+ LEU/UL (Negative); Need Manual Microscopic Reviewed; Nitrate Urine Negative (Negative); Non Pathogenic Casts 0-2; Specific Grav Ur 1.012 (1.001-1.035)
[2024-12-03] MEDS: CEPHALEXIN 500 MG CAPSULE PO (11:34)
[2024-12-03 12:20] LABS: Hematocrit 40.1 % (37.0-47.0); Hemoglobin 13.4 g/dL (12.0-15.0); Immature Granulocyte Percent A 0.3 % (0-0.5); Lymphocytes Absolute Auto 2.07 K/mm3 (0.9-3.2); Mean Corpuscular HGB Conc 33.4 g/dl (32-36); Mean Corpuscular Hemoglobin 32.7 pg (26-34); Mean Corpuscular Volume 97.8 fl (80-100); Nucleated Red Blood Cells Absolute Auto 0.000 K/mm3 (0.0-0.012); Nucleated Red Blood Cells Perc 0.0 % (0.0-0.2); Platelet Count Result 188 k/mm3 (150-375); Red Blood Count 4.10 M/mm3 (4.2-5.4); White Blood Count 7.6 K/mm3 (4.5-10.0)
[2024-12-03 12:31] LABS: Alanine Aminotransferase 16 U/L (6-35); Albumin Level 4.2 g/dL (3.5-5.1); Alkaline Phosphatase 92 U/L (38-126); Anion Gap 9 mmol/L (4-12); Aspartate Amino Transferase 29 U/L (14-36); Bilirubin,Total 0.6 mg/dL (0.2-1.3); Blood Urea Nitrogen 16 mg/dL (7-17); Calcium 9.3 mg/dL (8.4-10.2); Carbon Dioxide 31 mmol/L (22-30); Chloride 95 mmol/L (98-107); Estimated CRCL calculation 55 ml/min; Estimated Glomerular Filt Rate > 60; Glucose 95 mg/dL (65-110); INR 1.0; Potassium 3.6 mmol/L (3.4-5.0); Prothrombin Time 13.4 Seconds (11.1-14.7); Sodium 135 mmol/L (137-145); Total Protein 7.6 g/dL (6.3-8.2)
[2024-12-03 12:32] LABS: Partial Thromboplastin Time 28.3 Seconds (22.3-36.8)
[2024-12-03 13:08] LABS: Thyroid Stimulating Hormone Reflex 0.832 uIU/mL (0.465-4.68)
[2024-12-03 13:56] VITALS: BMI 27.6
--- NOTE | 2024-12-03 13:57 | P.HP_ITS ---
H&P: HPI History of Present Illness Date/Time: 12/03/24 13:57 Chief Complaint: Weakness Narrative: 89-year-old female past medical history of hypothyroidism, hyperlipidemia, hypertension, and history of frequent UTIs who presents with complaints of weakness, urinary frequency and burning. Patient states that she feels like she is dehydrated is not drinking enough water. Patient denies urinary burning at this time and states that she feels weaker than normal. She states that she has not urinated since about 10:00 a.m. this morning. About 8 hours ago. She denies nausea vomiting. Lab work in the ED shows sodium of 135, chloride of 95, carbon dioxide 31, creatinine of 0.59, UA is cloudy with 3+ leukocyte esterase over 100 wbc's. Patient is being admitted for acute UTI and has been started on IV antibiotics Review of Systems Review of Systems: 12 systems were reviewed and are negativ e except for as per HPI. [facility] Past Medical History Medical History History of recurrent UTIs Elevated fecal calprotectin Abnormal CT scan Abdominal pain Bloating Constipation Degenerative disc disease Hypothyroid Hyperlipidemia Migraine Hypertension Spinal stenosis Surgical History Surgical History History of hysterectomy Family History Family History (Updated 12/03/24 @ 14:09 by Christi Pride RN) Father Acute myocardial infarction Mother Acute myocardial infarction Social History Social History Smoking status: Never smoker Alcohol intake: current Drinks per week: 14 Substance use: never Substance use type: does not use Lack of Transportation: No Lack of Food: Never True Current Housing: I Have Housing Concerned About Future Housing: No Difficulty Paying Gas/Electric Bills: No Difficulty Paying for Meds: No Currently Unemployed: No Education: Associate Degree Difficulty w/ Childcare or Family Care: No Gender identity (if verbalized by the patient): Female Spiritual care concerns: No Meds Home Medications and Allergies Home Medications ?Medication ?Instructions ?Recorded ?Confirmed ?Type amlodipine 5 mg tablet 5 mg PO DAILY 01/06/1912/03 History atorvastatin 20 mg tablet 20 mg PO DAILY 01/06/1905/25 History duloxetine 60 mg capsule,delayed 120 mg PO DAILY 01/0612/03/24 History release hydrochlorothiazide 12.5 mg capsule 12.5 mg PO DAILY 1 03/08/18 12/03/24 History potassium chloride 10 mEq 20 meq PO DAILY 01/06/1905/25 History tablet,extended release loratadine 10 mg tablet 10 mg PO DAILY #20 tabs 12/0112/03/24 Rx levothyroxine 50 mcg tablet 100 mcg PO DAILY 07/28/24 12/03/24 History (Synthroid) zolpidem 10 mg tablet 6.25 mg PO QHS 09/09/24 1005/25 History ibuprofen 400 mg tablet 400 mg PO TID #14 tabs 09/2812/03/24 Rx acetaminophen 500 mg capsule 1,000 mg (2 x 500 mg) PO Q6H PRN 10/14/24 12/03/24 Rx pain #60 caps oxycodone 5 mg tablet 5 mg PO Q4H PRN pain #14 tab s 10/14/24 12/03/24 Rx linaclotide 145 mcg capsule 145 mcg PO DAILY 1 month # 30 caps 11/23/24 12/03/24 Rx (Linzess) aspirin 81 mg tablet,delayed 81 mg PO DAILY 12/03/24 1 History release (Adult Aspirin Regimen) cephalexin 500 mg capsule 500 mg PO Q8H 7 days #21 cap s 12/03/24 Rx gabapentin 300 mg capsule 300 mg PO DAILY 12/03/2405/25 History lorazepam 0.5 mg tablet 0.5 mg PO BID PRN anxiety 12/03/24 History omeprazole 20 mg capsule,delayed 20 mg PO DAILY 12/03/24 History release tramadol 50 mg tablet 50 mg PO BID PRN pain 12/03/24 History Allergies Allergy/AdvReac Type Severity Reaction Status Date / Time ciprofloxacin Allergy Intermediate Other Verified 11/16/24 10:45 valsartan Allergy Unknown Other Verified 11/16/24 10:45 nitrofurantoin AdvReac Mild Nausea,Vomiting, Verified 11/16/24 10:45 Diarrhea sulfamethoxazole AdvReac Unknown UPSET Verified 11/16/24 10:45 STOMACH trimethoprim AdvReac Unknown UPSET Verified 11/16/24 10:45 STOMACH Vital Signs Vital Signs - 24 hr 12/03/24 10:00 Pulse Rate 82 Respiratory Rate 15 Blood Pressure 112/90 Pulse Oximetry 96 Oxygen Delivery Room Air Exam Narrative: General: well appearing, appears stated age. HEENT: normocephalic, atraumatic. Mucous membranes moist. EOMI, PERRLA, bilateral sclera anicteric, no conjunctival injection. Neck supple without JVD, lymphadenopathy, or bruit. Respiratory: clear to ascultation bilaterally. No rales/rhonic/wheezes. Cardiovascular: Regular rate and rhythm, normal S1-S2 upon ascultation. No murmurs, rubs, or clicks. PMI is nondisplaced, capillary refill less than 3 second. Abdomen: Soft, round, no pulsatile masses, nondistended and nontender. No rebound, no guarding. No CVA tenderness, no hepatosplenomegaly. Bowel sounds present to all four quadrants. No high pitch or tinkling sounds, resonant to percussion. Extremities: No cyanosis, clubbing, or edema present. Pulses are palpable 2/2. Active ROM to all four extremities. Neuro: Alert and orientated x 4. PERRLA. Cranial nerves 2-12 intact without focal deficit. Skin: Warm, dry, and intact, without rash, erythema, or lesion. Psych: pleasant, cooperative, normal speech, normal affect, no hallucinations, no dysarthia H&P: Results Labs Labs: Short CBC 12/03/24 Range/Units 12:11 WBC 7.6 (4.5-10.0) K/mm3 Hgb 13.4 (12.0-15.0) g/dL Hct 40.1 (37.0-47.0) % Plt Count 188 (150-375) k/mm3 BMP 12/03/24 12:11 Sodium 135 L Potassium 3.6 Chloride 95 L Carbon Dioxide 31 H BUN 16 Creatinine 0.59 L Glucose 95 Calcium 9.3 Liver Function 12/03/24 Range/Units 12:11 Total Bilirubin 0.6 (0.2-1.3) mg/dL AST 29 (14-36) U/L ALT 16 (6-35) U/L Alkaline Phosphatase 92 (38-126) U/L Albumin 4.2 (3.5-5.1) g/dL Urine 12/03/24 Range/Units 10:24 Urine Color Yellow (Yellow) Urine Appearance Cloudy H (Clear) Urine pH 7.0 (5.0-9.0) Ur Specific [place] 1.012 (1.001-1.035) Urine Protein 2+ H (Negative) mg/dL Urine Glucose (UA) Negative (Negative) mg/dL Assessment and Plan Assessment and plan (1) Acute UTI: Code(s): N39.0 - Urinary tract infection, site not specified Status: Acute Assessment and Plan: IV Rocephin Culture and sensitivity pending Blood cultures pending IVF (2) Constipation: Code(s): K59.00 - Constipation, unspecified Status: Acute Assessment and Plan: Colace (3) Hypothyroid: Code(s): E03.9 - Hypothyroidism, unspecified Status: Acute Assessment and Plan: Lisinopril (4) Hypertension: Code(s): I10 - Essential (primary) hypertension Status: Acute Assessment and Plan: Hold antihypertensives due to dehydration (5) Hyperlipidemia: Code(s): E78.5 - Hyperlipidemia, unspecified Status: Acute Assessment and Plan: Continue statin Quality VTE Prophylaxis VTE prophylaxis: mechanical ordered and pharmacologic ordered Hospitalist MIPS Advance Care Plan I have confirmed that the patient's Advanced Care Plan is present, code status is documented, or surrogate decision maker is listed in patient medical record.: Yes Medication Reconciliation I have utilized all available resources to obtain, update and review the patients current medications (includes all prescriptions, OTC, herbals, cannabis, and nutritional supplements).: Yes
--- NOTE | 2024-12-03 13:57 | ADMGEN ---
This patient, Latasha Menard, was admitted to Medical Room 246-. Patient/family oriented to hospital policies and general routines including ID bracelet, bed and alarms, visiting hours, pain management, procedures, bathroom and other care routines, personal items, smoking policy, room service/diet, and visiting hours. Information on how to activate the Rapid Response Team has been discussed. Patient/Family are encouraged to report perceived risks to care and to ask questions if they do not understand what they are told or what they should do.
[2024-12-03 14:00] VITALS: BP 132/73; PULSE 81; RESP 16; TEMP 36.3; O2SAT 100
--- NOTE | 2024-12-03 14:30 | PC.NURSE ---
RN called [facility] to request medication list. RN said she would be faxing it over.
[2024-12-03 14:58] VITALS: BMI 27.6
[2024-12-03] MEDS: DOCUSATE SODIUM 100 MG CAPSULE PO (17:38)
[2024-12-03] MEDS: ACETAMINOPHEN 325 MG TABLET 650 MG PO ×2 (17:38→21:46)
[2024-12-03] MEDS: cefTRIAXone 1 GM in SODIUM CHLORIDE 0.9% IV 50 ML 100 ML IVPB (17:38)
[2024-12-03] MEDS: traMADol HCL (*CRX) 50 MG TABLET PO (18:19)
[2024-12-03] MEDS: LORazepam (*CRX) 0.5 MG TABLET PO ×2 (18:19→23:50)
[2024-12-03 20:24] VITALS: BP 111/73; PULSE 79; RESP 18; TEMP 35.7; O2SAT 98
[2024-12-03] MEDS: SODIUM CHLORIDE 0.9% IV 500 ML IV CONT (20:33)
[2024-12-03] MEDS: ZOLPIDEM TARTRATE (*CRX) 5 MG TABLET PO (20:34)
[2024-12-03] MEDS: SODIUM CHLORIDE 0.9% IV 1,000 ML 75 ML IV CONT (21:45)
[2024-12-04] MEDS: traMADol HCL (*CRX) 50 MG TABLET PO ×3 (02:20→17:49)
[2024-12-04 03:25] VITALS: BP 130/62; PULSE 71; RESP 18; TEMP 36.4; O2SAT 99
[2024-12-04 05:24] LABS: Hematocrit 39.7 % (37.0-47.0); Hemoglobin 13.2 g/dL (12.0-15.0); Immature Granulocyte Percent A 0.2 % (0-0.5); Lymphocytes Absolute Auto 2.29 K/mm3 (0.9-3.2); Mean Corpuscular HGB Conc 33.2 g/dl (32-36); Mean Corpuscular Hemoglobin 33.2 pg (26-34); Mean Corpuscular Volume 100.0 fl (80-100); Nucleated Red Blood Cells Absolute Auto 0.000 K/mm3 (0.0-0.012); Nucleated Red Blood Cells Perc 0.0 % (0.0-0.2); Platelet Count Result 186 k/mm3 (150-375); Red Blood Count 3.97 M/mm3 (4.2-5.4); White Blood Count 5.9 K/mm3 (4.5-10.0)
[2024-12-04 05:47] LABS: Anion Gap 7 mmol/L (4-12); Blood Urea Nitrogen 11 mg/dL (7-17); Calcium 9.1 mg/dL (8.4-10.2); Carbon Dioxide 31 mmol/L (22-30); Chloride 99 mmol/L (98-107); Estimated CRCL calculation 60 ml/min; Estimated Glomerular Filt Rate > 60; Glucose 117 mg/dL (65-110); Potassium 3.6 mmol/L (3.4-5.0); Sodium 137 mmol/L (137-145)
[2024-12-04] MEDS: LEVOTHYROXINE SODIUM 100 MCG TABLET PO (06:13)
--- NOTE | 2024-12-04 07:14 | P.PNIM_ITS ---
Progress Note: A&P Assessment and Plan (1) Acute UTI: Code(s): N39.0 - Urinary tract infection, site not specified Status: Acute Assessment and Plan: - UA with 3+ LE, >100 WBC - symptomatic with weakness, suprapubic/flank pain, urinary hesitancy - last culture 08/2024 with pansensitive E. Coli - afebrile, no leukocytosis, HDS - continue IV Rocephin. Await urine culture. (2) Constipation: Code(s): K59.00 - Constipation, unspecified Status: Acute Assessment and Plan: - continue home Colace, Linzess (3) Hypothyroid: Code(s): E03.9 - Hypothyroidism, unspecified Status: Acute Assessment and Plan: - continue Synthroid (4) Hypertension: Code(s): I10 - Essential (primary) hypertension Status: Acute Assessment and Plan: - resume home amlodipine. Hold HCTZ due to dehydration. (5) Hyperlipidemia: Code(s): E78.5 - Hyperlipidemia, unspecified Status: Acute Assessment and Plan: -Continue statin Plan DVT prophylaxis: Lovenox Code status: full code Dispo: home once cultures result Subjective Date/time seen: 12/04/24 07:14 Interval history: 89-year-old female past medical history of hypothyroidism, hyperlipidemia, hypertension, and history of frequent UTIs who presents with complaints of weakness, urinary frequency and burning. Patient seen and examined at bedside. Feeling less weak this AM. Still having dysuria, urgency and flank pain. Review of Systems Review of Systems: 12 systems were reviewed and are negativ e except for as per HPI. All systems reviewed & are unremarkable except as noted in HPI and below Exam Narrative: General: NAD. Appears deconditioned. Eyes: EOMI ENT: neck supple Cardiovascular: Regular rate and rhythm Respiratory: Clear to auscultation, respirations even and unlabored on RA Gastrointestinal: Soft, non tender Genitourinary: no suprapubic tenderness. Mild L CVA tenderness. Musculoskeletal: No edema Skin: warm, dry Neuro: Alert. Psych: Mood appropriate Objective Data Vital Signs Vital Signs: Vital Signs - 24 hr 12/03/24 10:00 12/03/24 14:00 12/03/24 14:16 Temperature 97.3 F L Pulse Rate 82 81 Respiratory Rate 15 16 Blood Pressure 112/90 132/73 Pulse Oximetry 96 100 Oxygen Delivery Room Air Room Air 12/03/24 20:00 12/03/24 20:24 12/04/24 03:25 Temperature 96.3 F L 97.6 F Pulse Rate 79 71 Respiratory Rate 18 18 Blood Pressure 111/73 130/62 Pulse Oximetry 98 99 Oxygen Delivery Room Air Intake/Output Intake/Output: Intake & Output 12/01/24 12/02/24 12/03/24 12/04/24 23:59 23:59 23:59 23:59 Intake Total 0 290 Output Total 50 Balance -50 290 Meds/Results Medications: Active Medications Generic Name Dose Route Start Last Admin Trade Name Freq PRN Reason Stop Dose Admin Acetaminophen 650 mg 12/03/24 14:03 12/03/24 21:46 Acetaminophen 325 Mg Tablet PO 650 mg Q4H PRN Administration Mild Pain (1-3) or Fever Amlodipine Besylate 5 mg 12/04/24 09:00 Amlodipine Besylate 5 Mg Tablet PO DAILY LESLIE Aspirin 81 mg 12/04/24 09:00 Aspirin 81 Mg Enteric Tablet PO DAILY [facility] Atorvastatin Calcium 20 mg 12/04/24 09:00 Atorvastatin 20 Mg Tablet PO DAILY LESLIE Docusate Sodium 100 mg 12/03/24 17:00 12/03/24 17:38 Docusate Sodium 100 Mg Capsule PO 100 mg BID LESLIE Administration Duloxetine HCl 120 mg 12/04/24 09:00 Duloxetine Hcl 60 Mg Capsule.Dr PO DAILY LESLIE Enoxaparin Sodium 40 mg 12/04/24 09:00 Enoxaparin 40 Mg/0.4 Ml Syringe SUB-Q DAILY [facility] Gabapentin 300 mg 12/04/24 09:00 Gabapentin 300 Mg Capsule PO DAILY LESLIE Ceftriaxone Sodium 1 gm/ 50 mls @ 100 mls/hr 12/03/24 18:00 12/03/24 17:38 Sodium Chloride IVPB 100 mls/hr Q24H LESLIE Administration Sodium Chloride 1,000 mls @ 75 mls/hr 12/03/24 19:45 12/03/24 21:45 Normal Saline Iv IV CONT 75 mls/hr .[id number] LESLIE Administration Levothyroxine Sodium 100 mcg 12/04/24 06:30 12/04/24 06:13 Levothyroxine Sodium 100 Mcg Tablet PO 100 mcg DAILY@0630 LESLIE Administration Linaclotide 145 mcg 12/04/24 09:00 Linaclotide 145 Mcg Capsule PO DAILY LESLIE Loratadine 10 mg 12/04/24 09:00 Loratadine 10 Mg Tablet PO DAILY L[facility]LIE Lorazepam 0.5 mg 12/03/24 17:48 12/03/24 23:50 Lorazepam (*Crx) 0.5 Mg Tablet PO 0.5 mg BID PRN Administration Anxiety Pantoprazole Sodium 40 mg 12/04/24 09:00 Pantoprazole 40 Mg Tablet PO QAM [facility] Tramadol HCl 50 mg 12/03/24 17:48 12/04/24 02:20 Tramadol Hcl (*Crx) 50 Mg Tablet PO 50 mg BID PRN Administration Pain Zolpidem Tartrate 5 mg 12/03/24 21:00 12/03/24 20:34 Zolpidem Tartrate (*Crx) 5 Mg Tablet PO 5 mg QHS [facility] Administration Labs Labs: Laboratory Results - last 24 hr 12/03/24 12/03/24 12/04/24 10:24 12:11 04:56 WBC 7.6 5.9 RBC 4.10 L 3.97 L Hgb 13.4 13.2 Hct 40.1 39.7 MCV 97.8 100.0 MCH 32.7 33.2 MCHC 33.4 33.2 RDW 13.1 13.1 Plt Count 188 186 MPV 10.0 10.5 H Immature Gran % (Auto) 0.3 0.2 Neut % (Auto) 59.2 44.9 L Lymph % (Auto) 27.3 39.0 [place] % (Auto) 11.1 H 11.6 H Eos % (Auto) 1.6 3.4 Baso % (Auto) 0.5 0.9 Lymph # (Auto) 2.07 2.29 [place] # (Auto) 0.8 H 0.7 H Eos # (Auto) 0.1 0.2 Baso # (Auto) 0.0 0.1 Abs Immat Gran (auto) 0.02 0.01 Absolute Neuts (auto) 4.5 2.6 Absolute Nucleated RBC 0.000 0.000 Nucleated RBC % 0.0 0.0 PT 13.4 INR 1.0 APTT 28.3 Sodium 135 L 137 Potassium 3.6 3.6 Chloride 95 L 99 Carbon Dioxide 31 H 31 H Anion Gap 9 7 BUN 16 11 D Creatinine 0.59 L 0.53 L Estim Creat Clear Calc 55 60 Estimated GFR > 60 > 60 Glucose 95 117 H Calcium 9.3 9.1 Total Bilirubin 0.6 AST 29 ALT 16 Alkaline Phosphatase 92 Total Protein 7.6 Albumin 4.2 TSH (Reflex) 0.832 Urine Color Yellow Urine Appearance Cloudy H Urine pH 7.0 Ur Specific [place] 1.012 Urine Protein 2+ H Urine Glucose (UA) Negative Urine Ketones Negative Ur Blood (Man) Trace Urine Nitrate Negative Urine Bilirubin Negative Urine Urobilinogen 0.2 Add Ur Microanalysis Reviewed Leukocyte Esterase Rfl 3+ H Urine RBC 0-2 Urine WBC >100 H Ur Squamous Epith Cells None seen Urine Bacteria None seen Urine Casts 0-2 Quality VTE Prophylaxis VTE prophylaxis: mechanical ordered and pharmacologic ordered
[2024-12-04] MEDS: ATORVASTATIN 20 MG TABLET PO (09:00)
[2024-12-04] MEDS: GABAPENTIN 300 MG CAPSULE PO (09:00)
[2024-12-04] MEDS: LINACLOTIDE 145 MCG CAPSULE PO (09:00)
[2024-12-04] MEDS: LORATADINE 10 MG TABLET PO (09:00)
[2024-12-04] MEDS: PANTOPRAZOLE 40 MG TABLET PO (09:00)
[2024-12-04] MEDS: LORazepam (*CRX) 0.5 MG TABLET PO ×2 (09:00→16:02)
[2024-12-04] MEDS: DOCUSATE SODIUM 100 MG CAPSULE PO ×2 (09:00→16:01)
[2024-12-04] MEDS: ASPIRIN 81 MG ENTERIC TABLET PO (09:01)
[2024-12-04] MEDS: DULoxetine HCL 60 MG CAPSULE.DR 120 MG PO (09:01)
[2024-12-04] MEDS: ENOXAPARIN 40 MG/0.4 ML SYRINGE SUB-Q (09:07)
[2024-12-04] MEDS: ACETAMINOPHEN 325 MG TABLET 650 MG PO ×2 (11:42→15:12)
[2024-12-04 15:42] VITALS: BP 122/77; PULSE 80; RESP 18; TEMP 36.2; O2SAT 99
[2024-12-04] MEDS: cefTRIAXone 1 GM in SODIUM CHLORIDE 0.9% IV 50 ML 100 ML IVPB (17:49)
[2024-12-04 20:00] VITALS: O2SAT 98
[2024-12-04] MEDS: ZOLPIDEM TARTRATE (*CRX) 5 MG TABLET PO (21:12)
[2024-12-04 22:00] VITALS: BP 116/64; PULSE 74; RESP 18; TEMP 36.4; O2SAT 98
[2024-12-05 05:27] LABS: Hematocrit 36.7 % (37.0-47.0); Hemoglobin 12.0 g/dL (12.0-15.0); Immature Granulocyte Percent A 0.4 % (0-0.5); Lymphocytes Absolute Auto 1.53 K/mm3 (0.9-3.2); Mean Corpuscular HGB Conc 32.7 g/dl (32-36); Mean Corpuscular Hemoglobin 33.2 pg (26-34); Mean Corpuscular Volume 101.7 fl (80-100); Nucleated Red Blood Cells Absolute Auto 0.000 K/mm3 (0.0-0.012); Nucleated Red Blood Cells Perc 0.0 % (0.0-0.2); Platelet Count Result 168 k/mm3 (150-375); Red Blood Count 3.61 M/mm3 (4.2-5.4); White Blood Count 4.6 K/mm3 (4.5-10.0)
[2024-12-05 06:00] VITALS: BP 141/72; PULSE 73; RESP 18; TEMP 36.4; O2SAT 98
[2024-12-05 06:04] LABS: Anion Gap 6 mmol/L (4-12); Blood Urea Nitrogen 10 mg/dL (7-17); Calcium 9.0 mg/dL (8.4-10.2); Carbon Dioxide 29 mmol/L (22-30); Chloride 102 mmol/L (98-107); Estimated CRCL calculation 58 ml/min; Estimated Glomerular Filt Rate > 60; Glucose 120 mg/dL (65-110); Potassium 3.4 mmol/L (3.4-5.0); Sodium 137 mmol/L (137-145)
[2024-12-05] MEDS: LEVOTHYROXINE SODIUM 100 MCG TABLET PO (06:17)
[2024-12-05] MEDS: traMADol HCL (*CRX) 50 MG TABLET PO ×2 (06:21→20:55)
--- NOTE | 2024-12-05 07:04 | P.PNIM_ITS ---
Progress Note: A&P Assessment and Plan (1) Acute UTI: Code(s): N39.0 - Urinary tract infection, site not specified Status: Acute Assessment and Plan: - UA with 3+ LE, >100 WBC - symptomatic with weakness, suprapubic/flank pain, urinary hesitancy - last culture 08/2024 with pansensitive E. Coli - urine culture no growth however patient had improvement in her symptoms with IV Rocephin - afebrile, no leukocytosis, HDS - will continue IV Rocephin for one more day. Plan to transition to Augmentin tomorrow. Patient also needs to follow-up with urology as outpatient. (2) Constipation: Code(s): K59.00 - Constipation, unspecified Status: Acute Assessment and Plan: - continue home Colace, Linzess. Add Miralax. (3) Hypothyroid: Code(s): E03.9 - Hypothyroidism, unspecified Status: Acute Assessment and Plan: - continue Synthroid (4) Hypertension: Code(s): I10 - Essential (primary) hypertension Status: Acute Assessment and Plan: - resume home amlodipine. Hold HCTZ due to dehydration. (5) Hyperlipidemia: Code(s): E78.5 - Hyperlipidemia, unspecified Status: Acute Assessment and Plan: -Continue statin Plan DVT prophylaxis: Lovenox Code status: full code Dispo: home tomorrow Subjective Date/time seen: 12/05/24 07:04 Interval history: 89-year-old female past medical history of hypothyroidism, hyperlipidemia, hypertension, and history of frequent UTIs who presents with complaints of weakness, urinary frequency and burning. Patient seen and examined at bedside. Feeling less weak this AM. Still having dysuria, urgency and flank pain. Review of Systems 2 Review of Systems: 12 systems were reviewed and are negativ e except for as per HPI. Exam Narrative: General: NAD. Appears deconditioned. Eyes: EOMI ENT: neck supple Cardiovascular: Regular rate and rhythm Respiratory: Clear to auscultation, respirations even and unlabored on RA Gastrointestinal: Soft, non tender Genitourinary: no suprapubic tenderness. Musculoskeletal: No edema Skin: warm, dry Neuro: Alert. Psych: Mood appropriate Objective Data Vital Signs Vital Signs: Vital Signs - 24 hr 12/04/24 09:10 12/04/24 09:49 12/04/24 14:10 Temperature Pulse Rate Respiratory Rate Blood Pressure Pulse Oximetry Oxygen Delivery Room Air Room Air Room Air 12/04/24 15:42 12/04/24 20:00 12/04/24 22:00 Temperature 97.1 F L 97.6 F Pulse Rate 80 74 Respiratory Rate 18 18 Blood Pressure 122/77 116/64 Pulse Oximetry 99 98 98 Oxygen Delivery Room Air 12/05/24 06:00 Temperature 97.5 F L Pulse Rate 73 Respiratory Rate 18 Blood Pressure 141/72 H Pulse Oximetry 98 Oxygen Delivery Intake/Output Intake/Output: Intake & Output 12/02/24 12/03/24 12/04/24 12/05/24 23:59 23:59 23:59 23:59 Intake Total 50 1530 Output Total 50 Balance 0 1530 Meds/Results Medications: Active Medications Generic Name Dose Route Start Last Admin Trade Name Freq PRN Reason Stop Dose Admin Acetaminophen 650 mg 12/03/24 14:03 12/04/24 15:12 Acetaminophen 325 Mg Tablet PO 650 mg Q4H PRN Administration Mild Pain (1-3) or Fever Amlodipine Besylate 5 mg 12/04/24 09:00 12/04/24 09:00 Amlodipine Besylate 5 Mg Tablet PO 5 mg DAILY LESLIE Administration Aspirin 81 mg 12/04/24 09:00 12/04/24 09:01 Aspirin 81 Mg Enteric Tablet PO 81 mg DAILY LESLIE Administration Atorvastatin Calcium 20 mg 12/04/24 09:00 12/04/24 09:00 Atorvastatin 20 Mg Tablet PO 20 mg DAILY LESLIE Administration Docusate Sodium 100 mg 12/03/24 17:00 12/04/24 16:01 Docusate Sodium 100 Mg Capsule PO 100 mg BID LESLIE Administration Duloxetine HCl 120 mg 12/04/24 09:00 12/04/24 09:01 Duloxetine Hcl 60 Mg Capsule.Dr PO 120 mg DAILY LESLIE Administration Enoxaparin Sodium 40 mg 12/04/24 09:00 12/04/24 09:07 Enoxaparin 40 Mg/0.4 Ml Syringe SUB-Q 40 mg DAILY LESLIE Administration Gabapentin 300 mg 12/04/24 09:00 12/04/24 09:00 Gabapentin 300 Mg Capsule PO 300 mg DAILY LESLIE Administration Ceftriaxone Sodium 1 gm/ 50 mls @ 100 mls/hr 12/03/24 18:00 12/04/24 18:19 Sodium Chloride IVPB Infused Q24H LESLIE Infusion Levothyroxine Sodium 100 mcg 12/04/24 06:30 12/05/24 06:17 Levothyroxine Sodium 100 Mcg Tablet PO 100 mcg DAILY@0630 LESLIE Administration Linaclotide 145 mcg 12/04/24 09:00 12/04/24 09:00 Linaclotide 145 Mcg Capsule PO 145 mcg DAILY [facility]LIE Administration Loratadine 10 mg 12/04/24 09:00 12/04/24 09:00 Loratadine 10 Mg Tablet PO 10 mg DAILY LESLIE Administration Lorazepam 0.5 mg 12/03/24 17:48 12/04/24 16:02 Lorazepam (*Crx) 0.5 Mg Tablet PO 0.5 mg BID PRN Administration Anxiety Pantoprazole Sodium 40 mg 12/04/24 09:00 12/04/24 09:00 Pantoprazole 40 Mg Tablet PO 40 mg QAM L[facility]LIE Administration Tramadol HCl 50 mg 12/03/24 17:48 12/05/24 06:21 Tramadol Hcl (*Crx) 50 Mg Tablet PO 50 mg BID PRN Administration Pain Zolpidem Tartrate 5 mg 12/03/24 21:00 12/04/24 21:12 Zolpidem Tartrate (*Crx) 5 Mg Tablet PO 5 mg QHS [facility]LIE Administration Labs Labs: Laboratory Results - last 24 hr 12/05/24 04:49 WBC 4.6 RBC 3.61 L Hgb 12.0 Hct 36.7 L MCV 101.7 H MCH 33.2 MCHC 32.7 RDW 13.2 Plt Count 168 MPV 10.4 Immature Gran % (Auto) 0.4 Neut % (Auto) 48.6 Lymph % (Auto) 33.2 [place] % (Auto) 13.4 H Eos % (Auto) 3.7 Baso % (Auto) 0.7 Lymph # (Auto) 1.53 [place] # (Auto) 0.6 Eos # (Auto) 0.2 Baso # (Auto) 0.0 Abs Immat Gran (auto) 0.02 Absolute Neuts (auto) 2.2 Absolute Nucleated RBC 0.000 Nucleated RBC % 0.0 Sodium 137 Potassium 3.4 Chloride 102 Carbon Dioxide 29 Anion Gap 6 BUN 10 Creatinine 0.55 L Estim Creat Clear Calc 58 Estimated GFR > 60 Glucose 120 H Calcium 9.0 Quality VTE Prophylaxis VTE prophylaxis: mechanical ordered and pharmacologic ordered
[2024-12-05] MEDS: ACETAMINOPHEN 325 MG TABLET 650 MG PO (09:07)
[2024-12-05] MEDS: PANTOPRAZOLE 40 MG TABLET PO (09:07)
[2024-12-05] MEDS: LORATADINE 10 MG TABLET PO (09:07)
[2024-12-05] MEDS: ASPIRIN 81 MG ENTERIC TABLET PO (09:07)
[2024-12-05] MEDS: ATORVASTATIN 20 MG TABLET PO (09:07)
[2024-12-05] MEDS: DOCUSATE SODIUM 100 MG CAPSULE PO ×2 (09:07→18:16)
[2024-12-05] MEDS: LINACLOTIDE 145 MCG CAPSULE PO (09:07)
[2024-12-05] MEDS: GABAPENTIN 300 MG CAPSULE PO (09:07)
[2024-12-05] MEDS: DULoxetine HCL 60 MG CAPSULE.DR 120 MG PO (09:07)
[2024-12-05] MEDS: LORazepam (*CRX) 0.5 MG TABLET PO ×2 (09:07→15:45)
[2024-12-05] MEDS: ENOXAPARIN 40 MG/0.4 ML SYRINGE SUB-Q (09:08)
[2024-12-05 11:06] VITALS: O2SAT 98
[2024-12-05 15:42] VITALS: BP 119/80; PULSE 84; RESP 18; TEMP 36.2; O2SAT 100
[2024-12-05] MEDS: cefTRIAXone 1 GM in SODIUM CHLORIDE 0.9% IV 50 ML 100 ML IVPB (18:16)
[2024-12-05] MEDS: ZOLPIDEM TARTRATE (*CRX) 5 MG TABLET PO (20:55)
[2024-12-05 21:15] VITALS: BP 114/68; PULSE 64; RESP 12; TEMP 36.3; O2SAT 98
[2024-12-06 05:08] VITALS: BP 123/70; PULSE 82; RESP 16; TEMP 36.4; O2SAT 96
[2024-12-06 05:43] LABS: Hematocrit 37.6 % (37.0-47.0); Hemoglobin 12.4 g/dL (12.0-15.0); Immature Granulocyte Percent A 0.5 % (0-0.5); Lymphocytes Absolute Auto 1.69 K/mm3 (0.9-3.2); Mean Corpuscular HGB Conc 33.0 g/dl (32-36); Mean Corpuscular Hemoglobin 33.2 pg (26-34); Mean Corpuscular Volume 100.5 fl (80-100); Nucleated Red Blood Cells Absolute Auto 0.000 K/mm3 (0.0-0.012); Nucleated Red Blood Cells Perc 0.0 % (0.0-0.2); Platelet Count Result 180 k/mm3 (150-375); Red Blood Count 3.74 M/mm3 (4.2-5.4); White Blood Count 5.9 K/mm3 (4.5-10.0)
[2024-12-06 06:02] LABS: Anion Gap 7 mmol/L (4-12); Blood Urea Nitrogen 10 mg/dL (7-17); Calcium 8.9 mg/dL (8.4-10.2); Carbon Dioxide 32 mmol/L (22-30); Chloride 101 mmol/L (98-107); Estimated CRCL calculation 52 ml/min; Estimated Glomerular Filt Rate > 60; Glucose 119 mg/dL (65-110); Potassium 3.6 mmol/L (3.4-5.0); Sodium 140 mmol/L (137-145)
[2024-12-06] MEDS: LEVOTHYROXINE SODIUM 100 MCG TABLET PO (06:17)
[2024-12-06 07:42] LABS: Magnesium 1.6 mg/dL (1.6-2.3)
[2024-12-06 08:27] VITALS: BP 117/85; PULSE 78
[2024-12-06] MEDS: ASPIRIN 81 MG ENTERIC TABLET PO (08:27)
[2024-12-06] MEDS: ATORVASTATIN 20 MG TABLET PO (08:27)
[2024-12-06] MEDS: GABAPENTIN 300 MG CAPSULE PO (08:28)
[2024-12-06] MEDS: LINACLOTIDE 145 MCG CAPSULE PO (08:28)
[2024-12-06] MEDS: PANTOPRAZOLE 40 MG TABLET PO (08:28)
[2024-12-06] MEDS: LORATADINE 10 MG TABLET PO (08:28)
[2024-12-06] MEDS: DOCUSATE SODIUM 100 MG CAPSULE PO ×2 (08:28→16:41)
[2024-12-06] MEDS: ENOXAPARIN 40 MG/0.4 ML SYRINGE SUB-Q (08:29)
[2024-12-06] MEDS: DULoxetine HCL 60 MG CAPSULE.DR 120 MG PO (08:30)
[2024-12-06] MEDS: BISACODYL 10 MG SUPPOSITORY RECTAL (10:09)
[2024-12-06 13:16] VITALS: BP 123/70; PULSE 96; RESP 18; TEMP 36.4; O2SAT 98
[2024-12-06] MEDS: LORazepam (*CRX) 0.5 MG TABLET PO (13:28)
--- NOTE | 2024-12-06 13:29 | PC.NURSE ---
On 12/06/24, the student, Elizabeth Wiggins, provided care and completed [facility] documentation on this patient. I have reviewed the student's documentation and agree with the findings.
--- NOTE | 2024-12-06 16:34 | P.PNIM_ITS ---
Progress Note: A&P Assessment and Plan (1) Acute UTI: Code(s): N39.0 - Urinary tract infection, site not specified Status: Acute Assessment and Plan: - UA with 3+ LE, >100 WBC - symptomatic with weakness, suprapubic/flank pain, urinary hesitancy -CT showed bladder wall thickening - last culture 08/2024 with pansensitive E. Coli - urine culture no growth however patient had improvement in her symptoms with I V Rocephin - afebrile, no leukocytosis, HDS -transition to Augmentin to complete 7 day course. Follow-up with Urology as outpatient. (2) Constipation: Code(s): K59.00 - Constipation, unspecified Status: Acute Assessment and Plan: -CT of possible ileus however patient with no abdominal pain, nausea or vomiting. Abdomen soft, bowel sounds active. - continue home Colace, Linzess. Added Miralax. Trialed suppository and enema today with no BM. Trial mag citrate. (3) Hypothyroid: Code(s): E03.9 - Hypothyroidism, unspecified Status: Acute Assessment and Plan: - continue Synthroid (4) Hypertension: Code(s): I10 - Essential (primary) hypertension Status: Acute Assessment and Plan: - resume home amlodipine. Hold HCTZ due to dehydration. (5) Hyperlipidemia: Code(s): E78.5 - Hyperlipidemia, unspecified Status: Acute Assessment and Plan: -Continue statin Plan DVT prophylaxis: Lovenox Code status: full code Dispo: home tomorrow Subjective Date/time seen: 12/06/24 16:34 Interval history: 89-year-old female past medical history of hypothyroidism, hyperlipidemia, hypertension, and history of frequent UTIs who presents with complaints of weakness, urinary frequency and burning. Patient seen and examined at bedside. Feeling much better this AM, but still no bowel movement since admission. Denying nausea, abdominal pain. Review of Systems Review of Systems: 12 systems were reviewed and are negativ e except for as per HPI. Exam Narrative: General: NAD. Appears deconditioned. Eyes: EOMI ENT: neck supple Cardiovascular: Regular rate and rhythm Respiratory: Clear to auscultation, respirations even and unlabored on RA Gastrointestinal: Soft, non tender, bowel sounds active Genitourinary: no suprapubic tenderness. Musculoskeletal: No edema Skin: warm, dry Neuro: Alert. Psych: Mood appropriate Objective Data Vital Signs Vital Signs: Vital Signs - 24 hr 12/05/24 20:00 12/05/24 21:15 12/06/24 05:08 Temperature 97.3 F L 97.5 F L Pulse Rate 64 82 Respiratory Rate 12 16 Blood Pressure 114/68 123/70 Pulse Oximetry 98 96 Oxygen Delivery Room Air 12/06/24 08:00 12/06/24 08:27 12/06/24 13:16 Temperature 97.5 F L Pulse Rate 78 96 Respiratory Rate 18 Blood Pressure 117/85 123/70 Pulse Oximetry 98 Oxygen Delivery Room Air Intake/Output Intake/Output: Intake & Output 12/03/24 12/04/24 12/05/24 12/06/24 23:59 23:59 23:59 23:59 Intake Total 50 1530 1250 580 Output Total 50 2 Balance 0 1530 1250 578 Meds/Results Medications: Active Medications Generic Name Dose Route Start Last Admin Trade Name Freq PRN Reason Stop Dose Admin Acetaminophen 650 mg 12/03/24 14:03 12/05/24 09:07 Acetaminophen 325 Mg Tablet PO 650 mg Q4H PRN Administration Mild Pain (1-3) or Fever Amlodipine Besylate 5 mg 12/04/24 09:00 12/06/24 08:27 Amlodipine Besylate 5 Mg Tablet PO 5 mg DAILY LESLIE Administration Aspirin 81 mg 12/04/24 09:00 12/06/24 08:27 Aspirin 81 Mg Enteric Tablet PO 81 mg DAILY LESLIE Administration Atorvastatin Calcium 20 mg 12/04/24 09:00 12/06/24 08:27 Atorvastatin 20 Mg Tablet PO 20 mg DAILY LESLIE Administration Docusate Sodium 100 mg 12/03/24 17:00 12/06/24 08:28 Docusate Sodium 100 Mg Capsule PO 100 mg BID LESLIE Administration Duloxetine HCl 120 mg 12/04/24 09:00 12/06/24 08:30 Duloxetine Hcl 60 Mg Capsule.Dr PO 120 mg DAILY LESLIE Administration Enoxaparin Sodium 40 mg 12/04/24 09:00 12/06/24 08:29 Enoxaparin 40 Mg/0.4 Ml Syringe SUB-Q 40 mg DAILY LESLIE Administration Gabapentin 300 mg 12/04/24 09:00 12/06/24 08:28 Gabapentin 300 Mg Capsule PO 300 mg DAILY LESLIE Administration Ceftriaxone Sodium 1 gm/ 50 mls @ 100 mls/hr 12/03/24 18:00 12/05/24 18:16 Sodium Chloride IVPB 100 mls/hr Q24H LESLIE Administration Levothyroxine Sodium 100 mcg 12/04/24 06:30 12/06/24 06:17 Levothyroxine Sodium 100 Mcg Tablet PO 100 mcg DAILY@0630 LESLIE Administration Linaclotide 145 mcg 12/04/24 09:00 12/06/24 08:28 Linaclotide 145 Mcg Capsule PO 145 mcg DAILY L[facility]LIE Administration Loratadine 10 mg 12/04/24 09:00 12/06/24 08:28 Loratadine 10 Mg Tablet PO 10 mg DAILY L[facility]LIE Administration Lorazepam 0.5 mg 12/03/24 17:48 12/06/24 13:28 Lorazepam (*Crx) 0.5 Mg Tablet PO 0.5 mg BID PRN Administration Anxiety Magnesium Citrate 150 ml 12/06/24 16:33 Magnesium Citrate 300 Ml Btl PO 12/06/24 16:34 ONCE ONE Pantoprazole Sodium 40 mg 12/04/24 09:00 12/06/24 08:28 Pantoprazole 40 Mg Tablet PO 40 mg QAM LESLIE Administration Polyethylene Glycol 17 gm 12/05/24 10:20 12/06/24 08:29 Polyethylene Glycol 3350 17 Gm Powd.Pack PO 17 gm QAM LESLIE Administration Tramadol HCl 50 mg 12/03/24 17:48 12/05/24 20:55 Tramadol Hcl (*Crx) 50 Mg Tablet PO 50 mg BID PRN Administration Pain Zolpidem Tartrate 5 mg 12/03/24 21:00 12/05/24 20:55 Zolpidem Tartrate (*Crx) 5 Mg Tablet PO 5 mg QHS LESLIE Administration Radiology Results: ITS Impressions Abdomen/Pelvis CT 12/05/24 15:38 IMPRESSION: 1. Nonspecific probable colonic ileus. Follow-up suggested to assess resolution. 2. Cystitis. 3. Mild gastritis. 4. Incidental findings above Labs Labs: Laboratory Results - last 24 hr 12/06/24 05:07 WBC 5.9 RBC 3.74 L Hgb 12.4 Hct 37.6 MCV 100.5 H MCH 33.2 MCHC 33.0 RDW 13.2 Plt Count 180 MPV 10.1 Immature Gran % (Auto) 0.5 Neut % (Auto) 54.6 Lymph % (Auto) 28.6 [place] % (Auto) 12.0 H Eos % (Auto) 3.6 Baso % (Auto) 0.7 Lymph # (Auto) 1.69 [place] # (Auto) 0.7 H Eos # (Auto) 0.2 Baso # (Auto) 0.0 Abs Immat Gran (auto) 0.03 Absolute Neuts (auto) 3.2 Absolute Nucleated RBC 0.000 Nucleated RBC % 0.0 Sodium 140 Potassium 3.6 Chloride 101 Carbon Dioxide 32 H Anion Gap 7 BUN 10 Creatinine 0.63 L Estim Creat Clear Calc 52 Estimated GFR > 60 Glucose 119 H Calcium 8.9 Magnesium 1.6 Quality VTE Prophylaxis VTE prophylaxis: mechanical ordered and pharmacologic ordered
[2024-12-06] MEDS: MAGNESIUM CITRATE 300 ML BTL 150 ML PO (16:42)
[2024-12-06] MEDS: traMADol HCL (*CRX) 50 MG TABLET PO ×2 (16:43→21:49)
[2024-12-06 20:38] VITALS: BP 119/56; PULSE 76; RESP 20; TEMP 36.5; O2SAT 96
[2024-12-06 21:28] VITALS: O2SAT 94
[2024-12-06] MEDS: ZOLPIDEM TARTRATE (*CRX) 5 MG TABLET PO (21:46)
[2024-12-07 05:12] LABS: Hematocrit 36.0 % (37.0-47.0); Hemoglobin 11.7 g/dL (12.0-15.0); Immature Granulocyte Percent A 0.5 % (0-0.5); Lymphocytes Absolute Auto 2.17 K/mm3 (0.9-3.2); Mean Corpuscular HGB Conc 32.5 g/dl (32-36); Mean Corpuscular Hemoglobin 32.8 pg (26-34); Mean Corpuscular Volume 100.8 fl (80-100); Nucleated Red Blood Cells Absolute Auto 0.000 K/mm3 (0.0-0.012); Nucleated Red Blood Cells Perc 0.0 % (0.0-0.2); Platelet Count Result 165 k/mm3 (150-375); Red Blood Count 3.57 M/mm3 (4.2-5.4); White Blood Count 6.5 K/mm3 (4.5-10.0)
[2024-12-07 05:46] VITALS: BP 109/48; PULSE 101; RESP 20; TEMP 35.6; O2SAT 96
[2024-12-07] MEDS: LEVOTHYROXINE SODIUM 100 MCG TABLET PO (05:54)
[2024-12-07 06:07] LABS: Anion Gap 6 mmol/L (4-12); Blood Urea Nitrogen 14 mg/dL (7-17); Calcium 8.9 mg/dL (8.4-10.2); Carbon Dioxide 33 mmol/L (22-30); Chloride 99 mmol/L (98-107); Estimated CRCL calculation 56 ml/min; Estimated Glomerular Filt Rate > 60; Glucose 109 mg/dL (65-110); Potassium 3.8 mmol/L (3.4-5.0); Sodium 138 mmol/L (137-145)
[2024-12-07 08:00] VITALS: BP 103/65; PULSE 85; RESP 18; TEMP 36.4; O2SAT 97
[2024-12-07] MEDS: ASPIRIN 81 MG ENTERIC TABLET PO (08:13)
[2024-12-07] MEDS: ATORVASTATIN 20 MG TABLET PO (08:13)
[2024-12-07] MEDS: PANTOPRAZOLE 40 MG TABLET PO (08:14)
[2024-12-07] MEDS: DULoxetine HCL 60 MG CAPSULE.DR 120 MG PO (08:14)
[2024-12-07] MEDS: DOCUSATE SODIUM 100 MG CAPSULE PO (08:14)
[2024-12-07] MEDS: LORATADINE 10 MG TABLET PO (08:14)
[2024-12-07] MEDS: ENOXAPARIN 40 MG/0.4 ML SYRINGE SUB-Q (08:14)
[2024-12-07] MEDS: LINACLOTIDE 145 MCG CAPSULE PO (08:14)
[2024-12-07] MEDS: GABAPENTIN 300 MG CAPSULE PO (08:14)
[2024-12-07 08:19] VITALS: BP 130/77
--- NOTE | 2024-12-07 11:22 | PM.DS ---
DS: Admitting Diagnosis Discharge Date 12/07/24 Admitting Diagnosis - UTI - constipation - hypothyroidism - HTN - HLD DS: Discharge Diagnosis Discharge Diagnosis (1) Acute UTI: Code(s): N39.0 - Urinary tract infection, site not specified Status: Acute (2) Constipation: Code(s): K59.00 - Constipation, unspecified Status: Acute (3) Hypothyroid: Code(s): E03.9 - Hypothyroidism, unspecified Status: Acute (4) Hypertension: Code(s): I10 - Essential (primary) hypertension Status: Acute (5) Hyperlipidemia: Code(s): E78.5 - Hyperlipidemia, unspecified Status: Acute DS: Summary Hospital Course Reason for hospitalization: - UTI - constipation - hypothyroidism - HTN - HLD Hospital Course: Patient is an 89 yo female with past medical history of hypothyroidism, hypertension, hyperlipidemia who presented to the emergency department with complaints of weakness, urinary frequency and dysuria. Has history of frequent UTIs and constipation as well. Lab work in the ED showed sodium of 135, chloride of 95, carbon dioxide 31, creatinine of 0.59, UA is cloudy with 3+ leukocyte esterase over 100 wbc's. Patient admitted for acute UTI and started on IV antibiotics. Urine culture showed no growth, but given patient was symptomatic, transitioned IV Rocephin to Augmentin to complete 7 day course. While admitted, patient complained of left lower quadrant abdominal pain. CT abdomen/pelvis with IV contrast showed nonspecific probable colonic ileus, cystitis and mild gastritis. Patient reported having a bowel movement in several days and has chronic constipation for which she follows with GI. She is managed on Linzess at home. Patient received suppositories, enema and Mag citrate and subsequently had multiple bowel movements. Abdominal pain resolved. Patient was tolerating a regular diet with no nausea or vomiting. Instructed to continue Linzess, add MiraLax and high-fiber diet. Maintain adequate p.o. hydration. She was ambulating independently on day of discharge. Patient instructed to follow up closely with Urology and GI as previously scheduled. She will also follow up with her primary care provider within 1 week. Instructed to hold HCTZ until follow-up with PCP due to concerns for dehydration. Patient discharged to assisted living in stable condition. Status at Discharge Functional status at discharge: independent ambulation Overall status at discharge: patient is back to baseline Time Spent with Patient Time attestation: Total time spent providing and/or coordinating discharge services: Time spent: Greater than 30 minutes Exam Narrative: General: NAD. Appears deconditioned. Eyes: EOMI ENT: neck supple Cardiovascular: Regular rate and rhythm Respiratory: Clear to auscultation, respirations even and unlabored on RA Gastrointestinal: Soft, non tender, bowel sounds active Genitourinary: no suprapubic tenderness. Musculoskeletal: No edema Skin: warm, dry Neuro: Alert. Psych: Mood appropriate DS: Data Data Completed and Pending Completed studies during hospitalization: ITS Impressions Abdomen/Pelvis CT 12/05/24 15:38 IMPRESSION: 1. Nonspecific probable colonic ileus. Follow-up suggested to assess resolution. 2. Cystitis. 3. Mild gastritis. 4. Incidental findings above Labs on day of discharge: Labs from last 24 hours 12/07/24 04:30 WBC 6.5 RBC 3.57 L Hgb 11.7 L Hct 36.0 L MCV 100.8 H MCH 32.8 MCHC 32.5 RDW 13.1 Plt Count 165 MPV 10.3 Immature Gran % (Auto) 0.5 Neut % (Auto) 48.9 Lymph % (Auto) 33.5 [place] % (Auto) 13.6 H Eos % (Auto) 2.9 Baso % (Auto) 0.6 Lymph # (Auto) 2.17 [place] # (Auto) 0.9 H Eos # (Auto) 0.2 Baso # (Auto) 0.0 Abs Immat Gran (auto) 0.03 Absolute Neuts (auto) 3.2 Absolute Nucleated RBC 0.000 Nucleated RBC % 0.0 Sodium 138 Potassium 3.8 Chloride 99 Carbon Dioxide 33 H Anion Gap 6 BUN 14 Creatinine 0.58 L Estim Creat Clear Calc 56 Estimated GFR > 60 Glucose 109 Calcium 8.9 Preliminary micro results at discharge 12/03/24 12:11 Blood Culture - Preliminary Blood 12/03/24 12:22 Blood Culture - Preliminary Blood Discharge Plan Discharge Attending physician on discharge: Ortega Nascimento Consulting providers: Katrina Garcia Discharging Clinician: Katrina Garcia Anticipated Discharge Date/Time: 12/07/24 11:22 Patient Disposition: [facility] Activity: as tolerated Diet: as tolerated and high fiber Discharge Instructions: Take all medications as prescribed. Finish antibiotics if prescribed, even if you are feeling better. Follow-up with your primary care provider in one week. Due to concerns for dehydration on admission, hold your hydrochlorothiazide until you follow-up with your primary care doctor. Check your blood pressures daily and keep a log to bring to your follow-up appointments. Start Miralax daily for constipation. Can increase to 2-3 times daily to maintain regular bowel movements. Add fibrous foods like apples, kiwi, shreyas and drink plenty of water daily. Keep your scheduled follow-up appointments with GI and urology. Return to the emergency department if you develop chest pain, shortness of breath, persistent fever >100.4, confusion, loss of consciousness. Patient Instructions: Antibiotic Form, Amoxicillin/Clavulanate Potassium (By mouth), Constipation (DC) Patient Language: [place] Island[place] Stand Alone Forms: General Discharge Information Follow-up/Referrals: Roni Swift MD [Physician, Urology] - Keep Reg. Scheduled Appt. Referral Note: bladder thickening, frequent UTIs Betty,ALEKSANDRA Hunter [Primary Care Provider, Unknown] - Call for Appointment Referral Note: 1 week Discharge Medications: New amoxicillin-pot clavulanate 875-125 mg tablet 1 tablet PO Q12H Qty: 7 0RF polyethylene glycol 3350 17 gram/dose powder 17 g PO DAILY Qty: 119 0RF Continued zolpidem 10 mg tablet 6.25 mg PO QHS atorvastatin 20 mg Tablet 20 mg PO DAILY amlodipine 5 mg Tablet 5 mg PO DAILY potassium chloride 10 mEq Tablet Extended Release 20 meq PO DAILY duloxetine 60 mg Capsule,Delayed Release(Dr/Ec) 120 mg PO DAILY levothyroxine [Synthroid] 50 mcg tablet 100 mcg PO DAILY ibuprofen 400 mg tablet 400 mg PO TID Qty: 14 0RF aspirin [Adult Aspirin Regimen] 81 mg tablet,delayed release (DR/EC) 81 mg PO DAILY gabapentin 300 mg capsule 300 mg PO DAILY lorazepam 0.5 mg tablet 0.5 mg PO BID PRN (Reason: anxiety) omeprazole 20 mg capsule,delayed release(DR/EC) 20 mg PO DAILY tramadol 50 mg tablet 50 mg PO BID PRN (Reason: pain) loratadine 10 mg tablet 10 mg PO DAILY Qty: 20 0RF acetaminophen 500 mg capsule 1,000 mg PO Q6H PRN (Reason: pain) Qty: 60 0RF oxycodone 5 mg tablet 5 mg PO Q4H PRN (Reason: pain) Qty: 14 0RF Linzess 145 mcg capsule 145 mcg PO DAILY 30 Days Qty: 30 2RF Held hydrochlorothiazide 12.5 mg Capsule 12.5 mg PO DAILY Hold Instructions: Resume on 12/14/24. Hold until you follow-up with your primary care provider. Date of admission: 12/04/24 17:36 Primary Care Provider: Betty,Tracy Jimenez Admitting Provider: Capo Parikh Attending physician on admission: Capo Parikh Condition: Stable
== END 2024-12-07 13:00 | DRG 690 ==
LOC: ANHED 11:40 → ANH2MED 13:21
PROVIDERS: Nurse Practitioner Gerontology; Admitting Provider Internal Medicine; Emergency Provider Emergency Medicine; PCP Nurse Practitioner Family; Visit Provider Physician Assistant
DX: N39.0 Urinary tract infection, site not specified (principal); K59.09 Other constipation; E86.0 Dehydration; E03.9 Hypothyroidism, unspecified; E78.5 Hyperlipidemia, unspecified; I10 Essential (primary) hypertension; M48.00 Spinal stenosis, site unspecified; F10.90 Alcohol use, unspecified, uncomplicated; Z79.891 Long term (current) use of opiate analgesic; Z79.82 Long term (current) use of aspirin; Z87.440 Personal history of urinary (tract) infections
CPT/HCPCS: 36415; 74177; 80048; 80053; 81001; 83735; 84443; 85025; 85610; 85730; 87040; 87086; 96361; 96365; 96372; 97161; 97165; 99285; A9270; G0378; J0696; J1650; J7030; J7040; Q9967